=== PATIENT | male | born 1945 | race Caucasian/White ===

== ENCOUNTER → 2017-12-01 13:18 | Outpatient (CLI) | payer MEDICARE, OTHER, SELFPAY ==
[2017-12-01 14:04] LABS: Appearance Urine UA CLOUDY; Bilirubin Urine UA 1+ (NEGATIVE); Color Urine UA YELLOW; Glucose Urine UA NEGATIVE (Normal); Ketones Urine UA NEGATIVE (NEGATIVE); Leukocyte Esterase Urine UA 1+ (NEGATIVE); Nitrite Urine UA Negative (Negative); Occult Blood Urine UA 3+ (Negative); Protein Urine UA 3+ (Negative); Specific Gravity Urine UA 1.025 (1.000-1.035); Urobilinogen Urine UA 0.2 E.U./dL (0.2)
[2017-12-01 14:12] LABS: Ictotest Urine Negative (Negative)
[2017-12-01 14:17] LABS: Bacteria Urine Occasional (0-1); Culture Indicated Urine Specimen Cultured; RBC Urine 10-30/HPF (0-5/HPF); WBC Urine 10-30/HPF (0-5/HPF)
== END ==
PROVIDERS: PCP Student in an Organized Health Care Education/Training Program; Visit Provider Urology
DX: R30.0 Dysuria (principal)
CPT/HCPCS: 81001; 87086

== ENCOUNTER 2017-12-01 15:27 | Emergency (ER) | payer MEDICARE, OTHER, SELFPAY ==
--- NOTE | 2017-12-01 15:32 | DI.RAD.S_ITS ---
PROCEDURE: XR CHEST 2V INDICATIONS: postop fever with cough TECHNIQUE: 2 views of the chest were acquired. COMPARISON: [facility], , CHEST 1VW (PORTABLE), 03/26/2013, 12:40. FINDINGS: Surgical changes and devices: None. Lungs and pleura: No pleural effusions or pneumothorax. Lungs are clear. Right hemidiaphragm eventration. Mediastinum: Mediastinal contours are normal. Heart size is normal. Bones and chest wall: No suspicious bony abnormalities. Soft tissues appear unremarkable. IMPRESSION: No acute cardiopulmonary disease. Dictated by: Seema Day M.D. on 12/01/2017 at 15:51 Approved by: Seema Day M.D. on 12/01/2017 at 15:52
[2017-12-01 15:33] VITALS: BP 176/86; PULSE 86; RESP 18; TEMP 38.7; O2SAT 97; BMI 26.6
--- NOTE | 2017-12-01 15:43 | ED.FEVER ---
HPI - Fever General Chief Complaint: Fever Stated Complaint: FEVER, 10 DAYS POST OP, COUGH Time Seen by Provider: 12/01/17 15:31 Source: patient Mode of arrival: ambulatory Limitations: no limitations History of Present Illness HPI Narrative: Patient is here for evaluation of a fever. Earlier this month he had a TURP completed. He states that he had the catheter removed approximately 4 days ago. He states since then he has had urinary frequency and urgency and burning in blood. Developed a fever over the past 24 hr. Has also had a cough. Was also had upper abdominal pain but this does not seem to be new. He has had this for months. Has seen GI in the past for this. Related Data Home Medications Medication Instructions Recorded Confirmed levothyroxine [Synthroid] 25 mcg PO QDAY #0 01/21/17 11/01/17 rosuvastatin [Crestor] 20 mg PO QDAY #0 01/21/17 11/01/17 omega-3 acid ethyl esters [Lovaza] 1 gm PO #0 04/07/17 11/01/17 vitamin B complex [B 1 tab PO QDAY #0 04/07/17 11/01/17 Complex-Vitamin B12] Previous Rx's Medication Instructions Recorded tramadol 50 mg PO SEE INSTRUCTIONS #30 tab 04/07/17 pregabalin [Lyrica] 150 mg PO SEE INSTRUCTIONS #14 cap 04/11/17 naratriptan 2.5 mg PO SEE INSTRUCTIONS PRN #36 05/02/17 tab indomethacin 25 mg capsule 25 mg PO .see instructions #27 cap 11/01/17 pregabalin 200 mg capsule 200 mg PO BID #60 cap 11/01/17 levofloxacin [Levaquin] 750 mg PO DAILY 5 Days #5 tab 12/01/17 Allergies Allergy/AdvReac Type Severity Reaction Status Date / Time No Known Drug Allergies Allergy Verified 12/01/17 15:33 Review of Systems Constitutional Denies body ache(s), Reports chills, Denies fatigue, Reports fever(s) and Denies headache(s) ENT Ears, Nose, Mouth, and Throat: Denies headache(s) Cardiovascular Denies chest pain, Denies palpitations and Denies dyspnea Respiratory Denies cough and Denies dyspnea Gastrointestinal Gastrointestinal: Reports abdominal pain, Denies melena, Denies nausea and Denies vomiting Genitourinary Reports hematuria, Reports dysuria, Reports urinary frequency, Reports urinary hesitancy and Reports urinary urgency Integumentary/Breasts Denies lesions and Denies rash Neurologic Denies confusion and Denies headache(s) Psychiatric Denies confusion Endocrine Denies fatigue and Denies palpitations [facility] Medical History Hemicrania continua (Chronic) Chronic migraine without aura, with status migrainosus (Chronic) Social History Smoking Status: Never smoker Exam Initial Vital Signs Initial Vital Signs: Vital Signs Temperature 101.6 F H 12/01/17 15:33 Pulse Rate 86 12/01/17 15:33 Respiratory Rate 18 12/01/17 15:33 Blood Pressure 176/86 H 12/01/17 15:33 Pulse Oximetry 97 12/01/17 15:33 Const General: cooperative, healthy appearing, comfortable, well developed, well groomed and No acute distress Orientation: alert, awake and oriented x3 HENMT Head: normal to inspection and normocephalic Cardio Rate: regular rate Rhythm: regular rhythm Pulses: radial pulses present GI Inspection: non-distended Palpation: soft, firm and tender ( Epigastric pain) Back/Spine/Pelvis Back: No CVA tenderness Skin Lesions: no lesions Rashes: no rashes Neuro General: alert, awake, oriented x3 and oriented Extrem General: normal to inspection and capillary refill normal Course Orders Ordered: ED Orders 12/01/17 15:32 XR chest 2V Stat 12/01/17 16:15 Blood Culture Stat Complete Blood Count AUTO DIFF Stat Comprehensive Metabolic Panel Stat Lactate (Lactic Acid) Stat Procalcitonin Stat Discontinued Medications Acetaminophen (Tylenol) 975 mg PO NOW ONE Stop: 12/01/17 15:42 Last Admin: 12/01/17 15:52 Dose: 975 mg Ceftriaxone Sodium/Dextrose (Rocephin) 1 gm in 50 mls @ 100 mls/hr IV NOW ONE Stop: 12/01/17 16:11 Last Infusion: 12/01/17 17:53 Dose: 0 mls/hr Admin: 12/01/17 15:52 Dose: 100 mls/hr Ibuprofen (Advil) 800 mg PO NOW ONE Stop: 12/01/17 17:50 Last Admin: 12/01/17 17:52 Dose: 800 mg Vital Signs - 8 hr 12/01/17 15:33 12/01/17 16:38 12/01/17 17:40 Temperature 101.6 F H Pulse Rate 86 91 H 83 Respiratory Rate 18 17 15 Blood Pressure 176/86 H Blood Pressure [Right Arm] 117/68 115/65 Pulse Oximetry 97 95 96 12/01/17 17:52 12/01/17 17:53 12/01/17 17:58 Temperature 103.6 F H 103.6 F H 103.6 F H Pulse Rate 83 Respiratory Rate Blood Pressure 115/65 Blood Pressure [Right Arm] Pulse Oximetry 95 MDM - Fever Medical Records Attestation: I reviewed the patient's medical records. Lab Data Attestation: I reviewed the patient's lab results. Result diagrams: 12/01/17 16:15 12/01/17 16:15 Lab Results 12/01/17 12/01/17 12/01/17 Range/Units 16:15 16:15 16:15 WBC 9.0 (4.5-11.0) X10^3/uL RBC 4.69 (4.5-5.9) X10^6/uL Hgb 14.8 (13.5-17.5) g/dL Hct 43.1 (41-53) % MCV 91.9 (80-100) fL MCH 31.6 (26-34) PG MCHC 34.4 (30-36) % RDW 13.9 (11.6-14.8) % Plt Count 102 L (150-400) X10^3/uL Neut % (Auto) 83.6 H (50-75) % Lymph % (Auto) 8.0 L (25-40) % [place]duffie % (Auto) 7.9 (3-14) % Eos % (Auto) 0.1 L (2-4) % Baso % (Auto) 0.4 (0-2) % Neut # (Auto) 7600 H (9213-3090) /uL Sodium 136 L (137-145) mmol/L Potassium 4.3 (3.4-5.1) mmol/L Chloride 97 L (98-107) mmol/L Carbon Dioxide 28 (22-32) mmol/L BUN 16 (9-20) mg/dL Creatinine 0.90 (0.66-1.25) mg/dL Estimated GFR > 60.0 (>60) mL/min BUN/Creatinine Ratio 17.8 (6-22) Glucose 125 H (80-110) mg/dL Lactate 1.9 (0.7-2.1) mmol/L Calcium 9.4 (8.4-10.2) mg/dL Total Bilirubin 1.2 (0.2-1.3) mg/dL AST 33 (17-59) IU/L ALT 27 (21-72) IU/L Alkaline Phosphatase 74 (38-126) U/L Total Protein 7.5 (6.3-8.2) g/dL Albumin 4.6 (3.5-5.0) g/dL Globulin 2.9 (1.7-4.1) g/dL Albumin/Globulin Ratio 1.6 (1.0-2.8) Procalcitonin (<0.5) ng/mL 12/01/17 Range/Units 16:15 WBC (4.5-11.0) X10^3/uL RBC (4.5-5.9) X10^6/uL Hgb (13.5-17.5) g/dL Hct (41-53) % MCV (80-100) fL MCH (26-34) PG MCHC (30-36) % RDW (11.6-14.8) % Plt Count (150-400) X10^3/uL Neut % (Auto) (50-75) % Lymph % (Auto) (25-40) % Mcduffie % (Auto) (3-14) % Eos % (Auto) (2-4) % Baso % (Auto) (0-2) % Neut # (Auto) (6378-5737) /uL Sodium (137-145) mmol/L Potassium (3.4-5.1) mmol/L Chloride (98-107) mmol/L Carbon Dioxide (22-32) mmol/L BUN (9-20) mg/dL Creatinine (0.66-1.25) mg/dL Estimated GFR (>60) mL/min BUN/Creatinine Ratio (6-22) Glucose (80-110) mg/dL Lactate (0.7-2.1) mmol/L Calcium (8.4-10.2) mg/dL Total Bilirubin (0.2-1.3) mg/dL AST (17-59) IU/L ALT (21-72) IU/L Alkaline Phosphatase (38-126) U/L Total Protein (6.3-8.2) g/dL Albumin (3.5-5.0) g/dL Globulin (1.7-4.1) g/dL Albumin/Globulin Ratio (1.0-2.8) Procalcitonin 0.06 (<0.5) ng/mL Imaging Data Chest x-ray: Radiologist's impression: PROCEDURE: XR CHEST 2V INDICATIONS: postop fever with cough TECHNIQUE: 2 views of the chest were acquired. COMPARISON: [facility], , CHEST 1VW (PORTABLE), 03/26/2013, 12:40. FINDINGS: Surgical changes and devices: None. Lungs and pleura: No pleural effusions or pneumothorax. Lungs are clear. Right hemidiaphragm eventration. Mediastinum: Mediastinal contours are normal. Heart size is normal. Bones and chest wall: No suspicious bony abnormalities. Soft tissues appear unremarkable. IMPRESSION: No acute cardiopulmonary disease. Dictated by: Seema Day M.D. on 12/01/2017 at 15:51 Approved by: Seema Day M.D. on 12/01/2017 at 15:52 MDM Narrative Medical decision making narrative: patient with a recent surgical procedure and recent removal of catheter. in the setting of his fever in the way that his urinalysis looks mode after assume that the fevers caused by a urinary tract infection. I do not have a culture available to me to look for any sort of sensitivities Patient was given Tylenol for his fever and then Motrin. He was nontoxic appearing. Chest x-ray shows no signs of pneumonia. He does have chronic abdominal pain. Will hold on a CT scan for now. I feel that this pain is not the cause of his fever today. Patient did not have an elevated white count. Lactate was less than 2. Patient was not hypotensive. Patient was given a g of Rocephin here in the emergency department. Patient stated that he felt well enough like he could go home and try a course of oral antibiotics. Will send home on Levaquin. He was given return precautions. He expressed understanding and agreement with plan Discharge Plan Departure Patient Disposition: Home, Self-Care Clinical Impression: Urinary tract infection Discharge Date/Time: 12/01/17 17:59 Interventions: ED Discharge Assessment Last Done: 12/01/17 17:58 Instructions: DI for Urinary Tract Infection (UTI) Activity Restrictions/Additional Instructions: take all of the medication like we discussed. Make sure your increasing your fluid intake. Keep all of your scheduled medical appointments. Return to the emergency department for any new symptoms, worsening symptoms, inability to tolerate the antibiotics, or any other concerning symptoms. Recommend that you also take Tylenol/ acetaminophen for any fevers. Prescriptions: New levofloxacin [Levaquin] 750 mg tablet 750 mg PO DAILY 5 Days Qty: 5 RF: 0 No Action levothyroxine [Synthroid] 25 MCG tablet 25 mcg PO QDAY Qty: 0 RF: 0 rosuvastatin [Crestor] 20 MG tablet 20 mg PO QDAY Qty: 0 RF: 0 tramadol 50 MG tablet 50 mg PO SEE INSTRUCTIONS Qty: 30 RF: 5 omega-3 acid ethyl esters [Lovaza] 1 GM capsule 1 gm PO Qty: 0 RF: 0 vitamin B complex [B Complex-Vitamin B12] 1 EACH tablet 1 tab PO QDAY Qty: 0 RF: 0 pregabalin [Lyrica] 150 MG capsule 150 mg PO SEE INSTRUCTIONS Qty: 14 RF: 0 naratriptan 2.5 MG tablet 2.5 mg PO SEE INSTRUCTIONS PRNQty: 36 RF: 3 indomethacin 25 mg capsule 25 mg PO .see instructions Qty: 27 RF: 0 pregabalin [Lyrica] 200 mg capsule 200 mg PO BID Qty: 60 RF: 5
[2017-12-01] MEDS: ACETAMINOPHEN 325 MG TABLET 975 MG PO (15:52)
[2017-12-01] MEDS: CEFTRIAXONE 1 GM/50 ML FROZ.PIGGY IV (15:52)
[2017-12-01 16:25] LABS: Add Manual Diff / Slide Review NO; Basophils Percent Auto 0.4 % (0-2); Eosinophils Percent Auto 0.1 % (2-4); Hematocrit 43.1 % (41-53); Hemoglobin 14.8 g/dL (13.5-17.5); Mean Corpuscular HGB Conc 34.4 % (30-36); Mean Corpuscular Hemoglobin 31.6 PG (26-34); Mean Corpuscular Volume 91.9 fL (80-100); Monocytes Percent Auto 7.9 % (3-14); Neutrophils Absolute Auto 7600 /uL (3000-5900); Neutrophils Percent Auto 83.6 % (50-75); Platelet Count 102 X10^3/uL (150-400); Red Blood Cell Count 4.69 X10^6/uL (4.5-5.9); Red Cell Distribution Width 13.9 % (11.6-14.8)
[2017-12-01 16:35] LABS: Lactate (Lactic Acid) 1.9 mmol/L (0.7-2.1)
[2017-12-01 16:38] VITALS: BP 117/68; PULSE 91; RESP 17; O2SAT 95
[2017-12-01 16:50] LABS: Alanine Aminotransferase 27 IU/L (21-72); Albumin 4.6 g/dL (3.5-5.0); Albumin Globulin Ratio 1.6 (1.0-2.8); Alkaline Phosphatase 74 U/L (38-126); Aspartate Aminotransferase 33 IU/L (17-59); BUN Creatinine Ratio 17.8 (6-22); Bilirubin Total 1.2 mg/dL (0.2-1.3); Blood Urea Nitrogen 16 mg/dL (9-20); Calcium 9.4 mg/dL (8.4-10.2); Carbon Dioxide 28 mmol/L (22-32); Chloride 97 mmol/L (98-107); Estimated Glomerular Filt Rate > 60.0 mL/min (>60); Globulin 2.9 g/dL (1.7-4.1); Glucose 125 mg/dL (80-110); HEMOLYSIS < 15 (0-50); Potassium 4.3 mmol/L (3.4-5.1); Sodium 136 mmol/L (137-145); Total Protein 7.5 g/dL (6.3-8.2)
[2017-12-01 16:57] LABS: Procalcitonin 0.06 ng/mL (<0.5)
[2017-12-01 17:40] VITALS: BP 115/65; PULSE 83; RESP 15; O2SAT 96
[2017-12-01 17:52] VITALS: TEMP 39.8
[2017-12-01] MEDS: IBUPROFEN 400 MG TABLET 800 MG PO (17:52)
[2017-12-01 17:53] VITALS: TEMP 39.8
[2017-12-01 17:58] VITALS: BP 115/65; PULSE 83; TEMP 39.8; O2SAT 95
== END 2017-12-01 17:59 | disposition home or self-care (01) ==
PROVIDERS: Emergency Provider Emergency Medicine; Family Provider Student in an Organized Health Care Education/Training Program; PCP Student in an Organized Health Care Education/Training Program
DX: N39.0 Urinary tract infection, site not specified (principal)
CPT/HCPCS: 36415; 36591; 71046; 80053; 83605; 84145; 85025; 87040; 96365; 96366; 99283; 99284

== ENCOUNTER → 2018-03-13 14:35 | Outpatient (CLI) | payer MEDICARE, OTHER, SELFPAY ==
[2018-03-13 15:48] LABS: BUN Creatinine Ratio 21.3 (6-22); Blood Urea Nitrogen 17 mg/dL (9-20); Estimated Glomerular Filt Rate > 60.0 mL/min (>60)
== END ==
PROVIDERS: Family Provider Student in an Organized Health Care Education/Training Program; PCP Student in an Organized Health Care Education/Training Program; Visit Provider Neurological Surgery
DX: M99.83 Other biomechanical lesions of lumbar region (principal); M54.5 Low back pain; Z98.1 Arthrodesis status; M54.6 Pain in thoracic spine; M54.18 Radiculopathy, sacral and sacrococcygeal region
CPT/HCPCS: 36415; 82565; 84520

== ENCOUNTER → 2018-03-14 11:40 | Outpatient (CLI) | payer MEDICARE, OTHER, SELFPAY ==
--- NOTE | 2018-03-14 | DI.MRI.S_ITS ---
PROCEDURE: MR THORACIC SPINE WO/W CON INDICATIONS: LOW BACK PAIN/ARTHRODESIS STATUS TECHNIQUE: Noncontrast sagittal T1 spin echo and T2 fast spin echo, sagittal STIR, axial T1 and T2 fast spin echo through the thoracic spine. After the administration of contrast, axial and sagittal T1 spin echo with fat saturation through the thoracic spine. COMPARISON: [facility], CT, THORAX WITH CONTRAST, 06/27/2013, 8:27. [facility], , C-SPINE WITHOUT CONTRAST, 06/05/2014, 8:41. [place], [place], PET/CT WHOLE BODY EXTENDED, 01/19/2017, 11:17. [place], [place], BONE SCAN WHOLE BODY, 12/31/2016, 11:21. [facility], , T-SPINE WITHOUT CONTRAST, 12/21/2016, 11:05. [facility], THORACIC SPINE 2 VIEWS, 11/14/2016, 16:45. [facility], , L-SPINE WITHOUT CONTRAST, 06/22/2017, 11:55. FINDINGS: Image quality: Excellent. Alignment and curvature: There is normal bony alignment. C3-C5 cervical anterior fusion is present. Osseous fusion is noted at C6-7. Marrow: Marrow is of normal overall signal. There is unchanged enhancing, hypointense T1 and hyperintense T2 at T8. No acute vertebral body compression fractures. Spinal cord: Visualized spinal cord is of normal signal and size, without abnormal enhancement. Paraspinous soft tissues: No paravertebral masses or abnormal enhancement. Punctate T2 hyperintensity is present within the right kidney too small to definitively characterize but suggestive of a small cyst. Miscellaneous: Central canal and foramina appear widely patent at all scanned levels. Multilevel mild to moderate disc bulges are present. Trace disc bulge is present T3-T4, T4-T5, T12-L1. IMPRESSION: 1. Partially visualized cervical fusion as above. 2. Persistent enhancing T2 hyperintensity at the level of T8, unchanged. As previously noted, this is most suggestive of a hemangioma. Dictated by: Cece Adair M.D. on 03/14/2018 at 14:28 Approved by: Cece Adair M.D. on 03/14/2018 at 14:36
== END ==
PROVIDERS: Family Provider Student in an Organized Health Care Education/Training Program; PCP Student in an Organized Health Care Education/Training Program; Visit Provider Neurological Surgery
DX: M54.5 Low back pain (principal); Z98.1 Arthrodesis status
CPT/HCPCS: 72157; A9579

== ENCOUNTER → 2018-03-27 11:03 | Outpatient (CLI) | payer MEDICARE, OTHER, SELFPAY ==
--- NOTE | 2018-03-27 | DI.MRI.S_ITS ---
PROCEDURE: MR LUMBAR SPINE WO CON INDICATIONS: LOW BACK PAIN/ARTHRODESIS TECHNIQUE: Noncontrast sagittal T1 spin echo and T2 fast echo, sagittal STIR, axial T1 and T2 fast spin echo through the lumbar spine. In cases with scoliosis, additional coronal T2 fast spin echo may be performed. COMPARISON: [facility], , L-SPINE WITHOUT CONTRAST, 06/22/2017, 11:55. FINDINGS: Image quality: Excellent. Alignment and Curvature: Trace retrolisthesis of L1 on L2 and L2 on L3 as well as L3 on L4. Grade 1 anterolisthesis of L4 on L5. Grade 1 retrolisthesis of L5 on S1 Bone Marrow: Marrow is of normal overall signal. Chronic T12 and L1 compression fractures appear grossly unchanged. Spinal Cord: Conus medullaris terminates at the L1-L2 level. Visualized cord demonstrates normal signal and size. Paraspinous Soft Tissues: No paravertebral masses. L1-L2: Broad-based posterior disc bulge and bilateral facet disease. No definite canal stenosis. Symmetric partial effacement of the lateral recesses. Severe left foraminal narrowing. Mild right foraminal narrowing. L2-L3: Broad-based posterior disc bulge and bilateral facet arthropathy. Status post posterior decompression. No residual high-grade canal stenosis. Minimal symmetric effacement of the lateral recesses. Moderate left and mild right foraminal narrowing. L3-L4: Broad-based posterior disc bulge and bilateral facet disease. Moderate central canal narrowing. Partial effacement of the lateral recesses however this appears symmetric. No interval change. Severe bilateral foraminal narrowing which is also unchanged L4-L5: Broad-based posterior disc bulge and bilateral facet arthropathy. There is partial effacement of both lateral recesses however this appears symmetric. No interval change. Mild central canal narrowing. Moderate left and moderate to severe right foraminal stenosis L5-S1: Broad-based posterior disc bulge and mild facet arthropathy. Mild epidural lipomatosis. No definite central canal stenosis. Minimal left lateral recess narrowing although asymmetric appearance to the right. This appears grossly unchanged. Moderate left and minimal right foraminal narrowing. IMPRESSION: Overall, grossly unchanged examination since 06/22/17. Redemonstration of moderate L3-L4 canal stenosis. Diffuse bilateral foraminal stenoses as detailed above by spinal level most pronounced at L3-L4 (bilateral), and L4-L5 (right greater than left). Multilevel spondylolisthesis as above. Dictated by: Bola Lowry M.D. on 03/27/2018 at 12:43 Approved by: Bola Lowry M.D. on 03/27/2018 at 12:54
--- NOTE | 2018-03-27 | DI.RAD.S_ITS ---
PROCEDURE: XR CERVICAL SPINE 4V OR 5V INDICATIONS: NECK PAIN TECHNIQUE: 5 views of the cervical spine were acquired. COMPARISON: [facility], , CERVICAL SPINE 2 OR 3 VIEWS, 07/06/2011, 16:19. FINDINGS: Bones: No fractures or dislocations to the C7 level. No suspicious bony lesions. Status post ACDF from C3-C5. Expected postoperative alignment. Chronic osseous fusion from C3-C5. There is diffuse osteopenia. There is diffuse facet arthropathy. Mild disc space narrowing at C5-C6. Soft tissues: Prevertebral soft tissues are normal in thickness. IMPRESSION: Status post C3-C5 ACDF. No evidence of hardware failure. Mild C5-C6 disc degeneration. This appears grossly unchanged since the prior study. Diffuse facet arthropathy. No evidence of abnormal motion. Dictated by: Bola Lowry M.D. on 03/27/2018 at 14:43 Approved by: Bola Lowry M.D. on 03/27/2018 at 14:45
== END ==
PROVIDERS: PCP Student in an Organized Health Care Education/Training Program; Visit Provider Neurological Surgery
DX: M48.061 Spinal stenosis, lumbar region without neurogenic claudication (principal); M48.07 Spinal stenosis, lumbosacral region; M47.812 Spondylosis without myelopathy or radiculopathy, cervical region; M50.322 Other cervical disc degeneration at C5-C6 level; M51.26 Other intervertebral disc displacement, lumbar region; M51.27 Other intervertebral disc displacement, lumbosacral region; M43.16 Spondylolisthesis, lumbar region; Z98.1 Arthrodesis status
CPT/HCPCS: 72050; 72148

== ENCOUNTER → 2018-04-07 06:07 | Outpatient (CLI) | payer MEDICARE, OTHER, SELFPAY ==
--- NOTE | 2018-04-07 | DI.MRI.S_ITS ---
PROCEDURE: MR CERVICAL SPINE WO CON INDICATIONS: LOW BACK PAIN/MIGRAINES TECHNIQUE: Noncontrast sagittal T1 spin echo and T2 fast spin echo, sagittal STIR, foraminal oblique sagittal T2 fast spin echo, and axial gradient echo or T2 fast spin echo through the cervical spine. COMPARISON: [facility], CR, XR CERVICAL SPINE 4V OR 5V, 03/27/2018, 13:03. [facility], MR, C-SPINE WITHOUT CONTRAST, 06/05/2014, 8:41. FINDINGS: Image quality: Excellent. Alignment and Curvature: There is normal bony alignment. Bone Marrow: Marrow demonstrates normal overall signal. Anterior fusion of C3-C5 has been performed, as before. Prior C6-C7 fusion has been performed, as before. Spinal Cord: Visualized spinal cord has normal size and signal. No cerebellar tonsillar herniation. Paraspinous Soft Tissues: No paravertebral masses. Prevertebral soft tissues are normal in thickness. C2-C3: Congenital canal stenosis. Moderate disc desiccation. Mild diffuse disc bulge with superimposed small central protrusion. Bilateral facet hypertrophy. There is increased, moderate to severe canal stenosis. Mild left and no right foraminal stenosis is unchanged. C3-C4: Status post fusion. Bilateral facet hypertrophy. No significant canal stenosis. Mild bilateral foraminal stenosis. No change. C4-C5: Status post fusion. Bilateral facet hypertrophy. No canal stenosis. Mild left greater than right foraminal stenosis. No change. C5-C6: Moderate disc height loss and desiccation. Moderate diffuse disc bulge/osteophyte. Congenital canal stenosis. Bilateral facet and uncovertebral hypertrophy. Increased, severe canal stenosis. Mild cord flattening. Severe left and moderate to severe right foraminal stenoses are unchanged. C6-C7: Status post fusion. Bilateral facet and uncovertebral hypertrophy. No significant canal stenosis. Mild foraminal stenosis bilaterally. C7-T1: Disc desiccation. Bilateral facet and uncovertebral hypertrophy. No significant canal stenosis. Mild bilateral foraminal stenosis. IMPRESSION: 1. Status post C3-C5 and C6-C7 fusion. 2. Diffuse congenital canal stenosis with superimposed disc and facet disease, as well as uncovertebral hypertrophy. 3. Multilevel canal stenoses, worst at C5-C6, where there is increased, severe canal stenosis. Increased, moderate to severe C2-C3 Canal stenosis. 4. Multilevel foraminal stenoses, worst at C5-C6 bilaterally. Dictated by: Cindy Martin M.D. on 04/07/2018 at 9:17 Approved by: Cindy Martin M.D. on 04/07/2018 at 9:24
== END ==
PROVIDERS: PCP Student in an Organized Health Care Education/Training Program; Visit Provider Neurological Surgery
DX: G43.909 Migraine, unspecified, not intractable, without status migrainosus (principal); M50.21 Other cervical disc displacement, high cervical region; M48.02 Spinal stenosis, cervical region; M54.5 Low back pain; Z98.1 Arthrodesis status
CPT/HCPCS: 72141

== ENCOUNTER → 2018-05-08 14:35 | Outpatient (CLI) | payer MEDICARE, OTHER, SELFPAY ==
--- NOTE | 2018-05-08 | DI.CT.S_ITS ---
PROCEDURE: CT LUMBAR SPINE WO CON INDICATIONS: ARTHRODESIS STATUS TECHNIQUE: Noncontrast 3 mm thick sections acquired from the T12 level to the sacrum. Sagittal and coronal reformats were constructed. For radiation dose reduction, the following was used: automated exposure control. COMPARISON: [facility], CR, XR CHEST 2V, 12/01/2017, 15:17. [facility], MR, MR LUMBAR SPINE WO CON, 03/27/2018, 11:25. FINDINGS: Image quality: Excellent. Bones: Posterior fusion is present from L3-L4 with intervertebral spacer. Hardware is intact without evidence of loosening. The left pedicular screw at L4 traverses the lateral most aspect of the spinal canal. There is an unchanged appearance of wedge deformity at T12 and L1. There is trace retrolisthesis of L1 on L2, L2 on L3, L5 on S1, trace anterolisthesis of L4 on L5. Postoperative paraspinous fluid is present at L3-L5. There is a focal fluid collection measuring 24 mm AP by 38 mm transverse along the posterior paraspinous tissues at the level of the skin surface. L1-2: Mild disc bulge without spinal stenosis. There is moderate to severe left and mild right foraminal narrowing. No interval change. L2-3: Mild disc bulge without spinal stenosis. Posterior decompression is noted. Mild/moderate bilateral foraminal narrowing, left greater than right, unchanged. L3-4: Significant artifact from surgical hardware. There is no gross spinal stenosis. Moderate to severe bilateral foraminal narrowing, minimally less prominent. However, artifact limits evaluation. L4-5: Mild disc bulge without spinal stenosis. Posterior decompression is present. It is poorly evaluated without contrast. Moderate left and moderate to severe right foraminal narrowing without interval change. L5-S1: Mild disc bulge without spinal stenosis. Minimal right and moderate left foraminal narrowing with facet hypertrophy, unchanged. Soft tissues: No retroperitoneal masses or hematomas. Visualized aorta is normal in caliber. IMPRESSION: 1. Multilevel postsurgical changes as above. Focal fluid collection is noted as above near the skin surface. This could represent postoperative seroma. Without contrast, abscess cannot be definitively excluded and recommend further contrast evaluation with MR as clinically indicated. 2. Multilevel degenerative changes overall relatively stable compared to prior exam, noting postsurgical improvement as above. Dictated by: Cece Adair M.D. on 05/08/2018 at 17:11 Approved by: Cece Adair M.D. on 05/08/2018 at 17:20
== END ==
PROVIDERS: PCP Student in an Organized Health Care Education/Training Program; Visit Provider Neurological Surgery
DX: M47.816 Spondylosis without myelopathy or radiculopathy, lumbar region (principal); M47.817 Spondylosis without myelopathy or radiculopathy, lumbosacral region; Z98.1 Arthrodesis status
CPT/HCPCS: 72131

== ENCOUNTER → 2018-07-05 16:18 | Outpatient (CLI) | payer MEDICARE, OTHER, SELFPAY ==
--- NOTE | 2018-07-05 | DI.CT.S_ITS ---
PROCEDURE: CT LUMBAR SPINE WO CON INDICATIONS: LEFT LUMBAR RADICULOPATHY TECHNIQUE: Noncontrast 3 mm thick sections acquired from the T12 level to the sacrum. Sagittal and coronal reformats were constructed. For radiation dose reduction, the following was used: automated exposure control. COMPARISON: [facility], CT, CT LUMBAR SPINE WO CON, 05/08/2018, 14:34. FINDINGS: Image quality: Excellent. Bones: There is mildly abnormal bony alignment, with posterior fusion transverse screws and vertical fixation rods crossing L3-L4. Grade 1 anterolisthesis of L4 on L5 is stable over time with reference to the study from mid April of last year. Previously present chronic appearing compression fractures are seen at T12 and L1, equivalent to that previously present on the comparison study from 05/08/18. No acute vertebral body compression fractures. No suspicious lytic or blastic bony lesions. Central spinal caliber is of normal overall caliber. No pars defects. T12-L1: Stable degenerative disc height reduction, no appreciable facet hyperostosis. No spinal or foraminal stenosis. L1-L2: Mild degenerative disc height reduction, no spinal or foraminal stenosis found. L2-L3: This represents the upper level of the fusion region, with bilateral laminectomies, and the spinal canal appears widely patent. Facet degeneration is present, mild in severity. Symmetric mild foraminal stenosis appears present. This has not changed. L3-L4: Interbody cage this prosthesis, vertical fixation rods appear stable over time. Transverse pedicle screws also show no sign of displacement or disruption. 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 L4-L5: This represents the inferior margin of the fusion area, with bilateral laminectomies. Anterolisthesis of L4 and L5 is not included in the area of fixation, and facet osteoarthritic change at L4-L5 is moderately severe and associated with the grade 1 stable appearing anterolisthesis present. Disc height reduction is present as has been previously the case. The foraminal stenosis appears moderately severe at this level as was previously noted. L5-S1: Facet osteoarthritis moderate, foraminal stenosis is mild to moderate, no spinal stenosis found. Soft tissues: No retroperitoneal masses or hematomas. Visualized aorta is normal in caliber. IMPRESSION: The degenerative changes along the lumbosacral spine appear stable over time from the recent prior similar CT scanning performed 05/08/18. There is a fusion between L3 and L4 by transverse pedicle screws, bilateral vertical fixation rods and the interbody disc cage prosthesis. All of these fixation devices appear stable over time. Anterolisthesis grade 1 of L4 on L5 is again noted and there is moderately severe bilateral foraminal stenosis at this level, in addition to disc height reduction and spinal stenosis from the anterolisthesis present. While this has not changed there likely is significant potential symptomatology based on the imaging findings of both spinal and foraminal stenosis. Chronic compression fractures T12 and L1 previously noted. No postoperative hematoma or seroma is seen impinging on the spinal canal. Dictated by: Javier Chaudhry M.D. on 07/05/2018 at 16:52 Approved by: Javier Chaudhry M.D. on 07/05/2018 at 17:04
== END ==
PROVIDERS: PCP Student in an Organized Health Care Education/Training Program; Referring Provider Neurological Surgery
DX: M47.27 Other spondylosis with radiculopathy, lumbosacral region (principal); M47.26 Other spondylosis with radiculopathy, lumbar region; M43.16 Spondylolisthesis, lumbar region; M48.061 Spinal stenosis, lumbar region without neurogenic claudication; M48.07 Spinal stenosis, lumbosacral region; M48.55XS Collapsed vertebra, not elsewhere classified, thoracolumbar region, sequela of fracture; Z98.1 Arthrodesis status
CPT/HCPCS: 72131

== ENCOUNTER → 2018-07-10 11:16 | Outpatient (CLI) | payer MEDICARE, OTHER, SELFPAY ==
--- NOTE | 2018-07-10 | DI.RAD.S_ITS ---
PROCEDURE: XR LUMBAR SPINE 2-3V INDICATIONS: LT LUMBAR RADICULOPATHY TECHNIQUE: 3 views of the lumbar spine were acquired. COMPARISON: [facility], , L-SPINE 2-3 VIEWS, 07/06/2011, 16:19. FINDINGS: Bones: 5 [id number]-sed-[id number] vertebrae are present. There has been interval posterior element scratch that there has been interval bony fusion of posterior fixation hardware at the L3-L4 level and disc spacer placement. Hardware is intact. Stable, mild retrolisthesis of L2 on 3, trace retrolisthesis L1 on 2, and trace, questionable progression of grade 1 anterolisthesis L4 on 5. Redemonstration of T12 and L1 chronic compression fractures. No new fractures. Moderate hypertrophy and sclerosis of posterior elements at L4-5 and L5-S1 Soft tissues: Overlying bowel gas pattern is normal. No suspicious soft tissue calcifications. Mild abdominal aortic calcification IMPRESSION: 1. Slight interval progression of grade 1 L4 on 5 anterolisthesis. 2. Interval placement of L3-L4 fusion hardware and disc spacer. 3. Stable, trace to mild retrolisthesis in the upper lumbar spine. 4. Chronic T12 and L1 compression fractures. Dictated by: Mary Noyola M.D. on 07/10/2018 at 12:51 Approved by: Mary Noyola M.D. on 07/10/2018 at 12:54
== END ==
PROVIDERS: PCP Student in an Organized Health Care Education/Training Program; Visit Provider Nurse Practitioner Adult Health
DX: M54.16 Radiculopathy, lumbar region (principal); M43.16 Spondylolisthesis, lumbar region; M48.55XS Collapsed vertebra, not elsewhere classified, thoracolumbar region, sequela of fracture; Z98.1 Arthrodesis status; Z48.89 Encounter for other specified surgical aftercare
CPT/HCPCS: 72100

== ENCOUNTER → 2018-07-18 07:28 | Outpatient (CLI) | payer MEDICARE, OTHER, SELFPAY ==
[2018-07-18 08:51] LABS: Vitamin D 25 Hydroxy (D3) 44.9 ng/mL (30.0-100.0)
[2018-07-18 09:07] LABS: Thyroid Stimulating Hormone 4.08 uIU/mL (0.47-4.68)
[2018-07-18 09:13] LABS: Ferritin 23.4 ng/mL (17.9-464)
[2018-07-18 09:27] LABS: Vitamin B12 611 pg/mL (239-931)
[2018-07-19 15:40] LABS: Dehydroepiandrosterone Sulfate 41 mcg/dL (5-253)
== END ==
PROVIDERS: PCP Student in an Organized Health Care Education/Training Program; Visit Provider Registered Nurse
DX: E03.9 Hypothyroidism, unspecified (principal); M79.7 Fibromyalgia; R53.83 Other fatigue
CPT/HCPCS: 36415; 82306; 82607; 82627; 82728; 84403; 84443

== ENCOUNTER → 2018-10-20 11:26 | Outpatient (CLI) | payer MEDICARE, OTHER, SELFPAY | PROVIDERS: PCP Student in an Organized Health Care Education/Training Program; Visit Provider Ophthalmology | DX: K21.0 Gastro-esophageal reflux disease with esophagitis (principal); R32 Unspecified urinary incontinence; H10.9 Unspecified conjunctivitis | CPT/HCPCS: 87070; 87077; 87147; 87186; 87205 ==

== ENCOUNTER → 2018-11-17 14:02 | Outpatient (CLI) | payer MEDICARE, OTHER, SELFPAY ==
[2018-11-17 14:09] LABS: Bacteria Urine None Seen; RBC Urine None Seen (0-5/HPF)
[2018-11-17 14:55] LABS: Bilirubin Urine UA NEGATIVE (NEGATIVE); Color Urine UA YELLOW; Glucose Urine UA NEGATIVE (Negative); Ketones Urine UA TRACE (NEGATIVE); Leukocyte Esterase Urine UA NEGATIVE (NEGATIVE); Nitrite Urine UA NEGATIVE (Negative); Occult Blood Urine UA NEGATIVE (Negative); Protein Urine UA NEGATIVE (Negative); Specific Gravity Urine UA >=1.030 (1.000-1.035); Urobilinogen Urine UA 0.2 E.U./dL (0.2)
[2018-11-17 14:57] LABS: Add Manual Diff / Slide Review NO; Basophils Absolute Auto 0 /uL (0-100); Basophils Percent Auto 0.3 % (0-2); Eosinophils Absolute Auto 100 /uL (0-450); Hematocrit 41.8 % (41-53); Hemoglobin 14.3 g/dL (13.5-17.5); Lymphocytes Absolute Auto 1000 /uL (1100-4500); Lymphocytes Percent Auto 15.5 % (25-40); Mean Corpuscular HGB Conc 34.2 % (30-36); Mean Corpuscular Hemoglobin 31.6 PG (26-34); Mean Corpuscular Volume 92.5 fL (80-100); Monocytes Absolute Auto 500 /uL (0-900); Monocytes Percent Auto 7.1 % (3-14); Neutrophils Absolute Auto 5000 /uL (1500-7000); Neutrophils Percent Auto 76.1 % (50-75); Platelet Count 148 X10^3/uL (150-400); Red Blood Cell Count 4.52 X10^6/uL (4.5-5.9); Red Cell Distribution Width 14.6 % (11.6-14.8); White Blood Cell Count 6.6 X10^3/uL (4.5-11.0)
[2018-11-17 15:12] LABS: Alanine Aminotransferase 41 IU/L (21-72); Albumin 4.4 g/dL (3.5-5.0); Albumin Globulin Ratio 1.5 (1.0-2.8); Alkaline Phosphatase 79 U/L (38-126); Amylase 88 U/L (30-110); Aspartate Aminotransferase 41 IU/L (17-59); BUN Creatinine Ratio 21.1 (6-22); Bilirubin Total 0.5 mg/dL (0.2-1.3); Blood Urea Nitrogen 19 mg/dL (9-20); C-Reactive Protein Quant 0.6 mg/dL (<1.0); Calcium 9.4 mg/dL (8.4-10.2); Carbon Dioxide 28 mmol/L (22-32); Chloride 103 mmol/L (98-107); Estimated Glomerular Filt Rate > 60.0 mL/min (>60); Globulin 2.9 g/dL (1.7-4.1); Glucose 101 mg/dL (80-110); HEMOLYSIS 16 (0-50); Lipase 60 U/L (23-300); Sodium 140 mmol/L (137-145); Total Protein 7.3 g/dL (6.3-8.2)
[2018-11-17 15:32] LABS: Erythrocyte Sedimentation Rate 1 MM/HR (0-15)
[2018-11-17 15:42] LABS: Appearance Urine UA Slightly Cloudy
[2018-11-17 15:43] LABS: Amorphous Sediment Urine 1+; Calcium Oxalate Crystals Urine Moderate; Culture Indicated Urine Cult Not Indicated; Mucus Urine 3+ (Negative); Squamous Epithelial Cell Urine 0-1 /HPF (0-5/HPF); WBC Urine 1-5/HPF (0-5/HPF)
== END ==
PROVIDERS: PCP Internal Medicine; Visit Provider Internal Medicine
DX: R10.9 Unspecified abdominal pain (principal)
CPT/HCPCS: 36415; 80053; 81001; 82150; 83690; 85025; 85651; 86140

== ENCOUNTER → 2019-01-12 15:45 | Outpatient (CLI) | payer MEDICARE, OTHER, SELFPAY ==
--- NOTE | 2019-01-12 | DI.MRI.S_ITS ---
PROCEDURE: MR STROKE Pre- and post-contrast brain MRI, non-contrast brain MR angiogram, pre- and postcontrast neck MR angiogram INDICATIONS: PRIMARY STABBING HEADACHE TECHNIQUE: Brain: Noncontrast axial T1 spin echo, axial T2 fast spin echo, sagittal and axial FLAIR, coronal T2 fast spin echo, axial gradient echo, axial diffusion and ADC through the brain. After the administration of contrast, axial 3D VIBE of the cranial vasculature and brain. Brain MRA: Non-contrast 3-D time of flight MR angiogram, with multiple xrxljif-pyuwcyhbf-urqxfjsigx (MIP) reformats performed. Neck MRA: Axial and sagittal TruFISP through the neck. Coronal dynamic MR angiogram during administration of contrast in the arterial and venous phases, with 3-dimenstional ehlxenv-vmuewktcs-thxfbqfcix (MIP) reformats constructed from subtraction images. COMPARISON: [facility], CT, HEAD WITHOUT CONTRAST, 07/06/2011, 15:47. FINDINGS: Image quality: Excellent. BRAIN: CSF spaces: Ventricles are normal in size and shape. Basal cisterns are patent. No extra-axial fluid collections. Brain: No intracranial bleeds or mass effects. A prior CT, there was a partially calcified extra-axial mass, as on series 2 image 31 and this does not enhance and is seen as hypointense on all images. This can be seen on series 36 image 102 and on series 7 image 98. Rossi-white matter interface is normal. Diffusion weighted images show no acute ischemic insults. Brain volume loss is seen. Chronic small vessel ischemic change is seen. Brainstem appears normal. Normal intravascular flow voids are present. No abnormal intracranial enhancement. Skull and face: There is area of cystic bone seen on the left superiorly, as on series 22 image 23. No abnormal enhancement can be seen at this site or this is considered to be stable compared to the 2012 CT examination. Calvarial marrow signal is normal. Orbits appear normal. Sinuses: Sinuses and mastoids are clear. There is mild leftward nasal septal deviation seen. BRAIN MR ANGIOGRAM: Anterior circulation: Intracranial internal carotid arteries are normal in size and enhancement. There is a diminutive right A1 segment, with a corresponding robust left A1 segment. This is considered to be a normal developmental variant of the [place], of typically no clinical consequence. The flow within the paired anterior cerebral arteries is otherwise normal and symmetric. The flow within the middle cerebral arteries is normal and symmetric. The anterior communicating artery is seen. No stenoses, occlusions, or aneurysms. Posterior circulation: The visualized portions of the vertebral arteries demonstrate normal caliber, and join to form a normal appearing basilar artery. The flow within the posterior cerebral arteries is normal and symmetric. No stenoses, occlusions, or aneurysms. NECK MR ANGIOGRAM: Carotids: Great vessels demonstrate a conventional anatomy as they arise from the aortic arch. The origins of the common carotid arteries appear patent. The calibers and courses of both common carotid arteries are normal. The bifurcation regions appear normal bilaterally. The internal carotid arteries demonstrate normal course and caliber. Posterior circulation: The origins of the vertebral arteries appear patent. The proximal left vertebral artery is tortuous. More superior portions of both vertebral arteries demonstrate normal caliber, and join to form a normal appearing basilar artery. Miscellaneous: Subclavian arteries appear patent. Pre-contrast images through the neck show no soft tissue abnormalities. IMPRESSION: BRAIN MRI: No findings of acute or subacute infarction can be seen. Note is made of age-appropriate brain parenchymal volume loss and chronic small vessel ischemic changes. No masses or abnormal enhancement can be seen. BRAIN MR ANGIOGRAM: No significant intracranial arterial abnormality can be seen. NECK MR ANGIOGRAM: Within the arteries of the neck, no hemodynamically significant stenosis can be seen. Dictated by: Brent Brian M.D. on 01/12/2019 at 16:28 Approved by: Brent Brian M.D. on 01/12/2019 at 16:35
== END ==
PROVIDERS: Family Provider Neurological Surgery; PCP Internal Medicine; Referring Provider Psychiatry & Neurology Neurology; Visit Provider Internal Medicine
DX: G44.85 Primary stabbing headache (principal)
CPT/HCPCS: 70548; 70553

== ENCOUNTER → 2019-01-30 11:51 | Outpatient (CLI) | payer MEDICARE, OTHER, SELFPAY ==
--- NOTE | 2019-01-30 | DI.RAD.S_ITS ---
PROCEDURE: XR LUMBAR SPINE 2-3V INDICATIONS: LOWER BACK PAIN BOTH SIDES TECHNIQUE: 3 views of the lumbar spine were acquired. COMPARISON: [facility], CR, XR LUMBAR SPINE 2-3V, 07/10/2018, 11:28. FINDINGS: Bones: Unchanged mild anterior wedging of the T12 and L1 vertebral bodies. Posterior spinal fixation from L3-L4. Interbody cage graft also noted. The hardware appears intact and no evidence of hardware loosening. Unchanged alignment. Grade 1 retrolisthesis of L2 on L3 and L4 on L5 which appear unchanged. Mild narrowing of the L4-L5 disc space which is unchanged. Multilevel degenerative endplate sclerosis and spurring. Diffuse facet arthropathy. Status post posterior decompression. Soft tissues: Overlying bowel gas pattern is normal. No suspicious soft tissue calcifications. IMPRESSION: Post surgical and chronic/degenerative findings as above, with no interval change since 07/10/18. Dictated by: Bola Lowry M.D. on 01/30/2019 at 15:44 Approved by: Bola Lowry M.D. on 01/30/2019 at 15:46
== END ==
PROVIDERS: Family Provider Neurological Surgery; PCP Internal Medicine; Visit Provider Physician Assistant
DX: M47.26 Other spondylosis with radiculopathy, lumbar region (principal); M48.061 Spinal stenosis, lumbar region without neurogenic claudication; Z98.1 Arthrodesis status
CPT/HCPCS: 72100

== ENCOUNTER → 2019-02-28 10:36 | Outpatient (CLI) | payer MEDICARE, OTHER, SELFPAY ==
[2019-02-28 12:12] LABS: Erythrocyte Sedimentation Rate 9 MM/HR (0-15)
[2019-02-28 12:52] LABS: Thyroid Stimulating Hormone 2.86 uIU/mL (0.47-4.68)
== END ==
PROVIDERS: Family Provider Registered Nurse; PCP Internal Medicine; Referring Provider Internal Medicine; Visit Provider Family Medicine
DX: G43.701 Chronic migraine without aura, not intractable, with status migrainosus (principal); E03.9 Hypothyroidism, unspecified
CPT/HCPCS: 36415; 84443; 85651

== ENCOUNTER → 2019-05-31 17:25 | Outpatient (CLI) | payer MEDICARE, OTHER, SELFPAY ==
--- NOTE | 2019-05-31 | DI.MRI.S_ITS ---
PROCEDURE: MR LUMBAR SPINE WO CON INDICATIONS: Radiculopathy, lumbar region TECHNIQUE: Noncontrast sagittal T1 spin echo and T2 fast echo, sagittal STIR, axial T1 and T2 fast spin echo through the lumbar spine. In cases with scoliosis, additional coronal T2 fast spin echo may be performed. COMPARISON: [facility], CR, XR LUMBAR SPINE 2-3V, 01/30/2019, 11:52. [facility], MR, MR LUMBAR SPINE WO CON, 03/27/2018, 11:25. FINDINGS: Image quality: Excellent. Alignment and Curvature: 5 lumbar type vertebral bodies are present by plain film. There is mild grade 1 retrolisthesis of L1 on L2, and L2 on L3. There is mild grade 1 anterolisthesis of L4 on L5. Bone Marrow: Marrow is of normal overall signal. No acute vertebral body compression fractures. Patient is status post L3-L4 fusion, with paired posterior rods and pedicle screws, new since the prior examination. There is mild reactive signal within the endplates adjacent to the the L3-L4 and L4-L5 intervertebral discs. Spinal Cord: Conus medullaris terminates at the upper L2 level. Visualized cord demonstrates normal signal and size. There is postsurgical STIR signal elevation within the posterior paraspinous soft tissues at L3-L5. Paraspinous Soft Tissues: No paravertebral masses. L1-L2: Mild disc height loss. Moderate disc desiccation. Mild diffuse disc bulge. Mild facet and ligament flavum hypertrophy. Mild canal stenosis. Mild bilateral foraminal stenosis. No change. L2-L3: Moderate disc desiccation. Mild disc height loss. Mild diffuse disc bulge. Mild bilateral facet hypertrophy. Mild canal stenosis. Mild bilateral foraminal stenosis. No change. L3-L4: Status post fusion. Interbody device placement. Mild diffuse residual disc bulge. Mild bilateral facet hypertrophy. There is resolution of pre-existing canal stenosis. There is no change in moderate bilateral foraminal stenosis. L4-L5: Moderate disc height loss and desiccation. Mild diffuse disc bulge with superimposed broad-based right posterolateral broad-based protrusion. Mild bilateral facet hypertrophy. Decreased, mild canal stenosis. There is no change in moderate left foraminal stenosis. There is no change in moderate to severe right foraminal stenosis with mild right L4 nerve root compression. L5-S1: Moderate disc desiccation. Mild diffuse disc bulge. Mild bilateral facet hypertrophy. There is a new small periarticular cyst arising from the left-sided facet joint, measuring 7 mm, which protrudes into the left lateral recess. Mild canal stenosis is unchanged. Moderate bilateral foraminal stenosis is unchanged. There is new mild medial deviation of the left L5 nerve root within the lateral recess. No evidence of neural compression. IMPRESSION: 1. Post surgical sequelae of L3-L4, with resolution of previously seen canal stenosis at this level. 2. Multilevel degenerative disc and facet disease, as well as ligamentum flavum hypertrophy and epidural lipomatosis. 3. Mild multilevel canal stenoses. 4. Multilevel foraminal stenoses, worst on the right at L4-L5 where there is associated L4 nerve root compression. Recommend correlation with clinical symptoms to ascertain relevance of this finding. 5. New mild medial deviation of the left L5 nerve root within the lateral recess at L5-S1. Recommend correlation with clinical symptoms to ascertain relevance of this finding. Dictated by: Cindy Martin M.D. on 06/01/2019 at 8:30 Approved by: Cindy Martin M.D. on 06/01/2019 at 8:37
== END ==
PROVIDERS: Family Provider Registered Nurse; PCP Internal Medicine; Visit Provider Orthopaedic Surgery Orthopaedic Trauma
DX: M51.16 Intervertebral disc disorders with radiculopathy, lumbar region (principal); M51.17 Intervertebral disc disorders with radiculopathy, lumbosacral region; M48.061 Spinal stenosis, lumbar region without neurogenic claudication; M48.07 Spinal stenosis, lumbosacral region; E88.2 Lipomatosis, not elsewhere classified; Z98.1 Arthrodesis status
CPT/HCPCS: 72148

== ENCOUNTER 2019-06-30 19:08 | Emergency (ER) | payer MEDICARE, OTHER, SELFPAY ==
[2019-06-30 19:17] VITALS: BP 153/72; PULSE 70; RESP 16; TEMP 37.3; O2SAT 96; BMI 27.0
--- NOTE | 2019-06-30 20:04 | DI.CT.S_ITS ---
PROCEDURE: CT CHEST ABDOMEN W CON INDICATIONS: right rib pain, h/o fractured ribs, fever chills and sweats TECHNIQUE: After the administration of intravenous contrast, 5 mm thick sections acquired from the lung apices to the iliac crests. 5 mm coronal and sagittal reformats were performed, with additional 7 mm coronal MIP reformats through the lungs. For radiation dose reduction, the following was used: automated exposure control, adjustment of mA and/or kV according to patient size. COMPARISON: [facility], CT, CT LUMBAR SPINE WO CON, 07/05/2018, 16:20. [facility], CT, THORAX WITH CONTRAST, 06/27/2013, 8:27. [facility], CT, PE STUDY (CTA CHEST), 03/11/2012, 16:49. FINDINGS: Image quality: Diagnostic. CHEST: Lungs and pleura: Mild posterior costophrenic angle atelectasis on the right is identified. There is a hypodense mass/lesion evident within the right costophrenic angle that is new since the previous exam and measures up to approximately 4.2 x 2.7 cm. A lobulated lucent area with peripheral increased density is evident along the lateral margin of the right lung apex, which is unchanged since 2013, compatible with a benign process. Mild atelectasis versus scarring within the left costophrenic angle is noted. Otherwise, the lungs are clear. Mediastinum: Heart size is normal. No pericardial effusion. Coronary artery atherosclerosis is present. Thoracic aorta and central pulmonary arteries are normal in size. Esophagus is normal in caliber. No hiatal hernia. There is a mildly prominent subcarinal lymph node identified that measures up to 1.0 cm in short axis (image 26, series 2). Small right hilar lymph nodes are also evident. Chest wall and bones: No axillary or supraclavicular adenopathy by size criteria. A compression deformity involving the T12 vertebral body is unchanged since 07/05/18. Mild degenerative changes of the thoracic spine are present. No displaced rib fractures. ABDOMEN: Solid organs: The liver is normal in size. The gallbladder is not enlarged or definitely inflamed. No focal liver lesions are evident. No intrahepatic or extrahepatic biliary dilatation is present. The pancreas, adrenals, and spleen appear to be within normal limits. The kidneys are normal in size. A small parenchymal cyst arising from the anterior portion of the mid left kidney is present. There is no hydronephrosis. Peritoneum and bowel: There is a small hiatal hernia. The stomach is otherwise unremarkable. The imaged small bowel loops are nondilated. A moderate amount of stool seen within the imaged portions of the colon. No free fluid or loculated fluid collection is evident. No free air is identified. Nodes and vessels: No retroperitoneal or mesenteric adenopathy by size criteria. Aorta and inferior vena cava are normal in size. Atherosclerosis is noted involving the origins of the celiac artery, superior mesenteric artery, and bilateral renal arteries. Bones: No suspicious bony lesions. No vertebral body compression fractures. Postoperative changes are present at the L3-4 level related to a discectomy and fusion procedure. A chronic compression deformity involving the L1 vertebral body is evident. This is unchanged since 07/05/18. IMPRESSION: 1. Rounded area of right costophrenic angle consolidation may represent either pneumonia or lung mass and clinical correlation is recommended. Percutaneous biopsy would be helpful for diagnostic purposes. 2. Mildly enlarged mediastinal and right hilar lymph nodes. 3. No acute process within the abdomen. 4. Small hiatal hernia. 5. Possible constipation. Note: The preliminary report provided by [email or web address] is concordant with the final report. Dictated by: Juan Orozco M.D. on 07/01/2019 at 8:16 Approved by: Juan Orozco M.D. on 07/01/2019 at 8:28
--- NOTE | 2019-06-30 20:08 | PC.NURSE ---
musculoskeletal, reproducable with palpation and movment. Provider at bedside.
[2019-06-30] MEDS: ONDANSETRON 4 MG/2 ML INJ IV (20:59)
[2019-06-30] MEDS: ASPIRIN 81 MG CHEW TAB 324 MG PO (20:59)
[2019-06-30] MEDS: MORPHINE 4 MG/ML INJ IV (20:59)
[2019-06-30] MEDS: SODIUM CHLORIDE 0.9% 1,000 ML 150 ML IV (20:59)
[2019-06-30 21:03] LABS: Add Manual Diff / Slide Review NO; Basophils Absolute Auto 0 /uL (0-100); Basophils Percent Auto 0.5 % (0-2); Eosinophils Absolute Auto 100 /uL (0-450); Eosinophils Percent Auto 0.9 % (2-4); Hematocrit 39.9 % (41-53); Hemoglobin 13.6 g/dL (13.5-17.5); Lymphocytes Absolute Auto 1000 /uL (1100-4500); Lymphocytes Percent Auto 12.1 % (25-40); Mean Corpuscular HGB Conc 34.1 % (30-36); Mean Corpuscular Hemoglobin 30.8 PG (26-34); Mean Corpuscular Volume 90.3 fL (80-100); Monocytes Absolute Auto 800 /uL (0-900); Monocytes Percent Auto 9.6 % (3-14); Neutrophils Absolute Auto 6200 /uL (1500-7000); Neutrophils Percent Auto 76.9 % (50-75); Platelet Count 165 X10^3/uL (150-400); Red Blood Cell Count 4.42 X10^6/uL (4.5-5.9); Red Cell Distribution Width 13.5 % (11.6-14.8); White Blood Cell Count 8.1 X10^3/uL (4.5-11.0)
[2019-06-30 21:10] LABS: Alanine Aminotransferase 21 IU/L (<50); Albumin 4.4 g/dL (3.5-5.0); Albumin Globulin Ratio 1.3 (1.0-2.8); Alkaline Phosphatase 101 U/L (38-126); Aspartate Aminotransferase 37 IU/L (17-59); BUN Creatinine Ratio 18.9 (6-22); Bilirubin Total 0.3 mg/dL (0.2-1.3); Blood Urea Nitrogen 17 mg/dL (9-20); Calcium 9.3 mg/dL (8.4-10.2); Carbon Dioxide 28 mmol/L (22-32); Chloride 102 mmol/L (98-107); Creatine Kinase 93 U/L (55-170); Estimated Glomerular Filt Rate > 60.0 mL/min (>60); Globulin 3.3 g/dL (1.7-4.1); Glucose 117 mg/dL (80-110); HEMOLYSIS < 15 (0-50); Lipase 56 U/L (23-300); Potassium 4.3 mmol/L (3.4-5.1); Sodium 139 mmol/L (137-145); Total Protein 7.7 g/dL (6.3-8.2)
[2019-06-30 21:22] LABS: Troponin I < 0.012 ng/mL (0.01-0.034)
--- NOTE | 2019-06-30 22:17 | ED.CHESTPAIN ---
HPI - Chest Pain General Chief Complaint: Chest Pain Stated Complaint: right side abdominal pain Time Seen by Provider: 06/30/19 19:51 Source: patient Mode of arrival: Ambulatory Limitations: no limitations History of Present Illness HPI narrative: Chief complaint right rib pain. History of present illness: The patient is a 74-year-old male who presents to the emergency department with right-sided rib pain which woke him from sleep at 11:30 p.m. last night. The pain and discomfort was sharp. It hurts to take a deep breath and cough. The patient had a similar episode of pain and discomfort 8 years ago when he fell and fractured a rib. He was worried that he had another fractured rib. He states that it was very uncomfortable and unable to fall back to sleep. He denied any significant shortness of breath. He has had fever with chills but no sweats. His temperature was a 101.6?. He went to the walk-in clinic and was sent to the emergency department to be re-evaluated. He has had no significant headache nasal drainage sore throat. He denies any significant cough palpitations or dizziness. Because of the pain and discomfort he has had shallow respiration and has tried not to cough. At rest his pain is 5 to 6/10 however when he is deep breathing or moving the pain becomes 9/10 in intensity. He denies any significant nausea vomiting or diarrhea. He has however had tenderness in his right upper quadrant. He denies any urinary symptoms frequency or cloudiness. Related Data Home Medications Medication Instructions Recorded Confirmed levothyroxine [Synthroid] 25 mcg PO QDAY #0 01/21/17 10/17/18 rosuvastatin [Crestor] 20 mg PO QDAY #0 01/21/17 10/17/18 omega-3 acid ethyl esters [Lovaza] 1 gm PO #0 04/07/17 10/17/18 vitamin B complex [B 1 tab PO QDAY #0 04/07/17 10/17/18 Complex-Vitamin B12] Previous Rx's Medication Instructions Recorded pregabalin [Lyrica] 150 mg PO SEE INSTRUCTIONS #14 cap 04/11/17 indomethacin 25 mg capsule 25 mg PO .see instructions #27 cap 11/01/17 erenumab-aooe 70 mg/mL 140 mg SUBCUT QMONTH #2 ml 01/25/18 subcutaneous auto-injector tramadol 50 mg tablet 50 mg PO Q6H #30 tab 01/25/18 naratriptan 2.5 mg tablet 2.5 mg PO .COMPLEX PRN #27 tab 06/19/18 pregabalin 200 mg capsule 200 mg PO BID #180 cap 06/28/18 pregabalin 200 mg capsule 200 mg PO BID #60 cap 06/28/18 naratriptan 2.5 mg tablet 2.5 mg PO ONCE #10 tab 10/10/18 naratriptan 2.5 mg tablet 2.5 mg PO Q4H PRN #60 tab 05/24/19 pregabalin 100 mg capsule 100 mg PO BID #180 cap 05/24/19 tramadol 50 mg tablet 25 mg PO Q6H PRN #50 tab 05/24/19 levofloxacin [Levaquin] 500 mg PO DAILY #10 tab 06/30/19 naproxen [Naprosyn] 500 mg PO BID PRN #20 tab 06/30/19 prochlorperazine maleate 10 mg PO Q6H PRN #10 tab 06/30/19 [Compazine] Allergies Allergy/AdvReac Type Severity Reaction Status Date / Time No Known Drug Allergies Allergy Verified 06/30/19 19:17 Review of Systems Review of Systems ROS Unobtainable: All systems reviewed & are unremarkable except as noted in HPI and below Patient History Medical History Chronic migraine without aura, with status migrainosus (Chronic) Hemicrania continua (Chronic) Surgical History History of carpal tunnel surgery (Acute) History of fusion of cervical spine (Acute) History of heart artery stent (Acute) History of hernia repair (Acute) History of laminectomy (Acute) History of lumbar fusion (Acute) S/P TURP (status post transurethral resection of prostate) (Acute) Social History Smoking Status: Never smoker Smoking Status: Never smoker alcohol intake frequency: 0-2 drinks per day Substance Use Type: does not use Exam Narrative Exam Narrative: PHYSICAL EXAM: CONSTITUTIONAL: Awake, Alert, Oriented, Coherent, Cooperative in NAD. Does not appear toxic or ill. He acts as though he is splinting his right side of his chest. HEAD: AT/NC EENT: PERRL, FROM of eyes, no discharge, no nystagmus Oral mucosa is moist and pink, posterior pharynx is without erythema or exudate. NECK: Supple, no obvious JVD, Trachea is midline without stridor, no palpable LN or masses. SPINE: No gross deformity, no palpable tenderness of the cervical, thoracic, lumbar or sacral spine. No CVA tenderness. THORAX: No deformity, retractions, subcutaneous air or crepitice. The patient's left lower lateral ribs are tender to palpation but there is no palpable deformity. LUNGS: Breath sounds are basically clear with inspiratory crackles in the right lateral and lower lung garcia. There is no wheezing or rhonchi appreciated. The patient's breath sounds are slightly decreased on the right with the patient's splinting. HEART: Normal heart tones, regular rhythm and rate without murmur. ABDOMEN: Soft with tenderness in the right upper quadrant epigastrium and left upper EXTREMITIES: No edema, cyanosis, deformity or tenderness. SKIN: No rash, bruising, petechiae or purpura. NEURO: Awake, alert, oriented, conversive, cranial nerves II-XII are symmetrical and normal, moves all 4 extremities and is ambulatory Initial Vital Signs Initial Vital Signs: Vital Signs Temperature 99.2 F 06/30/19 19:17 Pulse Rate 70 06/30/19 19:17 Respiratory Rate 16 06/30/19 19:17 Blood Pressure 153/72 H 06/30/19 19:17 Pulse Oximetry 96 06/30/19 19:17 Course Course Course Narrative: 232 CT scan per the radiologist revealed that the patient has a right lower lobe pneumonia follow-up to resolution recommended. There were no other acute pneumothorax or fractures noted. CT of the abdomen with contrast did not show any significant pathology other than fecal i retention. Orders Ordered: Discontinued Medications Aspirin (Aspirin Chew) 324 mg PO NOW ONE Stop: 06/30/19 20:03 Last Admin: 06/30/19 20:59 Dose: 324 mg Documented by: VANESSA Sodium Chloride (Normal Saline 0.9%) 1,000 mls @ 150 mls/hr IV CONT MARLON Last Infusion: 07/01/19 01:12 Dose: 0 mls/hr Documented by: Admin: 06/30/19 20:59 Dose: 150 mls/hr Documented by: VANESSA Levofloxacin (Levaquin) 750 mg in 150 mls @ 100 mls/hr IV NOW ONE Stop: 07/01/19 00:53 Last Infusion: 07/01/19 01:13 Dose: 0 mls/hr Documented by: Admin: 06/30/19 23:44 Dose: 100 mls/hr Documented by: VANESSA Morphine Sulfate (Morphine) 4 mg IV NOW ONE Stop: 06/30/19 20:03 Last Admin: 06/30/19 20:59 Dose: 4 mg Documented by: VANESSA Ondansetron HCl (Zofran) 4 mg IV NOW ONE Stop: 06/30/19 20:03 Last Admin: 06/30/19 20:59 Dose: 4 mg Documented by: VANESSA Vital Signs Vital signs: Vital Signs - 8 hr 06/30/19 19:17 Temperature 99.2 F Pulse Rate 70 Respiratory Rate 16 Blood Pressure 153/72 H Pulse Oximetry 96 MDM - Chest Pain Medical Records Data Attestation: I reviewed the patient's medical records. Lab Data Attestation: I reviewed the patient's lab results. Result diagrams: 06/30/19 20:45 06/30/19 20:45 Labs: Lab Results 06/30/19 06/30/19 Range/Units 20:45 20:45 WBC 8.1 (4.5-11.0) X10^3/uL RBC 4.42 L (4.5-5.9) X10^6/uL Hgb 13.6 (13.5-17.5) g/dL Hct 39.9 L (41-53) % MCV 90.3 (80-100) fL MCH 30.8 (26-34) PG MCHC 34.1 (30-36) % RDW 13.5 (11.6-14.8) % Plt Count 165 (150-400) X10^3/uL Neut % (Auto) 76.9 H (50-75) % Lymph % (Auto) 12.1 L (25-40) % [place] % (Auto) 9.6 (3-14) % Eos % (Auto) 0.9 L (2-4) % Baso % (Auto) 0.5 (0-2) % Neut # (Auto) 6200 (7983-3664) /uL Lymph # (Auto) 1000 L (8346-5051) /uL [place] # (Auto) 800 (0-900) /uL Eos # (Auto) 100 (0-450) /uL Baso # (Auto) 0 (0-100) /uL Sodium 139 (137-145) mmol/L Potassium 4.3 (3.4-5.1) mmol/L Chloride 102 (98-107) mmol/L Carbon Dioxide 28 (22-32) mmol/L BUN 17 (9-20) mg/dL Creatinine 0.90 (0.66-1.25) mg/dL Estimated GFR > 60.0 (>60) mL/min BUN/Creatinine Ratio 18.9 (6-22) Glucose 117 H (80-110) mg/dL Calcium 9.3 (8.4-10.2) mg/dL Total Bilirubin 0.3 (0.2-1.3) mg/dL AST 37 (17-59) IU/L ALT 21 (<50) IU/L Alkaline Phosphatase 101 (38-126) U/L Total Creatine Kinase 93 (55-170) U/L CK-MB (CK-2) TNP CK-MB (CK-2) Rel Index TNP Troponin I < 0.012 (0.01-0.034) ng/mL Total Protein 7.7 (6.3-8.2) g/dL Albumin 4.4 (3.5-5.0) g/dL Globulin 3.3 (1.7-4.1) g/dL Albumin/Globulin Ratio 1.3 (1.0-2.8) Lipase 56 (23-300) U/L ABG Data Interpretation: The patient's EKG obtained on June 30 at 20:3 9:45 a.m. revealed a sinus rhythm with a ventricular rate of 66. The p.r.n. interval is 236 milliseconds consistent with 1st degree AV block. There is minimal voltage criteria for left ventricular hypertrophy. The QTC has a normal interval. He has left axis deviation. The patient has no appreciable Q-waves. T-waves are inverted in leads III AVF and V1 which suggest the possibility of inferior wall ischemia. There are no other acute diagnostic ST or T-wave changes. The ST segments are nonspecific. ECG Data Attestation: I personally reviewed and interpreted this ECG as follows: Discharge Plan Departure Patient Disposition: Home Clinical Impression: Atypical chest pain, Painful rib, Abdominal pain, Pneumonia Discharge Date/Time: 07/01/19 01:55 Instructions: DI for Pneumonia -- Adult, DI for Abdominal Pain-Adult, DI for Chest Pain Activity Restrictions/Additional Instructions: Your laboratory tests were normal. Your CT scan of the abdomen did not show any acute pathology. The CT scan of your chest revealed that she have a right lower lobe pneumonia. You need to drink 2-3 L of fluid per day to keep yourself hydrated. Use the Naprosyn for pain and discomfort and for pain on relieved by lying Naprosyn take [place] 09/22/2024 every 4-6 hours. On Tuesday or Tuesday you need to be seen in follow-up by her primary care physician. If you develop worsening pain or discomfort passing-out you need to return to the emergency department. Take the antibiotic Levaquin daily as prescribed. If you develop persistent nausea and vomiting and unable to keep the medications down you need to return to the emergency department. Prescriptions: New naproxen [Naprosyn] 500 mg tablet 500 mg PO BID PRN (Reason: pain) Qty: 20 RF: 0 prochlorperazine maleate [Compazine] 10 mg tablet 10 mg PO Q6H PRN (Reason: nausea and vomiting) Qty: 10 RF: 0 levofloxacin [Levaquin] 500 mg tablet 500 mg PO DAILY Qty: 10 RF: 0 No Action levothyroxine [Synthroid] 25 MCG tablet 25 mcg PO QDAY Qty: 0 RF: 0 rosuvastatin [Crestor] 20 MG tablet 20 mg PO QDAY Qty: 0 RF: 0 omega-3 acid ethyl esters [Lovaza] 1 GM capsule 1 gm PO Qty: 0 RF: 0 vitamin B complex [B Complex-Vitamin B12] 1 EACH tablet 1 tab PO QDAY Qty: 0 RF: 0 pregabalin [Lyrica] 150 MG capsule 150 mg PO SEE INSTRUCTIONS Qty: 14 RF: 0 naratriptan 2.5 mg tablet 2.5 mg PO .COMPLEX PRN (Reason: migraine headache) Qty: 27 RF: 3 pregabalin 200 mg capsule 200 mg PO BID Qty: 60 RF: 0 Lyrica 200 mg capsule 200 mg PO BID Qty: 180 RF: 2 naratriptan 2.5 mg tablet 2.5 mg PO ONCE Qty: 10 RF: 0 indomethacin 25 mg capsule 25 mg PO .see instructions Qty: 27 RF: 0 erenumab-aooe [Aimovig Autoinjector (2 Pack)] 70 mg/mL auto-injector 140 mg SUBCUT QMONTH Qty: 2 RF: 11 tramadol 50 mg tablet 50 mg PO Q6H Qty: 30 RF: 5 tramadol 50 mg tablet 25 mg PO Q6H PRN (Reason: pain) Qty: 50 RF: 0 pregabalin 100 mg capsule 100 mg PO BID Qty: 180 RF: 1 naratriptan 2.5 mg tablet 2.5 mg PO Q4H PRN (Reason: migraine headache) Qty: 60 RF: 1 Referrals: Isha Simmons MD [Primary Care Provider] -
[2019-06-30] MEDS: levoFLOXacin 750 MG/150 ML PIGGYBACK 100 MG IV (23:44)
[2019-07-01 01:55] VITALS: BP 136/69; PULSE 64; RESP 15; O2SAT 94
== END 2019-07-01 01:55 | disposition home or self-care (01) ==
PROVIDERS: Emergency Provider Emergency Medicine; Family Provider Registered Nurse; PCP Internal Medicine
DX: R07.89 Other chest pain (principal); R10.11 Right upper quadrant pain; J18.9 Pneumonia, unspecified organism; R07.82 Intercostal pain
CPT/HCPCS: 36415; 71260; 74160; 80053; 82550; 83690; 84484; 85025; 93005; 96361; 96365; 96375; 99284; 99285; J1956; J2270; J2405; Q9967

== ENCOUNTER → 2019-07-03 14:46 | Outpatient (CLI) | payer MEDICARE, OTHER, SELFPAY ==
--- NOTE | 2019-07-03 | DI.RAD.S_ITS ---
PROCEDURE: XR CHEST 2V INDICATIONS: XR CHEST INFIL NOTED ON IMAGING TECHNIQUE: 2 views of the chest were acquired. COMPARISON: [facility], CT, CT CHEST ABDOMEN W CON, 06/30/2019, 21:38. [facility], CR, XR CHEST 2V, 12/01/2017, 15:17. FINDINGS: Surgical changes and devices: None. Lungs and pleura: There is a focal consolidation involving the right lung base near the right costophrenic angle measuring approximately 3.4 cm in maximum dimension. It is best seen on the frontal view. Remainder of the lungs appear clear. No pleural effusions or pneumothorax. Mediastinum: Mediastinal contours are normal. Heart size is normal. Bones and chest wall: No suspicious bony abnormalities. Soft tissues appear unremarkable. IMPRESSION: Persistent 3.4 cm right lateral lung base consolidation correlating with abnormality seen on recent comparison chest CT dated 06/30/2019. Dictated by: Ralph Lepe M.D. on 07/03/2019 at 17:16 Approved by: Ralph Lepe M.D. on 07/03/2019 at 17:21
== END ==
PROVIDERS: Family Provider Registered Nurse; PCP Internal Medicine; Referring Provider Internal Medicine; Visit Provider Internal Medicine
DX: R91.8 Other nonspecific abnormal finding of lung field (principal)
CPT/HCPCS: 71046

== ENCOUNTER → 2019-08-02 11:31 | Outpatient (CLI) | payer MEDICARE, OTHER, SELFPAY ==
--- NOTE | 2019-08-02 | DI.RAD.S_ITS ---
PROCEDURE: XR CHEST 2V INDICATIONS: INFILTRATE NOTED ON IMAG STUDY TECHNIQUE: 2 views of the chest were acquired. COMPARISON: [facility], CT, CT CHEST ABDOMEN W CON, 06/30/2019, 21:38. [facility], CR, XR CHEST 2V, 07/03/2019, 14:45. FINDINGS: Surgical changes and devices: None. Lungs and pleura: There is a density in the right costophrenic angle, which has decreased but not resolved. Lungs are otherwise clear. No pleural effusions or pneumothorax. There is right hemidiaphragm eventration. Mediastinum: Mediastinal contours are normal. Heart size is normal. Bones and chest wall: No suspicious bony abnormalities. Soft tissues appear unremarkable. IMPRESSION: A density in the right costophrenic angle has decreased but not resolved. Continued followup is suggested. Dictated by: Seema Day M.D. on 08/02/2019 at 13:54 Approved by: Seema Day M.D. on 08/02/2019 at 13:56
== END ==
PROVIDERS: Family Provider Registered Nurse; PCP Internal Medicine; Referring Provider Internal Medicine; Visit Provider Internal Medicine
DX: R93.89 Abnormal findings on diagnostic imaging of other specified body structures
CPT/HCPCS: 71046

== ENCOUNTER → 2019-09-12 14:23 | Outpatient (CLI) | payer MEDICARE, OTHER, SELFPAY ==
--- NOTE | 2019-09-12 | DI.RAD.S_ITS ---
PROCEDURE: XR CHEST 2V INDICATIONS: ABNORMAL CHEST XR TECHNIQUE: 2 views of the chest were acquired. COMPARISON: [facility], CT, CT CHEST ABDOMEN W CON, 06/30/2019, 21:38. [facility], CR, XR CHEST 2V, 07/03/2019, 14:45. [facility], CR, XR CHEST 2V, 08/02/2019, 12:03 FINDINGS: Surgical changes and devices: None. Lungs and pleura: The previously seen right lateral costophrenic angle nodularity is no longer seen on these images. An incomplete inspiratory result is noted, causing a crowded appearance to the lung markings. No focal infiltrates are seen. No pneumothorax or significant pleural effusions are seen. Mediastinum: The cardiac contours are within normal limits. The aorta demonstrates calcification and tortuosity. Bones and chest wall: No suspicious bony abnormalities. Age-appropriate bony degenerative changes are seen. Soft tissues appear unremarkable. IMPRESSION: Limited chest study demonstrating no significant abnormality. The previously seen right lateral costophrenic angle is no longer seen by plain film. Dictated by: Brent Brian M.D. on 09/12/2019 at 14:11 Approved by: Brent Brian M.D. on 09/12/2019 at 14:12
[2019-09-12 15:54] LABS: Add Manual Diff / Slide Review NO; Alanine Aminotransferase 20 IU/L (<50); Albumin 4.5 g/dL (3.5-5.0); Albumin Globulin Ratio 1.5 (1.0-2.8); Alkaline Phosphatase 66 U/L (38-126); Aspartate Aminotransferase 36 IU/L (17-59); BUN Creatinine Ratio 15.9 (6-22); Basophils Absolute Auto 0 /uL (0-100); Basophils Percent Auto 0.2 % (0-2); Bilirubin Total 0.6 mg/dL (0.2-1.3); Blood Urea Nitrogen 13 mg/dL (9-20); Calcium 9.4 mg/dL (8.4-10.2); Carbon Dioxide 25 mmol/L (22-32); Chloride 104 mmol/L (98-107); Cholesterol 165 mg/dL (140-199); Eosinophils Absolute Auto 100 /uL (0-450); Eosinophils Percent Auto 1.6 % (2-4); Estimated Glomerular Filt Rate > 60.0 mL/min (>60); Glucose 90 mg/dL (80-110); HDL Cholesterol 42 mg/dL (40-60); HEMOLYSIS < 15 (0-50); Hematocrit 40.5 % (41-53); Hemoglobin 13.6 g/dL (13.5-17.5); LDL Cholesterol Calculated 89 mg/dL (<100); Lymphocytes Absolute Auto 1100 /uL (1100-4500); Lymphocytes Percent Auto 27.9 % (25-40); Mean Corpuscular HGB Conc 33.6 % (30-36); Mean Corpuscular Hemoglobin 30.6 PG (26-34); Monocytes Absolute Auto 400 /uL (0-900); Monocytes Percent Auto 9.6 % (3-14); Neutrophils Absolute Auto 2400 /uL (1500-7000); Neutrophils Percent Auto 60.7 % (50-75); Platelet Count 125 X10^3/uL (150-400); Potassium 4.5 mmol/L (3.4-5.1); Red Blood Cell Count 4.46 X10^6/uL (4.5-5.9); Red Cell Distribution Width 15.4 % (11.6-14.8); Sodium 139 mmol/L (137-145); Total Protein 7.5 g/dL (6.3-8.2); Triglycerides 169 mg/dL (35-150)
[2019-09-12 16:10] LABS: Free T4, Direct Thyroxine 0.96 ng/dL (0.78-2.19)
[2019-09-12 16:24] LABS: Thyroid Stimulating Hormone 2.34 uIU/mL (0.47-4.68)
[2019-09-13 07:06] LABS: Triiodothyronine T3 Total 94 ng/dL (71-180)
== END ==
PROVIDERS: Family Provider Registered Nurse; PCP Internal Medicine; Referring Provider Internal Medicine; Visit Provider Internal Medicine
DX: R93.89 Abnormal findings on diagnostic imaging of other specified body structures (principal); G89.4 Chronic pain syndrome; E78.5 Hyperlipidemia, unspecified; E03.9 Hypothyroidism, unspecified
CPT/HCPCS: 36415; 71046; 80053; 80061; 84439; 84443; 84480; 85025

== ENCOUNTER → 2019-10-08 13:14 | Outpatient (CLI) | payer MEDICARE, OTHER, SELFPAY ==
[2019-10-08 15:00] LABS: Hematocrit 40.9 % (41-53); Hemoglobin 13.7 g/dL (13.5-17.5); Mean Corpuscular HGB Conc 33.4 % (30-36); Mean Corpuscular Hemoglobin 30.7 PG (26-34); Platelet Count 124 X10^3/uL (150-400); Red Blood Cell Count 4.45 X10^6/uL (4.5-5.9); Red Cell Distribution Width 15.1 % (11.6-14.8); White Blood Cell Count 4.1 X10^3/uL (4.5-11.0)
[2019-10-08 15:07] LABS: Add Manual Diff / Slide Review YES
[2019-10-08 15:35] LABS: Neutrophils Absolute Manual 3075 /uL (3000-5900); Total Cells Counted 100
[2019-10-08 15:39] LABS: RBC Morphology Normal Morphology
== END ==
PROVIDERS: Family Provider Registered Nurse; PCP Internal Medicine; Referring Provider Internal Medicine; Visit Provider Internal Medicine
DX: D61.818 Other pancytopenia (principal); R07.9 Chest pain, unspecified
CPT/HCPCS: 36415; 85025

== ENCOUNTER → 2020-06-13 17:23 | Outpatient (CLI) | payer MEDICARE, OTHER, SELFPAY ==
--- NOTE | 2020-06-13 17:26 | DI.RAD.S_ITS ---
PROCEDURE: XR SHOULDER RT MIN 2V INDICATIONS: RIGHT SHOULDER PAIN TECHNIQUE: 3 views of the shoulder were acquired. COMPARISON: None. FINDINGS: Bones: No fractures or dislocations. Deficiency of the distal clavicle may either be postsurgical or may potentially represent acro-osteolysis. There is glenohumeral joint degenerative change. No suspicious bony lesions. Visualized ribs appear intact. Soft tissues: No suspicious soft tissue calcifications. IMPRESSION: Glenohumeral joint degenerative change. No evidence acute bony abnormality of the right shoulder. If clinical suspicion and/or symptoms persist, further assessment with repeat plain films, or advanced imaging (e.g., CT, MRI, or bone scan) may be helpful for further assessment. Dictated by: Tyree Chappell M.D. on 06/13/2020 at 18:01 Approved by: Tyree Chappell M.D. on 06/13/2020 at 18:02
== END ==
PROVIDERS: Family Provider Registered Nurse; PCP Student in an Organized Health Care Education/Training Program; Referring Provider Student in an Organized Health Care Education/Training Program; Visit Provider Student in an Organized Health Care Education/Training Program
DX: M25.511 Pain in right shoulder (principal)
CPT/HCPCS: 73030

== ENCOUNTER 2020-06-19 19:01 | Inpatient (IN) | payer MEDICARE, OTHER, SELFPAY ==
[2020-06-19] VITALS (14 sets, daily range): BP systolic 102–157; BP diastolic 62–84; PULSE 66–88; RESP 15; TEMP 37.6–38.1; O2SAT 88–96; BMI 26.1
--- NOTE | 2020-06-19 19:18 | ED.SEPSIS ---
HPI - Sepsis General Chief Complaint: Shortness of Breath/Dyspnea Mode of arrival: Ambulatory Source: patient and family Limitations: no limitations Evaluation Sepsis Infection Criteria Present: Suspected New Infection Associated Symptoms: fever, chills, cough and shortness of breath Context: recent surgery/procedure Narrative: 75-year-old male nonsmoker with history of coronary artery disease and GERD as well as hypothyroidism presents with his in the chief complaint of fever, productive cough and shortness of breath over the course of the day. Yesterday he was discharged from [facility] after having an anterior cervical fusion. His symptoms worsened over the day. He denies any trouble swallowing or increased drainage from surgical dressing. He's had cough productive of yellowish sputum. He's had fever as high as 102. He admits to chills. He denies nausea, vomiting or diarrhea. He denies any current shortness of breath but it is noted that his pulse ox on room air is as low as 80% as high as 92%. He denies any chest pain. He is not dizzy nor weak or lightheaded. He denies any syncope. He denies exposure to persons known to have COVID. Review of Systems Constitutional Constitutional: Reports body ache(s), Reports chills, Denies fatigue, Reports fever(s), Denies frequent falls, Denies lethargy and Denies weakness Eyes Eyes: Denies change in vision, Denies eye discharge, Denies irritation and Denies loss of vision ENT Ears, Nose, Mouth, and Throat: Denies change in voice, Denies dizziness, Denies neck pain, Denies sore throat and Denies throat swelling Cardiovascular Cardiovascular: Denies chest pain, Denies irregular heart rhythm, Denies lightheadedness, Denies palpitations, Reports dyspnea, Denies dyspnea on exertion and Denies orthopnea Respiratory Respiratory: Reports cough, Reports excessive phlegm production, Reports dyspnea, Denies dyspnea on exertion and Denies wheezing Gastrointestinal Gastrointestinal: Denies abdominal pain, Denies change in bowel habits, Denies diarrhea, Denies nausea and Denies vomiting Musculoskeletal Musculoskeletal: Denies neck pain and Denies numbness Integumentary/Breasts Skin/Breast: Denies pruritus, Denies erythema, Denies rash and Denies wounds Neurologic Neurologic: Denies behavioral changes, Denies confusion, Denies dizziness, Denies frequent falls, Denies loss of vision, Denies numbness and Denies weakness Psychiatric Psychiatric: Denies anxiety, Denies behavioral changes, Denies confusion, Denies depression, Denies homicidal ideation and Denies suicidal ideation Endocrine Endocrine: Denies fatigue, Denies flushing and Denies palpitations Hematologic/Lymphatic Hematologic/Lymphatic: Denies easy bruising Allergic/Immunologic Allergic/Immunologic: Denies urticaria, Denies throat swelling and Denies wheezing Patient History Medical History (Updated 06/20/20 @ 02:39 by SUGRA Moura-) Chronic migraine without aura, with status migrainosus Fibromyalgia GERD (gastroesophageal reflux disease) Hemicrania continua Hypothyroidism (acquired) Surgical History (Updated 06/20/20 @ 02:39 by SUGAR Moura-VONNIE) History of carpal tunnel surgery History of fusion of cervical spine History of fusion of cervical spine History of heart artery stent History of hernia repair History of laminectomy History of lumbar fusion S/P TURP (status post transurethral resection of prostate) Family History (Updated 06/20/20 @ 02:40 by SUGAR Moura-VONNIE) Father CAD (coronary artery disease) Mother Congestive heart failure Sister Cancer Social History household members: spouse Smoking Status: Never smoker Smoking Status: Never smoker alcohol intake frequency: 0-2 drinks per day Substance Use Type: does not use Exam Narrative Exam Narrative: GENERAL: [75] year old patient appears stated age. Well-nourished, well-developed patient, in mild distress. No obvious significant work of breathing, room air pulse ox noted 88% HEAD: Atraumatic. Normocephalic. EYES: Pupils equal round and reactive. Extraocular motions intact. No scleral icterus. No injection or drainage. ENT: Nose without bleeding, purulent drainage. Throat without erythema, tonsillar hypertrophy or exudate. Airway patent. NECK: Trachea midline. Non tender. Patient in [place] collar. Anterior dressing inspected, however not removed. No significant drainage. CARDIOVASCULAR: Regular rate and rhythm without murmurs, gallops, or rubs. RESPIRATORY: Crackles noted in right base GASTROINTESTINAL: Abdomen soft, non-tender, nondistended. EXTREMITIES: No edema or joint tenderness. BACK: Nontender without deformity or crepitance. No flank tenderness. NEURO: AOx3. SKIN: No rash or erythema of visible areas Initial Vital Signs Initial Vital Signs: Vital Signs Temperature 100.5 F H 06/19/20 19:10 Pulse Rate 88 06/19/20 19:10 Respiratory Rate 15 06/19/20 19:10 Blood Pressure 154/69 H 06/19/20 19:10 Pulse Oximetry 92 06/19/20 19:10 Course Orders Ordered: ED Orders 06/19/20 19:15 COVID19 Stat 06/19/20 19:20 XR chest 1V Stat C-Reactive Protein Quant Stat Complete Blood Count AUTO DIFF Stat Comprehensive Metabolic Panel Stat D Dimer Stat Lactate (Lactic Acid) Stat NT-proBNP (BNP-Adult 18+) Stat Procalcitonin Stat Troponin & CK Cardiac Panel Stat 06/19/20 19:40 Blood Culture Stat 06/19/20 19:46 Arterial Blood Gas Stat Acetaminophen (Acetaminophen 325 Mg Tablet) 650 mg PO Q6HR PRN PRN Reason: Fever/Mild Pain (1-3) Hydrocodone Bitart/Acetaminophen (Hydrocodone/Acet 10/325 Tablet) 1 tab PO Q4HR PRN PRN Reason: Pain, Moderate (4-6) Al Hydrox/Mg Hydrox/Simethicone (Mag Hydrox/Alum/Simeth 30 Ml Udc) 30 ml PO Q6HR PRN PRN Reason: Dyspepsia Docusate Sodium (Docusate 100 Mg Capsule) 100 mg PO BID PRN PRN Reason: Constipation Sodium Chloride (Normal Saline 0.9%) 500 mls @ 60 mls/hr IV CONT [facility] Levothyroxine Sodium (Levothyroxine 25 Mcg Tablet) 25 mcg PO 0600 [facility] Last Admin: 06/20/20 00:13 Dose: Not Given Documented by: ISAAC Methocarbamol (Methocarbamol 500 Mg Tablet) 500 mg PO TID PRN PRN Reason: Muscle Spasm Naloxone HCl (Naloxone 0.4 Mg/Ml Vial) 0.2 mg IV Q2MIN PRN PRN Reason: Opiate Reversal Non-Formulary Medication (Alfuzosin) 10 mg PO DAILY [facility] Non-Formulary Medication (Naratriptan) 2.5 mg PO PRN PRN PRN Reason: migraine headache Ondansetron HCl (Ondansetron 4 Mg Odt) 4 mg PO Q8HR PRN PRN Reason: Nausea And Vomiting Pantoprazole Sodium (Pantoprazole 20 Mg Tablet) 20 mg PO 0600 [facility] Pregabalin (Pregabalin 50 Mg Capsule) 200 mg PO BID [facility] Rosuvastatin Calcium (Rosuvastatin 10 Mg Tablet) 20 mg PO BEDTIME [facility] Last Admin: 06/20/20 00:14 Dose: Not Given Documented by: ISAAC Sennosides (Sennosides 8.6 Mg Tablet) 17.2 mg PO BEDTIME PRN PRN Reason: Constipation Discontinued Medications Enoxaparin Sodium (Enoxaparin 40 Mg/0.4 Ml Syringe) 40 mg SUBCUT DAILY [facility] Sodium Chloride (Normal Saline 0.9%) 1,000 mls @ 1,000 mls/hr IV BOLUS ONE Stop: 06/19/20 20:17 Last Infusion: 06/19/20 20:57 Dose: 0 mls/hr Documented by: Admin: 06/19/20 19:43 Dose: 1,000 mls/hr Documented by: SUN Clindamycin Phosphate (Cleocin) 600 mg in 50 mls @ 50 mls/hr IV NOW ONE Stop: 06/19/20 21:33 Last Infusion: 06/19/20 22:19 Dose: 0 mls/hr Documented by: Admin: 06/19/20 21:00 Dose: 50 mls/hr Documented by: SUN Piperacillin/Tazobactam/Dextrose (Zosyn) 4.5 gm in 100 mls @ 200 mls/hr IV Q6H [facility] Levofloxacin (Levofloxacin 250 Mg Tablet) 750 mg PO DAILY [facility] Non-Formulary Medication (Naratriptan) 2.5 mg PO .COMPLEX PRN PRN Reason: migraine headache Non-Formulary Medication (Omeprazole) 10 mg PO DAILY [facility] Vital Signs Vital signs: Vital Signs - 8 hr 06/19/20 20:00 06/19/20 20:30 06/19/20 21:00 Pulse Rate 77 78 85 Blood Pressure 147/77 H 151/73 H 144/70 H Pulse Oximetry 91 92 90 L 06/19/20 21:24 06/19/20 21:30 06/19/20 22:00 Pulse Rate 75 76 Blood Pressure 135/66 130/62 Pulse Oximetry 92 95 96 MDM - Sepsis Lab Data Result diagrams: 06/19/20 19:20 06/19/20 19:20 Labs: Lab Results 06/19/20 06/19/20 06/19/20 Range/Units 19:15 19:20 19:20 WBC 7.2 (4.5-11.0) X10^3/uL RBC 4.39 L (4.5-5.9) X10^6/uL Hgb 13.5 (13.5-17.5) g/dL Hct 41.1 (41-53) % MCV 93.7 (80-100) fL MCH 30.7 (26-34) PG MCHC 32.7 (30-36) % RDW 13.8 (11.6-14.8) % Plt Count 105 L (150-400) X10^3/uL Neut % (Auto) 83.7 H (50-75) % Lymph % (Auto) 9.5 L (25-40) % [place] % (Auto) 6.0 (3-14) % Eos % (Auto) 0.5 L (2-4) % Baso % (Auto) 0.3 (0-2) % Neut # (Auto) 6000 (5772-3789) /uL Lymph # (Auto) 700 L (9796-2467) /uL [place] # (Auto) 400 (0-900) /uL Eos # (Auto) 0 (0-450) /uL Baso # (Auto) 0 (0-100) /uL D-Dimer (<230) ng/mL ABG pH (7.35-7.45) ABG pCO2 (35-45) mmHg ABG pO2 (80-100) mmHg ABG HCO3 (22-26) mmol/L ABG Total CO2 (21-31) mmol/L ABG O2 Saturation (95-100) % ABG Base Excess (-2-2) mmol/L FiO2 Sodium 135 L (137-145) mmol/L Potassium 4.1 (3.4-5.1) mmol/L Chloride 101 (98-107) mmol/L Carbon Dioxide 32 (22-32) mmol/L BUN 23 H (9-20) mg/dL Creatinine 0.86 (0.66-1.25) mg/dL Estimated GFR > 60.0 (>60) mL/min BUN/Creatinine Ratio 26.7 H (6-22) Glucose 116 H (80-110) mg/dL Lactate (0.7-2.1) mmol/L Calcium 9.2 (8.4-10.2) mg/dL Total Bilirubin 0.8 (0.2-1.3) mg/dL AST 35 (17-59) IU/L ALT 20 (<50) IU/L Alkaline Phosphatase 62 (38-126) U/L Total Creatine Kinase 222 H (55-170) U/L CK-MB (CK-2) 2.76 H (<2.37) ng/mL CK-MB (CK-2) Rel Index 1.2 L (1.5-5.0) % Troponin I < 0.012 (0.01-0.034) ng/mL C-Reactive Protein 3.5 H (<1.0) mg/dL NT-Pro-B Natriuret Pep 780 H (<450) pg/mL Total Protein 7.0 (6.3-8.2) g/dL Albumin 4.4 (3.5-5.0) g/dL Globulin 2.6 (1.7-4.1) g/dL Albumin/Globulin Ratio 1.7 (1.0-2.8) Procalcitonin (<0.5) ng/mL SARS-CoV-2 (PCR) Negative (Negative) 06/19/20 06/19/20 06/19/20 Range/Units 19:20 19:20 19:20 WBC (4.5-11.0) X10^3/uL RBC (4.5-5.9) X10^6/uL Hgb (13.5-17.5) g/dL Hct (41-53) % MCV (80-100) fL MCH (26-34) PG MCHC (30-36) % RDW (11.6-14.8) % Plt Count (150-400) X10^3/uL Neut % (Auto) (50-75) % Lymph % (Auto) (25-40) % [place] % (Auto) (3-14) % Eos % (Auto) (2-4) % Baso % (Auto) (0-2) % Neut # (Auto) (0848-0012) /uL Lymph # (Auto) (9208-2089) /uL [place] # (Auto) (0-900) /uL Eos # (Auto) (0-450) /uL Baso # (Auto) (0-100) /uL D-Dimer 1976 H (<230) ng/mL ABG pH (7.35-7.45) ABG pCO2 (35-45) mmHg ABG pO2 (80-100) mmHg ABG HCO3 (22-26) mmol/L ABG Total CO2 (21-31) mmol/L ABG O2 Saturation (95-100) % ABG Base Excess (-2-2) mmol/L FiO2 Sodium (137-145) mmol/L Potassium (3.4-5.1) mmol/L Chloride (98-107) mmol/L Carbon Dioxide (22-32) mmol/L BUN (9-20) mg/dL Creatinine (0.66-1.25) mg/dL Estimated GFR (>60) mL/min BUN/Creatinine Ratio (6-22) Glucose (80-110) mg/dL Lactate 1.4 (0.7-2.1) mmol/L Calcium (8.4-10.2) mg/dL Total Bilirubin (0.2-1.3) mg/dL AST (17-59) IU/L ALT (<50) IU/L Alkaline Phosphatase (38-126) U/L Total Creatine Kinase (55-170) U/L CK-MB (CK-2) (<2.37) ng/mL CK-MB (CK-2) Rel Index (1.5-5.0) % Troponin I (0.01-0.034) ng/mL C-Reactive Protein (<1.0) mg/dL NT-Pro-B Natriuret Pep (<450) pg/mL Total Protein (6.3-8.2) g/dL Albumin (3.5-5.0) g/dL Globulin (1.7-4.1) g/dL Albumin/Globulin Ratio (1.0-2.8) Procalcitonin < 0.05 (<0.5) ng/mL SARS-CoV-2 (PCR) (Negative) 06/19/20 06/19/20 Range/Units 19:46 21:00 WBC (4.5-11.0) X10^3/uL RBC (4.5-5.9) X10^6/uL Hgb (13.5-17.5) g/dL Hct (41-53) % MCV (80-100) fL MCH (26-34) PG MCHC (30-36) % RDW (11.6-14.8) % Plt Count (150-400) X10^3/uL Neut % (Auto) (50-75) % Lymph % (Auto) (25-40) % [place] % (Auto) (3-14) % Eos % (Auto) (2-4) % Baso % (Auto) (0-2) % Neut # (Auto) (4802-1044) /uL Lymph # (Auto) (5901-5855) /uL [place] # (Auto) (0-900) /uL Eos # (Auto) (0-450) /uL Baso # (Auto) (0-100) /uL D-Dimer (<230) ng/mL ABG pH 7.44 (7.35-7.45) ABG pCO2 39.0 (35-45) mmHg ABG pO2 62 L (80-100) mmHg ABG HCO3 27 H (22-26) mmol/L ABG Total CO2 28 (21-31) mmol/L ABG O2 Saturation 92 L (95-100) % ABG Base Excess 2.0 (-2-2) mmol/L FiO2 21 Sodium (137-145) mmol/L Potassium (3.4-5.1) mmol/L Chloride (98-107) mmol/L Carbon Dioxide (22-32) mmol/L BUN (9-20) mg/dL Creatinine (0.66-1.25) mg/dL Estimated GFR (>60) mL/min BUN/Creatinine Ratio (6-22) Glucose (80-110) mg/dL Lactate (0.7-2.1) mmol/L Calcium (8.4-10.2) mg/dL Total Bilirubin (0.2-1.3) mg/dL AST (17-59) IU/L ALT (<50) IU/L Alkaline Phosphatase (38-126) U/L Total Creatine Kinase (55-170) U/L CK-MB (CK-2) (<2.37) ng/mL CK-MB (CK-2) Rel Index (1.5-5.0) % Troponin I (0.01-0.034) ng/mL C-Reactive Protein (<1.0) mg/dL NT-Pro-B Natriuret Pep Cancelled (<450) pg/mL Total Protein (6.3-8.2) g/dL Albumin (3.5-5.0) g/dL Globulin (1.7-4.1) g/dL Albumin/Globulin Ratio (1.0-2.8) Procalcitonin (<0.5) ng/mL SARS-CoV-2 (PCR) (Negative) Urine Dip Bedside Urine Glucose Negative Bedside Urine Bilirubin - Negative Bedside Urine Ketone - Negative Urine Specific [place] 1.025 Bedside Urine Occult Blood - Negative Bedside Urine pH 6.0 Bedside Urine Protein - Negative Bedside Urine Urobilinogen - Negative Bedside Urine Nitrite - Negative Bedside Urine Leukocytes - Negative Esterase Imaging Data Chest x-ray: Radiologist's Impression: [address] [id number] ReportSigned Patient: Alfredo Hightower AMR#: [id number]: [id number]/Sex: 75 / MDate of Service: 06/19/20Loc: EDAccession Number: [id number] Procedure: XR chest 1V Ordering Provider: Skinny Bishop D.O. PROCEDURE: XR CHEST 1V INDICATIONS: fever, chills, cough, SOB TECHNIQUE: One view of the chest was acquired. COMPARISON: [facility], CT, CT CHEST ABDOMEN W CON, 06/30/2019, 21:38. [facility], CR, XR CHEST 2V, 09/12/2019, 14:40. [facility], CR, XR CHEST 2V, 08/02/2019, 12:03. FINDINGS: Surgical changes and devices: None. Lungs and pleura: Minimal opacity at the right lung base. No pleural effusions or pneumothorax. Mediastinum: Mediastinal contours appear normal. Heart size is normal. Bones and chest wall: No suspicious bony lesions. Overlying soft tissues appear unremarkable. IMPRESSION: Minimal airspace opacity at the right lung base. This could represent infectious/inflammatory etiology or atelectasis. Dictated by: Jorje Brunner M.D. on 06/19/2020 at 19:38 MDM Narrative Medical decision making narrative: Patient with fever, chills, hypoxemia, crackles on exam, CXR notes RLL infiltrate. Normal lactate, no significant elevated WBC or procalcitionin. ABG notes PO2 62 on RA. PE considered unlikely due to lack of pleuritic pain, improved oxygenation with pulseox and only 2 days post op. However, DDimer ordered given lack of WBC or procalcitonin and was quite elevated, therefore CT ordered which notes no PE, only RLL pneumonia Discharge Plan Departure Patient Disposition: Admitted As Inpatient Clinical Impression: Acute hypoxemic respiratory failure Right lower lobe pneumonia Qualifiers: Pneumonia type: due to unspecified organism Qualified Code(s): J18.9 - Pneumonia, unspecified organism Admit Date/Time: 06/19/20 22:04 Admit Provider: Dahlia Louis
[2020-06-19 19:36] LABS: Add Manual Diff / Slide Review NO; Basophils Absolute Auto 0 /uL (0-100); Basophils Percent Auto 0.3 % (0-2); Eosinophils Absolute Auto 0 /uL (0-450); Eosinophils Percent Auto 0.5 % (2-4); Hematocrit 41.1 % (41-53); Hemoglobin 13.5 g/dL (13.5-17.5); Lymphocytes Absolute Auto 700 /uL (1100-4500); Lymphocytes Percent Auto 9.5 % (25-40); Mean Corpuscular HGB Conc 32.7 % (30-36); Mean Corpuscular Hemoglobin 30.7 PG (26-34); Mean Corpuscular Volume 93.7 fL (80-100); Monocytes Absolute Auto 400 /uL (0-900); Neutrophils Absolute Auto 6000 /uL (1500-7000); Neutrophils Percent Auto 83.7 % (50-75); Platelet Count 105 X10^3/uL (150-400); Red Blood Cell Count 4.39 X10^6/uL (4.5-5.9); Red Cell Distribution Width 13.8 % (11.6-14.8); White Blood Cell Count 7.2 X10^3/uL (4.5-11.0)
[2020-06-19 19:38] LABS: COVID19 -Nasal RAPID Negative (Negative)
[2020-06-19] MEDS: SODIUM CHLORIDE 0.9% 1,000 ML 1000 ML IV (19:43)
[2020-06-19 19:55] LABS: Lactate (Lactic Acid) 1.4 mmol/L (0.7-2.1)
[2020-06-19 19:56] LABS: Alanine Aminotransferase 20 IU/L (<50); Bilirubin Total 0.8 mg/dL (0.2-1.3); Blood Urea Nitrogen 23 mg/dL (9-20); Calcium 9.2 mg/dL (8.4-10.2); Carbon Dioxide 32 mmol/L (22-32); Glucose 116 mg/dL (80-110); HEMOLYSIS < 15 (0-50); Sodium 135 mmol/L (137-145)
[2020-06-19 19:58] LABS: Albumin 4.4 g/dL (3.5-5.0); Albumin Globulin Ratio 1.7 (1.0-2.8); Alkaline Phosphatase 62 U/L (38-126); Aspartate Aminotransferase 35 IU/L (17-59); BUN Creatinine Ratio 26.7 (6-22); C-Reactive Protein Quant 3.5 mg/dL (<1.0); Chloride 101 mmol/L (98-107); Creatine Kinase 222 U/L (55-170); Estimated Glomerular Filt Rate > 60.0 mL/min (>60); Globulin 2.6 g/dL (1.7-4.1); Potassium 4.1 mmol/L (3.4-5.1)
[2020-06-19 20:03] LABS: pH ABG 7.44 (7.35-7.45)
[2020-06-19 20:04] LABS: HCO3 ABG 27 mmol/L (22-26); Oxygen Saturation ABG 92 % (95-100); PO2 ABG 62 mmHg (80-100); TCO2 ABG 28 mmol/L (21-31)
[2020-06-19 20:05] LABS: Fractionated Inspired Oxygen 21
[2020-06-19 20:08] LABS: NT-proBNP (BNP-Adult 18+) 780 pg/mL (<450); Troponin I < 0.012 ng/mL (0.01-0.034)
[2020-06-19 20:11] LABS: CKMB % Relative Index 1.2 % (1.5-5.0); Creatine Kinase MB 2.76 ng/mL (<2.37)
[2020-06-19 20:35] LABS: Procalcitonin < 0.05 ng/mL (<0.5)
[2020-06-19] MEDS: CLINDAMYCIN 600 MG/50 ML PIGGYBACK 50 MG IV (21:00)
[2020-06-19 22:13] LABS: D Dimer 1976 ng/mL (<230)
--- NOTE | 2020-06-19 22:37 | DI.CT.S_ITS ---
PROCEDURE: CT ANGIO CHEST PE PROTOCOL INDICATIONS: critical dimer, hypoxia, recent surgery TECHNIQUE: After the administration of intravenous contrast, 2 mm thick sections acquired from the pulmonary apices to the posterior costophrenic angles. 3-dimensional maximum intensity projection (MIP) coronal and sagittal reformats were then acquired through the thorax. For radiation dose reduction, the following was used: automated exposure control, adjustment of mA and/or kV according to patient size. COMPARISON: [facility], CR, XR CHEST 1V, 06/19/2020, 19:30. [facility], CR, XR CHEST 2V, 07/03/2019, 14:45. [facility], CT, CT CHEST ABDOMEN W CON, 06/30/2019, 21:38. FINDINGS: Image quality: Excellent. Pulmonary arteries: Pulmonary arteries are normal in size, and demonstrate no intraluminal filling defects to suggest central pulmonary embolism. Lungs and pleura: Right middle lobe, right lower lobe and lingula airspace infiltrates consistent with pneumonia. There is a pneumatocele cyst in the right upper lobe. No pleural effusions or pneumothorax. Central and peripheral airways are patent. Mediastinum: Heart size is normal, without pericardial effusion. Moderate coronary artery calcifications. There is a 1.3 x 1.5 cm subcarinal lymph node. A 1.5 cm right hilar lymph node is identified. Thoracic aorta is normal in caliber and enhancement. Esophagus is normal in caliber. Small hiatal hernia. Bones and chest wall: No suspicious bony lesions. Ribs and thoracic spine appear intact throughout. Thyroid gland is normal. No axillary or supraclavicular adenopathy. Abdomen: Visualized upper abdominal solid organs appear normal in the early arterial phase of enhancement. IMPRESSION: 1. No evidence for pulmonary embolism. 2. Right middle lobe, right lower lobe and lingula pneumonia. 3. Mild mediastinal and right hilar lymphadenopathy, most likely reactive. 4. A pneumatocele or cyst in the right upper lobe. No significant discrepancy with the night auditor radiology preliminary report. Dictated by: Seema Day M.D. on 06/20/2020 at 7:24 Approved by: Seema Day M.D. on 06/20/2020 at 7:32
[2020-06-20] VITALS (13 sets, daily range): BP systolic 111–170; BP diastolic 58–82; PULSE 50–86; RESP 14–18; TEMP 36.1–37.4; O2SAT 94–98
--- NOTE | 2020-06-20 00:08 | PC.NURSE ---
Pt transported up to inpatient unit by RN; handoff given to Valerie HAM. Pts went up with patient; patients belongings are with family/patient.
--- NOTE | 2020-06-20 01:40 | PC.NURSE ---
Addendum entered by Keren Caputo R.N. 06/20/20 06:59: Notified provider of BNP and Troponin trending upwards. Cardiac telemetry initiated per verbal order. Addendum entered by Keren Caputo R.N. 06/20/20 05:16: Provider notified of failed swallow screen. Instructed to hold AM meds until BUSINESS BANKING REPRESENTATIVE does swallow eval. Addendum entered by Keren Caputo R.N. 06/20/20 04:47: Swallow screen done. Initially when given pain medicine at 0120, the patient showed no evidence of aspiration post swallowing. During swallow screen, he coughed after swallowing water but apple sauce was soothing to him and did not cause any coughing. It seems patient might need thickened liquids. BUSINESS BANKING REPRESENTATIVE swallow eval ordered. Original Note: 0000 Pt arrives to the unit, transferred from ED, via portable bed. Transferred [id number] to unit bed. He is alert and oriented x4, on 2LPM via NC. C/O migraine 8/10 pain. states she gave him a [place] 10-325mg tablet at 2100; the patient has this medication from post-op cervical fusion, discharged from [facility] 06/18/20. He has a right forearm PIV that is saline locked. Pt denies SOB, dizziness or lightheadedness, denies chest pain. Allowed to walk to toilet via stand-by assist, denies dyspnea on exertion. Pt oriented to unit and call-light. No s/sx of distress. 0120 Re-assessed pain, rates 7/10 migraine. COBY Xavier, OK'd 1 tablet of his home Newton medication that had not been verified by pharmacy yet. 1 tablet administered. 0130 Home Newton prescription bottle with #63 tablets turn into night pharmacy for verification.
--- NOTE | 2020-06-20 02:36 | PM.HP.1 ---
History of Present Illness History of Present Illness Date Patient Seen: 06/19/20 Time Patient Seen: 22:40 Chief complaint: thinks pneumonia,cough,chills,fever Narrative: The patient is 75-year-old male Alfredo Hightower who is a nonsmoker with history of coronary artery disease (stents x 5 (2014)), Chronic migraines, GERD, hypothyroidism, fibromyalgia, presents with his in the chief complaint of fever, productive cough and shortness of breath over the course of the day. Yesterday he was discharged from [facility] after having an anterior cervical fusion C-5/C-6, A previous history of fusion C3-C5 25 years ago. His symptoms worsened over the day. Upon admit He complains slight difficulty swallowing liquids and clearing secretions from airway, denies increased drainage from surgical dressing. He's notes an occasional cough with green sputum. He's had fever as high as 102. He admits to chills that have since resolved He denies nausea, vomiting or diarrhea. He denies any current shortness of breath but it is noted that his pulse ox on room air is as low as 80% as high as 92% in the ER. He denies any chest pain. He is not dizzy nor weak or lightheaded. He denies any syncope. He denies exposure to persons known to have COVID. Patient's presenting labs BP 157/84, HR 77, RR 15, temp 100.5?, SaO2 92% on 2L/N/C, ABGs: PO2 62, bicarb 27, O2 sat 92%, CRP 3.5, proBNP 780, CK-MB 2.76, negative troponin, D-dimer 1975, Patient with fever, chills, hypoxemia, crackles on exam, CXR notes RLL infiltrate. Normal lactate, no significant elevated WBC or procalcitionin. ABG notes PO2 62 on RA. PE considered unlikely due to lack of pleuritic pain, improved oxygenation with pulse ox and only 2 days post op. However, DDimer ordered given lack of WBC or procalcitonin and was quite elevated, therefore CTA ordered which notes no PE, only RLL pneumonia. Due to patient's recent cervical surgery, history of aspiration pneumonia, recent hospitalization and antibiotic use patient is at risk for respiratory failure/bacterial pneumonia. Patient History Medical History (Updated 06/20/20 @ 02:39 by JAMIE Moura) Chronic migraine without aura, with status migrainosus Fibromyalgia GERD (gastroesophageal reflux disease) Hemicrania continua Hypothyroidism (acquired) Surgical History (Updated 06/20/20 @ 02:39 by JAMIE Moura) History of carpal tunnel surgery History of fusion of cervical spine History of fusion of cervical spine History of heart artery stent History of hernia repair History of laminectomy History of lumbar fusion S/P TURP (status post transurethral resection of prostate) Family & Social History Family History (Updated 06/20/20 @ 02:40 by JAMIE Moura) Father CAD (coronary artery disease) Mother Congestive heart failure Sister Cancer Social History: household members spouse Prior Living Arrangements House Safety & Behavioral: Feels Safe in Current Yes Environment Been Physically Hurt or No Threatened By a Person Suicidal Ideation Description None Suicide Plan Description No Plan Tobacco & Substance use: Smoking Status Never smoker alcohol intake frequency 0-2 drinks per day Substance Use Type does not use Meds Home Medications and Allergies Home Medications Medication Instructions Recorded Confirmed Type levothyroxine [Synthroid] 25 mcg PO QDAY #0 01/21/17 06/19/20 History rosuvastatin [Crestor] 20 mg PO QDAY #0 01/21/17 06/19/20 History naratriptan 2.5 mg tablet 2.5 mg PO .COMPLEX PRN #27 tab 06/19/18 06/19/20 Rx pregabalin 200 mg capsule 200 mg PO BID #180 cap 06/28/18 06/19/20 Rx tramadol 50 mg tablet 25 mg PO Q6H PRN #50 tab 05/24/19 06/19/20 Rx alfuzosin 10 mg PO DAILY 06/19/20 06/19/20 History methocarbamol 500 mg PO TID PRN 06/19/20 06/19/20 History omeprazole 10 mg PO DAILY 06/19/20 06/19/20 History hydrocodone-acetaminophen 1 tab PO Q4-6H PRN 06/20/20 06/20/20 History Allergies Allergy/AdvReac Type Severity Reaction Status Date / Time clopidogrel [From Plavix] Allergy Verified 06/19/20 19:18 Review of Systems Review of Systems ROS: Yes All systems reviewed with the patient and are negative except as otherwise documented Constitutional Constitutional: Reports system reviewed and no additional complaints, except as documented and Reports headache(s) Eyes Eyes: Reports system reviewed and no additional complaints, except as documented ENT Ears, Nose, Mouth, and Throat: Yes system reviewed and no additional complaints, except as documented, Yes headache(s), Yes nasal congestion, Yes nasal discharge, Yes neck pain and Yes post nasal drip Comments: Difficulty clearing secretions from airway and swallowing due to surgical procedure. Cardiovascular Cardiovascular: Reports system reviewed and no additional complaints, except as documented Respiratory Respiratory: Reports cough (Occasional) and Reports pain with cough (Mild occasional discomfort) Gastrointestinal Gastrointestinal: Reports system reviewed and no additional complaints, except as documented and Reports constipation Genitourinary Genitourinary: Reports system reviewed and no additional complaints, except as documented Musculoskeletal Musculoskeletal: Reports system reviewed and no additional complaints, except as documented and Reports neck pain Integumentary/Breasts Skin/Breast: Reports system reviewed and no additional complaints, except as documented Neurologic Neurologic: Reports system reviewed and no additional complaints, except as documented and Reports headache(s) Psychiatric Psychiatric: Reports system reviewed and no additional complaints, except as documented Endocrine Endocrine: Reports system reviewed and no additional complaints, except as documented Hematologic/Lymphatic Hematologic/Lymphatic: Reports system reviewed and no additional complaints, except as documented Allergic/Immunologic Allergic/Immunologic: Reports system reviewed and no additional complaints, except as documented Exam Vital Signs (past 8 hours): - 06/19/20 19:10 06/19/20 19:14 06/19/20 19:15 Temperature 100.5 F H Pulse Rate 88 86 Respiratory Rate 15 Blood Pressure 154/69 H 154/69 H Pulse Oximetry 92 89 L 91 06/19/20 19:30 06/19/20 20:00 06/19/20 20:30 Temperature Pulse Rate 77 77 78 Respiratory Rate Blood Pressure 157/84 H 147/77 H 151/73 H Pulse Oximetry 92 91 92 06/19/20 21:00 06/19/20 21:24 06/19/20 21:30 Temperature Pulse Rate 85 75 Respiratory Rate Blood Pressure 144/70 H 135/66 Pulse Oximetry 90 L 92 95 06/19/20 22:00 06/19/20 22:30 06/19/20 23:00 Temperature Pulse Rate 76 84 71 Respiratory Rate Blood Pressure 130/62 102/62 118/63 Pulse Oximetry 96 90 L 91 06/19/20 23:22 06/19/20 23:30 06/20/20 00:10 Temperature 99.7 F H 99.4 F Pulse Rate 66 65 Respiratory Rate 18 Blood Pressure 124/63 128/65 Pulse Oximetry 95 96 Oxygen Delivery Method Nasal Cannula Oxygen Flow Rate 2 Narrative Exam Narrative: General: Patient is a well-developed, well-nourished male in no distress at this time. Pt is able to speak & communicate in complete sentences. HEENT: Normocephalic, atraumatic, extraocular muscles intact, oral pharynx is clear and mucous membranes are moist. Neck is supple and symmetric, trachea is midline, anterior dressing in place from C5-C6 fusion not removed, clean dry and intact surrounding and no drainage noted patient has [place] collar in place, no adenopathy, no thyroid enlargement, nontender, no masses or JVD observed. Chest: Normal AP diameter and contour without kyphoscoliosis, no nasal flaring, retractions, or tachypneic labored Lungs: Auscultation of all lung garcia, breathing is slightly shallow, noted crackles in right base. Cardio: S1 & S2 with regular rate and rhythm without murmur, rubs, or gallops, no carotid bruit, no cardiac pulsations present. Abdomen: Soft nontender, negative for organomegaly, or masses. Bowel sounds are present in all 4 quadrants without guarding or rebound, no CVA tenderness. Musculoskeletal: Muscle strength and tone are equal within normal limits, no deformity, crepitus, effusions, cyanosis, clubbing or edema present. Full range of motion intact radial and pedal pulses are normal. Skin: Warm dry and intact without rashes, ulcerations or petechiae. Neuro: Alert and orientated x3, strength is +5/5 in all extremities, sensation to touch intact, no gross deficits noted of cranial nerves. Psych: Patient has a well-kept appearance, appropriate affect, mental status attitude thought context and judgment are appropriate for age. Objective Labs Result Diagrams: 06/19/20 19:20 06/19/20 19:20 Labs: Laboratory Results - last 24 hr 06/19/20 06/19/20 06/19/20 19:15 19:20 19:20 WBC 7.2 RBC 4.39 L Hgb 13.5 Hct 41.1 MCV 93.7 MCH 30.7 MCHC 32.7 RDW 13.8 Plt Count 105 L Neut % (Auto) 83.7 H Lymph % (Auto) 9.5 L Webster % (Auto) 6.0 Eos % (Auto) 0.5 L Baso % (Auto) 0.3 Neut # (Auto) 6000 Lymph # (Auto) 700 L Webster # (Auto) 400 Eos # (Auto) 0 Baso # (Auto) 0 D-Dimer ABG pH ABG pCO2 ABG pO2 ABG HCO3 ABG Total CO2 ABG O2 Saturation ABG Base Excess FiO2 Sodium 135 L Potassium 4.1 Chloride 101 Carbon Dioxide 32 BUN 23 H Creatinine 0.86 Estimated GFR > 60.0 BUN/Creatinine Ratio 26.7 H Glucose 116 H Lactate Calcium 9.2 Total Bilirubin 0.8 AST 35 ALT 20 Alkaline Phosphatase 62 Total Creatine Kinase 222 H CK-MB (CK-2) 2.76 H CK-MB (CK-2) Rel Index 1.2 L Troponin I < 0.012 C-Reactive Protein 3.5 H NT-Pro-B Natriuret Pep 780 H Total Protein 7.0 Albumin 4.4 Globulin 2.6 Albumin/Globulin Ratio 1.7 Procalcitonin SARS-CoV-2 (PCR) Negative 06/19/20 06/19/20 06/19/20 19:20 19:20 19:20 WBC RBC Hgb Hct MCV MCH MCHC RDW Plt Count Neut % (Auto) Lymph % (Auto) Webster % (Auto) Eos % (Auto) Baso % (Auto) Neut # (Auto) Lymph # (Auto) Webster # (Auto) Eos # (Auto) Baso # (Auto) D-Dimer 1976 H ABG pH ABG pCO2 ABG pO2 ABG HCO3 ABG Total CO2 ABG O2 Saturation ABG Base Excess FiO2 Sodium Potassium Chloride Carbon Dioxide BUN Creatinine Estimated GFR BUN/Creatinine Ratio Glucose Lactate 1.4 Calcium Total Bilirubin AST ALT Alkaline Phosphatase Total Creatine Kinase CK-MB (CK-2) CK-MB (CK-2) Rel Index Troponin I C-Reactive Protein NT-Pro-B Natriuret Pep Total Protein Albumin Globulin Albumin/Globulin Ratio Procalcitonin < 0.05 SARS-CoV-2 (PCR) 06/19/20 06/19/20 19:46 21:00 WBC RBC Hgb Hct MCV MCH MCHC RDW Plt Count Neut % (Auto) Lymph % (Auto) Webster % (Auto) Eos % (Auto) Baso % (Auto) Neut # (Auto) Lymph # (Auto) Webster # (Auto) Eos # (Auto) Baso # (Auto) D-Dimer ABG pH 7.44 ABG pCO2 39.0 ABG pO2 62 L ABG HCO3 27 H ABG Total CO2 28 ABG O2 Saturation 92 L ABG Base Excess 2.0 FiO2 21 Sodium Potassium Chloride Carbon Dioxide BUN Creatinine Estimated GFR BUN/Creatinine Ratio Glucose Lactate Calcium Total Bilirubin AST ALT Alkaline Phosphatase Total Creatine Kinase CK-MB (CK-2) CK-MB (CK-2) Rel Index Troponin I C-Reactive Protein NT-Pro-B Natriuret Pep Cancelled Total Protein Albumin Globulin Albumin/Globulin Ratio Procalcitonin SARS-CoV-2 (PCR) Assessment & Plan Assessment & Plan narrative: This patient requires acute care inpatient hospital management for right lower lobe pneumonia post C5/C6 fusion on 06/17/2020. Patient with fever, chills, hypoxemia, crackles on exam, CXR notes RLL infiltrate. Normal lactate, no significant elevated WBC or procalcitionin. ABG notes PO2 62 on RA. PE considered unlikely due to lack of pleuritic pain, improved oxygenation with pulse ox and only 2 days post op. However, DDimer ordered given lack of WBC or procalcitonin and was quite elevated, therefore CTA ordered which notes no PE, only RLL pneumonia. Due to patient's recent cervical surgery, history of aspiration pneumonia, recent hospitalization and antibiotic use patient is at risk for respiratory failure/bacterial pneumonia. 1. Acute right lower lobe pneumonia, acute, stable compensated, present on admission -rule out acute hypoxic respiratory failure (hypercapnia), consider aspiration pneumonia(anterior cervical C5-6 surgery and history of aspiration pneumonia), hospital-acquired pneumonia(due to recent hospitalization and antibiotic use) verses community acquired, Bacterial pneumonia less likely due to Negative procalcitonin. Consider post surgery over-sedation, rare muscle weakness due to hyperthyroidism, possibility of cord injury from surgery. Possible secondary to congestive heart failure-proBNP 780, will repeat in am. Patient had elevated D-dimer 1975-likely elevated due to post surgical, but recent hospitalization does put patient at risk for PE, will do serial D-dimer and observe trend to determine if he needs further workup for PE, while monitoring patient. - BP 157/84, HR 77, RR 15, temp 100.5?, SaO2 92% on 2L/N/C, ABGs: PO2 62, bicarb 27, O2 sat 92%, CRP 3.5, proBNP 780, CK-MB 2.76, negative troponin, D-dimer 1975. initial SOFA Score- 2, curb 65 initial score- urea ordered to calculate -recommend PFTs ordered -patient to be monitored on [facility], vital signs q.4 hours,O2 sat 92% on 2 L nasal cannula(maintain O2 sat greater than 92%) intake and output monitored Q/Shift with a goal of urinary output greater than or equal to 50 cc/hr, weight measure daily, diet: NPO with ice chips pending rule out of aspiration pneumonia. Bedside swallow screen in the morning, swallow results and labs will determine advancement of patient's diet. -IV fluid: Initial Normal saline bolus in ER, patient now on NS gentle rehydration 60 cc/hour - pt to be monitored for fluid overload in the presence of pneumonia and ability to take oral fluids. -if patient develops distress will implement oral prednisone daily and DuoNebs as needed q.4 hours as needed with respiratory consult - in ER, patient was given clindamycin, after reviewing current flow charts for pneumonias that would require MRSA and/or Pseudomonas coverage consulted with and based on the patient's recent antibiotic use of Keflex, decided to hold any further antibiotic treatment at this time continue to monitor patient and wait for culture results, ordered respiratory panel. cultures pending. -labs ordered: CMP CBC, Mag,D-Dimer, Ketones, CKMB, thrombin time, troponin, proBNP, CRP, blood cultures and sputum cultures pending. -consults ordered physical therapy, occupational therapy, respiratory consult. -prevention vaccine-seasonal flu, shingles, pneumonia, COVID-19 when available. 2. Postop cervical spine fusion C5-C6 (06/17/2020) acute, stable, present on admission -patient's dressing is clean dry and intact without noted drainage, no noted erythema inflammation or pain surrounding dressing, patient to continue [place] collar in place. 3. Chronic migraines, acute on chronic, present on admission -continue patient's naproxen 4. Hypothyroidism, acquired, control unknown, present on admission -continue patient's levothyroxine, TSH with reflex T4 ordered 5. Fibromyalgia, acute on chronic, present on admission Continue patient's pregabalin, methocarbamol, Cymbalta 6. GERD, chronic, stable, not present on admission -continue patient's omeprazole 7. CAD(stent placement x5 2013), chronic, stability unknown, not present on admission -continue patient's Crestor Code status: Full Surrogate/plan of care: Spouse Denise Hightower COVID PCR: Negative VTE prophylaxis: Contraindicated due to cervical spine surgery 06/17/2020, SCDs Scores GCS [place] coma scale eye opening: Spontaneous [place] coma scale verbal response: Orientated [place] coma scale motor response: Obey commands [place] coma scale total score: 15 SOFA PaO2/FIO2: < 400 mmHg Platelets: < 150 Bilirubin: < 1.2 mg/dL Hypotension: MAP >= 70 mmHg [place] Coma Scale: 15 Renal: < 1.2 mg/dL SOFA Score: 2 Wells' Criteria for PE Clinical signs and symptoms of DVT: No PE is #1 Dx or equally likely: No Heart rate > 100: No Immobilization at least 3 days or surg in previous 4 weeks: Yes History of PE or DVT: No Hemoptysis: No Malignancy w/Treatment within 6 months or palliative: No Wells' PE Score total: 1.5
[2020-06-20 02:41] LABS: Adenovirus Not Detected (Not Detect); Coronavirus 229E Not Detected (Not Detect); Coronavirus HKU1 Not Detected (Not Detect); Coronavirus NL 63 Not Detected (Not Detect); Coronavirus OC43 Not Detected (Not Detect); Human Metapneumovirus Not Detected (Not Detect); Human Rhinovirus/Enterovirus Not Detected (Not Detect); Influenza A Not Detected (Not Detect); Influenza B Not Detected (Not Detect); Parainfluenza Virus 1 Not Detected (Not Detect); Parainfluenza Virus 2 Not Detected (Not Detect); SARS- CoV-2 Not Detected (Not Detecte)
[2020-06-20 02:42] LABS: Bordetella pertussis Not Detected (Not Detect); Chlamydophila pneumoniae Not Detected (Not Detect); Mycoplasma pneumoniae Not Detected (Not Detect); Parainfluenza Virus 3 Not Detected (Not Detect); Parainfluenza Virus 4 Not Detected (Not Detect); Respiratory Syncytial Virus Not Detected (Not Detect)
[2020-06-20] MEDS: SODIUM CHLORIDE 0.9% 500 ML 60 ML IV (03:53)
[2020-06-20] MEDS: methocarbamoL 500 MG TABLET PO (04:39)
[2020-06-20] MEDS: ACETAMINOPHEN 325 MG TABLET 650 MG PO (04:40)
[2020-06-20 06:03] LABS: Add Manual Diff / Slide Review NO; Basophils Absolute Auto 0 /uL (0-100); Basophils Percent Auto 0.2 % (0-2); Eosinophils Absolute Auto 100 /uL (0-450); Hemoglobin 12.3 g/dL (13.5-17.5); Lymphocytes Absolute Auto 800 /uL (1100-4500); Lymphocytes Percent Auto 10.8 % (25-40); Mean Corpuscular HGB Conc 33.3 % (30-36); Mean Corpuscular Hemoglobin 31.2 PG (26-34); Mean Corpuscular Volume 93.7 fL (80-100); Monocytes Absolute Auto 500 /uL (0-900); Monocytes Percent Auto 7.6 % (3-14); Neutrophils Absolute Auto 5800 /uL (1500-7000); Neutrophils Percent Auto 80.4 % (50-75); Platelet Count 99 X10^3/uL (150-400); Red Blood Cell Count 3.95 X10^6/uL (4.5-5.9); Red Cell Distribution Width 13.6 % (11.6-14.8); White Blood Cell Count 7.2 X10^3/uL (4.5-11.0)
[2020-06-20 06:08] LABS: Alanine Aminotransferase 16 IU/L (<50); Albumin 3.6 g/dL (3.5-5.0); Albumin Globulin Ratio 1.4 (1.0-2.8); Alkaline Phosphatase 53 U/L (38-126); Aspartate Aminotransferase 30 IU/L (17-59); BUN Creatinine Ratio 26.5 (6-22); Blood Urea Nitrogen 18 mg/dL (9-20); Calcium 8.3 mg/dL (8.4-10.2); Carbon Dioxide 30 mmol/L (22-32); Chloride 103 mmol/L (98-107); Estimated Glomerular Filt Rate > 60.0 mL/min (>60); Globulin 2.6 g/dL (1.7-4.1); Glucose 101 mg/dL (80-110); HEMOLYSIS < 15 (0-50); INR 1.1 (0.9-1.3); Prothrombin Time 12.5 SECONDS (10.1-12.7); Sodium 135 mmol/L (137-145); Total Protein 6.2 g/dL (6.3-8.2)
[2020-06-20 06:09] LABS: Creatine Kinase 166 U/L (55-170)
[2020-06-20 06:17] LABS: NT-proBNP (BNP-Adult 18+) 878 pg/mL (<450)
[2020-06-20 06:18] LABS: D Dimer 1853 ng/mL (<230)
[2020-06-20 06:20] LABS: Troponin I 0.016 ng/mL (0.01-0.034)
[2020-06-20 06:24] LABS: CKMB % Relative Index 0.9 % (1.5-5.0); Creatine Kinase MB 1.48 ng/mL (<2.37)
[2020-06-20 06:34] LABS: TSH w/ Reflex to FT4 1.62 uIU/mL (0.47-4.68)
--- NOTE | 2020-06-20 08:30 | OT.IPNOTE ---
Chart reviewed and nursing consulted. Pt states that he is at his baseline and nursing agrees that pt is at or near his baseline. Pt states that he understands his cervical precautions and was educated on all needs after his sx prior to discharge from that facility. No further OT needs.
--- NOTE | 2020-06-20 09:38 | DI.RAD.S_ITS ---
PROCEDURE: FL BARIUM SWALLOW W SPEECH INDICATIONS: dysphagia COMPARISON: TECHNIQUE: Examination was conducted in conjunction with speech pathology per standard protocol. In the lateral projection, filming was performed of the patient swallowing. AP projection filming may also be performed with patient swallowing. COMPARISON: [facility], CT, CT ANGIO CHEST PE PROTOCOL, 06/19/2020, 22:43. FINDINGS: The patient was examined under fluoroscopy on the lateral projection with different consistencies by medial taping. There is mild laryngeal penetration and aspiration, most severe on thin barium suspension. IMPRESSION: There intra penetration and aspiration. Please see speech pathologist's report for detail. Dictated by: Seema Day M.D. on 06/20/2020 at 13:23 Approved by: Seema Day M.D. on 06/20/2020 at 13:24
--- NOTE | 2020-06-20 10:22 | SLP.IPNOTE ---
Order received for swallowing evaluation. Pt recently (06/17/20) had ACDF surgery and had been experiencing difficulty swallowing. He has a medical hx of ACDF 25 years ago after which he also experienced some dysphagia. he has had MBSS and swallow therapy in the past. After discussing the above, an MBSS is recommended. Scheduled for today at 1130.
--- NOTE | 2020-06-20 10:54 | PT-IP ANOTE ---
checked on pt and found pt standing independently without AD. pt with recent ACDF and went home but developed PNA and admitted in the hospital. pt refused PT. stated that he does not need it and feels stable when moving around. NAC confirmed that pt is independent. Pt requested to d/c PT. informed Dr. Webber and agreed.
[2020-06-20] MEDS: BISACODYL 10 MG SUPP PR (12:40)
[2020-06-20] MEDS: HYDROMORPHONE 1 MG INJ IV ×2 (12:40→21:42)
[2020-06-20] MEDS: DEXTROSE 5%-0.45% NS 1,000 ML 60 ML IV (12:54)
--- NOTE | 2020-06-20 14:05 | PM.PN.1 ---
Subjective Subjective Date Patient Seen: 06/20/20 Time Patient Seen: 13:15 Interval history: Alfredo Hightower is a 75 year old [place] who is a nonsmoker with history of coronary artery disease (stents x 5 (2014)), Chronic migraines, GERD, hypothyroidism, fibromyalgia who was admitted with aspiration pneumonia following a C5/6 anterior fusion earlier this week in [place]. He was seen by speech therapy today and is currently NPO. He denies complaints of shortness of breath, dyspnea on exertion today. No chest pain, palpitations, nausea, vomiting. Patient underwent barium swallow which revealed dara aspiration and poor bolus control. Honey thick liquids were attempted which were not aspirated but there was significant pooling in the vallecula and piriform sinuses, vocal folds, and posterior pharyngeal wall, with delayed penetration. Significant cough during each swallow occurred. ENT was then contacted to possibly perform an examination via endoscopy, however provider traffic control officer, Dr. Redmond, stated he was unavailable today for this procedure. He recommended outpatient follow up and NG tube placement if desired, clinic called back to state that he could be seen as an outpatient today. Called and discussed with patient's neurosurgeon, Dr. Esteves with [facility] in [place], who stated that this was likely due to swelling as the patient's vocal cords were working fine postoperatively. He recommended steroids at this time to see if there is improvement while awaiting further examination. Exam Vital Signs (past 8 hours): - 06/20/20 06:23 06/20/20 08:00 06/20/20 09:00 Temperature 97.0 F L Pulse Rate 86 Respiratory Rate 17 Blood Pressure 111/58 L Pulse Oximetry 94 96 98 06/20/20 09:02 06/20/20 12:53 Temperature 98.1 F Pulse Rate 57 L 62 Respiratory Rate 14 16 Blood Pressure 144/77 H Pulse Oximetry 95 94 Oxygen Delivery Method Room Air Oxygen Flow Rate 0 Narrative Exam Narrative: General: Patient is a well-developed, well-nourished male in no distress at this time. Pt is able to speak & communicate in complete sentences. HEENT: Normocephalic, atraumatic, extraocular muscles intact, oral pharynx is clear and mucous membranes are moist. C-collar in place, anterior dressing appears c/d/i. Chest: Normal AP diameter and contour without kyphoscoliosis, no nasal flaring, retractions, or tachypneic labored Lungs: Clear to auscultation bilaterally with no wheezing, rhonchi, or rales. Cardio: S1 & S2 with regular rate and rhythm without murmur, rubs, or gallops. Abdomen: Soft nontender, negative for organomegaly, or masses. Bowel sounds are present in all 4 quadrants without guarding or rebound, no CVA tenderness. Musculoskeletal: Muscle strength and tone are equal within normal limits, no deformity, cyanosis, clubbing or edema present. Skin: Warm dry and intact without rashes, ulcerations or petechiae. Neuro: Alert and orientated x3, strength is +5/5 in all extremities, sensation to touch intact, no gross deficits noted of cranial nerves. Psych: Patient has a well-kept appearance, appropriate affect, mental status attitude thought context and judgment are appropriate for age. Objective Labs Result Diagrams: 06/20/20 05:15 06/20/20 05:15 Labs: Laboratory Results - last 24 hr 06/19/20 06/19/20 06/19/20 19:15 19:20 19:20 WBC 7.2 RBC 4.39 L Hgb 13.5 Hct 41.1 MCV 93.7 MCH 30.7 MCHC 32.7 RDW 13.8 Plt Count 105 L Neut % (Auto) 83.7 H Lymph % (Auto) 9.5 L [place] % (Auto) 6.0 Eos % (Auto) 0.5 L Baso % (Auto) 0.3 Neut # (Auto) 6000 Lymph # (Auto) 700 L [place] # (Auto) 400 Eos # (Auto) 0 Baso # (Auto) 0 PT INR D-Dimer ABG pH ABG pCO2 ABG pO2 ABG HCO3 ABG Total CO2 ABG O2 Saturation ABG Base Excess FiO2 Sodium 135 L Potassium 4.1 Chloride 101 Carbon Dioxide 32 BUN 23 H Creatinine 0.86 Estimated GFR > 60.0 BUN/Creatinine Ratio 26.7 H Glucose 116 H Lactate Calcium 9.2 Magnesium Total Bilirubin 0.8 AST 35 ALT 20 Alkaline Phosphatase 62 Total Creatine Kinase 222 H CK-MB (CK-2) 2.76 H CK-MB (CK-2) Rel Index 1.2 L Troponin I < 0.012 C-Reactive Protein 3.5 H NT-Pro-B Natriuret Pep 780 H Total Protein 7.0 Albumin 4.4 Globulin 2.6 Albumin/Globulin Ratio 1.7 Procalcitonin TSH Chlamy pneumoniae PCR Adenovirus (PCR) B.parapertussis DNA PCR Coronavirus OC43 (PCR) Coronavirus HKU1 (PCR) Coronavirus 229E (PCR) SARS-CoV-2 (PCR) Negative Coronavirus NL63 (PCR) Human Metapneumovir PCR Influenza Type A (PCR) Influenza Type B (PCR) M. pneumoniae (PCR) Parainfluenza 1 (PCR) Parainfluenza 2 (PCR) Parainfluenza 3 (PCR) Parainfluenza 4 (PCR) RSV (PCR) Entero/Rhino (PCR) 06/19/20 06/19/20 06/19/20 19:20 19:20 19:20 WBC RBC Hgb Hct MCV MCH MCHC RDW Plt Count Neut % (Auto) Lymph % (Auto) [place] % (Auto) Eos % (Auto) Baso % (Auto) Neut # (Auto) Lymph # (Auto) [place] # (Auto) Eos # (Auto) Baso # (Auto) PT INR D-Dimer 1976 H ABG pH ABG pCO2 ABG pO2 ABG HCO3 ABG Total CO2 ABG O2 Saturation ABG Base Excess FiO2 Sodium Potassium Chloride Carbon Dioxide BUN Creatinine Estimated GFR BUN/Creatinine Ratio Glucose Lactate 1.4 Calcium Magnesium Total Bilirubin AST ALT Alkaline Phosphatase Total Creatine Kinase CK-MB (CK-2) CK-MB (CK-2) Rel Index Troponin I C-Reactive Protein NT-Pro-B Natriuret Pep Total Protein Albumin Globulin Albumin/Globulin Ratio Procalcitonin < 0.05 TSH Chlamy pneumoniae PCR Adenovirus (PCR) B.parapertussis DNA PCR Coronavirus OC43 (PCR) Coronavirus HKU1 (PCR) Coronavirus 229E (PCR) SARS-CoV-2 (PCR) Coronavirus NL63 (PCR) Human Metapneumovir PCR Influenza Type A (PCR) Influenza Type B (PCR) M. pneumoniae (PCR) Parainfluenza 1 (PCR) Parainfluenza 2 (PCR) Parainfluenza 3 (PCR) Parainfluenza 4 (PCR) RSV (PCR) Entero/Rhino (PCR) 06/19/20 06/19/20 06/20/20 19:46 21:00 01:00 WBC RBC Hgb Hct MCV MCH MCHC RDW Plt Count Neut % (Auto) Lymph % (Auto) [place] % (Auto) Eos % (Auto) Baso % (Auto) Neut # (Auto) Lymph # (Auto) [place] # (Auto) Eos # (Auto) Baso # (Auto) PT INR D-Dimer ABG pH 7.44 ABG pCO2 39.0 ABG pO2 62 L ABG HCO3 27 H ABG Total CO2 28 ABG O2 Saturation 92 L ABG Base Excess 2.0 FiO2 21 Sodium Potassium Chloride Carbon Dioxide BUN Creatinine Estimated GFR BUN/Creatinine Ratio Glucose Lactate Calcium Magnesium Total Bilirubin AST ALT Alkaline Phosphatase Total Creatine Kinase CK-MB (CK-2) CK-MB (CK-2) Rel Index Troponin I C-Reactive Protein NT-Pro-B Natriuret Pep Cancelled Total Protein Albumin Globulin Albumin/Globulin Ratio Procalcitonin TSH Chlamy pneumoniae PCR Not detected Adenovirus (PCR) Not detected B.parapertussis DNA PCR Not detected Coronavirus OC43 (PCR) Not detected Coronavirus HKU1 (PCR) Not detected Coronavirus 229E (PCR) Not detected SARS-CoV-2 (PCR) Not detected Coronavirus NL63 (PCR) Not detected Human Metapneumovir PCR Not detected Influenza Type A (PCR) Not detected Influenza Type B (PCR) Not detected M. pneumoniae (PCR) Not detected Parainfluenza 1 (PCR) Not detected Parainfluenza 2 (PCR) Not detected Parainfluenza 3 (PCR) Not detected Parainfluenza 4 (PCR) Not detected RSV (PCR) Not detected Entero/Rhino (PCR) Not detected 06/20/20 06/20/20 06/20/20 05:15 05:15 05:15 WBC 7.2 RBC 3.95 L Hgb 12.3 L Hct 37.0 L MCV 93.7 MCH 31.2 MCHC 33.3 RDW 13.6 Plt Count 99 L Neut % (Auto) 80.4 H Lymph % (Auto) 10.8 L [place] % (Auto) 7.6 Eos % (Auto) 1.0 L Baso % (Auto) 0.2 Neut # (Auto) 5800 Lymph # (Auto) 800 L [place] # (Auto) 500 Eos # (Auto) 100 Baso # (Auto) 0 PT 12.5 INR 1.1 D-Dimer 1853 H ABG pH ABG pCO2 ABG pO2 ABG HCO3 ABG Total CO2 ABG O2 Saturation ABG Base Excess FiO2 Sodium Potassium Chloride Carbon Dioxide BUN Creatinine Estimated GFR BUN/Creatinine Ratio Glucose Lactate Calcium Magnesium Total Bilirubin AST ALT Alkaline Phosphatase Total Creatine Kinase 166 CK-MB (CK-2) 1.48 D CK-MB (CK-2) Rel Index 0.9 L Troponin I 0.016 C-Reactive Protein NT-Pro-B Natriuret Pep Total Protein Albumin Globulin Albumin/Globulin Ratio Procalcitonin TSH Chlamy pneumoniae PCR Adenovirus (PCR) B.parapertussis DNA PCR Coronavirus OC43 (PCR) Coronavirus HKU1 (PCR) Coronavirus 229E (PCR) SARS-CoV-2 (PCR) Coronavirus NL63 (PCR) Human Metapneumovir PCR Influenza Type A (PCR) Influenza Type B (PCR) M. pneumoniae (PCR) Parainfluenza 1 (PCR) Parainfluenza 2 (PCR) Parainfluenza 3 (PCR) Parainfluenza 4 (PCR) RSV (PCR) Entero/Rhino (PCR) 06/20/20 06/20/20 06/20/20 05:15 05:15 05:15 WBC RBC Hgb Hct MCV MCH MCHC RDW Plt Count Neut % (Auto) Lymph % (Auto) [place] % (Auto) Eos % (Auto) Baso % (Auto) Neut # (Auto) Lymph # (Auto) [place] # (Auto) Eos # (Auto) Baso # (Auto) PT INR D-Dimer ABG pH ABG pCO2 ABG pO2 ABG HCO3 ABG Total CO2 ABG O2 Saturation ABG Base Excess FiO2 Sodium 135 L Potassium 4.0 Chloride 103 Carbon Dioxide 30 BUN 18 Creatinine 0.68 Estimated GFR > 60.0 BUN/Creatinine Ratio 26.5 H Glucose 101 Lactate Calcium 8.3 L Magnesium 2.0 Total Bilirubin 1.0 AST 30 ALT 16 Alkaline Phosphatase 53 Total Creatine Kinase CK-MB (CK-2) CK-MB (CK-2) Rel Index Troponin I C-Reactive Protein 7.0 H NT-Pro-B Natriuret Pep 878 H Total Protein 6.2 L Albumin 3.6 Globulin 2.6 Albumin/Globulin Ratio 1.4 Procalcitonin TSH 1.62 Chlamy pneumoniae PCR Adenovirus (PCR) B.parapertussis DNA PCR Coronavirus OC43 (PCR) Coronavirus HKU1 (PCR) Coronavirus 229E (PCR) SARS-CoV-2 (PCR) Coronavirus NL63 (PCR) Human Metapneumovir PCR Influenza Type A (PCR) Influenza Type B (PCR) M. pneumoniae (PCR) Parainfluenza 1 (PCR) Parainfluenza 2 (PCR) Parainfluenza 3 (PCR) Parainfluenza 4 (PCR) RSV (PCR) Entero/Rhino (PCR) [facility] Medical History (Updated 06/20/20 @ 02:[address] [facility]) Chronic migraine without aura, with status migrainosus Fibromyalgia GERD (gastroesophageal reflux disease) Hemicrania continua Hypothyroidism (acquired) Surgical History (Updated 06/20/20 @ 02:[address] [facility]) History of carpal tunnel surgery History of fusion of cervical spine History of fusion of cervical spine History of heart artery stent History of hernia repair History of laminectomy History of lumbar fusion S/P TURP (status post transurethral resection of prostate) Family History (Updated 06/20/20 @ 02:[address] [facility]) Father CAD (coronary artery disease) Mother Congestive heart failure Sister Cancer Social History household members: spouse Smoking Status: Never smoker Assessment & Plan Assessment & Plan narrative: Alfredo Hightower is a 75 year old [place] who is a nonsmoker with history of coronary artery disease (stents x 5 (2014)), Chronic migraines, GERD, hypothyroidism, fibromyalgia who was admitted with aspiration pneumonia following a C5/6 anterior fusion earlier this week in [place]. 1. Acute right lower lobe pneumonia secondary to aspiration, acute, present on admission - patient with recent C5-C6 anterior fusion on 06/17, according to his neurosurgeon in [place] patient's vocal cords were functional postoperatively and was swallowing upon discharge. If surgically related would be due most likely to swelling. Recommended trial of steroids with 10 mg decadron and 4 mg q6hr after. - speech therapy and MBS on 06/20 showing dara aspiration, and delayed penetration with even honey thick liquids. Recommended NPO and follow up over the weekend after steroids given. - ENT unavailable for endoscopy evaluation 06/20, Dr. Redmond, stated he may be available over the weekend if desired. Patient elected to await ENT evaluation here, rather than transfer to another facility for evaluation. - started on zosyn given initial hypoxemia and temperature elevation to 100.5 and RLL PNA on imaging. Low threshold to discontinue. 2. Acute hypoxemic respiratory failure, resolved, present on admission - likely secondary to aspiration. treatment as noted above. Respiratory panel negative for infectious etiologies. CTA negative for PE. 3. Postop cervical spine fusion C5-C6 (06/17/2020) acute, stable, present on admission -patient's dressing is clean dry and intact without noted drainage, no noted erythema inflammation or pain surrounding dressing, patient to continue Retsof collar in place. 4. Chronic migraines, acute on chronic, present on admission -continue patient's naproxen 5. Hypothyroidism, acquired, control unknown, present on admission -continue patient's levothyroxine, TSH unremarkable. 6. Fibromyalgia, acute on chronic, present on admission -pain control for now with IV dilaudid given NPO status 7. GERD, chronic, stable, not present on admission -continue PPI, replace with IV 8. CAD(stent placement x5 2013), chronic, stability unknown, not present on admission -continue patient's Crestor once tolerating PO Code status: Full Surrogate/plan of care: Spouse Denise Hightower MARLENE PCR: Negative VTE prophylaxis: SCDs, patient ambulatory Dispo: inpatient status
[2020-06-20] MEDS: DEXAMETHASONE 10 MG/ML VIAL IV (14:11)
[2020-06-20] MEDS: PIPERACILLIN-TAZO 3.375 GM/50 ML FROZ.PIGGY IV ×2 (14:18→19:01)
--- NOTE | 2020-06-20 14:24 | ST.SWALLOW ---
Visit Care Team Role Provider Type Lashae Holt PA-C Primary Care Provider Physician Specialty: Internal Medicine Address: [address] [place] [address], [address] Email: [email or web address] memorial hospital COBY Peralta Family Provider Non-Staff Specialty: Naturopathy Address: [address] [place] [address], [id number] Email: Skinny Bishop DO Emergency Provider Physician Referring Provider Specialty: Emergency Medicine Address: [address] [place] [address], [address] Email: [email or web address] LIZZ [facility]raSUMMIT [facility]IFIC [facility] Admit Provider Physician Attending Provider Specialty: Medical Address: [address] [place] [address], [address] Email: Modified Barium Swallow Study GUIDE WINDER Modified Barium Swallow Study Start: 06/20/20 13:54 Freq: Status: Active Protocol: Document 06/20/20 13:55 LNK (Rec: 06/20/20 14:24 LNK [id number]) Modified Barium Swallow Study Total Time Visit Start Time 11:30 Visit Stop Time 12:00 Total Visit Minutes [address] Webber Reason for Referral dysphagia Setting Setting Acute Care Patient Information Identification Type Name,ID Wristband Patient History The patient is 75-year-old male who is a nonsmoker with history of coronary artery disease (stents x 5 (2014)), Chronic migraines, GERD, hypothyroidism, fibromyalgia, presents with his in the chief complaint of fever, productive cough and shortness of breath over the course of the day. He was discharged from [place] after having an anterior cervical fusion C-5/ C-6 (06/17/20). A previous history of fusion C3-C5 25 years ago. His symptoms worsened over the day. Upon admit He complains slight difficulty swallowing liquids and clearing secretions from airway. pt reports he has had MBSS and swallow therapy in the past. After discussing the above, an MBSS is recommended. Subjective Observations Pt was seated in the fluoroscopy chair. Instructions and procedures were discussed with the pt who agreed to proceed. Patient Positioning Position View Lat-A/P Imaging Lateral View Textures Administered Trials Presented Thin Liquid via Spoon,[place] Liquid via Spoon,Honey Liquid via Spoon,Pudding Thick Liquid via Spoon Oral Phase Source: MBSIMP (TM) (C) Bolus Specific Scoring Grid Lip Closure WFL Tongue Control During Bolus Hold WFL Bolus Prep/Mastication WFL Bolus Transport/Lingual Motion WFL A/P Lingual Propulsion Delay No Oral Residue WFL Nasal Regurgitation No Additional Oral Phase Observations OME was observed informally to be WFL. Pharyngeal Phase Source: MBSIMP (TM) (C) Bolus Specific Scoring Grid Delayed Initiation of Pharyngeal Swallow Yes: Premature spillage to the pyriform sinuses pre-swallow Number of Seconds Delayed (seconds) < 1s Soft Palate Elevation WFL Tongue Base Strength/Range of Motion Mild Impairment Residue Along the Tongue Base Yes: Trace to minimal Clearance of Residue Along Tongue Base Minimal Impairment Laryngeal Elevation Minimal Impairment Anterior Hyoid Movement Minimal Impairment Epiglottic Range of Motion Severe Impairment Vallecular Residue Yes: remained throughout assessment Clearance of Vallecular Residue Severe Impairment Laryngeal Vestibular Closure Severe Impairment Pharyngeal Stripping Wave Mild Impairment Posterior Pharyngeal Wall Residue Yes: remained throughout assessment Clearance of Posterior Pharyngeal Wall Moderate Impairment Residue Upper Esophageal Sphincter Opening WFL Residue in the Pyriform Sinuses Yes: remained throughout assessment Clearance of Residue in the Pyriform Moderate Impairment Sinuses Additional Pharyngeal Phase Observations Delayed swallow with premature spllage to the valeculla and into the pyriform sinuses. Hyolaryngeal elevation and hyoid movement were adequate. Mild tongue base weakness observed with pooling at base of tongue. There was no inversion of the epiglottis across all trials. The epiglottis was upright against the posterior wall, resulting in poor bolus control, penetration and dara aspiration. Two teaspoons of thin liquids were trialed with aspiration. Aspiration also occurred with nectar thick liquids. Honey thick liquids were not aspirated; however there was significant pooling noted in the valeculla, the pyriform sinuses, along the the vocal folds and along the posterior pharyngeal wall. As the thickened pooling thinned, there was penetration observed on the subepiglottic surface into the vestibule. Tracheal residue was noted on the anterior wall and the posterior wall of the trachea. At this point the MBSS evaluation was stopped secondary to high aspiration risk. The pt was observed to cough following each trial. No silent aspiration occurred. A/P View Textures Administered Trials Presented Thin Liquid via Cup A/P View Observations Residue Observed Pyriform Sinus Right,Pyriform Sinus Left Esophageal Function No Impairment (WNL) Clinical Impressions Dysphagia Type pharyngeal phase dysphagia Patient Appropriate for Therapy Consultation with MD/surgeon needed before recommending tx Recommendations Diet Liquids Order Nothing by Mouth Diet Order NPO Medication Recommendation Not Recommended by Mouth Treatment Plan Recommended Referrals Primary Care Physician Additional Recommended Referrals orthopedic surgeon
--- NOTE | 2020-06-20 14:37 | PC.NURSE ---
Patient A/O x4, up IND in the room, denies SOB, denies chest pain, or increased WOB with activity. PO medications held d/t patients NPO status for barium swallow study. Patient reports neck pain 12/30, MD aware, neck brace remains intact, dressing is SCI. Patient was off unit for procedure at 1130, upon return, back on tele, SCD's on. IV pain medication prescribed and administered. Patient reports feeling constipated, last BM 06/17 prior to neck surgery, patient given suppository. IV abx infusing. at beside at this time.
--- NOTE | 2020-06-20 14:42 | CM.IDA ---
Initial DCP Assessment Note Pt is a 75 yo male, resident of [place], patient is s/p a recent spinal surgery at [place] (06.17.20), arrives to ED w/ fever, cough and chills. According to JITENDRA Aguilar, patient appears to have aspiration pneumonia sec to recent spinal surgery and complications thereafter (aspirating). PCP: Lashae Holt Payer: GAVIN/Ralph Reviewed chart, pt discussed in multidisciplinary rounds this morning. Attempted to complete DCP assessment this afternoon, JITENDRA Aguilar explains we are awaiting further input from Dr Akbar larson medical POC- patient is indp and active at baseline but is having swallowing and vocal chord difficulties, barium swallow eval done this morning indicates following : pharyngeal phase dysphagia, Consultation with MD/surgeon needed before recommending tx Patient has been transitioned to NPO. Will await medical POC to unfold before completing bedside assessment, however, it is likely that patient will either transfer to higher level of care or await ENT input here over the next few days (?) DCP team will follow closely for any DC needs or concerns that arise. NATI Oliveira
--- NOTE | 2020-06-20 15:19 | ST.IPDYTX ---
Visit Care Team Role Provider Type Lashae Holt PA-C Primary Care Provider Physician Specialty: Internal Medicine Address: [address] [place] [address], [address] Email: [email or web address] COBY Peralta Family Provider Non-Staff Specialty: Naturopathy Address: [address] [place] [address], [address] Email: Skinny Bishop DO Emergency Provider Physician Referring Provider Specialty: Emergency Medicine Address: [address] [place] [address], [address] Email: [email or web address] LIZZ MouraGROUP [facility]ALTH [facility] Admit Provider Physician Attending Provider Specialty: Medical Address: [address] [place] [address], [address] Email: ROLLWAY WORKER Dysphagia Treatment ROLLWAY WORKER Dysphagia Treatment Start: 06/20/20 15:07 Freq: Status: Active Protocol: Document 06/20/20 15:07 LNK (Rec: 06/20/20 15:18 LNK [id number]) Dysphagia Treatment Session Time Visit Start Time 14:45 Visit Stop Time 15:05 Total Visit Minutes 20 Setting Assessment Location Acute Care Visit Type Note Type Treatment Note Next Note Type Next Note Type Re-Evaluation Patient Information Identification Type Name,ID Wristband Subjective Observations Pt was i bed with his present in the room. Treatment Treatment Activities No trials PO were attempted. Education about the normal swallow was provided to the pt and his via an computer generated application. Following the demonstration, a video of today's MBSS was shown to them. The pt reported that he has currently started steroid treatment to reduce swelling within the pharynx. Discussed with the pt a plan to wait until Tuesday and reevuate/repeat MBSS to determine if there is reduced swelling and improved movement of the epiglottis. Reported same to Dr Webber who indicated that ENT will be by either his or Tuesday to assess the vocal folds/ larynx at that time for paresis/paralysis. Pt and his indicated they understood and were appreciative. Assessment Patient Response to Treatment Excellent Diet Recommendations Liquids Order Nothing by Mouth Diet Order NPO Medication Recommendations Not Recommended by Mouth Treatment Plan Appropriate for Continued Therapy Yes Therapy Recommendations Will follow up with pt on Tuesday06/23/20 Referrals/Other Recommended Referrals Other,ENT Consult
[2020-06-20] MEDS: DEXAMETHASONE 4 MG/ML VIAL IV (19:01)
[2020-06-21] VITALS (10 sets, daily range): BP systolic 133–184; BP diastolic 81–91; PULSE 52–90; RESP 17–19; TEMP 36.6–36.7; O2SAT 93–98
[2020-06-21] MEDS: SODIUM CHLORIDE 0.9% FLUSH 10 ML IV ×4 (00:25→12:28)
[2020-06-21] MEDS: DEXAMETHASONE 4 MG/ML VIAL IV ×3 (00:25→12:27)
[2020-06-21] MEDS: PIPERACILLIN-TAZO 3.375 GM/50 ML FROZ.PIGGY IV ×2 (01:10→07:33)
[2020-06-21 05:43] LABS: Alanine Aminotransferase 19 IU/L (<50); Albumin 4.1 g/dL (3.5-5.0); Albumin Globulin Ratio 1.3 (1.0-2.8); Alkaline Phosphatase 69 U/L (38-126); Aspartate Aminotransferase 33 IU/L (17-59); BUN Creatinine Ratio 20.9 (6-22); Bilirubin Total 1.5 mg/dL (0.2-1.3); Bilirubin Unconjugated 1.2 mg/dL (0.0-1.1); Blood Urea Nitrogen 14 mg/dL (9-20); Calcium 9.1 mg/dL (8.4-10.2); Carbon Dioxide 28 mmol/L (22-32); Chloride 101 mmol/L (98-107); Estimated Glomerular Filt Rate > 60.0 mL/min (>60); Globulin 3.1 g/dL (1.7-4.1); Glucose 148 mg/dL (80-110); HEMOLYSIS < 15 (0-50); Magnesium 2.1 mg/dL (1.6-2.3); Phosphorous 3.6 mg/dL (2.3-3.7); Potassium 4.1 mmol/L (3.4-5.1); Sodium 136 mmol/L (137-145); Total Protein 7.2 g/dL (6.3-8.2)
[2020-06-21 06:33] LABS: Add Manual Diff / Slide Review NO; Basophils Absolute Auto 0 /uL (0-100); Eosinophils Absolute Auto 0 /uL (0-450); Hemoglobin 14.7 g/dL (13.5-17.5); Lymphocytes Absolute Auto 400 /uL (1100-4500); Lymphocytes Percent Auto 7.3 % (25-40); Mean Corpuscular HGB Conc 33.1 % (30-36); Mean Corpuscular Hemoglobin 30.7 PG (26-34); Mean Corpuscular Volume 92.8 fL (80-100); Monocytes Absolute Auto 100 /uL (0-900); Neutrophils Absolute Auto 5100 /uL (1500-7000); Neutrophils Percent Auto 91.7 % (50-75); Platelet Count 110 X10^3/uL (150-400); Red Blood Cell Count 4.77 X10^6/uL (4.5-5.9); Red Cell Distribution Width 13.5 % (11.6-14.8); White Blood Cell Count 5.6 X10^3/uL (4.5-11.0)
[2020-06-21 06:37] LABS: Hematocrit 44.3 % (41-53)
--- NOTE | 2020-06-21 07:15 | PC.NURSE ---
Brimmer Blocker Note-Patient was awake moist of the night, denies pain, scheduled IV abx and steroids given, denies shortness of breath, SpO2 94% on RA, lung sounds crackles on Rt. SB on telemetry, rate 50s. NPO.
--- NOTE | 2020-06-21 08:26 | PC.NURSE ---
Patient alert, oriented rates neck pain 5/10, declined pain medication at this time. Ambulating indep in room, remains NPO.
[2020-06-21] MEDS: HYDROMORPHONE 1 MG INJ IV (09:48)
[2020-06-21] MEDS: PANTOPRAZOLE 40 MG VIAL 20 MG IV (09:49)
--- NOTE | 2020-06-21 13:02 | P.PN_ITS ---
Subjective Subjective Date Patient Seen: 06/21/20 Interval history: Patient is a 75-year-old male who was admitted to the hospital with aspiration pneumonia following a C5-C6 fusion. He reports difficulty sleeping at night, this is related to both steroids feeling a little bit agitated and multiple interruptions and asleep. The patient ideally would like to have ENT evaluate him and to discontinue steroids. Discussed steroids as part of his treatment regimen but I will prescribe something for sleep at night in addition to trying to change his medication regimens to a more compatible frequency that will allow him to rest. He denies any shortness of breath. He has no cough. He has no pain. Exam Vital Signs (past 8 hours): - 06/21/20 06:38 06/21/20 08:00 06/21/20 09:08 Temperature 98.0 F Pulse Rate 58 L 60 90 Respiratory Rate 18 17 18 Blood Pressure 144/81 H 155/91 H Pulse Oximetry 94 96 93 06/21/20 10:00 06/21/20 12:00 Temperature 98.0 F Pulse Rate 86 Respiratory Rate 19 Blood Pressure 133/84 Pulse Oximetry 96 96 Oxygen Delivery Method Room Air Oxygen Flow Rate 0 Narrative Exam Narrative: Pleasant gentleman lying in bed Neck: Bandage in place, no serosanguineous drainage noted Lungs: Clear to auscultation, decreased breath sounds Cardiac exam: Regular rate and rhythm, normal S1-S2, 2/6 systolic ejection murmur Abdomen: Soft nontender nondistended Extremities: No edema Objective Labs Result Diagrams: 06/21/20 04:40 06/21/20 04:50 Labs: Laboratory Results - last 24 hr 06/21/20 06/21/20 04:40 04:50 WBC 5.6 RBC 4.77 Hgb 14.7 Hct 44.3 MCV 92.8 MCH 30.7 MCHC 33.1 RDW 13.5 Plt Count 110 L Neut % (Auto) 91.7 H Lymph % (Auto) 7.3 L [place] % (Auto) 1.0 L Eos % (Auto) 0.0 L Baso % (Auto) 0.0 Neut # (Auto) 5100 Lymph # (Auto) 400 L [place] # (Auto) 100 Eos # (Auto) 0 Baso # (Auto) 0 Sodium 136 L Potassium 4.1 Chloride 101 Carbon Dioxide 28 BUN 14 Creatinine 0.67 Estimated GFR > 60.0 BUN/Creatinine Ratio 20.9 Glucose 148 H Calcium 9.1 Phosphorus 3.6 Magnesium 2.1 Total Bilirubin 1.5 H Conjugated Bilirubin 0.0 Unconjugated Bilirubin 1.2 H AST 33 ALT 19 Alkaline Phosphatase 69 Total Protein 7.2 Albumin 4.1 Globulin 3.1 Albumin/Globulin Ratio 1.3 [facility] Medical History (Updated 06/20/20 @ 02:39 by SUGAR Moura-) Chronic migraine without aura, with status migrainosus Fibromyalgia GERD (gastroesophageal reflux disease) Hemicrania continua Hypothyroidism (acquired) Surgical History (Updated 06/20/20 @ 02:39 by SUGAR Moura-VONNIE) History of carpal tunnel surgery History of fusion of cervical spine History of fusion of cervical spine History of heart artery stent History of hernia repair History of laminectomy History of lumbar fusion S/P TURP (status post transurethral resection of prostate) Family History (Updated 06/20/20 @ 02:40 by SUGAR Moura-) Father CAD (coronary artery disease) Mother Congestive heart failure Sister Cancer Social History household members: spouse Smoking Status: Never smoker Assessment & Plan Assessment & Plan narrative: Acute right lower lobe pneumonia secondary to aspiration, acute, present on admission - patient with recent C5-C6 anterior fusion on 06/17, according to his neurosurgeon in [place] patient's vocal cords were functional postoperatively and was swallowing upon discharge. If surgically related would be due most likely to swelling. Recommended trial of steroids with 10 mg decadron and 4 mg q6hr after. - speech therapy and MBS on 06/20 showing dara aspiration, and delayed penetration with even honey thick liquids. Recommended NPO and follow up over the weekend after steroids given. - ENT unavailable for endoscopy evaluation 06/20, Dr. Redmond, stated he may be available over the weekend if desired. Patient elected to await ENT evaluation here, rather than transfer to another facility for evaluation. - started on zosyn given initial hypoxemia and temperature elevation to 100.5 and RLL PNA on imaging. Low threshold to discontinue. -discussed with Dr. Redmond. Will continue IV steroids, repeat modified barium swallow on Tuesday. If the patient feels his barium swallow or is aspirating will discuss again with Dr. Redmond whether inpatient versus outpatient ENT evaluation is warranted -this was discussed with the patient and he agrees 2. Acute hypoxemic respiratory failure, resolved, present on admission - likely secondary to aspiration. treatment as noted above. Respiratory panel negative for infectious etiologies. CTA negative for PE. -patient no longer is hypoxic 3. Postop cervical spine fusion C5-C6 (06/17/2020) acute, stable, present on admission -patient's dressing is clean dry and intact without noted drainage, no noted erythema inflammation or pain surrounding dressing, patient to continue [place] collar in place. 4. Chronic migraines, acute on chronic, present on admission -continue patient's naproxen 5. Hypothyroidism, acquired, control unknown, present on admission -continue patient's levothyroxine, TSH unremarkable. 6. Fibromyalgia, acute on chronic, present on admission -pain control for now with IV dilaudid given NPO status 7. GERD, chronic, stable, not present on admission -continue PPI, replace with IV 8. CAD(stent placement x5 2013), chronic, stability unknown, not present on admission -continue patient's Crestor once tolerating PO 9. Insomnia -likely multifactorial -will prescribe sleeping
[2020-06-21] MEDS: PIPERACILLIN-TAZO 4.5 GM/100 ML FROZ.PIGGY IV ×2 (13:39→22:33)
--- NOTE | 2020-06-21 14:42 | CM.DPC ---
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 SW met bedside with pt and spouse and explained role and they confirm they live at home in [place] and pt recently had cervical surgery at [place] and discharged home with DME equipment from [facility] but progressed with ambulation and can now ambulate independently and spouse has DME in vehicle to return to [facility]. They deny any need for HH currently and pt and spouse quite independent at baseline. They are aware of community resources as well as they took care of their elderly mother for a few years and accessed caregiver resources etc. Pt and spouse are hopeful that pt improves towards d/c home on Tuesday if stable and do not anticipate any SW needs. Per RN, pt has been independent in room with no concerns at this time. Plan: SW to follow closely on Tuesday after repeat modified barium swallow towards determining any d/c planning needs. NATI Gong
[2020-06-21] MEDS: DEXAMETHASONE 10 MG/ML VIAL 6 MG IV ×2 (16:37→21:53)
[2020-06-21] MEDS: DEXTROSE 5%-0.45% NS 1,000 ML 60 ML IV (16:40)
[2020-06-21] MEDS: HALOPERIDOL 5 MG/ML VIAL 2 MG IV (19:21)
[2020-06-21] MEDS: LORazepam 2 MG/ML INJ 1 MG IV (22:33)
[2020-06-22] VITALS (11 sets, daily range): BP systolic 133–176; BP diastolic 77–97; PULSE 50–71; RESP 14–22; TEMP 36.4–37.1; O2SAT 94–98
[2020-06-22] MEDS: HALOPERIDOL 5 MG/ML VIAL 2 MG IV (04:57)
[2020-06-22 05:26] LABS: Alanine Aminotransferase 18 IU/L (<50); Albumin 4.3 g/dL (3.5-5.0); Albumin Globulin Ratio 1.4 (1.0-2.8); Alkaline Phosphatase 60 U/L (38-126); Aspartate Aminotransferase 32 IU/L (17-59); BUN Creatinine Ratio 29.2 (6-22); Bilirubin Total 1.2 mg/dL (0.2-1.3); Bilirubin Unconjugated 1.3 mg/dL (0.0-1.1); Blood Urea Nitrogen 21 mg/dL (9-20); Calcium 9.2 mg/dL (8.4-10.2); Carbon Dioxide 31 mmol/L (22-32); Chloride 102 mmol/L (98-107); Estimated Glomerular Filt Rate > 60.0 mL/min (>60); Globulin 3.1 g/dL (1.7-4.1); Glucose 162 mg/dL (80-110); HEMOLYSIS < 15 (0-50); Magnesium 2.4 mg/dL (1.6-2.3); Phosphorous 2.8 mg/dL (2.3-3.7); Potassium 4.5 mmol/L (3.4-5.1); Sodium 137 mmol/L (137-145); Total Protein 7.4 g/dL (6.3-8.2)
--- NOTE | 2020-06-22 06:32 | PC.NURSE ---
Patient rolled over in bedand IV canulla was dislodged. Removedand started new IV on right side of AC. Site looked puffy and had tautness, although IVF was not occluded. IV removed. diversified crops farmworker tried twice, LUMBER DRIVER able to place one in left AC. Zosyn was started.
[2020-06-22] MEDS: PIPERACILLIN-TAZO 4.5 GM/100 ML FROZ.PIGGY IV ×3 (06:41→22:05)
[2020-06-22] MEDS: DEXAMETHASONE 10 MG/ML VIAL 6 MG IV ×4 (08:13→21:12)
[2020-06-22] MEDS: PANTOPRAZOLE 40 MG VIAL 20 MG IV (08:14)
[2020-06-22] MEDS: HYDROMORPHONE 1 MG INJ IV ×3 (08:15→21:12)
--- NOTE | 2020-06-22 11:01 | CM.DANOTE ---
DCP Assessment: Patient is a pleasant 22 year-old- male who was admitted to the hospital for a fall down 15-20 stairs. Current diagnosis is rib fracture, pneumothorax and contusion of left lung. Patients Primary payer is [employer]. No PCP listed [facility] WELDING ESTIMATOR and WELDING ESTIMATOR Student met with patient at bed side this date provide information about role of social work in discharge planning. Patient reported that he is a moderate amount of pain and he does have trouble with mobility due to pain and decreased ROM in left arm. Patient has a Physical therapy order did assist in coordination of physical therapy and medication, message left with Luzma in therapy. If equipment needed patient would like to borrow from [employer], loan closet information will be given. Patient is in the [place] and lives in [place] with roommates. He reported his roommates Doni [phone] and Morteza [phone] will be able to help him during his recovery, he plans to take time off to recover. PLAN: Anticipate home when stable, patient does have entry to residents that does not include stairs. CM Team to follow closely and will check in when Therapy evaluation is done. NATI Mendoza MSW Student Discharge Planning/Care Management Advanced directive, confirm from FAMILY Start: 06/20/20 00:47 Freq: Q24H Status: Active Protocol: Document 06/22/20 05:47 DL (Rec: 06/22/20 05:48 DL [id number]) Advance Directive, confirm on record Time 05:47 Person contacted patient Copy received No CM Discharge Assessment Start: 06/22/20 10:48 Freq: Status: Active Protocol: Document 06/22/20 10:48 AL (Rec: 06/22/20 11:00 AL [id number]) Discharge Planning Assessment Assigned Pheresis Nurse NATI Elizabeth Student Contact Information Friend Doni: [phone] Friend Morteza: [phone] Advance Directives? Yes History Provided By Patient,Medical Record Has Patient been admitted in last 30 No days? Prior Living Arrangements House Household Members friend(s) Type of transporation used prior to Drives own vehicle admit Caregiver for Another No Comment Will provide list for loan closets. Barriers to Discharge No Discharge Plan Home Transportation Arrangement Patient will have a friend/ roomates will provide transportation upon D/C Additional Comment PT evaluation pending Whiteboard Updated in Patient Room with Yes name and ext. # of Pheresis Nurse Review Status In Process
--- NOTE | 2020-06-22 11:04 | PC.NURSE ---
Patient A/Ox4. Ambulating in the halls at this time. Patient c/o pain earlier this AM, Dilaudid administered, patient reported pain improvement. Neck brace intact, removed for skin check, reapplied, dsg is CDI. Patient denies SOB or increased WOB with activity. Remains NPO. Refusing SCD's. Ambulating often in the room and taking walks through the basilio. IV site in L FA is patent, D5 1/2 NS infusing at 60cc/hr per MD order. Patient denies lightheadedness, dizziness, numbness or tingling in the extremities or chest pain. Pulses equal. Patient is voiding in the restroom. Call light in reach.
--- NOTE | 2020-06-22 11:10 | PM.PN.1 ---
Subjective Subjective Date Patient Seen: 06/22/20 Interval history: The patient is a 75-year-old male who is status post C5-C6 fusion who presented to the hospital with cough fever and shortness of breath. Patient was found to have aspiration pneumonia. This is likely related to swelling and aspiration post procedure. He has been placed on Decadron for improvement in the swelling. He had a modified barium swallow which showed he was frankly aspirating. He has been on the steroids Tuesday and Tuesday and tolerating them well. The patient is scheduled for repeat modified barium swallow tomorrow. His voice is improved and he has no additional complaint. Exam Vital Signs (past 8 hours): - 06/22/20 05:00 06/22/20 06:00 06/22/20 08:10 Temperature 98.5 F Pulse Rate 71 62 Respiratory Rate 18 16 Blood Pressure 176/97 H 156/83 H 156/86 H Pulse Oximetry 96 96 95 06/22/20 10:00 Temperature Pulse Rate Respiratory Rate Blood Pressure Pulse Oximetry 98 Oxygen Delivery Method Room Air Oxygen Flow Rate 0 Narrative Exam Narrative: Pleasant cooperative male resting comfortably in no obvious distress Neck: Bandage in place no exudate Lungs: Decreased breath sounds but clear to auscultation Cardiac exam: Regular rate and rhythm normal S1-S2 with a 2/6 systolic ejection murmur Abdomen: Soft nontender nondistended Extremities: No edema Objective Labs Result Diagrams: 06/21/20 04:40 06/22/20 04:40 Labs: Laboratory Results - last 24 hr 06/22/20 04:40 Sodium 137 Potassium 4.5 Chloride 102 Carbon Dioxide 31 BUN 21 H Creatinine 0.72 Estimated GFR > 60.0 BUN/Creatinine Ratio 29.2 H Glucose 162 H Calcium 9.2 Phosphorus 2.8 Magnesium 2.4 H Total Bilirubin 1.2 Conjugated Bilirubin 0.0 Unconjugated Bilirubin 1.3 H AST 32 ALT 18 Alkaline Phosphatase 60 Total Protein 7.4 Albumin 4.3 Globulin 3.1 Albumin/Globulin Ratio 1.4 [facility] Medical History (Updated 06/20/20 @ 02:39 by JAMIE Moura) Chronic migraine without aura, with status migrainosus Fibromyalgia GERD (gastroesophageal reflux disease) Hemicrania continua Hypothyroidism (acquired) Surgical History (Updated 06/20/20 @ 02:39 by JAMIE Moura) History of carpal tunnel surgery History of fusion of cervical spine History of fusion of cervical spine History of heart artery stent History of hernia repair History of laminectomy History of lumbar fusion S/P TURP (status post transurethral resection of prostate) Family History (Updated 06/20/20 @ 02:40 by Dahlia Louis, [facility]-) Father CAD (coronary artery disease) Mother Congestive heart failure Sister Cancer Social History household members: friend(s) Smoking Status: Never smoker Assessment & Plan Assessment & Plan narrative: 1. Aspiration pneumonia -likely postoperative complication from C5-C6 surgery -patient with modified barium study showing dara aspiration -currently on steroids to decrease swelling and hopefully improved vocal cords and decreased aspiration event -will continue Zosyn for aspiration pneumonia -will continue steroid -repeat barium swallow tomorrow -if patient continues to aspirate, consider ENT for laryngoscopy versus continues steroids 2. GERD -continue PPI 3. Hyperlipidemia -statin on hold 4. Hypothyroid -holding L-thyroxine for now
[2020-06-22] MEDS: DEXTROSE 5%-0.45% NS 1,000 ML 60 ML IV (13:37)
--- NOTE | 2020-06-22 18:08 | PC.NURSE ---
Addendum entered by Shirley Fernandez R.N. 06/22/20 21:54: Pt rates iv dilaudid effective to manage pain decreasing reported pain from 7/10 to 4/10. As pt is NPO, iv dilaudid is utilized as ordered even though pt's reported pain is one numeral above guideline for giving this medication. Continues to manage own secretions and airway without difficulty. Resting quietly in bed with head of bed slightly elevated. No respiratory distress noted. Declines SCD's. No peripheral edema noted. Original Note: Pt masked and independently ambulatory in hallway with IV pole and [place] brace in place to neck. Surgical dressing to anterior neck is visible, dry and intact. Pt denies any difficulty with managing own secretions or airway. NPO except for oral care by pt. Spouse is present and involved in pt's care. Pt rates incisional pain 7/10 and was given iv dilaudid as per emar. Coarse breath sounds to all posterior garcia. Slight wheeze left anterior field.
[2020-06-23] VITALS (10 sets, daily range): BP systolic 137–162; BP diastolic 75–94; PULSE 46–61; RESP 15–17; TEMP 36.4–37.2; O2SAT 93–97
[2020-06-23 04:54] LABS: Alanine Aminotransferase 16 IU/L (<50); Albumin 3.9 g/dL (3.5-5.0); Albumin Globulin Ratio 1.4 (1.0-2.8); Alkaline Phosphatase 53 U/L (38-126); Aspartate Aminotransferase 26 IU/L (17-59); BUN Creatinine Ratio 31.9 (6-22); Bilirubin Unconjugated 1.1 mg/dL (0.0-1.1); Blood Urea Nitrogen 22 mg/dL (9-20); Calcium 8.9 mg/dL (8.4-10.2); Carbon Dioxide 28 mmol/L (22-32); Chloride 103 mmol/L (98-107); Estimated Glomerular Filt Rate > 60.0 mL/min (>60); Globulin 2.8 g/dL (1.7-4.1); Glucose 164 mg/dL (80-110); HEMOLYSIS < 15 (0-50); Magnesium 2.5 mg/dL (1.6-2.3); Potassium 4.2 mmol/L (3.4-5.1); Sodium 134 mmol/L (137-145); Total Protein 6.7 g/dL (6.3-8.2)
[2020-06-23] MEDS: PIPERACILLIN-TAZO 4.5 GM/100 ML FROZ.PIGGY IV ×3 (05:33→21:27)
[2020-06-23] MEDS: DEXTROSE 5%-0.45% NS 1,000 ML 60 ML IV (08:49)
[2020-06-23] MEDS: DEXAMETHASONE 10 MG/ML VIAL 6 MG IV ×4 (08:50→21:27)
[2020-06-23] MEDS: PANTOPRAZOLE 40 MG VIAL 20 MG IV (08:50)
--- NOTE | 2020-06-23 09:09 | P.PN_ITS ---
Subjective Subjective Date Patient Seen: 06/23/20 Interval history: Patient is 75-year-old male status post C5-C6 fusion presented with cough and dyspnea secondary to aspiration pneumonia. Patient is being treated with IV antibiotic and Decadron to reduce postop swelling. He is scheduled for repeat modified barium swallow today. Exam Vital Signs (past 8 hours): - 06/23/20 02:00 06/23/20 04:58 06/23/20 08:00 Temperature 97.5 F L 98.6 F Pulse Rate 51 L 53 L Respiratory Rate 16 15 Blood Pressure 141/75 H 140/85 Pulse Oximetry 94 93 94 Oxygen Delivery Method Room Air Oxygen Flow Rate 0 Narrative Exam Narrative: General: Alert and pleasant male in no acute distress HEENT: Voice normal Lungs: Clear to auscultation Heart: Regular rhythm Extremities: No edema Neurological: Affect normal, speech normal, nonfocal Objective Labs Result Diagrams: 06/21/20 04:40 06/23/20 04:30 Labs: Laboratory Results - last 24 hr 06/23/20 04:30 Sodium 134 L Potassium 4.2 Chloride 103 Carbon Dioxide 28 BUN 22 H Creatinine 0.69 Estimated GFR > 60.0 BUN/Creatinine Ratio 31.9 H Glucose 164 H Calcium 8.9 Phosphorus 3.0 Magnesium 2.5 H Total Bilirubin 1.0 Conjugated Bilirubin 0.0 Unconjugated Bilirubin 1.1 AST 26 ALT 16 Alkaline Phosphatase 53 Total Protein 6.7 Albumin 3.9 Globulin 2.8 Albumin/Globulin Ratio 1.4 [facility] Medical History (Updated 06/20/20 @ 02:39 by JAMIE Moura) Chronic migraine without aura, with status migrainosus Fibromyalgia GERD (gastroesophageal reflux disease) Hemicrania continua Hypothyroidism (acquired) Surgical History (Updated 06/20/20 @ 02:39 by SUGAR Moura-VONNIE) History of carpal tunnel surgery History of fusion of cervical spine History of fusion of cervical spine History of heart artery stent History of hernia repair History of laminectomy History of lumbar fusion S/P TURP (status post transurethral resection of prostate) Family History (Updated 06/20/20 @ 02:40 by JAMIE Moura) Father CAD (coronary artery disease) Mother Congestive heart failure Sister Cancer Social History household members: friend(s) Smoking Status: Never smoker Assessment & Plan Assessment & Plan narrative: This is a 75-year-old male status post C5-C6 fusion admitted for aspiration pneumonia 1. Aspiration pneumonia -likely postop complication from C5-C6 surgery -modified barium swallow showed dara aspiration and patient is NPO -continue Zosyn and Decadron 6 mg IV q.6 hours -continue D5 NS at 60 cc/hour -repeat MBS for today -if patient continues to aspirate, consider ENT for laryngoscopy versus continue steroids -possibly patient can go home on oral antibiotic if passes MBS 2. GERD -continue PPI IV
--- NOTE | 2020-06-23 10:37 | PC.NURSE ---
Day shift note: Patient awake, alert, and pleasantly cooperative. Hard neck collar in place, dressing to anterior neck, CDI. 4+ strenght to BUE, good hand communication skills instructor and shoulder shrugs, numbness to distal 1st and second finger of right hand (states is improving post surgery). Continue NPO. States can swallow saliva without difficulty. No upper airway compromise noted, speaking in full sentences. IVF infusing. Calls appropriately for staff assist. Awaiting for second modified barium swallow scheduled for 1400.
--- NOTE | 2020-06-23 12:01 | SLP.IPNOTE ---
Follow-up MBS scheduled for 2:00 today. Pt informed and appreciative. He had questions related to how long he might have to stay at the hospital. He was informed that MBS results would help answer those questions, which would be best directed to MD.
--- NOTE | 2020-06-23 13:37 | DI.RAD.S_ITS ---
PROCEDURE: [place] BARIUM SWALLOW W SPEECH INDICATIONS: Dysphagia COMPARISON: TECHNIQUE: Examination was conducted in conjunction with speech pathology per standard protocol. In the lateral projection, filming was performed of the patient swallowing. AP projection filming may also be performed with patient swallowing. COMPARISON: [facility], [place] BARIUM SWALLOW W SPEECH, 06/20/2020, 12:34. [facility], BARIUM SWALLOW WITH SPEECH, 10/20/2011, 13:13. FINDINGS: Function: The oral preparatory phase appears normal, with proper containment. The subsequent oral propulsive phase appeared normal but epiglottic tilt was not observed and pooling of contrast within the vallecula and piriform sinus was present. No laryngotracheal penetration or aspiration. No pathologic vallecular pooling. Morphology: No cricopharyngeal bar is identified. No cervical esophageal webs. No Zenker's diverticulum. No strictures. IMPRESSION: Reduced motility during the pharyngeal phase of swallowing with absence of epiglottic tilt and reduced motility within the region at and above the level of the esophageal origin. Please refer to the dedicated speech therapy swallowing evaluation report which will be independently. Dictated by: Javier Chaudhry M.D. on 06/23/2020 at 14:49 Approved by: Javier Chaudhry M.D. on 06/23/2020 at 14:52
--- NOTE | 2020-06-23 17:43 | ST.SWALLOW ---
Visit Care Team Role Provider Type Lashae Holt PA-C Primary Care Provider Physician Specialty: Internal Medicine Address: [address] [place] [address], [address] Email: [email or web address] Александр Melo MD Other Providers Physician Specialty: Ear, Nose, Throat Address: [address] [place] [address], [address] Email: [email or web address] Peralta Family Provider Non-Staff Specialty: Naturopathy Address: [address] [place] [address], [phone] Email: Skinny Bishop DO Emergency Provider Physician Referring Provider Specialty: Emergency Medicine Address: [address] [place] [address], [address] Email: [email or web address] [email or web address] Dahlia Louis [facility] Admit Provider Physician Attending Provider Specialty: Medical Address: [address] [place] [address], [address] Email: Modified Barium Swallow Study [facility] Modified Barium Swallow Study Start: 06/20/20 13:54 Freq: Status: Active Protocol: Document 06/23/20 16:58 SONIA (Rec: 06/23/20 17:00 SONIA [id number]) Modified Barium Swallow Study Total Time Visit Start Time 14:00 Visit Stop Time 14:20 Total Visit Minutes 20 Patient Information Patient History The patient is 75-year-old male who experienced fever, productive cough and shortness of breath 3 days after discharge from [place] after having an anterior cervical fusion C-5/C-6 (06/17/20). Upon admit he complained of slight difficulty swallowing liquids and clearing secretions from airway. MBS was ordered and completed 06/20/20, revealing no epiglottic inversion, swelling of the pharyngeal wall, and multiple episodes of dara aspiration. The pt was made NPO and swelling was treated with steroids over the weekend. Repeat MBS is ordered for today for re- evaluation of swallow. The pt has a history of prior ACDF surgery targeting C3-4/ C54-5, after which he was observed to be aspirating during Barium Swallow Study with GI, but no aspiration was observed with follow-on MBSS with Speech Pathology. Subjective Observations The pt was brought to Radiology by wheelchair. His accompanied him and waiting in the waiting room. The pt reported new onset today of hoarse voice. His voice was perceived by the ORACLE FUSION MIDDLEWARE DEVELOPER as mildly rough. The pt transferred independently to MBS chair and agreed to the procedure. Patient Positioning Position View Lateral Imaging Lateral View Textures Administered Trials Presented Thin Liquid via Spoon,Thin Liquid via Cup,Amorita Liquid via Spoon,Amorita Liquid via Cup,Honey Liquid via Spoon Oral Phase Source: MBSIMP (TM) (C) Bolus Specific Scoring Grid Lip Closure No Impairment (WNL) Tongue Control During Bolus Hold No Impairment (WNL) Bolus Prep/Mastication No Impairment (WNL) Bolus Transport/Lingual Motion No Impairment (WNL) A/P Lingual Propulsion Delay No Oral Residue WFL Residue Clearing No Impairment (WNL) Nasal Regurgitation No Additional Oral Phase Observations Oral phase is WNL. Pharyngeal Phase Source: MBSIMP (TM) (C) Bolus Specific Scoring Grid Delayed Initiation of Pharyngeal Swallow No Soft Palate Elevation No Impairment (WNL) Tongue Base Strength/Range of Motion No Impairment (WNL) Residue Along the Tongue Base Yes: Trace to mild Clearance of Residue Along Tongue Base Moderate Impairment Laryngeal Elevation No Impairment (WNL) Anterior Hyoid Movement No Impairment (WNL) Epiglottic Range of Motion Severe Impairment Vallecular Residue Yes: Mod-Severe with every trial Clearance of Vallecular Residue Severe Impairment Laryngeal Vestibular Closure No Impairment (WNL) Pharyngeal Stripping Wave Moderate Impairment Posterior Pharyngeal Wall Residue Yes: Mild Clearance of Posterior Pharyngeal Wall Severe Impairment Residue Upper Esophageal Sphincter Opening Moderate Impairment Residue in the Pyriform Sinuses Yes: Mod-Severe with all trials Clearance of Residue in the Pyriform Severe Impairment Sinuses Pharyngoesophageal Backflow Observed No Additional Pharyngeal Phase Observations Significant reduction of pharyngeal wall swelling was observed. No laryngeal penetration or tracheal aspiration was observed. Epiglottic inversion is absent with exception of minimal movement in response to pressure from base of tongue. The epiglottis rested against the posterior pharyngeal wall during all swallows, resulting in significant valecular residue that does not clear with 3+ swallows. Pharyngeal constriction is improved since last MBS but continues to be moderately weak. Extension and duration of UES are shortened , resulting in consistent and significant pooling of residue at pyriform sinuses, also which does not clear in 3+ swallows. Hyolaryngeal elevation and anterior excursion were WNL, and significantly improved closure of the laryngeal vestibule was observed, as compared to previous MBS 06/20. However, pharyngeal residue was observed to line the base of the epiglottis, nearing the opening of the laryngeal inlet, indicating the potential for penetration or aspiration after the swallow, although none was observed during the study. A/P View Clinical Impressions Dysphagia Type Moderate-Severe Pharyngeal Dysphagia Findings The pt exhibited reduced pharyngeal swelling and improved swallow safety since previous MBS on 06/20/20 with no episodes of penetration or aspiration observed during this study. However, he continues to have no epiglottic inversion, reduced pharyngeal stripping wave, and reduced UES extension and duration, resulting in significant pharyngeal residue that does not clear with multiple swallows. This increases his risk of aspiration post-swallow and restricts the pt from being able to safely consume adequate amounts of nutrition and hydration orally. Given the absence of epiglottic inversion and reduced UES opening despite normal hyolaryngeal elevation and anterior excursion, which typically aid these functions, possible vagus nerve damage is suspected. ENT consultation is recommended for assessment of vocal folds, both for swallow safety and in light of the pt' s changes of vocal quality. Also recommend consideration of TPN nutrition and maintaining pt's NPO status with exception of pleasure feeding of ice chips, pureed textures and NTLs in small amounts with use of chin tuck and super-supraglottic swallow maneuver. ORACLE FUSION MIDDLEWARE DEVELOPER consulted with Dr. Bill following completion of MBS. He was in agreement with ENT consultation and oral intake recommendations. Alternative nutrition/hydration considerations to be made pending ENT findings. Rehabilitation Potential Fair Patient Appropriate for Therapy Yes Recommendations Diet Liquids Order Nothing by Mouth Diet Order NPO Medication Recommendation Not Recommended by Mouth Comments Pleasure eating of ice chips, puree texture, NTLs ok in small amts Aspiration Precautions Recommended Precautions Upright at 90 Degrees,Frequent Rest Periods,Small Bites/Sips ,Chin Tuck,Double Swallow, Supraglottic Swallow Treatment Plan Therapy Recommendations Inpatient Speech Therapy, Outpatient Speech Therapy, Compensatory Strategy Education,Other Additional Therapy Recommendations Pt may be a good candidate for EMST. Recommended Referrals ENT Consult Short Term Goals 1. The pt will follow aspiration precautions and swallow strategies independently with therapeutic trials and small amounts of pleasure eating. 2. The pt will perform exercises with min cues ( written instructions) to increase engagement of pharyngeal structures to reduce residue and decrease risk of aspiration. Analytical Consultant Goals 1. The pt will demonstrate swallow function/safety sufficient to resume oral intake as primary source of nutrition. Placement Recommendation After Discharge Home,Outpatient Therapy
--- NOTE | 2020-06-23 17:54 | ST.IPDYTX ---
Visit Care Team Role Provider Type Lashae Holt PA-C Primary Care Provider Physician Specialty: Internal Medicine Address: [address] [place] [address], [address] Email: [email or web address] Александр Melo MD Other Providers Physician Specialty: Ear, Nose, Throat Address: [address] [place] [address], [address] Email: [email or web address] Peralta Family Provider Non-Staff Specialty: Naturopathy Address: [address] [place] [address], [address] Email: Skinny Bishop DO Emergency Provider Physician Referring Provider Specialty: Emergency Medicine Address: [address] [place] [address], [address] Email: [email or web address] Dahlia Louis [facility] Admit Provider Physician Attending Provider Specialty: Medical Address: [address] [place] [address], [address] Email: CASHIER CHECKER Dysphagia Treatment CASHIER CHECKER Dysphagia Treatment Start: 06/20/20 15:07 Freq: Status: Active Protocol: Document 06/23/20 17:46 SONIA (Rec: 06/23/20 17:53 SONIA [id number]) Dysphagia Treatment Session Time Visit Start Time 14:20 Visit Stop Time 15:20 Total Visit Minutes 60 Setting Assessment Location Acute Care Visit Type Note Type Treatment Note Next Note Type Next Note Type Treatment Note Patient Information Subjective Observations The pt was seen in his room after completion of MBS. His was present. Treatment Treatment Activities Extensive education was provided to the pt and his RE MBS results and recommendations, including ENT consultation and continued NPO status with exception of pleasure intake of ice chips, pureed texture (avoid sticky textures such as pudding) and NTLs in small/tsp amounts at a time, chin tuck, and super- supraglottic swallow maneuver. All questions were answered. Pt/spouse in agreement with recommendations. Dr. Bill arrived at the end of the session and informed that ENT Dr. Melo will come to the hospital this afternoon for consultation and evaluation via laryngoscopy to help guide POC. The CASHIER CHECKER left while Dr. Bill was still with the pt and his . Assessment Assessment of Improvement The pt exhibits improved swallow safety but not sufficient for resumption of oral intake as primary source of nutrition and hydration. ( See MBS report for details.) The pt and his demonstrated and verbalized understanding of all information provided and agreement with POC, although the pt is very eager to leave the hospital. Diet Recommendations Recommendations Continue Current Diet Liquids Order Nothing by Mouth Diet Order NPO Medication Recommendations Not Recommended by Mouth Comments Pleasure intake of ice chips, puree texture, NTLs in small amounts Aspiration Precautions Recommended Precautions Upright at 90 Degrees,Frequent Rest Periods,Small Bites/Sips ,Chin Tuck,Effortful Swallow, Double Swallow,Supraglottic Swallow Treatment Plan Placement Recommendation after Discharge Home,Outpatient Therapy Appropriate for Continued Therapy Yes Dysphagia Goals 1. The pt will follow aspiration precautions and swallow strategies independently with therapeutic trials and small amounts of pleasure eating. 2. The pt will perform exercises with min cues ( written instructions) to increase engagement of pharyngeal structures to reduce residue and decrease risk of aspiration. 3. The pt will demonstrate swallow function/safety sufficient to resume oral intake as primary source of nutrition.
[2020-06-23] MEDS: HYDROMORPHONE 1 MG INJ IV (20:04)
[2020-06-23] MEDS: LORazepam 2 MG/ML INJ 1 MG IV (21:26)
[2020-06-24] VITALS (8 sets, daily range): BP systolic 127–161; BP diastolic 75–85; PULSE 48–57; RESP 16–18; TEMP 36.2–36.7; O2SAT 96–98
[2020-06-24] MEDS: DEXTROSE 5%-0.45% NS 1,000 ML 60 ML IV (05:26)
[2020-06-24] MEDS: PIPERACILLIN-TAZO 4.5 GM/100 ML FROZ.PIGGY IV ×3 (05:27→21:10)
[2020-06-24] MEDS: DEXAMETHASONE 10 MG/ML VIAL 6 MG IV ×2 (08:33→21:10)
[2020-06-24] MEDS: PANTOPRAZOLE 40 MG VIAL 20 MG IV (08:34)
[2020-06-24] MEDS: HYDROMORPHONE 1 MG INJ IV ×2 (08:37→17:33)
--- NOTE | 2020-06-24 10:20 | ST.IPDYTX ---
Visit Care Team Role Provider Type Lashae Holt PA-C Primary Care Provider Physician Specialty: Internal Medicine Address: [address] [place] [address], [address] Email: [email or web address] Александр Melo MD Other Providers Physician Specialty: Ear, Nose, Throat Address: [address] [place] [address], [address] Email: [email or web address] Peralta Family Provider Non-Staff Specialty: Naturopathy Address: [address] [place] [address], [address] Email: Skinny Bishop DO Emergency Provider Physician Referring Provider Specialty: Emergency Medicine Address: [address] [place] [address], [address] Email: [email or web address] Dahlia Louis [facility] Admit Provider Physician Attending Provider Specialty: Medical Address: [address] [place] [address], [address] Email: UI ENGINEER Dysphagia Treatment UI ENGINEER Dysphagia Treatment Start: 06/20/20 15:07 Freq: Status: Active Protocol: Document 06/24/20 10:05 [email or web address] (Rec: 06/24/20 10:19 LNK [id number]) Dysphagia Treatment Session Time Visit Start Time 09:20 Visit Stop Time 10:00 Total Visit Minutes 40 Setting Assessment Location Acute Care Visit Type Note Type Treatment Note Next Note Type Next Note Type Treatment Note Patient Information Subjective Observations The pt was in the hallway walking. This UI ENGINEER walked with pt to his room. His was not in attendance. Pt had breakfast tray in his room with Dysphagia Advanced diet and nectar thick liquids. Treatment Treatment Activities Discussed the breakfast tray/ solid foods with pt noting risk for aspiration without epiglottic inversion. Recommended that the pt'ds diet be downgraded to dysphagia mechanical to avoid accidental aspiration of any solid material. Pt indicated he understood. Pt reported that Dr. Bernabe ENT was in this morning and via laryngoscope, the left vocal fold is weak with mobility. Pt thinks his voice is improved and the phlegm in his throat is better . Extensive education regarding s/sx of aspiration pneumonia and safe PO strategies was provided. Vocal adduction exercises described and demonstrated to the pt. Pt then demonstrated the adduction exercise satisfactorily. Assessment Patient Response to Treatment Excellent Assessment of Improvement Pt and Dr Bill reported that Dr. Bernabe ENT was in to see pt. Laryngoscopy indicated a weak left vocal fold with movement. There was no mention of the epiglottis movement that the pt could recall. Diet Recommendations Recommendations Downgrade Diet Order Liquids Order [place] Diet Order Dysphagia Mechanical Aspiration Precautions Recommended Precautions Upright at 90 Degrees,Frequent Rest Periods,Small Bites/Sips ,Chin Tuck,Effortful Swallow, Double Swallow,Supraglottic Swallow Treatment Plan Placement Recommendation after Discharge Home,Outpatient Therapy Appropriate for Continued Therapy Yes Dysphagia Goals 1. The pt will follow aspiration precautions and swallow strategies independently with therapeutic trials and small amounts of pleasure eating. 2. The pt will perform exercises with min cues ( written instructions) to increase engagement of pharyngeal structures to reduce residue and decrease risk of aspiration. 3. The pt will demonstrate swallow function/safety sufficient to resume oral intake as primary source of nutrition.
--- NOTE | 2020-06-24 10:47 | PM.PN.1 ---
Subjective Subjective Date Patient Seen: 06/24/20 Interval history: Patient is 75-year-old male status post C5-C6 fusion presented with cough and dyspnea secondary to aspiration pneumonia. Patient feels improvement with less phlegm pooling in back of throat and less hoarseness this morning. Dr. Bernabe performed bedside laryngoscopy which showed his right vocal cord, which is on the side of his recent C-spine fusion, moving well where as movement in left vocal cord was weak. Dr. 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 Per discussion with Mimi from speech therapy, she is concerned patient's epiglottis is not moving/inverting and he could still end up with food stuck on his vocal cords. Patient is being tried on dysphagia mechanical soft with nectar thick fluids. Exam Vital Signs (past 8 hours): - 06/24/20 05:00 06/24/20 06:00 06/24/20 08:00 Temperature 97.7 F 98.0 F Pulse Rate 57 L 48 L Respiratory Rate 18 18 Blood Pressure 138/83 161/85 H Pulse Oximetry 97 97 97 Oxygen Delivery Method Room Air Oxygen Flow Rate 0 Narrative Exam Narrative: General: Alert and pleasant male in no acute distress HEENT: Voice slightly dysphonic, non stridorous Lungs: Clear to auscultation Heart: Regular rhythm Extremities: No edema Neurological: Affect normal, speech normal, nonfocal Objective Labs Result Diagrams: 06/21/20 04:40 06/23/20 04:30 [facility] Medical History (Updated 06/20/20 @ 02:39 by JAMIE Moura) Chronic migraine without aura, with status migrainosus Fibromyalgia GERD (gastroesophageal reflux disease) Hemicrania continua Hypothyroidism (acquired) Surgical History (Updated 06/20/20 @ 02:39 by JAMIE Moura) History of carpal tunnel surgery History of fusion of cervical spine History of fusion of cervical spine History of heart artery stent History of hernia repair History of laminectomy History of lumbar fusion S/P TURP (status post transurethral resection of prostate) Family History (Updated 06/20/20 @ 02:40 by JAMIE Moura) Father CAD (coronary artery disease) Mother Congestive heart failure Sister Cancer Social History household members: friend(s) Smoking Status: Never smoker Assessment & Plan Assessment & Plan narrative: This is a 75-year-old male status post C5-C6 fusion admitted for aspiration pneumonia 1. Aspiration pneumonia -patient is clearly improving from infectious standpoint without recent fever, cough for hypoxia -likely postop complication from C5-C6 surgery -patient's 1st modified barium swallow on 06/20 showed dara aspiration and patient was made NPO -repeat MBS on 06/23:Reduced motility during the pharyngeal phase of swallowing with absence of epiglottic tilt and reduced motility within the region at and above the level of the esophageal origin. -Dr. Bernabe performed bedside laryngoscopy on 06/24 which showed right vocal cord moving well, left vocal cord movement was weak which was thought to be chronic related to more distant C-spine surgery -speech therapy recommending dysphagia mechanical diet with nectar liquid, avoid foods that can get dried out and stick to back of throat, patient provided extensive education on tue/swallow technique and exercises -additionally he can remove the next splint while eating which will help with chin tuck swallow -continue Zosyn and can probably stop all antibiotic at discharge tomorrow -Decadron 6 mg IV q.6 hours decreased to 6 mg b.i.d. on 06/24 and can probably be rapidly tapered -continue D5 NS at 60 cc/hour, Hep-Lock if patient taking p.o. fluids well -outpatient speech therapy after discharge 2. GERD -continue PPI IV 3. Pain management postop C5-C6 fusion on 06/17/2020 ([facility]), stable -restarted pregabalin 200 mg b.i.d. and hydrocodone as needed -also has as needed IV hydromorphone ordered 4. Hyperlipidemia -restarted rosuvastatin 20 mg q.d. Patient can hopefully discharge tomorrow, Tuesday, if tolerating diet.
--- NOTE | 2020-06-24 13:36 | ST.IPDYTX ---
Visit Care Team Role Provider Type Lashae Holt PA-C Primary Care Provider Physician Specialty: Internal Medicine Address: [address] [place] [address], [address] Email: [email or web address] Александр Melo MD Other Providers Physician Specialty: Ear, Nose, Throat Address: [address] [place] [address], [address] Email: [email or web address] Peralta Family Provider Non-Staff Specialty: Naturopathy Address: [address] [place] [address], [address] Email: Skinny Bishop DO Emergency Provider Physician Referring Provider Specialty: Emergency Medicine Address: [address] [place] [address], [address] Email: [email or web address] Dahlia Louis [facility] Admit Provider Physician Attending Provider Specialty: Medical Address: [address] [place] [address], [address] Email: AIRPLANE PATROL PILOT Dysphagia Treatment AIRPLANE PATROL PILOT Dysphagia Treatment Start: 06/20/20 15:07 Freq: Status: Active Protocol: Document 06/24/20 13:29 LNK (Rec: 06/24/20 13:36 LNK [id number]) Dysphagia Treatment Session Time Visit Start Time 12:45 Visit Stop Time 13:05 Total Visit Minutes 20 Setting Assessment Location Acute Care Visit Type Note Type Treatment Note Next Note Type Next Note Type Treatment Note Patient Information Identification Type Name,ID Wristband Subjective Observations The pt was in his room with his . Treatment Treatment Activities Reviewed the information discussed this morning with the pt and his . Pt had a lunch tray of Dysphagia mechanical texture and the nectar liquids. Reviewed aspiration precautions, s/sx of aspiration pneumonia and the vocal adduction exercises. Reviewed recommendation for outpt therapy for swallow exercises. Both indicated they understood and were appreciative. Assessment Patient Response to Treatment Excellent Assessment of Improvement Pt reported that he had been doing the vocal adduction exercises and did not have difficulty holding his breath. Diet Recommendations Recommendations Downgrade Diet Order Liquids Order [place] Diet Order Dysphagia Mechanical Medication Recommendations Not Recommended by Mouth Comments Pleasure intake of ice chips, puree texture, NTLs in small amounts Aspiration Precautions Recommended Precautions Upright at 90 Degrees,Frequent Rest Periods,Small Bites/Sips ,Chin Tuck,Effortful Swallow, Double Swallow,Supraglottic Swallow Treatment Plan Placement Recommendation after Discharge Home,Outpatient Therapy Appropriate for Continued Therapy Yes Therapy Recommendations Will follow up with pt on Tuesday06/23/20 Dysphagia Goals 1. The pt will follow aspiration precautions and swallow strategies independently with therapeutic trials and small amounts of pleasure eating. 2. The pt will perform exercises with min cues ( written instructions) to increase engagement of pharyngeal structures to reduce residue and decrease risk of aspiration. 3. The pt will demonstrate swallow function/safety sufficient to resume oral intake as primary source of nutrition. Referrals/Other Recommended Referrals ENT Consult
[2020-06-24] MEDS: PREGABALIN 50 MG CAPSULE 200 MG PO (21:10)
[2020-06-25] VITALS: BP 158/80; PULSE 45; RESP 16; TEMP 36.6; O2SAT 94
[2020-06-25 04:00] VITALS: O2SAT 94
[2020-06-25] MEDS: PANTOPRAZOLE 20 MG TABLET PO (06:28)
[2020-06-25] MEDS: PIPERACILLIN-TAZO 4.5 GM/100 ML FROZ.PIGGY IV (06:28)
[2020-06-25] MEDS: LEVOTHYROXINE 25 MCG TABLET PO (06:28)
[2020-06-25] MEDS: HYDROMORPHONE 1 MG INJ IV (06:38)
[2020-06-25 08:00] VITALS: BP 130/75; PULSE 68; RESP 16; TEMP 36.6; O2SAT 95
[2020-06-25] MEDS: PREGABALIN 50 MG CAPSULE 200 MG PO (09:02)
[2020-06-25] MEDS: DEXAMETHASONE 10 MG/ML VIAL 6 MG IV (09:03)
[2020-06-25] MEDS: TAMSULOSIN 0.4 MG CAPSULE PO (09:03)
--- NOTE | 2020-06-25 14:04 | CM.DPNOTE ---
DC Note DC home today w/spouse as expected, no needs from this YIELD ANALYST JW
--- NOTE | 2020-06-25 16:38 | CONS_ITS ---
DATE OF SERVICE: 06/24/2020 CHIEF COMPLAINT: Aspiration pneumonia, dysphagia. HISTORY OF PRESENT ILLNESS: A 75-year-old male presented to [facility] 06/19 following right anterior cervical fusion, C5-C6 on 06/17 with the diagnosis of aspiration pneumonia. CT angiogram 06/19 report reviewed. Initial swallow study 06/20 showed at least mild penetration and aspiration, followup swallow study 06/23 pooling in the vallecula and piriform sinuses but no aspiration or penetration. Admit H and P from 06/20 was reviewed in detail as well as the latest progress note from Dr. Bill 06/23/2020. The patient describes a history of left anterior cervical fusion 25 years ago, possibly some hoarseness and dysphagia postoperatively. Denies any significant pain. His diet is restricted to nectar thick currently. Some mild throat pain but no other ENT complaints. PAST MEDICAL HISTORY: Reviewed on the admit history and physical. MEDICATIONS: Reviewed on the admit history and physical. ALLERGIES: REVIEWED ON THE ADMIT HISTORY AND PHYSICAL. SOCIAL HISTORY: Reviewed on the admit history and physical. FAMILY HISTORY: Reviewed on the admit history and physical. REVIEW OF SYSTEMS: Reviewed on the admit history and physical. PHYSICAL EXAMINATION: VITAL SIGNS: On the chart. GENERAL: Well-developed, well-nourished male, alert and oriented. HEENT: Head is normocephalic, atraumatic. External ears are normal. Ear canals grossly clear externally. External nose normal. Nostrils patent bilaterally. Healthy mucosa. Oral cavity/oropharynx: Normal. Normal soft palate and tongue. NECK: Hard cervical collar, partially removed. Bandages in place but overall soft and minimally tender. PROCEDURE: Flexible laryngoscopy. Following verbal consent, the lubricated flexible nasopharyngoscope was passed through the left nostril to reveal grossly normal left nasal cavity, nasopharynx, base of tongue, vallecula, and epiglottis. Trace pooling of saliva in the right piriform sinus but both vocal cords are definitely mobile. There is mild paresis on the LEFT with completely grossly normal mobility on the right. Vocal cords seem to approximate normally with phonation. ASSESSMENT: 1. Aspiration pneumonia. 2. LEFT vocal cord paresis, presumably related to remote cervical fusion on the left 25 years ago. Currently the right vocal cord exhibits normal movement. PLAN: As discussed with the patient, the on-call hospitalist as well as Dr. Bill, the findings were reviewed and he will be cleared to advance his oral intake slowly per speech pathology. I am happy to follow with as an outpatient but suspect the paresis on the left is extremely long standing and was otherwise asymptomatic. I presume there was an acute transient exacerbation or new right paresis that has resolved in the perioperative period. The patient agrees to the plan, understands, and is appreciative. Alfredo Hightower - MELVINA/samson/nicholas doc#: [id number]/job#: [id number] dd: 06/24/2020 07:17:00 dt: 06/25/2020 16:08:00 DICTATING MD/COPIES TO: Ramos Bernabe MD; Germán Bill MD; Lashae Holt PA-C; Ze Cruz MD COPIES MNE: GAYLA; ; ;
--- NOTE | 2020-06-26 18:11 | PM.DS.1 ---
History of Present Illness History of Present Illness Date Patient Seen: 06/26/20 Chief complaint: thinks pneumonia,cough,chills,fever Narrative: he patient is 75-year-old male Alfredo Hightower who is a nonsmoker with history of coronary artery disease (stents x 5 (2014)), Chronic migraines, GERD, hypothyroidism, fibromyalgia, presents with his in the chief complaint of fever, productive cough and shortness of breath over the course of the day. Yesterday he was discharged from [facility] after having an anterior cervical fusion C-5/C-6, A previous history of fusion C3-C5 25 years ago. His symptoms worsened over the day. Upon admit He complains slight difficulty swallowing liquids and clearing secretions from airway, denies increased drainage from surgical dressing. He's notes an occasional cough with green sputum. He's had fever as high as 102. He admits to chills that have since resolved He denies nausea, vomiting or diarrhea. He denies any current shortness of breath but it is noted that his pulse ox on room air is as low as 80% as high as 92% in the ER. He denies any chest pain. He is not dizzy nor weak or lightheaded. He denies any syncope. He denies exposure to persons known to have COVID. Patient's presenting labs BP 157/84, HR 77, RR 15, temp 100.5?, SaO2 92% on 2L/N/C, ABGs: PO2 62, bicarb 27, O2 sat 92%, CRP 3.5, proBNP 780, CK-MB 2.76, negative troponin, D-dimer 1975, Patient with fever, chills, hypoxemia, crackles on exam, CXR notes RLL infiltrate. Normal lactate, no significant elevated WBC or procalcitionin. ABG notes PO2 62 on RA. PE considered unlikely due to lack of pleuritic pain, improved oxygenation with pulse ox and only 2 days post op. However, DDimer ordered given lack of WBC or procalcitonin and was quite elevated, therefore CTA ordered which notes no PE, only RLL pneumonia. Due to patient's recent cervical surgery, history of aspiration pneumonia, recent hospitalization and antibiotic use patient is at risk for respiratory failure/bacterial pneumonia. Discharge Providers Provider Date of admission: 06/19/20 22:04 Discharge Date: 06/25/20 Primary care physician: Lashae Holt PA-C Consults: 06/19/20 22:22 Consult to Respiratory Therapy Evaluate & Treat Comment: Physician Instructions: Evaluate and treat 06/19/20 22:34 Consult to Discharge Planning Routine Comment: Consult to Occupational Therapy Evaluate & Treat Comment: Physician Instructions: Evaluate and treat Consult to Physical Therapy Evaluate & Treat Comment: Physician Instructions: Evaluate and Treat 06/20/20 04:47 Consult to Speech Therapy Evaluate & Treat Comment: Physician Instructions: Evaluate and treat 06/23/20 15:07 Consult to Physician Routine Comment: Consulting Provider: Александр Melo Reason for consultation: vocal cord dysfunction s/p C5-6 fusion Has provider been notified: Yes Discharge provider: Shayy Andrew MD Summary Hospital Course Discharge Diagnosis: 1. Aspiration pneumonia 2. Left vocal cord paralysis, probably chronic 3. status post C5-C6 fusion 4. GERD 5. History of coronary disease 6. Hyperlipidemia Hospital Course: Patient was patient was admitted to the hospital for aspiration pneumonia. Was found to have pneumonia on x-ray following C5-C6 fusion surgery. He was placed on Zosyn. The patient underwent a modified barium swallow study and showed dara aspiration. He was made NPO. Patient was placed on Decadron to decrease swelling. A repeat modified barium study was obtained which again showed daar aspiration and inability to manage secretions. The patient was seen by ear nose and throat, Dr. Bernabe who performed direct laryngoscopy. This revealed partial vocal cord paralysis on the left which was felt to be chronic as well as improved normal vocal cord movement on the right. The patient's diet was advanced to mechanical soft nectar thick diet. He was seen by speech therapy and instructed on how to manage his diet. Patient's steroids were tapered accordingly. He was able to tolerate the mechanical soft diet. He completed a full course of antibiotic. He was deemed appropriate for discharge and arrangements were made for him to discharge home. Patient will be referred to speech pathology as an outpatient for ongoing therapy Status at Discharge Cognitive/behavioral status at discharge: oriented Functional status at discharge: independent ambulation Overall status at discharge: patient is back to baseline Time Spent with Patient Time spent: Less than 30 minutes Exam Vital Signs (past 8 hours): Oxygen Delivery Method Room Air Oxygen Flow Rate 0 Narrative Exam Narrative: Pleasant gentleman in no obvious distress Lungs: Clear to auscultation Patient in an [place]:, anterior dressing dry Cardiac exam: Regular rate and rhythm normal S1-S2 Abdomen: Soft and not Extremities: No edema Objective ECG Impression: Labs Result Diagrams: 06/21/20 04:40 06/23/20 04:30 [facility] Medical History (Updated 06/20/20 @ 02:39 by SUGAR Moura-VONNIE) Chronic migraine without aura, with status migrainosus Fibromyalgia GERD (gastroesophageal reflux disease) Hemicrania continua Hypothyroidism (acquired) Surgical History (Updated 06/20/20 @ 02:39 by SUGAR Moura-VONNIE) History of carpal tunnel surgery History of fusion of cervical spine History of fusion of cervical spine History of heart artery stent History of hernia repair History of laminectomy History of lumbar fusion S/P TURP (status post transurethral resection of prostate) Family History (Updated 06/20/20 @ 02:40 by JAMIE Moura) Father CAD (coronary artery disease) Mother Congestive heart failure Sister Cancer Social History household members: friend(s) Smoking Status: Never smoker Discharge Assessment & Plan Assessment and Plan Assessment: Impression 1. Aspiration pneumonia 2. Partial vocal cord paralysis 3. Hypothyroidism 4. GERD Plan of Treatment: Discharge home Outpatient speech consultation Follow-up with PCP next week Discharge Plan Discharge Plan Patient Disposition: Home Discharge orders & Medications Prescriptions: New dexamethasone sodium phosphate 10 mg/mL Solution 6 mg PO BID 2 Days Qty: 2.4 RF: 0 tramadol [Ultram] 50 mg tablet 50 mg PO TID PRN (Reason: pain) Qty: 30 RF: 0 Continued levothyroxine [Synthroid] 25 MCG tablet 25 mcg PO QDAY Qty: 0 RF: 0 rosuvastatin [Crestor] 20 MG tablet 20 mg PO QDAY Qty: 0 RF: 0 naratriptan 2.5 mg tablet 2.5 mg PO .COMPLEX PRN (Reason: migraine headache) Qty: 27 RF: 3 Lyrica 200 mg capsule 200 mg PO BID Qty: 180 RF: 2 methocarbamol 500 mg Tablet 500 mg PO TID PRN (Reason: Muscle Spasm) RF: 0 omeprazole 10 mg Capsule,Delayed Release(Dr/Ec) 10 mg PO DAILY RF: 0 alfuzosin 10 mg Tablet Extended Release 24 Hr 10 mg PO DAILY RF: 0 hydrocodone-acetaminophen 10-325 mg Tablet 1 tab PO Q4-6H PRN (Reason: Pain (Scale Score 4-6)) RF: 0 tramadol 50 mg tablet 25 mg PO Q6H PRN (Reason: pain) Qty: 50 RF: 0 Follow up/Referrals: Lashae Holt PA-C [Primary Care Provider] - Discharge Health Status Health Concerns: Needs outpatient Speech Pathology referral Multidrug resistant organism: No MDRO Diet/Activity/Treatments Diet comment: mechanical soft/ nectar thick liquids Activity: as tolerated Visit Report/Discharge Packet Instructions: Soft Diet, DI for Aspiration Pneumonia, Dexamethasone, Tramadol, DI for Esophageal Dysphagia Discharge Data Primary Care Provider: Lashae Holt
== END 2020-06-25 12:10 | disposition home or self-care (01) | DRG 205 ==
LOC: ED 19:11 → AC 22:04
PROVIDERS: Internal Medicine; Admitting Provider Nurse Practitioner Family; Emergency Provider Emergency Medicine; Family Provider Registered Nurse; PCP Student in an Organized Health Care Education/Training Program; Referring Provider Emergency Medicine; Visit Provider Nurse Practitioner Family
DX: J95.89 Other postprocedural complications and disorders of respiratory system, not elsewhere classified (principal); J69.0 Pneumonitis due to inhalation of food and vomit; J96.01 Acute respiratory failure with hypoxia; J38.01 Paralysis of vocal cords and larynx, unilateral; I25.10 Atherosclerotic heart disease of native coronary artery without angina pectoris; Z95.818 Presence of other cardiac implants and grafts; E03.9 Hypothyroidism, unspecified; K21.9 Gastro-esophageal reflux disease without esophagitis; M79.7 Fibromyalgia; R13.13 Dysphagia, pharyngeal phase; Z98.1 Arthrodesis status; E78.5 Hyperlipidemia, unspecified; G43.909 Migraine, unspecified, not intractable, without status migrainosus; Z20.822 Contact with and (suspected) exposure to COVID-19
CPT/HCPCS: 36415; 36600; 71045; 71275; 74230; 80048; 80053; 80076; 81003; 82550; 82553; 82805; 82962; 83605; 83735; 83880; 84100; 84145; 84443; 84484; 85025; 85379; 85610; 86140; 87040; 87633; 87635; 92526; 92611; 96361; 96365; 99284; C9803; C9113; J1100; J1170; J1630; J2060; J2543; Q9967

== ENCOUNTER → 2020-07-16 14:26 | Outpatient (CLI) | payer MEDICARE, OTHER, SELFPAY ==
[2020-06-19 22:47] VITALS: BMI 26.1
--- NOTE | 2020-07-16 14:29 | DI.RAD.S_ITS ---
PROCEDURE: XR CHEST 2V INDICATIONS: ASPIRATION PNEUMONIA OF RT L LOBE TECHNIQUE: 2 views of the chest were acquired. COMPARISON: [facility], CT, CT ANGIO CHEST PE PROTOCOL, 06/19/2020, 22:43. . [facility], CR, XR CHEST 1V, 06/19/2020, 19:30. FINDINGS: Surgical changes and devices: Cervical spine fixation hardware. Opacities involving the right lung base have resolved since 06/19/20. Elsewhere, no focal consolidation. No pleural effusions or pneumothorax. Mediastinum: Mediastinal contours are normal. Heart size is normal. Bones and chest wall: Unchanged mild anterior wedging of the lower thoracic/upper lumbar vertebral bodies. Bilateral shoulder joint degeneration. IMPRESSION: Interval resolution of right lung base opacities since the prior study. Scattered subsegmental atelectasis and/or scarring. No new consolidation. Dictated by: Bola Lowry M.D. on 07/16/2020 at 15:51 Approved by: Bola Lowry M.D. on 07/16/2020 at 15:53
== END ==
PROVIDERS: Family Provider Internal Medicine; PCP Student in an Organized Health Care Education/Training Program; Referring Provider Student in an Organized Health Care Education/Training Program; Visit Provider Student in an Organized Health Care Education/Training Program
DX: J69.0 Pneumonitis due to inhalation of food and vomit (principal); J98.11 Atelectasis
CPT/HCPCS: 71046

== ENCOUNTER → 2020-07-22 20:06 | Outpatient (ROUT) | payer MEDICARE, OTHER, SELFPAY ==
[2020-06-19 22:47] VITALS: BMI 26.1
[2020-07-22 20:12] LABS: Hematocrit 39.5 % (41-53); Hemoglobin 13.1 g/dL (13.5-17.5); Mean Corpuscular HGB Conc 33.2 % (30-36); Mean Corpuscular Volume 93.5 fL (80-100); Platelet Count 182 X10^3/uL (150-400); Red Blood Cell Count 4.23 X10^6/uL (4.5-5.9); Red Cell Distribution Width 14.4 % (11.6-14.8); White Blood Cell Count 4.4 X10^3/uL (4.5-11.0)
[2020-07-22 20:20] LABS: Alanine Aminotransferase 29 IU/L (<50); Albumin 3.8 g/dL (3.5-5.0); Albumin Globulin Ratio 1.5 (1.0-2.8); Alkaline Phosphatase 104 U/L (38-126); Aspartate Aminotransferase 42 IU/L (17-59); BUN Creatinine Ratio 20.7 (6-22); Bilirubin Total 0.8 mg/dL (0.2-1.3); Blood Urea Nitrogen 18 mg/dL (9-20); Calcium 9.4 mg/dL (8.4-10.2); Carbon Dioxide 28 mmol/L (22-32); Chloride 104 mmol/L (98-107); Cholesterol 174 mg/dL (140-199); Estimated Glomerular Filt Rate > 60.0 mL/min (>60); Globulin 2.5 g/dL (1.7-4.1); Glucose 92 mg/dL (80-110); HDL Cholesterol 42 mg/dL (40-60); HEMOLYSIS 26 (0-50); LDL Cholesterol Calculated 107 mg/dL (<100); Potassium 4.6 mmol/L (3.4-5.1); Sodium 137 mmol/L (137-145); Total Protein 6.3 g/dL (6.3-8.2); Triglycerides 126 mg/dL (35-150)
== END ==
PROVIDERS: Family Provider Internal Medicine; PCP Student in an Organized Health Care Education/Training Program; Visit Provider Student in an Organized Health Care Education/Training Program
DX: I25.10 Atherosclerotic heart disease of native coronary artery without angina pectoris (principal); I10 Essential (primary) hypertension; E78.5 Hyperlipidemia, unspecified; N40.1 Benign prostatic hyperplasia with lower urinary tract symptoms
CPT/HCPCS: 80053; 80061; 85027

== ENCOUNTER → 2020-10-16 13:08 | Outpatient (CLI) | payer MEDICARE, OTHER, SELFPAY ==
[2020-06-19 22:47] VITALS: BMI 26.1
--- NOTE | 2020-10-16 | DI.RAD.S_ITS ---
PROCEDURE: [place] BARIUM SWALLOW W SPEECH INDICATIONS: Dysphagia, unspecified COMPARISON: TECHNIQUE: Examination was conducted in conjunction with speech pathology per standard protocol. In the lateral projection, filming was performed of the patient swallowing. AP projection filming may also be performed with patient swallowing. COMPARISON: [facility], , [place] BARIUM SWALLOW W SPEECH, 06/23/2020, 14:57. FINDINGS: Postsurgical changes related to ACDF from C3-C5. Function: The oral preparatory phase appears normal, with proper containment. The subsequent oral propulsive phase, pharyngeal phase, and esophageal phase of swallowing also appear normal with all proffered substances. No laryngotracheal penetration or aspiration. There is mild residue and occasional flash laryngeal penetration with thin liquid barium consistencies. Morphology: No cricopharyngeal bar is identified. No cervical esophageal webs. No Zenker's diverticulum. No strictures. IMPRESSION: Occasional flash laryngeal penetration. Dictated by: Bola Lowry M.D. on 10/16/2020 at 14:19 Approved by: Bola Lowry M.D. on 10/16/2020 at 14:20
--- NOTE | 2020-10-17 16:52 | ST.SWALLOW ---
Visit Care Team Role Provider Type Lashae Holt PA-C Primary Care Provider Non-Staff Specialty: Internal Medicine Address: [address] [place] [address], [id number] Email: Guanako Mario MD Attending Provider Physician Family Provider Referring Provider Specialty: Internal Medicine Address: [address] [place] [address], [id number] Email: ST Modified Barium Swallow Study SENIOR PLANNING MANAGER Modified Barium Swallow Study Start: 10/16/20 16:40 Freq: Status: Active Protocol: Document 10/16/20 16:44 LNK (Rec: 10/16/20 17:10 [id number]) Modified Barium Swallow Study Total Time Visit Start Time 13:30 Visit Stop Time 14:00 Total Visit Minutes [address] Mario Reason for Referral hx of dysphaia Setting Setting Outpatient Care Patient Information Identification Type Name,Date of Patient History The pt is a 75-yr-old male who has been seen by Ciara Suarez, CINDY for dysphagia therapy. Per her recent assessment of improvement, Ms. Suarez reported The pt continues with excellent progress toward goals, able to tolerate most regular textures and thin liquids with occasional coughing and sticking sensation with dry crumbly foods and textures like skins of fruits. He is using compensatory strategies effectively and independently. He appears to be back to his baseline prior to recent ACDF. The pt does have hx of a previous ACDF surgery 25 yrs ago, after which he experienced these current challenges. Follow-up Modified Barium Swallow Study is recommended for assessment of current function, to r/o silent aspiration, which was present at SOC, and to guide POC. The pt is in agreement with this plan. Subjective Observations pt was accompanied by his . He was seated in the fluoroscopy chair. Instructions and procedures were reviewed with the pt, who agreed to proceed. Patient Positioning Position View Lateral Imaging Lateral View Textures Administered Trials Presented Thin Liquid via Spoon,Thin Liquid via Cup,Pudding Thick Liquid via Spoon,Regular Textures,Barium Tablet Oral Phase Source: MBSIMP (TM) (C) Bolus Specific Scoring Grid Lip Closure WFL Additional Oral Phase Observations Limited oral cavity view per radiologist; however, observation during the MBSS trials and OME noted structures to be WFL for strength and mastication. Pharyngeal Phase Source: MBSIMP (TM) (C) Bolus Specific Scoring Grid Delayed Initiation of Pharyngeal Swallow No Soft Palate Elevation No Impairment (WNL) Tongue Base Strength/Range of Motion Mild Impairment Residue Along the Tongue Base Yes: Trace to minimal Clearance of Residue Along Tongue Base WFL Laryngeal Elevation Moderate Impairment Anterior Hyoid Movement Moderate Impairment Epiglottic Range of Motion Moderate Impairment Vallecular Residue Yes: Trace to minimal with exception of cookie trial - significant residue Clearance of Vallecular Residue WFL Laryngeal Vestibular Closure Minimal Impairment Pharyngeal Stripping Wave Moderate Impairment Posterior Pharyngeal Wall Residue No Upper Esophageal Sphincter Opening WFL Residue in the Pyriform Sinuses Yes Clearance of Residue in the Pyriform Mild Impairment Sinuses Esophageal Clearance Upright Position Minimal Impairment Pharyngoesophageal Backflow Observed No Additional Pharyngeal Phase Observations No delay of the swallow was observed. Laryngeal elevation was moderately impaired as the laryngeal structure elevated but there was minimal -to-no forward motion of the larynx. The movement of they hyoid was was reduced, which impacted the epiglottal movement. For small bolus sizes (i.e.teaspoonsful, and dry swallows after trial swallows) the epiglottis did not invert or was partially inverted with the tip of the epiglottis against the posterior pharyngeal wall. For large bolus sizes (i.e., consecutive swallows, pudding thick and cookie trials), there was full inversion of the epiglottis. [id number] pharyngeal pooling was observed. However, during the cookie trial, there was a large amount of residue, needing 3 subsequent swallows and 2 water swallows to clear. Pt noted that dry or crumbly foods are the most difficult to swallow. No laryngeal penetration or aspiration were observed during the MBSS. The constriction of the posterior pharyngeal wall was moderately reduced, affecting bolus control. A/P View Clinical Impressions Dysphagia Type mild pharyngeal dysphagia Findings The pt presented with mild pharyngeal phase dysphagia characterized by reduced hyolaryngeal elevation, inconsistent epiglottal inversion and decreased pharyngeal constriction. However, overall the pt has made remarkable progress in his dysphagia therapy program. Initially, the pt was only able to tolerate pureed texture and honey thick liquids. Through therapy, he is currently able to safely tolerate regular texture and thin liquids. Pt continues to need to use the supraglottic swallow strategy, especially with small bolus sizes. He is aware of the need to continue to use safe swallow strategies and to continue his exercise program. Rehabilitation Potential Excellent Patient Appropriate for Therapy Yes: Therapy follow up with SENIOR PLANNING MANAGER to review MBSS and determine POC Recommendations Diet Liquids Order Thin Diet Order Regular Medication Recommendation As Tolerated Aspiration Precautions Recommended Precautions Upright at 90 Degrees, Effortful Swallow Treatment Plan Therapy Recommendations Outpatient Speech Therapy, Compensatory Strategy Education Recommended Referrals ENT Consult Additional Recommended Referrals Pt c/o voice getting more hoarse progressively Short Term Goals Pt will follow up with his SENIOR PLANNING MANAGER Ciara Suarez to review video of MBSS and to determine plans for continued therapy.
--- NOTE | 2020-10-17 16:55 | ST.OPIE ---
Visit Care Team Role Provider Type Lashae Holt PA-C Primary Care Provider Non-Staff Specialty: Internal Medicine Address: [address] [place] [address], [id number] Email: [email or web address] Guanako Mario MD Attending Provider Physician Family Provider Referring Provider Specialty: Internal Medicine Address: [address] [place] [address], [id number] Email: [email or web address] Speech-Language Pathology Initial Evaluation SPECIALIST FIELD ENGINEER Modified Barium Swallow Study Start: 10/16/20 16:40 Freq: Status: Active Protocol: Document 10/16/20 16:44 LNK (Rec: 10/16/20 17:10 [id number]) Modified Barium Swallow Study Total Time Visit Start Time 13:30 Visit Stop Time 14:00 Total Visit Minutes [address] Mario Reason for Referral hx of dysphaia Setting Setting Outpatient Care Patient Information Identification Type Name,Date of Patient History The pt is a 75-yr-old male who has been seen by Ciara Suarez, CINDY for dysphagia therapy. Per her recent assessment of improvement, Erick Harvey reported The pt continues with excellent progress toward goals, able to tolerate most regular textures and thin liquids with occasional coughing and sticking sensation with dry crumbly foods and textures like skins of fruits. He is using compensatory strategies effectively and independently. He appears to be back to his baseline prior to recent ACDF. The pt does have hx of a previous ACDF surgery 25 yrs ago, after which he experienced these current challenges. Follow-up Modified Barium Swallow Study is recommended for assessment of current function, to r/o silent aspiration, which was present at SOC, and to guide POC. The pt is in agreement with this plan. Subjective Observations pt was accompanied by his . He was seated in the fluoroscopy chair. Instructions and procedures were reviewed with the pt, who agreed to proceed. Patient Positioning Position View Lateral Imaging Lateral View Textures Administered Trials Presented Thin Liquid via Spoon,Thin Liquid via Cup,Pudding Thick Liquid via Spoon,Regular Textures,Barium Tablet Oral Phase Source: MBSIMP (TM) (C) Bolus Specific Scoring Grid Lip Closure WFL Additional Oral Phase Observations Limited oral cavity view per radiologist; however, observation during the MBSS trials and OME noted structures to be WFL for strength and mastication. Pharyngeal Phase Source: MBSIMP (TM) (C) Bolus Specific Scoring Grid Delayed Initiation of Pharyngeal Swallow No Soft Palate Elevation No Impairment (WNL) Tongue Base Strength/Range of Motion Mild Impairment Residue Along the Tongue Base Yes: Trace to minimal Clearance of Residue Along Tongue Base WFL Laryngeal Elevation Moderate Impairment Anterior Hyoid Movement Moderate Impairment Epiglottic Range of Motion Moderate Impairment Vallecular Residue Yes: Trace to minimal with exception of cookie trial - significant residue Clearance of Vallecular Residue WFL Laryngeal Vestibular Closure Minimal Impairment Pharyngeal Stripping Wave Moderate Impairment Posterior Pharyngeal Wall Residue No Upper Esophageal Sphincter Opening WFL Residue in the Pyriform Sinuses Yes Clearance of Residue in the Pyriform Mild Impairment Sinuses Esophageal Clearance Upright Position Minimal Impairment Pharyngoesophageal Backflow Observed No Additional Pharyngeal Phase Observations No delay of the swallow was observed. Laryngeal elevation was moderately impaired as the laryngeal structure elevated but there was minimal -to-no forward motion of the larynx. The movement of they hyoid was was reduced, which impacted the epiglottal movement. For smal bolus sizes (i.e.teaspoonsful, and dry swallows after trial swallows) the epiglottis did not invert or was partially inverted with the tip of the epiglottis against the posterior pharyngeal wall. For large bolus sizes (i.e., consecutive swallows, pudding thick and cookie trials), there was full inversion of the epiglottis. Csiri-[id number] pharyngeal pooling was observed. However, during the cookie trial, there was a large amount of residue, needing 3 subsequent swallows and 2 water swallows to clear. Pt noted that dry or crumbly foods are the most difficult to swallow. No laryngeal penetration or aspiration were observed during the MBSS. The constriction of the posterior pharyngeal wall was moderately reduced, affecting bolus control. A/P View Clinical Impressions Dysphagia Type Mild pharyngeal dysphagia Findings The pt presented with mild pharyngeal phase dysphagia characterized by reduced hyolaryngeal elevation, inconsistent epiglottal inversion and decreased pharyngeal constriction. However, overall the pt has made remarkable progress in his dysphagia therapy program. Initially, the pt was only able to tolerate pureed texture and honey thick liquids. Through therapy, he is currently able to safely tolerate regular texture and thin liquids. Pt continues to need to use the supraglottic swallow strategy, especially with small bolus sizes. He is aware of the need to continue to use safe swallow strategies and to continue his exercise program. Rehabilitation Potential Excellent Patient Appropriate for Therapy Yes: Therapy follow up with SPECIALIST FIELD ENGINEER to review MBSS and determine POC Recommended Referrals ENT Consult Additional Recommended Referrals Pt c/o voice getting more hoarse progressively Short Term Goals Pt will follow up with his SPECIALIST FIELD ENGINEER Ciara Suarez to review video of MBSS and to determine plans for continued therapy. Please sign, date and return plan of care.
== END ==
PROVIDERS: Family Provider Internal Medicine; PCP Student in an Organized Health Care Education/Training Program; Referring Provider Internal Medicine; Visit Provider Internal Medicine
DX: R13.10 Dysphagia, unspecified (principal)
CPT/HCPCS: 74230; 92611

== ENCOUNTER 2020-11-10 10:30 | Outpatient (RCR) | payer MEDICARE, OTHER, SELFPAY ==
[2020-06-19 22:47] VITALS: BMI 26.1
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
--- NOTE | 2020-08-14 15:39 | PT.OPPOC ---
Physical, Occupational & Speech Therapy At [facility] Current Diagnoses Spinal stenosis, cervical region (08/14/20) Visit Care Team Role Provider Type Lashae Holt PA-C Primary Care Provider Non-Staff Specialty: Internal Medicine Address: [address] [place] [address], [id number] Email: [email or web address] Guanako Mario MD Family Provider Physician Specialty: Internal Medicine Address: [address] [place] [address], [id number] Email: [email or web address] Kathy Esteves MD Attending Provider Non-Staff Referring Provider Specialty: Medical Address: [address] [place] [address], [facility] Email: Plan Of Care PT-OP-T Assessment and Plan Start: 08/13/20 07:53 Freq: Status: Active Protocol: Document 08/14/20 10:32 MB (Rec: 08/14/20 15:38 MB [id number]) Physical Therapy Assessment Rehab Potential Rehabilitation Potential Fair Evaluation Complexity Number of Personal Factors/Comorbidities 1-2 Number of Body Systems Impaired 3 Clinical Presentation at Evaluation Evolving Impairments Impairments Balance,Coordination,Gait,Pain ,Posture,ROM,Sensation,Soft Tissue Mobility,Strength Other Impairments Personal factors include memory impairment, [place]. Body systems affected include musculoskeletal, metabolic, cardiac, neurological/ neuromuscular. Other Concerns Fall Risk Yes Goals 5 Group Home Goal (LTG) Pt will perform WNLs on a standardized balance test to decrease fall risk by 10/14/20. LTG Duration 8 weeks 4 Greenskeeper Supervisor Goal (LTG) Pt will present with improved and equal cervical and thoracic rotation to improve weight shifting and head turns with gait and driving by 10/14. LTG Duration 8 weeks 3 Group Home Goal (LTG) Pt will perform progressive HEP with I including flexibility, breathing, pelvic realignment, relaxation, core and shoulder strengthening to improve overall posture, range of motion and pain by . LTG Duration 8 weeks 2 Greenskeeper Supervisor Goal (LTG) Pt will present with an improved NDI score of no more than 20% impairment to reflect improved neck and headache pain with ADLs by 10/14/20. LTG Duration 8 weeks 1 Group Home Goal (LTG) Pt will present with an improved QuickDASH score of no more than 20% impairment to reflect improved UE function and decreased pain by 10/14/20. LTG Duration 8 weeks Assessment Summary Assessment Pt is a 75 y/o male presenting with chronic headaches, right scapular and SI pain and right hand tingling s/p two cervical fusions, one lumbar fusion, SI injection and B carpal tunnel surgeries. Pt reports a history of many concussions when he was younger d/t sports. He had a bad fall off a ladder with concussion and rib fractures in the more recent history. He also had what sounds like a frontal hematoma from the fall and thoracic spina fracture. Pt presents with limitations in cervical, shoulder and thoracic mobility. He presents with UE weaknees and postural changes. Rapid pronation and supination is difficult B today as well as finger to nose but no dysmetric movement noted. Right thoracic rotation in sitting is mildly greater than the left with limitations to both sides. Pupil constriction is equally delayed both eyes. accompanies pt and she and pt report that he has had some cognitive changes (delayed responding and memory impairment), especially after the most recent fall and concussion and surgeries. Fibromyalgia and multi-area pain, cognitive changes and post-surgical changes are barriers to PT. Pt will benefit from PT to improve posture, range, flexibility, balance and pain. Physical Therapy Plan Frequency and Duration Frequency of Treatment 2x/Week Duration of Treatment 8 weeks Plan of Care Start Date 08/14/20 Plan of Care End Date 10/14/20 Therapeutic Interventions Therapeutic Interventions Balance Training,Canalithic Repositioning,Gait Training, Home Exercise Program,Joint Mobilizations,Manual Therapy, Neuromuscular Re-education, Patient/Caregiver Education, Self-Care/Home Management, Sensory Integration,Soft Tissue Mobilization, Therapeutic Activities, Therapeutic Exercises Modalities Cold Pack/Ice Massage,Hot Packs Next Visit Focus/Plan Next Note Type Treatment Note Next Visit Plan Initiate Counterstrain Plan of Care Dates Plan of Care Start Date 08/14/20 Plan of Care End Date 10/14/20 Electronically Signed by: Radha Rodriguez PT 08/14/20 1539 Please Sign and Return: I have reviewed this Plan of Care and certify that the skilled therapy services above are required to meet the patient?s needs. Physician Signature Date Printed Name and Credentials Clinical Instructor Signature Printed Name and Credentials
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
--- NOTE | 2020-09-19 12:20 | PT.OPPOC ---
Physical, Occupational & Speech Therapy At [facility] Current Diagnoses Spinal stenosis, cervical region (09/19/20) Visit Care Team Role Provider Type Lashae Holt PA-C Primary Care Provider Non-Staff Specialty: Internal Medicine Address: [address] [place] [address], [id number] Email: [email or web address] Guanako Mario MD Family Provider Physician Specialty: Internal Medicine Address: [address] [place] [address], [id number] Email: [email or web address] Kathy Esteves MD Attending Provider Non-Staff Referring Provider Specialty: Medical Address: [address] [place] [address], [facility] Email: Plan Of Care PT-OP-T Assessment and Plan Start: 08/13/20 07:53 Freq: Status: Active Protocol: Document 09/19/20 10:33 MB (Rec: 09/19/20 11:09 MB [id number]) Physical Therapy Assessment Rehab Potential Rehabilitation Potential Fair Evaluation Complexity Number of Personal Factors/Comorbidities 1-2 Number of Body Systems Impaired 3 Clinical Presentation at Evaluation Evolving Impairments Impairments Balance,Coordination,Gait,Pain ,Posture,ROM,Sensation,Soft Tissue Mobility,Strength Other Impairments Personal factors include memory impairment, [place]. Body systems affected include musculoskeletal, metabolic, cardiac, neurological/ neuromuscular. Other Concerns Fall Risk Yes Goals 5 Mcc Goal (LTG) Pt will perform WNLs on a standardized balance test to decrease fall risk by 10/21/20. 09/19/20: Deferred checking today in order to review pelvic realignment exercises LTG Duration 5 weeks 4 Search Planner Goal (LTG) Pt will present with improved and equal cervical and thoracic rotation to improve weight shifting and head turns with gait and driving by . 09/19/20: AROM right shoulder flexion and abduction is 80% left range; left cervical rotation is 90% right range; left thoracic rotation is 65% right range LTG Duration 5 weeks 3 Search Planner Goal (LTG) Pt will perform progressive HEP with I including flexibility, breathing, pelvic realignment, relaxation, core and shoulder strengthening to improve overall posture, range of motion and pain by 10/21/20. 09/19/20: Pt is performing pelvic realignment exercises, diaphragm breathing LTG Duration 5 weeks 2 Mcc Goal (LTG) Pt will present with an improved NDI score of no more than 30% impairment to reflect improved neck and headache pain with ADLs by 10/21/20. NDI score reflects 38% impairment LTG Duration 5 weeks 1 Mcc Goal (LTG) Pt will present with an improved QuickDASH score of no more than 30% impairment to reflect improved UE function and decreased pain by 10/21/20. 09/19/20: QuickDASH score reflects 43.18% impairment LTG Duration 5 weeks Assessment Summary Assessment Pt's clinical presentation is evolving and complicated in setting of cervical and lumbar changes, recent cervical surgery, right UE symptoms and decreased right shoulder ROM, decreased cervical and thoracic rotation and headaches. Also, his right LE symptoms have exacerbated after Treadmill Test for his heart. He stopped sleeping on his wedge for GERD to help the LBP and then reports reflux. He has progressed with exercises and will benefit from completing PT course to advance exercises and manual interventions. Physical Therapy Plan Frequency and Duration Frequency of Treatment 2x/Week Duration of Treatment 8 weeks Plan of Care Start Date 09/19/20 Plan of Care End Date 10/21/20 Therapeutic Interventions Therapeutic Interventions Balance Training,Canalithic Repositioning,Gait Training, Home Exercise Program,Joint Mobilizations,Manual Therapy, Neuromuscular Re-education, Patient/Caregiver Education, Self-Care/Home Management, Sensory Integration,Soft Tissue Mobilization, Therapeutic Activities, Therapeutic Exercises Modalities Cold Pack/Ice Massage,Hot Packs Next Visit Focus/Plan Next Note Type Treatment Note Next Visit Plan Thoracic mobility, pect stretching in hook lying, ? pool noodle, ongoing Counterstrain, gentle core work with head supported Plan of Care Dates Plan of Care Start Date 09/19/20 Plan of Care End Date 10/21/20 Electronically Signed by: Radha Rodriguez, PT 09/19/20 [id number] Please Sign and Return: I have reviewed this Plan of Care and certify that the skilled therapy services above are required to meet the patient?s needs. Physician Signature Date Printed Name and Credentials Clinical Instructor Signature Printed Name and Credentials
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
--- NOTE | 2020-10-29 09:54 | PT.OPPOC ---
Physical, Occupational & Speech Therapy At [facility] Current Diagnoses Spinal stenosis, cervical region (10/29/20) Visit Care Team Role Provider Type Lashae Holt PA-C Primary Care Provider Non-Staff Specialty: Internal Medicine Address: [address] [place] [address], [id number] Email: [email or web address] Guanako Mario MD Family Provider Physician Specialty: Internal Medicine Address: [address] [place] [address], [id number] Email: [email or web address] Kathy Esteves MD Attending Provider Non-Staff Referring Provider Specialty: Medical Address: [address] [place] [address], [facility] Email: Plan Of Care PT-OP-T Assessment and Plan Start: 08/13/20 07:53 Freq: Status: Active Protocol: Document 10/29/20 07:34 MB (Rec: 10/29/20 08:15 MB [id number]) Physical Therapy Assessment Rehab Potential Rehabilitation Potential Fair Evaluation Complexity Number of Personal Factors/Comorbidities 1-2 Number of Body Systems Impaired 3 Clinical Presentation at Evaluation Evolving Impairments Impairments Balance,Coordination,Gait,Pain ,Posture,ROM,Sensation,Soft Tissue Mobility,Strength Other Impairments Personal factors include memory impairment, [place]. Body systems affected include musculoskeletal, metabolic, cardiac, neurological/ neuromuscular. Other Concerns Fall Risk Yes Goals 5 Nursing Home Goal (LTG) Pt will perform WNLs on a standardized balance test to decrease fall risk by 11/10/20. 10/29/20: Deferred checking today in order to review pelvic realignment exercises LTG Duration 3 weeks 4 Nursing Home Goal (LTG) Pt will present with improved and equal cervical and thoracic rotation to improve weight shifting and head turns with gait and driving by 11/10. 09/19/20: AROM right shoulder flexion and abduction is 80% left range; left cervical rotation is 90% right range; left thoracic rotation is 65% right range LTG Duration 3 weeks 3 Tractor Mechanic Goal (LTG) Pt will perform progressive HEP with I including flexibility, breathing, pelvic realignment, relaxation, core and shoulder strengthening to improve overall posture, range of motion and pain by . 10/29/20: Pt is performing pelvic realignment exercises, diaphragm breathing LTG Duration 3 weeks 2 Nursing Home Goal (LTG) Pt will present with an improved NDI score of no more than 30% impairment to reflect improved neck and headache pain with ADLs by 11/10/20. 10/29/20: Deferred checking this in order to treat patient LTG Duration 3 weeks 1 Nursing Home Goal (LTG) Pt will present with an improved QuickDASH score of no more than 30% impairment to reflect improved UE function and decreased pain by 11/10/20. 09/19/20: QuickDASH score reflects 43.18% impairment LTG Duration 3 weeks Assessment Summary Assessment Pt con't to respond well to manual treatment. Anticipate one more manual PT treatment and exercise review and then d /c the following treatment. Pt has another epidural for his back 11/06/20. Physical Therapy Plan Frequency and Duration Frequency of Treatment 1x/Week Duration of Treatment 3 weeks Plan of Care Start Date 10/29/20 Plan of Care End Date 11/10/20 Therapeutic Interventions Therapeutic Interventions Balance Training,Canalithic Repositioning,Gait Training, Home Exercise Program,Joint Mobilizations,Manual Therapy, Neuromuscular Re-education, Patient/Caregiver Education, Self-Care/Home Management, Sensory Integration,Soft Tissue Mobilization, Therapeutic Activities, Therapeutic Exercises Modalities Cold Pack/Ice Massage,Hot Packs Next Visit Focus/Plan Next Note Type Treatment Note Next Visit Plan Counterstrain and review HEP Plan of Care Dates Plan of Care Start Date 10/29/20 Plan of Care End Date 11/10/20 Electronically Signed by: Radha Rodriguez PT 10/29/20 [id number] Please Sign and Return: I have reviewed this Plan of Care and certify that the skilled therapy services above are required to meet the patient?s needs. Physician Signature Date Printed Name and Credentials Clinical Instructor Signature Printed Name and Credentials
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
== END 2020-11-11 08:42 | disposition home or self-care (01) ==
LOC: PHYS 10:30
PROVIDERS: Family Provider Internal Medicine; PCP Student in an Organized Health Care Education/Training Program; Referring Provider Neurological Surgery; Visit Provider Neurological Surgery
DX: M48.02 Spinal stenosis, cervical region (principal)
CPT/HCPCS: 97110; 97140; 97162; 97535

== ENCOUNTER 2020-12-09 15:30 | Outpatient (RCR) | payer MEDICARE, OTHER, SELFPAY ==
[2020-06-19 22:47] VITALS: BMI 26.1
--- NOTE | 2020-07-02 17:30 | ST.OPIE ---
Visit Care Team Role Provider Type Guanako Mario MD Attending Provider Physician Family Provider Primary Care Provider Referring Provider Specialty: Internal Medicine Address: [address] [place] [address], [id number] Email: [email or web address] Speech[facility] Initial Evaluation SANITATION SUPERINTENDENT Clinical Swallow Evaluation Start: 07/02/20 18:02 Freq: Status: Active Protocol: Document 07/02/20 18:02 SONIA (Rec: 07/02/20 18:03 SONIA [email or web address]) Clinical Swallow Evaluation Session Time Visit Start Time 13:30 Visit Stop Time 14:30 Total Visit Minutes 60 Visit Information Visit Number Initial Evaluation Plan of Care Dates 07/02/20 - 09/29/20 Insurance Information Medicare Referral Referring Provider Dr. Guanako Mario Reason for Referral Dysphagia Setting Assessment Location Outpatient Care Visit Type Note Type Initial evaluation Next Note Type Next Note Type Treatment Note Patient Information Identification Type Name,ID Card History The pt is a 75-yr-old male who is familiar to this SANITATION SUPERINTENDENT from recent hospitalization, during which MBSS was performed x2. The pt was admitted to acute care after experiencing shortness of breath 3 days after discharge from [facility] after having ACDF surgery at -5/C-6 (06/17/20). Upon admit he complained of slight difficulty swallowing liquids and clearing secretions from airway. MBS was ordered and completed , revealing no epiglottic inversion, swelling of the pharyngeal wall, and multiple episodes of dara aspiration. The pt was made NPO and swelling was treated with steroids over the weekend. Repeat MBS was administered and revealed reduced swelling and improvement in swallow but continued absence of epiglottic inversion, reduced pharyngeal stripping wave, and reduced UES extension and duration, resulting in significant pharyngeal residue that did not clear with multiple swallows. The pt was placed on pureed diet with NTLs, and swallow exercises were initiated during acute care. During hospital stay, the pt also exhibited mildly rough vocal quality, which he stated was abnormal. ENT Consultation was obtained, and flexible laryngoscopy administered with the following findings: Left vocal cord paresis, presumably related to remote cervical fusion on the left 25 years ago. Currently the right vocal cord exhibits normal movement . Subjective Observations The pt arrived on time accompanied by his , who was present and participatory throughout the session. The pt has been compliant with pureed diet and NTLs. He and his both reported the pt' s voice was back to baseline. Reported by Patient Current Diet Pureed,[place] thick liquids Baseline Feeding Method Independent in self-feeding Patient Questionnaire No Objective Assessment Mental Status Alert,Responsive,Cooperative Comment Oral peripheral exam was administered during MBSS and found to be WNL. Food and Liquid Trials Position During Assessment Upright (90 degrees) Liquids Trialed Thin,[place] Solids Trialed Puree Administration Type Controlled cup sip,Self- feeding Oral Impairment Within normal limits Pharyngeal Impairment Moderately impaired Pharyngeal Phase Comments Trained pt in super- supraglottic swallow maneuver with trials of nectar-thick and thin liquids and applesauce. Pt performed maneuver as directed. No overt s/sx of aspiration were observed with all trials; however, changes in vocal resonance were observed with applesauce, indicating ongoing significant pharyngeal residue that does not fully clear with subsequent swallows . Trials of more advanced solids were withheld for pt safety. Skilled education and feedback was provided with recommendation to continue pureed diet texture. Upgrade to thin liquid with use of super-supraglottic swallow was recommended only in limited amounts, with the majority of liquids to be NTLs (25/75% of intake, respectively). The pt verbalized understanding and agreement. Questions were answered RE thickening of liquids and variety of intake/ nutrition in pureed form to the best of the SANITATION SUPERINTENDENT's ability. Recommend additional nutrition questions be addressed with [employer]. Fatigue/Endurance Endurance WNL Strategies Attempted Super-supraglottic swallow Response/Comments Improved clearance and airway protection; pharyngeal residue remains, increasing pt's risk of aspiration. Findings Swallowing Function Pharyngeal phase dysphagia Severity of Swallow Impairment Moderately impaired Contributing Factors to Swallow Reduced laryngeal excursion, Impairment Excessive pharyngeal residue Prognosis Good Based on Cognitive status,Comorbidities ,Duration of symptoms/severity Impact on Safety and Functioning Risk for aspiration Recommendations Instrumental Assessment No Swallowing Treatment Yes Frequency 1x/wk Duration 8-12 wks Recommended Solids Puree Recommended Liquids [place] Other Recommendations Limited amounts of thin liquid ok with use of super- supraglottic swallow maneuver Safety Precautions/Swallowing Reduce distractions,Remain Recommendations upright (90 degrees) during all oral intake,Upright position at least 30 minutes after meals,Small bites and sips when eating,Slow rate; swallow between bites,Multiple swallows Medication Recommendations Crushed in [place] Referrals Recommended Referrals Dietary Education Patient/Caregiver Education Described results of evaluation,Patient expressed understanding of evaluation, Patient expressed agreement with goals & treatment plans, Family/caregivers expressed understanding of evaluation, Family/caregivers expressed agreement with goals & treatment plans,Patient expressed understanding of safety precautions,Patient expressed understanding of feeding recommendations,Family /caregivers expressed understanding of safety precautions,Family/caregivers expressed understanding of feeding recommendations, Patient requires further education/training,Family/ caregivers require further education/training Goals Short-term Goals 1. The pt will follow aspiration precautions and swallow strategies independently with all oral intake. 2. The pt will perform exercises to increase integrity of swallow mechanism independently to increase engagement of pharyngeal structures to reduce residue and decrease risk of aspiration. 3. The pt will perform VF adduction exercises to increase ROM and strength of left VF and improve airway protection. NMES intervention may be introduced if indicated. Long-term Goals 1. Using safe swallow strategies as needed, the pt will tolerate least restrictive diet to meet his nutrition and hydration needs.
--- NOTE | 2020-07-08 17:57 | ST.IPDYTX ---
Visit Care Team Role Provider Type Guanako Mario MD Attending Provider Physician Family Provider Primary Care Provider Referring Provider Specialty: Internal Medicine Address: [address] [place] [place] [address], [address] Email: [email or web address] [employer] LIGHTING SPECIALIST Dysphagia Treatment LIGHTING SPECIALIST Dysphagia Treatment Start: 07/02/20 18:02 Freq: Status: Active Protocol: Document 07/08/20 17:42 SONIA (Rec: 07/08/20 17:55 SONIA [id number]) Dysphagia Treatment Session Time Visit Start Time 14:30 Visit Stop Time 15:30 Total Visit Minutes 60 Visit Information Visit Number 06/01 Plan of Care Dates 07/02/20 - 09/29/20 Insurance Information Medicare Setting Assessment Location Outpatient Care Visit Type Note Type Treatment Note Next Note Type Next Note Type Treatment Note Patient Information Subjective Observations The pt arrived on time with , Barbara, who was present throughout the session for assistance with food prep and exercise at home. She had questions about food prep that were answered. Treatment Liquids Trialed [place] Solids Trialed Dysphagia Mechanical Administration Type Controlled Cup Sip Oral Strategies Upright at 90 degrees, Controlled Bite/Sip Size Pharyngeal Strategies Sitting Upright (90 deg), Double Swallow, Supersupraglottic Swallow, Small Bites and Sips Treatment Activities Education and training provided RE swallow exercises and their targets for improvement. Exercises included Marjorie, base and back of tongue, Soraya, intra- oral pressure, and CTAR. The pt performed all exercises as instructed. Discussed CTAR in light of recent ACDF surgery and prior neck issues and agreed pt would perform with gentle pressure on resistance and discontinue if any discomfort is felt in neck or throat. Assessed pt's swallow with thin liquids and dysphagia mechanical texture. Pt's brought soft bread which was used as trial. The pt consumed without overt s/sx of aspiration. He reported some sticking sensation with solid which cleared with subsequent swallows of liquid. Pt required verbal prompts to perform the cough with super- supraglottic swallow maneuver. He reported consuming small amounts of dysphagia mechanical texture at home with minimal difficulty. Sticking sensation was felt with egg salad, which the pt felt was too sticky. Education provided RE foods allowed and not allowed in dysphagia mechanical diet. Recommended the pt continue with primarily pureed texture and introduction of small amounts of dysphagia mechanical texture; discontinue if overt s/sx of aspiration or inability to clear pharyngeal residue occurs. Pt verbalized understanding and agreement. Assessment Patient Response to Treatment Good Rehab Potential Good Assessment of Improvement The pt is tolerating more advanced textures and liquids in small amounts with use of super-supraglottic maneuver. Able to perform all exercises as instructed. He exhibits excellent awareness of difficulties, ability to monitor, and understanding of all education. He has excellent support from his and is compliant with LIGHTING SPECIALIST recommendations. Diet Recommendations Recommendations Upgrade Diet Order Comment in small amounts of dysphgia mechanical texture and thin liquids Liquids Order [place] Diet Order Dysphagia Blenderized Medication Recommendations Whole in Carrier Aspiration Precautions Recommended Precautions Upright at 90 Degrees,Small Bites/Sips,Effortful Swallow, Double Swallow, Supersupraglottic Swallow Treatment Plan Appropriate for Continued Therapy Yes Therapy Recommendations Continue POC Dysphagia Goals 1. The pt will follow aspiration precautions and swallow strategies independently with all oral intake. 2. The pt will perform exercises to increase integrity of swallow mechanism independently to increase engagement of pharyngeal structures to reduce residue and decrease risk of aspiration. 3. The pt will perform VF adduction exercises to increase ROM and strength of left VF and improve airway protection. NMES intervention may be introduced if indicated. 4. Using safe swallow strategies as needed, the pt will tolerate least restrictive diet to meet his nutrition and hydration needs.
--- NOTE | 2020-07-16 20:51 | ST.IPDYTX ---
Visit Care Team Role Provider Type Guanako Mario MD Attending Provider Physician Family Provider Primary Care Provider Referring Provider Specialty: Internal Medicine Address: [address] [place] [address], [id number] Email: [email or web address] [employer]ishing SCREENPLAY WRITER Dysphagia Treatment SCREENPLAY WRITER Dysphagia Treatment Start: 07/02/20 18:02 Freq: Status: Active Protocol: Document 07/16/20 20:35 SONIA (Rec: 07/16/20 20:51 SONIA [email or web address]) Dysphagia Treatment Session Time Visit Start Time 13:30 Visit Stop Time 15:20 Total Visit Minutes 50 Visit Information Visit Number 07/02 Plan of Care Dates 07/02/20 - 09/29/20 Insurance Information Medicare Setting Assessment Location Outpatient Care Visit Type Note Type Treatment Note Next Note Type Next Note Type Treatment Note Patient Information Identification Type Name,ID Wristband Subjective Observations The pt arrived on time with , Barbara, who was present throughout the session for assistance with food prep and exercise at home. The pt has been consuming a mixture of pureed and dysphagia mechanical foods and mostly NTL. He reported having had a migraine last Tuesday and feeling under the weather, took medication and slept a greater than normal amount. On Tuesday afternoon, he was noted to have a fever of just over 100 degrees and mild spasms in his hands and shoulders. The couple was concerned he may have had an aspiration event. They saw their PCP on Tuesday who listened to his lungs and observed no abnormality; however, she ordered a chest x -ray for today after this session to monitor for aspiration. The pt has a f/u appt with his surgeon tomorrow . He also heard from [facility] to schedule a visit. He requested delaying scheduling until after his PCP , therapy and surgical follow- up appts. the coule aske for the SCREENPLAY WRITER's opinion regarding pursuing ENT evaluation. Treatment Liquids Trialed Ruch Solids Trialed Dysphagia Mechanical Administration Type Controlled Cup Sip Oral Strategies Upright at 90 degrees, Controlled Bite/Sip Size Pharyngeal Strategies Sitting Upright (90 deg), Double Swallow, Supersupraglottic Swallow, Small Bites and Sips Treatment Activities Consulted with pt/spouse RE Tuesday's events and c/o aspiration, which is possible to have occurred. Educated the couple on potential impact of other medical situations, stress, fatigue, etc., on swallow function/safety. Recommended downgrading diet to puree and NTL if c/o aspiration is present or if s/ sx of such have been observed. With these events in mind, evaluation by ENT is recommended for evaluation of VF and epiglottic function that may impact airway protection. The couple was in agreement. Reviewed HEP tasks with pt and provided further instruction. Pt exhibited strain and glottal gonsalez during pitch glides targeting laryngeal elevation and depression. Education and corrective instruction provided. Pt verbalized understanding but had difficulty modifying function. Recommended avoiding that exercise if unable to produce target voice quality. Pt performing other exercises appropriately. Assessment Patient Response to Treatment Good Rehab Potential Good Assessment of Improvement The pt may have had an aspiration event over the weekend, as indicated by spiked fever that lasted a short time. If so, this was likely impacted by migraine experienced prior and from subsequent related fatigue and /or distraction. The pt/spouse asked excellent questions, demonstrating good awareness and monitoring of s/sx of dysphagia and aspiration. Will be good to see chest x-ray results. In light of this, it is recommended the pt does pursue videostroboscopy evaluation with ENT for assessment of VF and epiglottic function as related to voice quality and airway protection. Diet Recommendations Recommendations Upgrade Diet Order Comment in small amounts of dysphgia mechanical texture and thin liquids Liquids Order Ruch Diet Order Dysphagia Blenderized Medication Recommendations Whole in Carrier Comments Small trials of thin liquid ok Aspiration Precautions Recommended Precautions Upright at 90 Degrees,Small Bites/Sips,Effortful Swallow, Double Swallow, Supersupraglottic Swallow Additional Precautions Eliminate and resume puree texture if s/sx of aspiration appear Treatment Plan Placement Recommendation after Discharge Home,Outpatient Therapy Appropriate for Continued Therapy Yes Therapy Recommendations Continue POC Dysphagia Goals 1. The pt will follow aspiration precautions and swallow strategies independently with all oral intake. 2. The pt will perform exercises to increase integrity of swallow mechanism independently to increase engagement of pharyngeal structures to reduce residue and decrease risk of aspiration. 3. The pt will perform VF adduction exercises to increase ROM and strength of left VF and improve airway protection. NMES intervention may be introduced if indicated. 4. Using safe swallow strategies as needed, the pt will tolerate least restrictive diet to meet his nutrition and hydration needs. Referrals/Other Recommended Referrals ENT Consult
--- NOTE | 2020-07-29 17:33 | ST.IPDYTX ---
Visit Care Team Role Provider Type Guanako Mario MD Attending Provider Physician Family Provider Primary Care Provider Referring Provider Specialty: Internal Medicine Address: [address] [place] [address], [id number] Email: [email or web address]SP[employer]ATION PLANNING ENGINEER Dysphagia Treatment TRANSPORTATION PLANNING ENGINEER Dysphagia Treatment Start: 07/02/20 18:02 Freq: Status: Active Protocol: Document 07/29/20 17:19 SONIA (Rec: 07/29/20 17:33 SONIA [email or web address]) Dysphagia Treatment Session Time Visit Start Time 15:30 Visit Stop Time 16:20 Total Visit Minutes 50 Visit Information Visit Number 07/30 Plan of Care Dates 07/02/20 - 09/29/20 Insurance Information Medicare Setting Assessment Location Outpatient Care Visit Type Note Type Treatment Note Next Note Type Next Note Type Treatment Note Patient Information Identification Type Name,ID Wristband Subjective Observations The pt arrived on time with , Barbara, who was present throughout the session for assistance with food prep and exercise at home. The pt has been consuming a mixture of pureed and dysphagia mechanical foods, thin and NTL . He reported no aspiration events since last session. He did meet with his surgeon who recommended the pt wait in pursuing video stroboscopy from ENT, wanting not to stick anything down your throat, per pt report. The pt no longer needs to wear neck brace and was generally feeling improved. Stated his voice was back to normal. Treatment Liquids Trialed Thin Solids Trialed Dysphagia Mechanical Administration Type Controlled Cup Sip Oral Strategies Upright at 90 degrees, Controlled Bite/Sip Size Pharyngeal Strategies Sitting Upright (90 deg),Chin Tuck,Double Swallow, Supraglottic Swallow,Small Bites and Sips Treatment Activities Assessed pt's swallow with trials of diced fruit and thin liquid. Pt reported sticking sensation with one bite of fruit. This did not clear with double swallow but did clear with liquid wash. Pt reported needing double swallow to fully clear liquids. No overt s/sx of aspiration was observed or reported by pt. Voice quality is normal and remained clear throughout the oral trials. Education provided RE physiological targets of prescribed swallow exercises. Pt is completed HEP 1x/day. Recommended increasing to 2-3x /day. He was in agreement. Assessment Patient Response to Treatment Good Rehab Potential Good Assessment of Improvement The pt is making good progress toward goals, able to tolerate dysphagia mechanical texture and some thin liquds. No aspiration events since last session. Recommend increasing oral trials to mechanical soft and advanced dysphagia textures, thin liquids with implementation of safe swallow strategies. Recommend trials of meds whole with liquid; discontinue if meds penetrate laryngeal vestibule. Also recommended pt increase frequency of HEP tasks to maximize strengthening of swallow musculature. Voice was perceived to be WNL. Diet Recommendations Recommendations Upgrade Diet Order Liquids Order Thin Diet Order Dysphagia Advanced Medication Recommendations Whole in Carrier Comments Small trials of thin liquid ok Aspiration Precautions Recommended Precautions Upright at 90 Degrees,Small Bites/Sips,Effortful Swallow, Double Swallow, Supersupraglottic Swallow Additional Precautions Eliminate and resume puree texture if s/sx of aspiration appear Treatment Plan Placement Recommendation after Discharge Home,Outpatient Therapy Appropriate for Continued Therapy Yes Therapy Recommendations Continue POC Dysphagia Goals 1. The pt will follow aspiration precautions and swallow strategies independently with all oral intake. 2. The pt will perform exercises to increase integrity of swallow mechanism independently to increase engagement of pharyngeal structures to reduce residue and decrease risk of aspiration. 3. The pt will perform VF adduction exercises to increase ROM and strength of left VF and improve airway protection. NMES intervention may be introduced if indicated. 4. Using safe swallow strategies as needed, the pt will tolerate least restrictive diet to meet his nutrition and hydration needs. Referrals/Other Recommended Referrals ENT Consult
--- NOTE | 2020-08-12 18:05 | ST.IPDYTX ---
Visit Care Team Role Provider Type Guanako Mario MD Attending Provider Physician Family Provider Primary Care Provider Referring Provider Specialty: Internal Medicine Address: [address] [place] [address], [id number] Email: SENIOR SOFTWARE TESTER Dysphagia Treatment SENIOR SOFTWARE TESTER Dysphagia Treatment Start: 07/02/20 18:02 Freq: Status: Active Protocol: Document 08/12/20 17:48 SONIA (Rec: 08/12/20 18:05 SONIA [email or web address]) Dysphagia Treatment Session Time Visit Start Time 14:30 Visit Stop Time 15:20 Total Visit Minutes 50 Visit Information Visit Number 08/30 Plan of Care Dates 07/02/20 - 09/29/20 Insurance Information Medicare Setting Assessment Location Outpatient Care Visit Type Note Type Treatment Note Next Note Type Next Note Type Treatment Note Patient Information Identification Type Name,ID Wristband Subjective Observations The pt arrived on time with , Barbara, who was present throughout the session for assistance with food prep and exercise at home. The pt reported resuming regular food texture and thin liquids with exceptions of some small, dry and crumbly textures such as seeds and hard cookies. He has experienced 2 episodes of airway infiltration, resulting in strong cough responses. After one of these episodes, he experienced a hoarse voice the following day. Voice returned to normal after ~24 hrs and has remained normal. He reported ongoing occasional sticking of food in the upper throat (likely vallecula), which he is able to return to oral cavity, chew again and reswallow, or to clear with liquid. Treatment Treatment Activities No oral trials were administered during today's session. Skilled feedback was provided based on pt's/'s reports. Education was provided RE LPR/GERD including foods to avoid or minimize and timing of intake. Also educted pt on potential impacts of strong and/or frequent coughing on voice. Trained pt in alternative cough responses to minimize negative impact on VFs, particularly when coughing stems from a tickle in the throat or bolus sensation resulting from swelling of tissue from trauma. The pt was instructed to always cough as hard and long as needed if his airway is obstructed. He verbalized understanding of all information provided and agreement with the latter safety precaution. Discussed POC and whether or not to pursue f/u MBS. Agreed the pt would continue exercises and consumption as tolerated over the next 3 weeks. Will f/u in outpatient clinic at that time and determine if MBS is warranted based on findings at that time . Assessment Patient Response to Treatment Excellent Rehab Potential Excellent Assessment of Improvement The pt is making excellent progress toward goals, able to tolerate most regular textures and thin liquids. He pt has had 2 episodes of penetration and/or aspiration but was able to manage both with coughing. Strong, extensive coughing did have a negative impact on his voice, likely d/t swelliing of VFs, but this resolved within 24 hrs. Voice is perceived today by SENIOR SOFTWARE TESTER to be WNL and by pt/ spouse to be at baseline. The pt and his were receptive to education related to voice and LPR/GERD precautions, as well as to training of alternative cough techniques. Exercises appear to be improving the pt's swallow function/safety, and concern of silent aspiration is low based on the pt's strong cough responses to food particles in his airway. Continued sticking sensation at level of vallecula indicates the epiglottis inversion continues to be incomplete. Will continue treatment plan for 3 more weeks. At that time, if symptoms have not improved further, MBS may be warranted for further evaluation to guide POC. Pt/spouse were in agreement with this plan. Diet Recommendations Recommendations Upgrade Diet Order Comment in small amounts of dysphgia mechanical texture and thin liquids Liquids Order Thin Diet Order Regular Medication Recommendations As Tolerated Aspiration Precautions Recommended Precautions Upright at 90 Degrees,Small Bites/Sips,Effortful Swallow, Double Swallow,Supraglottic Swallow Treatment Plan Placement Recommendation after Discharge Home,Outpatient Therapy Appropriate for Continued Therapy Yes Therapy Recommendations Continue POC Dysphagia Goals 1. The pt will follow aspiration precautions and swallow strategies independently with all oral intake. 2. The pt will perform exercises to increase integrity of swallow mechanism independently to increase engagement of pharyngeal structures to reduce residue and decrease risk of aspiration. 3. The pt will perform VF adduction exercises to increase ROM and strength of left VF and improve airway protection. NMES intervention may be introduced if indicated. 4. Using safe swallow strategies as needed, the pt will tolerate least restrictive diet to meet his nutrition and hydration needs. Referrals/Other Recommended Referrals ENT Consult
--- NOTE | 2020-09-02 16:43 | ST.IPDYTX ---
Visit Care Team Role Provider Type Guanako Mario MD Attending Provider Physician Family Provider Primary Care Provider Referring Provider Specialty: Internal Medicine Address: [address] [place] [address], [address] Email: [email or web address] APPLICATION OPERATIONS ENGINEER Dysphagia Treatment APPLICATION OPERATIONS ENGINEER Dysphagia Treatment Start: 07/02/20 18:02 Freq: Status: Active Protocol: Document 09/02/20 14:23 SONIA (Rec: 09/02/20 14:34 SONIA [id number]) Dysphagia Treatment Session Time Visit Start Time 13:30 Visit Stop Time 14:15 Total Visit Minutes 45 Visit Information Visit Number 09/29 Plan of Care Dates 07/02/20 - 09/29/20 Insurance Information Medicare Setting Assessment Location Outpatient Care Visit Type Note Type Treatment Note Next Note Type Next Note Type Treatment Note Patient Information Identification Type Name,ID Wristband Subjective Observations The pt arrived on time with , Barbara, who was present throughout the session for assistance with food prep and carryover at home. The pt reported eating everything he wishes to with occasional continued sticking sensation oand/or coughing with dry crumbly textures and with skins of fruit, such as grapes . He reports this is his baseline prior to recent ACDF surgery. He and his state that he frequently is clearing his throat throughout the day. He also has mild- moderate PND and GERD, which could be contributors. He stated his voice is generally back to baseline also with occ espisodes of hoarseness, which appears to occur after episodes of strong coughing. Treatment Liquids Trialed Thin Solids Trialed Dysphagia Mechanical Administration Type Controlled Cup Sip Oral Strategies Upright at 90 degrees, Controlled Bite/Sip Size Pharyngeal Strategies Sitting Upright (90 deg),Chin Tuck,Double Swallow, Supraglottic Swallow,Small Bites and Sips Treatment Activities No oral trials were administered during today. Education and training provided RE potential impacts of PND and GERD on sensitivity of pharyngeal and laryngeal tissue and/or VFs and vocal quality. Trained pt in alternative cough techniques to reduce VF trauma. Also reviewed compensatory swallow and food texture strategies to reduce pharyngeal residue and food sticking in throat. Pt is independently using head turn to left side with or without chin tuck and liquid wash to clear residue and prevent sticking sensation, which he reports usually helps . Discussed POC and follow-up MBS for assessment. Pt stated he would like to have this procedure to better understand his current swallow status and to establish an updated baseline, should he have increased difficulty in the future. APPLICATION OPERATIONS ENGINEER in agreement. Request for orders faxed to Dr Linda Mario. Assessment Patient Response to Treatment Excellent Rehab Potential Excellent Assessment of Improvement The pt continues with excellent progress toward goals, able to tolerate most regular textures and thin liquids with occasional coughing and sticking sensation with dry crumbly foods and textures like skins of fruits. He is using compensatory strategies effectively and independently. He appears to be back to his baseline prior to recent ACDF. The pt does have hx of a previous ACDF surgery 25 yrs ago, after which he experienced these current challenges. Follow-up Modified Barium Swallow Study is recommended for assessment of current function, to r/o silent aspiration, which was present at [facility], and to guide POC. The pt is in agreement with this plan. Diet Recommendations Recommendations Continue Current Diet Comment in small amounts of dysphgia mechanical texture and thin liquids Liquids Order Thin Diet Order Regular Medication Recommendations As Tolerated Aspiration Precautions Recommended Precautions Upright at 90 Degrees,Small Bites/Sips,Effortful Swallow, Double Swallow,Supraglottic Swallow Treatment Plan Placement Recommendation after Discharge Home,Outpatient Therapy Appropriate for Continued Therapy Yes Therapy Recommendations Continue POC Dysphagia Goals 1. The pt will follow aspiration precautions and swallow strategies independently with all oral intake. 2. The pt will perform exercises to increase integrity of swallow mechanism independently to increase engagement of pharyngeal structures to reduce residue and decrease risk of aspiration. 3. The pt will perform VF adduction exercises to increase ROM and strength of left VF and improve airway protection. NMES intervention may be introduced if indicated. 4. Using safe swallow strategies as needed, the pt will tolerate least restrictive diet to meet his nutrition and hydration needs. Follow Up Plan MBSS Referrals/Other Recommended Referrals ENT Consult
--- NOTE | 2020-11-18 17:25 | ST.IPDYTX ---
Visit Care Team Role Provider Type Guanako Mario MD Attending Provider Physician Family Provider Primary Care Provider Referring Provider Specialty: Internal Medicine [address]: [address] [place] [address], [id number] Email: [email or web address] TELEPHONE DIRECTORY DELIVERER Dysphagia Treatment TELEPHONE DIRECTORY DELIVERER Dysphagia Treatment Start: 07/02/20 18:02 Freq: Status: Active Protocol: Document 11/18/20 16:53 SONIA (Rec: 11/18/20 17:24 SONIA [id number]) Dysphagia Treatment Session Time Visit Start Time 14:30 Visit Stop Time 15:20 Total Visit Minutes 50 Visit Information Visit Number 06/01 Plan of Care Dates 11/18/20 - 02/18/21 Insurance Information Medicare Setting Assessment Location Outpatient Care Visit Type Note Type Re-Evaluation Next Note Type Next Note Type Treatment Note Patient Information Identification Type Name,ID Wristband Subjective Observations The pt arrived on time with , Barbara, who was present throughout the session. Pt participated in MBSS on and attended today for follow-up to review results. MBSS revealed significant improvement in swallow function/safety since SOC; no penetration or aspiration; mildly reduced hyolaryngeal anterior excursion and inconsistent epiglottic inversion, resulting in mild- moderate pharyngeal residue. The pt reported eating most everything he wishes to with occasional continued sticking sensation and/or coughing with dry crumbly textures and with skins of fruit, such as grapes. He reported increased vocal hoarseness that appears to be more consistent than in past. He has not been following HEP consistently. Treatment Treatment Activities No oral trials were administered during today's session. Pt/spouse were educated of MBSS results with video review, specifically noting findings as described above. Informal assessment of pt's voice was made. Mild dysphonia was perceived, characterized by consistent mild-moderate roughness and reduced amplitude, although loudness levels were WFL for the quiet treatment room environment. The pt also reported poor breathing habits, including mouth breathing, especially at night. Education was provided RE vocal hygiene and importance of nasal breathing to moisten, warm and filter air. The pt reported receiving breathing exercises from his Physical Therapist in past. TELEPHONE DIRECTORY DELIVERER recommended pt resume those exercises, as well as swallow exercises as prescribed, including breath holds to improve VF adduction. Additionally, recommended pt manage dry sticky foods by reducing bite size, increasing mastication, and following with liquid. Recommended f/u in 3 wks. Pt in agreement. Assessment Patient Response to Treatment Excellent Rehab Potential Excellent Assessment of Improvement The pt has made excellent progress over course of dysphagia treatment. Recent MBS revealed improved airway protection, continued mild- moderate pharyngeal residue, which is the pt's primary complaint. It is anticipated swallow will continue to improve with resumption of HEP compliance. The pt presented today with increased hoarseness, which may be impacted by mouth vs nasal breathing, as well as reduced breath support for speech/voicing. Again, improvement is anticipated by the pt resuming swallow HEP, which includes exercises beneficial for voice, as well as resuming breathing exercises assigned by the pt's PT. Will f/u in 3 wks. If improvements are not made, will initiate direct voice therapy and continue dysphagia therapy as indicated. Diet Recommendations Recommendations Continue Current Diet Liquids Order Thin Diet Order Regular Medication Recommendations As Tolerated Aspiration Precautions Recommended Precautions Upright at 90 Degrees,Small Bites/Sips,Effortful Swallow, Double Swallow,Supraglottic Swallow Treatment Plan Appropriate for Continued Therapy Yes Therapy Recommendations Resume compliance with HEP. Ongoing assessment of swallow and voice Dysphagia Goals 1. The pt will follow aspiration precautions and swallow strategies independently with all oral intake. 2. The pt will perform exercises to increase integrity of swallow mechanism independently to increase engagement of pharyngeal structures to reduce residue and decrease risk of aspiration. 3. The pt will perform VF adduction exercises to increase ROM and strength of left VF and improve airway protection. 4. Using safe swallow strategies as needed, the pt will tolerate least restrictive diet to meet his nutrition and hydration needs. Follow Up Plan F/U in 3 wks
--- NOTE | 2020-12-09 17:35 | ST.IPDYTX ---
Visit Care Team Role Provider Type Guanako Mario MD Attending Provider Physician Family Provider Primary Care Provider Referring Provider Specialty: Internal Medicine Address: [address] [place] [address], [id number] Email: [email or web address] FINISHING AREA SUPERVISOR Dysphagia Treatment FINISHING AREA SUPERVISOR Dysphagia Treatment Start: 07/02/20 18:02 Freq: Status: Active Protocol: Document 12/09/20 17:03 SONIA (Rec: 12/09/20 17:31 SONIA [id number]) Dysphagia Treatment Session Time Visit Start Time 15:30 Visit Stop Time 16:30 Total Visit Minutes 60 Visit Information Visit Number 07/02 Plan of Care Dates 11/18/20 - 02/18/21 Insurance Information Medicare Setting Assessment Location Outpatient Care Visit Type Note Type Discharge Summary Patient Information Identification Type Name,ID Wristband Subjective Observations The pt arrived on time with , Barbara, who was present throughout the session. Pt reported poor to moderate compliance with HEP, difficulty swallowing fruit with skins, and continued hoarse voice. 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 FINISHING AREA SUPERVISOR student was present throughout the session. Treatment Treatment Activities No oral trials were administered during today's session. Consulted with pt/ spouse RE HEP and ways to incorporate exercises into existing routine. Modified swallow exercise list to 4 priority exercises targeting airway protection, epiglottic inversion, UES opening, and pharyngeal clearance. This was done to promote pt carryover and compliance and meet his time management needs. Reinforced training of VF adduction exercise both for airway protection and vocal quality. Established an exercise journal to further assist with carryover and compliance. Educated pt RE vocal hygiene including optimal hydration, vocal rest, tools to reduce vocal mis/ overuse (e.g., amplifiers such as bullhorn; sanders or whistle to get students' attention on the boat). Educated pt in importance of diaphragmatic breathing, breath support, and laryngeal relaxation necessary for optimal voice production. Pt verbalized understanding and agreement. Discussed POC. Agreed that pt has been adequately educated and trained in dysphagia and dysphonia risks, precautions, and exercises and must now establish consistent routine with HEP. Discharge from skilled intervention is appropriate at this time. Pt/ spouse in agreement. Assessment Patient Response to Treatment Excellent Rehab Potential Excellent Assessment of Improvement Over the course of treatment, the pt has made excellent improvement in swallow function/safety and has presented with inconsistent vocal quality. Recent MBS revealed improved airway protection, continued mild- moderate pharyngeal residue, which is the pt's primary complaint. He is able to tolerate thin liquids and regular textures with exception of some dry, crumbly foods and textures such as fruit skins. Changes in vocal quality appear to be related to seasonal allergies and occasional overuse of voice without adequate hydration. The pt has consistently demonstrated understanding and ability to perform swallow and voice exercises with positive outcomes. Recently he has declined in his compliance with HEP, resulting in mildly increased symptoms. Based on progress over the course of treatment, it is anticipated that with improved HEP compliance, the pt will continue to experience highest possible level of function. Likewise, decreased compliance is likely to result in increased symptoms. The pt verbalized understanding of this and, with spouse support, agreed to maintain compliance with HEP maintenance program. He will be discharged from skilled intervention at this time. Diet Recommendations Recommendations Continue Current Diet Liquids Order Thin Diet Order Regular Medication Recommendations As Tolerated Aspiration Precautions Recommended Precautions Upright at 90 Degrees,Small Bites/Sips,Effortful Swallow, Double Swallow,Supraglottic Swallow Treatment Plan Placement Recommendation after Discharge Home Appropriate for Continued Therapy Yes Therapy Recommendations Discharge to [facility]. Dysphagia Goals 1. The pt will follow aspiration precautions and swallow strategies independently with all oral intake. GOAL MET 2. The pt will perform exercises to increase integrity of swallow mechanism independently to increase engagement of pharyngeal structures to reduce residue and decrease risk of aspiration. GOAL MET 3. The pt will perform VF adduction exercises to increase ROM and strength of left VF and improve airway protection. GOAL MET 4. Using safe swallow strategies as needed, the pt will tolerate least restrictive diet to meet his nutrition and hydration needs. GOAL MET
== END 2020-12-10 11:19 | disposition home or self-care (01) ==
LOC: SP 15:30
PROVIDERS: Family Provider Internal Medicine; PCP Internal Medicine; Referring Provider Internal Medicine; Visit Provider Internal Medicine
DX: R13.10 Dysphagia, unspecified (principal)
CPT/HCPCS: 92507; 92526; 92610

== ENCOUNTER 2021-01-23 12:15 | Outpatient (RCR) | payer MEDICARE, OTHER, SELFPAY ==
[2020-06-19 22:47] VITALS: BMI 26.1
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
--- NOTE | 2020-12-25 09:45 | PT.OTN ---
Current Diagnoses Pain, unspecified (12/25/20) Physical Therapy Treatment Note PT-OP-A Visit Information Start: 12/02/20 15:54 Freq: Status: Active Protocol: Document 12/25/20 09:03 MB (Rec: 12/25/20 09:40 MB [id number]) Out-Patient Physical Therapy Visit Information Visit Information Visit Type Treatment Note Visit Note Medicare [place] of [place], [place] Visit Start Time 09:03 Visit Stop Time 09:45 Total Visit Minutes 42 Visit Number 4 PT-OP-B Current Condition Start: 12/02/20 15:54 Freq: Status: Active Protocol: Document 12/04/20 13:05 MB (Rec: 12/04/20 13:47 MB [id number]) Current Condition History of Current Condition Onset Date Long history of pain Current Complaints Right buttocks, thigh, calf and heel pain History of Current Condition Pt returns to PT after recent discharge for headaches and neck pain after cervical fusion. This order is for piriformis syndrome. Pt with recent trigger point injections to multiple neck and back muscles. He had his piriformis injected as well. He has had SI and spinal injections in the past. Pt has a long history of neck and back pain. He has history of two cervical fusions and one lumbar fusion, one lumbar laminectomy, right SI fusion, significant stock[place] to thorax, arms and head, probable degenerative changes in shoulders s/p arthroscopy surgeries for spur removals, migraine headaches. PMH also includes T4 fracture, thyroid disorder, vision problems, arthritis, hearing problems, fall off ladder in 2011, cardiac stents 2012 and 2013 and problem with plavix that caused pain. Pt reports 7/10 posterior neck , central LB, posterior right thigh and calf pain. He reports 6/10 right scapular, right buttucks and right heel pain. He reports 5/10 left buttocks and left heel pain. Prior Treatments and Tests Fusions, PT, injections Treatment Goals Patient/Caregiver Goals To decrease pain PT-OP-C Subjective Start: 12/02/20 15:54 Freq: Status: Active Protocol: Document 12/25/20 09:03 MB (Rec: 12/25/20 09:40 MB [id number]) OP-PT Subjective Patient Comments Patient Comments Pt states that he is trying to figure out what is worse: his hip, his back or his head. He is having more trigger point injections today. PT-OP-J Posture/Palpation/Skin Start: 12/02/20 15:54 Freq: Status: Active Protocol: Document 12/04/20 13:05 MB (Rec: 12/04/20 16:10 MB [id number]) Posture Evaluation Comments Posture Comments Standing posture with shoes donned: forward head and decreased cervical lordosis, increased thoracic kyphosis, increased lumbar lordosis with post-surgical changes in spine, anterior tilt pelvis, right shoulder lower than the left, rounded shoulders, left iliac crest higher than the right. PT-OP-K Range of Motion Start: 12/02/20 15:54 Freq: Status: Active Protocol: Document 12/04/20 13:05 MB (Rec: 12/04/20 16:10 MB [id number]) Hip Goniometric Range of Motion Hip ROM Limitations Comments B passive SLR very limited at 15 deg and pt reporting increased discomfort in thoracic spine and hamstrings with SLR Very little passive hip ER and IR B and pt with increased discomfort and so not pushed PT-OP-M Strength Start: 12/02/20 15:54 Freq: Status: Active Protocol: Document 12/04/20 13:05 MB (Rec: 12/04/20 16:10 MB [id number]) Hip Strength Hip Manual Muscle Testing Left Flexion (L2) 4 Good Abduction 3+ Fair+ External Rotation 4 Good Right Flexion (L2) 3+ Fair+ Abduction 3 Fair Adduction 3+ Fair+ Knee Strength Knee Manual Muscle Testing Left Flexion (S2) 5 Normal Extension (L3) 5 Normal Right Flexion (S2) 5 Normal Extension (L3) 5 Normal Ankle/Foot Strength Ankle and Foot Manual Muscle Testing Left Dorsiflexion (L4) 5 Normal Right Dorsiflexion (L4) 5 Normal Toe Strength Toe Manual Muscle Testing Left Great Toe Extension 5 Normal Right Great Toe Extension 5 Normal PT-OP-Q Treatments Start: 12/02/20 15:54 Freq: Status: Active Protocol: Document 12/25/20 09:03 MB (Rec: 12/25/20 09:40 MB [id number]) Therapeutic Exercises Supine Exercises Legs up on 55 cm therapy ball Supine Exercise Name Legs together and then open-- closed is better Equipment Used 55 cm ball Comments For positional release only, diaphragm breathing Anterior hip stretch Supine Exercise Name Leg straight, opposite leg up with towel behind knee Side bilateral Comments Cues that a little is better than a lot of stretch, 30 sec hold, use of tow Diaphragm breathing Comments 5 reps slowly and cues to slow down Hamstring stretch, AP Side bilateral Comments Using towel behind knee, opposite knee bent, flex/ext, 10 AP Self-Care/Home Management Treatment Education Other Education Ed pt to communicate with provider that the trigger point injections seem to cause more pain Ed pt that he doesn't have anything to lose with regard to checking out the pool and trying gentle swimming Ed pt on anatomy of trigger points, chemicals in the area, glymphatic system PT gives pt paper with PT card and comments for Dr. Fitzgerald PT-OP-T Assessment and Plan Start: 12/02/20 15:54 Freq: Status: Active Protocol: Document 12/25/20 09:03 MB (Rec: 12/25/20 09:40 MB [id number]) Physical Therapy Assessment Rehab Potential Rehabilitation Potential Fair Evaluation Complexity Number of Personal Factors/Comorbidities 1-2 Number of Body Systems Impaired 1-2 Clinical Presentation at Evaluation Evolving Impairments Impairments Balance,Functional Activities, Functional Mobility,Gait,Pain, Posture,ROM,Soft Tissue Mobility,Strength Other Impairments Personal factors include pt is hypoverbal about symptoms and he has tended to do things that exacerbate his symptoms in past PT duration. He has many areas of pain with history of multiple spinal surgeries. Body systems affected include musculoskeletal, neuromuscular . His clinical presentation is evolving. Other Concerns Fall Risk Yes Goals 5 Senior Care Goal (LTG) Pt will gait train at least 1500 feet in 6 minutes to prepare for hiking by 02/04/21. LTG Duration 8 weeks 4 Senior Care Goal (LTG) Pt will perform progressive HEP with I including flexibility, breathing, relaxation, balance and gentle strengthening to improve pain and gait by 02/04/21. LTG Duration 8 weeks 3 Camera Repairer Goal (LTG) Pt will present with improved B passive SLR to 30 deg to reflect improved hamstring and LB mobility to improve functional flexion by 02/04/21. LTG Duration 8 weeks 2 Senior Care Goal (LTG) Pt will report no more than 2/ 10 right LE pain with walking 1-1.5 miles with to allow return to hiking by 02/04/21. LTG Duration 8 weeks 1 Camera Repairer Goal (LTG) Pt will present with an improved LEF score to reflect no more than 30% impairment to reflect improved functional mobility by 02/04/21. LTG Duration 8 weeks Assessment Summary Assessment Pt may benefit from having indirect needling to multifidi of spinal level of areas of pain given pain after needling or perhaps only needling 1 point to see how he responds. PT writes name and phone number out for him to give Dr. Fitzgerald today. Initiated gentle stretching with head and neck supported today and so need to see how he tolerates. Physical Therapy Plan Frequency and Duration Frequency of Treatment 2x/Week Duration of Treatment 8 weeks Plan of Care Start Date 12/04/20 Plan of Care End Date 02/04/21 Therapeutic Interventions Therapeutic Interventions Aquatic Therapy,Balance Training,Canalithic Repositioning,Coordination Training,Gait Training,Home Exercise Program,Joint Mobilizations,Manual Therapy, Neuromuscular Re-education, Patient/Caregiver Education, Self-Care/Home Management,Soft Tissue Mobilization,Taping, Therapeutic Activities, Therapeutic Exercises Modalities Cold Pack/Ice Massage,Electric Stimulation,Hot Packs, Ultrasound Other Referrals/Consults Referrals/Consults Recommended Consider having pelvic floor PT seeing pt a couple of visits if appropriate Next Visit Focus/Plan Next Note Type Treatment Note Next Visit Plan Body mechanics training Ongoing Counterstrain
--- NOTE | 2020-12-29 11:18 | PT.OTN ---
Current Diagnoses Pain, unspecified (12/29/20) Physical Therapy Treatment Note PT-OP-A Visit Information Start: 12/02/20 15:54 Freq: Status: Active Protocol: Document 12/29/20 10:34 MB (Rec: 12/29/20 11:17 MB [id number]) Out-Patient Physical Therapy Visit Information Visit Information Visit Type Treatment Note Visit Note [place] Visit Start Time 10:34 Visit Stop Time 11:15 Total Visit Minutes 41 Visit Number 5 PT-OP-B Current Condition Start: 12/02/20 15:54 Freq: Status: Active Protocol: Document 12/04/20 13:05 MB (Rec: 12/04/20 13:47 MB [id number]) Current Condition History of Current Condition Onset Date Long history of pain Current Complaints Right buttocks, thigh, calf and heel pain History of Current Condition Pt returns to PT after recent discharge for headaches and neck pain after cervical fusion. This order is for piriformis syndrome. Pt with recent trigger point injections to multiple neck and back muscles. He had his piriformis injected as well. He has had SI and spinal injections in the past. Pt has a long history of neck and back pain. He has history of two cervical fusions and one lumbar fusion, one lumbar laminectomy, right SI fusion, significant [place] to thorax, arms and head, probable degenerative changes in shoulders s/p arthroscopy surgeries for spur removals, migraine headaches. PMH also includes T4 fracture, thyroid disorder, vision problems, arthritis, hearing problems, fall off ladder in 2011, cardiac stents 2012 and 2013 and problem with plavix that caused pain. Pt reports 7/10 posterior neck , central LB, posterior right thigh and calf pain. He reports 6/10 right scapular, right buttucks and right heel pain. He reports 5/10 left buttocks and left heel pain. Prior Treatments and Tests Fusions, PT, injections Treatment Goals Patient/Caregiver Goals To decrease pain PT-OP-C Subjective Start: 12/02/20 15:54 Freq: Status: Active Protocol: Document 12/29/20 10:34 MB (Rec: 12/29/20 11:17 MB [id number]) OP-PT Subjective Patient Comments Patient Comments Pt states that he was just needled down the right ITB and that seemed to be better. There were less points treated . [place] [employer] [place], like the whole day. His hydration wasn't good . The headaches have been way out of control. PT-OP-J Posture/Palpation/Skin Start: 12/02/20 15:54 Freq: Status: Active Protocol: Document 12/04/20 13:05 MB (Rec: 12/04/20 16:10 MB [id number]) Posture Evaluation Comments Posture Comments Standing posture with shoes donned: forward head and decreased cervical lordosis, increased thoracic kyphosis, increased lumbar lordosis with post-surgical changes in spine, anterior tilt pelvis, right shoulder lower than the left, rounded shoulders, left iliac crest higher than the right. PT-OP-K Range of Motion Start: 12/02/20 15:54 Freq: Status: Active Protocol: Document 12/04/20 13:05 MB (Rec: 12/04/20 16:10 MB [id number]) Hip Goniometric Range of Motion Hip ROM Limitations Comments B passive SLR very limited at 15 deg and pt reporting increased discomfort in thoracic spine and hamstrings with SLR Very little passive hip ER and IR B and pt with increased discomfort and so not pushed PT-OP-M Strength Start: 12/02/20 15:54 Freq: Status: Active Protocol: Document 12/04/20 13:05 MB (Rec: 12/04/20 16:10 MB [id number]) Hip Strength Hip Manual Muscle Testing Left Flexion (L2) 4 Good Abduction 3+ Fair+ External Rotation 4 Good Right Flexion (L2) 3+ Fair+ Abduction 3 Fair Adduction 3+ Fair+ Knee Strength Knee Manual Muscle Testing Left Flexion (S2) 5 Normal Extension (L3) 5 Normal Right Flexion (S2) 5 Normal Extension (L3) 5 Normal Ankle/Foot Strength Ankle and Foot Manual Muscle Testing Left Dorsiflexion (L4) 5 Normal Right Dorsiflexion (L4) 5 Normal Toe Strength Toe Manual Muscle Testing Left Great Toe Extension 5 Normal Right Great Toe Extension 5 Normal PT-OP-Q Treatments Start: 12/02/20 15:54 Freq: Status: Active Protocol: Document 12/29/20 10:34 MB (Rec: 12/29/20 11:17 MB [id number]) Manual Therapy Treatment Other Other Manual Treatments Pt agrees to Counterstain to assess and treat fascial tension and he presents with tension in the following fascial systems: lymphatic venous standard row, spinal medullary, ALL. PT treats stacks in ALL and standard row LV. PT-OP-T Assessment and Plan Start: 12/02/20 15:54 Freq: Status: Active Protocol: Document 12/29/20 10:34 MB (Rec: 12/29/20 11:17 MB [id number]) Physical Therapy Assessment Rehab Potential Rehabilitation Potential Fair Evaluation Complexity Number of Personal Factors/Comorbidities 1-2 Number of Body Systems Impaired 1-2 Clinical Presentation at Evaluation Evolving Impairments Impairments Balance,Functional Activities, Functional Mobility,Gait,Pain, Posture,ROM,Soft Tissue Mobility,Strength Other Impairments Personal factors include pt is hypoverbal about symptoms and he has tended to do things that exacerbate his symptoms in past PT duration. He has many areas of pain with history of multiple spinal surgeries. Body systems affected include musculoskeletal, neuromuscular . His clinical presentation is evolving. Other Concerns Fall Risk Yes Goals 5 Skilled Nursing Goal (LTG) Pt will gait train at least 1500 feet in 6 minutes to prepare for hiking by 02/04/21. LTG Duration 8 weeks 4 Supervisor Game Farm Goal (LTG) Pt will perform progressive HEP with I including flexibility, breathing, relaxation, balance and gentle strengthening to improve pain and gait by 02/04/21. LTG Duration 8 weeks 3 Supervisor Game [employer] Goal (LTG) Pt will present with improved B passive SLR to 30 deg to reflect improved hamstring and LB mobility to improve functional flexion by 02/04/21. LTG Duration 8 weeks 2 Skilled Nursing Goal (LTG) Pt will report no more than 2/ 10 right LE pain with walking 1-1.5 miles with to allow return to hiking by 02/04/21. LTG Duration 8 weeks 1 Skilled Nursing Goal (LTG) Pt will present with an improved LEF score to reflect no more than 30% impairment to reflect improved functional mobility by 02/04/21. LTG Duration 8 weeks Assessment Summary Assessment [place] and he has had a lot of pain and headaches since then. He has not been hydrating well. Re-ed pt in this. He is thinking about flying up to [place] to work on a plumbing problem at his rental house. Re-ed pt on activity monitoring. His ongoing activity choices are barriers to PT. Con't per POC. Physical Therapy Plan Frequency and Duration Frequency of Treatment 2x/Week Duration of Treatment 8 weeks Plan of Care Start Date 12/04/20 Plan of Care End Date 02/04/21 Therapeutic Interventions Therapeutic Interventions Aquatic Therapy,Balance Training,Canalithic Repositioning,Coordination Training,Gait Training,Home Exercise Program,Joint Mobilizations,Manual Therapy, Neuromuscular Re-education, Patient/Caregiver Education, Self-Care/Home Management,Soft Tissue Mobilization,Taping, Therapeutic Activities, Therapeutic Exercises Modalities Cold Pack/Ice Massage,Electric Stimulation,Hot Packs, Ultrasound Other Referrals/Consults Referrals/Consults Recommended Consider having pelvic floor PT seeing pt a couple of visits if appropriate Next Visit Focus/Plan Next Note Type Treatment Note Next Visit Plan Body mechanics training Ongoing Counterstrain
--- NOTE | 2021-01-01 11:15 | PT.OTN ---
Current Diagnoses Pain, unspecified (01/01/21) Physical Therapy Treatment Note PT-OP-A Visit Information Start: 12/02/20 15:54 Freq: Status: Active Protocol: Document 01/01/21 10:31 MB (Rec: 01/01/21 11:13 MB [id number]) Out-Patient Physical Therapy Visit Information Visit Information Visit Type Treatment Note Visit Note [place] Visit Start Time 10:31 Visit Stop Time 11:15 Total Visit Minutes 44 Visit Number 6 PT-OP-B Current Condition Start: 12/02/20 15:54 Freq: Status: Active Protocol: Document 12/04/20 13:05 MB (Rec: 12/04/20 13:47 MB [id number]) Current Condition History of Current Condition Onset Date Long history of pain Current Complaints Right buttocks, thigh, calf and heel pain History of Current Condition Pt returns to PT after recent discharge for headaches and neck pain after cervical fusion. This order is for piriformis syndrome. Pt with recent trigger point injections to multiple neck and back muscles. He had his piriformis injected as well. He has had SI and spinal injections in the past. Pt has a long history of neck and back pain. He has history of two cervical fusions and one lumbar fusion, one lumbar laminectomy, right SI fusion, significant stock[place] to thorax, arms and head, probable degenerative changes in shoulders s/p arthroscopy surgeries for spur removals, migraine headaches. PMH also includes T4 fracture, thyroid disorder, vision problems, arthritis, hearing problems, fall off ladder in 2011, cardiac stents 2012 and 2013 and problem with plavix that caused pain. Pt reports 7/10 posterior neck , central LB, posterior right thigh and calf pain. He reports 6/10 right scapular, right buttucks and right heel pain. He reports 5/10 left buttocks and left heel pain. Prior Treatments and Tests Fusions, PT, injections Treatment Goals Patient/Caregiver Goals To decrease pain PT-OP-C Subjective Start: 12/02/20 15:54 Freq: Status: Active Protocol: Document 01/01/21 10:31 MB (Rec: 01/01/21 11:13 MB [id number]) OP-PT Subjective Patient Comments Patient Comments Pt had one headache the day after treatment. He lay down with his legs up and the headache went away. Yesterday, he went for a walk and then his back and legs hurt. They drove to [place] and then did a lot of shopping on the way back. PT-OP-J Posture/Palpation/Skin Start: 12/02/20 15:54 Freq: Status: Active Protocol: Document 12/04/20 13:05 MB (Rec: 12/04/20 16:10 MB [id number]) Posture Evaluation Comments Posture Comments Standing posture with shoes donned: forward head and decreased cervical lordosis, increased thoracic kyphosis, increased lumbar lordosis with post-surgical changes in spine, anterior tilt pelvis, right shoulder lower than the left, rounded shoulders, left iliac crest higher than the right. PT-OP-K Range of Motion Start: 12/02/20 15:54 Freq: Status: Active Protocol: Document 12/04/20 13:05 MB (Rec: 12/04/20 16:10 MB [id number]) Hip Goniometric Range of Motion Hip ROM Limitations Comments B passive SLR very limited at 15 deg and pt reporting increased discomfort in thoracic spine and hamstrings with SLR Very little passive hip ER and IR B and pt with increased discomfort and so not pushed PT-OP-M Strength Start: 12/02/20 15:54 Freq: Status: Active Protocol: Document 12/04/20 13:05 MB (Rec: 12/04/20 16:10 MB [id number]) Hip Strength Hip Manual Muscle Testing Left Flexion (L2) 4 Good Abduction 3+ Fair+ External Rotation 4 Good Right Flexion (L2) 3+ Fair+ Abduction 3 Fair Adduction 3+ Fair+ Knee Strength Knee Manual Muscle Testing Left Flexion (S2) 5 Normal Extension (L3) 5 Normal Right Flexion (S2) 5 Normal Extension (L3) 5 Normal Ankle/Foot Strength Ankle and Foot Manual Muscle Testing Left Dorsiflexion (L4) 5 Normal Right Dorsiflexion (L4) 5 Normal Toe Strength Toe Manual Muscle Testing Left Great Toe Extension 5 Normal Right Great Toe Extension 5 Normal PT-OP-Q Treatments Start: 12/02/20 15:54 Freq: Status: Active Protocol: Document 01/01/21 10:31 MB (Rec: 01/01/21 11:13 MB [id number]) Therapeutic Exercises Supine Exercises Core progression Supine Exercise Name Extensive ed and practice in TA contraction Comments Gentle lumbar rotation, HS, knee fall out Legs up on 55 cm therapy ball Equipment Used 55 cm ball Comments Abd drawing in, pulling ball up and rocking side to side Self-Care/Home Management Treatment Education Other Education Car position: not reaching too far for pedal with right foot , hips higher than knees, lumbar or ischial tuberosity support with towel roll, glute squeezes Body mechanics: assess job to be done: tummy tight, squeezing glutes and through legs, golfer's lift, objects close to self, push rather than pull, decrease time on laptop (no more than 20 minutes) PT-OP-T Assessment and Plan Start: 12/02/20 15:54 Freq: Status: Active Protocol: Document 01/01/21 10:31 MB (Rec: 01/01/21 11:13 MB [id number]) Physical Therapy Assessment Rehab Potential Rehabilitation Potential Fair Evaluation Complexity Number of Personal Factors/Comorbidities 1-2 Number of Body Systems Impaired 1-2 Clinical Presentation at Evaluation Evolving Impairments Impairments Balance,Functional Activities, Functional Mobility,Gait,Pain, Posture,ROM,Soft Tissue Mobility,Strength Other Impairments Personal factors include pt is hypoverbal about symptoms and he has tended to do things that exacerbate his symptoms in past PT duration. He has many areas of pain with history of multiple spinal surgeries. Body systems affected include musculoskeletal, neuromuscular . His clinical presentation is evolving. Other Concerns Fall Risk Yes Goals 5 Group Home Goal (LTG) Pt will gait train at least 1500 feet in 6 minutes to prepare for hiking by 02/04/21. LTG Duration 8 weeks 4 Group Home Goal (LTG) Pt will perform progressive HEP with I including flexibility, breathing, relaxation, balance and gentle strengthening to improve pain and gait by 02/04/21. LTG Duration 8 weeks 3 Electric Tool Repairer Goal (LTG) Pt will present with improved B passive SLR to 30 deg to reflect improved hamstring and LB mobility to improve functional flexion by 02/04/21. LTG Duration 8 weeks 2 Group Home Goal (LTG) Pt will report no more than 2/ 10 right LE pain with walking 1-1.5 miles with to allow return to hiking by 02/04/21. LTG Duration 8 weeks 1 Electric Tool Repairer Goal (LTG) Pt will present with an improved LEF score to reflect no more than 30% impairment to reflect improved functional mobility by 02/04/21. LTG Duration 8 weeks Assessment Summary Assessment Initiated abdominal drawing in and core progression gently today. Pt states today that he has been on a wedge pillow for GERD and discussed options about this as it can irritate LB. Progress exercises as pt tolerates. Physical Therapy Plan Frequency and Duration Frequency of Treatment 2x/Week Duration of Treatment 8 weeks Plan of Care Start Date 12/04/20 Plan of Care End Date 02/04/21 Therapeutic Interventions Therapeutic Interventions Aquatic Therapy,Balance Training,Canalithic Repositioning,Coordination Training,Gait Training,Home Exercise Program,Joint Mobilizations,Manual Therapy, Neuromuscular Re-education, Patient/Caregiver Education, Self-Care/Home Management,Soft Tissue Mobilization,Taping, Therapeutic Activities, Therapeutic Exercises Modalities Cold Pack/Ice Massage,Electric Stimulation,Hot Packs, Ultrasound Other Referrals/Consults Referrals/Consults Recommended Consider having pelvic floor PT seeing pt a couple of visits if appropriate Next Visit Focus/Plan Next Note Type Treatment Note Next Visit Plan Ongoing Counterstrain and therapeutic exercise progression
--- NOTE | 2021-01-06 10:27 | PT.OTN ---
Current Diagnoses Pain, unspecified (01/06/21) Physical Therapy Treatment Note PT-OP-A Visit Information Start: 12/02/20 15:54 Freq: Status: Active Protocol: Document 01/06/21 09:47 MB (Rec: 01/06/21 10:06 MB [id number]) Out-Patient Physical Therapy Visit Information Visit Information Visit Type Treatment Note Visit Note Medicare [place], [place]X Visit Start Time 09:46 Visit Stop Time 10:24 Total Visit Minutes 38 Visit Number 7 PT-OP-B Current Condition Start: 12/02/20 15:54 Freq: Status: Active Protocol: Document 12/04/20 13:05 MB (Rec: 12/04/20 13:47 MB [id number]) Current Condition History of Current Condition Onset Date Long history of pain Current Complaints Right buttocks, thigh, calf and heel pain History of Current Condition Pt returns to PT after recent discharge for headaches and neck pain after cervical fusion. This order is for piriformis syndrome. Pt with recent trigger point injections to multiple neck and back muscles. He had his piriformis injected as well. He has had SI and spinal injections in the past. Pt has a long history of neck and back pain. He has history of two cervical fusions and one lumbar fusion, one lumbar laminectomy, right SI fusion, significant stockton to thorax, arms and head, probable degenerative changes in shoulders s/p arthroscopy surgeries for spur removals, migraine headaches. PMH also includes T4 fracture, thyroid disorder, vision problems, arthritis, hearing problems, fall off ladder in 2011, cardiac stents 2012 and 2013 and problem with plavix that caused pain. Pt reports 7/10 posterior neck , central LB, posterior right thigh and calf pain. He reports 6/10 right scapular, right buttucks and right heel pain. He reports 5/10 left buttocks and left heel pain. Prior Treatments and Tests Fusions, PT, injections Treatment Goals Patient/Caregiver Goals To decrease pain PT-OP-C Subjective Start: 12/02/20 15:54 Freq: Status: Active Protocol: Document 01/06/21 09:47 MB (Rec: 01/06/21 10:06 MB [id number]) OP-PT Subjective Patient Comments Patient Comments Pt states that he is sore today and his headaches are better. He thinks Counterstrain is helpful. He saw Dr. Dewitt and he has three appointments for OMT for headaches. Pt thinks the exercises are helpful. For two nights, pt has not used GERD wedge and his back and neck have done better. PT-OP-J Posture/Palpation/Skin Start: 12/02/20 15:54 Freq: Status: Active Protocol: Document 12/04/20 13:05 MB (Rec: 12/04/20 16:10 MB [id number]) Posture Evaluation Comments Posture Comments Standing posture with shoes donned: forward head and decreased cervical lordosis, increased thoracic kyphosis, increased lumbar lordosis with post-surgical changes in spine, anterior tilt pelvis, right shoulder lower than the left, rounded shoulders, left iliac crest higher than the right. PT-OP-K Range of Motion Start: 12/02/20 15:54 Freq: Status: Active Protocol: Document 12/04/20 13:05 MB (Rec: 12/04/20 16:10 MB [id number]) Hip Goniometric Range of Motion Hip ROM Limitations Comments B passive SLR very limited at 15 deg and pt reporting increased discomfort in thoracic spine and hamstrings with SLR Very little passive hip ER and IR B and pt with increased discomfort and so not pushed PT-OP-M Strength Start: 12/02/20 15:54 Freq: Status: Active Protocol: Document 12/04/20 13:05 MB (Rec: 12/04/20 16:10 MB [id number]) Hip Strength Hip Manual Muscle Testing Left Flexion (L2) 4 Good Abduction 3+ Fair+ External Rotation 4 Good Right Flexion (L2) 3+ Fair+ Abduction 3 Fair Adduction 3+ Fair+ Knee Strength Knee Manual Muscle Testing Left Flexion (S2) 5 Normal Extension (L3) 5 Normal Right Flexion (S2) 5 Normal Extension (L3) 5 Normal Ankle/Foot Strength Ankle and Foot Manual Muscle Testing Left Dorsiflexion (L4) 5 Normal Right Dorsiflexion (L4) 5 Normal Toe Strength Toe Manual Muscle Testing Left Great Toe Extension 5 Normal Right Great Toe Extension 5 Normal PT-OP-Q Treatments Start: 12/02/20 15:54 Freq: Status: Active Protocol: Document 01/06/21 09:47 MB (Rec: 01/06/21 10:06 MB [id number]) Manual Therapy Treatment Other Other Manual Treatments Pt agrees to Counterstrain to assess and treat fascial tension and he presents with tension in the following fascial systems: LF and trigeminal nerve. After treating trigeminal nerve fascia B, LF improves and ALL is tight and so treated stacks in this system. PT-OP-T Assessment and Plan Start: 12/02/20 15:54 Freq: Status: Active Protocol: Document 01/06/21 09:47 MB (Rec: 01/06/21 10:06 MB [id number]) Physical Therapy Assessment Rehab Potential Rehabilitation Potential Fair Evaluation Complexity Number of Personal Factors/Comorbidities 1-2 Number of Body Systems Impaired 1-2 Clinical Presentation at Evaluation Evolving Impairments Impairments Balance,Functional Activities, Functional Mobility,Gait,Pain, Posture,ROM,Soft Tissue Mobility,Strength Other Impairments Personal factors include pt is hypoverbal about symptoms and he has tended to do things that exacerbate his symptoms in past PT duration. He has many areas of pain with history of multiple spinal surgeries. Body systems affected include musculoskeletal, neuromuscular . His clinical presentation is evolving. Other Concerns Fall Risk Yes Goals 5 Fpc Goal (LTG) Pt will gait train at least 1500 feet in 6 minutes to prepare for hiking by 02/04/21. LTG Duration 8 weeks 4 Family Partner Goal (LTG) Pt will perform progressive HEP with I including flexibility, breathing, relaxation, balance and gentle strengthening to improve pain and gait by 02/04/21. LTG Duration 8 weeks 3 Family Partner Goal (LTG) Pt will present with improved B passive SLR to 30 deg to reflect improved hamstring and LB mobility to improve functional flexion by 02/04/21. LTG Duration 8 weeks 2 Fpc Goal (LTG) Pt will report no more than 2/ 10 right LE pain with walking 1-1.5 miles with to allow return to hiking by 02/04/21. LTG Duration 8 weeks 1 Family Partner Goal (LTG) Pt will present with an improved LEF score to reflect no more than 30% impairment to reflect improved functional mobility by 02/04/21. LTG Duration 8 weeks Assessment Summary Assessment Counterstrain today and pt tolerates well. Will con't manual and exercise progression. Physical Therapy Plan Frequency and Duration Frequency of Treatment 2x/Week Duration of Treatment 8 weeks Plan of Care Start Date 12/04/20 Plan of Care End Date 02/04/21 Therapeutic Interventions Therapeutic Interventions Aquatic Therapy,Balance Training,Canalithic Repositioning,Coordination Training,Gait Training,Home Exercise Program,Joint Mobilizations,Manual Therapy, Neuromuscular Re-education, Patient/Caregiver Education, Self-Care/Home Management,Soft Tissue Mobilization,Taping, Therapeutic Activities, Therapeutic Exercises Modalities Cold Pack/Ice Massage,Electric Stimulation,Hot Packs, Ultrasound Other Referrals/Consults Referrals/Consults Recommended Consider having pelvic floor PT seeing pt a couple of visits if appropriate Next Visit Focus/Plan Next Note Type Treatment Note Next Visit Plan Con't Counterstrain and therapeutic exercise progression--consider band exercises standing for intrascapular and ER muscles, multifidi and balance
--- NOTE | 2021-01-09 13:42 | PT.OTN ---
Current Diagnoses Pain, unspecified (01/09/21) Physical Therapy Treatment Note PT-OP-A Visit Information Start: 12/02/20 15:54 Freq: Status: Active Protocol: Document 01/09/21 13:00 MB (Rec: 01/09/21 13:41 MB [id number]) Out-Patient Physical Therapy Visit Information Visit Information Visit Type Treatment Note Visit Note [place], [place] Visit Start Time 13:00 Visit Stop Time 13:45 Total Visit Minutes 45 Visit Number 8 PT-OP-B Current Condition Start: 12/02/20 15:54 Freq: Status: Active Protocol: Document 12/04/20 13:05 MB (Rec: 12/04/20 13:47 MB [id number]) Current Condition History of Current Condition Onset Date Long history of pain Current Complaints Right buttocks, thigh, calf and heel pain History of Current Condition Pt returns to PT after recent discharge for headaches and neck pain after cervical fusion. This order is for piriformis syndrome. Pt with recent trigger point injections to multiple neck and back muscles. He had his piriformis injected as well. He has had SI and spinal injections in the past. Pt has a long history of neck and back pain. He has history of two cervical fusions and one lumbar fusion, one lumbar laminectomy, right SI fusion, significant stock[place] to thorax, arms and head, probable degenerative changes in shoulders s/p arthroscopy surgeries for spur removals, migraine headaches. PMH also includes T4 fracture, thyroid disorder, vision problems, arthritis, hearing problems, fall off ladder in 2011, cardiac stents 2012 and 2013 and problem with plavix that caused pain. Pt reports 7/10 posterior neck , central LB, posterior right thigh and calf pain. He reports 6/10 right scapular, right buttucks and right heel pain. He reports 5/10 left buttocks and left heel pain. Prior Treatments and Tests Fusions, PT, injections Treatment Goals Patient/Caregiver Goals To decrease pain PT-OP-C Subjective Start: 12/02/20 15:54 Freq: Status: Active Protocol: Document 01/09/21 13:00 MB (Rec: 01/09/21 13:41 MB [id number]) OP-PT Subjective Patient Comments Patient Comments Pt has had bad headaches the past 4-5 days. Drugs take the edge off. Walking is a significant issue for his right SI pain. Pt has been raking the yard for two days and is taking breaks. PT-OP-J Posture/Palpation/Skin Start: 12/02/20 15:54 Freq: Status: Active Protocol: Document 12/04/20 13:05 MB (Rec: 12/04/20 16:10 MB [id number]) Posture Evaluation Comments Posture Comments Standing posture with shoes donned: forward head and decreased cervical lordosis, increased thoracic kyphosis, increased lumbar lordosis with post-surgical changes in spine, anterior tilt pelvis, right shoulder lower than the left, rounded shoulders, left iliac crest higher than the right. PT-OP-K Range of Motion Start: 12/02/20 15:54 Freq: Status: Active Protocol: Document 12/04/20 13:05 MB (Rec: 12/04/20 16:10 MB [id number]) Hip Goniometric Range of Motion Hip ROM Limitations Comments B passive SLR very limited at 15 deg and pt reporting increased discomfort in thoracic spine and hamstrings with SLR Very little passive hip ER and IR B and pt with increased discomfort and so not pushed PT-OP-M Strength Start: 12/02/20 15:54 Freq: Status: Active Protocol: Document 12/04/20 13:05 MB (Rec: 12/04/20 16:10 MB [id number]) Hip Strength Hip Manual Muscle Testing Left Flexion (L2) 4 Good Abduction 3+ Fair+ External Rotation 4 Good Right Flexion (L2) 3+ Fair+ Abduction 3 Fair Adduction 3+ Fair+ Knee Strength Knee Manual Muscle Testing Left Flexion (S2) 5 Normal Extension (L3) 5 Normal Right Flexion (S2) 5 Normal Extension (L3) 5 Normal Ankle/Foot Strength Ankle and Foot Manual Muscle Testing Left Dorsiflexion (L4) 5 Normal Right Dorsiflexion (L4) 5 Normal Toe Strength Toe Manual Muscle Testing Left Great Toe Extension 5 Normal Right Great Toe Extension 5 Normal PT-OP-Q Treatments Start: 12/02/20 15:54 Freq: Status: Active Protocol: Document 01/09/21 13:00 MB (Rec: 01/09/21 13:41 MB [id number]) Manual Therapy Treatment Other Other Manual Treatments Pt agrees to Counterstrain to assess and treat fascial tension and he presents with tension in the following fascial systems: mesentery and dura and PT treats stacks in these systems. Visceral massage for iliocecal valve and colon movement and taught pt PT-OP-T Assessment and Plan Start: 12/02/20 15:54 Freq: Status: Active Protocol: Document 01/09/21 13:00 MB (Rec: 01/09/21 13:41 MB [id number]) Physical Therapy Assessment Rehab Potential Rehabilitation Potential Fair Evaluation Complexity Number of Personal Factors/Comorbidities 1-2 Number of Body Systems Impaired 1-2 Clinical Presentation at Evaluation Evolving Impairments Impairments Balance,Functional Activities, Functional Mobility,Gait,Pain, Posture,ROM,Soft Tissue Mobility,Strength Other Impairments Personal factors include pt is hypoverbal about symptoms and he has tended to do things that exacerbate his symptoms in past PT duration. He has many areas of pain with history of multiple spinal surgeries. Body systems affected include musculoskeletal, neuromuscular . His clinical presentation is evolving. Other Concerns Fall Risk Yes Goals 5 Director Telehealth Goal (LTG) Pt will gait train at least 1500 feet in 6 minutes to prepare for hiking by 02/04/21. LTG Duration 8 weeks 4 Retirement Goal (LTG) Pt will perform progressive HEP with I including flexibility, breathing, relaxation, balance and gentle strengthening to improve pain and gait by 02/04/21. LTG Duration 8 weeks 3 Retirement Goal (LTG) Pt will present with improved B passive SLR to 30 deg to reflect improved hamstring and LB mobility to improve functional flexion by 02/04/21. LTG Duration 8 weeks 2 Retirement Goal (LTG) Pt will report no more than 2/ 10 right LE pain with walking 1-1.5 miles with to allow return to hiking by 02/04/21. LTG Duration 8 weeks 1 Retirement Goal (LTG) Pt will present with an improved LEF score to reflect no more than 30% impairment to reflect improved functional mobility by 02/04/21. LTG Duration 8 weeks Assessment Summary Assessment Manual and Counterstrain today to assist with reports of pain and pt performs well. Progress exercises next treatment date. Physical Therapy Plan Frequency and Duration Frequency of Treatment 2x/Week Duration of Treatment 8 weeks Plan of Care Start Date 12/04/20 Plan of Care End Date 02/04/21 Therapeutic Interventions Therapeutic Interventions Aquatic Therapy,Balance Training,Canalithic Repositioning,Coordination Training,Gait Training,Home Exercise Program,Joint Mobilizations,Manual Therapy, Neuromuscular Re-education, Patient/Caregiver Education, Self-Care/Home Management,Soft Tissue Mobilization,Taping, Therapeutic Activities, Therapeutic Exercises Modalities Cold Pack/Ice Massage,Electric Stimulation,Hot Packs, Ultrasound Other Referrals/Consults Referrals/Consults Recommended Consider having pelvic floor PT seeing pt a couple of visits if appropriate Next Visit Focus/Plan Next Note Type Treatment Note Next Visit Plan Similar: Counterstrain and therapeutic exercise progression--consider band exercises standing for intrascapular and ER muscles, multifidi and balance
--- NOTE | 2021-01-12 13:09 | PT.OTN ---
Current Diagnoses Pain, unspecified (01/12/21) Physical Therapy Treatment Note PT-OP-A Visit Information Start: 12/02/20 15:54 Freq: Status: Active Protocol: Document 01/12/21 12:15 MB (Rec: 01/12/21 13:09 MB [id number]) Out-Patient Physical Therapy Visit Information Visit Information Visit Type Treatment Note Visit Note [place], [place] Visit Start Time 12:15 Visit Stop Time 13:00 Total Visit Minutes 45 Visit Number 9 PT-OP-B Current Condition Start: 12/02/20 15:54 Freq: Status: Active Protocol: Document 12/04/20 13:05 MB (Rec: 12/04/20 13:47 MB [id number]) Current Condition History of Current Condition Onset Date Long history of pain Current Complaints Right buttocks, thigh, calf and heel pain History of Current Condition Pt returns to PT after recent discharge for headaches and neck pain after cervical fusion. This order is for piriformis syndrome. Pt with recent trigger point injections to multiple neck and back muscles. He had his piriformis injected as well. He has had SI and spinal injections in the past. Pt has a long history of neck and back pain. He has history of two cervical fusions and one lumbar fusion, one lumbar laminectomy, right SI fusion, significant stock[place] to thorax, arms and head, probable degenerative changes in shoulders s/p arthroscopy surgeries for spur removals, migraine headaches. PMH also includes T4 fracture, thyroid disorder, vision problems, arthritis, hearing problems, fall off ladder in 2011, cardiac stents 2012 and 2013 and problem with plavix that caused pain. Pt reports 7/10 posterior neck , central LB, posterior right thigh and calf pain. He reports 6/10 right scapular, right buttucks and right heel pain. He reports 5/10 left buttocks and left heel pain. Prior Treatments and Tests Fusions, PT, injections Treatment Goals Patient/Caregiver Goals To decrease pain PT-OP-C Subjective Start: 12/02/20 15:54 Freq: Status: Active Protocol: Document 01/12/21 12:15 MB (Rec: 01/12/21 13:09 MB [id number]) OP-PT Subjective Patient Comments Patient Comments Pt has a cut on the top of his head and he doesn't know what happened. Pt states that he is reasonably well. He hasn't had the headaches. He has right hip pain and had trouble trying to walk with . Pt states that he doesn't seem to be making any progress with the exercises. PT-OP-J Posture/Palpation/Skin Start: 12/02/20 15:54 Freq: Status: Active Protocol: Document 12/04/20 13:05 MB (Rec: 12/04/20 16:10 MB [id number]) Posture Evaluation Comments Posture Comments Standing posture with shoes donned: forward head and decreased cervical lordosis, increased thoracic kyphosis, increased lumbar lordosis with post-surgical changes in spine, anterior tilt pelvis, right shoulder lower than the left, rounded shoulders, left iliac crest higher than the right. PT-OP-K Range of Motion Start: 12/02/20 15:54 Freq: Status: Active Protocol: Document 12/04/20 13:05 MB (Rec: 12/04/20 16:10 MB [id number]) Hip Goniometric Range of Motion Hip ROM Limitations Comments B passive SLR very limited at 15 deg and pt reporting increased discomfort in thoracic spine and hamstrings with SLR Very little passive hip ER and IR B and pt with increased discomfort and so not pushed PT-OP-M Strength Start: 12/02/20 15:54 Freq: Status: Active Protocol: Document 12/04/20 13:05 MB (Rec: 12/04/20 16:10 MB [id number]) Hip Strength Hip Manual Muscle Testing Left Flexion (L2) 4 Good Abduction 3+ Fair+ External Rotation 4 Good Right Flexion (L2) 3+ Fair+ Abduction 3 Fair Adduction 3+ Fair+ Knee Strength Knee Manual Muscle Testing Left Flexion (S2) 5 Normal Extension (L3) 5 Normal Right Flexion (S2) 5 Normal Extension (L3) 5 Normal Ankle/Foot Strength Ankle and Foot Manual Muscle Testing Left Dorsiflexion (L4) 5 Normal Right Dorsiflexion (L4) 5 Normal Toe Strength Toe Manual Muscle Testing Left Great Toe Extension 5 Normal Right Great Toe Extension 5 Normal PT-OP-Q Treatments Start: 12/02/20 15:54 Freq: Status: Active Protocol: Document 01/12/21 12:15 MB (Rec: 01/12/21 13:09 MB [id number]) Therapeutic Exercises Standing Exercises Shoulder ER with band Side bilateral Comments 5 reps slowly, cues for how to hold level 2 band Multifidi engaged and heel raises Side bilateral Comments 5 reps slowly, level 2 band at each side Scapular retraction and shoulder extension arms straight Side bilateral Comments 10 reps slowly, level 2 band Manual Therapy Treatment Other Other Manual Treatments Pt agrees to Counterstrain to assess and treat fascial tension. Pt presents with tension in ALL and PT treats stacks in this system. PT-OP-T Assessment and Plan Start: 12/02/20 15:54 Freq: Status: Active Protocol: Document 01/12/21 12:15 MB (Rec: 01/12/21 13:09 MB [id number]) Physical Therapy Assessment Rehab Potential Rehabilitation Potential Fair Evaluation Complexity Number of Personal Factors/Comorbidities 1-2 Number of Body Systems Impaired 1-2 Clinical Presentation at Evaluation Evolving Impairments Impairments Balance,Functional Activities, Functional Mobility,Gait,Pain, Posture,ROM,Soft Tissue Mobility,Strength Other Impairments Personal factors include pt is hypoverbal about symptoms and he has tended to do things that exacerbate his symptoms in past PT duration. He has many areas of pain with history of multiple spinal surgeries. Body systems affected include musculoskeletal, neuromuscular . His clinical presentation is evolving. Other Concerns Fall Risk Yes Goals 5 Batting Machine Operator Insulation Goal (LTG) Pt will gait train at least 1500 feet in 6 minutes to prepare for hiking by 02/04/21. LTG Duration 8 weeks 4 Mcfp Goal (LTG) Pt will perform progressive HEP with I including flexibility, breathing, relaxation, balance and gentle strengthening to improve pain and gait by 02/04/21. LTG Duration 8 weeks 3 Batting Machine Operator Insulation Goal (LTG) Pt will present with improved B passive SLR to 30 deg to reflect improved hamstring and LB mobility to improve functional flexion by 02/04/21. LTG Duration 8 weeks 2 Mcfp Goal (LTG) Pt will report no more than 2/ 10 right LE pain with walking 1-1.5 miles with to allow return to hiking by 02/04/21. LTG Duration 8 weeks 1 Batting Machine Operator Insulation Goal (LTG) Pt will present with an improved LEF score to reflect no more than 30% impairment to reflect improved functional mobility by 02/04/21. LTG Duration 8 weeks Assessment Summary Assessment Progressed strengthening this date. Pt con't with pain. Con' t to monitor. Physical Therapy Plan Frequency and Duration Frequency of Treatment 2x/Week Duration of Treatment 8 weeks Plan of Care Start Date 12/04/20 Plan of Care End Date 02/04/21 Therapeutic Interventions Therapeutic Interventions Aquatic Therapy,Balance Training,Canalithic Repositioning,Coordination Training,Gait Training,Home Exercise Program,Joint Mobilizations,Manual Therapy, Neuromuscular Re-education, Patient/Caregiver Education, Self-Care/Home Management,Soft Tissue Mobilization,Taping, Therapeutic Activities, Therapeutic Exercises Modalities Cold Pack/Ice Massage,Electric Stimulation,Hot Packs, Ultrasound Other Referrals/Consults Referrals/Consults Recommended Consider having pelvic floor PT seeing pt a couple of visits if appropriate Next Visit Focus/Plan Next Note Type Treatment Note Next Visit Plan Counterstrain and balance
--- NOTE | 2021-01-14 15:29 | PT.OTN ---
Current Diagnoses Pain, unspecified (01/14/21) Physical Therapy Treatment Note PT-OP-A Visit Information Start: 12/02/20 15:54 Freq: Status: Active Protocol: Document 01/14/21 12:16 MB (Rec: 01/14/21 13:04 MB [id number]) Out-Patient Physical Therapy Visit Information Visit Information Visit Type Progress Note Visit Note [place], [place] Visit Start Time 12:16 Visit Stop Time 13:00 Total Visit Minutes 44 Visit Number 10 PT-OP-B Current Condition Start: 12/02/20 15:54 Freq: Status: Active Protocol: Document 12/04/20 13:05 MB (Rec: 12/04/20 13:47 MB [id number]) Current Condition History of Current Condition Onset Date Long history of pain Current Complaints Right buttocks, thigh, calf and heel pain History of Current Condition Pt returns to PT after recent discharge for headaches and neck pain after cervical fusion. This order is for piriformis syndrome. Pt with recent trigger point injections to multiple neck and back muscles. He had his piriformis injected as well. He has had SI and spinal injections in the past. Pt has a long history of neck and back pain. He has history of two cervical fusions and one lumbar fusion, one lumbar laminectomy, right SI fusion, significant [place] to thorax, arms and head, probable degenerative changes in shoulders s/p arthroscopy surgeries for spur removals, migraine headaches. PMH also includes T4 fracture, thyroid disorder, vision problems, arthritis, hearing problems, fall off ladder in 2011, cardiac stents 2012 and 2013 and problem with plavix that caused pain. Pt reports 7/10 posterior neck , central LB, posterior right thigh and calf pain. He reports 6/10 right scapular, right buttucks and right heel pain. He reports 5/10 left buttocks and left heel pain. Prior Treatments and Tests Fusions, PT, injections Treatment Goals Patient/Caregiver Goals To decrease pain PT-OP-C Subjective Start: 12/02/20 15:54 Freq: Status: Active Protocol: Document 01/14/21 12:16 MB (Rec: 01/14/21 13:04 MB [id number]) OP-PT Subjective Patient Comments Patient Comments Pt states that he had one point needled by Dr. Fitzgerald-- one glute point. He arrives with order for fitted orthotics from Dr. Fitzgerald. Overall, pt states that he is not better since starting PT. PT-OP-J Posture/Palpation/Skin Start: 12/02/20 15:54 Freq: Status: Active Protocol: Document 12/04/20 13:05 MB (Rec: 12/04/20 16:10 MB [id number]) Posture Evaluation Comments Posture Comments Standing posture with shoes donned: forward head and decreased cervical lordosis, increased thoracic kyphosis, increased lumbar lordosis with post-surgical changes in spine, anterior tilt pelvis, right shoulder lower than the left, rounded shoulders, left iliac crest higher than the right. PT-OP-K Range of Motion Start: 12/02/20 15:54 Freq: Status: Active Protocol: Document 12/04/20 13:05 MB (Rec: 12/04/20 16:10 MB [id number]) Hip Goniometric Range of Motion Hip ROM Limitations Comments B passive SLR very limited at 15 deg and pt reporting increased discomfort in thoracic spine and hamstrings with SLR Very little passive hip ER and IR B and pt with increased discomfort and so not pushed PT-OP-M Strength Start: 12/02/20 15:54 Freq: Status: Active Protocol: Document 12/04/20 13:05 MB (Rec: 12/04/20 16:10 MB [id number]) Hip Strength Hip Manual Muscle Testing Left Flexion (L2) 4 Good Abduction 3+ Fair+ External Rotation 4 Good Right Flexion (L2) 3+ Fair+ Abduction 3 Fair Adduction 3+ Fair+ Knee Strength Knee Manual Muscle Testing Left Flexion (S2) 5 Normal Extension (L3) 5 Normal Right Flexion (S2) 5 Normal Extension (L3) 5 Normal Ankle/Foot Strength Ankle and Foot Manual Muscle Testing Left Dorsiflexion (L4) 5 Normal Right Dorsiflexion (L4) 5 Normal Toe Strength Toe Manual Muscle Testing Left Great Toe Extension 5 Normal Right Great Toe Extension 5 Normal PT-OP-Q Treatments Start: 12/02/20 15:54 Freq: Status: Active Protocol: Document 01/14/21 12:16 MB (Rec: 01/14/21 15:28 MB [id number]) Gait Training Gait Activity Gait assessment Comments See comments under assessment today 6MWT Comments Pt gait trains 1626 feet in 6 minutes with increasing radicular right LE pain with increased gait distance that con't at rest Self-Care/Home Management Treatment Education Other Education Extensive discussion and education to pt and . Pt has not been progressing towards many OPPT goals and so plan will be to add a balance exercise for home and perform any further training and then d/c pt. Discussed difference between dry needling, trigger point injections, ablations and epidurals. Discussed options going forward including pain clinic in [place] and pt asks if he should have right screw (SI) looked at and this is an option, too. Ed pt that life after three spinal fusions is difficult d/t fixed spinal changes and resulting pressures to other areas. Ed pt in in benefits of more formalized orthotic assessment by Gh[facility] at [facility]. Ongoing ed in pt taking breaks and performing exercises. Unsure how many lifestyle changes he will make . PT-OP-T Assessment and Plan Start: 12/02/20 15:54 Freq: Status: Active Protocol: Document 01/14/21 12:16 MB (Rec: 01/14/21 13:04 MB [id number]) Physical Therapy Assessment Rehab Potential Rehabilitation Potential Fair Evaluation Complexity Number of Personal Factors/Comorbidities 1-2 Number of Body Systems Impaired 1-2 Clinical Presentation at Evaluation Evolving Impairments Impairments Balance,Functional Activities, Functional Mobility,Gait,Pain, Posture,ROM,Soft Tissue Mobility,Strength Other Impairments Personal factors include pt is hypoverbal about symptoms and he has tended to do things that exacerbate his symptoms in past PT duration. He has many areas of pain with history of multiple spinal surgeries. Body systems affected include musculoskeletal, neuromuscular . His clinical presentation is evolving. Other Concerns Fall Risk Yes Goals 5 Senior Care Goal (LTG) Pt will gait train at least 1500 feet in 6 minutes to prepare for hiking by 02/04/21. 01/14/21: Pt gait trains 1626 feet in 6 minutes with reports of 5, then 6 and then 7/10 pain that starts in his right SI area and travels downwards to hamstring, calf and heel. LTG Duration Met 4 Senior Care Goal (LTG) Pt will perform progressive HEP with I including flexibility, breathing, relaxation, balance and gentle strengthening to improve pain and gait by 02/04/21. 01/14/21: Pt is performing some of his exercises without pain LTG Duration Partially met 3 Senior Care Goal (LTG) Pt will present with improved B passive SLR to 30 deg to reflect improved hamstring and LB mobility to improve functional flexion by 02/04/21. 01/14/21: Radicular pain already with gait and so did not provoke with SLR LTG Duration Not tested due to increased pain 2 Senior Care Goal (LTG) Pt will report no more than 2/ 10 right LE pain with walking 1-1.5 miles with to allow return to hiking by 02/04/21. 01/14/21: Pt con't with very high pain with walking LTG Duration Not met 1 Director Goal (LTG) Pt will present with an improved LEF score to reflect no more than 30% impairment to reflect improved functional mobility by 02/04/21. 01/14/21: LEF score reflects 70 % impairment LTG Duration Not met Assessment Summary Assessment Pt put heel wedge in right shoe today. He had it from a chiropractor from years ago, before his right sacral fusion . PT observes gait with bare feet and right leg does not seem functionally shorter than the left. He has decreased hip movement with gait. In bare feet, right iliac crest is higher than the left. Feet are different in WB with overpronation right rearfoot. This PT is not a specialist with orthotics and so recommended that he see another PT, perhaps [facility] at [facility], once he discharges from this PT's services. Overall, PT had not made an improvement in his right hip pain. His presentation is tricky, chronic and multifactorial with history of cervical, lumbar and right SI fusions and chronic pain symptoms. He met gait distance goal for 6MWT but right SI pain radiated into right LE and increased in intensity with walking for 6 minutes. He is performing progressive exercises to tolerance and will add a balance exercise in future PT sessions. He has not met SLR, LEF or hiking goals. Anticipate 2 more PT sessions to add a balance exercise for home and review any other exercises and questions as needed. Physical Therapy Plan Frequency and Duration Frequency of Treatment 1x/Week Duration of Treatment 2 weeks Plan of Care Start Date 01/14/21 Plan of Care End Date 01/27/21 Therapeutic Interventions Therapeutic Interventions Aquatic Therapy,Balance Training,Canalithic Repositioning,Coordination Training,Gait Training,Home Exercise Program,Joint Mobilizations,Manual Therapy, Neuromuscular Re-education, Patient/Caregiver Education, Self-Care/Home Management,Soft Tissue Mobilization,Taping, Therapeutic Activities, Therapeutic Exercises Modalities Cold Pack/Ice Massage,Electric Stimulation,Hot Packs, Ultrasound Next Visit Focus/Plan Next Note Type Treatment Note Next Visit Plan Balance exercise
--- NOTE | 2021-01-23 12:55 | PT.OTN ---
Current Diagnoses Pain, unspecified (01/23/21) Physical Therapy Treatment Note PT-OP-A Visit Information Start: 12/02/20 15:54 Freq: Status: Active Protocol: Document 01/23/21 12:16 MB (Rec: 01/23/21 12:55 MB [id number]) Out-Patient Physical Therapy Visit Information Visit Information Visit Type Treatment Note Visit Note [place] Visit Start Time 12:16 Visit Stop Time 12:46 Total Visit Minutes 30 Visit Number 11 PT-OP-B Current Condition Start: 12/02/20 15:54 Freq: Status: Active Protocol: Document 12/04/20 13:05 MB (Rec: 12/04/20 13:47 MB [id number]) Current Condition History of Current Condition Onset Date Long history of pain Current Complaints Right buttocks, thigh, calf and heel pain History of Current Condition Pt returns to PT after recent discharge for headaches and neck pain after cervical fusion. This order is for piriformis syndrome. Pt with recent trigger point injections to multiple neck and back muscles. He had his piriformis injected as well. He has had SI and spinal injections in the past. Pt has a long history of neck and back pain. He has history of two cervical fusions and one lumbar fusion, one lumbar laminectomy, right SI fusion, significant [place] to thorax, arms and head, probable degenerative changes in shoulders s/p arthroscopy surgeries for spur removals, migraine headaches. PMH also includes T4 fracture, thyroid disorder, vision problems, arthritis, hearing problems, fall off ladder in 2011, cardiac stents 2012 and 2013 and problem with plavix that caused pain. Pt reports 7/10 posterior neck , central LB, posterior right thigh and calf pain. He reports 6/10 right scapular, right buttucks and right heel pain. He reports 5/10 left buttocks and left heel pain. Prior Treatments and Tests Fusions, PT, injections Treatment Goals Patient/Caregiver Goals To decrease pain PT-OP-C Subjective Start: 12/02/20 15:54 Freq: Status: Active Protocol: Document 01/23/21 12:16 MB (Rec: 01/23/21 12:55 MB [id number]) OP-PT Subjective Patient Comments Patient Comments Pt is doing poorly. He was moving dirt and felt a pop in the L5 area. It was Tuesday of this week (4 days ago). PT-OP-J Posture/Palpation/Skin Start: 12/02/20 15:54 Freq: Status: Active Protocol: Document 12/04/20 13:05 MB (Rec: 12/04/20 16:10 MB [id number]) Posture Evaluation Comments Posture Comments Standing posture with shoes donned: forward head and decreased cervical lordosis, increased thoracic kyphosis, increased lumbar lordosis with post-surgical changes in spine, anterior tilt pelvis, right shoulder lower than the left, rounded shoulders, left iliac crest higher than the right. PT-OP-K Range of Motion Start: 12/02/20 15:54 Freq: Status: Active Protocol: Document 12/04/20 13:05 MB (Rec: 12/04/20 16:10 MB [id number]) Hip Goniometric Range of Motion Hip ROM Limitations Comments B passive SLR very limited at 15 deg and pt reporting increased discomfort in thoracic spine and hamstrings with SLR Very little passive hip ER and IR B and pt with increased discomfort and so not pushed PT-OP-M Strength Start: 12/02/20 15:54 Freq: Status: Active Protocol: Document 12/04/20 13:05 MB (Rec: 12/04/20 16:10 MB [id number]) Hip Strength Hip Manual Muscle Testing Left Flexion (L2) 4 Good Abduction 3+ Fair+ External Rotation 4 Good Right Flexion (L2) 3+ Fair+ Abduction 3 Fair Adduction 3+ Fair+ Knee Strength Knee Manual Muscle Testing Left Flexion (S2) 5 Normal Extension (L3) 5 Normal Right Flexion (S2) 5 Normal Extension (L3) 5 Normal Ankle/Foot Strength Ankle and Foot Manual Muscle Testing Left Dorsiflexion (L4) 5 Normal Right Dorsiflexion (L4) 5 Normal Toe Strength Toe Manual Muscle Testing Left Great Toe Extension 5 Normal Right Great Toe Extension 5 Normal PT-OP-Q Treatments Start: 12/02/20 15:54 Freq: Status: Active Protocol: Document 01/23/21 12:16 MB (Rec: 01/23/21 12:55 MB [id number]) Therapeutic Exercises Standing Exercises Tandem in corner Comments Ed pt to perform this up to 2' each leg behind once pain is better Other Exercises Verbally reviewed HEP Comments Performed this today in preparation for d/c Self-Care/Home Management Treatment Education Other Education Used spinal model and reviewed MRI from 2019 to go over anatomy of lumbar spine and SI area, recommend follow-up with spinal surgeon about his questions about lumbar and spinal fusions, con't with Dr. Dewitt for headache work, other options for osteopathic work, ed to perform exercises only if pain is better and not provoked, re-ed on better safety choices with activities . PT-OP-T Assessment and Plan Start: 12/02/20 15:54 Freq: Status: Active Protocol: Document 01/23/21 12:16 MB (Rec: 01/23/21 12:55 MB [id number]) Physical Therapy Assessment Goals 4 Nursing Home Goal (LTG) Pt will perform progressive HEP with I including flexibility, breathing, relaxation, balance and gentle strengthening to improve pain and gait by 02/04/21. 01/23/21: Pt cannot do any exercises at this time d/t pain. LTG Duration Not met Assessment Summary Assessment Pt has plateaued with PT and in fact, has worse pain after a pop in his back earlier in the week. Ed pt in a balance exercise to perform when he is feeling better. Recommend follow-up with spinal surgeon about lumbar changes and SI fusion. Extensive ed to pt and about anatomy of the area and recommendations. D/c PT.
== END 2021-01-27 11:31 | disposition home or self-care (01) ==
LOC: PHYS 12:15
PROVIDERS: PCP Nurse Practitioner Family; Referring Provider Nurse Practitioner Family; Visit Provider Nurse Practitioner Family
DX: R52 Pain, unspecified (principal)
CPT/HCPCS: 97110; 97116; 97140; 97162; 97535

== ENCOUNTER → 2021-01-31 15:04 | Outpatient (CLI) | payer MEDICARE, OTHER, SELFPAY ==
[2020-06-19 22:47] VITALS: BMI 26.1
--- NOTE | 2021-01-31 15:07 | DI.MRI.S_ITS ---
PROCEDURE: MR LUMBAR SPINE WO CON INDICATIONS: patient has appointment with neurosurgery on 02/03 Additional history: Prior lumbar spine fusion. TECHNIQUE: Noncontrast sagittal T1 spin echo and T2 fast echo, sagittal STIR, axial T1 and T2 fast spin echo through the lumbar spine. In cases with scoliosis, additional coronal T2 fast spin echo may be performed. COMPARISON: [facility], CT, CT LUMBAR SPINE WO CON, 07/05/2018, 16:20. [facility], CT, CT CHEST ABDOMEN W CON, 06/30/2019, 21:38. [facility], MR, MR LUMBAR SPINE WO CON, 05/31/2019, 17:36. FINDINGS: Image quality: Excellent. Alignment and Curvature: 5 lumbar type vertebral body. No significant scoliosis. There is grade 1 retrolisthesis of L1 on L2, L2 on L3, and grade 1 anterolisthesis of L4 on L5. Overall this is similar to the prior exams. There is pedicle screw fixation at L3-L4 with intervertebral body spacer. There is a screw fixation at the right sacrum. Bone Marrow: Marrow is of normal overall signal. No acute vertebral body compression fractures. Prior mild compression fractures at T12 and L1 are unchanged. Spinal Cord: Conus medullaris terminates at superior endplate L2. Visualized cord demonstrates normal signal and size. Paraspinous Soft Tissues: Heterogeneous T2 signal within the posterior paraspinal musculature. No loculated fluid collection. T12-L1: Disc desiccation. Loss of intervertebral disc space height. Mild broad-based disc bulge. No significant central canal stenosis. No significant neural foraminal narrowing. L1-L2: Disc desiccation. Loss of intervertebral disc space height. Mild broad-based disc bulge. Mild central canal stenosis. Mild neural foraminal narrowing. L2-L3: Disc desiccation. Mild broad-based disc bulge. Mild central canal stenosis. Mild neural foraminal narrowing. No significant change. L3-L4: Pedicle screw fixation at this level. Intervertebral body spacer. Mild diffuse disc bulge. Facet joint hypertrophy. Mild central canal stenosis. Mild neural foraminal narrowing. No significant change. L4-L5: Grade 1 anterolisthesis of L4 on L5. Loss of intervertebral disc space height. Disc desiccation. Mild broad-based disc bulge. Mild central canal stenosis similar to the prior MRI. Severe right neural foraminal narrowing. Moderate left neural foraminal narrowing. Facet joint hypertrophy. No significant change. L5-S1: Loss of intervertebral disc space height. Disc desiccation. Mild broad-based disc bulge. Mild central canal stenosis. Moderate bilateral neural foraminal narrowing. Left L5 nerve root appears unchanged. Facet joint hypertrophy. No significant change. IMPRESSION: 1. L3-L4 pedicle screw fixation appears stable. Unchanged alignment. 2. L4-L5 severe right and moderate left neural foraminal narrowing is similar to the prior exam. Multilevel facet joint hypertrophy. 3. Multilevel mild central canal stenosis. Dictated by: Jorje Brunner M.D. on 01/31/2021 at 15:28 Approved by: Jorje Brunner M.D. on 01/31/2021 at 15:55
== END ==
PROVIDERS: PCP Family Medicine; Referring Provider Family Medicine; Visit Provider Family Medicine
DX: M48.061 Spinal stenosis, lumbar region without neurogenic claudication (principal); M54.30 Sciatica, unspecified side; M54.9 Dorsalgia, unspecified; M48.07 Spinal stenosis, lumbosacral region; M54.2 Cervicalgia; G89.29 Other chronic pain; Z98.1 Arthrodesis status
CPT/HCPCS: 72148

== ENCOUNTER → 2021-03-26 10:02 | Outpatient (CLI) | payer MEDICARE, OTHER, SELFPAY ==
[2020-06-19 22:47] VITALS: BMI 26.1
[2021-03-26 13:22] LABS: BUN Creatinine Ratio 15.4 (6-22); Blood Urea Nitrogen 14 mg/dL (9-20); Estimated Glomerular Filt Rate > 60.0 mL/min (>60)
== END ==
PROVIDERS: PCP Family Medicine; Referring Provider Neurological Surgery; Visit Provider Neurological Surgery
DX: M46.1 Sacroiliitis, not elsewhere classified (principal); M54.31 Sciatica, right side
CPT/HCPCS: 36415; 82565; 84520

== ENCOUNTER → 2021-03-30 09:15 | Outpatient (CLI) | payer MEDICARE, OTHER, SELFPAY ==
[2020-06-19 22:47] VITALS: BMI 26.1
--- NOTE | 2021-03-30 | DI.CT.S_ITS ---
PROCEDURE: CT PELVIS W CON INDICATIONS: Sacroiliitis, SCIATICA TECHNIQUE: After the administration of intravenous contrast, 5 mm thick sections acquired from the iliac crests to the symphysis. 5 mm coronal and sagittal reformats were acquired. For radiation dose reduction, the following was used: automated exposure control, adjustment of mA and/or kV according to patient size. COMPARISON: [facility], MR, MR LUMBAR SPINE WO CON, 01/31/2021, 15:17. FINDINGS: Image quality: Excellent. Peritoneum and bowel: Bowel loops demonstrate normal wall thickness and caliber. No free fluid or air. Genitourinary: Bladder wall thickness is normal. Enlarged prostate gland is seen with mass effect on floor of urinary bladder. Nodes and vessels: No iliac, pelvic, or inguinal adenopathy by size criteria. Iliac vessels demonstrate normal size and enhancement. Bones: Patient is status post prior laminectomy and posterior fusion at L3-4 level. Grade 1 anterolisthesis of L4 on L5 is seen. No acute compression fracture is seen in visualized lower lumbar spine vertebral bodies. No hardware loosening or failure. There is prior surgery involving right hemipelvis with 2 surgical screws extending through right sacroiliac joint. Bridging osteophytes are noted involving superior anterior aspect of bilateral sacroiliac joints. No ankylosis is seen in rest of bilateral sacroiliac joints. No bony erosive changes are seen. No fracture or dislocation. No gross hardware loosening or failure. Bilateral hip joint osteoarthritic changes are seen without evidence of avascular necrosis of femoral head. Miscellaneous: No inguinal hernias. IMPRESSION: 1. Prior surgery involving right hemipelvis and right sacroiliac joint. Prior laminectomy and fusion at L3-4 level. No evidence of hardware loosening or failure. 2. Bridging osteophyte formation involving superior and anterior aspect of bilateral sacroiliac joints. Rest of bilateral sacroiliac joint show no evidence of bony erosion or ankylosis. No pelvic fracture or dislocation. 3. No pelvic free fluid or free air. No abnormal bowel wall thickening. Bladder wall thickness is normal. Enlarged prostate gland with mass effect on floor of urinary bladder. Dictated by: Jm Rodrigues M.D. on 03/30/2021 at 11:26 Approved by: Jm Rodrigues M.D. on 03/30/2021 at 12:11
--- NOTE | 2021-03-30 | DI.NM.S_ITS ---
PROCEDURE: SD BONE SCAN WHOLE BODY RADIOPHARMACEUTICAL: 20.0 mCi Tc-99m MDP IV. INDICATIONS: Sacroiliitis, SCIATICA TECHNIQUE: Delayed whole-body scintigrams were obtained approximately 3-4 hours after intravenous injection of radiotracer. Anterior and posterior views were acquired from vertex to feet. Additional left and right oblique views of the pelvis and hips were obtained. COMPARISON: [facility], CT, CT ANGIO CHEST PE PROTOCOL, 06/19/2020, 22:43. [place], PET/CT WHOLE BODY EXTENDED, 01/19/2017, 11:17. [place], [place], BONE SCAN WHOLE BODY, 12/31/2016, 11:21. [place], BONE SCAN WHOLE BODY, 06/27/2013, 11:53. [facility], CT, CT PELVIS W CON, 03/30/2021, 10:59. FINDINGS: No lesions are identified in skull, sternum, clavicles, scapulae, ribs, bony pelvis, and visualized shafts of the long bones. There is low level increased uptake in cervical, thoracic and lumbar spine with distribution indistinguishable from degenerative disc and facet disease; early metastasis to spine could be obscured by degenerative changes. There are foci of increased periarticular activity involving shoulders, sternoclavicular joints, elbows, wrists, hips, SI joints, knees, ankles and feet, compatible with degenerative/arthritic changes. IMPRESSION: 1. Low-level increased uptake in spine is most likely degenerative in nature. 2. Degenerative/arthritic changes in multiple central and peripheral joints, including sacroiliac joints. Dictated by: Seema Day M.D. on 03/30/2021 at 14:57 Approved by: Seema Day M.D. on 03/30/2021 at 15:05
== END ==
PROVIDERS: PCP Family Medicine; Referring Provider Neurological Surgery; Visit Provider Neurological Surgery
DX: M46.1 Sacroiliitis, not elsewhere classified (principal); M54.31 Sciatica, right side; Z98.1 Arthrodesis status
CPT/HCPCS: 72193; 78306; A9503

== ENCOUNTER → 2021-04-24 10:34 | Outpatient (CLI) | payer MEDICARE, OTHER, SELFPAY ==
[2020-06-19 22:47] VITALS: BMI 26.1
== END ==
PROVIDERS: PCP Family Medicine; Referring Provider Specialist; Visit Provider Specialist
DX: R97.20 Elevated prostate specific antigen [PSA] (principal)
CPT/HCPCS: 36415; 84153

== ENCOUNTER → 2021-06-30 09:48 | Outpatient (CLI) | payer MEDICARE, OTHER, SELFPAY ==
[2020-06-19 22:47] VITALS: BMI 26.1
[2021-06-30 11:15] LABS: Alanine Aminotransferase 31 IU/L (<50); Albumin 4.3 g/dL (3.5-5.0); Albumin Globulin Ratio 1.5 (1.0-2.8); Alkaline Phosphatase 61 U/L (38-126); Aspartate Aminotransferase 40 IU/L (17-59); Cholesterol 182 mg/dL (140-199); Globulin 2.8 g/dL (1.7-4.1); HDL Cholesterol 45 mg/dL (40-60); HEMOLYSIS 16 (0-50); LDL Cholesterol Calculated 87 mg/dL (<100); Total Protein 7.1 g/dL (6.3-8.2); Triglycerides 252 mg/dL (35-150)
== END ==
PROVIDERS: PCP Family Medicine; Referring Provider Internal Medicine Cardiovascular Disease; Visit Provider Internal Medicine Cardiovascular Disease
DX: I25.10 Atherosclerotic heart disease of native coronary artery without angina pectoris (principal)
CPT/HCPCS: 36415; 80061; 80076

== ENCOUNTER 2021-07-14 15:09 | Emergency (ER) | payer MEDICARE, OTHER, SELFPAY ==
[2020-06-19 22:47] VITALS: BMI 26.1
[2021-07-14] VITALS (9 sets, daily range): BP systolic 137–163; BP diastolic 78–94; PULSE 67–84; RESP 14–18; TEMP 36.9; O2SAT 96–99; BMI 27.2
--- NOTE | 2021-07-14 16:05 | DI.CT.S_ITS ---
PROCEDURE: CT HEAD/BRAIN WO CON INDICATIONS: fall, hit head TECHNIQUE: Noncontrast 4.5 mm thick angled axial sections acquired from the foramen magnum to the vertex, with coronal and sagittal reformats. For radiation dose reduction, the following was used: automated exposure control, adjustment of mA and/or kV according to patient size. COMPARISON: None. FINDINGS: Image quality: Excellent. CSF spaces: Basal cisterns are patent. No extra-axial fluid collections. Ventricles are normal in size and shape. Brain: No midline shift. No intracranial masses or hemorrhage. Rossi-white matter interface is normal. Skull and face: Calvarium and visualized facial bones are intact, without suspicious lesions. Sinuses: Visualized sinuses and mastoids are clear. IMPRESSION: No acute intracranial abnormality. Dictated by: Jun Lynne M.D. on 07/14/2021 at 16:31 Approved by: Jun Lynne M.D. on 07/14/2021 at 16:31
--- NOTE | 2021-07-14 18:18 | ED_ITS ---
HPI - Fall General Chief Complaint: Fall Stated Complaint: head lac; bleeding Time Seen by Provider: 07/14/21 17:58 Source: patient Mode of arrival: Ambulatory History of Present Illness HPI Narrative: 76-year-old male nonsmoker with history of GERD and hypothyroidism presents with a friend and a chief complaint of an accidental fall just prior to arrival it resulted in a small laceration. He states that he was working with a boat vikas ler that started getting way from him and in attempting to slow its movement he tripped and fell backwards striking his head. He denies any neck or back pain nor chest pain or shortness of breath. He denies any loss of consciousness, nausea, vomiting or other neurologic symptoms such as blurred vision or trouble with speech. He is acting at his baseline and has full recall of the event. He takes no blood thinners. He does have some pain in the small laceration on his scalp. His tetanus is up-to-date. He is activated as a modified trauma given his age greater than 65 and fall with suspected injury Related Data Home Medications Medication Instructions Recorded Confirmed omeprazole 10 mg capsule,delayed 10 mg PO DAILY 06/19/20 06/25/21 release rosuvastatin 20 mg tablet (Crestor) 20 mg PO TID #0 tab 04/30/21 06/25/21 tramadol 50 mg tablet 50 mg PO .PRN tab 04/30/21 06/25/21 Previous Rx's Medication Instructions Recorded levothyroxine 75 mcg tablet 75 mcg PO DAILY #90 tab 01/30/21 pregabalin 200 mg capsule (Lyrica) 200 mg PO BID #180 cap 02/13/21 tadalafil 5 mg tablet (Cialis) 5 mg PO DAILY PRN #60 tab 04/30/21 naratriptan 2.5 mg tablet 2.5 mg PO .COMPLEX PRN #27 tab 05/11/21 Allergies Allergy/AdvReac Type Severity Reaction Status Date / Time clopidogrel [From Plavix] Allergy Verified 07/14/21 15:18 honey AdvReac Gastrointestinal Verified 07/14/21 15:18 Upset Review of Systems Review of Systems Narrative: GENERAL: Denies chills, fatigue, malaise, fever, sweats. HEENT: Denies sinus pain, ear pain, sore throat, difficulty swallowing, dizziness. RESPIRATORY: Denies dyspnea, cough, wheezing, hemoptysis, sputum. CARDIOVASCULAR: Denies chest pain, palpitations, orthopnea, edema, GASTROINTESTINAL: Denies nausea, vomiting, abdominal pain, diarrhea, constipation, melena. : Denies dysuria, frequency, incontinence, hematuria, urinary retention. MUSCULOSKELETAL: denies weakness, joint pain, or bony pain SKIN: See HPI NEUROLOGIC: Denies weakness, headache, numbness, change in speech, confusion, seizures, incoordination. PSYCHIATRIC: No concerning psychosocial issues. 12 point review of systems is negative except for those stated above Patient History Medical History Actinic keratosis Ankle pain (~2001) Carpal tunnel syndrome (~2014) Cervical somatic dysfunction Chronic migraine without aura, with status migrainosus Chronic neck and back pain Chronic right shoulder pain Cranial somatic dysfunction Erectile dysfunction Fibromyalgia (~2014) Fractures (~1983) GERD (gastroesophageal reflux disease) (~2011) Headache (~1995) Hearing loss Hemicrania continua Herpes (~1995) History of urinary incontinence (~2019) Hypothyroidism (acquired) Lower urinary tract symptoms (LUTS) Lumbar region somatic dysfunction Melanoma (~2009) Migraines (~1995) Post-void dribbling Rib pain on right side Sciatic pain Segmental and somatic dysfunction of abdomen and other regions Segmental and somatic dysfunction of rib cage Shoulder pain (~1999) Skin cancer (~2012) Sleep apnea (~2014) Thoracic region somatic dysfunction Tinnitus (~2009) Vasculogenic erectile dysfunction Surgical History Anesthesia History of carpal tunnel surgery History of fusion of cervical spine (~1995) History of fusion of cervical spine History of heart artery stent (~2012) History of hernia repair History of laminectomy (~2003) History of lumbar fusion (~2000) Pyloric stenosis (~194) S/P TURP (status post transurethral resection of prostate) Family History Father CAD (coronary artery disease) Diabetes mellitus History of heart disease Hypertension Congestive heart failure Mother Congestive heart failure Sister Cancer Hypertension Hyperlipidemia Social History household members: friend(s) Smoking Status: Never smoker Smoking Status: Never smoker alcohol intake frequency: 0-2 drinks per day Substance Use Type: does not use Exam Narrative Exam Narrative: GENERAL: [76 year old patient appears stated age. Well-developed patient, in mild distress. GCS 15 HEAD: Small abrasion on occiput with a 0.25 cm, minimally active bleeding puncture laceration. There is no evidence of depressed skull fracture. No evidence of foreign body. EYES: Pupils equal round and reactive. Extraocular motions intact. No scleral icterus. No injection or drainage. ENT: Nose without bleeding, purulent drainage. Throat without erythema, tonsillar hypertrophy or exudate. Airway patent. NECK: Trachea midline. Non tender CARDIOVASCULAR: Regular rate and rhythm without murmurs, gallops, or rubs. RESPIRATORY: Clear to auscultation. Breath sounds equal bilaterally. No wheezes, rales, or rhonchi. GASTROINTESTINAL: Abdomen soft, non-tender, nondistended. EXTREMITIES: No edema or joint tenderness. BACK: Nontender without deformity or crepitance. No flank tenderness. NEURO: AOx3. SKIN: No rash or erythema of visible areas Initial Vital Signs Initial Vital Signs: Vital Signs Temperature 98.4 F 07/14/21 15:14 Pulse Rate 84 07/14/21 15:14 Respiratory Rate 14 07/14/21 15:14 Blood Pressure 163/89 H 07/14/21 15:14 Pulse Oximetry 96 07/14/21 15:14 Procedures Laceration Repair Laceration 1: Site: scalp Size (cm): 0.25 Depth: simple, single layer Local Anesthetic: lidocaine 1% and with bicarb Skin layer closed with: boyd Scores [facility] Head Rule Age <16 years old: No Patient on blood thinners: No Seizure after injury: No Exclusion: Patient NOT Excluded, Proceed to next steps GCS < 15 at 2 hr post trauma: No Suspected open or depressed skull fracture: No Any sign of basilar skull fracture (hemotympanum, raccoon eyes, Baugh's sign, CSF yue-/rhinorrhea): No Two or more episodes of vomiting: No Age greater or equal to 65 years: Yes Retrograde amnesia to the event greater or equal to 30 min: No Dangerous Mechanism (pedestrian vs. mv, occupant ejected from mv, fall from >3 ft or > 5 stairs): No Recommendation: Consider CT. The [facility] Head CT Rule cannot rule out need for Imaging. Course Orders Ordered: ED Orders 07/14/21 16:05 CT head/brain wo con Stat Vital Signs Vital signs: Vital Signs - 8 hr 07/14/21 15:14 07/14/21 17:50 07/14/21 17:51 Temperature 98.4 F Pulse Rate 84 71 Respiratory Rate 14 Blood Pressure 163/89 H 155/78 H Pulse Oximetry 96 97 97 07/14/21 17:59 07/14/21 18:00 07/14/21 18:20 Temperature Pulse Rate 70 69 69 Respiratory Rate Blood Pressure 151/94 H 143/87 H 137/90 Pulse Oximetry 99 99 98 07/14/21 18:30 07/14/21 18:40 07/14/21 19:04 Temperature Pulse Rate 67 69 68 Respiratory Rate 18 Blood Pressure 143/84 H 143/84 H Pulse Oximetry 99 99 98 MDM - Fall Imaging Data CT scan - head: Radiologist's Impression: Alfredo Hightower??76??M??1945 ? Allergy/Adv: clopidogrel, honey Close Head CT (Signed) Jun Lynne - 07/14/[address] (Signed) Jm Rodrigues - 03/30/21 Bone Scan Nuclear Medicine (Signed) Darinel Day - 03/30/21 Lumbar Spine MRI (Signed) Myesha,Jorje - 01/31/21 Modified Barium Swallow (Signed) Bola Lowry - 10/16/20 Chest X-Ray (Signed) Bola Lowry - 07/16/20 Modified Barium Swallow (Signed) Javier Chaudhry - 06/23/20 Modified Barium Swallow (Signed) Darinel Day - 06/20/20 Chest CTA (Signed) Darinel Day - 06/19/20 Telemetry Strips 06/19/20 Chest X-Ray (Signed) Jorje Brunner - 06/19/20 Shoulder X-Ray (Signed) Tyree Chappell - 06/13/20 Chest X-Ray (Signed) Brent Brian - 09/12/19 Chest X-Ray (Signed) Darinel Day - 08/02/19 Chest X-Ray (Signed) Ralph Lepe - 07/03/19 Chest/Abdomen CT (Signed) Juan Orozco - 06/30/19 Lumbar Spine MRI (Signed) MartinAni wesleyelda - 05/31/19 Lumbar Spine X-Ray (Signed) Bola Lowry - 01/30/19 Brain MRI (Signed) MagnoliaHuyen valadeze - 01/12/19 Lumbar Spine X-Ray (Signed) DennysMary - 07/10/[address] (Signed) IsidoroJavier - 07/05/[address] (Signed) Cece Adair - 05/08/18 Cervical Spine MRI (Signed) MartinCaesarjeffry - 04/07/18 Lumbar Spine MRI (Signed) Bola Lowry - 03/27/18 Cervical Spine X-Ray (Signed) Bola Lowry - 03/27/18 Thoracic Spine MRI (Signed) Cece Adair - 03/14/18 Chest X-Ray (Signed) BarbAugieshruthi - 12/01/17 Launch?[place] [address] CT Scan Report Signed Patient: Alfredo Hightower MR#: [id number] : 1945 Acct:[id number] Age/Sex: 76 / M Date of Service: 07/14/21 Loc: ED Accession Number: [id number] ?? Procedure: CT head/brain wo con Ordering Provider: Terence Rojas D.O. PROCEDURE:? CT HEAD/BRAIN WO CON ? INDICATIONS:? fall, hit head ? TECHNIQUE:? Noncontrast 4.5 mm thick angled axial sections acquired from the foramen magnum to the vertex, with coronal and sagittal reformats.? For radiation dose reduction, the following was used:? automated exposure control, adjustment of mA and/or kV according to patient size.? ? COMPARISON:? None. ? FINDINGS:? Image quality:? Excellent.? ? CSF spaces:? Basal cisterns are patent.? No extra-axial fluid collections.? Ventricles are normal in size and shape.? ? Brain:? No midline shift.? No intracranial masses or hemorrhage.? Rossi-white matter interface is normal.? ? Skull and face:? Calvarium and visualized facial bones are intact, without suspicious lesions.? ? Sinuses:? Visualized sinuses and mastoids are clear.? ? IMPRESSION:? No acute intracranial abnormality. ? ? Dictated by: Jun Lynne M.D. on 07/14/2021 at 16:31 ? ? Approved by: Jun Lynne M.D. on 07/14/2021 at 16:31 ? Discharge Plan Departure Patient Disposition: Home Clinical Impression: Laceration of occipital region of scalp Instructions: How to Prevent Falls Activity Restrictions/Additional Instructions: Please keep the wound clean and dry to the best of your ability. Please monitor for signs of infection such as redness to the skin or increasing pain. Have the sutures/boyd removed by your doctor in about 7 days. If you are unable to get into your doctor, we would be happy to remove the sutures/boyd in that same timeframe. Prescriptions: No Action rosuvastatin [Crestor] 20 mg tablet 20 mg PO TID Qty: 0 0RF naratriptan 2.5 mg tablet 2.5 mg PO .COMPLEX PRN (Reason: migraine headache) Qty: 27 3RF Rx Instructions: 2.5 mg PO 1 at onset, may repeat after 2 hours PRN; Lyrica 200 mg capsule 200 mg PO BID Qty: 180 1RF Rx Instructions: administer at approximately same time(s) each day levothyroxine 75 mcg tablet 75 mcg PO DAILY Qty: 90 3RF omeprazole 10 mg Capsule,Delayed Release(Dr/Ec) 10 mg PO DAILY 0RF tramadol 50 mg tablet 50 mg PO .PRN 0RF tadalafil [Cialis] 5 mg tablet 5 mg PO DAILY PRN (Reason: sexual activity) Qty: 60 3RF Rx Instructions: Administer 1 to 4 tablets p.o. 1-2 hours before sexual activity as needed. Referrals: Ori Dewitt DO [Primary Care Provider] -
== END 2021-07-14 19:05 | disposition home or self-care (01) ==
PROVIDERS: Emergency Provider Emergency Medicine; PCP Family Medicine
DX: S01.01XA Laceration without foreign body of scalp, initial encounter (principal); W01.10XA Fall on same level from slipping, tripping and stumbling with subsequent striking against unspecified object, initial encounter
CPT/HCPCS: 12001; 70450; 99283; 99284

== ENCOUNTER → 2021-08-12 12:37 | Outpatient (CLI) | payer MEDICARE, OTHER, SELFPAY ==
[2020-06-19 22:47] VITALS: BMI 26.1
--- NOTE | 2021-08-12 12:40 | DI.RAD.S_ITS ---
PROCEDURE: XR RIBS RT MIN 3V W CXR 1V INDICATIONS: chronic rib pain ribs 7 and 8 TECHNIQUE: 2 views of the right ribs were acquired, along with a single view chest. COMPARISON: None. FINDINGS: Surgical changes and devices: None. Bones and chest wall: No fractures or dislocations. No suspicious bony lesions. Overlying soft tissues appear unremarkable. Lungs and pleura: No pleural effusions or pneumothorax. Lungs appear clear. Mediastinum: Mediastinal contours appear normal. Heart size is normal. IMPRESSION: No evidence of displaced right rib fracture. No evidence acute pulmonary process. Dictated by: Tyree Chappell M.D. on 08/12/2021 at 13:49 Approved by: Tyree Chappell M.D. on 08/12/2021 at 13:50
== END ==
PROVIDERS: PCP Family Medicine; Referring Provider Family Medicine; Visit Provider Family Medicine
DX: R07.81 Pleurodynia (principal)
CPT/HCPCS: 71101

== ENCOUNTER → 2022-02-09 08:45 | Outpatient (CLI) | payer MEDICARE, OTHER, SELFPAY ==
[2020-06-19 22:47] VITALS: BMI 26.1
[2022-02-09 10:29] LABS: Free T3, Triiodothyronine Free 3.34 pg/mL (2.77-5.27); Free T4, Direct Thyroxine 1.13 ng/dL (0.78-2.19)
[2022-02-09 10:43] LABS: Thyroid Stimulating Hormone 2.99 uIU/mL (0.47-4.68)
== END ==
PROVIDERS: PCP Family Medicine; Referring Provider Family Medicine; Visit Provider Family Medicine
DX: E03.9 Hypothyroidism, unspecified (principal)
CPT/HCPCS: 36415; 84439; 84443; 84481

== ENCOUNTER → 2022-05-12 07:23 | Outpatient (CLI) | payer MEDICARE, OTHER, SELFPAY ==
[2020-06-19 22:47] VITALS: BMI 26.1
--- NOTE | 2022-05-12 07:00 | DI.RAD.S_ITS ---
PROCEDURE: XR CERVICAL SPINE 2V OR 3V INDICATIONS: NECK PAIN TECHNIQUE: 3 view(s) of the cervical spine were acquired. COMPARISON: [facility], CR, XR CERVICAL SPINE 4V OR 5V, 03/27/2018, 13:03. FINDINGS: Bones: Prior ACDF from the C3-C4 through the C5-C6 level with hardware in expected positions. Moderate multilevel facet joint arthropathy and uncovertebral hypertrophy. Bones are osteopenic. Soft tissues: No prevertebral soft tissue swelling. IMPRESSION: 1. Prior ACDF from the C3-C4 through the C5-C6 level with hardware in expected position. 2. 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 Dictated by: Bill RODRIGUEZ Interpreted: Sahara Recinos MD on 05/12/2022 at 8:18 Approved by: Sahara Recinos M.D. on 05/18/2022 at 14:16
[2022-05-12 10:52] LABS: Prostate Specific Antigen 1.76 ng/mL (0.10-4.00)
== END ==
LOC: LAB 07:24 → RAD 07:30
PROVIDERS: PCP Family Medicine; Referring Provider Specialist; Visit Provider Specialist
DX: M47.812 Spondylosis without myelopathy or radiculopathy, cervical region (principal); M85.88 Other specified disorders of bone density and structure, other site; M54.2 Cervicalgia; N52.9 Male erectile dysfunction, unspecified; R39.9 Unspecified symptoms and signs involving the genitourinary system; Z98.1 Arthrodesis status
CPT/HCPCS: 36415; 72040; 84153

== ENCOUNTER → 2022-10-05 09:22 | Outpatient (CLI) | payer MEDICARE, OTHER, SELFPAY ==
[2020-06-19 22:47] VITALS: BMI 26.1
[2022-10-05 10:47] LABS: Cholesterol 190 mg/dL (140-199); HDL Cholesterol 47 mg/dL (40-60); LDL Cholesterol Calculated 101 mg/dL (<100); Triglycerides 211 mg/dL (35-150)
== END ==
PROVIDERS: Family Provider Family Medicine; PCP Family Medicine; Referring Provider Internal Medicine Cardiovascular Disease; Visit Provider Internal Medicine Cardiovascular Disease
DX: I25.10 Atherosclerotic heart disease of native coronary artery without angina pectoris (principal)
CPT/HCPCS: 36415; 80061

== ENCOUNTER 2022-10-07 09:30 | Outpatient (RCR) | payer MEDICARE, OTHER, SELFPAY ==
[2020-06-19 22:47] VITALS: BMI 26.1
--- NOTE | 2022-08-02 14:50 | PT.OIE ---
Current Diagnoses Spondylosis without myelopathy or radiculopathy, lumbar region (08/02/22) Abnormal posture (08/02/22) Weakness (08/02/22) Past Medical History (Last Reviewed 05/31/22 @ 12:14 by Paul Solano MD) Actinic keratosis Ankle pain (~2001) Carpal tunnel syndrome (~2014) Cervical somatic dysfunction Chronic migraine without aura, with status migrainosus Chronic neck and back pain Chronic right shoulder pain Cough Cranial somatic dysfunction Erectile dysfunction Fever Fibromyalgia (~2014) Fractures (~1983) GERD (gastroesophageal reflux disease) (~2011) Headache (~1995) Hearing loss Hemicrania continua Herpes (~1995) History of urinary incontinence (~2019) Hypothyroidism (acquired) Lower urinary tract symptoms (LUTS) Lumbar region somatic dysfunction Melanoma (~2009) Migraines (~1995) Pelvic somatic dysfunction Post-void dribbling Removal of staple Rib pain on right side Sacral region somatic dysfunction Scalp laceration Sciatic pain Segmental and somatic dysfunction of abdomen and other regions Segmental and somatic dysfunction of rib cage Shoulder pain (~1999) Skin cancer (~2012) Sleep apnea (~2014) Somatic dysfunction of lower extremity Stiffness of finger joint of right hand Thoracic region somatic dysfunction Tinnitus (~2009) Vasculogenic erectile dysfunction Past Surgical History (Last Reviewed 05/31/22 @ 12:14 by Paul Solano MD) Anesthesia History of carpal tunnel surgery History of fusion of cervical spine (~1995) History of fusion of cervical spine History of heart artery stent (~2012) History of hernia repair History of laminectomy (~2003) History of lumbar fusion (~2000) Pyloric stenosis (~194) S/P TURP (status post transurethral resection of prostate) Visit Care Team Role Provider Type David Dewitt DO Family Provider Physician Primary Care Provider Specialty: Family Practice Address: [address] [place] [address], [id number] Email: Jose Carlos Khalil Attending Provider Non-Staff Referring Provider Specialty: Neurosurgery Address: [address] [place] [address], [id number] Email: Physical Therapy Initial Evaluation PT-OP-A Visit Information Start: 08/01/22 08:34 Freq: Status: Active Protocol: Document 08/02/22 08:08 SAK (Rec: 08/02/22 09:02 SAK [id number]) Out-Patient Physical Therapy Visit Information Visit Information Visit Type Initial Evaluation Visit Start Time 08:08 Visit Stop Time 09:02 Total Visit Minutes 54 Visit Number 1 Evaluation Information Evaluation Date 08/02/22 Precautions Precautions PMH: Actinic keratosis Ankle pain (~2001) Carpal tunnel syndrome (~2014) Cervical somatic dysfunction Chronic migraine without aura, with status migrainosus Chronic neck and back pain Chronic right shoulder pain Cranial somatic dysfunction Erectile dysfunction Fibromyalgia (~2014) Fractures (~1983) GERD (gastroesophageal reflux disease) (~2011) Headache (~1995) Hearing loss Hemicrania continua Herpes (~1995) History of urinary incontinence (~2019) Hypothyroidism (acquired) Lower urinary tract symptoms ( LUTS) Lumbar region somatic dysfunction Melanoma (~2009) Migraines (~1995) Pelvic somatic dysfunction Post-void dribbling Removal of staple Rib pain on right side Sacral region somatic dysfunction Scalp laceration Sciatic pain Segmental and somatic dysfunction of abdomen and other regions Segmental and somatic dysfunction of rib cage Shoulder pain (~1999) Skin cancer (~2012) Sleep apnea (~2014) Somatic dysfunction of lower extremity Stiffness of finger joint of right hand Thoracic region somatic dysfunction Tinnitus (~2009) Vasculogenic erectile dysfunction Surgical History (Reviewed @ 21:11 by Skinny Bishop DO) Anesthesia History of carpal tunnel surgery History of fusion of cervical spine (~1995) History of fusion of cervical spine History of heart artery stent (~2012) History of hernia repair History of laminectomy (~2003) History of lumbar fusion (~ 2000) Pyloric stenosis (~194) S/P TURP (status post transurethral resection of prostate) PT-OP-B Current Condition Start: 08/01/22 08:34 Freq: Status: Active Protocol: Document 08/02/22 08:08 SAK (Rec: 08/02/22 09:02 SAK [id number]) Current Condition History of Current Condition Onset Date 20+ years Current Complaints LBP, difficulty sleeping and walking History of Current Condition Right SI fusion 2000. Most recently hemilaminectomy and foraminiotomy 01/07/23 L4-S[address] Surgery [address] Dr. Khalil. Immediately after surgery some decrease in pain but pain has been gradually increasing again, taking Methocarbomol and Tramadol with minimal effect. Not doing anything else for pain. Referral messed up took a long time to get in for PT. L34 is fused. Pain is constant, increases with bending forward to right and left (left greater than right), slight with backward. N/T ronal LE's. Walking sometimes drags right heel. Pain worst with laying down, best with standing. Prior Treatments and Tests As above Treatment Goals Patient/Caregiver Goals Improve ability to walk and sleep Prior Functional Status Baseline Function- ADL's Modified Independent Baseline Function- Mobility Modified Independent Baseline Function- Gait could walk Current Functional Impairments (Reported) Functional Limitations- ADL's painful Functional Limitations- Mobility/Gait painful and limited distance Functional Limitations- Work/School retired Functional Limitations- Recreation/ unable to do any physical Hobbies hobbies due to pain PT-OP-C Subjective Start: 08/01/22 08:34 Freq: Status: Active Protocol: Document 08/02/22 08:08 [facility] (Rec: 08/03/22 13:45 [facility] [id number]) OP-PT Pain Assessment Pain Assessment Grid Paper Pain Assessment Grid Completed Yes Location ronal lumbar spine and post LE's Intensity 8 Description Aching,Pressure,Spasm,Tender, Tightness,Throbbing PT-OP-G Mobility & Gait Start: 08/01/22 08:34 Freq: Status: Active Protocol: Document 08/02/22 08:08 [facility] (Rec: 08/03/22 14:50 [facility] [id number]) OP Gait Assessment Gait Gait Assistance Required: Independent Assistive Devices Assistive Device None Gait Deviations General Gait Pattern Antalgic,Decreased Stride Length,Festinating,Flexed Trunk Factors Limiting Gait Function Factors Limiting Gait Function Pain PT-OP-H Neuro Start: 08/01/22 08:34 Freq: Status: Active Protocol: Document 08/02/22 08:08 SAK (Rec: 08/03/22 14:50 [facility] [id number]) Sensation Evaluation Gross Sensation Gross Sensation Left LE Impaired,Right LE Impaired Sensation Description Paresthesia,Pain Deep Tendon Reflex & Clonus Assessment Deep Tendon Reflex Bilateral Patellar Deep Tendon Reflex 1+ Diminished PT-OP-J Posture/Palpation/Skin Start: 08/01/22 08:34 Freq: Status: Active Protocol: Document 08/02/22 08:08 [facility] (Rec: 08/02/22 09:02 [facility] [id number]) Posture Evaluation Position Standing Head/C-Spine Posture Forward Head T-Spine Posture Increased Kyphosis L-Spine Posture Flattened Shoulder Posture (L) Rounded,(R) Rounded Scapula Posture (L) Protracted,(R) Protracted Arm Posture (L) Internally Rotated,(R) Internally Rotated Pelvis Posture Posterior Tilted Hip Posture (L) Externally Rotated,(R) Externally Rotated Palpation Assessment Location lumbar Palpation Findings Soft Tissue Tightness,Muscle Guarding,Tenderness PT-OP-L Special Tests Start: 08/01/22 08:34 Freq: Status: Active Protocol: Document 08/02/22 08:08 [facility] (Rec: 08/03/22 14:50 [facility] [id number]) Special Tests Lumbar Spine Special Tests Manual Traction Test Results positive decrease in pain Darian Test Results positive for muscle tightness Straight Leg Raise Test Results positive for mod muscle tightness PT-OP-M Strength Start: 08/01/22 08:34 Freq: Status: Active Protocol: Document 08/02/22 08:08 [facility] (Rec: 08/03/22 14:50 [facility] [id number]) Trunk Strength Trunk Manual Muscle Testing Flexion 3+ Fair+ Extension 3+ Fair+ Core Stabilization poor Hip Strength Hip Manual Muscle Testing ronal Flexion (L2) 3+ Fair+ Extension (S1) 3 Fair Abduction 3 Fair External Rotation 3+ Fair+ Internal Rotation 3+ Fair+ Knee Strength Knee Manual Muscle Testing ronal Flexion (S2) 4 Good Extension (L3) 4 Good Ankle/Foot Strength Ankle and Foot Manual Muscle Testing Right Dorsiflexion (L4) 4- Good- Plantarflexion (S1) 4- Good- Left Dorsiflexion (L4) 4 Good Plantarflexion (S1) 4 Good PT-OP-T Assessment and Plan Start: 08/01/22 08:34 Freq: Status: Active Protocol: Document 08/02/22 08:08 [facility] (Rec: 08/02/22 09:02 [facility] [id number]) Physical Therapy Assessment Rehab Potential Rehabilitation Potential Good Evaluation Complexity Number of Personal Factors/Comorbidities 1-2 Number of Body Systems Impaired 3 Clinical Presentation at Evaluation Evolving Impairments Impairments Activity Tolerance,Pain, Posture,Strength Goals 3 Impairment interrupted sleep, hard to walk any distance Short Term Goal (STG) Patient to report ability to sleep for 4 hour stretches at a time without waking due to pain and able to walk for 15 min without inc in pain STG Duration 09/02/22 Party Plan Sales Director Goal (LTG) Patient to report ability sleep for 5-6 hour stretch at a time without waking due to pain and be able to walk for 30 min without inc in pain LTG Duration 10/02/22 2 Impairment activity tolerance Impairment Oswestry score 28% Short Term Goal (STG) dec Oswestry to no greater than 20% as measure of improved activity tolerance STG Duration 09/02/22 Prison Goal (LTG) Decrease Oswestry to no greater than 15% as measure of improved activity tolerance LTG Duration 10/02/22 1 Impairment pain Impairment LBP and ronal LE pain 10/30, spikes to 8/10 at times Party Plan Sales Director Goal (LTG) Decrase pain to no greater than 4/10 with all usual activities LTG Duration 10/01/22 Assessment Summary Assessment Patient presents to PT with function-limiting LBP and LE pain of chronic nature s/p lumbar laminectomy 01/07/22, also right SI fusion 2009. Reports some improvement in pain immediately after his surgery in 2021 but pain has gradually increased again, interrupts sleep, and doesn't allow him to walk greater than household distances. Patient signs and symptoms consistent with nerve root impingemnetn and he has muscle weakness and dec ROM and well as muscle spasms throughout lumbar spine . Feel he would benefit from PT to decrease his pain and improve his ability to sleep, walk and do all other usual functional activities. We discussed POC and he was in agreement. Physical Therapy Plan Frequency and Duration Frequency of Treatment 2x/Week Duration of treatment (weeks) 8 Plan of Care Start Date 08/02/22 Plan of Care End Date 10/02/22 Therapeutic Interventions Therapeutic Interventions Home Exercise Program,Manual Therapy,Neuromuscular Re- education,Patient/Caregiver Education,Self-Care/Home Management,Soft Tissue Mobilization,Taping, Therapeutic Activities, Therapeutic Exercises Modalities Cold Pack/Ice Massage,Electric Stimulation,Hot Packs, Traction- Mechanical, Ultrasound Next Visit Focus/Plan Next Note Type Treatment Note Next Visit Plan Review HEP, gentle progressio of strengthening, flexibility, and core stab exercises. Modalities and manual therapy PRN.
--- NOTE | 2022-08-02 14:50 | PT.OPPOC ---
Physical, Occupational & Speech Therapy At [facility] Current Diagnoses Spondylosis without myelopathy or radiculopathy, lumbar region (08/02/22) Abnormal posture (08/02/22) Weakness (08/02/22) Visit Care Team Role Provider Type David Dewitt DO Family Provider Physician Primary Care Provider Specialty: Family Practice Address: [address] [place] [address], [id number] Email: Jose Carlos Khalil Attending Provider Non-Staff Referring Provider Specialty: Neurosurgery Address: [address] [place] [address], [id number] Email: Plan Of Care PT-OP-T Assessment and Plan Start: 08/01/22 08:34 Freq: Status: Active Protocol: Document 08/02/22 08:08 KEISHA (Rec: 08/02/22 09:02 KEISHA [id number]) Physical Therapy Assessment Rehab Potential Rehabilitation Potential Good Evaluation Complexity Number of Personal Factors/Comorbidities 1-2 Number of Body Systems Impaired 3 Clinical Presentation at Evaluation Evolving Impairments Impairments Activity Tolerance,Pain, Posture,Strength Goals 3 Impairment interrupted sleep, hard to walk any distance Short Term Goal (STG) Patient to report ability to sleep for 4 hour stretches at a time without waking due to pain and able to walk for 15 min without inc in pain STG Duration 09/02/22 Care Home Goal (LTG) Patient to report ability sleep for 5-6 hour stretch at a time without waking due to pain and be able to walk for 30 min without inc in pain LTG Duration 10/02/22 2 Impairment activity tolerance Impairment Oswestry score 28% Short Term Goal (STG) dec Oswestry to no greater than 20% as measure of improved activity tolerance STG Duration 09/02/22 Care Home Goal (LTG) Decrease Oswestry to no greater than 15% as measure of improved activity tolerance LTG Duration 10/02/22 1 Impairment pain Impairment LBP and ronal LE pain 6/10, spikes to 8/10 at times Cod Clerk Goal (LTG) Decrase pain to no greater than 4/10 with all usual activities LTG Duration 10/01/22 Assessment Summary Assessment Patient presents to PT with function-limiting LBP and LE pain of chronic nature s/p lumbar laminectomy 01/07/22, also right SI fusion 2009. Reports some improvement in pain immediately after his surgery in 2021 but pain has gradually increased again, interrupts sleep, and doesn't allow him to walk greater than household distances. Patient signs and symptoms consistent with nerve root impingemnetn and he has muscle weakness and dec ROM and well as muscle spasms throughout lumbar spine . Feel he would benefit from PT to decrease his pain and improve his ability to sleep, walk and do all other usual functional activities. We discussed POC and he was in agreement. Physical Therapy Plan Frequency and Duration Frequency of Treatment 2x/Week Duration of treatment (weeks) 8 Plan of Care Start Date 08/02/22 Plan of Care End Date 10/02/22 Therapeutic Interventions Therapeutic Interventions Home Exercise Program,Manual Therapy,Neuromuscular Re- education,Patient/Caregiver Education,Self-Care/Home Management,Soft Tissue Mobilization,Taping, Therapeutic Activities, Therapeutic Exercises Modalities Cold Pack/Ice Massage,Electric Stimulation,Hot Packs, Traction- Mechanical, Ultrasound Next Visit Focus/Plan Next Note Type Treatment Note Next Visit Plan Review HEP, gentle progressio of strengthening, flexibility, and core stab exercises. Modalities and manual therapy PRN. Plan of Care Dates Plan of Care Start Date 08/02/22 Plan of Care End Date 10/02/22 Electronically Signed by: Juli Cotto, PT 08/03/22 [id number] If you are in agreement with this Plan of Care, please return a signed and dated copy. I have reviewed this Plan of Care and certify that the skilled therapy services above are required to meet the patient?s needs. Physician Signature Date Printed Name and Credentials Clinical Instructor Signature Printed Name and Credentials
--- NOTE | 2022-08-04 16:00 | PT.OTN ---
Current Diagnoses Spondylosis without myelopathy or radiculopathy, lumbar region (08/04/22) Abnormal posture (08/04/22) Weakness (08/04/22) Physical Therapy Treatment Note PT-OP-A Visit Information Start: 08/01/22 08:34 Freq: Status: Active Protocol: Document 08/04/22 15:18 SAK (Rec: 08/04/22 16:20 SAK [id number]) Out-Patient Physical Therapy Visit Information Visit Information Visit Type Treatment Note Visit Start Time 15:19 Visit Stop Time 16:15 Total Visit Minutes 56 Visit Number 2 Evaluation Information Evaluation Date 08/02/22 Precautions Precautions PMH: Actinic keratosis Ankle pain (~2001) Carpal tunnel syndrome (~2014) Cervical somatic dysfunction Chronic migraine without aura, with status migrainosus Chronic neck and back pain Chronic right shoulder pain Cranial somatic dysfunction Erectile dysfunction Fibromyalgia (~2014) Fractures (~1983) GERD (gastroesophageal reflux disease) (~2011) Headache (~1995) Hearing loss Hemicrania continua Herpes (~1995) History of urinary incontinence (~2019) Hypothyroidism (acquired) Lower urinary tract symptoms ( LUTS) Lumbar region somatic dysfunction Melanoma (~2009) Migraines (~1995) Pelvic somatic dysfunction Post-void dribbling Removal of staple Rib pain on right side Sacral region somatic dysfunction Scalp laceration Sciatic pain Segmental and somatic dysfunction of abdomen and other regions Segmental and somatic dysfunction of rib cage Shoulder pain (~1999) Skin cancer (~2012) Sleep apnea (~2014) Somatic dysfunction of lower extremity Stiffness of finger joint of right hand Thoracic region somatic dysfunction Tinnitus (~2009) Vasculogenic erectile dysfunction Surgical History (Reviewed @ 21:11 by Skinny Bishop DO) Anesthesia History of carpal tunnel surgery History of fusion of cervical spine (~1995) History of fusion of cervical spine History of heart artery stent (~2012) History of hernia repair History of laminectomy (~2003) History of lumbar fusion (~ 2000) Pyloric stenosis (~1942) S/P TURP (status post transurethral resection of prostate) PT-OP-B Current Condition Start: 08/01/22 08:34 Freq: Status: Active Protocol: Document 08/04/22 15:18 SAK (Rec: 08/04/22 16:20 SAK [id number]) Current Condition History of Current Condition Onset Date 20+ years Current Complaints LBP, difficulty sleeping and walking History of Current Condition Right SI fusion 2000. Most recently hemilaminectomy and foraminiotomy 01/07/23 L4-S1[address] Surgery [address] Dr. Khalil. Immediately after surgery some decrease in pain but pain has been gradually increasing again, taking Methocarbomol and Tramadol with minimal effect. Not doing anything else for pain. Referral messed up took a long time to get in for PT. L34 is fused. Pain is constant, increases with bending forward to right and left (left greater than right), slight with backward. N/T ronal LE's. Walking sometimes drags right heel. Pain worst with laying down, best with standing. Prior Treatments and Tests As above Treatment Goals Patient/Caregiver Goals Improve ability to walk and sleep PT-OP-C Subjective Start: 08/01/22 08:34 Freq: Status: Active Protocol: Document 08/04/22 15:18 [facility] (Rec: 08/04/22 16:20 [facility] [id number]) OP-PT Subjective Patient Comments Patient Comments Did a couple hours of gardening, bending and lifting . I'm not the best patient, starting to hurt worse. Slept well until 4am then had to get up due to pain after trying laying on back, each side, and using pillows as recommended by PT. Pain currently 5-6/10 center of low back. Has a back brace but didn't wear while gardening. PT-OP-G Mobility & Gait Start: 08/01/22 08:34 Freq: Status: Active Protocol: Document 08/02/22 08:08 [facility] (Rec: 08/03/22 14:50 [facility] [id number]) OP Gait Assessment Gait Gait Assistance Required: Independent Assistive Devices Assistive Device None Gait Deviations General Gait Pattern Antalgic,Decreased Stride Length,Festinating,Flexed Trunk Factors Limiting Gait Function Factors Limiting Gait Function Pain PT-OP-H Neuro Start: 08/01/22 08:34 Freq: Status: Active Protocol: Document 08/02/22 08:08 [facility] (Rec: 08/03/22 14:50 [facility] [id number]) Sensation Evaluation Gross Sensation Gross Sensation Left LE Impaired,Right LE Impaired Sensation Description Paresthesia,Pain Deep Tendon Reflex & Clonus Assessment Deep Tendon Reflex Bilateral Patellar Deep Tendon Reflex 1+ Diminished PT-OP-J Posture/Palpation/Skin Start: 08/01/22 08:34 Freq: Status: Active Protocol: Document 08/02/22 08:08 [facility] (Rec: 08/02/22 09:02 [facility] [id number]) Posture Evaluation Position Standing Head/C-Spine Posture Forward Head T-Spine Posture Increased Kyphosis L-Spine Posture Flattened Shoulder Posture (L) Rounded,(R) Rounded Scapula Posture (L) Protracted,(R) Protracted Arm Posture (L) Internally Rotated,(R) Internally Rotated Pelvis Posture Posterior Tilted Hip Posture (L) Externally Rotated,(R) Externally Rotated Palpation Assessment Location lumbar Palpation Findings Soft Tissue Tightness,Muscle Guarding,Tenderness PT-OP-L Special Tests Start: 08/01/22 08:34 Freq: Status: Active Protocol: Document 08/02/22 08:08 [facility] (Rec: 08/03/22 14:50 [facility] [id number]) Special Tests Lumbar Spine Special Tests Manual Traction Test Results positive decrease in pain Darian Test Results positive for muscle tightness Straight Leg Raise Test Results positive for mod muscle tightness PT-OP-M Strength Start: 08/01/22 08:34 Freq: Status: Active Protocol: Document 08/02/22 08:08 [facility] (Rec: 08/03/22 14:50 [facility] [id number]) Trunk Strength Trunk Manual Muscle Testing Flexion 3+ Fair+ Extension 3+ Fair+ Core Stabilization poor Hip Strength Hip Manual Muscle Testing ronal Flexion (L2) 3+ Fair+ Extension (S1) 3 Fair Abduction 3 Fair External Rotation 3+ Fair+ Internal Rotation 3+ Fair+ Knee Strength Knee Manual Muscle Testing ronal Flexion (S2) 4 Good Extension (L3) 4 Good Ankle/Foot Strength Ankle and Foot Manual Muscle Testing Right Dorsiflexion (L4) 4- Good- Plantarflexion (S1) 4- Good- Left Dorsiflexion (L4) 4 Good Plantarflexion (S1) 4 Good PT-OP-Q Treatments Start: 08/01/22 08:34 Freq: Status: Active Protocol: Document 08/04/22 15:18 [facility] (Rec: 08/04/22 16:20 [facility] [id number]) Cardio Equipment Recumbent Stepper (Sci-Fit) Duration (Minutes) 6 Resistance 2 Seat Position 10 Other c/o reported a little more pain on right side toward end Therapeutic Exercises Supine Exercises ball squeeze Reps/Minutes 10x Comments cues for core activation, switched to seated due to reflux HS stretch Reps/Minutes 2x30 Sitting Exercises ball squeeze Reps/Minutes 10x5 HS stretch Reps/Minutes 2x30 piriformis stretch Reps/Minutes 20x30 figure 4 Reps/Minutes 2x30 Self-Care/Home Management Treatment Education Patient Education Body Mechanics,Home Exercise Program,Pain Management, Posture Other Education try a few exercises, relaxation techniques, and/or heat when wakes up in middle of night PT-OP-R Modalities Start: 08/01/22 08:34 Freq: Status: Active Protocol: Document 08/04/22 15:18 [facility] (Rec: 08/04/22 16:20 [facility] [id number]) Electric Stimulation Electric Stimulation ronal l/s Duration (Minutes) 15 Intensity 22 Target/Sweep Sweep Patient Position Sitting Combined With Heat/Cold Hot Pack PT-OP-T Assessment and Plan Start: 08/01/22 08:34 Freq: Status: Active Protocol: Document 08/04/22 15:18 [facility] (Rec: 08/04/22 16:20 [facility] [id number]) Physical Therapy Assessment Goals 3 Impairment interrupted sleep, hard to walk any distance Short Term Goal (STG) Patient to report ability to sleep for 4 hour stretches at a time without waking due to pain and able to walk for 15 min without inc in pain STG Duration 09/02/22 [facility] Goal (LTG) Patient to report ability sleep for 5-6 hour stretch at a time without waking due to pain and be able to walk for 30 min without inc in pain LTG Duration 10/02/22 2 Impairment activity tolerance Impairment Oswestry score 28% Short Term Goal (STG) dec Oswestry to no greater than 20% as measure of improved activity tolerance STG Duration 09/02/22 Single Ending Machine Operator Goal (LTG) Decrease Oswestry to no greater than 15% as measure of improved activity tolerance LTG Duration 10/02/22 1 Impairment pain Impairment LBP and ronal LE pain 6/10, spikes to 8/10 at times [facility] Goal (LTG) Decrase pain to no greater than 4/10 with all usual activities LTG Duration 10/01/22 Assessment Summary Assessment Inc pain d/t 2 hours yardwork including getting on roof. Educated on body mechanics, back protection. Started recumbant elliptical today, followed by seated stretching with good kalpana, likes seated ex better than supine due to reflux. Updated HEP for seated stretching, ball squeeze. Physical Therapy Plan Frequency and Duration Frequency of Treatment 2x/Week Duration of treatment (weeks) 8 Plan of Care Start Date 08/02/22 Plan of Care End Date 10/02/22 Therapeutic Interventions Therapeutic Interventions Home Exercise Program,Manual Therapy,Neuromuscular Re- education,Patient/Caregiver Education,Self-Care/Home Management,Soft Tissue Mobilization,Taping, Therapeutic Activities, Therapeutic Exercises Modalities Cold Pack/Ice Massage,Electric Stimulation,Hot Packs, Traction- Mechanical, Ultrasound Next Visit Focus/Plan Next Note Type Treatment Note Next Visit Plan Evaluate response to last session, review HEP. Consider seated therapy ball ex for core stab.
--- NOTE | 2022-08-09 16:14 | PT.OTN ---
Current Diagnoses Spondylosis without myelopathy or radiculopathy, lumbar region (08/09/22) Abnormal posture (08/09/22) Weakness (08/09/22) Physical Therapy Treatment Note PT-OP-A Visit Information Start: 08/01/22 08:34 Freq: Status: Active Protocol: Document 08/09/22 15:16 SAK (Rec: 08/09/22 16:14 SAK [id number]) Out-Patient Physical Therapy Visit Information Visit Information Visit Type Treatment Note Visit Start Time 15:16 Visit Stop Time 16:15 Total Visit Minutes 59 Visit Number 3 Evaluation Information Evaluation Date 08/02/22 Precautions Precautions PMH: Actinic keratosis Ankle pain (~2001) Carpal tunnel syndrome (~2014) Cervical somatic dysfunction Chronic migraine without aura, with status migrainosus Chronic neck and back pain Chronic right shoulder pain Cranial somatic dysfunction Erectile dysfunction Fibromyalgia (~2014) Fractures (~1983) GERD (gastroesophageal reflux disease) (~2011) Headache (~1995) Hearing loss Hemicrania continua Herpes (~1995) History of urinary incontinence (~2019) Hypothyroidism (acquired) Lower urinary tract symptoms ( LUTS) Lumbar region somatic dysfunction Melanoma (~2009) Migraines (~1995) Pelvic somatic dysfunction Post-void dribbling Removal of staple Rib pain on right side Sacral region somatic dysfunction Scalp laceration Sciatic pain Segmental and somatic dysfunction of abdomen and other regions Segmental and somatic dysfunction of rib cage Shoulder pain (~1999) Skin cancer (~2012) Sleep apnea (~2014) Somatic dysfunction of lower extremity Stiffness of finger joint of right hand Thoracic region somatic dysfunction Tinnitus (~2009) Vasculogenic erectile dysfunction Surgical History (Reviewed @ 21:11 by Skinny Bishop DO) Anesthesia History of carpal tunnel surgery History of fusion of cervical spine (~1995) History of fusion of cervical spine History of heart artery stent (~2012) History of hernia repair History of laminectomy (~2003) History of lumbar fusion (~ 2000) Pyloric stenosis (~1942) S/P TURP (status post transurethral resection of prostate) PT-OP-B Current Condition Start: 08/01/22 08:34 Freq: Status: Active Protocol: Document 08/09/22 15:16 SAK (Rec: 08/09/22 16:14 SAK [id number]) Current Condition History of Current Condition Onset Date 20+ years Current Complaints LBP, difficulty sleeping and walking History of Current Condition Right SI fusion 2000. Most recently hemilaminectomy and foraminiotomy 01/07/23 L4-S1. Surgery by Dr. Khalil. Immediately after surgery some decrease in pain but pain has been gradually increasing again, taking Methocarbomol and Tramadol with minimal effect. Not doing anything else for pain. Referral messed up took a long time to get in for PT. L34 is fused. Pain is constant, increases with bending forward to right and left (left greater than right), slight with backward. N/T ronal LE's. Walking sometimes drags right heel. Pain worst with laying down, best with standing. Prior Treatments and Tests As above PT-OP-C Subjective Start: 08/01/22 08:34 Freq: Status: Active Protocol: Document 08/09/22 15:16 SAK (Rec: 08/09/22 16:14 [facility] [id number]) OP-PT Subjective Patient Comments Patient Comments Overdid again over the weekend trimming trees including on a ladder working overhead. Pain 6-7/10. Did exercises gently this am. Has been using heat. Tryiing to take it easy today. Legs more tingly today. PT-OP-G Mobility & Gait Start: 08/01/22 08:34 Freq: Status: Active Protocol: Document 08/02/22 08:08 [facility] (Rec: 08/03/22 14:50 [facility] [id number]) OP Gait Assessment Gait Gait Assistance Required: Independent Assistive Devices Assistive Device None Gait Deviations General Gait Pattern Antalgic,Decreased Stride Length,Festinating,Flexed Trunk Factors Limiting Gait Function Factors Limiting Gait Function Pain PT-OP-H Neuro Start: 08/01/22 08:34 Freq: Status: Active Protocol: Document 08/02/22 08:08 SAK (Rec: 08/03/22 14:50 [facility] [id number]) Sensation Evaluation Gross Sensation Gross Sensation Left LE Impaired,Right LE Impaired Sensation Description Paresthesia,Pain Deep Tendon Reflex & Clonus Assessment Deep Tendon Reflex Bilateral Patellar Deep Tendon Reflex 1+ Diminished PT-OP-J Posture/Palpation/Skin Start: 08/01/22 08:34 Freq: Status: Active Protocol: Document 08/02/22 08:08 SAK (Rec: 08/02/22 09:02 [facility] [id number]) Posture Evaluation Position Standing Head/C-Spine Posture Forward Head T-Spine Posture Increased Kyphosis L-Spine Posture Flattened Shoulder Posture (L) Rounded,(R) Rounded Scapula Posture (L) Protracted,(R) Protracted Arm Posture (L) Internally Rotated,(R) Internally Rotated Pelvis Posture Posterior Tilted Hip Posture (L) Externally Rotated,(R) Externally Rotated Palpation Assessment Location lumbar Palpation Findings Soft Tissue Tightness,Muscle Guarding,Tenderness PT-OP-L Special Tests Start: 08/01/22 08:34 Freq: Status: Active Protocol: Document 08/02/22 08:08 [facility] (Rec: 08/03/22 14:50 [facility] [id number]) Special Tests Lumbar Spine Special Tests Manual Traction Test Results positive decrease in pain Darian Test Results positive for muscle tightness Straight Leg Raise Test Results positive for mod muscle tightness PT-OP-M Strength Start: 08/01/22 08:34 Freq: Status: Active Protocol: Document 08/02/22 08:08 [facility] (Rec: 08/03/22 14:50 [facility] [id number]) Trunk Strength Trunk Manual Muscle Testing Flexion 3+ Fair+ Extension 3+ Fair+ Core Stabilization poor Hip Strength Hip Manual Muscle Testing ronal Flexion (L2) 3+ Fair+ Extension (S1) 3 Fair Abduction 3 Fair External Rotation 3+ Fair+ Internal Rotation 3+ Fair+ Knee Strength Knee Manual Muscle Testing ronal Flexion (S2) 4 Good Extension (L3) 4 Good Ankle/Foot Strength Ankle and Foot Manual Muscle Testing Right Dorsiflexion (L4) 4- Good- Plantarflexion (S1) 4- Good- Left Dorsiflexion (L4) 4 Good Plantarflexion (S1) 4 Good PT-OP-Q Treatments Start: 08/01/22 08:34 Freq: Status: Active Protocol: Document 08/09/22 15:16 [facility] (Rec: 08/09/22 16:14 [facility] [id number]) Cardio Equipment Recumbent Stepper (Sci-Fit) Duration (Minutes) 8 Resistance 2 Seat Position 10 Therapeutic Exercises Supine Exercises piriformis stretch Reps/Minutes 2x30 90/90 swapna push Reps/Minutes 10X Comments cues for TrA gluteal set Reps/Minutes 10x5 Comments cues for TrA Transverse abdominis Reps/Minutes 10x5 Comments cues for TrA ball squeeze Reps/Minutes 10x Comments cues for core activation, switched to seated due to reflux HS stretch Reps/Minutes 2x30 Self-Care/Home Management Treatment Education Patient Education Body Mechanics,Home Exercise Program,Pain Management, Posture Other Education exercises can be done supine or sitting. body mechanics for lifting, yardwork PT-OP-R Modalities Start: 08/01/22 08:34 Freq: Status: Active Protocol: Document 08/09/22 15:16 [facility] (Rec: 08/09/22 16:14 [facility] [id number]) Electric Stimulation Electric Stimulation ronal l/s Duration (Minutes) 15 Intensity 24 Target/Sweep Sweep Patient Position Sitting Combined With Heat/Cold Hot Pack Hot Pack/Cold Pack Treatment Cold Pack Comments during supine ex PT-OP-T Assessment and Plan Start: 08/01/22 08:34 Freq: Status: Active Protocol: Document 08/09/22 15:16 [facility] (Rec: 08/09/22 16:14 [facility] [id number]) Physical Therapy Assessment Impairments Impairments Activity Tolerance,Pain, Posture,Strength Goals 3 Impairment interrupted sleep, hard to walk any distance Short Term Goal (STG) Patient to report ability to sleep for 4 hour stretches at a time without waking due to pain and able to walk for 15 min without inc in pain STG Duration 09/02/22 Longterm Goal (LTG) Patient to report ability sleep for 5-6 hour stretch at a time without waking due to pain and be able to walk for 30 min without inc in pain LTG Duration 10/02/22 2 Impairment activity tolerance Impairment Oswestry score 28% Short Term Goal (STG) dec Oswestry to no greater than 20% as measure of improved activity tolerance STG Duration 09/02/22 Wheel Presser Goal (LTG) Decrease Oswestry to no greater than 15% as measure of improved activity tolerance LTG Duration 10/02/22 1 Impairment pain Impairment LBP and ronal LE pain 6/10, spikes to 8/10 at times Wheel Presser Goal (LTG) Decrase pain to no greater than 4/10 with all usual activities LTG Duration 10/01/22 Assessment Summary Assessment Inc pain again due to excess yardwork. Did supine stab ex with HOB elevated 20 deg, ice pack to lubosacral spine during ex, updated HO issued, IFES with moist heat after ex with good tolerance. Patient demonstrated improved understanding of core activation by end of session Physical Therapy Plan Frequency and Duration Frequency of Treatment 2x/Week Duration of treatment (weeks) 8 Plan of Care Start Date 08/02/22 Plan of Care End Date 10/02/22 Therapeutic Interventions Therapeutic Interventions Home Exercise Program,Manual Therapy,Neuromuscular Re- education,Patient/Caregiver Education,Self-Care/Home Management,Soft Tissue Mobilization,Taping, Therapeutic Activities, Therapeutic Exercises Modalities Cold Pack/Ice Massage,Electric Stimulation,Hot Packs, Traction- Mechanical, Ultrasound Next Visit Focus/Plan Next Note Type Treatment Note Next Visit Plan Evaluate response to last session, review HEP. Consider seated therapy ball ex for core stab.
--- NOTE | 2022-08-13 13:45 | PT.OTN ---
Current Diagnoses Spondylosis without myelopathy or radiculopathy, lumbar region (08/13/22) Abnormal posture (08/13/22) Weakness (08/13/22) Physical Therapy Treatment Note PT-OP-A Visit Information Start: 08/01/22 08:34 Freq: Status: Active Protocol: Document 08/13/22 13:01 SP (Rec: 08/13/22 13:49 SP [id number]) Out-Patient Physical Therapy Visit Information Visit Information Visit Type Treatment Note Visit Start Time 13:01 Visit Stop Time 13:45 Total Visit Minutes 44 Visit Number 4 Number of LITERARY AGENT Visits 1 Evaluation Information Evaluation Date 08/02/22 Precautions Precautions PMH: Actinic keratosis Ankle pain (~2001) Carpal tunnel syndrome (~2014) Cervical somatic dysfunction Chronic migraine without aura, with status migrainosus Chronic neck and back pain Chronic right shoulder pain Cranial somatic dysfunction Erectile dysfunction Fibromyalgia (~2014) Fractures (~1983) GERD (gastroesophageal reflux disease) (~2011) Headache (~1995) Hearing loss Hemicrania continua Herpes (~1995) History of urinary incontinence (~2019) Hypothyroidism (acquired) Lower urinary tract symptoms ( LUTS) Lumbar region somatic dysfunction Melanoma (~2009) Migraines (~1995) Pelvic somatic dysfunction Post-void dribbling Removal of staple Rib pain on right side Sacral region somatic dysfunction Scalp laceration Sciatic pain Segmental and somatic dysfunction of abdomen and other regions Segmental and somatic dysfunction of rib cage Shoulder pain (~1999) Skin cancer (~2012) Sleep apnea (~2014) Somatic dysfunction of lower extremity Stiffness of finger joint of right hand Thoracic region somatic dysfunction Tinnitus (~2009) Vasculogenic erectile dysfunction Surgical History (Reviewed @ 21:11 by Skinny Bishop DO) Anesthesia History of carpal tunnel surgery History of fusion of cervical spine (~1995) History of fusion of cervical spine History of heart artery stent (~2012) History of hernia repair History of laminectomy (~2003) History of lumbar fusion (~ 2000) Pyloric stenosis (~194) S/P TURP (status post transurethral resection of prostate) PT-OP-B Current Condition Start: 08/01/22 08:34 Freq: Status: Active Protocol: Document 08/09/22 15:16 SAK (Rec: 08/09/22 16:14 SAK [id number]) Current Condition History of Current Condition Onset Date 20+ years Current Complaints LBP, difficulty sleeping and walking History of Current Condition Right SI fusion 2000. Most recently hemilaminectomy and foraminiotomy 01/07/23 L4-S1. Surgery by Dr. Khalil. Immediately after surgery some decrease in pain but pain has been gradually increasing again, taking Methocarbomol and Tramadol with minimal effect. Not doing anything else for pain. Referral messed up took a long time to get in for PT. L34 is fused. Pain is constant, increases with bending forward to right and left (left greater than right), slight with backward. N/T ronal LE's. Walking sometimes drags right heel. Pain worst with laying down, best with standing. Prior Treatments and Tests As above PT-OP-C Subjective Start: 08/01/22 08:34 Freq: Status: Active Protocol: Document 08/13/22 13:01 SP (Rec: 08/13/22 13:49 SP [id number]) OP-PT Subjective Patient Comments Patient Comments Pt reports was little sore after last tx, good soreness. Stated sleeping 3-4 hrs at time before wakes and needs stretch, once during night. HEP doing well with no problems. 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 PT-OP-G Mobility & Gait Start: 08/01/22 08:34 Freq: Status: Active Protocol: Document 08/02/22 08:08 SAK (Rec: 08/03/22 14:50 [facility] [id number]) OP Gait Assessment Gait Gait Assistance Required: Independent Assistive Devices Assistive Device None Gait Deviations General Gait Pattern Antalgic,Decreased Stride Length,Festinating,Flexed Trunk Factors Limiting Gait Function Factors Limiting Gait Function Pain PT-OP-H Neuro Start: 08/01/22 08:34 Freq: Status: Active Protocol: Document 08/02/22 08:08 SAK (Rec: 08/03/22 14:50 [facility] [id number]) Sensation Evaluation Gross Sensation Gross Sensation Left LE Impaired,Right LE Impaired Sensation Description Paresthesia,Pain Deep Tendon Reflex & Clonus Assessment Deep Tendon Reflex Bilateral Patellar Deep Tendon Reflex 1+ Diminished PT-OP-J Posture/Palpation/Skin Start: 08/01/22 08:34 Freq: Status: Active Protocol: Document 08/02/22 08:08 SAK (Rec: 08/02/22 09:02 SAK [id number]) Posture Evaluation Position Standing Head/C-Spine Posture Forward Head T-Spine Posture Increased Kyphosis L-Spine Posture Flattened Shoulder Posture (L) Rounded,(R) Rounded Scapula Posture (L) Protracted,(R) Protracted Arm Posture (L) Internally Rotated,(R) Internally Rotated Pelvis Posture Posterior Tilted Hip Posture (L) Externally Rotated,(R) Externally Rotated Palpation Assessment Location lumbar Palpation Findings Soft Tissue Tightness,Muscle Guarding,Tenderness PT-OP-L Special Tests Start: 08/01/22 08:34 Freq: Status: Active Protocol: Document 08/02/22 08:08 [facility] (Rec: 08/03/22 14:50 [facility] [id number]) Special Tests Lumbar Spine Special Tests Manual Traction Test Results positive decrease in pain Darian Test Results positive for muscle tightness Straight Leg Raise Test Results positive for mod muscle tightness PT-OP-M Strength Start: 08/01/22 08:34 Freq: Status: Active Protocol: Document 08/02/22 08:08 [facility] (Rec: 08/03/22 14:50 [facility] [id number]) Trunk Strength Trunk Manual Muscle Testing Flexion 3+ Fair+ Extension 3+ Fair+ Core Stabilization poor Hip Strength Hip Manual Muscle Testing ronal Flexion (L2) 3+ Fair+ Extension (S1) 3 Fair Abduction 3 Fair External Rotation 3+ Fair+ Internal Rotation 3+ Fair+ Knee Strength Knee Manual Muscle Testing ronal Flexion (S2) 4 Good Extension (L3) 4 Good Ankle/Foot Strength Ankle and Foot Manual Muscle Testing Right Dorsiflexion (L4) 4- Good- Plantarflexion (S1) 4- Good- Left Dorsiflexion (L4) 4 Good Plantarflexion (S1) 4 Good PT-OP-Q Treatments Start: 08/01/22 08:34 Freq: Status: Active Protocol: Document 08/13/22 13:01 SP (Rec: 08/13/22 13:49 SP [id number]) Cardio Equipment Recumbent Stepper (Sci-Fit) Duration (Minutes) 6 Resistance 2>3 Seat Position 10 - 1.12 miles Other 70 RPMs, stating less R hip tightness after 3 min Gym Equipment Therapeutic Ball seated Exercise Details AP/PA/ lat pelvic tilts, march , LAQ, pull down Ball Size/Color 65cm Body Position Sitting Reps/Duration x10 reps each Comments cues for tall COG over pelvis Therapeutic Exercises Supine Exercises piriformis stretch Supine Exercise Name HEP reviewed Side right Equipment Used BUE support knee opp shld directioning Reps/Minutes 2x30 Comments cued ease into stretch 90/90 swapna push Equipment Used UE press into thigh Reps/Minutes 10X Comments good TA felt curt with fac more mindfulness HS stretch Supine Exercise Name HEP reviewed Side left Reps/Minutes 2x30 Sitting Exercises STS Sitting Exercise Name added to HEP- declined HO Reps/Minutes 2x8 reps Comments cued scoot front seat, hip hinge, slow full descent, not use self STMs Sitting Exercise Name glut, piriformis Side right Equipment Used rolling pin HS, racquetball wall Comments good feedback response- less muscle tightness PT-OP-R Modalities Start: 08/01/22 08:34 Freq: Status: Active Protocol: Document 08/09/22 15:16 SAK (Rec: 08/09/22 16:14 SAK [id number]) Electric Stimulation Electric Stimulation ronal l/s Duration (Minutes) 15 Intensity 24 Target/Sweep Sweep Patient Position Sitting Combined With Heat/Cold Hot Pack Hot Pack/Cold Pack Treatment Cold Pack Comments during supine ex PT-OP-T Assessment and Plan Start: 08/01/22 08:34 Freq: Status: Active Protocol: Document 08/13/22 13:01 SP (Rec: 08/13/22 13:49 SP [id number]) Physical Therapy Assessment Goals 3 Impairment interrupted sleep, hard to walk any distance Short Term Goal (STG) Patient to report ability to sleep for 4 hour stretches at a time without waking due to pain and able to walk for 15 min without inc in pain 08/13/22: progressing : uninterupted sleep about 3 hrs to stretch little then 4 hrs then have to get up. STG Duration 09/02/22 progressing 08/13/22 Manager State Goal (LTG) Patient to report ability sleep for 5-6 hour stretch at a time without waking due to pain and be able to walk for 30 min without inc in pain LTG Duration 10/02/22 2 Impairment activity tolerance Impairment Oswestry score 28% Short Term Goal (STG) dec Oswestry to no greater than 20% as measure of improved activity tolerance STG Duration 09/02/22 [facility] Goal (LTG) Decrease Oswestry to no greater than 15% as measure of improved activity tolerance LTG Duration 10/02/22 1 Impairment pain Impairment LBP and ronal LE pain 6/10, spikes to 8/10 at times Manager State Goal (LTG) Decrase pain to no greater than 4/10 with all usual activities LTG Duration 10/01/22 Assessment Summary Assessment Pt good feedback response to seated on tball ther ex today, improved trunk alignment and TA facilitation, couple sways to R but self recovery contact table needed. Pt good response to ball wall over glut/piriformis this tx for home carryover with R gluteal pain still experiencing. Physical Therapy Plan Frequency and Duration Frequency of Treatment 2x/Week Duration of treatment (weeks) 8 Plan of Care Start Date 08/02/22 Plan of Care End Date 10/02/22 Therapeutic Interventions Therapeutic Interventions Home Exercise Program,Manual Therapy,Neuromuscular Re- education,Patient/Caregiver Education,Self-Care/Home Management,Soft Tissue Mobilization,Taping, Therapeutic Activities, Therapeutic Exercises Modalities Cold Pack/Ice Massage,Electric Stimulation,Hot Packs, Traction- Mechanical, Ultrasound Next Visit Focus/Plan Next Note Type Treatment Note Next Visit Plan REcheck response to self ball wall massage R gluteal region, seated ball ther ex. POC: review HEP.
--- NOTE | 2022-08-17 12:19 | PT.OTN ---
Current Diagnoses Spondylosis without myelopathy or radiculopathy, lumbar region (08/17/22) Abnormal posture (08/17/22) Weakness (08/17/22) Physical Therapy Treatment Note PT-OP-A Visit Information Start: 08/01/22 08:34 Freq: Status: Active Protocol: Document 08/17/22 10:37 SAK (Rec: 08/17/22 11:15 SAK [id number]) Out-Patient Physical Therapy Visit Information Visit Information Visit Type Initial Evaluation Visit Start Time 10:32 Visit Stop Time 11:16 Total Visit Minutes 44 Visit Number 5 Number of INDUSTRIAL ROBOTICS MECHANIC Visits 0 Evaluation Information Evaluation Date 08/02/22 Precautions Precautions PMH: Actinic keratosis Ankle pain (~2001) Carpal tunnel syndrome (~2014) Cervical somatic dysfunction Chronic migraine without aura, with status migrainosus Chronic neck and back pain Chronic right shoulder pain Cranial somatic dysfunction Erectile dysfunction Fibromyalgia (~2014) Fractures (~1983) GERD (gastroesophageal reflux disease) (~2011) Headache (~1995) Hearing loss Hemicrania continua Herpes (~1995) History of urinary incontinence (~2019) Hypothyroidism (acquired) Lower urinary tract symptoms ( LUTS) Lumbar region somatic dysfunction Melanoma (~2009) Migraines (~1995) Pelvic somatic dysfunction Post-void dribbling Removal of staple Rib pain on right side Sacral region somatic dysfunction Scalp laceration Sciatic pain Segmental and somatic dysfunction of abdomen and other regions Segmental and somatic dysfunction of rib cage Shoulder pain (~1999) Skin cancer (~2012) Sleep apnea (~2014) Somatic dysfunction of lower extremity Stiffness of finger joint of right hand Thoracic region somatic dysfunction Tinnitus (~2009) Vasculogenic erectile dysfunction Surgical History (Reviewed @ 21:11 by Skinny Bishop DO) Anesthesia History of carpal tunnel surgery History of fusion of cervical spine (~1995) History of fusion of cervical spine History of heart artery stent (~2012) History of hernia repair History of laminectomy (~2003) History of lumbar fusion (~ 2000) Pyloric stenosis (~194) S/P TURP (status post transurethral resection of prostate) PT-OP-B Current Condition Start: 08/01/22 08:34 Freq: Status: Active Protocol: Document 08/17/22 10:37 SAK (Rec: 08/17/22 11:15 SAK [id number]) Current Condition History of Current Condition Onset Date 20+ years Current Complaints LBP, difficulty sleeping and walking History of Current Condition Right SI fusion 2000. Most recently hemilaminectomy and foraminiotomy 01/07/23 L4-S1. Surgery by Dr. Khalil. Immediately after surgery some decrease in pain but pain has been gradually increasing again, taking Methocarbomol and Tramadol with minimal effect. Not doing anything else for pain. Referral messed up took a long time to get in for PT. L34 is fused. Pain is constant, increases with bending forward to right and left (left greater than right), slight with backward. N/T ronal LE's. Walking sometimes drags right heel. Pain worst with laying down, best with standing. Prior Treatments and Tests As above PT-OP-C Subjective Start: 08/01/22 08:34 Freq: Status: Active Protocol: Document 08/17/22 10:37 [facility] (Rec: 08/17/22 11:15 [facility] [id number]) OP-PT Subjective Patient Comments Patient Comments Overdid in yard then had miserable night, tried stretching and heat, but not helpful. C/o neck pain as well. PT has given some good insights into things he can do . PT-OP-G Mobility & Gait Start: 08/01/22 08:34 Freq: Status: Active Protocol: Document 08/02/22 08:08 [facility] (Rec: 08/03/22 14:50 [facility] [id number]) OP Gait Assessment Gait Gait Assistance Required: Independent Assistive Devices Assistive Device None Gait Deviations General Gait Pattern Antalgic,Decreased Stride Length,Festinating,Flexed Trunk Factors Limiting Gait Function Factors Limiting Gait Function Pain PT-OP-H Neuro Start: 08/01/22 08:34 Freq: Status: Active Protocol: Document 08/02/22 08:08 [facility] (Rec: 08/03/22 14:50 [facility] [id number]) Sensation Evaluation Gross Sensation Gross Sensation Left LE Impaired,Right LE Impaired Sensation Description Paresthesia,Pain Deep Tendon Reflex & Clonus Assessment Deep Tendon Reflex Bilateral Patellar Deep Tendon Reflex 1+ Diminished PT-OP-J Posture/Palpation/Skin Start: 08/01/22 08:34 Freq: Status: Active Protocol: Document 08/02/22 08:08 SAK (Rec: 08/02/22 09:02 [facility] [id number]) Posture Evaluation Position Standing Head/C-Spine Posture Forward Head T-Spine Posture Increased Kyphosis L-Spine Posture Flattened Shoulder Posture (L) Rounded,(R) Rounded Scapula Posture (L) Protracted,(R) Protracted Arm Posture (L) Internally Rotated,(R) Internally Rotated Pelvis Posture Posterior Tilted Hip Posture (L) Externally Rotated,(R) Externally Rotated Palpation Assessment Location lumbar Palpation Findings Soft Tissue Tightness,Muscle Guarding,Tenderness PT-OP-L Special Tests Start: 08/01/22 08:34 Freq: Status: Active Protocol: Document 08/02/22 08:08 [facility] (Rec: 08/03/22 14:50 [facility] [id number]) Special Tests Lumbar Spine Special Tests Manual Traction Test Results positive decrease in pain Darian Test Results positive for muscle tightness Straight Leg Raise Test Results positive for mod muscle tightness PT-OP-M Strength Start: 08/01/22 08:34 Freq: Status: Active Protocol: Document 08/02/22 08:08 [facility] (Rec: 08/03/22 14:50 [facility] [id number]) Trunk Strength Trunk Manual Muscle Testing Flexion 3+ Fair+ Extension 3+ Fair+ Core Stabilization poor Hip Strength Hip Manual Muscle Testing ronal Flexion (L2) 3+ Fair+ Extension (S1) 3 Fair Abduction 3 Fair External Rotation 3+ Fair+ Internal Rotation 3+ Fair+ Knee Strength Knee Manual Muscle Testing ronal Flexion (S2) 4 Good Extension (L3) 4 Good Ankle/Foot Strength Ankle and Foot Manual Muscle Testing Right Dorsiflexion (L4) 4- Good- Plantarflexion (S1) 4- Good- Left Dorsiflexion (L4) 4 Good Plantarflexion (S1) 4 Good PT-OP-Q Treatments Start: 08/01/22 08:34 Freq: Status: Active Protocol: Document 08/17/22 10:37 [facility] (Rec: 08/17/22 11:15 [facility] [id number]) Cardio Equipment Recumbent Stepper (Sci-Fit) Duration (Minutes) 9 Resistance 2>3 Seat Position 10 - 1.3 miles Other 75 RPMs, stating less R hip tightness after 3 min Gym Equipment Therapeutic Ball seated Exercise Details AP/PA/ lat pelvic tilts, ball squeeze, march, LAQ, pull down Ball Size/Color 65cm Body Position Sitting Reps/Duration x10 reps each Comments cues for tall COG over pelvis Therapeutic Exercises Supine Exercises piriformis stretch Supine Exercise Name HEP reviewed Side right Equipment Used BUE support knee opp shld directioning Reps/Minutes 2x30 Comments cued ease into stretch 90/90 swapna push Supine Exercise Name sitting on therapy ball today Equipment Used UE press into thigh Reps/Minutes 10X Comments good TA felt curt with fac more mindfulness Sitting Exercises STS Reps/Minutes 10x Comments cues for hip hinge, long spine self STMs Sitting Exercise Name HEP Standing Exercises resisted walking Standing Exercise Name fwd/back, side Resistance red band Reps/Minutes 10 ft x 2 ea Self-Care/Home Management Treatment Education Patient Education Body Mechanics,Home Exercise Program,Pain Management, Posture Other Education core activation for all UE exercises with weights patient does at home; pt demo HEP PT-OP-R Modalities Start: 08/01/22 08:34 Freq: Status: Active Protocol: Document 08/09/22 15:16 SAK (Rec: 08/09/22 16:14 [facility] [id number]) Electric Stimulation Electric Stimulation ronal l/s Duration (Minutes) 15 Intensity 24 Target/Sweep Sweep Patient Position Sitting Combined With Heat/Cold Hot Pack Hot Pack/Cold Pack Treatment Cold Pack Comments during supine ex PT-OP-T Assessment and Plan Start: 08/01/22 08:34 Freq: Status: Active Protocol: Document 08/17/22 10:37 SAK (Rec: 08/17/22 11:15 [facility] [id number]) Physical Therapy Assessment Goals 3 Impairment interrupted sleep, hard to walk any distance Short Term Goal (STG) Patient to report ability to sleep for 4 hour stretches at a time without waking due to pain and able to walk for 15 min without inc in pain 08/13/22: progressing : uninterupted sleep about 3 hrs to stretch little then 4 hrs then have to get up. STG Duration 09/02/22 progressing 08/13/22 Digital Press Operator Goal (LTG) Patient to report ability sleep for 5-6 hour stretch at a time without waking due to pain and be able to walk for 30 min without inc in pain LTG Duration 10/02/22 2 Impairment activity tolerance Impairment Oswestry score 28% Short Term Goal (STG) dec Oswestry to no greater than 20% as measure of improved activity tolerance STG Duration 09/02/22 [facility] Goal (LTG) Decrease Oswestry to no greater than 15% as measure of improved activity tolerance LTG Duration 10/02/22 1 Impairment pain Impairment LBP and ronal LE pain 6/10, spikes to 8/10 at times Digital Press Operator Goal (LTG) Decrase pain to no greater than 4/10 with all usual activities LTG Duration 10/01/22 Assessment Summary Assessment Patient noting improved awareness of core musculature. Continues to overdo at home resulting in inc pain. Stressed importance of pacing activity, spinal protection and stabilization principles; pt verbalizes understanding. Physical Therapy Plan Frequency and Duration Frequency of Treatment 2x/Week Duration of treatment (weeks) 8 Plan of Care Start Date 08/02/22 Plan of Care End Date 10/02/22 Therapeutic Interventions Therapeutic Interventions Home Exercise Program,Manual Therapy,Neuromuscular Re- education,Patient/Caregiver Education,Self-Care/Home Management,Soft Tissue Mobilization,Taping, Therapeutic Activities, Therapeutic Exercises Modalities Cold Pack/Ice Massage,Electric Stimulation,Hot Packs, Traction- Mechanical, Ultrasound Next Visit Focus/Plan Next Note Type Treatment Note Next Visit Plan Continue core strengthening, functional closed chain strengthening and stabilization.
--- NOTE | 2022-08-20 13:00 | PT.OTN ---
Current Diagnoses Spondylosis without myelopathy or radiculopathy, lumbar region (08/20/22) Abnormal posture (08/20/22) Weakness (08/20/22) Physical Therapy Treatment Note PT-OP-A Visit Information Start: 08/01/22 08:34 Freq: Status: Active Protocol: Document 08/20/22 12:14 SP (Rec: 08/20/22 13:11 SP [id number]) Out-Patient Physical Therapy Visit Information Visit Information Visit Type Treatment Note Visit Start Time 12:15 Visit Stop Time 13:00 Total Visit Minutes 45 Visit Number 6 Number of NETWORK OPERATIONS ANALYST Visits 1 Evaluation Information Evaluation Date 08/02/22 Precautions Precautions PMH: Actinic keratosis Ankle pain (~2001) Carpal tunnel syndrome (~2014) Cervical somatic dysfunction Chronic migraine without aura, with status migrainosus Chronic neck and back pain Chronic right shoulder pain Cranial somatic dysfunction Erectile dysfunction Fibromyalgia (~2014) Fractures (~1983) GERD (gastroesophageal reflux disease) (~2011) Headache (~1995) Hearing loss Hemicrania continua Herpes (~1995) History of urinary incontinence (~2019) Hypothyroidism (acquired) Lower urinary tract symptoms ( LUTS) Lumbar region somatic dysfunction Melanoma (~2009) Migraines (~1995) Pelvic somatic dysfunction Post-void dribbling Removal of staple Rib pain on right side Sacral region somatic dysfunction Scalp laceration Sciatic pain Segmental and somatic dysfunction of abdomen and other regions Segmental and somatic dysfunction of rib cage Shoulder pain (~1999) Skin cancer (~2012) Sleep apnea (~2014) Somatic dysfunction of lower extremity Stiffness of finger joint of right hand Thoracic region somatic dysfunction Tinnitus (~2009) Vasculogenic erectile dysfunction Surgical History (Reviewed @ 21:11 by Skinny Bishop DO) Anesthesia History of carpal tunnel surgery History of fusion of cervical spine (~1995) History of fusion of cervical spine History of heart artery stent (~2012) History of hernia repair History of laminectomy (~2003) History of lumbar fusion (~ 2000) Pyloric stenosis (~194) S/P TURP (status post transurethral resection of prostate) PT-OP-B Current Condition Start: 08/01/22 08:34 Freq: Status: Active Protocol: Document 08/17/22 10:37 SAK (Rec: 08/17/22 11:15 SAK [id number]) Current Condition History of Current Condition Onset Date 20+ years Current Complaints LBP, difficulty sleeping and walking History of Current Condition Right SI fusion 2000. Most recently hemilaminectomy and foraminiotomy 01/07/23 L4-S1[address] Surgery by Dr. Khalil. Immediately after surgery some decrease in pain but pain has been gradually increasing again, taking Methocarbomol and Tramadol with minimal effect. Not doing anything else for pain. Referral messed up took a long time to get in for PT. L34 is fused. Pain is constant, increases with bending forward to right and left (left greater than right), slight with backward. N/T ronal LE's. Walking sometimes drags right heel. Pain worst with laying down, best with standing. Prior Treatments and Tests As above PT-OP-C Subjective Start: 08/01/22 08:34 Freq: Status: Active Protocol: Document 08/20/22 12:14 SP (Rec: 08/20/22 13:11 SP [id number]) OP-PT Subjective Patient Comments Patient Comments Pt reported back of neck sore, thinks little stress from incline walk from [facility] yesterday and affected his sleeping even with med assist. Stated the exercises given last tx have been very helpful. Pt forward posture upon arrival. PT-OP-G Mobility & Gait Start: 08/01/22 08:34 Freq: Status: Active Protocol: Document 08/02/22 08:08 [facility] (Rec: 08/03/22 14:50 [facility] [id number]) OP Gait Assessment Gait Gait Assistance Required: Independent Assistive Devices Assistive Device None Gait Deviations General Gait Pattern Antalgic,Decreased Stride Length,Festinating,Flexed Trunk Factors Limiting Gait Function Factors Limiting Gait Function Pain PT-OP-H Neuro Start: 08/01/22 08:34 Freq: Status: Active Protocol: Document 08/02/22 08:08 SAK (Rec: 08/03/22 14:50 [facility] [id number]) Sensation Evaluation Gross Sensation Gross Sensation Left LE Impaired,Right LE Impaired Sensation Description Paresthesia,Pain Deep Tendon Reflex & Clonus Assessment Deep Tendon Reflex Bilateral Patellar Deep Tendon Reflex 1+ Diminished PT-OP-J Posture/Palpation/Skin Start: 08/01/22 08:34 Freq: Status: Active Protocol: Document 08/02/22 08:08 SAK (Rec: 08/02/22 09:02 SAK [id number]) Posture Evaluation Position Standing Head/C-Spine Posture Forward Head T-Spine Posture Increased Kyphosis L-Spine Posture Flattened Shoulder Posture (L) Rounded,(R) Rounded Scapula Posture (L) Protracted,(R) Protracted Arm Posture (L) Internally Rotated,(R) Internally Rotated Pelvis Posture Posterior Tilted Hip Posture (L) Externally Rotated,(R) Externally Rotated Palpation Assessment Location lumbar Palpation Findings Soft Tissue Tightness,Muscle Guarding,Tenderness PT-OP-L Special Tests Start: 08/01/22 08:34 Freq: Status: Active Protocol: Document 08/02/22 08:08 [facility] (Rec: 08/03/22 14:50 [facility] [id number]) Special Tests Lumbar Spine Special Tests Manual Traction Test Results positive decrease in pain Darian Test Results positive for muscle tightness Straight Leg Raise Test Results positive for mod muscle tightness PT-OP-M Strength Start: 08/01/22 08:34 Freq: Status: Active Protocol: Document 08/02/22 08:08 [facility] (Rec: 08/03/22 14:50 [facility] [id number]) Trunk Strength Trunk Manual Muscle Testing Flexion 3+ Fair+ Extension 3+ Fair+ Core Stabilization poor Hip Strength Hip Manual Muscle Testing ronal Flexion (L2) 3+ Fair+ Extension (S1) 3 Fair Abduction 3 Fair External Rotation 3+ Fair+ Internal Rotation 3+ Fair+ Knee Strength Knee Manual Muscle Testing ronal Flexion (S2) 4 Good Extension (L3) 4 Good Ankle/Foot Strength Ankle and Foot Manual Muscle Testing Right Dorsiflexion (L4) 4- Good- Plantarflexion (S1) 4- Good- Left Dorsiflexion (L4) 4 Good Plantarflexion (S1) 4 Good PT-OP-Q Treatments Start: 08/01/22 08:34 Freq: Status: Active Protocol: Document 08/20/22 12:14 SP (Rec: 08/20/22 13:11 SP [id number]) Cardio Equipment Recumbent Stepper (Sci-Fit) Duration (Minutes) 10 Resistance 3 Seat Position 11>10- 1.66 miles Other 75 RPMs, R hip fine, cued no stress neck recruitment Gym Equipment Therapeutic Ball seated Exercise Details AP/PA/ lat pelvic tilts, ball squeeze, march, LAQ, pull down Ball Size/Color 65cm Body Position Sitting Reps/Duration x10 reps each Comments cues for tall COG over pelvis Therapeutic Exercises Supine Exercises LTR, KFO Supine Exercise Name self HEP Side bilateral Reps/Minutes x5 reps each Comments good form response SKTC Supine Exercise Name self HEP w/ DF/ PF Side bilateral Reps/Minutes 2x5 AP reps Comments good response Sidelying Exercises open book Sidelying Exercise Name initiated in PT Side bilateral Equipment Used hand on head vs long arm Reps/Minutes 5 reps Comments cued head turn with arm scapular glide- painfree range Standing Exercises wall posture Standing Exercise Name added to HEP Equipment Used discussed ease not forceful Reps/Minutes 5 SH x5- Comments chin lucy neutral, LS toward wall, relax shld Manual Therapy Treatment Soft Tissue Mobilization TS, LS Body Location B ES, paraspinal, QL Mobilization Type Myofascial Release,Strumming Intensity/Depth Moderate Body Position Sidelying Comments manual gentle during open book and ed self ball wall CS Body Location BUT, LS, ES Mobilization Type Myofascial Release Intensity/Depth Moderate Body Position Hooklying Comments good feedback manual and ed use therancane MWM head nods turns and postural alignment chest lift walking for support . PT-OP-R Modalities Start: 08/01/22 08:34 Freq: Status: Active Protocol: Document 08/09/22 15:16 SAK (Rec: 08/09/22 16:14 SAK [id number]) Electric Stimulation Electric Stimulation ronal l/s Duration (Minutes) 15 Intensity 24 Target/Sweep Sweep Patient Position Sitting Combined With Heat/Cold Hot Pack Hot Pack/Cold Pack Treatment Cold Pack Comments during supine ex PT-OP-T Assessment and Plan Start: 08/01/22 08:34 Freq: Status: Active Protocol: Document 08/20/22 12:14 SP (Rec: 08/20/22 13:11 SP [id number]) Physical Therapy Assessment Goals 3 Impairment interrupted sleep, hard to walk any distance Short Term Goal (STG) Patient to report ability to sleep for 4 hour stretches at a time without waking due to pain and able to walk for 15 min without inc in pain 08/13/22: progressing : uninterupted sleep about 3 hrs to stretch little then 4 hrs then have to get up. STG Duration 09/02/22 progressing 08/13/22 Halfway Goal (LTG) Patient to report ability sleep for 5-6 hour stretch at a time without waking due to pain and be able to walk for 30 min without inc in pain LTG Duration 10/02/22 2 Impairment activity tolerance Impairment Oswestry score 28% Short Term Goal (STG) dec Oswestry to no greater than 20% as measure of improved activity tolerance STG Duration 09/02/22 Security Program Manager Goal (LTG) Decrease Oswestry to no greater than 15% as measure of improved activity tolerance LTG Duration 10/02/22 1 Impairment pain Impairment LBP and ronal LE pain 6/10, spikes to 8/10 at times Security Program Manager Goal (LTG) Decrase pain to no greater than 4/10 with all usual activities LTG Duration 10/01/22 Assessment Summary Assessment Pt good feedback response to cuing for better upright posturing, CS/ TS/LS and TA for uneven seated stability. Initiated open book scapular ROM and TS rotation and wall posture to allow mid thoracic mobiltiy and posture awareness for carryover walking and back health. Less forward posture end tx. Physical Therapy Plan Frequency and Duration Frequency of Treatment 2x/Week Duration of treatment (weeks) 8 Plan of Care Start Date 08/02/22 Plan of Care End Date 10/02/22 Therapeutic Interventions Therapeutic Interventions Home Exercise Program,Manual Therapy,Neuromuscular Re- education,Patient/Caregiver Education,Self-Care/Home Management,Soft Tissue Mobilization,Taping, Therapeutic Activities, Therapeutic Exercises Modalities Cold Pack/Ice Massage,Electric Stimulation,Hot Packs, Traction- Mechanical, Ultrasound Next Visit Focus/Plan Next Note Type Treatment Note Next Visit Plan Recheck HEP HOs: add standing shld ext/TA. standing progression. POC: Continue core strengthening, functional closed chain strengthening and stabilization.
--- NOTE | 2022-08-24 16:57 | PT.OTN ---
Current Diagnoses Spondylosis without myelopathy or radiculopathy, lumbar region (08/24/22) Abnormal posture (08/24/22) Weakness (08/24/22) Physical Therapy Treatment Note PT-OP-A Visit Information Start: 08/01/22 08:34 Freq: Status: Active Protocol: Document 08/24/22 10:34 SAK (Rec: 08/24/22 11:17 SAK [id number]) Out-Patient Physical Therapy Visit Information Visit Information Visit Type Treatment Note Visit Start Time 10:34 Visit Stop Time 11:15 Total Visit Minutes 41 Visit Number 7 Number of ANALYTICS ANALYST Visits 0 Precautions Precautions PMH: Actinic keratosis Ankle pain (~2001) Carpal tunnel syndrome (~2014) Cervical somatic dysfunction Chronic migraine without aura, with status migrainosus Chronic neck and back pain Chronic right shoulder pain Cranial somatic dysfunction Erectile dysfunction Fibromyalgia (~2014) Fractures (~1983) GERD (gastroesophageal reflux disease) (~2011) Headache (~1995) Hearing loss Hemicrania continua Herpes (~1995) History of urinary incontinence (~2019) Hypothyroidism (acquired) Lower urinary tract symptoms ( LUTS) Lumbar region somatic dysfunction Melanoma (~2009) Migraines (~1995) Pelvic somatic dysfunction Post-void dribbling Removal of staple Rib pain on right side Sacral region somatic dysfunction Scalp laceration Sciatic pain Segmental and somatic dysfunction of abdomen and other regions Segmental and somatic dysfunction of rib cage Shoulder pain (~1999) Skin cancer (~2012) Sleep apnea (~2014) Somatic dysfunction of lower extremity Stiffness of finger joint of right hand Thoracic region somatic dysfunction Tinnitus (~2009) Vasculogenic erectile dysfunction Surgical History (Reviewed @ 21:11 by Skinny Bishop DO) Anesthesia History of carpal tunnel surgery History of fusion of cervical spine (~1995) History of fusion of cervical spine History of heart artery stent (~2012) History of hernia repair History of laminectomy (~2003) History of lumbar fusion (~ 2000) Pyloric stenosis (~1943) S/P TURP (status post transurethral resection of prostate) PT-OP-B Current Condition Start: 08/01/22 08:34 Freq: Status: Active Protocol: Document 08/17/22 10:37 SAK (Rec: 08/17/22 11:15 SAK [id number]) Current Condition History of Current Condition Onset Date 20+ years Current Complaints LBP, difficulty sleeping and walking History of Current Condition Right SI fusion 2000. Most recently hemilaminectomy and foraminiotomy 01/07/23 L4-S1. Surgery by Dr. Khalil. Immediately after surgery some decrease in pain but pain has been gradually increasing again, taking Methocarbomol and Tramadol with minimal effect. Not doing anything else for pain. Referral messed up took a long time to get in for PT. L34 is fused. Pain is constant, increases with bending forward to right and left (left greater than right), slight with backward. N/T ronal LE's. Walking sometimes drags right heel. Pain worst with laying down, best with standing. Prior Treatments and Tests As above PT-OP-C Subjective Start: 08/01/22 08:34 Freq: Status: Active Protocol: Document 08/24/22 10:34 [facility] (Rec: 08/24/22 11:17 [facility] [id number]) OP-PT Subjective Patient Comments Patient Comments Trigger point injections on neck; helped yesterday, pain increased again today. After done with PT for low back, will be getting a prescription for PT for neck. Yesterday lower back and LE's very weak and tingly, doesn't think he did anything day before to irritate except raising bed up . Going to make appointment with doctor due to cont LB pain, N/T in LE's PT-OP-G Mobility & Gait Start: 08/01/22 08:34 Freq: Status: Active Protocol: Document 08/02/22 08:08 [facility] (Rec: 08/03/22 14:50 [facility] [id number]) OP Gait Assessment Gait Gait Assistance Required: Independent Assistive Devices Assistive Device None Gait Deviations General Gait Pattern Antalgic,Decreased Stride Length,Festinating,Flexed Trunk Factors Limiting Gait Function Factors Limiting Gait Function Pain PT-OP-H Neuro Start: 08/01/22 08:34 Freq: Status: Active Protocol: Document 08/02/22 08:08 [facility] (Rec: 08/03/22 14:50 [facility] [id number]) Sensation Evaluation Gross Sensation Gross Sensation Left LE Impaired,Right LE Impaired Sensation Description Paresthesia,Pain Deep Tendon Reflex & Clonus Assessment Deep Tendon Reflex Bilateral Patellar Deep Tendon Reflex 1+ Diminished PT-OP-J Posture/Palpation/Skin Start: 08/01/22 08:34 Freq: Status: Active Protocol: Document 08/02/22 08:08 [facility] (Rec: 08/02/22 09:02 [facility] [id number]) Posture Evaluation Position Standing Head/C-Spine Posture Forward Head T-Spine Posture Increased Kyphosis L-Spine Posture Flattened Shoulder Posture (L) Rounded,(R) Rounded Scapula Posture (L) Protracted,(R) Protracted Arm Posture (L) Internally Rotated,(R) Internally Rotated Pelvis Posture Posterior Tilted Hip Posture (L) Externally Rotated,(R) Externally Rotated Palpation Assessment Location lumbar Palpation Findings Soft Tissue Tightness,Muscle Guarding,Tenderness PT-OP-L Special Tests Start: 08/01/22 08:34 Freq: Status: Active Protocol: Document 08/02/22 08:08 [facility] (Rec: 08/03/22 14:50 [facility] [id number]) Special Tests Lumbar Spine Special Tests Manual Traction Test Results positive decrease in pain Darian Test Results positive for muscle tightness Straight Leg Raise Test Results positive for mod muscle tightness PT-OP-M Strength Start: 08/01/22 08:34 Freq: Status: Active Protocol: Document 08/02/22 08:08 [facility] (Rec: 08/03/22 14:50 [facility] [id number]) Trunk Strength Trunk Manual Muscle Testing Flexion 3+ Fair+ Extension 3+ Fair+ Core Stabilization poor Hip Strength Hip Manual Muscle Testing ronal Flexion (L2) 3+ Fair+ Extension (S1) 3 Fair Abduction 3 Fair External Rotation 3+ Fair+ Internal Rotation 3+ Fair+ Knee Strength Knee Manual Muscle Testing ronal Flexion (S2) 4 Good Extension (L3) 4 Good Ankle/Foot Strength Ankle and Foot Manual Muscle Testing Right Dorsiflexion (L4) 4- Good- Plantarflexion (S1) 4- Good- Left Dorsiflexion (L4) 4 Good Plantarflexion (S1) 4 Good PT-OP-Q Treatments Start: 08/01/22 08:34 Freq: Status: Active Protocol: Document 08/24/22 10:34 [facility] (Rec: 08/24/22 11:18 [facility] [id number]) Manual Therapy Treatment Soft Tissue Mobilization TS, LS Body Location L/S Mobilization Type Myofascial Release,Rolling, Sustained Pressure Body Position Sidelying Comments left sidelying Manual Traction Lumbar Body Position Hooklying Reps/Duration 5 min Comments 30 sec holds, 10 sec rest PT-OP-R Modalities Start: 08/01/22 08:34 Freq: Status: Active Protocol: Document 08/24/22 10:34 [facility] (Rec: 08/24/22 11:17 [facility] [id number]) Spinal Traction Traction Treatment Lumbar Method Static Patient Position Supine Force Applied (Pounds) 42 Duration of Treatment (Minutes) 10 Heating Pad Applied No [facility]raction Treatment [facility]. After 10 min, straps undone, patient rested supine x 5 min before getting up PT-OP-T Assessment and Plan Start: 08/01/22 08:34 Freq: Status: Active Protocol: Document 08/24/22 10:34 [facility] (Rec: 08/24/22 11:17 [facility] [id number]) Physical Therapy Assessment Goals 3 Impairment interrupted sleep, hard to walk any distance Short Term Goal (STG) Patient to report ability to sleep for 4 hour stretches at a time without waking due to pain and able to walk for 15 min without inc in pain 08/13/22: progressing : uninterupted sleep about 3 hrs to stretch little then 4 hrs then have to get up. STG Duration 09/02/22 progressing 08/13/22 [facility] Goal (LTG) Patient to report ability sleep for 5-6 hour stretch at a time without waking due to pain and be able to walk for 30 min without inc in pain LTG Duration 10/02/22 2 Impairment activity tolerance Impairment Oswestry score 28% Short Term Goal (STG) dec Oswestry to no greater than 20% as measure of improved activity tolerance STG Duration 09/02/22 [employer] Goal (LTG) Decrease Oswestry to no greater than 15% as measure of improved activity tolerance LTG Duration 10/02/22 1 Impairment pain Impairment LBP and ronal LE pain 6/10, spikes to 8/10 at times [facility] Goal (LTG) Decrease pain to no greater than 4/10 with all usual activities LTG Duration 10/01/22 Assessment Summary Assessment Patient low back pain and radicular symptoms into LE's persists. Pt felt tingling into right LE in left s/l with palpation right L34 with rotation at that level noted. Unable to better align with manual techniques. Manual traction improved spinal symptoms so gentle mechanical traction performed with good tolerance. Physical Therapy Plan Frequency and Duration Frequency of Treatment 2x/Week Duration of treatment (weeks) 8 Plan of Care Start Date 03/13/23 Plan of Care End Date 10/02/22 Therapeutic Interventions Therapeutic Interventions Home Exercise Program,Manual Therapy,Neuromuscular Re- education,Patient/Caregiver Education,Self-Care/Home Management,Soft Tissue Mobilization,Taping, Therapeutic Activities, Therapeutic Exercises Modalities Cold Pack/Ice Massage,Electric Stimulation,Hot Packs, Traction- Mechanical, Ultrasound Next Visit Focus/Plan Next Note Type Treatment Note Next Visit Plan Assess response to static traction with [facility] traction unit. Continue manual, core strengtheing and stab, flexibility as tolerated Consider kinesiotape space correction technique L34
--- NOTE | 2022-08-27 13:04 | PT.OTN ---
Current Diagnoses Spondylosis without myelopathy or radiculopathy, lumbar region (08/27/22) Abnormal posture (08/27/22) Weakness (08/27/22) Physical Therapy Treatment Note PT-OP-A Visit Information Start: 08/01/22 08:34 Freq: Status: Active Protocol: Document 08/27/22 12:18 SP (Rec: 08/27/22 13:07 SP [id number]) Out-Patient Physical Therapy Visit Information Visit Information Visit Type Treatment Note Visit Start Time 12:18 Visit Stop Time 13:04 Total Visit Minutes 46 Visit Number 8 Number of DIRECTOR OF DEMENTIA OPERATIONS Visits 1 Evaluation Information Evaluation Date 08/02/22 Precautions Precautions PMH: Actinic keratosis Ankle pain (~2001) Carpal tunnel syndrome (~2014) Cervical somatic dysfunction Chronic migraine without aura, with status migrainosus Chronic neck and back pain Chronic right shoulder pain Cranial somatic dysfunction Erectile dysfunction Fibromyalgia (~2014) Fractures (~1983) GERD (gastroesophageal reflux disease) (~2011) Headache (~1995) Hearing loss Hemicrania continua Herpes (~1995) History of urinary incontinence (~2019) Hypothyroidism (acquired) Lower urinary tract symptoms ( LUTS) Lumbar region somatic dysfunction Melanoma (~2009) Migraines (~1995) Pelvic somatic dysfunction Post-void dribbling Removal of staple Rib pain on right side Sacral region somatic dysfunction Scalp laceration Sciatic pain Segmental and somatic dysfunction of abdomen and other regions Segmental and somatic dysfunction of rib cage Shoulder pain (~1999) Skin cancer (~2012) Sleep apnea (~2014) Somatic dysfunction of lower extremity Stiffness of finger joint of right hand Thoracic region somatic dysfunction Tinnitus (~2009) Vasculogenic erectile dysfunction Surgical History (Reviewed @ 21:11 by Skinny Bishop DO) Anesthesia History of carpal tunnel surgery History of fusion of cervical spine (~1995) History of fusion of cervical spine History of heart artery stent (~2012) History of hernia repair History of laminectomy (~2003) History of lumbar fusion (~ 2000) Pyloric stenosis (~194) S/P TURP (status post transurethral resection of prostate) PT-OP-B Current Condition Start: 08/01/22 08:34 Freq: Status: Active Protocol: Document 08/17/22 10:37 SAK (Rec: 08/17/22 11:15 SAK [id number]) Current Condition History of Current Condition Onset Date 20+ years Current Complaints LBP, difficulty sleeping and walking History of Current Condition Right SI fusion 2000. Most recently hemilaminectomy and foraminiotomy 01/07/23 L4-S1. Surgery by Dr. Khalil. Immediately after surgery some decrease in pain but pain has been gradually increasing again, taking Methocarbomol and Tramadol with minimal effect. Not doing anything else for pain. Referral messed up took a long time to get in for PT. L34 is fused. Pain is constant, increases with bending forward to right and left (left greater than right), slight with backward. N/T ronal LE's. Walking sometimes drags right heel. Pain worst with laying down, best with standing. Prior Treatments and Tests As above PT-OP-C Subjective Start: 08/01/22 08:34 Freq: Status: Active Protocol: Document 08/27/22 12:18 SP (Rec: 08/27/22 13:07 SP [id number]) OP-PT Subjective Patient Comments Patient Comments Pt stated didn't see a significant improvement in back with static traction last tx, not sure helped. He reports injection recently in neck helped for 1-2 days now not seeing relief. Pain today neck, R lateral ribcage, low back is ok, tingling both leg to foot still. PT-OP-G Mobility & Gait Start: 08/01/22 08:34 Freq: Status: Active Protocol: Document 08/02/22 08:08 [facility] (Rec: 08/03/22 14:50 [facility] [id number]) OP Gait Assessment Gait Gait Assistance Required: Independent Assistive Devices Assistive Device None Gait Deviations General Gait Pattern Antalgic,Decreased Stride Length,Festinating,Flexed Trunk Factors Limiting Gait Function Factors Limiting Gait Function Pain PT-OP-H Neuro Start: 08/01/22 08:34 Freq: Status: Active Protocol: Document 08/02/22 08:08 SAK (Rec: 08/03/22 14:50 [facility] [id number]) Sensation Evaluation Gross Sensation Gross Sensation Left LE Impaired,Right LE Impaired Sensation Description Paresthesia,Pain Deep Tendon Reflex & Clonus Assessment Deep Tendon Reflex Bilateral Patellar Deep Tendon Reflex 1+ Diminished PT-OP-J Posture/Palpation/Skin Start: 08/01/22 08:34 Freq: Status: Active Protocol: Document 08/02/22 08:08 SAK (Rec: 08/02/22 09:02 SAK [id number]) Posture Evaluation Position Standing Head/C-Spine Posture Forward Head T-Spine Posture Increased Kyphosis L-Spine Posture Flattened Shoulder Posture (L) Rounded,(R) Rounded Scapula Posture (L) Protracted,(R) Protracted Arm Posture (L) Internally Rotated,(R) Internally Rotated Pelvis Posture Posterior Tilted Hip Posture (L) Externally Rotated,(R) Externally Rotated Palpation Assessment Location lumbar Palpation Findings Soft Tissue Tightness,Muscle Guarding,Tenderness PT-OP-L Special Tests Start: 08/01/22 08:34 Freq: Status: Active Protocol: Document 08/02/22 08:08 [facility] (Rec: 08/03/22 14:50 SAK [id number]) Special Tests Lumbar Spine Special Tests Manual Traction Test Results positive decrease in pain Darian Test Results positive for muscle tightness Straight Leg Raise Test Results positive for mod muscle tightness PT-OP-M Strength Start: 08/01/22 08:34 Freq: Status: Active Protocol: Document 08/02/22 08:08 [facility] (Rec: 08/03/22 14:50 [facility] [id number]) Trunk Strength Trunk Manual Muscle Testing Flexion 3+ Fair+ Extension 3+ Fair+ Core Stabilization poor Hip Strength Hip Manual Muscle Testing ronal Flexion (L2) 3+ Fair+ Extension (S1) 3 Fair Abduction 3 Fair External Rotation 3+ Fair+ Internal Rotation 3+ Fair+ Knee Strength Knee Manual Muscle Testing ronal Flexion (S2) 4 Good Extension (L3) 4 Good Ankle/Foot Strength Ankle and Foot Manual Muscle Testing Right Dorsiflexion (L4) 4- Good- Plantarflexion (S1) 4- Good- Left Dorsiflexion (L4) 4 Good Plantarflexion (S1) 4 Good PT-OP-Q Treatments Start: 08/01/22 08:34 Freq: Status: Active Protocol: Document 08/27/22 12:18 SP (Rec: 08/27/22 13:07 SP [id number]) Therapeutic Exercises Supine Exercises diaphramatic breath Supine Exercise Name reviewed self past HEP for pain and mobililty relaxation Reps/Minutes 2 min Comments good form, hand on abdomen self feedback and apply throughout ther ex Transverse abdominis Reps/Minutes 10x5 Comments cues for TrA draw in gentle- painfree ball squeeze Supine Exercise Name discussed glut ease off- pelvic realignment focus today Equipment Used foam roll (paper towel roll home) Reps/Minutes 10x Comments cues for core activation, switched to seated due to reflux HS stretch Supine Exercise Name HEP reviewed w/ AP: sciatic nerve glide Side left Equipment Used towel back thigh better form Reps/Minutes 2x30 Comments good feedback ROM, no worsening back nor tingling and able to move Sitting Exercises ball squeeze Sitting Exercise Name discussed continue home Manual Therapy Treatment Soft Tissue Mobilization TS, LS Body Location L/S: paraspinal, ES, post glut med inferior iliac crest, intercostal T8-10 Mobilization Type Myofascial Release,Rolling, Sustained Pressure Intensity/Depth Moderate Body Position Prone Comments decreased tightness, sustained pressure with breath CS Body Location BUT, LS, ES Mobilization Type Myofascial Release Intensity/Depth Moderate Body Position supine, bolster under BLE Comments good feedback manual and ed use therancane MWM head nods turns and postural alignment chest lift walking for support . PT-OP-R Modalities Start: 08/01/22 08:34 Freq: Status: Active Protocol: Document 08/24/22 10:34 SAK (Rec: 08/24/22 11:17 SAK [id number]) Spinal Traction Traction Treatment Lumbar Method Static Patient Position Supine Force Applied (Pounds) 42 Duration of Treatment (Minutes) 10 Heating Pad Applied No Traction Treatment Comment [facility] traction unit. After 10 min, straps undone, patient rested supine x 5 min before getting up PT-OP-T Assessment and Plan Start: 08/01/22 08:34 Freq: Status: Active Protocol: Document 08/27/22 12:18 SP (Rec: 08/27/22 13:07 SP [id number]) Physical Therapy Assessment Goals 3 Impairment interrupted sleep, hard to walk any distance Short Term Goal (STG) Patient to report ability to sleep for 4 hour stretches at a time without waking due to pain and able to walk for 15 min without inc in pain 08/13/22: progressing : uninterupted sleep about 3 hrs to stretch little then 4 hrs then have to get up. STG Duration 09/02/22 progressing 08/13/22 Long-Term Goal (LTG) Patient to report ability sleep for 5-6 hour stretch at a time without waking due to pain and be able to walk for 30 min without inc in pain LTG Duration 10/02/22 2 Impairment activity tolerance Impairment Oswestry score 28% Short Term Goal (STG) dec Oswestry to no greater than 20% as measure of improved activity tolerance STG Duration 09/02/22 Long-Term Goal (LTG) Decrease Oswestry to no greater than 15% as measure of improved activity tolerance LTG Duration 10/02/22 1 Impairment pain Impairment LBP and ronal LE pain 6/10, spikes to 8/10 at times Arranging Funeral Director Goal (LTG) Decrease pain to no greater than 4/10 with all usual activities LTG Duration 10/01/22 Assessment Summary Assessment Pt responded well to manual and modifiec HEP, instructed to just perform HEP basic TA with good feedback decreased stess on neck and low back this tx. Will reassess HEP next tx for ability to continue progressing to previous HEP. Pt will bring HOs to continue to write feedback modifications if needed. Physical Therapy Plan Frequency and Duration Frequency of Treatment 2x/Week Duration of treatment (weeks) 8 Plan of Care Start Date 08/02/22 Plan of Care End Date 10/02/22 Therapeutic Interventions Therapeutic Interventions Home Exercise Program,Manual Therapy,Neuromuscular Re- education,Patient/Caregiver Education,Self-Care/Home Management,Soft Tissue Mobilization,Taping, Therapeutic Activities, Therapeutic Exercises Modalities Cold Pack/Ice Massage,Electric Stimulation,Hot Packs, Traction- Mechanical, Ultrasound Next Visit Focus/Plan Next Note Type Treatment Note Next Visit Plan Continue recheck tolerated HEP , modifiy if needed, recheck sciatic nerve glide/ active HS stretch. Review use breath for relaxing tension during ex , sitting/standing. POC: Continue manual, core strengtheing and stab, flexibility as tolerated Consider kinesiotape space correction technique L34 [place] Traction if needed.
--- NOTE | 2022-08-31 15:27 | PT.OTN ---
Current Diagnoses Spondylosis without myelopathy or radiculopathy, lumbar region (08/31/22) Abnormal posture (08/31/22) Weakness (08/31/22) Physical Therapy Treatment Note PT-OP-A Visit Information Start: 08/01/22 08:34 Freq: Status: Active Protocol: Document 08/31/22 13:14 SW (Rec: 08/31/22 13:16 SW [id number]) Out-Patient Physical Therapy Visit Information Visit Information Visit Type Treatment Note Visit Start Time 10:25 Visit Stop Time 11:10 Total Visit Minutes 45 Visit Number 9 Number of COAL DELIVERER Visits 2 PT-OP-B Current Condition Start: 08/01/22 08:34 Freq: Status: Active Protocol: Document 08/17/22 10:37 SAK (Rec: 08/17/22 11:15 SAK [id number]) Current Condition History of Current Condition Onset Date 20+ years Current Complaints LBP, difficulty sleeping and walking History of Current Condition Right SI fusion 2000. Most recently hemilaminectomy and foraminiotomy 01/07/23 L4-S1. Surgery by Dr. Khalil. Immediately after surgery some decrease in pain but pain has been gradually increasing again, taking Methocarbomol and Tramadol with minimal effect. Not doing anything else for pain. Referral messed up took a long time to get in for PT. L34 is fused. Pain is constant, increases with bending forward to right and left (left greater than right), slight with backward. N/T ronal LE's. Walking sometimes drags right heel. Pain worst with laying down, best with standing. Prior Treatments and Tests As above PT-OP-C Subjective Start: 08/01/22 08:34 Freq: Status: Active Protocol: Document 08/31/22 10:25 SW (Rec: 08/31/22 11:15 SW [id number]) OP-PT Subjective Patient Comments Patient Comments Pt reports he is feeling pretty good today. Yesterday he did work on a boat, which involved bending, twisting, lifting and he tolerated it well. States little relief from manual therapy to cervical spine last tx, but with rest over the weekend he noticed decreased symptoms. PT-OP-G Mobility & Gait Start: 08/01/22 08:34 Freq: Status: Active Protocol: Document 08/02/22 08:08 SAK (Rec: 08/03/22 14:50 [facility] [id number]) OP Gait Assessment Gait Gait Assistance Required: Independent Assistive Devices Assistive Device None Gait Deviations General Gait Pattern Antalgic,Decreased Stride Length,Festinating,Flexed Trunk Factors Limiting Gait Function Factors Limiting Gait Function Pain PT-OP-H Neuro Start: 08/01/22 08:34 Freq: Status: Active Protocol: Document 08/02/22 08:08 [facility] (Rec: 08/03/22 14:50 [facility] [id number]) Sensation Evaluation Gross Sensation Gross Sensation Left LE Impaired,Right LE Impaired Sensation Description Paresthesia,Pain Deep Tendon Reflex & Clonus Assessment Deep Tendon Reflex Bilateral Patellar Deep Tendon Reflex 1+ Diminished PT-OP-J Posture/Palpation/Skin Start: 08/01/22 08:34 Freq: Status: Active Protocol: Document 08/02/22 08:08 [facility] (Rec: 08/02/22 09:02 [facility] [id number]) Posture Evaluation Position Standing Head/C-Spine Posture Forward Head T-Spine Posture Increased Kyphosis L-Spine Posture Flattened Shoulder Posture (L) Rounded,(R) Rounded Scapula Posture (L) Protracted,(R) Protracted Arm Posture (L) Internally Rotated,(R) Internally Rotated Pelvis Posture Posterior Tilted Hip Posture (L) Externally Rotated,(R) Externally Rotated Palpation Assessment Location lumbar Palpation Findings Soft Tissue Tightness,Muscle Guarding,Tenderness PT-OP-L Special Tests Start: 08/01/22 08:34 Freq: Status: Active Protocol: Document 08/02/22 08:08 [facility] (Rec: 08/03/22 14:50 [facility] [id number]) Special Tests Lumbar Spine Special Tests Manual Traction Test Results positive decrease in pain Adrian Test Results positive for muscle tightness Straight Leg Raise Test Results positive for mod muscle tightness PT-OP-M Strength Start: 08/01/22 08:34 Freq: Status: Active Protocol: Document 08/02/22 08:08 [facility] (Rec: 08/03/22 14:50 [facility] [id number]) Trunk Strength Trunk Manual Muscle Testing Flexion 3+ Fair+ Extension 3+ Fair+ Core Stabilization poor Hip Strength Hip Manual Muscle Testing ronal Flexion (L2) 3+ Fair+ Extension (S1) 3 Fair Abduction 3 Fair External Rotation 3+ Fair+ Internal Rotation 3+ Fair+ Knee Strength Knee Manual Muscle Testing ronal Flexion (S2) 4 Good Extension (L3) 4 Good Ankle/Foot Strength Ankle and Foot Manual Muscle Testing Right Dorsiflexion (L4) 4- Good- Plantarflexion (S1) 4- Good- Left Dorsiflexion (L4) 4 Good Plantarflexion (S1) 4 Good PT-OP-Q Treatments Start: 08/01/22 08:34 Freq: Status: Active Protocol: Document 08/31/22 10:25 SW (Rec: 08/31/22 11:15 SW [id number]) Cardio Equipment Recumbent Elliptical (Biodex) Duration (Minutes) 6 Resistance 6 Seat Position 8 Gym Equipment Therapeutic Ball seated Exercise Details ALBINO Lamb (attempted) Ball Size/Color Green Body Position Sitting Comments 2 x 10 ALBINO Lamb attempted but unable to maintain core activation and good posture. Therapeutic Exercises Supine Exercises piriformis stretch Side right Transverse abdominis Reps/Minutes 10x5 Comments cues for TrA draw in gentle- painfree ball squeeze Supine Exercise Name discussed glut ease off- pelvic realignment focus today Equipment Used foam roll (paper towel roll home) Reps/Minutes 10x Comments cues for core activation, switched to seated due to reflux HS stretch Supine Exercise Name HEP reviewed w/ AP: sciatic nerve glide Side left Equipment Used towel back thigh better form Reps/Minutes 2x30 Comments good feedback ROM, no worsening back nor tingling and able to move Sitting Exercises STS Sitting Exercise Name Mesh chair Reps/Minutes 3x10 Comments VC for forward hips, hip abd, and glute activation ball squeeze Reps/Minutes 2x10 Comments attempted to increase reps, unable to increase d/t mm fatigue HS stretch Reps/Minutes 2x30 piriformis stretch Reps/Minutes 20x30 Comments Tissue resistance upon position, may benefit adding to HEP figure 4 Reps/Minutes 2x30 Standing Exercises resisted walking Standing Exercise Name fwd/back, side Resistance red band Reps/Minutes 10 ft x 2 ea PT-OP-R Modalities Start: 08/01/22 08:34 Freq: Status: Active Protocol: Document 08/24/22 10:34 SAK (Rec: 08/24/22 11:17 SAK [id number]) Spinal Traction Traction Treatment Lumbar Method Static Patient Position Supine Force Applied (Pounds) 42 Duration of Treatment (Minutes) 10 Heating Pad Applied [facility]. After 10 min, straps undone, patient rested supine x 5 min before getting up PT-OP-T Assessment and Plan Start: 08/01/22 08:34 Freq: Status: Active Protocol: Document 08/31/22 10:25 SW (Rec: 08/31/22 11:15 SW [id number]) Physical Therapy Assessment Goals 3 Impairment interrupted sleep, hard to walk any distance Short Term Goal (STG) Patient to report ability to sleep for 4 hour stretches at a time without waking due to pain and able to walk for 15 min without inc in pain 08/13/22: progressing : uninterupted sleep about 3 hrs to stretch little then 4 hrs then have to get up. 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 Goal (LTG) Patient to report ability sleep for 5-6 hour stretch at a time without waking due to pain and be able to walk for 30 min without inc in pain LTG Duration 10/02/22 2 Impairment activity tolerance Impairment Oswestry score 28% Short Term Goal (STG) dec Oswestry to no greater than 20% as measure of improved activity tolerance STG Duration 09/02/22 [facility] Goal (LTG) Decrease Oswestry to no greater than 15% as measure of improved activity tolerance LTG Duration 10/02/22 1 Impairment pain Impairment LBP and ronal LE pain 6/10, spikes to 8/10 at times [facility] Goal (LTG) Decrease pain to no greater than 4/10 with all usual activities LTG Duration 10/01/22 Assessment Summary Assessment Pt reported feeling well today , focused tx on core stability, strengthening, and stretching this session without the need for manual therapy today. VC'ing required throughout session for TA activation, without holding breath. Worked on core stability on ball, improved stability and core activation with VC to decrease the use of accessory motions while marching. Plan to assess pt tolerance to tx next session. Physical Therapy Plan Frequency and Duration Frequency of Treatment 2x/Week Duration of treatment (weeks) 8 Plan of Care Start Date 08/02/22 Plan of Care End Date 10/02/22 Therapeutic Interventions Therapeutic Interventions Home Exercise Program,Manual Therapy,Neuromuscular Re- education,Patient/Caregiver Education,Self-Care/Home Management,Soft Tissue Mobilization,Taping, Therapeutic Activities, Therapeutic Exercises Modalities Cold Pack/Ice Massage,Electric Stimulation,Hot Packs, Traction- Mechanical, Ultrasound Next Visit Focus/Plan Next Note Type Treatment Note Next Visit Plan Continue recheck tolerated HEP , modifiy if needed, recheck sciatic nerve glide/ active HS stretch. Review use breath for relaxing tension during ex , sitting/standing. POC: Continue manual, core strengtheing and stab, flexibility as tolerated Consider kinesiotape space correction technique L34 [place] Traction if needed.
--- NOTE | 2022-09-03 13:00 | PT.OTN ---
Current Diagnoses Spondylosis without myelopathy or radiculopathy, lumbar region (09/03/22) Abnormal posture (09/03/22) Weakness (09/03/22) Physical Therapy Treatment Note PT-OP-A Visit Information Start: 08/01/22 08:34 Freq: Status: Active Protocol: Document 09/03/22 12:17 SP (Rec: 09/03/22 13:04 SP [id number]) Out-Patient Physical Therapy Visit Information Visit Information Visit Type Treatment Note Visit Start Time 12:17 Visit Stop Time 13:00 Total Visit Minutes 43 Visit Number 10 Number of PATIENT EDUCATOR Visits 3 Evaluation Information Evaluation Date 08/02/22 Precautions Precautions PMH: Actinic keratosis Ankle pain (~2001) Carpal tunnel syndrome (~2014) Cervical somatic dysfunction Chronic migraine without aura, with status migrainosus Chronic neck and back pain Chronic right shoulder pain Cranial somatic dysfunction Erectile dysfunction Fibromyalgia (~2014) Fractures (~1983) GERD (gastroesophageal reflux disease) (~2011) Headache (~1995) Hearing loss Hemicrania continua Herpes (~1995) History of urinary incontinence (~2019) Hypothyroidism (acquired) Lower urinary tract symptoms ( LUTS) Lumbar region somatic dysfunction Melanoma (~2009) Migraines (~1995) Pelvic somatic dysfunction Post-void dribbling Removal of staple Rib pain on right side Sacral region somatic dysfunction Scalp laceration Sciatic pain Segmental and somatic dysfunction of abdomen and other regions Segmental and somatic dysfunction of rib cage Shoulder pain (~1999) Skin cancer (~2012) Sleep apnea (~2014) Somatic dysfunction of lower extremity Stiffness of finger joint of right hand Thoracic region somatic dysfunction Tinnitus (~2009) Vasculogenic erectile dysfunction Surgical History (Reviewed @ 21:11 by Skinny Bishop DO) Anesthesia History of carpal tunnel surgery History of fusion of cervical spine (~1995) History of fusion of cervical spine History of heart artery stent (~2012) History of hernia repair History of laminectomy (~2003) History of lumbar fusion (~ 2000) Pyloric stenosis (~194) S/P TURP (status post transurethral resection of prostate) PT-OP-B Current Condition Start: 08/01/22 08:34 Freq: Status: Active Protocol: Document 08/17/22 10:37 SAK (Rec: 08/17/22 11:15 SAK [id number]) Current Condition History of Current Condition Onset Date 20+ years Current Complaints LBP, difficulty sleeping and walking History of Current Condition Right SI fusion 2000. Most recently hemilaminectomy and foraminiotomy 01/07/23 L4-S1[address] Surgery [address] Dr. Khalil. Immediately after surgery some decrease in pain but pain has been gradually increasing again, taking Methocarbomol and Tramadol with minimal effect. Not doing anything else for pain. Referral messed up took a long time to get in for PT. L34 is fused. Pain is constant, increases with bending forward to right and left (left greater than right), slight with backward. N/T ronal LE's. Walking sometimes drags right heel. Pain worst with laying down, best with standing. 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 Today R rib and hip area sore. PT-OP-G Mobility & Gait Start: 08/01/22 08:34 Freq: Status: Active Protocol: Document 08/02/22 08:08 [facility] (Rec: 08/03/22 14:50 [facility] [id number]) OP Gait Assessment Gait Gait Assistance Required: Independent Assistive Devices Assistive Device None Gait Deviations General Gait Pattern Antalgic,Decreased Stride Length,Festinating,Flexed Trunk Factors Limiting Gait Function Factors Limiting Gait Function Pain PT-OP-H Neuro Start: 08/01/22 08:34 Freq: Status: Active Protocol: Document 08/02/22 08:08 SAK (Rec: 08/03/22 14:50 [facility] [id number]) Sensation Evaluation Gross Sensation Gross Sensation Left LE Impaired,Right LE Impaired Sensation Description Paresthesia,Pain Deep Tendon Reflex & Clonus Assessment Deep Tendon Reflex Bilateral Patellar Deep Tendon Reflex 1+ Diminished PT-OP-J Posture/Palpation/Skin Start: 08/01/22 08:34 Freq: Status: Active Protocol: Document 08/02/22 08:08 SAK (Rec: 08/02/22 09:02 SAK [id number]) Posture Evaluation Position Standing Head/C-Spine Posture Forward Head T-Spine Posture Increased Kyphosis L-Spine Posture Flattened Shoulder Posture (L) Rounded,(R) Rounded Scapula Posture (L) Protracted,(R) Protracted Arm Posture (L) Internally Rotated,(R) Internally Rotated Pelvis Posture Posterior Tilted Hip Posture (L) Externally Rotated,(R) Externally Rotated Palpation Assessment Location lumbar Palpation Findings Soft Tissue Tightness,Muscle Guarding,Tenderness PT-OP-L Special Tests Start: 08/01/22 08:34 Freq: Status: Active Protocol: Document 08/02/22 08:08 [facility] (Rec: 08/03/22 14:50 [facility] [id number]) Special Tests Lumbar Spine Special Tests Manual Traction Test Results positive decrease in pain Darian Test Results positive for muscle tightness Straight Leg Raise Test Results positive for mod muscle tightness PT-OP-M Strength Start: 08/01/22 08:34 Freq: Status: Active Protocol: Document 08/02/22 08:08 [facility] (Rec: 08/03/22 14:50 [facility] [id number]) Trunk Strength Trunk Manual Muscle Testing Flexion 3+ Fair+ Extension 3+ Fair+ Core Stabilization poor Hip Strength Hip Manual Muscle Testing ronal Flexion (L2) 3+ Fair+ Extension (S1) 3 Fair Abduction 3 Fair External Rotation 3+ Fair+ Internal Rotation 3+ Fair+ Knee Strength Knee Manual Muscle Testing ronal Flexion (S2) 4 Good Extension (L3) 4 Good Ankle/Foot Strength Ankle and Foot Manual Muscle Testing Right Dorsiflexion (L4) 4- Good- Plantarflexion (S1) 4- Good- Left Dorsiflexion (L4) 4 Good Plantarflexion (S1) 4 Good PT-OP-Q Treatments Start: 08/01/22 08:34 Freq: Status: Active Protocol: Document 09/03/22 12:17 SP (Rec: 09/03/22 13:04 SP [id number]) Cardio Equipment Recumbent Elliptical (Biodex) Duration (Minutes) 6 Resistance 6 Seat Position 8 Other UEs/ LEs: 568 steps, 50 RPMs Therapeutic Exercises Supine Exercises LTR, KFO Supine Exercise Name self HEP Side bilateral Resistance table, Tball 55cm Reps/Minutes x5 reps each Comments good form response HS stretch Supine Exercise Name HEP reviewed w/ AP: sciatic nerve glide Side left Equipment Used towel back thigh better form Reps/Minutes 30 each LE, more tight R Comments good feedback ROM, no worsening back nor tingling and able to move Standing Exercises resisted rows, shld ext Standing Exercise Name added to HEP Resistance TB #2 Reps/Minutes 2x10 Comments cued slow con/eccentric, no LB arch- good core painfree back resisted walking Standing Exercise Name fwd/back, side Resistance red band Reps/Minutes 10 ft x 2 ea Comments R QL irritation 2nd lap- stopped Manual Therapy Treatment Soft Tissue Mobilization TS, LS Body Location RL/S: paraspinal, ES, piriformis, QL Mobilization Type Myofascial Release,Rolling, Sustained Pressure Intensity/Depth Moderate Body Position Sidelying Comments sensitive to pressure with breath PT-OP-R Modalities Start: 08/01/22 08:34 Freq: Status: Active Protocol: Document 08/24/22 10:34 SAK (Rec: 08/24/22 11:17 SAK [id number]) Spinal Traction Traction Treatment Lumbar Method Static Patient Position Supine Force Applied (Pounds) 42 Duration of Treatment (Minutes) 10 Heating Pad Applied No Traction Treatment Comment [place] Home traction unit. After 10 min, straps undone, patient rested supine x 5 min before getting up PT-OP-T Assessment and Plan Start: 08/01/22 08:34 Freq: Status: Active Protocol: Document 09/03/22 12:17 SP (Rec: 09/03/22 13:04 SP [id number]) Physical Therapy Assessment Goals 3 Impairment interrupted sleep, hard to walk any distance Short Term Goal (STG) Patient to report ability to sleep for 4 hour stretches at a time without waking due to pain and able to walk for 15 min without inc in pain 08/13/22: progressing : uninterupted sleep about 3 hrs to stretch little then 4 hrs then have to get up. 09/03/22: GOAL MET got 6 hrs sleep before rib pain woke him up, wakes up stretches and apply heat and seems relieve it. Walked about 20 min incline/decline outside and noted no pain but sore next day. STG Duration 09/02/22 GOAL MET 09/03/22 Alf Goal (LTG) Patient to report ability sleep for 5-6 hour stretch at a time without waking due to pain and be able to walk for 30 min without inc in pain LTG Duration 10/02/22 2 Impairment activity tolerance Impairment Oswestry score 28% Short Term Goal (STG) dec Oswestry to no greater than 20% as measure of improved activity tolerance STG Duration 09/02/22 Alf Goal (LTG) Decrease Oswestry to no greater than 15% as measure of improved activity tolerance LTG Duration 10/02/22 1 Impairment pain Impairment LBP and ronal LE pain 6/10, spikes to 8/10 at times Alf Goal (LTG) Decrease pain to no greater than 4/10 with all usual activities LTG Duration 10/01/22 Assessment Summary Assessment Pt making gains in funcitonal mobility with decrease pain and able sleep longer 5 hrs before pain wakes him up. Good feedback response to ther ex, painfree added resisted rows/ ext supine. Pt had irritation during band walk, told to hold for now. Pt reported less pain in R LB than when arrived . declined head/stim- home Physical Therapy Plan Frequency and Duration Frequency of Treatment 2x/Week Duration of treatment (weeks) 8 Plan of Care Start Date 08/02/22 Plan of Care End Date 10/02/22 Therapeutic Interventions Therapeutic Interventions Home Exercise Program,Manual Therapy,Neuromuscular Re- education,Patient/Caregiver Education,Self-Care/Home Management,Soft Tissue Mobilization,Taping, Therapeutic Activities, Therapeutic Exercises Modalities Cold Pack/Ice Massage,Electric Stimulation,Hot Packs, Traction- Mechanical, Ultrasound Next Visit Focus/Plan Next Note Type Treatment Note Next Visit Plan Continue recheck tolerated HEP , modifiy if needed, recheck sciatic nerve glide/ active HS stretch. Review use breath for relaxing tension during ex , sitting/standing. POC: Continue manual, core strengtheing and stab, flexibility as tolerated Consider kinesiotape space correction technique L34 [place] Traction if needed.
--- NOTE | 2022-09-15 09:03 | PT.OTN ---
Current Diagnoses Spondylosis without myelopathy or radiculopathy, lumbar region (09/15/22) Abnormal posture (09/15/22) Weakness (09/15/22) Physical Therapy Treatment Note PT-OP-A Visit Information Start: 08/01/22 08:34 Freq: Status: Active Protocol: Document 09/15/22 08:21 SP (Rec: 09/15/22 09:05 SP [id number]) Out-Patient Physical Therapy Visit Information Visit Information Visit Type Treatment Note Visit Note PN due 12th visit Visit Start Time 08:21 Visit Stop Time 09:03 Total Visit Minutes 42 Visit Number 11 Number of CODER OPERATOR Visits 4 Evaluation Information Evaluation Date 08/02/22 Precautions Precautions PMH: Actinic keratosis Ankle pain (~2001) Carpal tunnel syndrome (~2014) Cervical somatic dysfunction Chronic migraine without aura, with status migrainosus Chronic neck and back pain Chronic right shoulder pain Cranial somatic dysfunction Erectile dysfunction Fibromyalgia (~2014) Fractures (~1983) GERD (gastroesophageal reflux disease) (~2011) Headache (~1995) Hearing loss Hemicrania continua Herpes (~1995) History of urinary incontinence (~2019) Hypothyroidism (acquired) Lower urinary tract symptoms ( LUTS) Lumbar region somatic dysfunction Melanoma (~2009) Migraines (~1995) Pelvic somatic dysfunction Post-void dribbling Removal of staple Rib pain on right side Sacral region somatic dysfunction Scalp laceration Sciatic pain Segmental and somatic dysfunction of abdomen and other regions Segmental and somatic dysfunction of rib cage Shoulder pain (~1999) Skin cancer (~2012) Sleep apnea (~2014) Somatic dysfunction of lower extremity Stiffness of finger joint of right hand Thoracic region somatic dysfunction Tinnitus (~2009) Vasculogenic erectile dysfunction Surgical History (Reviewed @ 21:11 by Skinny Bishop DO) Anesthesia History of carpal tunnel surgery History of fusion of cervical spine (~1995) History of fusion of cervical spine History of heart artery stent (~2012) History of hernia repair History of laminectomy (~2003) History of lumbar fusion (~ 2000) Pyloric stenosis (~194) S/P TURP (status post transurethral resection of prostate) PT-OP-B Current Condition Start: 08/01/22 08:34 Freq: Status: Active Protocol: Document 08/17/22 10:37 SAK (Rec: 08/17/22 11:15 SAK [id number]) Current Condition History of Current Condition Onset Date 20+ years Current Complaints LBP, difficulty sleeping and walking History of Current Condition Right SI fusion 2000. Most recently hemilaminectomy and foraminiotomy 01/07/23 L4-S1[address] Surgery by Dr. Khalil. Immediately after surgery some decrease in pain but pain has been gradually increasing again, taking Methocarbomol and Tramadol with minimal effect. Not doing anything else for pain. Referral messed up took a long time to get in for PT. L34 is fused. Pain is constant, increases with bending forward to right and left (left greater than right), slight with backward. N/T ronal LE's. Walking sometimes drags right heel. Pain worst with laying down, best with standing. Prior Treatments and Tests As above PT-OP-C Subjective Start: 08/01/22 08:34 Freq: Status: Active Protocol: Document 09/15/22 08:21 SP (Rec: 09/15/22 09:05 SP [id number]) OP-PT Subjective Patient Comments Patient Comments Pt reports pain at R lower ribcage having to limit and cautious with lifting. Rib/ back pain on R still waking him up approx 4-5 hrs needs get up and move to releave. Pain starts walking back [place] but ok declines in neighborhood. PT-OP-G Mobility & Gait Start: 08/01/22 08:34 Freq: Status: Active Protocol: Document 08/02/22 08:08 SAK (Rec: 08/03/22 14:50 [facility] [id number]) OP Gait Assessment Gait Gait Assistance Required: Independent Assistive Devices Assistive Device None Gait Deviations General Gait Pattern Antalgic,Decreased Stride Length,Festinating,Flexed Trunk Factors Limiting Gait Function Factors Limiting Gait Function Pain PT-OP-H Neuro Start: 08/01/22 08:34 Freq: Status: Active Protocol: Document 08/02/22 08:08 SAK (Rec: 08/03/22 14:50 [facility] [id number]) Sensation Evaluation Gross Sensation Gross Sensation Left LE Impaired,Right LE Impaired Sensation Description Paresthesia,Pain Deep Tendon Reflex & Clonus Assessment Deep Tendon Reflex Bilateral Patellar Deep Tendon Reflex 1+ Diminished PT-OP-J Posture/Palpation/Skin Start: 08/01/22 08:34 Freq: Status: Active Protocol: Document 08/02/22 08:08 SAK (Rec: 08/02/22 09:02 [facility] [id number]) Posture Evaluation Position Standing Head/C-Spine Posture Forward Head T-Spine Posture Increased Kyphosis L-Spine Posture Flattened Shoulder Posture (L) Rounded,(R) Rounded Scapula Posture (L) Protracted,(R) Protracted Arm Posture (L) Internally Rotated,(R) Internally Rotated Pelvis Posture Posterior Tilted Hip Posture (L) Externally Rotated,(R) Externally Rotated Palpation Assessment Location lumbar Palpation Findings Soft Tissue Tightness,Muscle Guarding,Tenderness PT-OP-L Special Tests Start: 08/01/22 08:34 Freq: Status: Active Protocol: Document 08/02/22 08:08 [facility] (Rec: 08/03/22 14:50 [facility] [id number]) Special Tests Lumbar Spine Special Tests Manual Traction Test Results positive decrease in pain Darian Test Results positive for muscle tightness Straight Leg Raise Test Results positive for mod muscle tightness PT-OP-M Strength Start: 08/01/22 08:34 Freq: Status: Active Protocol: Document 08/02/22 08:08 [facility] (Rec: 08/03/22 14:50 [facility] [id number]) Trunk Strength Trunk Manual Muscle Testing Flexion 3+ Fair+ Extension 3+ Fair+ Core Stabilization poor Hip Strength Hip Manual Muscle Testing ronal Flexion (L2) 3+ Fair+ Extension (S1) 3 Fair Abduction 3 Fair External Rotation 3+ Fair+ Internal Rotation 3+ Fair+ Knee Strength Knee Manual Muscle Testing ronal Flexion (S2) 4 Good Extension (L3) 4 Good Ankle/Foot Strength Ankle and Foot Manual Muscle Testing Right Dorsiflexion (L4) 4- Good- Plantarflexion (S1) 4- Good- Left Dorsiflexion (L4) 4 Good Plantarflexion (S1) 4 Good PT-OP-Q Treatments Start: 08/01/22 08:34 Freq: Status: Active Protocol: Document 09/15/22 08:21 SP (Rec: 09/15/22 09:05 SP [id number]) Therapeutic Exercises Sidelying Exercises open book Side bilateral Equipment Used hand on head vs long arm Reps/Minutes 5 reps Comments cued head turn with arm scapular glide- painfree range Sitting Exercises TS rotation Sitting Exercise Name hands on head Manual Therapy Treatment Soft Tissue Mobilization TS, LS Body Location RL/S: paraspinal, ES T8-10 Mobilization Type Myofascial Release,Rolling, Sustained Pressure Intensity/Depth Moderate Body Position Sidelying Comments sensitive to pressure with breath Self-Care/Home Management Treatment Education Patient Education Body Mechanics,Home Exercise Program,Pain Management, Posture Other Education Ed posture, TS rotation with arm swing important for mobility. PT-OP-R Modalities Start: 08/01/22 08:34 Freq: Status: Active Protocol: Document 08/24/22 10:34 SAK (Rec: 08/24/22 11:17 SAK [id number]) Spinal Traction Traction Treatment Lumbar Method Static Patient Position Supine Force Applied (Pounds) 42 Duration of Treatment (Minutes) 10 Heating Pad Applied No Traction Treatment Comment [place] Home traction unit. After 10 min, straps undone, patient rested supine x 5 min before getting up PT-OP-T Assessment and Plan Start: 08/01/22 08:34 Freq: Status: Active Protocol: Document 09/15/22 08:21 SP (Rec: 09/15/22 09:05 SP [id number]) Physical Therapy Assessment Goals 3 Impairment interrupted sleep, hard to walk any distance Short Term Goal (STG) Patient to report ability to sleep for 4 hour stretches at a time without waking due to pain and able to walk for 15 min without inc in pain 08/13/22: progressing : uninterupted sleep about 3 hrs to stretch little then 4 hrs then have to get up. 09/03/22: GOAL MET got 6 hrs sleep before rib pain woke him up, wakes up stretches and apply heat and seems relieve it. Walked about 20 min incline/decline outside and noted no pain but sore next day. STG Duration 09/02/22 GOAL MET 09/03/22 Usp Goal (LTG) Patient to report ability sleep for 5-6 hour stretch at a time without waking due to pain and be able to walk for 30 min without inc in pain 09/14/22: 4-5 hrs sleep pain wakes him up at about 3 am. LTG Duration 10/02/22 slow progress 09/14/22 2 Impairment activity tolerance Impairment Oswestry score 28% Short Term Goal (STG) dec Oswestry to no greater than 20% as measure of improved activity tolerance STG Duration 09/02/22 Mangle Catcher Goal (LTG) Decrease Oswestry to no greater than 15% as measure of improved activity tolerance LTG Duration 10/02/22 1 Impairment pain Impairment LBP and ronal LE pain 6/10, spikes to 8/10 at times Usp Goal (LTG) Decrease pain to no greater than 4/10 with all usual activities LTG Duration 10/01/22 Assessment Summary Assessment Pt responded well to manual, improved TS/ LS mobility with ther ex review and added seated TS rotation no adverse affect with ed for post tx. Ed cued for carryover taller posturing and arm swing for spinal stabilization and mobility. Good response end tx . Physical Therapy Plan Frequency and Duration Frequency of Treatment 2x/Week Duration of treatment (weeks) 8 Plan of Care Start Date 08/02/22 Plan of Care End Date 10/02/22 Therapeutic Interventions Therapeutic Interventions Home Exercise Program,Manual Therapy,Neuromuscular Re- education,Patient/Caregiver Education,Self-Care/Home Management,Soft Tissue Mobilization,Taping, Therapeutic Activities, Therapeutic Exercises Modalities Cold Pack/Ice Massage,Electric Stimulation,Hot Packs, Traction- Mechanical, Ultrasound Next Visit Focus/Plan Next Note Type Treatment Note Next Visit Plan Assess manual, Core HEP and check mechanics with ADL mobility. POC: Continue manual, core strengtheing and stab, flexibility as tolerated Consider kinesiotape space correction technique L34 [place] Traction if needed.
--- NOTE | 2022-09-20 16:07 | PT.OTN ---
Current Diagnoses Spondylosis without myelopathy or radiculopathy, lumbar region (09/20/22) Abnormal posture (09/20/22) Weakness (09/20/22) Physical Therapy Treatment Note PT-OP-A Visit Information Start: 08/01/22 08:34 Freq: Status: Active Protocol: Document 09/20/22 14:00 SAK (Rec: 09/20/22 15:00 SAK [id number]) Out-Patient Physical Therapy Visit Information Visit Information Visit Type Treatment Note Visit Start Time 14:01 Visit Stop Time 15:00 Total Visit Minutes 59 Visit Number 12 Evaluation Information Evaluation Date 08/02/22 Precautions Precautions PMH: Actinic keratosis Ankle pain (~2001) Carpal tunnel syndrome (~2014) Cervical somatic dysfunction Chronic migraine without aura, with status migrainosus Chronic neck and back pain Chronic right shoulder pain Cranial somatic dysfunction Erectile dysfunction Fibromyalgia (~2014) Fractures (~1983) GERD (gastroesophageal reflux disease) (~2011) Headache (~1995) Hearing loss Hemicrania continua Herpes (~1995) History of urinary incontinence (~2019) Hypothyroidism (acquired) Lower urinary tract symptoms ( LUTS) Lumbar region somatic dysfunction Melanoma (~2009) Migraines (~1995) Pelvic somatic dysfunction Post-void dribbling Removal of staple Rib pain on right side Sacral region somatic dysfunction Scalp laceration Sciatic pain Segmental and somatic dysfunction of abdomen and other regions Segmental and somatic dysfunction of rib cage Shoulder pain (~1999) Skin cancer (~2012) Sleep apnea (~2014) Somatic dysfunction of lower extremity Stiffness of finger joint of right hand Thoracic region somatic dysfunction Tinnitus (~2009) Vasculogenic erectile dysfunction Surgical History (Reviewed @ 21:11 by Skinny Bishop DO) Anesthesia History of carpal tunnel surgery History of fusion of cervical spine (~1995) History of fusion of cervical spine History of heart artery stent (~2012) History of hernia repair History of laminectomy (~2003) History of lumbar fusion (~ 2000) Pyloric stenosis (~1942) S/P TURP (status post transurethral resection of prostate) PT-OP-B Current Condition Start: 08/01/22 08:34 Freq: Status: Active Protocol: Document 08/17/22 10:37 SAK (Rec: 08/17/22 11:15 SAK [id number]) Current Condition History of Current Condition Onset Date 20+ years Current Complaints LBP, difficulty sleeping and walking History of Current Condition Right SI fusion 2000. Most recently hemilaminectomy and foraminiotomy 01/07/23 L4-S[address] Surgery [address] Dr. Khalil. Immediately after surgery some decrease in pain but pain has been gradually increasing again, taking Methocarbomol and Tramadol with minimal effect. Not doing anything else for pain. Referral messed up took a long time to get in for PT. L34 is fused. Pain is constant, increases with bending forward to right and left (left greater than right), slight with backward. N/T ronal LE's. Walking sometimes drags right heel. Pain worst with laying down, best with standing. Prior Treatments and Tests As above PT-OP-C Subjective Start: 08/01/22 08:34 Freq: Status: Active Protocol: Document 09/20/22 14:00 [facility] (Rec: 09/20/22 15:00 [facility] [id number]) OP-PT Subjective Patient Comments Patient Comments Rib pain is pretty good, pain in low back and down to right heel, some left LE. Tried heat and sitting, helped a little. Tried to go for a walk but pain in back and down legs increased. PT-OP-G Mobility & Gait Start: 08/01/22 08:34 Freq: Status: Active Protocol: Document 08/02/22 08:08 [facility] (Rec: 08/03/22 14:50 [facility] [id number]) OP Gait Assessment Gait Gait Assistance Required: Independent Assistive Devices Assistive Device None Gait Deviations General Gait Pattern Antalgic,Decreased Stride Length,Festinating,Flexed Trunk Factors Limiting Gait Function Factors Limiting Gait Function Pain PT-OP-H Neuro Start: 08/01/22 08:34 Freq: Status: Active Protocol: Document 08/02/22 08:08 [facility] (Rec: 08/03/22 14:50 [facility] [id number]) Sensation Evaluation Gross Sensation Gross Sensation Left LE Impaired,Right LE Impaired Sensation Description Paresthesia,Pain Deep Tendon Reflex & Clonus Assessment Deep Tendon Reflex Bilateral Patellar Deep Tendon Reflex 1+ Diminished PT-OP-J Posture/Palpation/Skin Start: 08/01/22 08:34 Freq: Status: Active Protocol: Document 08/02/22 08:08 [facility] (Rec: 08/02/22 09:02 [facility] [id number]) Posture Evaluation Position Standing Head/C-Spine Posture Forward Head T-Spine Posture Increased Kyphosis L-Spine Posture Flattened Shoulder Posture (L) Rounded,(R) Rounded Scapula Posture (L) Protracted,(R) Protracted Arm Posture (L) Internally Rotated,(R) Internally Rotated Pelvis Posture Posterior Tilted Hip Posture (L) Externally Rotated,(R) Externally Rotated Palpation Assessment Location lumbar Palpation Findings Soft Tissue Tightness,Muscle Guarding,Tenderness PT-OP-L Special Tests Start: 08/01/22 08:34 Freq: Status: Active Protocol: Document 08/02/22 08:08 [facility] (Rec: 08/03/22 14:50 [facility] [id number]) Special Tests Lumbar Spine Special Tests Manual Traction Test Results positive decrease in pain Darian Test Results positive for muscle tightness Straight Leg Raise Test Results positive for mod muscle tightness PT-OP-M Strength Start: 08/01/22 08:34 Freq: Status: Active Protocol: Document 08/02/22 08:08 [facility] (Rec: 08/03/22 14:50 [facility] [id number]) Trunk Strength Trunk Manual Muscle Testing Flexion 3+ Fair+ Extension 3+ Fair+ Core Stabilization poor Hip Strength Hip Manual Muscle Testing ronal Flexion (L2) 3+ Fair+ Extension (S1) 3 Fair Abduction 3 Fair External Rotation 3+ Fair+ Internal Rotation 3+ Fair+ Knee Strength Knee Manual Muscle Testing ronal Flexion (S2) 4 Good Extension (L3) 4 Good Ankle/Foot Strength Ankle and Foot Manual Muscle Testing Right Dorsiflexion (L4) 4- Good- Plantarflexion (S1) 4- Good- Left Dorsiflexion (L4) 4 Good Plantarflexion (S1) 4 Good PT-OP-Q Treatments Start: 08/01/22 08:34 Freq: Status: Active Protocol: Document 09/20/22 14:00 [facility] (Rec: 09/20/22 15:00 [facility] [id number]) Therapeutic Exercises Supine Exercises DKTC Reps/Minutes 2x30 diaphramatic breath Supine Exercise Name also lateral and posterior thoracic breathing Reps/Minutes 5 min Comments verbal and tactile cues SKTC Supine Exercise Name self HEP w/ DF/ PF Side bilateral Reps/Minutes 2x5 AP reps Comments good response piriformis stretch Side right HS stretch Supine Exercise Name HEP reviewed w/ AP: sciatic nerve glide Side left Equipment Used towel back thigh better form Reps/Minutes 30 each LE, more tight R Comments good feedback ROM, no worsening back nor tingling and able to move Prone Exercises prone press up Reps/Minutes 3x30 Comments LBP better, no change in LE pain Manual Therapy Treatment Soft Tissue Mobilization T10 Body Location with deep breathing Mobilization Type Sustained Pressure Intensity/Depth Moderate Body Position Supine Comments inf T10 rib ant piriformis Body Location R Mobilization Type Sustained Pressure Intensity/Depth Moderate Body Position Sidelying IT band Body Location R Mobilization Type Myofascial Release,Strumming Intensity/Depth Moderate Body Position Sidelying TS, LS Body Location RL/S: paraspinal, ES T8-10 Mobilization Type Myofascial Release,Rolling, Sustained Pressure Intensity/Depth Moderate Body Position Sidelying Comments sensitive to pressure with breath Manual Traction Lumbar Details also hooklying Body Position 90/90 Reps/Duration 10 min Comments 30 sec holds, 10 sec rest Taping L4-L5 right Body Location L3-5 Treatment Focus pain reduction, stair space correction technique Type of Tape Kinesio Tape Skin Inspection intact Comments 3 I strips, 75% stretch Self-Care/Home Management Treatment Education Patient Education Body Mechanics,Home Exercise Program,Pain Management, Posture Other Education review HEP required. Use of mirror for postural self- assessment with noted shift of pelvis left today, pain with correction. PT-OP-R Modalities Start: 08/01/22 08:34 Freq: Status: Active Protocol: Document 09/20/22 14:00 [facility] (Rec: 09/20/22 16:07 [facility] [id number]) Hot Pack/Cold Pack Treatment Hot Pack Location right IT band and piriformis Patient Position Sidelying Treatment Duration (minutes) 15 PT-OP-T Assessment and Plan Start: 08/01/22 08:34 Freq: Status: Active Protocol: Document 09/20/22 14:00 [facility] (Rec: 09/20/22 15:00 [facility] [id number]) Physical Therapy Assessment Impairments Impairments Activity Tolerance,Pain, Posture,Strength Goals 3 Impairment interrupted sleep, hard to walk any distance Short Term Goal (STG) Patient to report ability to sleep for 4 hour stretches at a time without waking due to pain and able to walk for 15 min without inc in pain 08/13/22: progressing : uninterupted sleep about 3 hrs to stretch little then 4 hrs then have to get up. 09/03/22: GOAL MET got 6 hrs sleep before rib pain woke him up, wakes up stretches and apply heat and seems relieve it. Walked about 20 min incline/decline outside and noted no pain but sore next day. STG Duration 09/02/22 GOAL MET 09/03/22 Energy Project Engineer Goal (LTG) Patient to report ability sleep for 5-6 hour stretch at a time without waking due to pain and be able to walk for 30 min without inc in pain 09/14/22: 4-5 hrs sleep pain wakes him up at about 3 am. LTG Duration 10/02/22 slow progress 09/14/22 2 Impairment activity tolerance Impairment Oswestry score 28% Short Term Goal (STG) dec Oswestry to no greater than 20% as measure of improved activity tolerance STG Duration 09/02/22 Energy Project Engineer Goal (LTG) Decrease Oswestry to no greater than 15% as measure of improved activity tolerance 09/20/22: has previously noted improvement but worse today LTG Duration 10/02/22 1 Impairment pain Impairment LBP and ronal LE pain 6/10, spikes to 8/10 at times Longterm Goal (LTG) Decrease pain to no greater than 4/10 with all usual activities 09/20/22: has noted improvement in the past but today more sore, reason uncertain LTG Duration 10/01/22 Assessment Summary Assessment Patient has been making good progress though today comes to PT with worsened symtpms especially in low back and down legs right greater than left. Prone press up dec LB symptoms but no change in leg symptoms, manual traction inc rib symptoms but dec low back and leg symptoms a small amount. Palpation at L45 right inc right LE and LB symptoms. Palpation and manual right piriformis and IT band inc some symptoms in right leg. LE flexibility reviewed, sciatic nerv glide performed, L3-5 region right taped with kinesiotape, and moist heat provided to IT band and piriformis to end treatment; advising possibly alternating ice and heat at home, rest in 90/90 position for positional relief. Patient demonstrated good understanding of all. Physical Therapy Plan Frequency and Duration Frequency of Treatment 2x/Week Duration of treatment (weeks) 8 Plan of Care Start Date 08/02/22 Plan of Care End Date 10/02/22 Therapeutic Interventions Therapeutic Interventions Home Exercise Program,Manual Therapy,Neuromuscular Re- education,Patient/Caregiver Education,Self-Care/Home Management,Soft Tissue Mobilization,Taping, Therapeutic Activities, Therapeutic Exercises Modalities Cold Pack/Ice Massage,Electric Stimulation,Hot Packs, Traction- Mechanical, Ultrasound Next Visit Focus/Plan Next Note Type Treatment Note Next Visit Plan Postural correction ex, evaluate response to kinesiotape, consider further manual traction and manual release inf T10 ant. DTM lumbar paraspinals
--- NOTE | 2022-09-23 09:45 | PT.OTN ---
Current Diagnoses Spondylosis without myelopathy or radiculopathy, lumbar region (09/23/22) Abnormal posture (09/23/22) Weakness (09/23/22) Physical Therapy Treatment Note PT-OP-A Visit Information Start: 08/01/22 08:34 Freq: Status: Active Protocol: Document 09/23/22 09:05 SP (Rec: 09/23/22 09:51 SP [id number]) Out-Patient Physical Therapy Visit Information Visit Information Visit Type Treatment Note Visit Start Time 09:05 Visit Stop Time 09:45 Total Visit Minutes 40 Visit Number 13 Number of INSTRUMENT REPAIR TECHNICIAN Visits 1 Evaluation Information Evaluation Date 08/02/22 Precautions Precautions PMH: Actinic keratosis Ankle pain (~2001) Carpal tunnel syndrome (~2014) Cervical somatic dysfunction Chronic migraine without aura, with status migrainosus Chronic neck and back pain Chronic right shoulder pain Cranial somatic dysfunction Erectile dysfunction Fibromyalgia (~2014) Fractures (~1983) GERD (gastroesophageal reflux disease) (~2011) Headache (~1995) Hearing loss Hemicrania continua Herpes (~1995) History of urinary incontinence (~2019) Hypothyroidism (acquired) Lower urinary tract symptoms ( LUTS) Lumbar region somatic dysfunction Melanoma (~2009) Migraines (~1995) Pelvic somatic dysfunction Post-void dribbling Removal of staple Rib pain on right side Sacral region somatic dysfunction Scalp laceration Sciatic pain Segmental and somatic dysfunction of abdomen and other regions Segmental and somatic dysfunction of rib cage Shoulder pain (~1999) Skin cancer (~2012) Sleep apnea (~2014) Somatic dysfunction of lower extremity Stiffness of finger joint of right hand Thoracic region somatic dysfunction Tinnitus (~2009) Vasculogenic erectile dysfunction Surgical History (Reviewed @ 21:11 by Skinny Bishop DO) Anesthesia History of carpal tunnel surgery History of fusion of cervical spine (~1995) History of fusion of cervical spine History of heart artery stent (~2012) History of hernia repair History of laminectomy (~2003) History of lumbar fusion (~ 2000) Pyloric stenosis (~194) S/P TURP (status post transurethral resection of prostate) PT-OP-B Current Condition Start: 08/01/22 08:34 Freq: Status: Active Protocol: Document 08/17/22 10:37 SAK (Rec: 08/17/22 11:15 SAK [id number]) Current Condition History of Current Condition Onset Date 20+ years Current Complaints LBP, difficulty sleeping and walking History of Current Condition Right SI fusion 2000. Most recently hemilaminectomy and foraminiotomy 01/07/23 L4-S[address] Surgery [address] Dr. Khalil. Immediately after surgery some decrease in pain but pain has been gradually increasing again, taking Methocarbomol and Tramadol with minimal effect. Not doing anything else for pain. Referral messed up took a long time to get in for PT. L34 is fused. Pain is constant, increases with bending forward to right and left (left greater than right), slight with backward. N/T ronal LE's. Walking sometimes drags right heel. Pain worst with laying down, best with standing. Prior Treatments and Tests As above PT-OP-C Subjective Start: 08/01/22 08:34 Freq: Status: Active Protocol: Document 09/23/22 09:05 SP (Rec: 09/23/22 09:51 SP [id number]) OP-PT Subjective Patient Comments Patient Comments Still waking up with rib pain, not able to walk significant distance. Ktaping did help a bit. PT-OP-G Mobility & Gait Start: 08/01/22 08:34 Freq: Status: Active Protocol: Document 08/02/22 08:08 SAK (Rec: 08/03/22 14:50 [facility] [id number]) OP Gait Assessment Gait Gait Assistance Required: Independent Assistive Devices Assistive Device None Gait Deviations General Gait Pattern Antalgic,Decreased Stride Length,Festinating,Flexed Trunk Factors Limiting Gait Function Factors Limiting Gait Function Pain PT-OP-H Neuro Start: 08/01/22 08:34 Freq: Status: Active Protocol: Document 08/02/22 08:08 SAK (Rec: 08/03/22 14:50 [facility] [id number]) Sensation Evaluation Gross Sensation Gross Sensation Left LE Impaired,Right LE Impaired Sensation Description Paresthesia,Pain Deep Tendon Reflex & Clonus Assessment Deep Tendon Reflex Bilateral Patellar Deep Tendon Reflex 1+ Diminished PT-OP-J Posture/Palpation/Skin Start: 08/01/22 08:34 Freq: Status: Active Protocol: Document 08/02/22 08:08 SAK (Rec: 08/02/22 09:02 SAK [id number]) Posture Evaluation Position Standing Head/C-Spine Posture Forward Head T-Spine Posture Increased Kyphosis L-Spine Posture Flattened Shoulder Posture (L) Rounded,(R) Rounded Scapula Posture (L) Protracted,(R) Protracted Arm Posture (L) Internally Rotated,(R) Internally Rotated Pelvis Posture Posterior Tilted Hip Posture (L) Externally Rotated,(R) Externally Rotated Palpation Assessment Location lumbar Palpation Findings Soft Tissue Tightness,Muscle Guarding,Tenderness PT-OP-L Special Tests Start: 08/01/22 08:34 Freq: Status: Active Protocol: Document 08/02/22 08:08 SAK (Rec: 08/03/22 14:50 SAK [id number]) Special Tests Lumbar Spine Special Tests Manual Traction Test Results positive decrease in pain Darian Test Results positive for muscle tightness Straight Leg Raise Test Results positive for mod muscle tightness PT-OP-M Strength Start: 08/01/22 08:34 Freq: Status: Active Protocol: Document 08/02/22 08:08 SAK (Rec: 08/03/22 14:50 SAK [id number]) Trunk Strength Trunk Manual Muscle Testing Flexion 3+ Fair+ Extension 3+ Fair+ Core Stabilization poor Hip Strength Hip Manual Muscle Testing ronal Flexion (L2) 3+ Fair+ Extension (S1) 3 Fair Abduction 3 Fair External Rotation 3+ Fair+ Internal Rotation 3+ Fair+ Knee Strength Knee Manual Muscle Testing ronal Flexion (S2) 4 Good Extension (L3) 4 Good Ankle/Foot Strength Ankle and Foot Manual Muscle Testing Right Dorsiflexion (L4) 4- Good- Plantarflexion (S1) 4- Good- Left Dorsiflexion (L4) 4 Good Plantarflexion (S1) 4 Good PT-OP-Q Treatments Start: 08/01/22 08:34 Freq: Status: Active Protocol: Document 09/23/22 09:05 SP (Rec: 09/23/22 09:51 SP [id number]) Gym Equipment Therapeutic Ball seated Exercise Details pelvic tilts: f/b/lateral, SB, rotation (hands ball/lap, behind head) Ball Size/Color Green Body Position Sitting Comments improve LS and TS mobility, and improved breath less stiffness Therapeutic Exercises Supine Exercises diaphramatic breath Supine Exercise Name also lateral and posterior thoracic breathing Reps/Minutes 5 min Comments verbal and tactile cues Prone Exercises prone press up Prone Exercise Name elbows>modified hands with breath Reps/Minutes 3x30 Comments LBP better Sidelying Exercises open book Side bilateral Equipment Used hand on head vs long arm Reps/Minutes 5 reps Comments cued head turn with arm scapular glide- painfree range Manual Therapy Treatment Soft Tissue Mobilization T10 Body Location with deep breathing Mobilization Type Sustained Pressure Intensity/Depth Moderate Body Position Supine Comments prone, supine, side: inf T10 rib w/ breath, FM HABD, FF Manual Traction Lumbar Details also hooklying Body Position hook Reps/Duration 5 min Comments w/ FM pelvic tilt- best results with Posterior and lateral. Self-Care/Home Management Treatment Education Patient Education Body Mechanics,Home Exercise Program,Pain Management, Posture Other Education Ed and instruction gait after tball ex, cued arms swing and scap ROM. Improved mobility and TS/ scap ROM rotation. PT-OP-R Modalities Start: 08/01/22 08:34 Freq: Status: Active Protocol: Document 09/20/22 14:00 SAK (Rec: 09/20/22 16:07 SAK [id number]) Hot Pack/Cold Pack Treatment Hot Pack Location right IT band and piriformis Patient Position Sidelying Treatment Duration (minutes) 15 PT-OP-T Assessment and Plan Start: 08/01/22 08:34 Freq: Status: Active Protocol: Document 09/23/22 09:05 SP (Rec: 09/23/22 09:51 SP [id number]) Physical Therapy Assessment Goals 3 Impairment interrupted sleep, hard to walk any distance Short Term Goal (STG) Patient to report ability to sleep for 4 hour stretches at a time without waking due to pain and able to walk for 15 min without inc in pain 08/13/22: progressing : uninterupted sleep about 3 hrs to stretch little then 4 hrs then have to get up. 09/03/22: GOAL MET got 6 hrs sleep before rib pain woke him up, wakes up stretches and apply heat and seems relieve it. Walked about 20 min incline/decline outside and noted no pain but sore next day. STG Duration 09/02/22 GOAL MET 09/03/22 Labor Relations Teacher Goal (LTG) Patient to report ability sleep for 5-6 hour stretch at a time without waking due to pain and be able to walk for 30 min without inc in pain 09/14/22: 4-5 hrs sleep pain wakes him up at about 3 am. LTG Duration 10/02/22 slow progress 09/14/22 2 Impairment activity tolerance Impairment Oswestry score 28% Short Term Goal (STG) dec Oswestry to no greater than 20% as measure of improved activity tolerance STG Duration 09/02/22 Labor Relations Teacher Goal (LTG) Decrease Oswestry to no greater than 15% as measure of improved activity tolerance 09/20/22: has previously noted improvement but worse today LTG Duration 10/02/22 1 Impairment pain Impairment LBP and ronal LE pain 6/10, spikes to 8/10 at times [facility] Goal (LTG) Decrease pain to no greater than 4/10 with all usual activities 09/20/22: has noted improvement in the past but today more sore, reason uncertain LTG Duration 10/01/22 Assessment Summary Assessment Pt improve TS, LS mobility post manual, gentle spinal/ ribcage with breath mobililty and increased arm swing, scapular glides short distance gait then leaving. Cues during seated tball for postural corrections, at times slouches and report LB irritation, improves post cues . More segmental mobility and reported decrease stiffness and pain in R lateral ribcage. Pt reported will keep Ktaping on for now and knows remove. Physical Therapy Plan Frequency and Duration Frequency of Treatment 2x/Week Duration of treatment (weeks) 8 Plan of Care Start Date 08/02/22 Plan of Care End Date 10/02/22 Therapeutic Interventions Therapeutic Interventions Home Exercise Program,Manual Therapy,Neuromuscular Re- education,Patient/Caregiver Education,Self-Care/Home Management,Soft Tissue Mobilization,Taping, Therapeutic Activities, Therapeutic Exercises Modalities Cold Pack/Ice Massage,Electric Stimulation,Hot Packs, Traction- Mechanical, Ultrasound Next Visit Focus/Plan Next Note Type Treatment Note Next Visit Plan Assess manual and Tball AROM ther ex, ed continue at home. POC: Postural correction ex, evaluate response to kinesiotape, consider further manual traction and manual release inf T10 ant. DTM lumbar paraspinals
--- NOTE | 2022-09-27 16:22 | PT.OTRE ---
Current Diagnoses Spondylosis without myelopathy or radiculopathy, lumbar region (09/27/22) Abnormal posture (09/27/22) Weakness (09/27/22) Past Medical History (Last Reviewed 05/31/22 @ 12:14 by Paul Solano MD) Actinic keratosis Ankle pain (~2001) Carpal tunnel syndrome (~2014) Cervical somatic dysfunction Chronic migraine without aura, with status migrainosus Chronic neck and back pain Chronic right shoulder pain Cough Cranial somatic dysfunction Erectile dysfunction Fever Fibromyalgia (~2014) Fractures (~1983) GERD (gastroesophageal reflux disease) (~2011) Headache (~1995) Hearing loss Hemicrania continua Herpes (~1995) History of urinary incontinence (~2019) Hypothyroidism (acquired) Lower urinary tract symptoms (LUTS) Lumbar region somatic dysfunction Melanoma (~2009) Migraines (~1995) Pelvic somatic dysfunction Post-void dribbling Removal of staple Rib pain on right side Sacral region somatic dysfunction Scalp laceration Sciatic pain Segmental and somatic dysfunction of abdomen and other regions Segmental and somatic dysfunction of rib cage Shoulder pain (~1999) Skin cancer (~2012) Sleep apnea (~2014) Somatic dysfunction of lower extremity Stiffness of finger joint of right hand Thoracic region somatic dysfunction Tinnitus (~2009) Vasculogenic erectile dysfunction Surgical History (Last Reviewed 05/31/22 @ 12:14 by Paul Solano MD) Anesthesia History of carpal tunnel surgery History of fusion of cervical spine (~1995) History of fusion of cervical spine History of heart artery stent (~2012) History of hernia repair History of laminectomy (~2003) History of lumbar fusion (~2000) Pyloric stenosis (~194) S/P TURP (status post transurethral resection of prostate) Visit Care Team Role Provider Type David Dewitt DO Family Provider Physician Primary Care Provider Specialty: Family Practice Address: [address] [place] [address], [id number] Email: Jose Carlos Khalil Attending Provider Non-Staff Referring Provider Specialty: Neurosurgery Address: [address] [place] [address], [id number] Email: Physical Therapy Re-Evaluation PT-OP-A Visit Information Start: 08/01/22 08:34 Freq: Status: Active Protocol: Document 09/27/22 13:16 SAK (Rec: 09/27/22 13:22 SAK [id number]) Out-Patient Physical Therapy Visit Information Visit Information Visit Type Treatment Note Visit Start Time 13:16 Visit Stop Time 14:10 Total Visit Minutes 54 Visit Number 14 Evaluation Information Evaluation Date 08/02/22 Precautions Precautions PMH: Actinic keratosis Ankle pain (~2001) Carpal tunnel syndrome (~2014) Cervical somatic dysfunction Chronic migraine without aura, with status migrainosus Chronic neck and back pain Chronic right shoulder pain Cranial somatic dysfunction Erectile dysfunction Fibromyalgia (~2014) Fractures (~1983) GERD (gastroesophageal reflux disease) (~2011) Headache (~1995) Hearing loss Hemicrania continua Herpes (~1995) History of urinary incontinence (~2019) Hypothyroidism (acquired) Lower urinary tract symptoms ( LUTS) Lumbar region somatic dysfunction Melanoma (~2009) Migraines (~1995) Pelvic somatic dysfunction Post-void dribbling Removal of staple Rib pain on right side Sacral region somatic dysfunction Scalp laceration Sciatic pain Segmental and somatic dysfunction of abdomen and other regions Segmental and somatic dysfunction of rib cage Shoulder pain (~1999) Skin cancer (~2012) Sleep apnea (~2014) Somatic dysfunction of lower extremity Stiffness of finger joint of right hand Thoracic region somatic dysfunction Tinnitus (~2009) Vasculogenic erectile dysfunction Surgical History (Reviewed @ 21:11 by Skinny Bishop DO) Anesthesia History of carpal tunnel surgery History of fusion of cervical spine (~1995) History of fusion of cervical spine History of heart artery stent (~2012) History of hernia repair History of laminectomy (~2003) History of lumbar fusion (~ 2000) Pyloric stenosis (~1943) S/P TURP (status post transurethral resection of prostate) PT-OP-B Current Condition Start: 08/01/22 08:34 Freq: Status: Active Protocol: Document 08/17/22 10:37 SAK (Rec: 08/17/22 11:15 SAK [id number]) Current Condition History of Current Condition Onset Date 20+ years Current Complaints LBP, difficulty sleeping and walking History of Current Condition Right SI fusion 2000. Most recently hemilaminectomy and foraminiotomy 01/07/23 L4-S1. Surgery by Dr. Khalil. Immediately after surgery some decrease in pain but pain has been gradually increasing again, taking Methocarbomol and Tramadol with minimal effect. Not doing anything else for pain. Referral messed up took a long time to get in for PT. L34 is fused. Pain is constant, increases with bending forward to right and left (left greater than right), slight with backward. N/T ronal LE's. Walking sometimes drags right heel. Pain worst with laying down, best with standing. Prior Treatments and Tests As above PT-OP-C Subjective Start: 08/01/22 08:34 Freq: Status: Active Protocol: Document 09/27/22 13:16 SAK (Rec: 09/27/22 13:22 [facility] [id number]) OP-PT Subjective Patient Comments Patient Comments Today pain more center back, not rib pain as much but back distracting from the rib pain. Back pain 8/10 with radiation down to right heel. Very hard to get out of bed, seems to loosen up once gets up and moves around. Yesterday had to take Methocarbomal and Tramedol and that helped some. Not sure anything helping, kinesiotape a little, requests taping more central. PT-OP-G Mobility & Gait Start: 08/01/22 08:34 Freq: Status: Active Protocol: Document 08/02/22 08:08 [facility] (Rec: 08/03/22 14:50 [facility] [id number]) OP Gait Assessment Gait Gait Assistance Required: Independent Assistive Devices Assistive Device None Gait Deviations General Gait Pattern Antalgic,Decreased Stride Length,Festinating,Flexed Trunk Factors Limiting Gait Function Factors Limiting Gait Function Pain PT-OP-H Neuro Start: 08/01/22 08:34 Freq: Status: Active Protocol: Document 08/02/22 08:08 [facility] (Rec: 08/03/22 14:50 [facility] [id number]) Sensation Evaluation Gross Sensation Gross Sensation Left LE Impaired,Right LE Impaired Sensation Description Paresthesia,Pain Deep Tendon Reflex & Clonus Assessment Deep Tendon Reflex Bilateral Patellar Deep Tendon Reflex 1+ Diminished PT-OP-J Posture/Palpation/Skin Start: 08/01/22 08:34 Freq: Status: Active Protocol: Document 08/02/22 08:08 SAK (Rec: 08/02/22 09:02 [facility] [id number]) Posture Evaluation Position Standing Head/C-Spine Posture Forward Head T-Spine Posture Increased Kyphosis L-Spine Posture Flattened Shoulder Posture (L) Rounded,(R) Rounded Scapula Posture (L) Protracted,(R) Protracted Arm Posture (L) Internally Rotated,(R) Internally Rotated Pelvis Posture Posterior Tilted Hip Posture (L) Externally Rotated,(R) Externally Rotated Palpation Assessment Location lumbar Palpation Findings Soft Tissue Tightness,Muscle Guarding,Tenderness PT-OP-L Special Tests Start: 08/01/22 08:34 Freq: Status: Active Protocol: Document 08/02/22 08:08 [facility] (Rec: 08/03/22 14:50 [facility] [id number]) Special Tests Lumbar Spine Special Tests Manual Traction Test Results positive decrease in pain Darian Test Results positive for muscle tightness Straight Leg Raise Test Results positive for mod muscle tightness PT-OP-M Strength Start: 08/01/22 08:34 Freq: Status: Active Protocol: Document 08/02/22 08:08 [facility] (Rec: 08/03/22 14:50 [facility] [id number]) Trunk Strength Trunk Manual Muscle Testing Flexion 3+ Fair+ Extension 3+ Fair+ Core Stabilization poor Hip Strength Hip Manual Muscle Testing ronal Flexion (L2) 3+ Fair+ Extension (S1) 3 Fair Abduction 3 Fair External Rotation 3+ Fair+ Internal Rotation 3+ Fair+ Knee Strength Knee Manual Muscle Testing ronal Flexion (S2) 4 Good Extension (L3) 4 Good Ankle/Foot Strength Ankle and Foot Manual Muscle Testing Right Dorsiflexion (L4) 4- Good- Plantarflexion (S1) 4- Good- Left Dorsiflexion (L4) 4 Good Plantarflexion (S1) 4 Good PT-OP-Q Treatments Start: 08/01/22 08:34 Freq: Status: Active Protocol: Document 09/27/22 13:16 [facility] (Rec: 09/27/22 13:27 [facility] [id number]) Cardio Equipment Recumbent Stepper (Sci-Fit) Duration (Minutes) 10 Resistance 3 Seat Position 11>10- 1.66 miles Other 75 RPMs, R hip fine, cued no stress neck recruitment Therapeutic Exercises Supine Exercises hip abd swapna Equipment Used strap Reps/Minutes 10x Transverse abdominis Reps/Minutes 10x5 Comments cues for TrA draw in gentle- painfree ball squeeze Equipment Used ball Reps/Minutes 10x Comments cues for core activation, submax contraction Prone Exercises prone press up Prone Exercise Name elbows>modified hands with breath Reps/Minutes 3x30 Standing Exercises gluteal set Reps/Minutes 5x TA Reps/Minutes 3x wall posture Standing Exercise Name added to HEP Equipment Used discussed ease not forceful Reps/Minutes 5 SH x5- Comments chin lucy neutral, LS toward wall, relax shld Manual Therapy Treatment Soft Tissue Mobilization scar tissue Body Location thoracolumbar spine Mobilization Type Instrument Assisted,Myofascial Release Body Position prone, pillow under hips Comments small suction TS, LS Mobilization Type Strumming Intensity/Depth Moderate Body Position Prone Comments reported inc pain down right LE Taping thoracolumbar spine Comments central spine S2-T12 I strip vertical, paper off tension L5-S1 horizontal 75% stretch I strip, T12 horizontal 75% stretch I strip Self-Care/Home Management Treatment Education Patient Education Body Mechanics,Home Exercise Program,Pain Management, Posture Other Education discussion regions immed sup and inf to scar most painful PT-OP-R Modalities Start: 08/01/22 08:34 Freq: Status: Active Protocol: Document 09/20/22 14:00 [facility] (Rec: 09/20/22 16:07 [facility] [id number]) Hot Pack/Cold Pack Treatment Hot Pack Location right IT band and piriformis Patient Position Sidelying Treatment Duration (minutes) 15 PT-OP-T Assessment and Plan Start: 08/01/22 08:34 Freq: Status: Active Protocol: Document 09/27/22 13:16 [facility] (Rec: 09/27/22 13:22 [facility] [id number]) Physical Therapy Assessment Goals 3 Impairment interrupted sleep, hard to walk any distance Short Term Goal (STG) Patient to report ability to sleep for 4 hour stretches at a time without waking due to pain and able to walk for 15 min without inc in pain 08/13/22: progressing : uninterupted sleep about 3 hrs to stretch little then 4 hrs then have to get up. 09/03/22: GOAL MET got 6 hrs sleep before rib pain woke him up, wakes up stretches and apply heat and seems relieve it. Walked about 20 min incline/decline outside and noted no pain but sore next day. 09/27/22: noting inc pain and difficulty walking and sleeping recently STG Duration 10/28/22 Shank Turner Goal (LTG) Patient to report ability sleep for 5-6 hour stretch at a time without waking due to pain and be able to walk for 30 min without inc in pain 09/14/22: 4-5 hrs sleep pain wakes him up at about 3 am. 09/27/22: dec ability to sleep or walk past 1-2 weeks, no known reason LTG Duration 11/27/22 2 Impairment activity tolerance Impairment Oswestry score 28% Short Term Goal (STG) dec Oswestry to no greater than 20% as measure of improved activity tolerance 09/27/22: goal not met due to recent exacerbation, unknown cause STG Duration 10/26/22 Shank Turner Goal (LTG) Decrease Oswestry to no greater than 15% as measure of improved activity tolerance LTG Duration 11/11/22 1 Impairment pain Impairment LBP and ronal LE pain 6/10, spikes to 8/10 at times Shank Turner Goal (LTG) Decrease pain to no greater than 4/10 with all usual activities 09/20/22: has noted improvement in the past but today more sore, reason uncertain 09/27/22: reported pain 8/10 today LTG Duration 11/11/22 Assessment Summary Assessment Today patient reports pain 8/ 10, feels weak down right leg to heel. Worsened symptoms in back and leg past couple weeks unknown reason. Symptoms highly irritable especially just sup and inf to surgical scar. Emphasized need for spinal stabilization ex, encouraged patient to return to physician for follow up due to persistent and recent worsening pain. Physical Therapy Plan Frequency and Duration Frequency of Treatment 2x/Week Duration of treatment (weeks) 8 Plan of Care Start Date 09/27/22 Plan of Care End Date 11/27/22 Therapeutic Interventions Therapeutic Interventions Home Exercise Program,Manual Therapy,Neuromuscular Re- education,Patient/Caregiver Education,Self-Care/Home Management,Soft Tissue Mobilization,Taping, Therapeutic Activities, Therapeutic Exercises Modalities Cold Pack/Ice Massage,Electric Stimulation,Hot Packs, Traction- Mechanical, Ultrasound Next Visit Focus/Plan Next Note Type Treatment Note Next Visit Plan Assess response to today's session with scar mobilization and modified kinesiotape technique. Core stabilization ex.
--- NOTE | 2022-09-27 16:22 | PT.OPPOC ---
Physical, Occupational & Speech Therapy At [facility] Current Diagnoses Spondylosis without myelopathy or radiculopathy, lumbar region (09/27/22) Abnormal posture (09/27/22) Weakness (09/27/22) Visit Care Team Role Provider Type David Dewitt DO Family Provider Physician Primary Care Provider Specialty: Family Practice Address: [address] [place] [address], [phone] Email: Jose Carlos Khalil Attending Provider Non-Staff Referring Provider Specialty: Neurosurgery Address: [address] [place] [address], [phone] Email: Plan Of Care PT-OP-T Assessment and Plan Start: 08/01/22 08:34 Freq: Status: Active Protocol: Document 09/27/22 13:16 SAK (Rec: 09/27/22 13:22 SAK [id number]) Physical Therapy Assessment Goals 3 Impairment interrupted sleep, hard to walk any distance Short Term Goal (STG) Patient to report ability to sleep for 4 hour stretches at a time without waking due to pain and able to walk for 15 min without inc in pain 08/13/22: progressing : uninterupted sleep about 3 hrs to stretch little then 4 hrs then have to get up. 09/03/22: GOAL MET got 6 hrs sleep before rib pain woke him up, wakes up stretches and apply heat and seems relieve it. Walked about 20 min incline/decline outside and noted no pain but sore next day. 09/27/22: noting inc pain and difficulty walking and sleeping recently STG Duration 10/28/22 Alf Goal (LTG) Patient to report ability sleep for 5-6 hour stretch at a time without waking due to pain and be able to walk for 30 min without inc in pain 09/14/22: 4-5 hrs sleep pain wakes him up at about 3 am. 09/27/22: dec ability to sleep or walk past 1-2 weeks, no known reason LTG Duration 11/27/22 2 Impairment activity tolerance Impairment Oswestry score 28% Short Term Goal (STG) dec Oswestry to no greater than 20% as measure of improved activity tolerance 09/27/22: goal not met due to recent exacerbation, unknown cause STG Duration 10/26/22 [employer] Goal (LTG) Decrease Oswestry to no greater than 15% as measure of improved activity tolerance LTG Duration 11/11/22 1 Impairment pain Impairment LBP and ronal LE pain 6/10, spikes to 8/10 at times [employer] Goal (LTG) Decrease pain to no greater than 4/10 with all usual activities 09/20/22: has noted improvement in the past but today more sore, reason uncertain 09/27/22: reported pain 8/10 today LTG Duration 11/11/22 Assessment Summary Assessment Today patient reports pain 8/ 10, feels weak down right leg to heel. Worsened symptoms in back and leg past couple weeks unknown reason. Symptoms highly irritable especially just sup and inf to surgical scar. Emphasized need for spinal stabilization ex, encouraged patient to return to physician for follow up due to persistent and recent worsening pain. Physical Therapy Plan Frequency and Duration Frequency of Treatment 2x/Week Duration of treatment (weeks) 8 Plan of Care Start Date 09/27/22 Plan of Care End Date 11/27/22 Therapeutic Interventions Therapeutic Interventions Home Exercise Program,Manual Therapy,Neuromuscular Re- education,Patient/Caregiver Education,Self-Care/Home Management,Soft Tissue Mobilization,Taping, Therapeutic Activities, Therapeutic Exercises Modalities Cold Pack/Ice Massage,Electric Stimulation,Hot Packs, Traction- Mechanical, Ultrasound Next Visit Focus/Plan Next Note Type Treatment Note Next Visit Plan Assess response to today's session with scar mobilization and modified kinesiotape technique. Core stabilization ex. Plan of Care Dates Plan of Care Start Date 09/27/22 Plan of Care End Date 11/27/22 Electronically Signed by: Juli Cotto, PT 09/27/22 [id number] If you are in agreement with this Plan of Care, please return a signed and dated copy. I have reviewed this Plan of Care and certify that the skilled therapy services above are required to meet the patient?s needs. Physician Signature Date Printed Name and Credentials Clinical Instructor Signature Printed Name and Credentials
--- NOTE | 2022-09-30 17:06 | PT.OTN ---
Current Diagnoses Spondylosis without myelopathy or radiculopathy, lumbar region (09/30/22) Abnormal posture (09/30/22) Weakness (09/30/22) Physical Therapy Treatment Note PT-OP-A Visit Information Start: 08/01/22 08:34 Freq: Status: Active Protocol: Document 09/30/22 12:53 SW (Rec: 09/30/22 13:46 SW [id number]) Out-Patient Physical Therapy Visit Information Visit Information Visit Type Treatment Note Visit Start Time 13:00 Visit Stop Time 13:43 Total Visit Minutes 43 Visit Number 15 Number of QUALITY ASSURANCE COACH Visits 1 Precautions Precautions PMH: Actinic keratosis Ankle pain (~2001) Carpal tunnel syndrome (~2014) Cervical somatic dysfunction Chronic migraine without aura, with status migrainosus Chronic neck and back pain Chronic right shoulder pain Cranial somatic dysfunction Erectile dysfunction Fibromyalgia (~2014) Fractures (~1983) GERD (gastroesophageal reflux disease) (~2011) Headache (~1995) Hearing loss Hemicrania continua Herpes (~1995) History of urinary incontinence (~2019) Hypothyroidism (acquired) Lower urinary tract symptoms ( LUTS) Lumbar region somatic dysfunction Melanoma (~2009) Migraines (~1995) Pelvic somatic dysfunction Post-void dribbling Removal of staple Rib pain on right side Sacral region somatic dysfunction Scalp laceration Sciatic pain Segmental and somatic dysfunction of abdomen and other regions Segmental and somatic dysfunction of rib cage Shoulder pain (~1999) Skin cancer (~2012) Sleep apnea (~2014) Somatic dysfunction of lower extremity Stiffness of finger joint of right hand Thoracic region somatic dysfunction Tinnitus (~2009) Vasculogenic erectile dysfunction Surgical History (Reviewed @ 21:11 by Skinny Bishop DO) Anesthesia History of carpal tunnel surgery History of fusion of cervical spine (~1995) History of fusion of cervical spine History of heart artery stent (~2012) History of hernia repair History of laminectomy (~2003) History of lumbar fusion (~ 2000) Pyloric stenosis (~194) S/P TURP (status post transurethral resection of prostate) PT-OP-B Current Condition Start: 08/01/22 08:34 Freq: Status: Active Protocol: Document 08/17/22 10:37 KEISHA (Rec: 08/17/22 11:15 SAK [id number]) Current Condition History of Current Condition Onset Date 20+ years Current Complaints LBP, difficulty sleeping and walking History of Current Condition Right SI fusion 2000. Most recently hemilaminectomy and foraminiotomy 01/07/23 L4-S1. Surgery by Dr. Khalil. Immediately after surgery some decrease in pain but pain has been gradually increasing again, taking Methocarbomol and Tramadol with minimal effect. Not doing anything else for pain. Referral messed up took a long time to get in for PT. L34 is fused. Pain is constant, increases with bending forward to right and left (left greater than right), slight with backward. N/T ronal LE's. Walking sometimes drags right heel. Pain worst with laying down, best with standing. Prior Treatments and Tests As above PT-OP-C Subjective Start: 08/01/22 08:34 Freq: Status: Active Protocol: Document 09/30/22 12:53 (Rec: 09/30/22 13:46 [id number]) OP-PT Subjective Patient Comments Patient Comments Pt has made an appointment with physician, scheduled for next month. His back pn has decreased from 8/10 to a 5/10, but he has just been resting and has not tried walking. PT-OP-G Mobility & Gait Start: 08/01/22 08:34 Freq: Status: Active Protocol: Document 08/02/22 08:08 [facility] (Rec: 08/03/22 14:50 [facility] [id number]) OP Gait Assessment Gait Gait Assistance Required: Independent Assistive Devices Assistive Device None Gait Deviations General Gait Pattern Antalgic,Decreased Stride Length,Festinating,Flexed Trunk Factors Limiting Gait Function Factors Limiting Gait Function Pain PT-OP-H Neuro Start: 08/01/22 08:34 Freq: Status: Active Protocol: Document 08/02/22 08:08 [facility] (Rec: 08/03/22 14:50 [facility] [id number]) Sensation Evaluation Gross Sensation Gross Sensation Left LE Impaired,Right LE Impaired Sensation Description Paresthesia,Pain Deep Tendon Reflex & Clonus Assessment Deep Tendon Reflex Bilateral Patellar Deep Tendon Reflex 1+ Diminished PT-OP-J Posture/Palpation/Skin Start: 08/01/22 08:34 Freq: Status: Active Protocol: Document 08/02/22 08:08 [facility] (Rec: 08/02/22 09:02 [facility] [id number]) Posture Evaluation Position Standing Head/C-Spine Posture Forward Head T-Spine Posture Increased Kyphosis L-Spine Posture Flattened Shoulder Posture (L) Rounded,(R) Rounded Scapula Posture (L) Protracted,(R) Protracted Arm Posture (L) Internally Rotated,(R) Internally Rotated Pelvis Posture Posterior Tilted Hip Posture (L) Externally Rotated,(R) Externally Rotated Palpation Assessment Location lumbar Palpation Findings Soft Tissue Tightness,Muscle Guarding,Tenderness PT-OP-L Special Tests Start: 08/01/22 08:34 Freq: Status: Active Protocol: Document 08/02/22 08:08 [facility] (Rec: 08/03/22 14:50 SAK [id number]) Special Tests Lumbar Spine Special Tests Manual Traction Test Results positive decrease in pain Darian Test Results positive for muscle tightness Straight Leg Raise Test Results positive for mod muscle tightness PT-OP-M Strength Start: 08/01/22 08:34 Freq: Status: Active Protocol: Document 08/02/22 08:08 [facility] (Rec: 08/03/22 14:50 [facility] [id number]) Trunk Strength Trunk Manual Muscle Testing Flexion 3+ Fair+ Extension 3+ Fair+ Core Stabilization poor Hip Strength Hip Manual Muscle Testing ronal Flexion (L2) 3+ Fair+ Extension (S1) 3 Fair Abduction 3 Fair External Rotation 3+ Fair+ Internal Rotation 3+ Fair+ Knee Strength Knee Manual Muscle Testing ronal Flexion (S2) 4 Good Extension (L3) 4 Good Ankle/Foot Strength Ankle and Foot Manual Muscle Testing Right Dorsiflexion (L4) 4- Good- Plantarflexion (S1) 4- Good- Left Dorsiflexion (L4) 4 Good Plantarflexion (S1) 4 Good PT-OP-Q Treatments Start: 08/01/22 08:34 Freq: Status: Active Protocol: Document 09/30/22 12:53 SW (Rec: 09/30/22 13:46 SW [id number]) Cardio Equipment Recumbent Stepper (Sci-Fit) Duration (Minutes) 10 Resistance 3 Seat Position 10 Other 75 RPMs, R hip fine, cued TA activation/posture Therapeutic Exercises Supine Exercises Transverse abdominis Supine Exercise Name Added low foot taps, switched to seated TA d/t prolonged supine discomfort Reps/Minutes 10x5 Comments cues for TrA draw in gentle- painfree ball squeeze Equipment Used ball Reps/Minutes 10x Comments cues for core activation, submax contraction Prone Exercises prone press up Prone Exercise Name elbows>modified hands with breath Reps/Minutes 3x30 Standing Exercises gluteal set Reps/Minutes 5x TA Reps/Minutes 3x 30 Manual Therapy Treatment Soft Tissue Mobilization scar tissue Body Location thoracolumbar spine Mobilization Type Instrument Assisted,Myofascial Release Body Position prone, pillow under hips Comments small suction TS, LS Mobilization Type Strumming Intensity/Depth Superficial Body Position Prone Comments Sensitive to touch PT-OP-R Modalities Start: 08/01/22 08:34 Freq: Status: Active Protocol: Document 09/20/22 14:00 SAK (Rec: 09/20/22 16:07 SAK [id number]) Hot Pack/Cold Pack Treatment Hot Pack Location right IT band and piriformis Patient Position Sidelying Treatment Duration (minutes) 15 PT-OP-T Assessment and Plan Start: 08/01/22 08:34 Freq: Status: Active Protocol: Document 09/30/22 12:53 SW (Rec: 09/30/22 13:46 SW [id number]) Physical Therapy Assessment Rehab Potential Rehabilitation Potential Good Evaluation Complexity Number of Personal Factors/Comorbidities 1-2 Number of Body Systems Impaired 3 Clinical Presentation at Evaluation Evolving Impairments Impairments Activity Tolerance,Pain, Posture,Strength Goals 3 Impairment interrupted sleep, hard to walk any distance Short Term Goal (STG) Patient to report ability to sleep for 4 hour stretches at a time without waking due to pain and able to walk for 15 min without inc in pain 08/13/22: progressing : uninterupted sleep about 3 hrs to stretch little then 4 hrs then have to get up. 09/03/22: GOAL MET got 6 hrs sleep before rib pain woke him up, wakes up stretches and apply heat and seems relieve it. Walked about 20 min incline/decline outside and noted no pain but sore next day. 09/27/22: noting inc pain and difficulty walking and sleeping recently STG Duration 10/28/22 [facility] [employer] Goal (LTG) Patient to report ability sleep for 5-6 hour stretch at a time without waking due to pain and be able to walk for 30 min without inc in pain 09/14/22: 4-5 hrs sleep pain wakes him up at about 3 am. 09/27/22: dec ability to sleep or walk past 1-2 weeks, no known reason LTG Duration 11/27/22 2 Impairment activity tolerance Impairment Oswestry score 28% Short Term Goal (STG) dec Oswestry to no greater than 20% as measure of improved activity tolerance 09/27/22: goal not met due to recent exacerbation, unknown cause STG Duration 10/26/22 [facility] [employer] Goal (LTG) Decrease Oswestry to no greater than 15% as measure of improved activity tolerance LTG Duration 11/11/22 1 Impairment pain Impairment LBP and ronal LE pain 6/10, spikes to 8/10 at times [facility] Goal (LTG) Decrease pain to no greater than 4/10 with all usual activities 09/20/22: has noted improvement in the past but today more sore, reason uncertain 09/27/22: reported pain 8/10 today LTG Duration 11/11/22 Assessment Summary Assessment Patient highly sensitive to light touch this session. Revisited manual therapy, today superficial d/t high sensitivity. Patient has an appointment scheduled with his physician for next month for his recent worsening pain. K tape seems to help, pt came with tape still intact, discussed to keep on for no longer than 4 days, but if he would like it re taped it needs to be taken off the day before to let the skin breathe . Physical Therapy Plan Frequency and Duration Frequency of Treatment 2x/Week Duration of treatment (weeks) 8 Plan of Care Start Date 09/27/22 Plan of Care End Date 11/27/22 Therapeutic Interventions Therapeutic Interventions Home Exercise Program,Manual Therapy,Neuromuscular Re- education,Patient/Caregiver Education,Self-Care/Home Management,Soft Tissue Mobilization,Taping, Therapeutic Activities, Therapeutic Exercises Modalities Cold Pack/Ice Massage,Electric Stimulation,Hot Packs, Traction- Mechanical, Ultrasound Next Visit Focus/Plan Next Note Type Treatment Note Next Visit Plan Assess response to modified kinesiotape technique. Core stabilization ex.
--- NOTE | 2022-10-04 09:47 | PT.OTN ---
Current Diagnoses Spondylosis without myelopathy or radiculopathy, lumbar region (10/04/22) Abnormal posture (10/04/22) Weakness (10/04/22) Physical Therapy Treatment Note PT-OP-A Visit Information Start: 08/01/22 08:34 Freq: Status: Active Protocol: Document 10/04/22 09:04 SP (Rec: 10/04/22 09:56 SP [id number]) Out-Patient Physical Therapy Visit Information Visit Information Visit Type Treatment Note Visit Note VINICIO Teresa provided instruction of pec stretch with pt while under direct supervision and instruction of MULTIPLE DRUM SANDER HELPER Rosi. Visit Start Time 09:04 Visit Stop Time 09:47 Total Visit Minutes 43 Visit Number 16 Number of MULTIPLE DRUM SANDER HELPER Visits 2 Evaluation Information Evaluation Date 08/02/22 Precautions Precautions PMH: Actinic keratosis Ankle pain (~2001) Carpal tunnel syndrome (~2014) Cervical somatic dysfunction Chronic migraine without aura, with status migrainosus Chronic neck and back pain Chronic right shoulder pain Cranial somatic dysfunction Erectile dysfunction Fibromyalgia (~2014) Fractures (~1983) GERD (gastroesophageal reflux disease) (~2011) Headache (~1995) Hearing loss Hemicrania continua Herpes (~1995) History of urinary incontinence (~2019) Hypothyroidism (acquired) Lower urinary tract symptoms ( LUTS) Lumbar region somatic dysfunction Melanoma (~2009) Migraines (~1995) Pelvic somatic dysfunction Post-void dribbling Removal of staple Rib pain on right side Sacral region somatic dysfunction Scalp laceration Sciatic pain Segmental and somatic dysfunction of abdomen and other regions Segmental and somatic dysfunction of rib cage Shoulder pain (~1999) Skin cancer (~2012) Sleep apnea (~2014) Somatic dysfunction of lower extremity Stiffness of finger joint of right hand Thoracic region somatic dysfunction Tinnitus (~2009) Vasculogenic erectile dysfunction Surgical History (Reviewed @ 21:11 by Skinny Bishop DO) Anesthesia History of carpal tunnel surgery History of fusion of cervical spine (~1995) History of fusion of cervical spine History of heart artery stent (~2012) History of hernia repair History of laminectomy (~2003) History of lumbar fusion (~ 2000) Pyloric stenosis (~194) S/P TURP (status post transurethral resection of prostate) PT-OP-B Current Condition Start: 08/01/22 08:34 Freq: Status: Active Protocol: Document 08/17/22 10:37 SAK (Rec: 08/17/22 11:15 [facility] [id number]) Current Condition History of Current Condition Onset Date 20+ years Current Complaints LBP, difficulty sleeping and walking History of Current Condition Right SI fusion 2000. Most recently hemilaminectomy and foraminiotomy 01/07/23 L4-S1. Surgery by Dr. Khalil. Immediately after surgery some decrease in pain but pain has been gradually increasing again, taking Methocarbomol and Tramadol with minimal effect. Not doing anything else for pain. Referral messed up took a long time to get in for PT. L34 is fused. Pain is constant, increases with bending forward to right and left (left greater than right), slight with backward. N/T ronal LE's. Walking sometimes drags right heel. Pain worst with laying down, best with standing. Prior Treatments and Tests As above PT-OP-C Subjective Start: 08/01/22 08:34 Freq: Status: Active Protocol: Document 10/04/22 09:04 SP (Rec: 10/04/22 09:56 SP [id number]) OP-PT Subjective Patient Comments Patient Comments Pt reported 7/10 LB and R lateral ribcage. He reports traveling around looking for items for landscaping sidewalk but didn't worsen. He states prefers will stay away from manual to ribcage but found Ktaping helped, removed and request to reapply. PT-OP-G Mobility & Gait Start: 08/01/22 08:34 Freq: Status: Active Protocol: Document 08/02/22 08:08 [facility] (Rec: 08/03/22 14:50 [facility] [id number]) OP Gait Assessment Gait Gait Assistance Required: Independent Assistive Devices Assistive Device None Gait Deviations General Gait Pattern Antalgic,Decreased Stride Length,Festinating,Flexed Trunk Factors Limiting Gait Function Factors Limiting Gait Function Pain PT-OP-H Neuro Start: 08/01/22 08:34 Freq: Status: Active Protocol: Document 08/02/22 08:08 [facility] (Rec: 08/03/22 14:50 [facility] [id number]) Sensation Evaluation Gross Sensation Gross Sensation Left LE Impaired,Right LE Impaired Sensation Description Paresthesia,Pain Deep Tendon Reflex & Clonus Assessment Deep Tendon Reflex Bilateral Patellar Deep Tendon Reflex 1+ Diminished PT-OP-J Posture/Palpation/Skin Start: 08/01/22 08:34 Freq: Status: Active Protocol: Document 08/02/22 08:08 SAK (Rec: 08/02/22 09:02 SAK [id number]) Posture Evaluation Position Standing Head/C-Spine Posture Forward Head T-Spine Posture Increased Kyphosis L-Spine Posture Flattened Shoulder Posture (L) Rounded,(R) Rounded Scapula Posture (L) Protracted,(R) Protracted Arm Posture (L) Internally Rotated,(R) Internally Rotated Pelvis Posture Posterior Tilted Hip Posture (L) Externally Rotated,(R) Externally Rotated Palpation Assessment Location lumbar Palpation Findings Soft Tissue Tightness,Muscle Guarding,Tenderness PT-OP-L Special Tests Start: 08/01/22 08:34 Freq: Status: Active Protocol: Document 08/02/22 08:08 [facility] (Rec: 08/03/22 14:50 SAK [id number]) Special Tests Lumbar Spine Special Tests Manual Traction Test Results positive decrease in pain Darian Test Results positive for muscle tightness Straight Leg Raise Test Results positive for mod muscle tightness PT-OP-M Strength Start: 08/01/22 08:34 Freq: Status: Active Protocol: Document 08/02/22 08:08 [facility] (Rec: 08/03/22 14:50 [facility] [id number]) Trunk Strength Trunk Manual Muscle Testing Flexion 3+ Fair+ Extension 3+ Fair+ Core Stabilization poor Hip Strength Hip Manual Muscle Testing ronal Flexion (L2) 3+ Fair+ Extension (S1) 3 Fair Abduction 3 Fair External Rotation 3+ Fair+ Internal Rotation 3+ Fair+ Knee Strength Knee Manual Muscle Testing ronal Flexion (S2) 4 Good Extension (L3) 4 Good Ankle/Foot Strength Ankle and Foot Manual Muscle Testing Right Dorsiflexion (L4) 4- Good- Plantarflexion (S1) 4- Good- Left Dorsiflexion (L4) 4 Good Plantarflexion (S1) 4 Good PT-OP-Q Treatments Start: 08/01/22 08:34 Freq: Status: Active Protocol: Document 10/04/22 09:04 SP (Rec: 10/04/22 09:56 SP [id number]) Cardio Equipment Recumbent Stepper (Sci-Fit) Duration (Minutes) 10 Resistance 3 Seat Position 10 Other 70 RPMs, R hip/back/ribcage sore, cued TA activation/ posture awareness Therapeutic Exercises Supine Exercises piriformis stretch Side right Equipment Used Towel support LE Reps/Minutes 30 Comments initially LB tension, less with time stretched- lessened posterolateral pn Standing Exercises pec stretch Standing Exercise Name add to HEP Side bilateral Reps/Minutes 30 x2 Comments cued CS, TS, stagger stance wt shift. resisted rows, shld ext Standing Exercise Name reviewed HEP: rows only, ext irritated R lateral ribcage Resistance TB #3 Reps/Minutes 2x10 Comments cued slow con/eccentric, no LB arch- good core painfree back wall posture Standing Exercise Name reviewed HEP Reps/Minutes 5 SH x5- Comments cued TA and glute activiation; used towel as tactial cue for chin tuck Manual Therapy Treatment Soft Tissue Mobilization piriformis Body Location R Mobilization Type Sustained Pressure Intensity/Depth Moderate Body Position Sidelying Taping thoracolumbar spine Comments central spine S2-T12 I strip vertical, paper off tension L5-S1 horizontal 75% stretch I strip, T12 horizontal 75% stretch I strip PT-OP-R Modalities Start: 08/01/22 08:34 Freq: Status: Active Protocol: Document 09/20/22 14:00 SAK (Rec: 09/20/22 16:07 SAK [id number]) Hot Pack/Cold Pack Treatment Hot Pack Location right IT band and piriformis Patient Position Sidelying Treatment Duration (minutes) 15 PT-OP-T Assessment and Plan Start: 08/01/22 08:34 Freq: Status: Active Protocol: Document 10/04/22 09:04 SP (Rec: 10/04/22 09:56 SP [id number]) Physical Therapy Assessment Goals 3 Impairment interrupted sleep, hard to walk any distance Short Term Goal (STG) Patient to report ability to sleep for 4 hour stretches at a time without waking due to pain and able to walk for 15 min without inc in pain 08/13/22: progressing : uninterupted sleep about 3 hrs to stretch little then 4 hrs then have to get up. 09/03/22: GOAL MET got 6 hrs sleep before rib pain woke him up, wakes up stretches and apply heat and seems relieve it. Walked about 20 min incline/decline outside and noted no pain but sore next day. 09/27/22: noting inc pain and difficulty walking and sleeping recently STG Duration 10/28/22 [employer] Consultant Goal (LTG) Patient to report ability sleep for 5-6 hour stretch at a time without waking due to pain and be able to walk for 30 min without inc in pain 09/14/22: 4-5 hrs sleep pain wakes him up at about 3 am. 09/27/22: dec ability to sleep or walk past 1-2 weeks, no known reason LTG Duration 11/27/22 2 Impairment activity tolerance Impairment Oswestry score 28% Short Term Goal (STG) dec Oswestry to no greater than 20% as measure of improved activity tolerance 09/27/22: goal not met due to recent exacerbation, unknown cause STG Duration 10/26/22 [facility] Goal (LTG) Decrease Oswestry to no greater than 15% as measure of improved activity tolerance LTG Duration 11/11/22 1 Impairment pain Impairment LBP and ronal LE pain 10/30, spikes to 8/10 at times Organizational Development Consultant Goal (LTG) Decrease pain to no greater than 4/10 with all usual activities 09/20/22: has noted improvement in the past but today more sore, reason uncertain 09/27/22: reported pain 8/10 today LTG Duration 11/11/22 Assessment Summary Assessment Pt reported good pec stretch in corner verses single arm at corner, less ribcage/ trunk rotation recruitment. Pt good feedback reponse to stretching and understanding use ball on wall home assistance. Releases PF manual/stretching post L shld pec stretch over recruited R LB/piriformis and into leg. Physical Therapy Plan Frequency and Duration Frequency of Treatment 2x/Week Duration of treatment (weeks) 8 Plan of Care Start Date 09/27/22 Plan of Care End Date 11/27/22 Therapeutic Interventions Therapeutic Interventions Home Exercise Program,Manual Therapy,Neuromuscular Re- education,Patient/Caregiver Education,Self-Care/Home Management,Soft Tissue Mobilization,Taping, Therapeutic Activities, Therapeutic Exercises Modalities Cold Pack/Ice Massage,Electric Stimulation,Hot Packs, Traction- Mechanical, Ultrasound Next Visit Focus/Plan Next Note Type Treatment Note Next Visit Plan Continue Ktaping support as needed (good response). Next tx assess quadruped, continue prone on elbows, maybe add side glids at wall. POC: Core stabilization ex.
--- NOTE | 2022-10-07 10:50 | PT.OTN ---
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) Abnormal posture (10/07/22) Weakness (10/07/22) Physical Therapy Treatment Note PT-OP-A Visit Information Start: 08/01/22 08:34 Freq: Status: Active Protocol: Document 10/07/22 09:37 [facility] (Rec: 10/07/22 10:49 [facility] [id number]) Out-Patient Physical Therapy Visit Information Visit Information Visit Type Treatment Note Visit Start Time 09:30 Visit Stop Time 10:20 Total Visit Minutes 50 Visit Number 17 Number of [employer] Visits 0 Evaluation Information Evaluation Date 08/02/22 Precautions Precautions PMH: Actinic keratosis Ankle pain (~2001) Carpal tunnel syndrome (~2014) Cervical somatic dysfunction Chronic migraine without aura, with status migrainosus Chronic neck and back pain Chronic right shoulder pain Cranial somatic dysfunction Erectile dysfunction Fibromyalgia (~2014) Fractures (~1983) GERD (gastroesophageal reflux disease) (~2011) Headache (~1995) Hearing loss Hemicrania continua Herpes (~1995) History of urinary incontinence (~2019) Hypothyroidism (acquired) Lower urinary tract symptoms ( LUTS) Lumbar region somatic dysfunction Melanoma (~2009) Migraines (~1995) Pelvic somatic dysfunction Post-void dribbling Removal of staple Rib pain on right side Sacral region somatic dysfunction Scalp laceration Sciatic pain Segmental and somatic dysfunction of abdomen and other regions Segmental and somatic dysfunction of rib cage Shoulder pain (~1999) Skin cancer (~2012) Sleep apnea (~2014) Somatic dysfunction of lower extremity Stiffness of finger joint of right hand Thoracic region somatic dysfunction Tinnitus (~2009) Vasculogenic erectile dysfunction Surgical History (Reviewed @ 21:11 by Skinny Bishop DO) Anesthesia History of carpal tunnel surgery History of fusion of cervical spine (~1995) History of fusion of cervical spine History of heart artery stent (~2012) History of hernia repair History of laminectomy (~2003) History of lumbar fusion (~ 2000) Pyloric stenosis (~194) S/P TURP (status post transurethral resection of prostate) PT-OP-B Current Condition Start: 08/01/22 08:34 Freq: Status: Active Protocol: Document 08/17/22 10:37 [facility] (Rec: 08/17/22 11:15 [facility]AK [id number]) Current Condition History of Current Condition Onset Date 20+ years Current Complaints LBP, difficulty sleeping and walking History of Current Condition Right SI fusion 2000. Most recently hemilaminectomy and foraminiotomy 01/07/23 L4-S1. Surgery by Dr. Khalil. Immediately after surgery some decrease in pain but pain has been gradually increasing again, taking Methocarbomol and Tramadol with minimal effect. Not doing anything else for pain. Referral messed up took a long time to get in for PT. L34 is fused. Pain is constant, increases with bending forward to right and left (left greater than right), slight with backward. N/T ronal LE's. Walking sometimes drags right heel. Pain worst with laying down, best with standing. Prior Treatments and Tests As above PT-OP-C Subjective Start: 08/01/22 08:34 Freq: Status: Active Protocol: Document 10/07/22 09:37 [facility] (Rec: 10/07/22 10:49 [facility] [id number]) OP-PT Subjective Patient Comments Patient Comments Pain persists, right lateral ribcage pain continues. Doing exercises but don't seem to be helpful. States he runs into the most problem with watching his body mechanics. Hasn't been wearing his back brace or using TENS. Hsn't yet gone to the pool or contacted aquatic therapist. PT-OP-G Mobility & Gait Start: 08/01/22 08:34 Freq: Status: Active Protocol: Document 08/02/22 08:08 [facility] (Rec: 08/03/22 14:50 [facility] [id number]) OP Gait Assessment Gait Gait Assistance Required: Independent Assistive Devices Assistive Device None Gait Deviations General Gait Pattern Antalgic,Decreased Stride Length,Festinating,Flexed Trunk Factors Limiting Gait Function Factors Limiting Gait Function Pain PT-OP-H Neuro Start: 08/01/22 08:34 Freq: Status: Active Protocol: Document 08/02/22 08:08 [facility] (Rec: 08/03/22 14:50 [facility] [id number]) Sensation Evaluation Gross Sensation Gross Sensation Left LE Impaired,Right LE Impaired Sensation Description Paresthesia,Pain Deep Tendon Reflex & Clonus Assessment Deep Tendon Reflex Bilateral Patellar Deep Tendon Reflex 1+ Diminished PT-OP-J Posture/Palpation/Skin Start: 08/01/22 08:34 Freq: Status: Active Protocol: Document 08/02/22 08:08 [facility] (Rec: 08/02/22 09:02 [facility] [id number]) Posture Evaluation Position Standing Head/C-Spine Posture Forward Head T-Spine Posture Increased Kyphosis L-Spine Posture Flattened Shoulder Posture (L) Rounded,(R) Rounded Scapula Posture (L) Protracted,(R) Protracted Arm Posture (L) Internally Rotated,(R) Internally Rotated Pelvis Posture Posterior Tilted Hip Posture (L) Externally Rotated,(R) Externally Rotated Palpation Assessment Location lumbar Palpation Findings Soft Tissue Tightness,Muscle Guarding,Tenderness PT-OP-L Special Tests Start: 08/01/22 08:34 Freq: Status: Active Protocol: Document 08/02/22 08:08 [facility] (Rec: 08/03/22 14:50 [facility] [id number]) Special Tests Lumbar Spine Special Tests Manual Traction Test Results positive decrease in pain Darian Test Results positive for muscle tightness Straight Leg Raise Test Results positive for mod muscle tightness PT-OP-M Strength Start: 08/01/22 08:34 Freq: Status: Active Protocol: Document 08/02/22 08:08 [facility] (Rec: 08/03/22 14:50 [facility] [id number]) Trunk Strength Trunk Manual Muscle Testing Flexion 3+ Fair+ Extension 3+ Fair+ Core Stabilization poor Hip Strength Hip Manual Muscle Testing ronal Flexion (L2) 3+ Fair+ Extension (S1) 3 Fair Abduction 3 Fair External Rotation 3+ Fair+ Internal Rotation 3+ Fair+ Knee Strength Knee Manual Muscle Testing ronal Flexion (S2) 4 Good Extension (L3) 4 Good Ankle/Foot Strength Ankle and Foot Manual Muscle Testing Right Dorsiflexion (L4) 4- Good- Plantarflexion (S1) 4- Good- Left Dorsiflexion (L4) 4 Good Plantarflexion (S1) 4 Good PT-OP-Q Treatments Start: 08/01/22 08:34 Freq: Status: Active Protocol: Document 10/07/22 09:37 [facility] (Rec: 10/07/22 10:49 [facility] [id number]) Cardio Equipment Recumbent Stepper (Sci-Fit) Duration (Minutes) 10 Resistance 3 Seat Position 10 Other 70 RPMs, R hip/back/ribcage sore, cued TA activation/ posture awareness Therapeutic Exercises Supine Exercises deep breathing Supine Exercise Name emphasis on lateral chest Resistance L1 TB Reps/Minutes 5x Comments cues for longer exhale, pause at top of inhale/bottom exhale overhead stretch Reps/Minutes 2x30 hip abd swapna Supine Exercise Name HEP review gluteal set Supine Exercise Name HEP review Transverse abdominis Supine Exercise Name Added low foot taps Reps/Minutes 10x5 Comments cues for TrA draw in gentle- painfree ball squeeze Supine Exercise Name HEP review Prone Exercises Sheridan UE/LE lift Reps/Minutes 10x5 Comments cues for core act, pain-free lift prone press up Prone Exercise Name HEP review Sidelying Exercises open book Sidelying Exercise Name d/c prev due to discomfort Sitting Exercises TS rotation Sitting Exercise Name d/c prev due to discomfort Manual Therapy Treatment Soft Tissue Mobilization TS, LS Mobilization Type Strumming Intensity/Depth Moderate Body Position Prone Taping thoracolumbar spine Comments central spine S2-T12 I strip vertical, paper off tension L5-S1 horizontal 75% stretch I strip, T12 horizontal 75% stretch I strip, added x space correction top and bottom centrally PT-OP-R Modalities Start: 08/01/22 08:34 Freq: Status: Active Protocol: Document 09/20/22 14:00 [facility] (Rec: 09/20/22 16:07 [facility] [id number]) Hot Pack/Cold Pack Treatment Hot Pack Location right IT band and piriformis Patient Position Sidelying Treatment Duration (minutes) 15 PT-OP-T Assessment and Plan Start: 08/01/22 08:34 Freq: Status: Active Protocol: Document 10/07/22 09:37 [facility] (Rec: 10/07/22 10:49 [facility] [id number]) Physical Therapy Assessment Goals 3 Impairment interrupted sleep, hard to walk any distance Short Term Goal (STG) Patient to report ability to sleep for 4 hour stretches at a time without waking due to pain and able to walk for 15 min without inc in pain 08/13/22: progressing : uninterupted sleep about 3 hrs to stretch little then 4 hrs then have to get up. 09/03/22: GOAL MET got 6 hrs sleep before rib pain woke him up, wakes up stretches and apply heat and seems relieve it. Walked about 20 min incline/decline outside and noted no pain but sore next day. 09/27/22: noting inc pain and difficulty walking and sleeping recently STG Duration 10/28/22 [employer] Goal (LTG) Patient to report ability sleep for 5-6 hour stretch at a time without waking due to pain and be able to walk for 30 min without inc in pain 09/14/22: 4-5 hrs sleep pain wakes him up at about 3 am. 09/27/22: dec ability to sleep or walk past 1-2 weeks, no known reason LTG Duration 11/27/22 2 Impairment activity tolerance Impairment Oswestry score 28% Short Term Goal (STG) dec Oswestry to no greater than 20% as measure of improved activity tolerance 09/27/22: goal not met due to recent exacerbation, unknown cause STG Duration 10/26/22 [facility] Goal (LTG) Decrease Oswestry to no greater than 15% as measure of improved activity tolerance LTG Duration 11/11/22 1 Impairment pain Impairment LBP and ronal LE pain 10/30, spikes to 8/10 at times [facility] Goal (LTG) Decrease pain to no greater than 4/10 with all usual activities 09/20/22: has noted improvement in the past but today more sore, reason uncertain 09/27/22: reported pain 8/10 today LTG Duration 11/11/22 Assessment Summary Assessment Patient has had poor follow- through with aquatic exercise, use of TENS or brace at home. Most benefit in PT has been with kinesiotape; applied again today with additional x space correction sup and inf for stabilization. Review and progression of his HEP. Patient to return to physician prior to any further PT due to persistent pain. Physical Therapy Plan Frequency and Duration Frequency of Treatment 2x/Week Duration of treatment (weeks) 8 Plan of Care Start Date 09/27/22 Plan of Care End Date 11/27/22 Therapeutic Interventions Therapeutic Interventions Home Exercise Program,Manual Therapy,Neuromuscular Re- education,Patient/Caregiver Education,Self-Care/Home Management,Soft Tissue Mobilization,Taping, Therapeutic Activities, Therapeutic Exercises Modalities Cold Pack/Ice Massage,Electric Stimulation,Hot Packs, Traction- Mechanical, Ultrasound Next Visit Focus/Plan Next Note Type Treatment Note Next Visit Plan Patient to return to physician prior to any further PT, consider massage therapy, contact aquatic therapist, resume use of TENS and brace at home. May do further PT pending doctor's recommendations, response to above.
--- NOTE | 2022-12-23 13:04 | PT.OPDS ---
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) Abnormal posture (10/07/22) Weakness (10/07/22) Visit Care Team Role Provider Type David Dewitt DO Family Provider Physician Primary Care Provider Specialty: Family Practice Address: [address] [place] [address], [id number] Email: Jose Carlos Khalil Attending Provider Non-Staff Referring Provider Specialty: Neurosurgery Address: [address] [place] [address], [id number] Email: Visit Number Visit Number 17 Discharge Summary PT-OP-B Current Condition Start: 08/01/22 08:34 Freq: Status: Active Protocol: Document 08/17/22 10:37 SAK (Rec: 08/17/22 11:15 SAK [id number]) Current Condition History of Current Condition Onset Date 20+ years Current Complaints LBP, difficulty sleeping and walking History of Current Condition Right SI fusion 2000. Most recently hemilaminectomy and foraminiotomy 01/07/23 L4-S1. Surgery by Dr. Khalil. Immediately after surgery some decrease in pain but pain has been gradually increasing again, taking Methocarbomol and Tramadol with minimal effect. Not doing anything else for pain. Referral messed up took a long time to get in for PT. L34 is fused. Pain is constant, increases with bending forward to right and left (left greater than right), slight with backward. N/T ronal LE's. Walking sometimes drags right heel. Pain worst with laying down, best with standing. Prior Treatments and Tests As above PT-OP-C Subjective Start: 08/01/22 08:34 Freq: Status: Active Protocol: Document 10/07/22 09:37 SAK (Rec: 10/07/22 10:49 SAK [id number]) OP-PT Subjective Patient Comments Patient Comments Pain persists, right lateral ribcage pain continues. Doing exercises but don't seem to be helpful. States he runs into the most problem with watching his body mechanics. Hasn't been wearing his back brace or using TENS. Hsn't yet gone to the pool or contacted aquatic therapist. PT-OP-G Mobility & Gait Start: 08/01/22 08:34 Freq: Status: Active Protocol: Document 08/02/22 08:08 [facility] (Rec: 08/03/22 14:50 [facility] [id number]) OP Gait Assessment Gait Gait Assistance Required: Independent Assistive Devices Assistive Device None Gait Deviations General Gait Pattern Antalgic,Decreased Stride Length,Festinating,Flexed Trunk Factors Limiting Gait Function Factors Limiting Gait Function Pain PT-OP-H Neuro Start: 08/01/22 08:34 Freq: Status: Active Protocol: Document 08/02/22 08:08 [facility] (Rec: 08/03/22 14:50 [facility] [id number]) Sensation Evaluation Gross Sensation Gross Sensation Left LE Impaired,Right LE Impaired Sensation Description Paresthesia,Pain Deep Tendon Reflex & Clonus Assessment Deep Tendon Reflex Bilateral Patellar Deep Tendon Reflex 1+ Diminished PT-OP-J Posture/Palpation/Skin Start: 08/01/22 08:34 Freq: Status: Active Protocol: Document 08/02/22 08:08 [facility] (Rec: 08/02/22 09:02 [facility] [id number]) Posture Evaluation Position Standing Head/C-Spine Posture Forward Head T-Spine Posture Increased Kyphosis L-Spine Posture Flattened Shoulder Posture (L) Rounded,(R) Rounded Scapula Posture (L) Protracted,(R) Protracted Arm Posture (L) Internally Rotated,(R) Internally Rotated Pelvis Posture Posterior Tilted Hip Posture (L) Externally Rotated,(R) Externally Rotated Palpation Assessment Location lumbar Palpation Findings Soft Tissue Tightness,Muscle Guarding,Tenderness PT-OP-L Special Tests Start: 08/01/22 08:34 Freq: Status: Active Protocol: Document 08/02/22 08:08 [facility] (Rec: 08/03/22 14:50 [facility] [id number]) Special Tests Lumbar Spine Special Tests Manual Traction Test Results positive decrease in pain Darian Test Results positive for muscle tightness Straight Leg Raise Test Results positive for mod muscle tightness PT-OP-M Strength Start: 08/01/22 08:34 Freq: Status: Active Protocol: Document 08/02/22 08:08 [facility] (Rec: 08/03/22 14:50 [facility] [id number]) Trunk Strength Trunk Manual Muscle Testing Flexion 3+ Fair+ Extension 3+ Fair+ Core Stabilization poor Hip Strength Hip Manual Muscle Testing ronal Flexion (L2) 3+ Fair+ Extension (S1) 3 Fair Abduction 3 Fair External Rotation 3+ Fair+ Internal Rotation 3+ Fair+ Knee Strength Knee Manual Muscle Testing ronal Flexion (S2) 4 Good Extension (L3) 4 Good Ankle/Foot Strength Ankle and Foot Manual Muscle Testing Right Dorsiflexion (L4) 4- Good- Plantarflexion (S1) 4- Good- Left Dorsiflexion (L4) 4 Good Plantarflexion (S1) 4 Good PT-OP-T Assessment and Plan Start: 08/01/22 08:34 Freq: Status: Active Protocol: Document 12/23/22 13:04 KEISHA (Rec: 12/23/22 13:04 [facility] [id number]) Physical Therapy Plan Discharge Physical Therapy Discharge Reasons No Longer Attending PT
== END 2022-12-29 16:09 | disposition home or self-care (01) ==
LOC: PHYS 09:30
PROVIDERS: Family Provider Family Medicine; PCP Family Medicine; Referring Provider Neurological Surgery; Visit Provider Neurological Surgery
DX: M47.816 Spondylosis without myelopathy or radiculopathy, lumbar region (principal); R53.1 Weakness; R29.3 Abnormal posture
CPT/HCPCS: 97032; 97110; 97140; 97162; 97535

== ENCOUNTER → 2022-12-08 16:51 | Outpatient (CLI) | payer MEDICARE, OTHER, SELFPAY ==
[2020-06-19 22:47] VITALS: BMI 26.1
== END ==
PROVIDERS: Family Provider Family Medicine; PCP Family Medicine; Visit Provider Nurse Practitioner Family
DX: R39.9 Unspecified symptoms and signs involving the genitourinary system (principal)
CPT/HCPCS: 87086

== ENCOUNTER 2022-12-08 17:35 | Emergency (ER) | payer MEDICARE, OTHER, SELFPAY ==
[2020-06-19 22:47] VITALS: BMI 26.1
[2022-12-08 17:51] VITALS: BP 135/71; PULSE 78; RESP 20; TEMP 39.2; O2SAT 97; BMI 27.2
--- NOTE | 2022-12-08 18:15 | DI.RAD.S_ITS ---
PROCEDURE: XR CHEST 1V INDICATIONS: suspected sepsis TECHNIQUE: One view of the chest was acquired. COMPARISON: [facility], CR, XR CHEST 2V, 07/16/2020, 14:29. FINDINGS: Surgical changes and devices: Cervical spine fusion hardware. By plasties. Lungs and pleura: Chronic asymmetric right hemidiaphragm elevation. Given this, the visible lung garcia are clear. No pneumothorax or significant pleural effusion. Mediastinum: Mediastinal contours appear normal. Heart size is normal. Bones and chest wall: No suspicious bony lesions. Overlying soft tissues appear unremarkable. IMPRESSION: No acute cardiopulmonary disease. Dictated by: Mary Noyola M.D. on 12/08/2022 at 19:19 Approved by: Mary Noyola M.D. on 12/08/2022 at 19:19
[2022-12-08] MEDS: IBUPROFEN 400 MG TABLET 800 MG PO (18:45)
[2022-12-08] MEDS: SODIUM CHLORIDE 0.9% 1,000 ML 1000 ML IV (18:46)
[2022-12-08 18:56] LABS: INR 1.1 (0.9-1.3); Prothrombin Time 12.8 SECONDS (10.1-12.7)
[2022-12-08 18:59] LABS: PTT Partial Thromboplastin Tim 31 SECONDS (26-36)
[2022-12-08 19:00] VITALS: BP 146/74; PULSE 77; RESP 23; O2SAT 95
[2022-12-08 19:00] LABS: Lactate (Lactic Acid) 1.2 mmol/L (0.7-2.1)
[2022-12-08 19:02] LABS: Alanine Aminotransferase 26 IU/L (<50); Albumin 4.7 g/dL (3.5-5.0); Albumin Globulin Ratio 1.5 (1.0-2.8); Alkaline Phosphatase 70 U/L (38-126); Aspartate Aminotransferase 34 IU/L (17-59); BUN Creatinine Ratio 20.2 (6-22); Bilirubin Total 1.1 mg/dL (0.2-1.3); Blood Urea Nitrogen 18 mg/dL (9-20); Calcium 9.1 mg/dL (8.4-10.2); Carbon Dioxide 26 mmol/L (22-32); Chloride 97 mmol/L (98-107); Creatine Kinase 91 U/L (55-170); Estimated Glomerular Filt Rate > 60 mL/min (>60); Globulin 3.2 g/dL (1.7-4.1); Glucose 99 mg/dL (80-110); HEMOLYSIS 23 (0-50); Lipase 54 U/L (23-300); Potassium 4.5 mmol/L (3.4-5.1); Sodium 131 mmol/L (137-145); Total Protein 7.9 g/dL (6.3-8.2)
[2022-12-08 19:07] LABS: Add Manual Diff / Slide Review NO; Basophils Absolute Auto 0 /uL (0-100); Basophils Percent Auto 0.3 % (0-2); Eosinophils Absolute Auto 0 /uL (0-450); Hematocrit 42.9 % (41-53); Hemoglobin 14.7 g/dL (13.5-17.5); Lymphocytes Absolute Auto 500 /uL (1100-4500); Lymphocytes Percent Auto 7.5 % (25-40); Mean Corpuscular HGB Conc 34.3 % (30-36); Mean Corpuscular Hemoglobin 31.2 PG (26-34); Mean Corpuscular Volume 90.9 fL (80-100); Monocytes Absolute Auto 900 /uL (0-900); Monocytes Percent Auto 12.7 % (3-14); Neutrophils Absolute Auto 5500 /uL (1500-7000); Neutrophils Percent Auto 79.5 % (50-75); Platelet Count 79 X10^3/uL (150-400); Red Blood Cell Count 4.72 X10^6/uL (4.5-5.9); Red Cell Distribution Width 13.8 % (11.6-14.8); White Blood Cell Count 6.9 X10^3/uL (4.5-11.0)
[2022-12-08 19:10] LABS: Strep Grp A by PCR Rapid Negative (Negative)
[2022-12-08 19:13] LABS: NT-proBNP (BNP-Adult 18+) 1270 pg/mL (<450); Troponin I 0.021 ng/mL (0.01-0.034)
[2022-12-08 19:18] LABS: Procalcitonin 0.09 ng/mL (<0.5)
[2022-12-08 19:30] VITALS: BP 140/73; PULSE 75; RESP 22; O2SAT 96
[2022-12-08 19:53] LABS: Adenovirus Not Detected (Not Detect); Coronavirus 229E Not Detected (Not Detect); Coronavirus HKU1 Not Detected (Not Detect); Coronavirus NL 63 Not Detected (Not Detect); Coronavirus OC43 Not Detected (Not Detect); Human Metapneumovirus Not Detected (Not Detect); Human Rhinovirus/Enterovirus Not Detected (Not Detect); Influenza A Not Detected (Not Detect); Influenza B Not Detected (Not Detect); Parainfluenza Virus 1 Not Detected (Not Detect); Parainfluenza Virus 2 Not Detected (Not Detect)
--- NOTE | 2022-12-08 19:53 | ED_ITS ---
HPI - General Adult General Chief complaint: Altered Mental Status Stated complaint: ams, unsteady, possible uti Time Seen by Provider: 12/08/22 18:02 Source: patient Mode of arrival: Ambulatory History of Present Illness HPI narrative: Patient is a 77-year-old male who was sent to the emergency department for the walk-in clinic for concerns of a possible urinary tract infection. Patient's symptoms started yesterday. He did have cataract surgery yesterday. When he got home he just generally did not feel very well. Has had a sore throat for the past couple days. Headache, body aches. No cough. No chest pain. No shortness of breath. No abdominal pain. No nausea vomiting. No specific urinary symptoms. No skin rashes. He is not having any sinus congestion. His reported that he seemed a little off over the past 24 hours. He did take cyclobenzaprine today which he normally only takes at night. Related Data Home Medications Medication Instructions Recorded Confirmed omeprazole 10 mg capsule,delayed 10 mg PO DAILY 06/19/20 12/08/22 release Previous Rx's Medication Instructions Recorded tadalafil 5 mg tablet (Cialis) 5 mg PO DAILY PRN sexual activity 04/30/21 #60 tabs tramadol 50 mg tablet See Rx Instructions .Route 01/20/22 .COMPLEX #180 tabs methocarbamol 500 mg tablet 500 mg PO TID PRN muscle spasm #30 05/05/22 tabs rosuvastatin 20 mg tablet (Crestor) 20 mg PO DAILY #90 tabs 05/05/22 alprostadil 1,000 mcg 1,000 mcg intra-urethral ONCE #6 ea 05/31/22 intra-urethral suppository ([place]) naratriptan 2.5 mg tablet See Rx Instructions .Route 06/07/22 .COMPLEX #27 tabs pregabalin 200 mg capsule See Rx Instructions .Route 08/20/22 .COMPLEX #180 caps levothyroxine 75 mcg tablet See Rx Instructions .Route 10/25/22 .COMPLEX #90 tabs Allergies Allergy/AdvReac Type Severity Reaction Status Date / Time clopidogrel [From Plavix] Allergy Verified 12/08/22 18:04 honey AdvReac Gastrointestinal Verified 12/08/22 18:04 Upset Review of Systems Review of Systems ROS Unobtainable: All systems reviewed & are unremarkable except as noted in HPI and below Patient History Medical History Actinic keratosis Ankle pain (~2001) Carpal tunnel syndrome (~2014) Cervical somatic dysfunction Chronic migraine without aura, with status migrainosus Chronic neck and back pain Chronic right shoulder pain Cough Cranial somatic dysfunction Encounter for initial annual wellness visit (AWV) in Medicare patient Erectile dysfunction Fever Fibromyalgia (~2014) Fractures (~1983) GERD (gastroesophageal reflux disease) (~2011) Headache (~1995) Hearing loss Hemicrania continua Herpes (~1995) History of urinary incontinence (~2019) Hypothyroidism Hypothyroidism (acquired) Lower urinary tract symptoms (LUTS) Lumbar region somatic dysfunction Melanoma (~2009) Migraines (~1995) Pelvic somatic dysfunction Post-void dribbling Removal of staple Rib pain on right side Sacral region somatic dysfunction Scalp laceration Sciatic pain Segmental and somatic dysfunction of abdomen and other regions Segmental and somatic dysfunction of rib cage Shoulder pain (~1999) Skin cancer (~2012) Sleep apnea (~2014) Somatic dysfunction of lower extremity Stiffness of finger joint of right hand Thoracic region somatic dysfunction Tinnitus (~2009) Vasculogenic erectile dysfunction Surgical History Anesthesia History of carpal tunnel surgery History of fusion of cervical spine (~1995) History of fusion of cervical spine History of heart artery stent (~2012) History of hernia repair History of laminectomy (~2003) History of lumbar fusion (~2000) Pyloric stenosis (~194) S/P TURP (status post transurethral resection of prostate) Family History Father CAD (coronary artery disease) Diabetes mellitus History of heart disease Hypertension Congestive heart failure Mother Congestive heart failure Sister Cancer Hypertension Hyperlipidemia Social History household members: friend(s) Smoking Status: Never smoker Smoking Status: Never smoker alcohol intake frequency: 0-2 drinks per day Substance Use Type: does not use Exam Initial Vital Signs Initial Vital Signs: Vital Signs Temperature 102.6 F H 12/08/22 17:51 Pulse Rate 78 12/08/22 17:51 Respiratory Rate 20 12/08/22 17:51 Blood Pressure 135/71 12/08/22 17:51 Pulse Oximetry 97 07/19/23 17:51 Oxygen Delivery Method Room Air 12/08/22 17:51 Const General: cooperative, comfortable and No ill appearing HENMT Head: normal to inspection and normocephalic Ears: TM's normal bilaterally Mouth: oral mucosae normal and moist mucous membranes Throat: posterior oropharynx normal Resp Effort & Inspection: normal respiratory effort Auscultation: clear to auscultation bilaterally Cardio Rate: regular rate Rhythm: regular rhythm GI Inspection: normal to inspection and non-distended Palpation: soft and No tender Skin General: no rashes or lesions noted Neuro General: patient alert, patient awake and moves all extremities Extrem General: capillary refill normal Course Orders Ordered: ED Orders 12/08/22 18:10 Respiratory Panel (Film Array) Stat Strep Grp A by PCR Rapid Stat 12/08/22 18:15 XR chest 1V Stat RT Consult Eval and Treat NOW 12/08/22 18:30 EKG-12 Lead Stat 12/08/22 18:35 BNP [NT-proBNP (BNP-Adult 18+)] Stat Blood Culture Stat Complete Blood Count AUTO DIFF Stat Comprehensive Metabolic Panel Stat Lactate (Lactic Acid) Stat Lipase Stat PTT Partial Thromboplastin Carlos Stat Procalcitonin Stat Prothrombin Time INR Stat Troponin & CK Cardiac Panel Stat Discontinued Medications Acetaminophen (Acetaminophen 325 Mg Tablet) 325 mg PO NOW ONE Stop: 12/08/22 18:18 Last Admin: 12/08/22 18:48 Dose: Not Given Documented By: AMV Sodium Chloride (Normal Saline 0.9%) 1,000 mls @ 1,000 mls/hr IV BOLUS ONE Stop: 12/08/22 19:14 Last Infusion: 12/08/22 20:06 Dose: 0 mls/hr Documented By: Admin: 12/08/22 18:46 Dose: 1,000 mls/hr Documented By: AMV Ibuprofen (Ibuprofen 400 Mg Tablet) 800 mg PO NOW ONE Stop: 12/08/22 18:20 Last Admin: 12/08/22 18:45 Dose: 800 mg Documented By: AMV Ondansetron HCl (Ondansetron 4 Mg/2 Ml Inj) 4 mg IV NOW PRN PRN Reason: Nausea And Vomiting Ondansetron HCl (Ondansetron 4 Mg Odt) 4 mg SL NOW PRN PRN Reason: Nausea And Vomiting Vital Signs Vital signs: Vital Signs - 8 hr 12/08/22 19:00 12/08/22 19:30 12/08/22 20:00 Temperature Pulse Rate 77 75 Respiratory Rate 23 22 Blood Pressure 146/74 H 140/73 145/81 H Pulse Oximetry 95 96 Oxygen Delivery Method Room Air Room Air 12/08/22 20:00 Temperature 100 F H Pulse Rate 83 Respiratory Rate 21 Blood Pressure 145/81 H Pulse Oximetry 95 Oxygen Delivery Method Room Air Medical Decision Making Lab Data Lab results reviewed: Yes I reviewed the patient's lab results. 12/08/22 18:35 12/08/22 18:35 Labs: Lab Results 12/08/22 12/08/22 12/08/22 Range/Units 18:10 18:10 18:35 WBC 6.9 (4.5-11.0) X10^3/uL RBC 4.72 (4.5-5.9) X10^6/uL Hgb 14.7 (13.5-17.5) g/dL Hct 42.9 (41-53) % MCV 90.9 (80-100) fL MCH 31.2 (26-34) PG MCHC 34.3 (30-36) % RDW 13.8 (11.6-14.8) % Plt Count 79 L (150-400) X10^3/uL Neut % (Auto) 79.5 H (50-75) % Lymph % (Auto) 7.5 L (25-40) % [place] % (Auto) 12.7 (3-14) % Eos % (Auto) 0.0 L (2-4) % Baso % (Auto) 0.3 (0-2) % Neut # (Auto) 5500 (9008-3302) /uL Lymph # (Auto) 500 L (0049-8043) /uL [place] # (Auto) 900 (0-900) /uL Eos # (Auto) 0 (0-450) /uL Baso # (Auto) 0 (0-100) /uL PT (10.1-12.7) SECONDS INR (0.9-1.3) APTT (26-36) SECONDS Sodium (137-145) mmol/L Potassium (3.4-5.1) mmol/L Chloride (98-107) mmol/L Carbon Dioxide (22-32) mmol/L BUN (9-20) mg/dL Creatinine (0.66-1.25) mg/dL Estimated GFR (>60) mL/min BUN/Creatinine Ratio (6-22) Glucose (80-110) mg/dL Lactate (0.7-2.1) mmol/L Calcium (8.4-10.2) mg/dL Total Bilirubin (0.2-1.3) mg/dL AST (17-59) IU/L ALT (<50) IU/L Alkaline Phosphatase (38-126) U/L Total Creatine Kinase (55-170) U/L Troponin I (0.01-0.034) ng/mL NT-Pro-B Natriuret Pep (<450) pg/mL Total Protein (6.3-8.2) g/dL Albumin (3.5-5.0) g/dL Globulin (1.7-4.1) g/dL Albumin/Globulin Ratio (1.0-2.8) Lipase (23-300) U/L Procalcitonin (<0.5) ng/mL Chlamy pneumoniae PCR Not detected (Not Detect) Adenovirus (PCR) Not detected (Not Detect) B. pertussis DNA (PCR) Not detected (Not Detecte) B.parapertussis DNA PCR Not detected (Not Detecte) Coronavirus OC43 (PCR) Not detected (Not Detect) Coronavirus HKU1 (PCR) Not detected (Not Detect) Coronavirus 229E (PCR) Not detected (Not Detect) SARS-CoV-2 (PCR) Detected H (Not Detecte) Coronavirus NL63 (PCR) Not detected (Not Detect) Human Metapneumovir PCR Not detected (Not Detect) Influenza Type A (PCR) Not detected (Not Detect) Influenza Type B (PCR) Not detected (Not Detect) M. pneumoniae (PCR) Not detected (Not Detect) Parainfluenza 1 (PCR) Not detected (Not Detect) Parainfluenza 2 (PCR) Not detected (Not Detect) Parainfluenza 3 (PCR) Not detected (Not Detect) Parainfluenza 4 (PCR) Not detected (Not Detect) RSV (PCR) Not detected (Not Detect) Entero/Rhino (PCR) Not detected (Not Detect) Group A Strep (PCR) Negative (Negative) 12/08/22 12/08/22 12/08/22 Range/Units 18:35 18:35 18:35 WBC (4.5-11.0) X10^3/uL RBC (4.5-5.9) X10^6/uL Hgb (13.5-17.5) g/dL Hct (41-53) % MCV (80-100) fL MCH (26-34) PG MCHC (30-36) % RDW (11.6-14.8) % Plt Count (150-400) X10^3/uL Neut % (Auto) (50-75) % Lymph % (Auto) (25-40) % [place] % (Auto) (3-14) % Eos % (Auto) (2-4) % Baso % (Auto) (0-2) % Neut # (Auto) (5308-4082) /uL Lymph # (Auto) (1300-0000) /uL [place] # (Auto) (0-900) /uL Eos # (Auto) (0-450) /uL Baso # (Auto) (0-100) /uL PT 12.8 H (10.1-12.7) SECONDS INR 1.1 (0.9-1.3) APTT 31 (26-36) SECONDS Sodium 131 L (137-145) mmol/L Potassium 4.5 (3.4-5.1) mmol/L Chloride 97 L (98-107) mmol/L Carbon Dioxide 26 (22-32) mmol/L BUN 18 (9-20) mg/dL Creatinine 0.89 (0.66-1.25) mg/dL Estimated GFR > 60 (>60) mL/min BUN/Creatinine Ratio 20.2 (6-22) Glucose 99 (80-110) mg/dL Lactate 1.2 (0.7-2.1) mmol/L Calcium 9.1 (8.4-10.2) mg/dL Total Bilirubin 1.1 (0.2-1.3) mg/dL AST 34 (17-59) IU/L ALT 26 (<50) IU/L Alkaline Phosphatase 70 (38-126) U/L Total Creatine Kinase 91 (55-170) U/L Troponin I 0.021 (0.01-0.034) ng/mL NT-Pro-B Natriuret Pep 1270 H (<450) pg/mL Total Protein 7.9 (6.3-8.2) g/dL Albumin 4.7 (3.5-5.0) g/dL Globulin 3.2 (1.7-4.1) g/dL Albumin/Globulin Ratio 1.5 (1.0-2.8) Lipase 54 (23-300) U/L Procalcitonin 0.09 (<0.5) ng/mL Chlamy pneumoniae PCR (Not Detect) Adenovirus (PCR) (Not Detect) B. pertussis DNA (PCR) (Not Detecte) B.parapertussis DNA PCR (Not Detecte) Coronavirus OC43 (PCR) (Not Detect) Coronavirus HKU1 (PCR) (Not Detect) Coronavirus 229E (PCR) (Not Detect) SARS-CoV-2 (PCR) (Not Detecte) Coronavirus NL63 (PCR) (Not Detect) Human Metapneumovir PCR (Not Detect) Influenza Type A (PCR) (Not Detect) Influenza Type B (PCR) (Not Detect) M. pneumoniae (PCR) (Not Detect) Parainfluenza 1 (PCR) (Not Detect) Parainfluenza 2 (PCR) (Not Detect) Parainfluenza 3 (PCR) (Not Detect) Parainfluenza 4 (PCR) (Not Detect) RSV (PCR) (Not Detect) Entero/Rhino (PCR) (Not Detect) Group A Strep (PCR) (Negative) Imaging Data Chest x-ray: Radiologist's Impression: PROCEDURE:? XR CHEST 1V ? INDICATIONS:? suspected sepsis ? TECHNIQUE:? One view of the chest was acquired.? ? COMPARISON:? [facility], , XR CHEST 2V, 07/16/2020, 14:29. ? FINDINGS:? ? Surgical changes and devices:? Cervical spine fusion hardware.? By plasties. ? Lungs and pleura:? Chronic asymmetric right hemidiaphragm elevation.? Given this, the visible lung garcia are clear.? No pneumothorax or significant pleural effusion. ? Mediastinum:? Mediastinal contours appear normal.? Heart size is normal.? ? Bones and chest wall:? No suspicious bony lesions.? Overlying soft tissues appear unremarkable.? ? IMPRESSION:? No acute cardiopulmonary disease.? ECG Data Attestation: I personally reviewed and interpreted this ECG as follows: Interpretation: Sinus rhythm Ventricular rate 80 First-degree AV block NE interval 244 milliseconds Normal QRS Normal QTC No ST T wave changes MDM Narrative Medical decision making narrative: Patient is COVID positive which does explain the majority of his symptoms that he arrives with today. He is alert oriented x3 and has a GCS of 15. Suspicion for TIA/CVA. Patient did receive Tylenol. His labs are otherwise unremarkable except for the positive COVID. He is not hypoxic. Not tachypneic. Clear lungs. Chest x-ray is unremarkable. I did discuss the positive COVID result with him and his . They were informed that he could take Tylenol and ibuprofen for any fevers or body aches. They were instructed to follow all current CDC guidelines with regard to quarantine. It were given return precautions. Expressed understanding and agreement. Discharge Plan Departure Patient Disposition: Home Clinical Impression: COVID-19 Instructions: COVID-19 Activity Restrictions/Additional Instructions: Continue to take all of your medications as directed. Follow all current CDC guidelines with regard to quarantine and COVID-19. Return to the emergency department for worsening breathing. You can take Tylenol and/or ibuprofen for any fevers or body aches. Prescriptions: No Action tramadol 50 mg tablet See Rx Instructions .ROUTE .COMPLEX Qty: 180 0RF Rx Instructions: Take 1 tablet by mouth every 6 hours as needed for naratriptan 2.5 mg tablet See Rx Instructions .ROUTE .COMPLEX Qty: 27 0RF Dose Instruction: TAKE ONE TABLET BY MOUTH NEEDED FOR MIGRAINE HEADACHE. MAY REPEAT AFTER TWO HOURS NEEDED Rx Instructions: TAKE ONE TABLET BY MOUTH NEEDED FOR MIGRAINE HEADACHE. MAY REPEAT AFTER TW O HOURS NEEDED pregabalin 200 mg capsule See Rx Instructions .ROUTE .COMPLEX Qty: 180 3RF Rx Instructions: Take 1 capsule by mouth twice daily levothyroxine 75 mcg tablet See Rx Instructions .ROUTE .COMPLEX Qty: 90 0RF Dose Instruction: TAKE ONE TABLET BY MOUTH ONE TIME DAILY Rx Instructions: TAKE ONE TABLET BY MOUTH ONE TIME DAILY rosuvastatin [Crestor] 20 mg tablet 20 mg PO DAILY Qty: 90 3RF methocarbamol 500 mg tablet 500 mg PO TID PRN (Reason: muscle spasm) Qty: 30 11RF omeprazole 10 mg Capsule,Delayed Release(Dr/Ec) 10 mg PO DAILY tadalafil [Cialis] 5 mg tablet 5 mg PO DAILY PRN (Reason: sexual activity) Qty: 60 3RF Rx Instructions: Administer 1 to 4 tablets p.o. 1-2 hours before sexual activity as needed. [place] 1,000 mcg suppository 1,000 mcg intra-urethral ONCE Qty: 6 5RF Rx Instructions: Insert 1 suppository daily as needed and as directed. Referrals: Eddie Garcia DO [Primary Care Provider] - Stand Alone Forms: Patient Portal/API
[2022-12-08 19:54] LABS: B. parapertussis Not Detected (Not Detecte); Bordetella pertussis Not Detected (Not Detecte); Chlamydophila pneumoniae Not Detected (Not Detect); Mycoplasma pneumoniae Not Detected (Not Detect); Parainfluenza Virus 3 Not Detected (Not Detect); Parainfluenza Virus 4 Not Detected (Not Detect); Respiratory Syncytial Virus Not Detected (Not Detect); SARS- CoV-2 Detected (Not Detecte)
[2022-12-08 20:00] VITALS: BP 145/81; PULSE 83; RESP 21; TEMP 37.7; O2SAT 95
--- NOTE | 2022-12-08 20:02 | PC.NURSE ---
This RN taking over care of pt. Pt is currently resting in bed with equal chest rise. Breathing is non-labored and pt is A&Ox4.
== END 2022-12-08 20:24 | disposition home or self-care (01) ==
PROVIDERS: Emergency Medicine; Emergency Provider Emergency Medicine; Family Provider Family Medicine; PCP Family Medicine
DX: U07.1 COVID-19 (principal); R39.9 Unspecified symptoms and signs involving the genitourinary system
CPT/HCPCS: 36415; 71045; 80053; 82550; 83605; 83690; 83880; 84145; 84484; 85025; 85610; 85730; 87040; 87086; 87633; 87651; 93005; 99284

== ENCOUNTER 2022-12-15 14:19 | Emergency (ER) | payer MEDICARE, OTHER, SELFPAY ==
[2020-06-19 22:47] VITALS: BMI 26.1
[2022-12-15] VITALS (16 sets, daily range): BP systolic 96–155; BP diastolic 57–89; PULSE 51–65; RESP 11–23; TEMP 36.6; O2SAT 96–99; BMI 25.5
--- NOTE | 2022-12-15 14:27 | DI.RAD.S_ITS ---
PROCEDURE: XR CHEST 1V INDICATIONS: chest pain TECHNIQUE: One view of the chest was acquired. COMPARISON: [facility], CR, XR CHEST 2V, 07/16/2020, 14:29. [facility], CR, XR CHEST 1V, 12/08/2022, 18:20. FINDINGS: Surgical changes and devices: None. Lungs and pleura: Right hemidiaphragm elevation. Bilateral lower lobe opacities may be infiltrate or atelectasis.. No pleural effusions or pneumothorax. Mediastinum: Mediastinal contours appear normal. Heart size is normal. Bones and chest wall: No suspicious bony lesions. Overlying soft tissues appear unremarkable. IMPRESSION: 1. Bilateral lower lobe opacities may be infiltrate or atelectasis. Dictated by: Seema Day M.D. on 12/15/2022 at 15:37 Approved by: Seema Day M.D. on 12/15/2022 at 15:39
[2022-12-15 14:43] LABS: Prothrombin Time 11.8 SECONDS (10.1-12.7)
[2022-12-15 14:46] LABS: Add Manual Diff / Slide Review NO; Alanine Aminotransferase 47 IU/L (<50); Albumin Globulin Ratio 1.4 (1.0-2.8); Alkaline Phosphatase 88 U/L (38-126); Aspartate Aminotransferase 60 IU/L (17-59); BUN Creatinine Ratio 21.8 (6-22); Basophils Absolute Auto 0 /uL (0-100); Basophils Percent Auto 0.2 % (0-2); Bilirubin Total 0.8 mg/dL (0.2-1.3); Blood Urea Nitrogen 19 mg/dL (9-20); Calcium 9.2 mg/dL (8.4-10.2); Carbon Dioxide 30 mmol/L (22-32); Chloride 99 mmol/L (98-107); Creatine Kinase 104 U/L (55-170); Eosinophils Absolute Auto 100 /uL (0-450); Estimated Glomerular Filt Rate > 60 mL/min (>60); Globulin 2.9 g/dL (1.7-4.1); Glucose 119 mg/dL (80-110); HEMOLYSIS < 15 (0-50); Hemoglobin 13.5 g/dL (13.5-17.5); Lipase 59 U/L (23-300); Lymphocytes Absolute Auto 1100 /uL (1100-4500); Lymphocytes Percent Auto 14.2 % (25-40); Magnesium 2.1 mg/dL (1.6-2.3); Mean Corpuscular HGB Conc 34.7 % (30-36); Mean Corpuscular Hemoglobin 31.4 PG (26-34); Mean Corpuscular Volume 90.7 fL (80-100); Monocytes Absolute Auto 700 /uL (0-900); Monocytes Percent Auto 8.9 % (3-14); Neutrophils Absolute Auto 5900 /uL (1500-7000); Neutrophils Percent Auto 75.7 % (50-75); PTT Partial Thromboplastin Tim 29 SECONDS (26-36); Platelet Count 131 X10^3/uL (150-400); Potassium 5.1 mmol/L (3.4-5.1); Red Cell Distribution Width 13.6 % (11.6-14.8); Sodium 135 mmol/L (137-145); Total Protein 6.9 g/dL (6.3-8.2); White Blood Cell Count 7.8 X10^3/uL (4.5-11.0)
[2022-12-15 14:58] LABS: Troponin I < 0.012 ng/mL (0.01-0.034)
[2022-12-15 15:44] LABS: Lactate (Lactic Acid) 1.5 mmol/L (0.7-2.1)
--- NOTE | 2022-12-15 15:48 | DI.CT.S_ITS ---
PROCEDURE: CT ANGIO CHEST PE PROTOCOL INDICATIONS: Hemoptysis TECHNIQUE: After the administration of intravenous contrast, 2 mm thick sections acquired from the pulmonary apices to the posterior costophrenic angles. 3-dimensional maximum intensity projection (MIP) coronal and sagittal reformats were then acquired through the thorax. For radiation dose reduction, the following was used: automated exposure control, adjustment of mA and/or kV according to patient size. COMPARISON: [facility], CT, CT ANGIO CHEST PE PROTOCOL, 06/19/2020, 22:43. FINDINGS: Image quality: Excellent. Pulmonary arteries: Pulmonary arteries are normal in size, and demonstrate no intraluminal filling defects to suggest central pulmonary embolism. Lungs and pleura: Lungs are clear. Unchanged cavitary lesion, right apex, current image 62/5, measuring 1.7 cm in maximum diameter, with unchanged focal wall thickening. Eventration of right hemidiaphragm with unchanged atelectasis versus scarring in the anterior right lung base (base of right middle lobe) there is a focal nodular density in the azygoesophageal recess region of the posterior medial right lung base, measuring 1.1 cm in diameter there is chronic scarring in the inferior lingula of the left lung.. No pleural effusions or pneumothorax. Central and peripheral airways are patent. Mediastinum: Heart size is normal, without pericardial effusion. Severe coronary artery calcifications. No mediastinal or hilar adenopathy. Thoracic aorta is normal in caliber and enhancement. Approximately 60% stenosis of the proximal left subclavian artery, secondary to soft plaque. This is mildly progressed compared to the previous study. Esophagus is normal in caliber, with small hiatal hernia. Bones and chest wall: No suspicious bony lesions. Ribs and thoracic spine appear intact throughout. Thyroid gland is unremarkable. No axillary or supraclavicular adenopathy. Abdomen: Visualized upper abdominal solid organs appear normal in the early arterial phase of enhancement. IMPRESSION: 1. No acute pulmonary emboli. 2. 1.1 cm nodular density, right lung base. 3. Severe coronary artery calcifications. 4. Interval progression of a proximal left subclavian artery stenosis secondary to soft plaque, now approximately 60%. 5. Unchanged small cavitary lesion, right upper lobe. 6. No acute pulmonary process. Comment: Recommend 3 month follow-up CT to re-evaluate the 1.1 cm nodular density in the right lung base. Dictated by: Tyree Chappell M.D. on 12/15/2022 at 16:24 Approved by: Tyree Chappell M.D. on 12/15/2022 at 16:32
[2022-12-15] MEDS: KETOROLAC 30 MG/ML VIAL 15 MG IV (15:57)
[2022-12-15] MEDS: SODIUM CHLORIDE 0.9% 1,000 ML 1000 ML IV (15:57)
[2022-12-15 16:00] LABS: Procalcitonin 0.05 ng/mL (<0.5)
--- NOTE | 2022-12-15 16:02 | ED_ITS ---
HPI - Dizziness General Chief Complaint: Dizziness Stated Complaint: COVID + Hypotensive Time Seen by Provider: 12/15/22 15:26 Source: patient and EMS Mode of arrival: EMS History of Present Illness HPI Narrative: Patient brought here by ambulance from home. For hypotension. is at bedside. Patient was seen here in the last week, diagnosed with COVID but states has been doing well. However, his primary care physician prescribed him tizanidine for neck pain. He was on methocarbamol. His 1st dose was 2 days ago he fell dizzy off balance and weak that lasted about 2 hours. His 2nd dose was today at 1:00 p.m.. He immediately felt very tired and dizzy and he left the lunch table at home to the living room. Blood pressure systolic was 60. EMS systolic blood pressure was 70. IV fluids was started by EMS prior to arrival. It has improved. Patient is feeling much better. Half-life of this medication is about 2-3 hours. Patient did experience some hemoptysis recently from his COVID. However no shortness of breath. Related Data Home Medications Medication Instructions Recorded Confirmed omeprazole 10 mg capsule,delayed 10 mg PO DAILY 06/19/20 12/08/22 release Previous Rx's Medication Instructions Recorded tadalafil 5 mg tablet (Cialis) 5 mg PO DAILY PRN sexual activity 04/30/21 #60 tabs tramadol 50 mg tablet See Rx Instructions .Route 01/20/22 .COMPLEX #180 tabs methocarbamol 500 mg tablet 500 mg PO TID PRN muscle spasm #30 05/05/22 tabs rosuvastatin 20 mg tablet (Crestor) 20 mg PO DAILY #90 tabs 05/05/22 alprostadil 1,000 mcg 1,000 mcg intra-urethral ONCE #6 ea 05/31/22 intra-urethral suppository ([place]) naratriptan 2.5 mg tablet See Rx Instructions .Route 06/07/22 .COMPLEX #27 tabs pregabalin 200 mg capsule See Rx Instructions .Route 08/20/22 .COMPLEX #180 caps levothyroxine 75 mcg tablet See Rx Instructions .Route 10/25/22 .COMPLEX #90 tabs Allergies Allergy/AdvReac Type Severity Reaction Status Date / Time clopidogrel [From Plavix] Allergy Verified 12/15/22 14:35 honey AdvReac Gastrointestinal Verified 12/15/22 14:35 Upset Review of Systems Review of Systems Narrative: GENERAL: negative chills, fatigue, malaise, fever, positive sweats. HEENT: negative sinus pain, ear pain, sore throat RESPIRATORY: negative dyspnea, cough CARDIOVASCULAR: negative chest pain, palpitations GASTROINTESTINAL: negative nausea, vomiting, abdominal pain : negative dysuria, frequency, hematuria MUSCULOSKELETAL: negative muscle or bony pain SKIN: negative rash, skin lesions NEUROLOGIC: negative weakness, numbness, positive dizziness ROS Unobtainable: All systems reviewed & are unremarkable except as noted in HPI and below Patient History Medical History Actinic keratosis Ankle pain (~2001) Carpal tunnel syndrome (~2014) Cervical somatic dysfunction Chronic migraine without aura, with status migrainosus Chronic neck and back pain Chronic right shoulder pain Cough Cranial somatic dysfunction Encounter for initial annual wellness visit (AWV) in Medicare patient Erectile dysfunction Fever Fibromyalgia (~2014) Fractures (~1983) GERD (gastroesophageal reflux disease) (~2011) Headache (~1995) Hearing loss Hemicrania continua Herpes (~1995) History of urinary incontinence (~2019) Hypothyroidism Hypothyroidism (acquired) Lower urinary tract symptoms (LUTS) Lumbar region somatic dysfunction Melanoma (~2009) Migraines (~1995) Pelvic somatic dysfunction Post-void dribbling Removal of staple Rib pain on right side Sacral region somatic dysfunction Scalp laceration Sciatic pain Segmental and somatic dysfunction of abdomen and other regions Segmental and somatic dysfunction of rib cage Shoulder pain (~1999) Skin cancer (~2012) Sleep apnea (~2014) Somatic dysfunction of lower extremity Stiffness of finger joint of right hand Thoracic region somatic dysfunction Tinnitus (~2009) Vasculogenic erectile dysfunction Surgical History Anesthesia History of carpal tunnel surgery History of fusion of cervical spine (~1995) History of fusion of cervical spine History of heart artery stent (~2012) History of hernia repair History of laminectomy (~2003) History of lumbar fusion (~2000) Pyloric stenosis (~1942) S/P TURP (status post transurethral resection of prostate) Family History Father CAD (coronary artery disease) Diabetes mellitus History of heart disease Hypertension Congestive heart failure Mother Congestive heart failure Sister Cancer Hypertension Hyperlipidemia Social History household members: friend(s) Smoking Status: Never smoker Smoking Status: Never smoker alcohol intake frequency: 0-2 drinks per day Substance Use Type: does not use Exam Narrative Exam Narrative: GENERAL: in no distress, not toxic not dyspneic HEAD: Normocephalic. EYES: Pupils equal round ENT: Mucous membranes moist. NECK: Trachea midline. CARDIOVASCULAR: Regular rate and rhythm without murmurs, patient is still slightly orthostatic on evaluation. However only 500 mL from EMS normal saline was given. RESPIRATORY: Clear to auscultation. Breath sounds equal bilaterally. No wheezes, rales, or rhonchi. GASTROINTESTINAL: Abdomen soft, non-tender EXTREMITIES: No gross deformities. BACK: No flank tenderness. NEURO: AOx4. SKIN: Warm and dry PSYCH: Not anxious, is cooperative Initial Vital Signs Initial Vital Signs: Vital Signs Temperature 97.9 F 12/15/22 14:15 Pulse Rate 55 L 12/15/22 14:15 Respiratory Rate 15 12/15/22 14:15 Blood Pressure 97/57 L 12/15/22 14:15 Pulse Oximetry 97 12/15/22 14:15 Oxygen Delivery Method Room Air 12/15/22 14:15 Course Orders Ordered: Discontinued Medications Sodium Chloride (Normal Saline 0.9%) 1,000 mls @ 1,000 mls/hr IV BOLUS ONE Stop: 12/15/22 16:47 Last Infusion: 12/15/22 18:08 Dose: 0 mls/hr Documented By: Admin: 12/15/22 15:57 Dose: 1,000 mls/hr Documented By: DARREN Ketorolac Tromethamine (Ketorolac 30 Mg/Ml Vial) 15 mg IV NOW ONE Stop: 12/15/22 15:49 Last Admin: 12/15/22 15:57 Dose: 15 mg Documented By: DARREN Vital Signs Vital signs: Vital Signs - 8 hr 12/15/22 14:15 12/15/22 14:56 12/15/22 15:38 Temperature 97.9 F Pulse Rate 55 L 57 L Pulse Rate [Orthostatic Lying] 65 Pulse Rate [Orthostatic Standing] 63 Respiratory Rate 15 18 Blood Pressure 97/57 L 110/64 Blood Pressure [Orthostatic Lying] 105/61 Blood Pressure [Orthostatic Standing] 96/58 L Pulse Oximetry 97 96 Oxygen Delivery Method Room Air 12/15/22 15:30 12/15/22 15:44 12/15/22 15:45 Temperature Pulse Rate 56 L 57 L Pulse Rate [Orthostatic Lying] Pulse Rate [Orthostatic Standing] Respiratory Rate 17 18 Blood Pressure 110/64 Blood Pressure [Orthostatic Lying] Blood Pressure [Orthostatic Standing] Pulse Oximetry 97 97 Oxygen Delivery Method 12/15/22 15:45 12/15/22 16:01 12/15/22 16:03 Temperature Pulse Rate 60 57 L Pulse Rate [Orthostatic Lying] Pulse Rate [Orthostatic Standing] Respiratory Rate 23 17 Blood Pressure 104/61 Blood Pressure [Orthostatic Lying] Blood Pressure [Orthostatic Standing] Pulse Oximetry 98 98 Oxygen Delivery Method 12/15/22 16:03 12/15/22 16:15 12/15/22 16:15 Temperature Pulse Rate 57 L Pulse Rate [Orthostatic Lying] Pulse Rate [Orthostatic Standing] Respiratory Rate 15 Blood Pressure 127/66 117/63 Blood Pressure [Orthostatic Lying] Blood Pressure [Orthostatic Standing] Pulse Oximetry 96 Oxygen Delivery Method 12/15/22 16:30 12/15/22 16:30 12/15/22 16:45 Temperature Pulse Rate 51 L 52 L Pulse Rate [Orthostatic Lying] Pulse Rate [Orthostatic Standing] Respiratory Rate 15 14 Blood Pressure 117/66 Blood Pressure [Orthostatic Lying] Blood Pressure [Orthostatic Standing] Pulse Oximetry 97 96 Oxygen Delivery Method 12/15/22 16:45 12/15/22 17:00 12/15/22 17:00 Temperature Pulse Rate 58 L Pulse Rate [Orthostatic Lying] Pulse Rate [Orthostatic Standing] Respiratory Rate 14 Blood Pressure 131/63 139/74 Blood Pressure [Orthostatic Lying] Blood Pressure [Orthostatic Standing] Pulse Oximetry 97 Oxygen Delivery Method 12/15/22 17:15 12/15/22 17:15 12/15/22 17:30 Temperature Pulse Rate 56 L Pulse Rate [Orthostatic Lying] Pulse Rate [Orthostatic Standing] Respiratory Rate 16 Blood Pressure 144/80 H 140/78 Blood Pressure [Orthostatic Lying] Blood Pressure [Orthostatic Standing] Pulse Oximetry 99 Oxygen Delivery Method 12/15/22 17:30 Temperature Pulse Rate 54 L Pulse Rate [Orthostatic Lying] Pulse Rate [Orthostatic Standing] Respiratory Rate 13 Blood Pressure Blood Pressure [Orthostatic Lying] Blood Pressure [Orthostatic Standing] Pulse Oximetry 98 Oxygen Delivery Method MDM - Dizziness Lab Data 12/15/22 14:00 12/15/22 14:00 Labs: Lab Results 12/15/22 12/15/22 12/15/22 Range/Units 14:00 14:00 14:00 WBC 7.8 (4.5-11.0) X10^3/uL RBC 4.30 L (4.5-5.9) X10^6/uL Hgb 13.5 (13.5-17.5) g/dL Hct 39.0 L (41-53) % MCV 90.7 (80-100) fL MCH 31.4 (26-34) PG MCHC 34.7 (30-36) % RDW 13.6 (11.6-14.8) % Plt Count 131 L (150-400) X10^3/uL Neut % (Auto) 75.7 H (50-75) % Lymph % (Auto) 14.2 L (25-40) % [place] % (Auto) 8.9 (3-14) % Eos % (Auto) 1.0 L (2-4) % Baso % (Auto) 0.2 (0-2) % Neut # (Auto) 5900 (7240-1658) /uL Lymph # (Auto) 1100 (9588-5113) /uL [place] # (Auto) 700 (0-900) /uL Eos # (Auto) 100 (0-450) /uL Baso # (Auto) 0 (0-100) /uL PT 11.8 (10.1-12.7) SECONDS INR 1.0 (0.9-1.3) APTT 29 (26-36) SECONDS Sodium 135 L (137-145) mmol/L Potassium 5.1 (3.4-5.1) mmol/L Chloride 99 (98-107) mmol/L Carbon Dioxide 30 (22-32) mmol/L BUN 19 (9-20) mg/dL Creatinine 0.87 (0.66-1.25) mg/dL Estimated GFR > 60 (>60) mL/min BUN/Creatinine Ratio 21.8 (6-22) Glucose 119 H (80-110) mg/dL Lactate (0.7-2.1) mmol/L Calcium 9.2 (8.4-10.2) mg/dL Magnesium 2.1 (1.6-2.3) mg/dL Total Bilirubin 0.8 (0.2-1.3) mg/dL AST 60 H (17-59) IU/L ALT 47 (<50) IU/L Alkaline Phosphatase 88 (38-126) U/L Total Creatine Kinase 104 (55-170) U/L Troponin I < 0.012 (0.01-0.034) ng/mL Total Protein 6.9 (6.3-8.2) g/dL Albumin 4.0 (3.5-5.0) g/dL Globulin 2.9 (1.7-4.1) g/dL Albumin/Globulin Ratio 1.4 (1.0-2.8) Lipase 59 (23-300) U/L Procalcitonin (<0.5) ng/mL 12/15/22 12/15/22 Range/Units 14:00 14:00 WBC (4.5-11.0) X10^3/uL RBC (4.5-5.9) X10^6/uL Hgb (13.5-17.5) g/dL Hct (41-53) % MCV (80-100) fL MCH (26-34) PG MCHC (30-36) % RDW (11.6-14.8) % Plt Count (150-400) X10^3/uL Neut % (Auto) (50-75) % Lymph % (Auto) (25-40) % [place] % (Auto) (3-14) % Eos % (Auto) (2-4) % Baso % (Auto) (0-2) % Neut # (Auto) (2220-1620) /uL Lymph # (Auto) (8011-7765) /uL [place] # (Auto) (0-900) /uL Eos # (Auto) (0-450) /uL Baso # (Auto) (0-100) /uL PT (10.1-12.7) SECONDS INR (0.9-1.3) APTT (26-36) SECONDS Sodium (137-145) mmol/L Potassium (3.4-5.1) mmol/L Chloride (98-107) mmol/L Carbon Dioxide (22-32) mmol/L BUN (9-20) mg/dL Creatinine (0.66-1.25) mg/dL Estimated GFR (>60) mL/min BUN/Creatinine Ratio (6-22) Glucose (80-110) mg/dL Lactate 1.5 (0.7-2.1) mmol/L Calcium (8.4-10.2) mg/dL Magnesium (1.6-2.3) mg/dL Total Bilirubin (0.2-1.3) mg/dL AST (17-59) IU/L ALT (<50) IU/L Alkaline Phosphatase (38-126) U/L Total Creatine Kinase (55-170) U/L Troponin I (0.01-0.034) ng/mL Total Protein (6.3-8.2) g/dL Albumin (3.5-5.0) g/dL Globulin (1.7-4.1) g/dL Albumin/Globulin Ratio (1.0-2.8) Lipase (23-300) U/L Procalcitonin 0.05 (<0.5) ng/mL Imaging Data Chest x-ray: Radiologist's Impression: [address] [address] XRay Report Signed Patient: Alfredo Hightower MR#: [id number] : 1945 Acct:[id number] Age/Sex: 77 / M Date of Service: 12/15/22 Loc: ED Accession Number: [id number] ?? Procedure: XR chest 1V Ordering Provider: Andrés Zelaya MD PROCEDURE:? XR CHEST 1V ? INDICATIONS:? chest pain ? TECHNIQUE:? One view of the chest was acquired.? ? COMPARISON:? [facility], CR, XR CHEST 2V, 07/16/2020, 14:29.? [facility], CR, XR CHEST 1V, 12/08/2022, 18:20. ? FINDINGS:? ? Surgical changes and devices:? None.? ? Lungs and pleura:? Right hemidiaphragm elevation.? Bilateral lower lobe op acities may be infiltrate or atelectasis..? No pleural effusions or pneumothorax.? ? Mediastinum:? Mediastinal contours appear normal.? Heart size is normal.? ? Bones and chest wall:? No suspicious bony lesions.? Overlying soft tissues appear unremarkable.? ? IMPRESSION:? ? 1. Bilateral lower lobe opacities may be infiltrate or atelectasis. ? ? ? Dictated by: Seema Day M.D. on 12/15/2022 at 15:37 ? ? Approved by: Seema Day M.D. on 12/15/2022 at 15:39 ? MDM Narrative Medical decision making narrative: Patient brought here by ambulance from home. For hypotension. is at bedside. Patient was seen here in the last week, diagnosed with COVID but states has been doing well. However, his primary care physician prescribed him tizanidine for neck pain. He was on methocarbamol. His 1st dose was 2 days ago he fell dizzy off balance and weak that lasted about 2 hours. His 2nd dose was today at 1:00 p.m.. He immediately felt very tired and dizzy and he left the lunch table at home to the living room. Blood pressure systolic was 60. EMS systolic blood pressure was 70. IV fluids was started by EMS prior to arrival. It has improved. Patient is feeling much better. Half-life of this medication is about 2-3 hours. Patient did experience some hemoptysis recently from his COVID. However no shortness of breath. Pill counting was done by nurse here on prescribed tizanidine, 28 of 30 pills remain After history and exam CBC CMP lactic acid procalcitonin troponin EKG chest x- ray CT PE protocol normal saline boluses [facility] CC: Dizziness weakness low blood pressure Complicating co-morbidities: Recent new muscle relaxer/recent COVID Data collected from: Patient Medical records reviewed: ER visit here December 08, 2022 Differential considered: Includes but not limited to dehydration sepsis medication reaction Exam documented above, pertinent findings include: Orthostatic noted Lab Test results independently reviewed as above. Pertinent findings: Hemoglobin 13.5 hematocrit 39 WBC 7.8 sodium 135 potassium 5.1 BUN 19 creatinine 0.87 GFR greater than 60 bicarb 30 AST 60 ALT 47 troponin less than 0.012 procalcitonin 0.05 lactic acid 1.5 Independently reviewed EKG sinus bradycardia rate [address] elevation or depression. Patient and state that is his baseline heart rate Imaging studies independently reviewed: Chest x-ray bilateral lower lobar opacities may be infiltrate versus atelectasis Consultations: 5:00 p.m.. Spoke with cardiology Dr. Winn, regarding coronary artery findings and subclavian artery findings, these are likely incidental. Patient can follow up with primary care and his gyroscopic instrument mechanic. Treatments: 2 L normal saline Re-evaluations: 5:50 p.m.. Reviewed results with patient and . Regarding CT imaging findings are incidental. No PE but coronary arteries and subclavian artery on the left are incidental findings. Patient feeling much better now. Blood pressure has improved. 140/78 pulse 54. They desire discharge home. Return precautions reviewed with them. Patient does have a gyroscopic instrument mechanic. He does have a history of cardiac stent. His gyroscopic instrument mechanic Dr. Quevedo with [facility]. Discussion: Appropriate for discharge home. Patient has 2 identical symptoms/episodes after taking tizanidine. This is likely not cardiac in origin. Not sepsis. Patient improved with IV fluids. I did review with cardiology services as well regarding incidental findings on coronary arteries. Patient can follow up outpatient with his gyroscopic instrument mechanic. Return precautions reviewed with patient and . They desire discharge home. Nontoxic. Diagnosis: Adverse medication reaction Discharge Plan Departure Patient Disposition: Home Clinical Impression: Medication adverse effect Instructions: DI for Adverse Drug Reaction -- Other Activity Restrictions/Additional Instructions: Please stop taking tizanidine, this has caused you to feel weak and it lowers her blood pressure. Please call family doctor to change this medication. Return if worse if any questions or concerns. CT imaging of your chest does show some incidental findings with the artery of your subclavian vein on the left side as well as the arteries around your heart. Please do follow up with your gyroscopic instrument mechanic regarding these findings as well as your family doctor. Again, these are incidental findings. Return if worse if any questions or conc erns or if any chest pain or shortness of breath. Prescriptions: No Action tramadol 50 mg tablet See Rx Instructions .ROUTE .COMPLEX Qty: 180 0RF Rx Instructions: Take 1 tablet by mouth every 6 hours as needed for naratriptan 2.5 mg tablet See Rx Instructions .ROUTE .COMPLEX Qty: 27 0RF Dose Instruction: TAKE ONE TABLET BY MOUTH NEEDED FOR MIGRAINE HEADACHE. MAY REPEAT AFTER TWO HOURS NEEDED Rx Instructions: TAKE ONE TABLET BY MOUTH NEEDED FOR MIGRAINE HEADACHE. MAY REPEAT AFTER TWO HOURS NEEDED pregabalin 200 mg capsule See Rx Instructions .ROUTE .COMPLEX Qty: 180 3RF Rx Instructions: Take 1 capsule by mouth twice daily levothyroxine 75 mcg tablet See Rx Instructions .ROUTE .COMPLEX Qty: 90 0RF Dose Instruction: TAKE ONE TABLET BY MOUTH ONE TIME DAILY Rx Instructions: TAKE ONE TABLET BY MOUTH ONE TIME DAILY rosuvastatin [Crestor] 20 mg tablet 20 mg PO DAILY Qty: 90 3RF methocarbamol 500 mg tablet 500 mg PO TID PRN (Reason: muscle spasm) Qty: 30 11RF omeprazole 10 mg Capsule,Delayed Release(Dr/Ec) 10 mg PO DAILY tadalafil [Cialis] 5 mg tablet 5 mg PO DAILY PRN (Reason: sexual activity) Qty: 60 3RF Rx Instructions: Administer 1 to 4 tablets p.o. 1-2 hours before sexual activity as needed. [place] 1,000 mcg suppository 1,000 mcg intra-urethral ONCE Qty: 6 5RF Rx Instructions: Insert 1 suppository daily as needed and as directed. Referrals: Eddie Garcia DO [Primary Care Provider] - Stand Alone Forms: Patient Portal/API
== END 2022-12-15 18:15 | disposition home or self-care (01) ==
PROVIDERS: Emergency Provider Emergency Medicine; Family Provider Family Medicine; PCP Family Medicine
DX: I95.9 Hypotension, unspecified (principal); R07.9 Chest pain, unspecified; T50.905A Adverse effect of unspecified drugs, medicaments and biological substances, initial encounter; U07.1 COVID-19
CPT/HCPCS: 71045; 71275; 80053; 82550; 83605; 83690; 83735; 84145; 84484; 85025; 85610; 85730; 93005; 96361; 96374; 99284; J1885; Q9967

== ENCOUNTER → 2023-02-24 10:45 | Outpatient (CLI) | payer MEDICARE, OTHER, SELFPAY ==
[2022-12-29 14:02] VITALS: BMI 26.1
--- NOTE | 2023-02-24 | DI.MRI.S_ITS ---
PROCEDURE: MR THORACIC SPINE WO CON INDICATIONS: RADICULOPATHY IN LUMBAR,THORACIC AND CERVICAL TECHNIQUE: Noncontrast sagittal T1 spine echo and T2 fast spin echo, sagittal STIR, and T2 fast spin echo through the thoracic spine. COMPARISON: [place], [place], PET/CT WHOLE BODY EXTENDED, 01/19/2017, 11:17. [place], CO BONE SCAN WHOLE BODY, 03/30/2021, 12:27. [facility], CT, CT ANGIO CHEST PE PROTOCOL, 12/15/2022, 16:00. [facility] [place], CR, XR THORACIC SPINE 2 VIEWS, 06/17/2017, 14:50. [facility], MR, MR CERVICAL SPINE WO CON, 02/24/2023, 10:55. [facility], MR, MR LUMBAR SPINE WO CON, 02/24/2023, 10:55. [facility], , T-SPINE WITHOUT CONTRAST, 12/21/2016, 11:05. FINDINGS: Image quality: Excellent. Alignment and Curvature: Accentuated thoracic kyphosis is seen. No focal AP alignment abnormality is seen. Bone Marrow: Marrow is of normal overall signal. No acute vertebral body compression fractures. Mild chronic anterior wedge deformities can be seen at several levels, including T3, T4, T5, T11, T12, and L1. Within the T8 level, there is again seen a stippled focus3 that is hypointense on T1 weighted imaging and hyperintense on T2 weighted and STIR imaging. This is similar to 2017. Spinal Cord: Visualized spinal cord is normal in size and signal. Paraspinous Soft Tissues: No paravertebral masses. Miscellaneous: Degenerative changes are seen throughout. A few levels of mild neural foraminal narrowing can be seen within the mid thoracic spine. No significant central canal narrowing can be seen. IMPRESSION: Generalized degenerative changes are seen, with several levels of mild neural foraminal narrowing in the midthoracic spine. No significant central canal narrowing is seen. There is a stable focus of abnormal signal again seen within the T8 vertebral body. This is nonspecific, although differential diagnosis includes atypical vertebral body hemangioma. The lack of abnormal signal on prior bone scan and PET scan argues for a benign diagnosis. Additional findings: Accentuated thoracic kyphosis Dictated by: Brent Brian M.D. on 02/24/2023 at 17:32 Approved by: Brent Brian M.D. on 02/24/2023 at 17:40
--- NOTE | 2023-02-24 | DI.MRI.S_ITS ---
PROCEDURE: MR CERVICAL SPINE WO CON INDICATIONS: RADICULOPATHY IN LUMBAR,THORACIC AND CERVICAL TECHNIQUE: Noncontrast sagittal T1 spin echo and T2 fast spin echo, sagittal STIR, foraminal oblique sagittal T2 fast spin echo, and axial gradient echo or T2 fast spin echo through the cervical spine. COMPARISON: [facility], MR, MR CERVICAL SPINE WO CON, 04/07/2018, 6:31. [facility], CR, XR CERVICAL SPINE 2V OR 3V, 05/12/2022, 7:43. [facility], MR, MR LUMBAR SPINE WO CON, 02/24/2023, 10:55. [facility], MR, MR THORACIC SPINE WO CON, 02/24/2023, 10:55. FINDINGS: Image quality: There is artifact associated with the metallic hardware. This examination is limited by involuntary motion artifact. Alignment and Curvature: There is minimal anterolisthesis seen at the C7-T1 level. Bone Marrow: Marrow demonstrates normal overall signal. Spinal Cord: Visualized spinal cord has normal size and signal. No cerebellar tonsillar herniation. Paraspinous Soft Tissues: No paravertebral masses. Prevertebral soft tissues are normal in thickness. Extensive anterior fixation hardware can be seen C3 through C6. Disc spacers are seen throughout the fused region. There is vertebral body fusion seen at C6-C7. C2-C3: The disc height is well-preserved. Loss of disc signal is seen at this level. Moderate disc osteophyte complex is seen, with a mild central disc osteophyte protrusion. There is at least moderate facet hypertrophy seen, left worse than right. There is moderate to severe right-sided and at least moderate left-sided neural foraminal narrowing. Moderate to severe central canal narrowing is seen, with associated ventral cord flattening. These degenerative changes are worse than in 2018. C3-C4: Moderate generalized disc osteophyte complex is seen. No moderate facet there is moderate right-sided and mild left-sided facet hypertrophy. [id number] central canal narrowing is seen. When comparison is made with the prior images, these findings are similar. C4-C5: Moderate generalized disc osteophyte complex is seen. Moderate facet joint hypertrophy is seen. Moderate bilateral neural foraminal narrowing is seen. Mild central canal narrowing is seen. When comparison is made with the prior images, these findings are similar. C5-C6: Evaluation of this level is limited by susceptibility artifact. At least moderate disc osteophyte complex is seen, which is eccentric to the left. At least moderate facet hypertrophy is seen. Moderate to severe bilateral neural foraminal narrowing can be seen. Mild central canal narrowing is seen. No significant change from the prior. C6-C7: A mild degree of generalized disc osteophyte complex is seen. Moderate facet joint hypertrophy is seen. At least moderate bilateral neural foraminal narrowing can be seen. No significant central canal narrowing is seen. When comparison is made with the prior images, these findings are similar. C7-T1: The disc height is well-preserved. Loss of disc signal is seen at this level. A mild degree of generalized disc osteophyte complex is seen. There is at least moderate right-sided and moderate left-sided facet hypertrophy. There is moderate to severe right-sided and at least moderate left-sided neural foraminal narrowing. No significant central canal narrowing is seen. When comparison is made with the prior images, these findings are similar. IMPRESSION: Extensive postoperative changes can be seen anteriorly. Multiple levels of degenerative change can be seen, which are similar to 2018. Dictated by: Brent Brian M.D. on 02/24/2023 at 17:47 Approved by: Brent Brian M.D. on 02/24/2023 at 17:52
--- NOTE | 2023-02-24 | DI.MRI.S_ITS ---
PROCEDURE: MR LUMBAR SPINE WO CON INDICATIONS: RADICULOPATHY IN LUMBAR,THORACIC AND CERVICAL TECHNIQUE: Noncontrast sagittal T1 spin echo and T2 fast echo, sagittal STIR, and T2 fast spin echo through the lumbar spine. In cases with scoliosis, additional coronal T2 fast spin echo may be performed. COMPARISON: [facility], CT, CT PELVIS W CON, 03/30/2021, 10:59. [facility], MR, MR LUMBAR SPINE WO CON, 05/31/2019, 17:36. [facility], MR, MR LUMBAR SPINE WO CON, 03/27/2018, 11:25. [facility], MR, MR THORACIC SPINE WO CON, 02/24/2023, 10:55. [facility], MR, MR CERVICAL SPINE WO CON, 02/24/2023, 10:55. [facility], [place], [place] BONE SCAN WHOLE BODY, 03/30/2021, 12:27. [facility], MR, MR LUMBAR SPINE WO CON, 01/31/2021, 15:17. FINDINGS: Image quality: There is artifact associated with the metallic hardware. This examination is limited by involuntary motion artifact. Alignment and Curvature: Grade 1 anterolisthesis can be seen at L4-L5. Pars defects are present, which are much better demonstrated on prior CT. Bone Marrow: Marrow is of normal overall signal. No acute vertebral body compression fractures. Remote anterior wedge deformities can be seen at T12 and L1. Spinal Cord: Conus medullaris terminates at the L1 level. Visualized cord demonstrates normal signal and size. Paraspinous Soft Tissues: No paravertebral masses. T12-L1: The disc height is well-preserved. Loss of disc signal is seen at this level. Mild generalized disc bulge is seen. No significant neural foraminal narrowing is seen. Mild central canal narrowing is seen. When comparison is made with the prior images, these findings are similar. L1-L2: The disc height is well-preserved. Loss of disc signal is seen at this level. Moderate generalized disc bulge is seen. Moderate facet joint hypertrophy is seen. Moderate bilateral neural foraminal narrowing can be seen, right worse than left. Mild central canal narrowing is seen. When comparison is made with the prior images, these findings are similar. L2-L3: The disc height is well-preserved. Loss of disc signal is seen at this level. Moderate generalized disc bulge is seen. There is a superimposed central disc protrusion. There has been removal of portions of the posterior elements. There is moderate to severe bilateral neural foraminal narrowing seen, with an associated a degree of compression seen upon the exiting nerve roots. The central canal is patent. When comparison is made with the prior images, these findings are similar. L3-L4: Postoperative change is seen at this level, with bilateral pedicle screws and vertical fixation rods. There is a disc spacer seen at this level. There has been removal of portions of the posterior elements. Moderate generalized disc bulge is seen. Moderate facet joint hypertrophy is seen. There is at least moderate right-sided and moderate left-sided neural foraminal narrowing. The central canal is widely patent. When comparison is made with the prior images, these findings are similar. L4-L5: Mild loss of disc height is seen. Loss of disc signal is seen. Moderate generalized disc bulge is seen. There is a superimposed central disc protrusion. Prominent facet hypertrophy is seen. There is at least moderate right-sided and moderate to severe left-sided neural foraminal narrowing. There is a degree of compression seen upon the exiting nerve roots. Moderate central canal narrowing is seen. When comparison is made with the prior images, these findings are similar. L5-S1: The disc height is well-preserved. Loss of disc signal is seen at this level. Mild to moderate disc bulge is seen. Moderate facet joint hypertrophy is seen. There is moderate left-sided and mild right-sided neural foraminal narrowing. No significant central canal narrowing is seen. When comparison is made with the prior images, these findings are similar. Prior fusion of the right sacroiliac joint can be seen. IMPRESSION: Multiple levels of significant lumbar spine degenerative change can be seen, which are not significantly progressed compared to 2020. Postoperative changes are seen, including fixation hardware posteriorly at L3-L4. Remote, stable T12 and L1 anterior wedge deformities. Dictated by: Brent Brian M.D. on 02/24/2023 at 17:40 Approved by: Brent Brian M.D. on 02/24/2023 at 17:46
== END ==
PROVIDERS: Family Provider Family Medicine; PCP Family Medicine; Referring Provider Neurological Surgery; Visit Provider Neurological Surgery
DX: M43.07 Spondylolysis, lumbosacral region (principal); M47.22 Other spondylosis with radiculopathy, cervical region; M48.04 Spinal stenosis, thoracic region; M40.294 Other kyphosis, thoracic region; Z98.890 Other specified postprocedural states; M48.55XA Collapsed vertebra, not elsewhere classified, thoracolumbar region, initial encounter for fracture
CPT/HCPCS: 72141; 72146; 72148

== ENCOUNTER → 2023-04-05 11:49 | Outpatient (CLI) | payer MEDICARE, OTHER, SELFPAY ==
[2022-12-29 14:02] VITALS: BMI 26.1
--- NOTE | 2023-04-05 11:50 | DI.CT.S_ITS ---
PROCEDURE: CT CHEST WO CON INDICATIONS: f/u lung nodule TECHNIQUE: Noncontrast 2.0-2.5 mm thick sections acquired from the pulmonary apices to the posterior costophrenic angles. 7 mm thick axial MIP and 5 mm coronal and sagittal reformats were then acquired. A low radiation dose technique was utilized. COMPARISON: [facility], CT, CT ANGIO CHEST PE PROTOCOL, 12/15/2022, 16:00. [facility], MR, MR THORACIC SPINE WO CON, 02/24/2023, 10:55. FINDINGS: Image quality: Diagnostic, given the low radiation dose technique. Lungs and pleura: The previously seen nodule within the medial right costophrenic angle has resolved. No suspicious pulmonary nodules are seen. There is wispy opacity with cavitation seen involving the superolateral right upper lobe, as on series 3, image 63, which is similar to the prior examination. Mediastinum: There is advanced coronary artery calcification. Heart size is normal. No pericardial effusion. No mediastinal adenopathy by size criteria. Thoracic aorta and central pulmonary arteries are normal in size. Esophagus is normal in caliber. There is a hiatal hernia. Bones and chest wall: No suspicious bony lesions. No acute fractures are seen. Mild chronic anterior wedge deformities can be seen within the thoracic spine, with the worst seen at the T12 level, stable. Degenerative changes are seen throughout. No axillary or supraclavicular adenopathy by size criteria. Thyroid gland demonstrates no significant noncontrast abnormality. Abdomen: Visualized upper abdomen solid organs and bowel loops appear normal in the absence of contrast. IMPRESSION: The previously seen nodule involving the right medial costophrenic angle is no longer seen. Likely scarring again seen involving the right upper lobe, stable. Additional findings: Advanced coronary artery calcification Small hiatal hernia Multiple levels of stable mild thoracic spine anterior wedge deformities Fleischner Society criteria for SOLID lung nodule followup. Nodule size (mm)Low-risk patientHigh-risk patient<6 (single or multiple)No routine followup.Optional CT at 12 months. 6-8 (single or multiple)CT at 6-12 months, then optional CT at 18-24 mo.CT at 6-12 months, then CT at 18-24 months. >8 (single)CT at 3 months, PET-CT, or biopsy. Same as for low-risk pts. >8 (multiple)CT at 3-6 months, then optional CT at 18-24 mo.CT at 3-6 months, then CT at 18-24 months. Fleischner Society criteria for SUB-SOLID lung nodule followup. Solitary pure ground-glass nodules<6 mm (ground glass or part solid)No followup needed. 6 mm or larger (ground glass)CT at 6-12 months to confirm persistence, then CT every 2 years until 5 years.6 mm or larger (part solid)CT at 3-6 months to confirm persistence, then annual CT until 5 years if unchanged and solid component remains <6 mm. Multiple sub-solid nodules<6 mmCT at 3-6 months, then CT consider at 2 & 4 years for high risk patients. [address] at 3-6 months. Subsequent management based on most suspicious lesions. Recommendations do not apply to lung cancer screening, patients with immunosuppression, or patients with known primary cancer. Dictated by: Brent Brian M.D. on 04/05/2023 at 16:30 Approved by: Brent Brian M.D. on 04/05/2023 at 16:34
== END ==
PROVIDERS: Family Provider Family Medicine; PCP Family Medicine; Referring Provider Family Medicine; Visit Provider Family Medicine
DX: R91.1 Solitary pulmonary nodule (principal)
CPT/HCPCS: 71250

== ENCOUNTER → 2023-06-17 11:33 | Outpatient (CLI) | payer MEDICARE, OTHER, SELFPAY ==
[2022-12-29 14:02] VITALS: BMI 26.1
[2023-06-17 13:40] LABS: Alanine Aminotransferase 28 IU/L (<50); Albumin 4.4 g/dL (3.5-5.0); Albumin Globulin Ratio 1.4 (1.0-2.8); Alkaline Phosphatase 66 U/L (38-126); Aspartate Aminotransferase 45 IU/L (17-59); BUN Creatinine Ratio 17.7 (6-22); Bilirubin Total 1.3 mg/dL (0.2-1.3); Blood Urea Nitrogen 17 mg/dL (9-20); Calcium 9.7 mg/dL (8.4-10.2); Carbon Dioxide 30 mmol/L (22-32); Chloride 102 mmol/L (98-107); Estimated Glomerular Filt Rate > 60 mL/min (>60); Globulin 3.2 g/dL (1.7-4.1); Glucose 87 mg/dL (80-110); HEMOLYSIS < 15 (0-50); Potassium 4.7 mmol/L (3.4-5.1); Sodium 138 mmol/L (137-145); Total Protein 7.6 g/dL (6.3-8.2)
[2023-06-17 14:08] LABS: TSH w/ Reflex to FT4 1.43 uIU/mL (0.47-4.68)
== END ==
PROVIDERS: Family Provider Family Medicine; PCP Family Medicine; Referring Provider Family Medicine; Visit Provider Family Medicine
DX: Z00.00 Encounter for general adult medical examination without abnormal findings (principal); E03.9 Hypothyroidism, unspecified
CPT/HCPCS: 36415; 80053; 84443

== ENCOUNTER → 2023-06-20 10:02 | Outpatient (CLI) | payer MEDICARE, OTHER, SELFPAY ==
[2022-12-29 14:02] VITALS: BMI 26.1
[2023-06-20 11:10] LABS: Cholesterol 157 mg/dL (140-199); HDL Cholesterol 45 mg/dL (40-60); LDL Cholesterol Calculated 75 mg/dL (<100); Triglycerides 183 mg/dL (35-150)
== END ==
LOC: LAB 10:03
PROVIDERS: Family Provider Family Medicine; PCP Family Medicine; Referring Provider Internal Medicine Cardiovascular Disease; Visit Provider Internal Medicine Cardiovascular Disease
DX: I25.10 Atherosclerotic heart disease of native coronary artery without angina pectoris (principal)
CPT/HCPCS: 36415; 80061

== ENCOUNTER → 2023-06-27 11:54 | Outpatient (CLI) | payer MEDICARE, OTHER, SELFPAY ==
[2022-12-29 14:02] VITALS: BMI 26.1
--- NOTE | 2023-06-27 11:56 | DI.RAD.S_ITS ---
PROCEDURE: XR LUMBAR SPINE MIN 4V INDICATIONS: BACK PAIN TECHNIQUE: 5 views of the lumbar spine were acquired, including bilateral oblique views. COMPARISON: [facility], , XR LUMBAR SPINE 2-3V, 01/30/2019, 11:52. FINDINGS: Bones: Decompressive laminectomies noted at L3, L4 and L5 with interbody fusion and posterior avelino and screw instrumentation at L 3 4. No evidence of hardware failure or loosening. Five vertebral body segments present. There has been interval placement of right SI joint arthrodesis with threaded screw instrumentation. Both oblique images unremarkable without pars defect. Grade 2 anterior spondylolisthesis L4-5. T12 and L1 wedge-shaped compression fractures, stable from 2019 Soft tissues: Overlying bowel gas pattern is normal. No suspicious soft tissue calcifications. Oblique images: No pars defects. IMPRESSION: L3-4 instrumented interbody fusion. Persistent lucency noted along the superior and inferior aspects of the graft Grade 2 anterior spondylolisthesis L4-5 has increased in the interval. 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 on 06/27/2023 at 14:25
== END ==
PROVIDERS: Family Provider Family Medicine; PCP Family Medicine; Referring Provider Physical Medicine & Rehabilitation; Visit Provider Physical Medicine & Rehabilitation
DX: M51.16 Intervertebral disc disorders with radiculopathy, lumbar region (principal); M99.03 Segmental and somatic dysfunction of lumbar region; Z98.1 Arthrodesis status; M43.16 Spondylolisthesis, lumbar region; M47.26 Other spondylosis with radiculopathy, lumbar region
CPT/HCPCS: 72110

== ENCOUNTER → 2023-09-01 11:59 | Outpatient (CLI) | payer MEDICARE, OTHER, SELFPAY ==
[2022-12-29 14:02] VITALS: BMI 26.1
--- NOTE | 2023-09-01 | DI.US.S_ITS ---
PROCEDURE: US PERIPH VENOUS LOW EXTREM LT INDICATIONS: Localized swelling, mass and lump, lower limb TECHNIQUE: Real-time imaging, as well as color and pulse Doppler interrogation, were performed of the lower extremity deep veins from the inguinal ligament to the popliteal fossa, with documentation of the visualized calf veins. COMPARISON: None. FINDINGS: The common femoral, femoral, popliteal, and the visualized calf veins are normally compressible, and free of intraluminal thrombus. Color and pulse Doppler demonstrate normal phasic intraluminal flow. There is normal augmentation response to distal compression maneuver. IMPRESSION: No findings of lower extremity deep venous thrombosis. Dictated by: Sahara Recinos M.D. on 09/01/2023 at 14:46 Approved by: Sahara Recinos M.D. on 09/01/2023 at 14:47
== END ==
PROVIDERS: Family Provider Family Medicine; PCP Family Medicine; Referring Provider Neurological Surgery; Visit Provider Neurological Surgery
DX: R22.43 Localized swelling, mass and lump, lower limb, bilateral (principal); Z98.1 Arthrodesis status
CPT/HCPCS: 93971

== ENCOUNTER → 2023-10-27 09:49 | Outpatient (CLI) | payer MEDICARE, OTHER, SELFPAY ==
[2022-12-29 14:02] VITALS: BMI 26.1
[2023-10-27 10:48] LABS: Add Manual Diff / Slide Review NO; Basophils Absolute Auto 0 /uL (0-100); Basophils Percent Auto 0.3 % (0-2); Eosinophils Absolute Auto 200 /uL (0-450); Eosinophils Percent Auto 2.5 % (2-4); Hematocrit 41.9 % (41-53); Hemoglobin 14.2 g/dL (13.5-17.5); Lymphocytes Absolute Auto 1100 /uL (1100-4500); Lymphocytes Percent Auto 17.2 % (25-40); Mean Corpuscular HGB Conc 33.9 % (30-36); Mean Corpuscular Hemoglobin 30.5 PG (26-34); Mean Corpuscular Volume 90.2 fL (80-100); Monocytes Absolute Auto 600 /uL (0-900); Monocytes Percent Auto 9.4 % (3-14); Neutrophils Absolute Auto 4600 /uL (1500-7000); Neutrophils Percent Auto 70.6 % (50-75); Platelet Count 124 X10^3/uL (150-400); Red Blood Cell Count 4.64 X10^6/uL (4.5-5.9); Red Cell Distribution Width 14.9 % (11.6-14.8); White Blood Cell Count 6.5 X10^3/uL (4.5-11.0)
[2023-10-27 11:12] LABS: Cholesterol 152 mg/dL (140-199); HDL Cholesterol 53 mg/dL (40-60); LDL Cholesterol Calculated 67 mg/dL (<100); Triglycerides 158 mg/dL (35-150)
== END ==
LOC: LAB 09:52
PROVIDERS: Family Provider Family Medicine; PCP Family Medicine; Referring Provider Internal Medicine Cardiovascular Disease; Visit Provider Internal Medicine Cardiovascular Disease
DX: I25.10 Atherosclerotic heart disease of native coronary artery without angina pectoris (principal)
CPT/HCPCS: 36415; 80061; 85025

== ENCOUNTER → 2023-11-04 10:00 | Outpatient (CLI) | payer MEDICARE, OTHER, SELFPAY ==
[2022-12-29 14:02] VITALS: BMI 26.1
--- NOTE | 2023-11-04 10:04 | DI.RAD.S_ITS ---
PROCEDURE: XR HIP W PEL IF DONE BILAT 2V INDICATIONS: Spondylolisthesis, lumbar region, SI joint dysfunction TECHNIQUE: AP pelvis with lateral view(s) of the bilateral hip(s). COMPARISON: None. FINDINGS: Bones: No fractures or dislocations. Right sacroiliac fixation. 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 Pelvic ring appears intact. No suspicious bony lesions. Partially visualized lumbar spine hardware. Soft tissues: The visualized bowel gas pattern is normal. No suspicious soft tissue calcifications. IMPRESSION: Mild degenerative changes of the bilateral hips. No acute osseous abnormalities. Dictated by: Sajan Jett M.D. on 11/04/2023 at 11:46 Approved by: Sajan Jett M.D. on 11/04/2023 at 11:47
--- NOTE | 2023-11-04 10:04 | DI.RAD.S_ITS ---
PROCEDURE: XR LUMBAR SPINE 2-3V INDICATIONS: Spondylolisthesis, lumbar region, SI joint dysfunction TECHNIQUE: 3 views of the lumbar spine were acquired. COMPARISON: [facility], CR, XR LUMBAR SPINE MIN 4V, 06/27/2023, 12:00. [facility], CR, XR LUMBAR SPINE 2-3V, 01/30/2019, 11:52. FINDINGS: Bones: 5 [id number] vertebrae are present. Mild retrolisthesis of L2 on L3. Extension of posterior spinal fixation hardware, now spanning L3 through L5 as well as laminectomies. Improvement in prior L4-5 anterolisthesis. Chronic wedging of T12 and L1 is stable compared to prior. Diffusely decreased osseous mineralization. Redemonstration of multilevel degenerative changes. No vertebral body compression fractures. No suspicious bony lesions. Soft tissues: Overlying bowel gas pattern is normal. No suspicious soft tissue calcifications. Atherosclerotic vascular calcifications. IMPRESSION: Redemonstration of multilevel degenerative changes of the lumbar spine status post extension of posterior spinal fixation hardware spanning L3 through L5. Improvement in L4-5 anterolisthesis. Dictated by: Sajan Jett M.D. on 11/04/2023 at 11:47 Approved by: Sajan Jett M.D. on 11/04/2023 at 11:49
== END ==
PROVIDERS: Family Provider Family Medicine; PCP Family Medicine; Referring Provider Neurological Surgery; Visit Provider Neurological Surgery
DX: M43.16 Spondylolisthesis, lumbar region (principal); M47.816 Spondylosis without myelopathy or radiculopathy, lumbar region; M53.3 Sacrococcygeal disorders, not elsewhere classified
CPT/HCPCS: 72100; 73521

== ENCOUNTER → 2023-11-29 11:30 | Outpatient (CLI) | payer MEDICARE, OTHER, SELFPAY ==
[2022-12-29 14:02] VITALS: BMI 26.1
== END ==
PROVIDERS: Family Provider Family Medicine; PCP Family Medicine; Visit Provider Specialist
DX: N40.1 Benign prostatic hyperplasia with lower urinary tract symptoms (principal); N36.5 Urethral false passage; N35.914 Unspecified anterior urethral stricture, male; N39.3 Stress incontinence (female) (male)
CPT/HCPCS: 81002; 87086; 99215

== ENCOUNTER 2024-01-11 21:42 | Inpatient (IN) | payer MEDICARE, OTHER, SELFPAY ==
[2023-12-28 11:26] VITALS: BMI 26.1
[2024-01-11] VITALS (9 sets, daily range): BP systolic 111–181; BP diastolic 57–102; PULSE 84–108; RESP 18–35; TEMP 38.8–39.8; O2SAT 89–98; BMI 26.4
--- NOTE | 2024-01-11 21:58 | DI.RAD.S_ITS ---
PROCEDURE: XR CHEST 1V INDICATIONS: eval for PNA TECHNIQUE: One view of the chest was acquired. COMPARISON: [facility], CR, XR CHEST 1V, 12/15/2022, 14:51. [facility], CR, XR CHEST 1V, 12/08/2022, 18:20. FINDINGS: Surgical changes and devices: Partially visualized ACDF hardware. Lungs and pleura: Elevation the right hemidiaphragm with mild right basilar atelectasis. Otherwise, the lungs appear clear. No pleural effusions or pneumothorax. Mediastinum: Mediastinal contours appear normal. Heart size is normal. Bones and chest wall: No suspicious bony lesions. Overlying soft tissues appear unremarkable. IMPRESSION: No acute cardiopulmonary abnormality is seen. Dictated by: Sajan Jett M.D. on 01/11/2024 at 22:18 Approved by: Sajan Jett M.D. on 01/11/2024 at 22:18
--- NOTE | 2024-01-11 22:17 | ED_ITS ---
HPI - General Adult General Chief complaint: Fever Stated complaint: fever Time Seen by Provider: 01/11/24 21:57 Source: patient and family Mode of arrival: Ambulatory Limitations: no limitations History of Present Illness HPI narrative: Patient is an 78-year-old male who over the past 24 hours has developed rigors, fevers, urinary incontinence, urinary frequency and abdominal pain. He did take some medications earlier today for the fevers. He also took a home COVID test which was negative. He was having some mild abdominal tenderness. No change in bowel habits. No chest pain. Is having occasional shortness of breath. Also having headache and neck pain. He has had urinary issues in the past after having a false passage made by a Rangel catheter insertion. Was recently started on a new medication by his urologist. Related Data Home Medications Medication Instructions Recorded Confirmed omeprazole 10 mg capsule,delayed 10 mg PO DAILY 06/19/20 12/29/23 release Chelated magnesium 250mg PO 01/13/23 12/29/23 aspirin 81 mg tablet,delayed 81 mg PO DAILY 01/13/23 12/29/23 release (Adult Low Dose Aspirin) coenzyme Q10 [Co Q-10] PO 01/13/23 12/29/23 ezetimibe 10 mg tablet 10 mg PO DAILY 01/13/23 12/29/23 melatonin PO 01/13/23 12/29/23 omega-3 acid ethyl esters PO 01/13/23 12/29/23 vitamin E (dl, acetate) PO 01/13/23 12/29/23 rosuvastatin 40 mg tablet 40 mg PO DAILY 06/29/23 12/29/23 methocarbamol 750 mg tablet 750 mg PO DAILY 09/13/23 12/29/23 Previous Rx's Medication Instructions Recorded levothyroxine 75 mcg tablet 75 mcg PO DAILY #90 tabs 04/08/23 naratriptan 2.5 mg tablet See Rx Instructions .Route 04/08/23 .COMPLEX #27 tabs tramadol 50 mg tablet See Rx Instructions .Route 04/08/23 .COMPLEX #30 tabs Disabled parking permit #1 ea 09/13/23 pregabalin 200 mg capsule See Rx Instructions .Route 10/03/23 .COMPLEX #180 caps hydrocodone 5 mg-acetaminophen 325 1 tab PO Q8H PRN pain #30 tabs 07/23/24 mg tablet mirabegron 50 mg tablet,extended 50 mg PO DAILY #90 tabs 01/02/24 release 24 hr sildenafil 100 mg tablet 100 mg PO DAILY PRN sexual 01/02/24 activity #10 tabs Allergies Allergy/AdvReac Type Severity Reaction Status Date / Time clopidogrel [From Plavix] Allergy Verified 12/29/23 15:49 tizanidine [From Zanaflex] Allergy Verified 12/29/23 15:49 honey AdvReac Gastrointestinal Verified 12/29/23 15:49 Upset Review of Systems Review of Systems ROS Unobtainable: All systems reviewed & are unremarkable except as noted in HPI and below Patient History Medical History ZACH (stress urinary incontinence), male BPH NOS w ur obs/LUTS Urethral false passage Headache, chronic migraine without aura Spondylolisthesis at L4-L5 level Cervical fusion syndrome Lung nodule Encounter for initial annual wellness visit (AWV) in Medicare patient Hypothyroidism Fever Cough Somatic dysfunction of lower extremity Stiffness of finger joint of right hand Removal of staple Sacral region somatic dysfunction Pelvic somatic dysfunction Scalp laceration Erectile dysfunction Segmental and somatic dysfunction of abdomen and other regions Rib pain on right side Chronic right shoulder pain Segmental and somatic dysfunction of rib cage Lumbar region somatic dysfunction Thoracic region somatic dysfunction Cervical somatic dysfunction Cranial somatic dysfunction Vasculogenic erectile dysfunction Post-void dribbling Lower urinary tract symptoms (LUTS) Actinic keratosis Sleep apnea (~2014) Migraines (~1995) Headache (~1995) Shoulder pain (~1999) Fractures (~1983) Carpal tunnel syndrome (~2014) Ankle pain (~2001) Herpes (~1995) Tinnitus (~2009) Hearing loss History of urinary incontinence (~2019) Skin cancer (~2012) Melanoma (~2009) Chronic neck and back pain Sciatic pain GERD (gastroesophageal reflux disease) (~2011) Hypothyroidism (acquired) Fibromyalgia (~2014) 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, with status migrainosus Surgical History S/P insertion of spinal cord stimulator S/P lumbar spinal fusion Anesthesia Pyloric stenosis (~1943) History of fusion of cervical spine History of heart artery stent (~2012) S/P TURP (status post transurethral resection of prostate) History of hernia repair History of laminectomy (~2003) History of fusion of cervical spine (~1995) History of carpal tunnel surgery History of lumbar fusion (~2000) Family History Father CAD (coronary artery disease) Diabetes mellitus History of heart disease Hypertension Congestive heart failure Mother Congestive heart failure Sister Cancer Hypertension Hyperlipidemia Social History household members: friend(s) Smoking Status: Never smoker Smoking Status: Never smoker alcohol intake frequency: 0-2 drinks per day Substance Use Type: does not use Exam Initial Vital Signs Initial Vital Signs: Vital Signs Temperature 101.9 F H 01/11/24 21:51 Pulse Rate 84 01/11/24 21:51 Respiratory Rate 20 01/11/24 21:51 Blood Pressure 180/83 H 01/11/24 21:51 Pulse Oximetry 94 01/11/24 21:51 Oxygen Delivery Method Room Air 01/11/24 21:51 Const General: cooperative, well developed, No diaphoretic and ill appearing Nutritional Appearance: average body habitus HENWA Head: normal to inspection and normocephalic Resp Effort & Inspection: no cough, labored, no retractions and tachypneic Auscultation: wheezes Cardio Rate: regular rate Rhythm: regular rhythm GI Inspection: distended Palpation: firm, No guarding, No rigid and tender Skin General: no rashes or lesions noted Neuro General: patient alert, patient awake, patient oriented x3 and moves all extremities Extrem General: normal to inspection and capillary refill normal Psych Appearance: grossly normal and well kempt Scores GCS [place] coma scale eye opening: Spontaneous [place] coma scale verbal response: Orientated [place] coma scale motor response: Obey commands [place] coma scale total score: 15 Course Orders Ordered: ED Orders 01/11/24 20:15 Urine Culture Stat Urine Microscopic Stat 01/11/24 21:58 XR chest 1V Stat 01/11/24 22:05 Complete Blood Count AUTO DIFF Stat Comprehensive Metabolic Panel Stat Lactate (Lactic Acid) Stat Lipase Stat Procalcitonin Stat 01/11/24 22:15 Blood Culture Stat Respiratory Panel (Film Array) Stat 01/11/24 23:14 CT chest abd pel w con Stat Sodium Chloride (Normal Saline 0.9%) 1,000 mls @ 125 mls/hr IV CONT MARLON Discontinued Medications Albuterol (Albuterol 2.5 Mg/3 Ml Neb (Adult)) 2.5 mg INH NOW ONE Stop: 01/11/24 22:18 Last Admin: 01/11/24 22:27 Dose: 2.5 mg Documented By: AB Sodium Chloride (Normal Saline 0.9%) 1,000 mls @ 1,000 mls/hr IV BOLUS ONE Stop: 01/11/24 22:57 Last Admin: 01/11/24 22:19 Dose: 1,000 mls/hr Documented By: AB Acetaminophen (Ofirmev) 1,000 mg in 100 mls @ 400 mls/hr IV NOW ONE Stop: 01/11/24 22:13 Last Infusion: 01/11/24 22:38 Dose: Infused Documented By: Admin: 01/11/24 22:21 Dose: 400 mls/hr Documented By: AB Ceftriaxone Sodium 1,000 mg/ (Sodium Chloride) 100 mls @ 200 mls/hr IV NOW ONE Stop: 01/11/24 22:01 Last Infusion: 01/11/24 23:00 Dose: Infused Documented By: Admin: 01/11/24 22:27 Dose: 200 mls/hr Documented By: AB Vancomycin HCl (Vancomycin) 1,000 mg in 200 mls @ 200 mls/hr IV NOW ONE Stop: 01/12/24 00:10 Last Admin: 01/11/24 23:24 Dose: 200 mls/hr Documented By: AB Ketorolac Tromethamine (Ketorolac 30 Mg/Ml Vial) 30 mg IV NOW ONE Stop: 01/11/24 23:13 Last Admin: 01/11/24 23:23 Dose: 30 mg Documented By: AB Vital Signs Vital signs: Vital Signs - 8 hr 01/11/24 21:51 01/11/24 22:07 01/11/24 22:25 Temperature 101.9 F H Pulse Rate 84 108 H Respiratory Rate 20 35 H Blood Pressure 180/83 H 181/102 H Pulse Oximetry 94 Oxygen Delivery Method Room Air Oxygen Flow Rate 01/11/24 22:25 01/11/24 22:29 01/11/24 22:30 Temperature Pulse Rate 100 H 97 H Respiratory Rate 32 H 31 H Blood Pressure 173/97 H Pulse Oximetry 94 98 Oxygen Delivery Method Room Air Oxygen Flow Rate 01/11/24 22:30 01/11/24 23:00 01/11/24 23:00 Temperature Pulse Rate 97 H 105 H Respiratory Rate 32 H 23 Blood Pressure 111/65 Pulse Oximetry 98 90 L Oxygen Delivery Method Oxygen Flow Rate 01/11/24 23:08 01/11/24 23:23 01/11/24 23:26 Temperature 103.6 F H 102 F H Pulse Rate Respiratory Rate Blood Pressure 122/57 L Pulse Oximetry Oxygen Delivery Method Oxygen Flow Rate 01/11/24 23:26 01/11/24 23:30 01/11/24 23:30 Temperature Pulse Rate 104 H 101 H Respiratory Rate 18 21 Blood Pressure 119/62 Pulse Oximetry 94 89 L Oxygen Delivery Method Oxygen Flow Rate 01/12/24 00:00 01/12/24 00:00 01/12/24 00:00 Temperature 102.6 F H Pulse Rate 94 H Respiratory Rate 19 Blood Pressure 107/55 L Pulse Oximetry 93 Oxygen Delivery Method Nasal Cannula Oxygen Flow Rate 4 Medical Decision Making Medical Records Medical records reviewed: Yes I reviewed the patient's medical records. Lab Data Lab results reviewed: Yes I reviewed the patient's lab results. 01/11/24 22:05 01/11/24 22:05 Labs: Lab Results 01/11/24 01/11/24 01/11/24 Range/Units 20:15 22:05 22:15 WBC 12.8 H (4.5-11.0) X10^3/uL RBC 4.96 (4.5-5.9) X10^6/uL Hgb 14.8 (13.5-17.5) g/dL Hct 43.9 (41-53) % MCV 88.6 (80-100) fL MCH 29.8 (26-34) PG MCHC 33.7 (30-36) % RDW 15.5 H (11.6-14.8) % Plt Count 121 L (150-400) X10^3/uL Neut % (Auto) 85.8 H (50-75) % Lymph % (Auto) 12.4 L (25-40) % [place] % (Auto) 1.2 L (3-14) % Eos % (Auto) 0.2 L (2-4) % Baso % (Auto) 0.4 (0-2) % Neut # (Auto) 86644 H (1194-9593) /uL Lymph # (Auto) 1600 (6504-9401) /uL [place] # (Auto) 100 (0-900) /uL Eos # (Auto) 0 (0-450) /uL Baso # (Auto) 0 (0-100) /uL Sodium 137 (137-145) mmol/L Potassium 4.4 (3.4-5.1) mmol/L Chloride 100 (98-107) mmol/L Carbon Dioxide 24 (22-32) mmol/L BUN 13 (9-20) mg/dL Creatinine 0.90 (0.66-1.25) mg/dL Estimated GFR > 60 (>60) mL/min BUN/Creatinine Ratio 14.4 (6-22) Glucose 132 H (80-110) mg/dL Lactate 3.1 H (0.7-2.1) mmol/L Calcium 9.6 (8.4-10.2) mg/dL Total Bilirubin 1.2 (0.2-1.3) mg/dL AST 56 (17-59) IU/L ALT 41 (<50) IU/L Alkaline Phosphatase 86 (38-126) U/L Total Protein 8.2 (6.3-8.2) g/dL Albumin 5.0 (3.5-5.0) g/dL Globulin 3.2 (1.7-4.1) g/dL Albumin/Globulin Ratio 1.6 (1.0-2.8) Lipase 43 (23-300) U/L Procalcitonin 0.071 (<0.5) ng/mL Urine RBC 0-1/hpf (0-5/HPF) Urine WBC 30-100/hpf H (0-5/HPF) Ur Squamous Epith Cells 0-1 /hpf (0-5/HPF) Urine Bacteria Many (>30) H (None) Ur Culture Indicated? Specimen cultured Vol Urine Centrifuged 10ml (spun) Chlamy pneumoniae PCR Not detected (Not Detect) Adenovirus (PCR) Not detected (Not Detect) B.parapertussis DNA PCR Not detected (Not Detecte) Coronavirus OC43 (PCR) Not detected (Not Detect) Coronavirus HKU1 (PCR) Not detected (Not Detect) Coronavirus 229E (PCR) Not detected (Not Detect) SARS-CoV-2 (PCR) Not detected (Not Detecte) Coronavirus NL63 (PCR) Not detected (Not Detect) Human Metapneumovir PCR Not detected (Not Detect) Influenza Type A (PCR) Not detected (Not Detect) Influenza Type B (PCR) Not detected (Not Detect) M. pneumoniae (PCR) Not detected (Not Detect) Parainfluenza 1 (PCR) Not detected (Not Detect) Parainfluenza 2 (PCR) Not detected (Not Detect) Parainfluenza 3 (PCR) Not detected (Not Detect) Parainfluenza 4 (PCR) Not detected (Not Detect) RSV (PCR) Not detected (Not Detect) Entero/Rhino (PCR) Not detected (Not Detect) 01/12/24 Range/Units 00:13 WBC (4.5-11.0) X10^3/uL RBC (4.5-5.9) X10^6/uL Hgb (13.5-17.5) g/dL Hct (41-53) % MCV (80-100) fL MCH (26-34) PG MCHC (30-36) % RDW (11.6-14.8) % Plt Count (150-400) X10^3/uL Neut % (Auto) (50-75) % Lymph % (Auto) (25-40) % [place] % (Auto) (3-14) % Eos % (Auto) (2-4) % Baso % (Auto) (0-2) % Neut # (Auto) (3616-1663) /uL Lymph # (Auto) (5052-6799) /uL [place] # (Auto) (0-900) /uL Eos # (Auto) (0-450) /uL Baso # (Auto) (0-100) /uL Sodium (137-145) mmol/L Potassium (3.4-5.1) mmol/L Chloride (98-107) mmol/L Carbon Dioxide (22-32) mmol/L BUN (9-20) mg/dL Creatinine (0.66-1.25) mg/dL Estimated GFR (>60) mL/min BUN/Creatinine Ratio (6-22) Glucose (80-110) mg/dL Lactate 1.2 (0.7-2.1) mmol/L Calcium (8.4-10.2) mg/dL Total Bilirubin (0.2-1.3) mg/dL AST (17-59) IU/L ALT (<50) IU/L Alkaline Phosphatase (38-126) U/L Total Protein (6.3-8.2) g/dL Albumin (3.5-5.0) g/dL Globulin (1.7-4.1) g/dL Albumin/Globulin Ratio (1.0-2.8) Lipase (23-300) U/L Procalcitonin (<0.5) ng/mL Urine RBC (0-5/HPF) Urine WBC (0-5/HPF) Ur Squamous Epith Cells (0-5/HPF) Urine Bacteria (None) Ur Culture Indicated? Vol Urine Centrifuged Chlamy pneumoniae PCR (Not Detect) Adenovirus (PCR) (Not Detect) B.parapertussis DNA PCR (Not Detecte) Coronavirus OC43 (PCR) (Not Detect) Coronavirus HKU1 (PCR) (Not Detect) Coronavirus 229E (PCR) (Not Detect) SARS-CoV-2 (PCR) (Not Detecte) Coronavirus NL63 (PCR) (Not Detect) Human Metapneumovir PCR (Not Detect) Influenza Type A (PCR) (Not Detect) Influenza Type B (PCR) (Not Detect) M. pneumoniae (PCR) (Not Detect) Parainfluenza 1 (PCR) (Not Detect) Parainfluenza 2 (PCR) (Not Detect) Parainfluenza 3 (PCR) (Not Detect) Parainfluenza 4 (PCR) (Not Detect) RSV (PCR) (Not Detect) Entero/Rhino (PCR) (Not Detect) Urine Dip Bedside Urine Glucose Negative Bedside Urine Bilirubin - Negative Bedside Urine Ketone - Negative Urine Specific [place] 1.015 Bedside Urine Occult Blood +/- Bedside Urine pH 7.5 Bedside Urine Protein - Negative Bedside Urine Urobilinogen - Negative Bedside Urine Nitrite + Positive Bedside Urine Leukocytes - Negative Esterase Point of care testing: Urine Dip Bedside Urine Glucose Negative Bedside Urine Bilirubin - Negative Bedside Urine Ketone - Negative Urine Specific [place] 1.015 Bedside Urine Occult Blood +/- Bedside Urine pH 7.5 Bedside Urine Protein - Negative Bedside Urine Urobilinogen - Negative Bedside Urine Nitrite + Positive Bedside Urine Leukocytes - Negative Esterase Imaging Data Chest x-ray: Radiologist's Impression: PROCEDURE: XR CHEST 1V INDICATIONS: eval for PNA TECHNIQUE: One view of the chest was acquired. COMPARISON: [facility], CR, XR CHEST 1V, 12/15/2022, 14:51. [facility], CR, XR CHEST 1V, 12/08/2022, 18:20. FINDINGS: Surgical changes and devices: Partially visualized ACDF hardware. Lungs and pleura: Elevation the right hemidiaphragm with mild right basilar atelectasis. Otherwise, the lungs appear clear. No pleural effusions or pneumothorax. Mediastinum: Mediastinal contours appear normal. Heart size is normal. Bones and chest wall: No suspicious bony lesions. Overlying soft tissues appear unremarkable. IMPRESSION: No acute cardiopulmonary abnormality is seen. CT chest/abd/pelvis: Radiologist's Impression: PROCEDURE: CT CHEST ABD PEL W CON INDICATIONS: SOB and ABD distention TECHNIQUE: After the administration of intravenous contrast, 5 mm thick sections acquired from the lung apices to the symphysis. 5 mm coronal and sagittal reformats were performed, with additional 7 mm MIP reformats through the lungs. For radiation dose reduction, the following was used: automated exposure control, adjustment of mA and/or kV according to patient size. COMPARISON: [facility], CT, CT CHEST WO CON, 04/05/2023, 11:54. FINDINGS: Image quality: Excellent. CHEST: Lower Neck: No enlarged lymph nodes. Thyroid: No thyroid nodules which require sonographic follow up, per consensus guidelines. Axillae: No enlarged lymph nodes. Chest Wall: Unremarkable. Lungs and Pleura: Trace right pleural effusion with minimal adjacent atelectasis.. Small right apical cavitary lesion is stable. Heart: Heart size is normal. Severe coronary artery calcifications. No pericardial effusion. Thoracic Vessels: The aorta and pulmonary arteries demonstrate normal size. Atherosclerotic vascular calcifications. Mediastinum and [place]: No enlarged lymph nodes. Esophagus: No wall thickening. Small hiatal hernia. ABDOMEN: Liver: No solid mass. Gallbladder: No radiopaque gallstones or wall thickening. Biliary ducts: No biliary dilation. Pancreas: No ductal dilation. Spleen: Size is within normal limits. Adrenal Glands: No adrenal nodules. Kidneys and Ureters: No hydronephrosis. No solid mass. No complex renal cystic lesion which requires follow up. Stomach and Bowel: Normal colonic caliber, without significant wall thickening. Moderate stool burden. Normal appendix. No evidence of bowel obstruction. Peritoneum: No abnormal intraperitoneal fluid. No free air. Ventral Wall: No significant ventral hernia. Abdominal Nodes: No retroperitoneal or mesenteric adenopathy by size criteria. Vessels: Aorta and inferior vena cava are normal in size. Atherosclerotic vascular calcifications. PELVIS: Pelvic Organs: Mild prostatomegaly. Bladder: Decompressed, limiting evaluation. Bladder wall appears thickened. Pelvic Nodes: No enlarged lymph nodes. Miscellaneous: Left small fat containing inguinal hernia. Bones: No aggressive osseous abnormality. Decreased osseous mineralization. Right sacroiliac screws. Degenerative changes of the spine. L3 through L5 spinal fixation. L2 through L5 laminectomy. IMPRESSION: 1. No definite cause for patient's symptoms is identified. 2. Trace right pleural effusion with minimal adjacent atelectasis versus consolidation. 3. No evidence of bowel obstruction. No acute findings within the abdomen or pelvis. 4. Severe coronary artery calcifications. 5. Moderate stool burden, correlate for constipation. 6. Additional chronic findings as described above. MDM Narrative Medical decision making narrative: Patient has a nitrite positive urine and given the symptoms that brought him to the emergency department today this would be consistent with a UTI. It does have an elevated lactate and also leukocytosis. Blood cultures were obtained. Fluids administered. He was never hypotensive. Antibiotics administered. Repeat lactate ordered. He initially had quite a bit of wheezing and abdominal distention. CT scan of the chest abdomen and pelvis showed no acute pathology. His wheezing improved after a nebulizer treatment. Patient was given antipyretics and he did experience improvement of the fever.. During my initial evaluation he was obviously having rigors. Respiratory panel was negative. I did discuss the case with hospitalist on-call who will admit for further evaluation treatment. Discussed the need for admission with the patient in his . They both expressed understanding and agreement with plan. Discharge Plan Departure Patient Disposition: Admitted As Inpatient Clinical Impression: Urinary tract infection, Hypoxia Admit Date/Time: 01/12/24 00:24 Admit Provider: Juarez Paniagua
[2024-01-11] MEDS: SODIUM CHLORIDE 0.9% 1,000 ML 1000 ML IV (22:19)
[2024-01-11] MEDS: ACETAMINOPHEN IV 1,000 MG/100 ML VIAL 400 MG IV (22:21)
[2024-01-11] MEDS: ALBUTEROL 2.5 MG/3 ML NEB (ADULT) INH (22:27)
[2024-01-11] MEDS: cefTRIAXone 1,000 MG in SODIUM CHLORIDE 0.9% 100 ML 200 MG IV (22:27)
[2024-01-11 22:33] LABS: Bacteria Urine Many (>30); Culture Indicated Urine Specimen Cultured; RBC Urine 0-1/HPF (0-5/HPF); Squamous Epithelial Cell Urine 0-1 /HPF (0-5/HPF); Urine Volume 10mL (spun); WBC Urine 30-100/HPF (0-5/HPF)
[2024-01-11 22:42] LABS: Add Manual Diff / Slide Review NO; Basophils Absolute Auto 0 /uL (0-100); Basophils Percent Auto 0.4 % (0-2); Eosinophils Absolute Auto 0 /uL (0-450); Eosinophils Percent Auto 0.2 % (2-4); Hematocrit 43.9 % (41-53); Hemoglobin 14.8 g/dL (13.5-17.5); Lymphocytes Absolute Auto 1600 /uL (1100-4500); Lymphocytes Percent Auto 12.4 % (25-40); Mean Corpuscular HGB Conc 33.7 % (30-36); Mean Corpuscular Hemoglobin 29.8 PG (26-34); Mean Corpuscular Volume 88.6 fL (80-100); Monocytes Absolute Auto 100 /uL (0-900); Monocytes Percent Auto 1.2 % (3-14); Neutrophils Absolute Auto 11000 /uL (1500-7000); Neutrophils Percent Auto 85.8 % (50-75); Platelet Count 121 X10^3/uL (150-400); Red Blood Cell Count 4.96 X10^6/uL (4.5-5.9); Red Cell Distribution Width 15.5 % (11.6-14.8); White Blood Cell Count 12.8 X10^3/uL (4.5-11.0)
[2024-01-11 23:04] LABS: Alanine Aminotransferase 41 IU/L (<50); Albumin Globulin Ratio 1.6 (1.0-2.8); Alkaline Phosphatase 86 U/L (38-126); Aspartate Aminotransferase 56 IU/L (17-59); BUN Creatinine Ratio 14.4 (6-22); Bilirubin Total 1.2 mg/dL (0.2-1.3); Blood Urea Nitrogen 13 mg/dL (9-20); Calcium 9.6 mg/dL (8.4-10.2); Carbon Dioxide 24 mmol/L (22-32); Chloride 100 mmol/L (98-107); Estimated Glomerular Filt Rate > 60 mL/min (>60); Globulin 3.2 g/dL (1.7-4.1); Glucose 132 mg/dL (80-110); HEMOLYSIS < 15 (0-50); Lipase 43 U/L (23-300); Potassium 4.4 mmol/L (3.4-5.1); Sodium 137 mmol/L (137-145); Total Protein 8.2 g/dL (6.3-8.2)
[2024-01-11 23:05] LABS: Lactate (Lactic Acid) 3.1 mmol/L (0.7-2.1)
--- NOTE | 2024-01-11 23:14 | DI.CT.S_ITS ---
PROCEDURE: CT CHEST ABD PEL W CON INDICATIONS: SOB and ABD distention TECHNIQUE: After the administration of intravenous contrast, 5 mm thick sections acquired from the lung apices to the symphysis. 5 mm coronal and sagittal reformats were performed, with additional 7 mm MIP reformats through the lungs. For radiation dose reduction, the following was used: automated exposure control, adjustment of mA and/or kV according to patient size. COMPARISON: [facility], CT, CT CHEST WO CON, 04/05/2023, 11:54. FINDINGS: Image quality: Excellent. CHEST: Lower Neck: No enlarged lymph nodes. Thyroid: No thyroid nodules which require sonographic follow up, per consensus guidelines. Axillae: No enlarged lymph nodes. Chest Wall: Unremarkable. Lungs and Pleura: Trace right pleural effusion with minimal adjacent atelectasis.. Small right apical cavitary lesion is stable. Heart: Heart size is normal. Severe coronary artery calcifications. No pericardial effusion. Thoracic Vessels: The aorta and pulmonary arteries demonstrate normal size. Atherosclerotic vascular calcifications. Mediastinum and [place]: No enlarged lymph nodes. Esophagus: No wall thickening. Small hiatal hernia. ABDOMEN: Liver: No solid mass. Gallbladder: No radiopaque gallstones or wall thickening. Biliary ducts: No biliary dilation. Pancreas: No ductal dilation. Spleen: Size is within normal limits. Adrenal Glands: No adrenal nodules. Kidneys and Ureters: No hydronephrosis. No solid mass. No complex renal cystic lesion which requires follow up. Stomach and Bowel: Normal colonic caliber, without significant wall thickening. Moderate stool burden. Normal appendix. No evidence of bowel obstruction. Peritoneum: No abnormal intraperitoneal fluid. No free air. Ventral Wall: No significant ventral hernia. Abdominal Nodes: No retroperitoneal or mesenteric adenopathy by size criteria. Vessels: Aorta and inferior vena cava are normal in size. Atherosclerotic vascular calcifications. PELVIS: Pelvic Organs: Mild prostatomegaly. Bladder: Decompressed, limiting evaluation. Bladder wall appears thickened. Pelvic Nodes: No enlarged lymph nodes. Miscellaneous: Left small fat containing inguinal hernia. Bones: No aggressive osseous abnormality. Decreased osseous mineralization. Right sacroiliac screws. Degenerative changes of the spine. L3 through L5 spinal fixation. L2 through L5 laminectomy. IMPRESSION: 1. No definite cause for patient's symptoms is identified. 2. Trace right pleural effusion with minimal adjacent atelectasis versus consolidation. 3. No evidence of bowel obstruction. No acute findings within the abdomen or pelvis. 4. Severe coronary artery calcifications. 5. Moderate stool burden, correlate for constipation. 6. Additional chronic findings as described above. Dictated by: Sajan Jett M.D. on 01/11/2024 at 23:46 Approved by: Sajan Jett M.D. on 01/11/2024 at 23:53
[2024-01-11 23:21] LABS: Procalcitonin 0.071 ng/mL (<0.5)
[2024-01-11] MEDS: KETOROLAC 30 MG/ML VIAL IV (23:23)
[2024-01-11] MEDS: VANCOMYCIN 1,000 MG/200 ML PIGGYBACK 200 MG IV (23:24)
[2024-01-11 23:51] LABS: Adenovirus Not Detected (Not Detect); B. parapertussis Not Detected (Not Detecte); Bordetella pertussis Not Detected (Not Detect); Chlamydophila pneumoniae Not Detected (Not Detect); Coronavirus 229E Not Detected (Not Detect); Coronavirus HKU1 Not Detected (Not Detect); Coronavirus NL 63 Not Detected (Not Detect); Coronavirus OC43 Not Detected (Not Detect); Human Metapneumovirus Not Detected (Not Detect); Human Rhinovirus/Enterovirus Not Detected (Not Detect); Influenza A Not Detected (Not Detect); Influenza B Not Detected (Not Detect); Mycoplasma pneumoniae Not Detected (Not Detect); Parainfluenza Virus 1 Not Detected (Not Detect); Parainfluenza Virus 2 Not Detected (Not Detect); Parainfluenza Virus 3 Not Detected (Not Detect); Parainfluenza Virus 4 Not Detected (Not Detect); Respiratory Syncytial Virus Not Detected (Not Detect); SARS- CoV-2 Not Detected (Not Detecte)
[2024-01-12] VITALS (22 sets, daily range): BP systolic 94–185; BP diastolic 54–103; PULSE 60–115; RESP 16–30; TEMP 36.9–39.6; O2SAT 93–100; BMI 26.4
[2024-01-12 00:08] LABS: Reflexed Lactate in 2 Hours Y
[2024-01-12 00:29] LABS: Lactate 2HR (Lactic Acid Rflx) 1.2 mmol/L (0.7-2.1)
[2024-01-12] MEDS: SODIUM CHLORIDE 0.9% 1,000 ML 125 ML IV ×2 (00:45→08:39)
--- NOTE | 2024-01-12 00:54 | PC.NURSE ---
Pt will take all other belongings home with her. Also, pt normally wears a flipper over his missing tooth with a post in place from 5 weeks ago, but the flipper is at home. Pt hearing aids are also at home, pt has reading glasses for pt but no case to place in when not in use.
--- NOTE | 2024-01-12 06:04 | P.HP_ITS ---
History of Present Illness History of Present Illness Date Patient Seen: 01/12/24 Time Patient Seen: 01:45 Chief complaint: fever Narrative: Alfredo is a 78 years old male with a past medical history of hypertension, GERD, dyslipidemia, neuropathy, chronic back pain, fibromyalgia, hypothyroidism, chronic migraine, spinal cord stimulator, lumbar spinal fusion, diabetes and multiple other medical issues was brought to the emergency room for fever chills rigors with urinary urgency and frequency. Started off as a urinary urgency with frequency and some dysuria the past 2 hours in the past 24 hours and subsequently developed fever episodes. Denies any chest pain. Does have occasional shortness of breath with no significant cough. Denies any nausea or vomiting though does have some mild abdominal discomfort in the suprapubic region. Has chronic urinary issues and being followed up by urology in the outpatient setting. In the past was noted to have urethral stricture with urethral false passage and was scheduled for laser unroofing of bulbar urethral false passage. Now currently in the ED, noted to have a temperature of 101.9 with a systolic blood pressure 180. Also tachycardic with a pulse in the 100. Labs revealed a white count of 12.8 with a hemoglobin of 14.8 and platelet count of 121. Sodium 137 with a BUN of 13 and a creatinine of 0.9. Blood sugar was 132. Urinalysis show many bacteria 3200 WBCs. Viral screen is negative. Lactate is 1.2.. CT abdomen pelvis shows evidence of bowel obstruction no acute process. Patient was initiated on IV Rocephin and admitted for further evaluation [facility] Medical History ZACH (stress urinary incontinence), male BPH NOS w ur obs/LUTS Urethral false passage Headache, chronic migraine without aura Spondylolisthesis at L4-L5 level Cervical fusion syndrome Lung nodule Encounter for initial annual wellness visit (AWV) in Medicare patient Hypothyroidism Fever Cough Somatic dysfunction of lower extremity Stiffness of finger joint of right hand Removal of staple Sacral region somatic dysfunction Pelvic somatic dysfunction Scalp laceration Erectile dysfunction Segmental and somatic dysfunction of abdomen and other regions Rib pain on right side Chronic right shoulder pain Segmental and somatic dysfunction of rib cage Lumbar region somatic dysfunction Thoracic region somatic dysfunction Cervical somatic dysfunction Cranial somatic dysfunction Vasculogenic erectile dysfunction Post-void dribbling Lower urinary tract symptoms (LUTS) Actinic keratosis Sleep apnea (~2014) Migraines (~1995) Headache (~1995) Shoulder pain (~1999) Fractures (~1983) Carpal tunnel syndrome (~2014) Ankle pain (~2001) Herpes (~1995) Tinnitus (~2009) Hearing loss History of urinary incontinence (~2019) Skin cancer (~2012) Melanoma (~2009) Chronic neck and back pain Sciatic pain GERD (gastroesophageal reflux disease) (~2011) Hypothyroidism (acquired) Fibromyalgia (~2014) 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, with status migrainosus Surgical History S/P insertion of spinal cord stimulator S/P lumbar spinal fusion Anesthesia Pyloric stenosis (~1942) History of fusion of cervical spine History of heart artery stent (~2012) S/P TURP (status post transurethral resection of prostate) History of hernia repair History of laminectomy (~2003) History of fusion of cervical spine (~1995) History of carpal tunnel surgery History of lumbar fusion (~2000) Family History Father CAD (coronary artery disease) Diabetes mellitus History of heart disease Hypertension Congestive heart failure Mother Congestive heart failure Sister Cancer Hypertension Hyperlipidemia Social History household members: friend(s) Smoking Status: Never smoker Meds Home Medications and Allergies Home Medications Medication Instructions Recorded Confirmed Type omeprazole 10 mg capsule,delayed 20 mg PO DAILY 06/19/20 01/12/24 History release aspirin 81 mg tablet,delayed 81 mg PO DAILY 01/13/23 01/12/24 History release (Adult Low Dose Aspirin) ezetimibe 10 mg tablet 10 mg PO DAILY 01/13/23 01/12/24 History melatonin PO 01/13/23 12/29/23 History omega-3 acid ethyl esters PO 01/13/23 12/29/23 History vitamin E (dl, acetate) PO 01/13/23 12/29/23 History levothyroxine 75 mcg tablet 75 mcg PO DAILY #90 tabs 04/08/23 01/12/24 Rx naratriptan 2.5 mg tablet See Rx Instructions .Route 04/08/23 01/12/24 Rx .COMPLEX #27 tabs tramadol 50 mg tablet See Rx Instructions .Route 04/08/23 01/12/24 Rx .COMPLEX #30 tabs rosuvastatin 40 mg tablet 40 mg PO DAILY 06/29/23 01/12/24 History Disabled parking permit #1 ea 09/13/23 01/12/24 Rx methocarbamol 750 mg tablet 750 mg PO DAILY 09/13/23 01/12/24 History pregabalin 200 mg capsule See Rx Instructions .Route 10/03/23 01/12/24 Rx .COMPLEX #180 caps hydrocodone 5 mg-acetaminophen 325 1 tab PO Q8H PRN pain #30 tabs 12/13/23 01/12/24 Rx mg tablet mirabegron 50 mg tablet,extended 50 mg PO DAILY #90 tabs 01/02/24 Rx release 24 hr sildenafil 100 mg tablet 100 mg PO DAILY PRN sexual 01/02/24 01/12/24 Rx activity #10 tabs Allergies Allergy/AdvReac Type Severity Reaction Status Date / Time clopidogrel [From Plavix] Allergy Verified 12/29/23 15:49 tizanidine [From Zanaflex] Allergy Verified 12/29/23 15:49 honey AdvReac Gastrointestinal Verified 12/29/23 15:49 Upset Review of Systems Review of Systems Narrative: 12 point review of systems negative unless otherwise stated in the history of present illness Exam Vital Signs (past 8 hours): - 01/11/24 22:07 01/11/24 22:25 01/11/24 22:25 Temperature Pulse Rate 108 H 100 H Respiratory Rate 35 H 32 H Blood Pressure 181/102 H Pulse Oximetry 94 Oxygen Delivery Method Oxygen Flow Rate Fraction of Inspired Oxygen 01/11/24 22:29 01/11/24 22:30 01/11/24 22:30 Temperature Pulse Rate 97 H 97 H Respiratory Rate 31 H 32 H Blood Pressure 173/97 H Pulse Oximetry 98 98 Oxygen Delivery Method Room Air Oxygen Flow Rate Fraction of Inspired Oxygen 01/11/24 23:00 01/11/24 23:00 01/11/24 23:08 Temperature 103.6 F H Pulse Rate 105 H Respiratory Rate 23 Blood Pressure 111/65 Pulse Oximetry 90 L Oxygen Delivery Method Oxygen Flow Rate Fraction of Inspired Oxygen 01/11/24 23:26 01/11/24 23:26 01/11/24 23:30 Temperature Pulse Rate 104 H 101 H Respiratory Rate 18 21 Blood Pressure 122/57 L Pulse Oximetry 94 89 L Oxygen Delivery Method Oxygen Flow Rate Fraction of Inspired Oxygen 01/11/24 23:30 01/12/24 00:00 01/12/24 00:00 Temperature 102.6 F H Pulse Rate Respiratory Rate Blood Pressure 119/62 107/55 L Pulse Oximetry Oxygen Delivery Method Oxygen Flow Rate Fraction of Inspired Oxygen 01/12/24 00:00 01/12/24 00:30 01/12/24 00:30 Temperature Pulse Rate 94 H 92 H Respiratory Rate 19 17 Blood Pressure 107/56 L Pulse Oximetry 93 95 Oxygen Delivery Method Nasal Cannula Room Air Oxygen Flow Rate 4 Fraction of Inspired Oxygen 01/12/24 01:00 01/12/24 01:00 01/12/24 01:30 Temperature Pulse Rate 88 Respiratory Rate 17 Blood Pressure 106/58 L 109/59 L Pulse Oximetry 98 Oxygen Delivery Method Oxygen Flow Rate Fraction of Inspired Oxygen 01/12/24 01:30 01/12/24 02:49 01/12/24 02:49 Temperature 99.5 F Pulse Rate 89 86 Respiratory Rate 17 17 Blood Pressure 102/58 L Pulse Oximetry 96 96 95 Oxygen Delivery Method Room Air Nasal Cannula Oxygen Flow Rate 1 Fraction of Inspired Oxygen 1 01/12/24 03:01 01/12/24 04:47 01/12/24 05:05 Temperature 99.5 F Pulse Rate 79 Respiratory Rate 17 Blood Pressure 101/60 107/70 Pulse Oximetry 98 Oxygen Delivery Method Nasal Cannula Oxygen Flow Rate Fraction of Inspired Oxygen 1 Fraction of Inspired Oxygen 1 Oxygen Delivery Method Nasal Cannula Oxygen Flow Rate 1 Narrative Exam Narrative: Per RN Patient is awake and does not appear to be in acute distress. Air entry equal bilaterally no wheezes no crackles Objective Labs 01/11/24 22:05 01/11/24 22:05 Labs: Laboratory Results - last 24 hr 01/11/24 01/11/24 01/11/24 20:15 22:05 22:15 WBC 12.8 H RBC 4.96 Hgb 14.8 Hct 43.9 MCV 88.6 MCH 29.8 MCHC 33.7 RDW 15.5 H Plt Count 121 L Neut % (Auto) 85.8 H Lymph % (Auto) 12.4 L [place] % (Auto) 1.2 L Eos % (Auto) 0.2 L Baso % (Auto) 0.4 Neut # (Auto) 34126 H Lymph # (Auto) 1600 [place] # (Auto) 100 Eos # (Auto) 0 Baso # (Auto) 0 Sodium 137 Potassium 4.4 Chloride 100 Carbon Dioxide 24 BUN 13 Creatinine 0.90 Estimated GFR > 60 BUN/Creatinine Ratio 14.4 Glucose 132 H Lactate 3.1 H Calcium 9.6 Total Bilirubin 1.2 AST 56 ALT 41 Alkaline Phosphatase 86 Total Protein 8.2 Albumin 5.0 Globulin 3.2 Albumin/Globulin Ratio 1.6 Lipase 43 Procalcitonin 0.071 Urine RBC 0-1/hpf Urine WBC 30-100/hpf H Ur Squamous Epith Cells 0-1 /hpf Urine Bacteria Many (>30) H Ur Culture Indicated? Specimen cultured Vol Urine Centrifuged 10ml (spun) Chlamy pneumoniae PCR Not detected Adenovirus (PCR) Not detected B.parapertussis DNA PCR Not detected Coronavirus OC43 (PCR) Not detected Coronavirus HKU1 (PCR) Not detected Coronavirus 229E (PCR) Not detected SARS-CoV-2 (PCR) Not detected Coronavirus NL63 (PCR) Not detected Human Metapneumovir PCR Not detected Influenza Type A (PCR) Not detected Influenza Type B (PCR) Not detected M. pneumoniae (PCR) Not detected Parainfluenza 1 (PCR) Not detected Parainfluenza 2 (PCR) Not detected Parainfluenza 3 (PCR) Not detected Parainfluenza 4 (PCR) Not detected RSV (PCR) Not detected Entero/Rhino (PCR) Not detected 01/12/24 00:13 WBC RBC Hgb Hct MCV MCH MCHC RDW Plt Count Neut % (Auto) Lymph % (Auto) [place] % (Auto) Eos % (Auto) Baso % (Auto) Neut # (Auto) Lymph # (Auto) [place] # (Auto) Eos # (Auto) Baso # (Auto) Sodium Potassium Chloride Carbon Dioxide BUN Creatinine Estimated GFR BUN/Creatinine Ratio Glucose Lactate 1.2 Calcium Total Bilirubin AST ALT Alkaline Phosphatase Total Protein Albumin Globulin Albumin/Globulin Ratio Lipase Procalcitonin Urine RBC Urine WBC Ur Squamous Epith Cells Urine Bacteria Ur Culture Indicated? Vol Urine Centrifuged Chlamy pneumoniae PCR Adenovirus (PCR) B.parapertussis DNA PCR Coronavirus OC43 (PCR) Coronavirus HKU1 (PCR) Coronavirus 229E (PCR) SARS-CoV-2 (PCR) Coronavirus NL63 (PCR) Human Metapneumovir PCR Influenza Type A (PCR) Influenza Type B (PCR) M. pneumoniae (PCR) Parainfluenza 1 (PCR) Parainfluenza 2 (PCR) Parainfluenza 3 (PCR) Parainfluenza 4 (PCR) RSV (PCR) Entero/Rhino (PCR) Assessment & Plan Assessment & Plan narrative: Alfredo is a 78 years old male with a past medical history of hypertension, GERD, dyslipidemia, neuropathy, chronic back pain, fibromyalgia, hypothyroidism, chronic migraine, spinal cord stimulator, lumbar spinal fusion, diabetes and multiple other medical issues was brought to the emergency room for fever chills rigors with urinary urgency and frequency. Started off as a urinary urgency with frequency and some dysuria the past 2 hours in the past 24 hours and subsequently developed fever episodes. Denies any chest pain. Does have occasional shortness of breath with no significant cough. Denies any nausea or vomiting though does have some mild abdominal discomfort in the suprapubic region. Has chronic urinary issues and being followed up by urology in the outpatient setting. In the past was noted to have urethral stricture with urethral false passage and was scheduled for laser unroofing of bulbar urethral false passage. Now currently in the ED, noted to have a temperature of 101.9 with a systolic blood pressure 180. Also tachycardic with a pulse in the 100. Labs revealed a white count of 12.8 with a hemoglobin of 14.8 and platelet count of 121. Sodium 137 with a BUN of 13 and a creatinine of 0.9. Blood sugar was 132. Urinalysis show many bacteria 3200 WBCs. Viral screen is negative. Lactate is 1.2.. CT abdomen pelvis shows evidence of bowel obstruction no acute process. Patient was initiated on IV Rocephin and admitted for further evaluation 1. Urinary tract infection. In the setting of chills/leukocytosis and initial concern for sepsis #2 history of urethral stricture with urethral false passage Pending cultures, continue IV Rocephin initiated in the emergency room. IV fluids and trend renal function closely 3 DVT prophylaxis will be Lovenox 4 hypothyroidism resume home levothyroxine 5. Chronic back pain. Resume home pain meds 6 chronic migraine headache. Resume the home triptan 7 GERD resume home PPI 8 chronic back pain with radiculopathy/neuropathy. Resume the home Lyrica 9. Hypertension. Initiate as needed IV hydralazine for now and persistently high, may review the need for occasions Patient will be admitted under inpatient status given the concerns for urinary tract infection with sepsis needing IV fluids/IV antibiotics. Expected length of stay is greater than 2 midnights Patient was evaluated with the help of her video communication device. Location of the patient is [facility] in [facility] Time-Based Coding :: [TOTAL MINUTES] spent with patient and on the chart (including review of chart, obtaining history, exam, reviewing outside data, placing orders, documenting exam and treatment plan, and counseling patient) on [DATE].
[2024-01-12] MEDS: LEVOTHYROXINE 75 MCG TABLET PO (06:47)
[2024-01-12] MEDS: ACETAMINOPHEN 325 MG TABLET 650 MG PO ×2 (06:49→19:05)
[2024-01-12 07:35] LABS: Add Manual Diff / Slide Review NO; Basophils Absolute Auto 0 /uL (0-100); Basophils Percent Auto 0.1 % (0-2); Eosinophils Absolute Auto 0 /uL (0-450); Eosinophils Percent Auto 0.1 % (2-4); Hematocrit 40.1 % (41-53); Hemoglobin 13.6 g/dL (13.5-17.5); Lymphocytes Absolute Auto 200 /uL (1100-4500); Lymphocytes Percent Auto 1.9 % (25-40); Mean Corpuscular HGB Conc 33.8 % (30-36); Mean Corpuscular Volume 88.6 fL (80-100); Monocytes Absolute Auto 400 /uL (0-900); Monocytes Percent Auto 3.7 % (3-14); Neutrophils Absolute Auto 9500 /uL (1500-7000); Neutrophils Percent Auto 94.2 % (50-75); Platelet Count 69 X10^3/uL (150-400); Red Blood Cell Count 4.53 X10^6/uL (4.5-5.9); Red Cell Distribution Width 15.3 % (11.6-14.8); White Blood Cell Count 10.1 X10^3/uL (4.5-11.0)
[2024-01-12 08:01] LABS: Lactate (Lactic Acid) 2.1 mmol/L (0.7-2.1)
[2024-01-12 08:02] LABS: Alanine Aminotransferase 33 IU/L (<50); Albumin 3.8 g/dL (3.5-5.0); Albumin Globulin Ratio 1.5 (1.0-2.8); Alkaline Phosphatase 64 U/L (38-126); Aspartate Aminotransferase 44 IU/L (17-59); BUN Creatinine Ratio 16.3 (6-22); Bilirubin Total 1.5 mg/dL (0.2-1.3); Blood Urea Nitrogen 14 mg/dL (9-20); Calcium 8.7 mg/dL (8.4-10.2); Carbon Dioxide 24 mmol/L (22-32); Chloride 105 mmol/L (98-107); Estimated Glomerular Filt Rate > 60 mL/min (>60); Globulin 2.5 g/dL (1.7-4.1); Glucose 97 mg/dL (80-110); HEMOLYSIS < 15 (0-50); Potassium 4.7 mmol/L (3.4-5.1); Sodium 136 mmol/L (137-145); Total Protein 6.3 g/dL (6.3-8.2)
[2024-01-12] MEDS: ASPIRIN EC 81 MG TABLET PO (08:21)
[2024-01-12] MEDS: PREGABALIN 25 MG CAPSULE 50 MG PO ×2 (08:24→20:17)
[2024-01-12] MEDS: PREGABALIN 75 MG CAPSULE 150 MG PO ×2 (08:25→20:17)
[2024-01-12] MEDS: HYDROCODONE/ACET 5/325 TABLET 1 TAB PO (08:25)
[2024-01-12] MEDS: ATORVASTATIN 20 MG TABLET 80 MG PO (08:26)
[2024-01-12 08:27] LABS: Reflexed Lactate in 2 Hours Y
[2024-01-12] MEDS: EZETIMIBE 10 MG TABLET PO (08:27)
[2024-01-12 08:39] LABS: Acinetobacter calcoa-baumannii Not Detected (Not Detect); Bacteroides fragilis Not Detected (Not Detect); CTX-M Resistance Not Detected (Not Detect); Candida albicans Not Detected (Not Detect); Candida auris Not Detected (Not Detect); Candida glabrata Not Detected (Not Detect); Candida krusei Not Detected (Not Detect); Candida parapsilosis Not Detected (Not Detect); Candida tropicalis Not Detected (Not Detect); Cryptococcus neoformans/gatti Not Detected (Not Detect); Enterobacter cloacae complex Not Detected (Not Detect); Enterobacterales Detected (Not Detect); Enterococcus faecalis Not Detected (Not Detect); Enterococcus faecium Not Detected (Not Detect); Haemophilus influenzae Not Detected (Not Detect); IMP Resistance Not Detected (Not Detect); KPC Resistance Not Detected (Not Detect); Klebsiella aerogenes Not Detected (Not Detect); Listeria monocytogenes Not Detected (Not Detect); NDM Resistance Not Detected (Not Detect); Neisseria meningitidis Not Detected (Not Detect); OXA-48-like Resistance Not Detected (Not Detect); Proteus species Not Detected (Not Detect); Pseudomonas aeruginosa Not Detected (Not Detect); Salmonella species Not Detected (Not Detect); Serratia marcescens Not Detected (Not Detect); Staphylococcus epidermidis Not Detected (Not Detect); Staphylococcus lugdunensis Not Detected (Not Detect); Staphylococcus species Not Detected (Not Detect); Stenotrophomonas maltophilia Not Detected (Not Detect); Streptococcus agalactiae (Gr B Not Detected (Not Detect); Streptococcus pneumonia Not Detected (Not Detect); Streptococcus pyogenes (Gr A) Not Detected (Not Detect); Streptococcus species Not Detected (Not Detect); VIM Resistance Not Detected (Not Detect); mcr-1 Resistance Not Detected (Not Detect)
[2024-01-12 09:07] LABS: Lactate 2HR (Lactic Acid Rflx) 2.4 mmol/L (0.7-2.1)
--- NOTE | 2024-01-12 10:06 | PC.NURSE ---
Placed ice packs under the pt's armpits and in his groin at 0958. Attempted to start second IV but no success, one attempt in pt's L AC 18G--great flash of blood but unable to advance catheter, second attempt L hand 18G--good flash of blood but unable to advance catheter and flush IV.
--- NOTE | 2024-01-12 10:33 | PC.NURSE ---
Day shift: At 0935, this RN and JITENDRA Aguilar walked into patient's room. Notable audible wheezing noted with tachypnea. Patient shivering/shaking. Attempted to obtain oxygen saturation, noted patient's hands and feet were mottled and unable to get accurate reading. BP obtained, hypertensive. Tachycardia. Febrile to 100.9. This RN called RT to have them come assess. Placed patient on 10L non-rebreather O2 mask. health care facilities inspector Erika came in. Rapid response called. MD Webber, JITENDRA Gilliam, and RT at bedside. MD Webber d\c'ed IV fluids. MD Webber stated this was rigor and to continue to monitor but no further action needed at this time. JITENDRA Lugo inserted a second IV line with guided ultrasound. Will continue to monitor.
[2024-01-12] MEDS: IBUPROFEN 400 MG TABLET PO ×2 (10:53→20:16)
[2024-01-12] MEDS: MEROPENEM 2 GM in SODIUM CHLORIDE 0.9% 100 ML IV ×2 (11:05→17:33)
--- NOTE | 2024-01-12 12:19 | P.HP_ITS ---
History of Present Illness History of Present Illness Date Patient Seen: 01/12/24 Time Patient Seen: 09:45 Chief complaint: fever Narrative: Per overnight provider, Alfredo is a 78 years old male with a past medical history of hypertension, GERD, dyslipidemia, neuropathy, chronic back pain, fibromyalgia, hypothyroidism, chronic migraine, spinal cord stimulator, lumbar spinal fusion, multiple other medical issues was brought to the emergency room for fever chills rigors with urinary urgency and frequency. Started off as a urinary urgency with frequency and some dysuria the past 2 hours in the past 24 hours and subsequently developed fever episodes. Denies any chest pain. Does have occasional shortness of breath with no significant cough. Denies any nausea or vomiting though does have some mild abdominal discomfort in the suprapubic region. Has chronic urinary issues and being followed up by urology in the outpatient setting. In the past was noted to have urethral stricture with urethral false passage and was scheduled for laser unroofing of bulbar urethral false passage. Now currently in the ED, noted to have a temperature of 101.9 with a systolic blood pressure 180. Also tachycardic with a pulse in the 100. Labs revealed a white count of 12.8 with a hemoglobin of 14.8 and platelet count of 121. Sodium 137 with a BUN of 13 and a creatinine of 0.9. Blood sugar was 132. Urinalysis show many bacteria 3200 WBCs. Viral screen is negative. Lactate is 1.2.. CT abdomen pelvis shows evidence of bowel obstruction no acute process. Patient was initiated on IV Rocephin and admitted for further evaluation Interval History: This morning patient was rigoring. Rapid response called. Vitals were okay no interventions recommended at the time other than changing from ceftriaxone to meropenem given healthcare contact recently. Blood cultures are positive in 4/4 bottles for gram negative bacilli. Now improved. [facility] Medical History ZACH (stress urinary incontinence), male BPH NOS w ur obs/LUTS Urethral false passage Headache, chronic migraine without aura Spondylolisthesis at L4-L5 level Cervical fusion syndrome Lung nodule Encounter for initial annual wellness visit (AWV) in Medicare patient Hypothyroidism Fever Cough Somatic dysfunction of lower extremity Stiffness of finger joint of right hand Removal of staple Sacral region somatic dysfunction Pelvic somatic dysfunction Scalp laceration Erectile dysfunction Segmental and somatic dysfunction of abdomen and other regions Rib pain on right side Chronic right shoulder pain Segmental and somatic dysfunction of rib cage Lumbar region somatic dysfunction Thoracic region somatic dysfunction Cervical somatic dysfunction Cranial somatic dysfunction Vasculogenic erectile dysfunction Post-void dribbling Lower urinary tract symptoms (LUTS) Actinic keratosis Sleep apnea (~2014) Migraines (~1995) Headache (~1995) Shoulder pain (~1999) Fractures (~1983) Carpal tunnel syndrome (~2014) Ankle pain (~2001) Herpes (~1995) Tinnitus (~2009) Hearing loss History of urinary incontinence (~2019) Skin cancer (~2012) Melanoma (~2009) Chronic neck and back pain Sciatic pain GERD (gastroesophageal reflux disease) (~2011) Hypothyroidism (acquired) Fibromyalgia (~2014) 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, with status migrainosus Surgical History S/P insertion of spinal cord stimulator S/P lumbar spinal fusion Anesthesia Pyloric stenosis (~1942) History of fusion of cervical spine History of heart artery stent (~2012) S/P TURP (status post transurethral resection of prostate) History of hernia repair History of laminectomy (~2003) History of fusion of cervical spine (~1995) History of carpal tunnel surgery History of lumbar fusion (~2000) Family History Father CAD (coronary artery disease) Diabetes mellitus History of heart disease Hypertension Congestive heart failure Mother Congestive heart failure Sister Cancer Hypertension Hyperlipidemia Social History household members: friend(s) Smoking Status: Never smoker Meds Home Medications and Allergies Home Medications Medication Instructions Recorded Confirmed Type aspirin 81 mg tablet,delayed 81 mg PO DAILY 01/13/23 01/12/24 History release (Adult Low Dose Aspirin) ezetimibe 10 mg tablet 10 mg PO DAILY 01/13/23 01/12/24 History melatonin 5 mg PO BEDTIME sleep 01/13/23 01/12/24 History omega-3 acid ethyl esters 1 cap PO DAILY 01/13/23 01/12/24 History levothyroxine 75 mcg tablet 75 mcg PO DAILY #90 tabs 04/08/23 01/12/24 Rx naratriptan 2.5 mg tablet See Rx Instructions .Route 04/08/23 01/12/24 Rx .COMPLEX #27 tabs tramadol 50 mg tablet See Rx Instructions .Route 04/08/23 01/12/24 Rx .COMPLEX #30 tabs rosuvastatin 40 mg tablet 40 mg PO DAILY 06/29/23 01/12/24 History Disabled parking permit #1 ea 09/13/23 01/12/24 Rx methocarbamol 750 mg tablet 750 mg PO DAILY 09/13/23 01/12/24 History hydrocodone 5 mg-acetaminophen 325 1 tab PO Q8H PRN pain #30 tabs 12/13/23 01/12/24 Rx mg tablet mirabegron 50 mg tablet,extended 50 mg PO DAILY #90 tabs 01/02/24 01/12/24 Rx release 24 hr sildenafil 100 mg tablet 100 mg PO DAILY PRN sexual 01/02/24 01/12/24 Rx activity #10 tabs omeprazole 20 mg capsule,delayed 20 mg PO BID 01/12/24 01/12/24 History release pregabalin 200 mg PO BID 01/12/24 01/12/24 History Allergies Allergy/AdvReac Type Severity Reaction Status Date / Time clopidogrel [From Plavix] Allergy Verified 12/29/23 15:49 tizanidine [From Zanaflex] Allergy Verified 12/29/23 15:49 honey AdvReac Gastrointestinal Verified 12/29/23 15:49 Upset Review of Systems Review of Systems Narrative: All other systems reviewed with the patient and are negative unless otherwise stated. Exam Vital Signs (past 8 hours): - 01/12/24 04:47 01/12/24 05:05 01/12/24 06:49 Temperature 99.5 F 100.1 F H Pulse Rate 79 Respiratory Rate 17 Blood Pressure 101/60 107/70 Pulse Oximetry 98 Oxygen Delivery Method Oxygen Flow Rate Fraction of Inspired Oxygen 1 01/12/24 07:36 01/12/24 07:37 01/12/24 09:44 Temperature 99.8 F H 99.8 F H 100.9 F H Pulse Rate 82 115 H Respiratory Rate 18 30 H Blood Pressure 107/70 185/103 H Pulse Oximetry 96 100 Oxygen Delivery Method Oxygen Flow Rate 10 Fraction of Inspired Oxygen 01/12/24 10:20 01/12/24 10:34 01/12/24 10:49 Temperature 99.1 F 103.2 F H Pulse Rate 81 97 H Respiratory Rate 16 20 Blood Pressure 119/70 114/69 Pulse Oximetry 96 96 96 Oxygen Delivery Method Oximask Oxygen Flow Rate 0 9 9 Fraction of Inspired Oxygen 01/12/24 10:53 01/12/24 11:45 Temperature 103.2 F H 101.3 F H Pulse Rate Respiratory Rate Blood Pressure Pulse Oximetry Oxygen Delivery Method Oxygen Flow Rate Fraction of Inspired Oxygen Fraction of Inspired Oxygen 1 Oxygen Delivery Method Oximask Oxygen Flow Rate 9 Narrative Exam Narrative: General:? Patient is well developed and well nourished, acutely ill appearing with rigors ongoing HEENT:? Normocephalic, atraumatic, extraocular muscles intact, oral pharynx is clear and mucous membranes are moist. Neck: supple and symmetric, trachea is midline, no cervical adenopathy. Chest:? Normal AP diameter and contour without kyphoscoliosis, no tachypnea, equal chest rise bilaterally. Lungs:? CTA b/l, upper airway wheezing Cardio:?tachycardic regular rhythm no m/r/g. Abdomen: S NT ND. Musculoskeletal:? Muscle strength and tone are equal within normal limits, no deformity. Extremities: No edema or joint effusions. No cyanosis or clubbing. Skin:? Pale,? Warm to touch,dry and intact without rashes, ulcerations or petechiae.? Objective Labs 01/12/24 06:28 01/12/24 06:28 Labs: Laboratory Results - last 24 hr 01/11/24 01/11/24 01/11/24 20:15 22:05 22:15 WBC 12.8 H RBC 4.96 Hgb 14.8 Hct 43.9 MCV 88.6 MCH 29.8 MCHC 33.7 RDW 15.5 H Plt Count 121 L Neut % (Auto) 85.8 H Lymph % (Auto) 12.4 L Ramsey % (Auto) 1.2 L Eos % (Auto) 0.2 L Baso % (Auto) 0.4 Neut # (Auto) 54599 H Lymph # (Auto) 1600 Ramsey # (Auto) 100 Eos # (Auto) 0 Baso # (Auto) 0 Sodium 137 Potassium 4.4 Chloride 100 Carbon Dioxide 24 BUN 13 Creatinine 0.90 Estimated GFR > 60 BUN/Creatinine Ratio 14.4 Glucose 132 H Lactate 3.1 H Calcium 9.6 Magnesium Total Bilirubin 1.2 AST 56 ALT 41 Alkaline Phosphatase 86 Total Protein 8.2 Albumin 5.0 Globulin 3.2 Albumin/Globulin Ratio 1.6 Lipase 43 Procalcitonin 0.071 Urine RBC 0-1/hpf Urine WBC 30-100/hpf H Ur Squamous Epith Cells 0-1 /hpf Urine Bacteria Many (>30) H Ur Culture Indicated? Specimen cultured Vol Urine Centrifuged 10ml (spun) A.calcoaceticus-baumannii cmplx PCR Not detected Chlamy pneumoniae PCR Not detected Adenovirus (PCR) Not detected Bacteroides fragilis Not detected B.parapertussis DNA PCR Not detected Selina albicans (PCR) Not detected Selina auris (PCR) Not detected C. glabrata (PCR) Not detected C. krusei (PCR) Not detected C. parapsilosis (PCR) Not detected C. tropicalis (PCR) Not detected Coronavirus OC43 (PCR) Not detected Coronavirus HKU1 (PCR) Not detected Coronavirus 229E (PCR) Not detected SARS-CoV-2 (PCR) Not detected Coronavirus NL63 (PCR) Not detected C. neoform/gattii (PCR) Not detected Enterobacterales (PCR) Detected E. cloacae complex PCR Not detected Enterococc faecalis PCR Not detected Enterococc faecium PCR Not detected E. coli (PCR) Not detected H. influenzae (PCR) Not detected Human Metapneumovir PCR Not detected Influenza Type A (PCR) Not detected Influenza Type B (PCR) Not detected Klebsiella aerogenes (PCR) Not detected Klebsiella oxytoca PCR Not detected Klebsiella pneumoniae Detected List. monocytogenes PCR Not detected M. pneumoniae (PCR) Not detected N. meningitidis (PCR) Not detected Parainfluenza 1 (PCR) Not detected Parainfluenza 2 (PCR) Not detected Parainfluenza 3 (PCR) Not detected Parainfluenza 4 (PCR) Not detected Proteus species (PCR) Not detected RSV (PCR) Not detected Entero/Rhino (PCR) Not detected Salmonella spp. (PCR) Not detected Serratia marcescens PCR Not detected Staphylococcus sp PCR Not detected Staph aureus (PCR) Not detected mecA/C & MREJ Resist Gene Not applicable mecA/C-Methicil Resis Gene Not applicable mcr-1 Colistin Res Gene PCR Not detected Staph epidermidis (PCR) Not detected Staph lugdunensis PCR Not detected S. maltophilia (PCR) Not detected Streptococcus sp PCR Not detected Group A Strep (PCR) Not detected Strep agalactiae (PCR) Not detected Strep pneumoniae (PCR) Not detected P. aeruginosa (PCR) Not detected Michele/B-Vanco Res Genes Not applicable blaIMP Car res Gene PCR Not detected KPC-Carbap Res Gene PCR Not detected blaNDM Car Res Gene PCR Not detected OXA-48 Carbapenem Resis Gene (PCR) Not detected blaVIM Car Res Gene PCR Not detected CTX-M Gene Resistance (PCR) Not detected 01/12/24 01/12/24 01/12/24 00:13 06:28 08:42 WBC 10.1 RBC 4.53 Hgb 13.6 Hct 40.1 L MCV 88.6 MCH 30.0 MCHC 33.8 RDW 15.3 H Plt Count 69 L Neut % (Auto) 94.2 H Lymph % (Auto) 1.9 L Ramsey % (Auto) 3.7 Eos % (Auto) 0.1 L Baso % (Auto) 0.1 Neut # (Auto) 9500 H Lymph # (Auto) 200 L Ramsey # (Auto) 400 Eos # (Auto) 0 Baso # (Auto) 0 Sodium 136 L Potassium 4.7 Chloride 105 Carbon Dioxide 24 BUN 14 Creatinine 0.86 Estimated GFR > 60 BUN/Creatinine Ratio 16.3 Glucose 97 Lactate 1.2 2.1 2.4 H Calcium 8.7 Magnesium 2.0 Total Bilirubin 1.5 H AST 44 ALT 33 Alkaline Phosphatase 64 Total Protein 6.3 Albumin 3.8 Globulin 2.5 Albumin/Globulin Ratio 1.5 Lipase Procalcitonin Urine RBC Urine WBC Ur Squamous Epith Cells Urine Bacteria Ur Culture Indicated? Vol Urine Centrifuged A.calcoaceticus-baumannii cmplx PCR Chlamy pneumoniae PCR Adenovirus (PCR) Bacteroides fragilis B.parapertussis DNA PCR Selina albicans (PCR) Selina auris (PCR) C. glabrata (PCR) C. krusei (PCR) C. parapsilosis (PCR) C. tropicalis (PCR) Coronavirus OC43 (PCR) Coronavirus HKU1 (PCR) Coronavirus 229E (PCR) SARS-CoV-2 (PCR) Coronavirus NL63 (PCR) C. neoform/gattii (PCR) Enterobacterales (PCR) E. cloacae complex PCR Enterococc faecalis PCR Enterococc faecium PCR E. coli (PCR) H. influenzae (PCR) Human Metapneumovir PCR Influenza Type A (PCR) Influenza Type B (PCR) Klebsiella aerogenes (PCR) Klebsiella oxytoca PCR Klebsiella pneumoniae List. monocytogenes PCR M. pneumoniae (PCR) N. meningitidis (PCR) Parainfluenza 1 (PCR) Parainfluenza 2 (PCR) Parainfluenza 3 (PCR) Parainfluenza 4 (PCR) Proteus species (PCR) RSV (PCR) Entero/Rhino (PCR) Salmonella spp. (PCR) Serratia marcescens PCR Staphylococcus sp PCR Staph aureus (PCR) mecA/C & MREJ Resist Gene mecA/C-Methicil Resis Gene mcr-1 Colistin Res Gene PCR Staph epidermidis (PCR) Staph lugdunensis PCR S. maltophilia (PCR) Streptococcus sp PCR Group A Strep (PCR) Strep agalactiae (PCR) Strep pneumoniae (PCR) P. aeruginosa (PCR) Michele/B-Vanco Res Genes blaIMP Car res Gene PCR KPC-Carbap Res Gene PCR blaNDM Car Res Gene PCR OXA-48 Carbapenem Resis Gene (PCR) blaVIM Car Res Gene PCR CTX-M Gene Resistance (PCR) Assessment & Plan Assessment & Plan narrative: 1. Sepsis with acute respiratory failure with hypoxia, thrombocytopenia, hyperbilirubinemia secondary to gram negative bacteremia - Blood cultures and urine cultures with gram negative bacilli. PCR notable for enterobacterales and klebsiella pneumoniae - initially on ceftriaxone, with continued rigors will broaden to meropenem for possible ESBL organism, can narrow once cultures are finalized. - continue to monitor cbc, cmp daily in setting of sepsis. Tbili 1.5 and Plt down to 69. - rapid response called 01/11 for rigors, now improved. 2. HTN - not currently on medical therapy at home 3. Chronic low back pain - continue home lyrica. 4 hypothyroidism - continue home levothyroxine 5 GERD resume home PPI Code: Full, surrogate is patient's spouse DVT: SCDs with thrombocytopenia, can start loevnox when Plt count improving I have utilized all available immediate resources to obtain, update, or review the patient's current medications. Dispo: patient admitted under inpatient status. Unclear if will be able to discharge home or possible SNF, will have PT/OT evaluations. Additional history obtained via discussions with the overnight provider, bedside staff during rapid responses. These discussions contributed to the creation of the above assessment and plan. I have reviewed patient's presenting documentation, labs, and imaging personally. Time-Based Coding :: [TOTAL MINUTES] spent with patient and on the chart (including review of chart, obtaining history, exam, reviewing outside data, placing orders, documenting exam and treatment plan, and counseling patient) on [DATE].
--- NOTE | 2024-01-12 14:59 | CM.DANOTE ---
Brief DCP Assessment note pt is a 78yo M here under INPT status found to have UTI/bacteremia PCP Eddie Garcia Payer Medicare and Ralph DAMIAN reviewed EMR. Per chart review/provider report, pt had rapid response called this morning. Pt was rigoring, changed abx plan and pt improved. Cultures pending to have abx finalized. Per chart, pt lives with spouse in [place]. Per RN report, pt was ambulatory prior to rapid response being called. Per provider PN, OT/PT evals to follow when pt medically appropriate. DISTRICT MANAGER [employer] SAL[employer] unable to meet with pt or spouse today. DCP needs pending. P: DCP pending abx need/PT/OT evals. CM team will continue to follow closely. NATI Armstrong Discharge Planning/Care Management CM Discharge Assessment Start: 01/12/24 14:41 Freq: Status: Active Protocol: Document 01/12/24 14:41 (Rec: 01/12/24 14:58 [id number]) Discharge Planning Assessment Assigned Credit Control Manager NATI Davison DPOA/Assigned Designee Name Denise spouse Contact Information [phone] Advance Directives? Yes Advance Directives on File Yes History Provided By Patient,Medical Record Prior Living Arrangements House Independent with ADL's Yes Discharge Plan Home Additional Comment PT/OT evals pending, need for IV abx pending Whiteboard Updated in Patient Room with No name and ext. # of Credit Control Manager Review Status In Process Please Provide Date Initial DC 01/12/24 Assessment Was Performed Next Review Type Continued Stay Review
[2024-01-13] VITALS (7 sets, daily range): BP systolic 114–140; BP diastolic 59–83; PULSE 66–79; RESP 16–20; TEMP 36.7–38.1; O2SAT 95–98
[2024-01-13] MEDS: MEROPENEM 2 GM in SODIUM CHLORIDE 0.9% 100 ML IV ×3 (01:21→17:08)
[2024-01-13] MEDS: LEVOTHYROXINE 75 MCG TABLET PO (06:07)
[2024-01-13] MEDS: HYDROCODONE/ACET 5/325 TABLET 1 TAB PO ×2 (06:11→16:05)
[2024-01-13] MEDS: IBUPROFEN 400 MG TABLET PO ×2 (06:12→17:44)
[2024-01-13] MEDS: EZETIMIBE 10 MG TABLET PO (08:43)
[2024-01-13] MEDS: PANTOPRAZOLE DR 20 MG TABLET PO (08:43)
[2024-01-13] MEDS: methocarbamoL 500 MG TABLET 750 MG PO (08:44)
[2024-01-13] MEDS: ATORVASTATIN 20 MG TABLET 80 MG PO (08:44)
[2024-01-13] MEDS: ASPIRIN EC 81 MG TABLET PO (08:44)
[2024-01-13] MEDS: PREGABALIN 25 MG CAPSULE 50 MG PO ×2 (08:44→20:22)
[2024-01-13] MEDS: PREGABALIN 75 MG CAPSULE 150 MG PO ×2 (08:44→20:22)
--- NOTE | 2024-01-13 11:38 | CM.DPNOTE ---
DCP ntoe GEOGRAPHIC INFORMATION SCIENTIST reviewed EMR. Per RN, pt doing much better today. Ambulating well, indep in room. Per hospitalist in morning rounds, pt will likely dc on PO abx. Another day or so. No obvious CM needs P: anticipate dc home with spouse support when medically stable. CM team will continue to follow as needed Linda Liriano GEOGRAPHIC INFORMATION SCIENTIST
--- NOTE | 2024-01-13 13:41 | PM.PN.1 ---
Subjective Subjective Date Patient Seen: 01/13/24 Time Patient Seen: 09:45 Interval history: Alfredo is a 78 years old male with a past medical history of hypertension, GERD, dyslipidemia, neuropathy, chronic back pain, fibromyalgia, hypothyroidism, chronic migraine, spinal cord stimulator, lumbar spinal fusion, multiple other medical issues was brought to the emergency room for fever chills rigors with urinary urgency and frequency. Started off as a urinary urgency with frequency and some dysuria the past 2 hours in the past 24 hours and subsequently developed fever episodes. Denies any chest pain. Does have occasional shortness of breath with no significant cough. Denies any nausea or vomiting though does have some mild abdominal discomfort in the suprapubic region. Has chronic urinary issues and being followed up by urology in the outpatient setting. In the past was noted to have urethral stricture with urethral false passage and was scheduled for laser unroofing of bulbar urethral false passage. Now currently in the ED, noted to have a temperature of 101.9 with a systolic blood pressure 180. Also tachycardic with a pulse in the 100. Labs revealed a white count of 12.8 with a hemoglobin of 14.8 and platelet count of 121. Sodium 137 with a BUN of 13 and a creatinine of 0.9. Blood sugar was 132. Urinalysis show many bacteria 3200 WBCs. Viral screen is negative. Lactate is 1.2.. CT abdomen pelvis shows evidence of bowel obstruction no acute process. Patient was initiated on IV Rocephin and admitted for further evaluation This morning patient was rigoring. Rapid response called. Vitals were okay no interventions recommended at the time other than changing from ceftriaxone to meropenem given healthcare contact recently. Blood cultures are positive in 4/4 bottles for gram negative bacilli. Now improved. Interval history: The patient reports feeling significantly better. He is sitting up and appears comfortable. He has gotten up and walked in the room. He has no specific complaints today other than feeling mildly weak. Exam Vital Signs (past 8 hours): - 01/13/24 06:00 01/13/24 08:00 Temperature 99.2 F 98.0 F Pulse Rate 68 66 Respiratory Rate 20 16 Blood Pressure 118/59 L 117/69 Pulse Oximetry 96 95 Fraction of Inspired Oxygen 1 Oxygen Delivery Method Oximask Oxygen Flow Rate 3 Narrative Exam Narrative: General:? Patient is well developed and well nourished, appears comfortable, in no apparent distress, sitting up in chair. HEENT:? Normocephalic, atraumatic, extraocular muscles intact, oral pharynx is clear and mucous membranes are moist. Neck: supple and symmetric, trachea is midline, no cervical adenopathy. Lungs:? Clear to auscultation bilaterally. Cardio:? Regular rate and rhythm no m/r/g. Abdomen: S NT ND. Musculoskeletal:? Muscle strength and tone are equal within normal limits, no deformity. He is wearing his bone stimulator device following back surgery in July. Extremities: No edema or joint effusions. No cyanosis or clubbing. Skin:? Pale,? Warm to touch,dry and intact without rashes, ulcerations or petechiae.? Objective Labs 01/12/24 06:28 01/12/24 06:28 Labs: Laboratory Results - last 24 hr 01/11/24 22:05 A.calcoaceticus-baumannii cmplx PCR Not detected Bacteroides fragilis Not detected Selina albicans (PCR) Not detected Selina auris (PCR) Not detected C. glabrata (PCR) Not detected C. krusei (PCR) Not detected C. parapsilosis (PCR) Not detected C. tropicalis (PCR) Not detected C. neoform/gattii (PCR) Not detected Enterobacterales (PCR) Detected E. cloacae complex PCR Not detected Enterococc faecalis PCR Not detected Enterococc faecium PCR Not detected E. coli (PCR) Not detected H. influenzae (PCR) Not detected Klebsiella aerogenes (PCR) Not detected Klebsiella oxytoca PCR Not detected Klebsiella pneumoniae Detected List. monocytogenes PCR Not detected N. meningitidis (PCR) Not detected Proteus species (PCR) Not detected Salmonella spp. (PCR) Not detected Serratia marcescens PCR Not detected Staphylococcus sp PCR Not detected Staph aureus (PCR) Not detected mecA/C & MREJ Resist Gene Not applicable mecA/C-Methicil Resis Gene Not applicable mcr-1 Colistin Res Gene PCR Not detected Staph epidermidis (PCR) Not detected Staph lugdunensis PCR Not detected S. maltophilia (PCR) Not detected Streptococcus sp PCR Not detected Group A Strep (PCR) Not detected Strep agalactiae (PCR) Not detected Strep pneumoniae (PCR) Not detected P. aeruginosa (PCR) Not detected Michele/B-Vanco Res Genes Not applicable blaIMP Car res Gene PCR Not detected KPC-Carbap Res Gene PCR Not detected blaNDM Car Res Gene PCR Not detected OXA-48 Carbapenem Resis Gene (PCR) Not detected blaVIM Car Res Gene PCR Not detected CTX-M Gene Resistance (PCR) Not detected PFSH Medical History ZACH (stress urinary incontinence), male BPH NOS w ur obs/LUTS Urethral false passage Headache, chronic migraine without aura Spondylolisthesis at L4-L5 level Cervical fusion syndrome Lung nodule Encounter for initial annual wellness visit (AWV) in Medicare patient Hypothyroidism Fever Cough Somatic dysfunction of lower extremity Stiffness of finger joint of right hand Removal of staple Sacral region somatic dysfunction Pelvic somatic dysfunction Scalp laceration Erectile dysfunction Segmental and somatic dysfunction of abdomen and other regions Rib pain on right side Chronic right shoulder pain Segmental and somatic dysfunction of rib cage Lumbar region somatic dysfunction Thoracic region somatic dysfunction Cervical somatic dysfunction Cranial somatic dysfunction Vasculogenic erectile dysfunction Post-void dribbling Lower urinary tract symptoms (LUTS) Actinic keratosis Sleep apnea (~2014) Migraines (~1995) Headache (~1995) Shoulder pain (~1999) Fractures (~1983) Carpal tunnel syndrome (~2014) Ankle pain (~2001) Herpes (~1995) Tinnitus (~2009) Hearing loss History of urinary incontinence (~2019) Skin cancer (~2012) Melanoma (~2009) Chronic neck and back pain Sciatic pain GERD (gastroesophageal reflux disease) (~2011) Hypothyroidism (acquired) Fibromyalgia (~2014) 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, with status migrainosus Surgical History S/P insertion of spinal cord stimulator S/P lumbar spinal fusion Anesthesia Pyloric stenosis (~194) History of fusion of cervical spine History of heart artery stent (~2012) S/P TURP (status post transurethral resection of prostate) History of hernia repair History of laminectomy (~2003) History of fusion of cervical spine (~1995) History of carpal tunnel surgery History of lumbar fusion (~2000) Family History Father CAD (coronary artery disease) Diabetes mellitus History of heart disease Hypertension Congestive heart failure Mother Congestive heart failure Sister Cancer Hypertension Hyperlipidemia Social History household members: friend(s) Smoking Status: Never smoker Assessment & Plan Assessment & Plan narrative: 1. Sepsis with acute respiratory failure with hypoxia, thrombocytopenia, hyperbilirubinemia secondary to gram negative bacteremia - the patient has a complex urologic history, with history of TURP, and recent evaluations for possible chronic prostatitis. - Blood cultures and urine cultures with gram negative bacilli, with urine culture in Klebsiella pneumonia. Blood cultures are pending. PCR notable for enterobacterales and klebsiella pneumoniae - initially on ceftriaxone, with continued rigors will broaden to meropenem for possible ESBL organism, can narrow once cultures are finalized. - continue to monitor cbc, cmp daily in setting of sepsis. Tbili 1.5 and Plt down to 69. - rapid response called 01/11 for rigors, now improved. 2. HTN - not currently on medical therapy at home 3. Chronic low back pain - continue home lyrica. 4 hypothyroidism - continue home levothyroxine 5 GERD continue home PPI Code: Full, surrogate is patient's spouse DVT: SCDs with thrombocytopenia, can start loevnox when Plt count improving, though much improved and ambulatory at this point Dispo: patient admitted under inpatient status. Given marked improvement anticipate discharge home in 1-2 days. Time-Based Coding :: [TOTAL MINUTES] spent with patient and on the chart (including review of chart, obtaining history, exam, reviewing outside data, placing orders, documenting exam and treatment plan, and counseling patient) on [DATE]. PROFEE Charge codes Subsequent inpatient/observation care: [id number]
[2024-01-14 01:00] VITALS: BP 134/83; PULSE 66; RESP 18; TEMP 37; O2SAT 96
[2024-01-14] MEDS: MEROPENEM 2 GM in SODIUM CHLORIDE 0.9% 100 ML IV (01:16)
[2024-01-14 05:21] LABS: Add Manual Diff / Slide Review NO; Basophils Absolute Auto 0 /uL (0-100); Basophils Percent Auto 0.4 % (0-2); Eosinophils Absolute Auto 100 /uL (0-450); Eosinophils Percent Auto 1.9 % (2-4); Hematocrit 35.1 % (41-53); Hemoglobin 12.2 g/dL (13.5-17.5); Lymphocytes Absolute Auto 600 /uL (1100-4500); Lymphocytes Percent Auto 9.5 % (25-40); Mean Corpuscular HGB Conc 34.8 % (30-36); Mean Corpuscular Hemoglobin 30.1 PG (26-34); Mean Corpuscular Volume 86.4 fL (80-100); Monocytes Absolute Auto 700 /uL (0-900); Monocytes Percent Auto 10.2 % (3-14); Neutrophils Absolute Auto 5100 /uL (1500-7000); Platelet Count 71 X10^3/uL (150-400); Red Blood Cell Count 4.06 X10^6/uL (4.5-5.9); White Blood Cell Count 6.5 X10^3/uL (4.5-11.0)
[2024-01-14 05:36] LABS: BUN Creatinine Ratio 27.5 (6-22); Blood Urea Nitrogen 19 mg/dL (9-20); Calcium 8.6 mg/dL (8.4-10.2); Carbon Dioxide 22 mmol/L (22-32); Chloride 108 mmol/L (98-107); Estimated Glomerular Filt Rate > 60 mL/min (>60); Glucose 94 mg/dL (80-110); HEMOLYSIS < 15 (0-50); Potassium 3.9 mmol/L (3.4-5.1); Sodium 136 mmol/L (137-145)
[2024-01-14] MEDS: LEVOTHYROXINE 75 MCG TABLET PO (06:35)
[2024-01-14] MEDS: methocarbamoL 500 MG TABLET 750 MG PO (09:46)
[2024-01-14] MEDS: MIRABEGRON 50 MG 1 EACH PO (09:46)
[2024-01-14] MEDS: PREGABALIN 25 MG CAPSULE 50 MG PO ×2 (09:46→20:21)
[2024-01-14] MEDS: PANTOPRAZOLE DR 20 MG TABLET PO (09:46)
[2024-01-14] MEDS: ATORVASTATIN 20 MG TABLET 80 MG PO (09:47)
[2024-01-14] MEDS: ASPIRIN EC 81 MG TABLET PO (09:47)
[2024-01-14] MEDS: PREGABALIN 75 MG CAPSULE 150 MG PO ×2 (09:47→20:21)
[2024-01-14] MEDS: EZETIMIBE 10 MG TABLET PO (09:48)
[2024-01-14] MEDS: HYDROCODONE/ACET 5/325 TABLET 1 TAB PO (09:49)
--- NOTE | 2024-01-14 10:58 | P.PN_ITS ---
Subjective Subjective Date Patient Seen: 01/14/24 Time Patient Seen: 09:40 Interval history: Alfredo is a 78 years old male with a past medical history of hypertension, GERD, dyslipidemia, neuropathy, chronic back pain, fibromyalgia, hypothyroidism, chronic migraine, spinal cord stimulator, lumbar spinal fusion, multiple other medical issues was brought to the emergency room for fever chills rigors with urinary urgency and frequency. Started off as a urinary urgency with frequency and some dysuria the past 2 hours in the past 24 hours and subsequently developed fever episodes. Denies any chest pain. Does have occasional shortness of breath with no significant cough. Denies any nausea or vomiting though does have some mild abdominal discomfort in the suprapubic region. Has chronic urinary issues and being followed up by urology in the outpatient setting. In the past was noted to have urethral stricture with urethral false passage and was scheduled for laser unroofing of bulbar urethral false passage. Now currently in the ED, noted to have a temperature of 101.9 with a systolic blood pressure 180. Also tachycardic with a pulse in the 100. Labs revealed a white count of 12.8 with a hemoglobin of 14.8 and platelet count of 121. Sodium 137 with a BUN of 13 and a creatinine of 0.9. Blood sugar was 132. Urinalysis show many bacteria 3200 WBCs. Viral screen is negative. Lactate is 1.2.. CT abdomen pelvis shows evidence of bowel obstruction no acute process. Patient was initiated on IV Rocephin and admitted for further evaluation This morning patient was rigoring. Rapid response called. Vitals were okay no interventions recommended at the time other than changing from ceftriaxone to meropenem given healthcare contact recently. Blood cultures are positive in 4/4 bottles for gram negative bacilli. Now improved. Interval history: The patient reports that he had poor sleep last night, with a low-grade fever and rigors, but feels this is improving nightly. He is anxious about this occurring again tonight and being he and his being unable to care for himself at home. Exam Vital Signs (past 8 hours): - 01/14/24 09:30 Oxygen Delivery Method Room Air Fraction of Inspired Oxygen 1 Oxygen Delivery Method Room Air Oxygen Flow Rate 0 Narrative Exam Narrative: General:? Patient is well developed and well nourished, appears comfortable, in no apparent distress, sitting up in chair. HEENT:? Normocephalic, atraumatic, extraocular muscles intact. Neck: supple and symmetric, trachea is midline, no cervical adenopathy. Lungs:? Clear to auscultation bilaterally. Cardio:? Regular rate and rhythm no m/r/g. Abdomen: S NT ND. Musculoskeletal:? Muscle strength and tone are equal within normal limits, no deformity. He is wearing his bone stimulator device following back surgery in July. Extremities: No edema. Skin:? Pale,? Warm to touch,dry and intact without rashes, ulcerations or petechiae.? Objective Labs 01/14/24 04:42 01/14/24 04:42 Labs: Laboratory Results - last 24 hr 01/14/24 04:42 WBC 6.5 RBC 4.06 L Hgb 12.2 L Hct 35.1 L MCV 86.4 MCH 30.1 MCHC 34.8 RDW 16.0 H Plt Count 71 L Neut % (Auto) 78.0 H Lymph % (Auto) 9.5 L [place] % (Auto) 10.2 Eos % (Auto) 1.9 L Baso % (Auto) 0.4 Neut # (Auto) 5100 Lymph # (Auto) 600 L [place] # (Auto) 700 Eos # (Auto) 100 Baso # (Auto) 0 Sodium 136 L Potassium 3.9 Chloride 108 H Carbon Dioxide 22 BUN 19 Creatinine 0.69 Estimated GFR > 60 BUN/Creatinine Ratio 27.5 H Glucose 94 Calcium 8.6 PFSH Medical History ZACH (stress urinary incontinence), male BPH NOS w ur obs/LUTS Urethral false passage Headache, chronic migraine without aura Spondylolisthesis at L4-L5 level Cervical fusion syndrome Lung nodule Encounter for initial annual wellness visit (AWV) in Medicare patient Hypothyroidism Fever Cough Somatic dysfunction of lower extremity Stiffness of finger joint of right hand Removal of staple Sacral region somatic dysfunction Pelvic somatic dysfunction Scalp laceration Erectile dysfunction Segmental and somatic dysfunction of abdomen and other regions Rib pain on right side Chronic right shoulder pain Segmental and somatic dysfunction of rib cage Lumbar region somatic dysfunction Thoracic region somatic dysfunction Cervical somatic dysfunction Cranial somatic dysfunction Vasculogenic erectile dysfunction Post-void dribbling Lower urinary tract symptoms (LUTS) Actinic keratosis Sleep apnea (~2014) Migraines (~1995) Headache (~1995) Shoulder pain (~1999) Fractures (~1983) Carpal tunnel syndrome (~2014) Ankle pain (~2001) Herpes (~1995) Tinnitus (~2009) Hearing loss History of urinary incontinence (~2019) Skin cancer (~2012) Melanoma (~2009) Chronic neck and back pain Sciatic pain GERD (gastroesophageal reflux disease) (~2011) Hypothyroidism (acquired) Fibromyalgia (~2014) 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, with status migrainosus Surgical History S/P insertion of spinal cord stimulator S/P lumbar spinal fusion Anesthesia Pyloric stenosis (~1942) History of fusion of cervical spine History of heart artery stent (~2012) S/P TURP (status post transurethral resection of prostate) History of hernia repair History of laminectomy (~2003) History of fusion of cervical spine (~1995) History of carpal tunnel surgery History of lumbar fusion (~2000) Family History Father CAD (coronary artery disease) Diabetes mellitus History of heart disease Hypertension Congestive heart failure Mother Congestive heart failure Sister Cancer Hypertension Hyperlipidemia Social History household members: friend(s) Smoking Status: Never smoker Assessment & Plan Assessment & Plan narrative: 1. Sepsis with acute respiratory failure with hypoxia, thrombocytopenia, hyperbilirubinemia secondary to Klebsiella pneumonia in 2 of 2 blood cultures and urine culture. - the patient has a complex urologic history, with history of TURP, and recent evaluations for possible chronic prostatitis. - Blood cultures and urine cultures with Klebsiella pneumonia. PCR notable for enterobacterales and klebsiella pneumoniae - initially on ceftriaxone, with continued rigors will broaden to meropenem for possible ESBL organism, narrowed to levofloxacin 500 mg daily today. - continue to monitor clinically at that point given ongoing rigors. - rapid response called 01/11 for rigors, now improved. Possible discharge home tomorrow if resolved. 2. HTN - not currently on medical therapy at home. Continue to monitor 3. Chronic low back pain - continue home lyrica. 4 hypothyroidism - continue home levothyroxine 5 GERD continue home PPI Code: Full, surrogate is patient's spouse DVT: Lovenox Dispo: patient admitted under inpatient status. Given marked improvement anticipate discharge home tomorrow Time-Based Coding :: [TOTAL MINUTES] spent with patient and on the chart (including review of chart, obtaining history, exam, reviewing outside data, placing orders, documenting exam and treatment plan, and counseling patient) on [DATE]. PROFEE Charge codes Subsequent inpatient/observation care: [id number]
[2024-01-14] MEDS: levoFLOXacin 250 MG TABLET 500 MG PO (10:59)
--- NOTE | 2024-01-14 11:04 | CM.DPNOTE ---
DCP Note YARD MOTOR OPERATOR reviewed EMR. Per hospitalist in morning rounds, dc today vs tomorrow. No CM needs. YARD MOTOR OPERATOR met with pt in room, pt reports wanting to stay another night for abx. Provider in room, in agreement to dc tomorrow to monitor fevers. Pt denies any CM needs at this time. Spouse will pick him up Tuesday at 2pm. YARD MOTOR OPERATOR gave pt copy of IMM. P: dc home Tuesday with spouse support, transport with spouse at 2pm. No CM needs identified. CM team will follow as needed NATI Armstrong
[2024-01-14 11:52] VITALS: BP 135/83; PULSE 70; RESP 21; TEMP 36.9; O2SAT 95
[2024-01-14] MEDS: IBUPROFEN 400 MG TABLET PO (13:17)
[2024-01-14 18:00] VITALS: BP 124/78; PULSE 69; RESP 19; TEMP 37.3; O2SAT 93
[2024-01-14 20:00] VITALS: TEMP 36.7
--- NOTE | 2024-01-14 20:54 | PC.NURSE ---
Bilateral expiratory wheezing in upper lobes. No shortness of breath, 97% on room air. Nonproductive cough. Notified Dr Paniagua and ordered duo neb tx q4 hrs.
[2024-01-14] MEDS: ALBUTEROL/IPRATROPIUM 3 ML AMPUL INH (21:33)
[2024-01-15] VITALS: BP 126/75; PULSE 70; RESP 16; TEMP 37.1; O2SAT 95
[2024-01-15 06:00] VITALS: BP 149/91; PULSE 67; RESP 17; TEMP 37.3; O2SAT 97
[2024-01-15 06:32] VITALS: TEMP 37.3
[2024-01-15] MEDS: ACETAMINOPHEN 325 MG TABLET 650 MG PO (06:32)
[2024-01-15] MEDS: LEVOTHYROXINE 75 MCG TABLET PO (06:32)
[2024-01-15] MEDS: levoFLOXacin 250 MG TABLET 500 MG PO (06:32)
[2024-01-15 08:00] VITALS: BP 117/63; PULSE 79; RESP 16; TEMP 36.6; O2SAT 97
[2024-01-15] MEDS: ATORVASTATIN 20 MG TABLET 80 MG PO (09:35)
[2024-01-15] MEDS: PREGABALIN 25 MG CAPSULE 50 MG PO (09:39)
[2024-01-15] MEDS: EZETIMIBE 10 MG TABLET PO (09:39)
[2024-01-15] MEDS: methocarbamoL 500 MG TABLET 750 MG PO (09:40)
[2024-01-15] MEDS: ASPIRIN EC 81 MG TABLET PO (09:40)
[2024-01-15] MEDS: PREGABALIN 75 MG CAPSULE 150 MG PO (09:40)
[2024-01-15] MEDS: PANTOPRAZOLE DR 20 MG TABLET PO (09:40)
--- NOTE | 2024-01-15 11:01 | P.DS_ITS ---
History of Present Illness History of Present Illness Date Patient Seen: 01/15/24 Time Patient Seen: 08:40 Date of Onset of Symptoms: 01/12/24 Chief complaint: fever Narrative: Alfredo is a 78 years old male with a past medical history of hypertension, GERD, dyslipidemia, neuropathy, chronic back pain, fibromyalgia, hypothyroidism, chronic migraine, spinal cord stimulator, lumbar spinal fusion, multiple other medical issues was brought to the emergency room for fever chills rigors with urinary urgency and frequency. Started off as a urinary urgency with frequency and some dysuria the past 2 hours in the past 24 hours and subsequently developed fever episodes. Denies any chest pain. Does have occasional shortness of breath with no significant cough. Denies any nausea or vomiting though does have some mild abdominal discomfort in the suprapubic region. Has chronic urinary issues and being followed up by urology in the outpatient setting. In the past was noted to have urethral stricture with urethral false passage and was scheduled for laser unroofing of bulbar urethral false passage. Now currently in the ED, noted to have a temperature of 101.9 with a systolic blood pressure 180. Also tachycardic with a pulse in the 100. Labs revealed a white count of 12.8 with a hemoglobin of 14.8 and platelet count of 121. Sodium 137 with a BUN of 13 and a creatinine of 0.9. Blood sugar was 132. Urinalysis show many bacteria 3200 WBCs. Viral screen is negative. Lactate is 1.2.. CT abdomen pelvis shows evidence of bowel obstruction no acute process. Patient was initiated on IV Rocephin and admitted for further evaluation This morning patient was rigoring. Rapid response called. Vitals were okay no interventions recommended at the time other than changing from ceftriaxone to meropenem given healthcare contact recently. Blood cultures are positive in 4/4 bottles for gram negative bacilli. Now improved. Discharge Providers Provider Date of admission: 01/12/24 00:24 Discharge Date: 01/15/24 Primary care physician: Eddie Garcia DO Discharge provider: Guanako Mario MD Summary Hospital Course Discharge Diagnosis: 1. Septicemia due to acute prostatitis with acute respiratory failure with hypoxia, thrombocytopenia, hyperbilirubinemia due to Klebsiella pneumonia in 2 of 2 blood cultures and urine culture. 2. Hypertension 3. Chronic low back pain 4. Hypothyroidism 5. Gastroesophageal reflux disease. 6. Urethral false passage. 7. Reactive airways disease with history of intermittent chronic bronchitis dating to young adult Hospital Course: The patient was admitted administered broad-spectrum antibiotics, IV fluids, supplemental oxygen and bronchodilators. He continued to have daily fevers and rigors for the 1st 3 days which ultimately abated and resolved by the 3rd hospital day. Antibiotics coverage was broadened but ultimately narrowed and transition to oral antibiotics on the day prior to discharge. he has been noted to have a urethral false passage which developed at the time of back surgery 5 months ago, and has been followed by Urology on medication therapy and anticipating starting pelvic floor physiotherapy. Outpatient follow-up with urology advised along with primary care within the week. He was feeling well over the final day of admission and interested in discharge home with outpatient follow-up Status at Discharge Cognitive/behavioral status at discharge: oriented Functional status at discharge: independent ambulation Overall status at discharge: patient is back to baseline Time Spent with Patient Time spent: Less than 30 minutes Exam Vital Signs (past 8 hours): - 01/15/24 06:00 01/15/24 06:32 01/15/24 08:00 Temperature 99.2 F 99.2 F 97.9 F Pulse Rate 67 79 Respiratory Rate 17 16 Blood Pressure 149/91 H 117/63 Pulse Oximetry 97 97 Oxygen Delivery Method Oxygen Flow Rate 0 0 01/15/24 09:00 Temperature Pulse Rate Respiratory Rate Blood Pressure Pulse Oximetry Oxygen Delivery Method Room Air Oxygen Flow Rate Fraction of Inspired Oxygen 1 Oxygen Delivery Method Room Air Oxygen Flow Rate 0 Narrative Exam Narrative: General:? Patient is well developed and well nourished, appears comfortable, in no apparent distress, sitting up in chair. HEENT:? Normocephalic, atraumatic, extraocular muscles intact. Neck: supple and symmetric, trachea is midline, no cervical adenopathy. Lungs:? Clear to auscultation bilaterally. Cardio:? Regular rate and rhythm no m/r/g. Abdomen: S NT ND. Musculoskeletal:? Muscle strength and tone are equal within normal limits, no deformity. He is wearing his bone stimulator device following back surgery in July. Extremities: No edema. Skin:? Pale,? Warm to touch,dry and intact without rashes, ulcerations or petechiae.? Objective Labs 01/14/24 04:42 01/14/24 04:42 [facility] Medical History ZACH (stress urinary incontinence), male BPH NOS w ur obs/LUTS Urethral false passage Headache, chronic migraine without aura Spondylolisthesis at L4-L5 level Cervical fusion syndrome Lung nodule Encounter for initial annual wellness visit (AWV) in Medicare patient Hypothyroidism Fever Cough Somatic dysfunction of lower extremity Stiffness of finger joint of right hand Removal of staple Sacral region somatic dysfunction Pelvic somatic dysfunction Scalp laceration Erectile dysfunction Segmental and somatic dysfunction of abdomen and other regions Rib pain on right side Chronic right shoulder pain Segmental and somatic dysfunction of rib cage Lumbar region somatic dysfunction Thoracic region somatic dysfunction Cervical somatic dysfunction Cranial somatic dysfunction Vasculogenic erectile dysfunction Post-void dribbling Lower urinary tract symptoms (LUTS) Actinic keratosis Sleep apnea (~2014) Migraines (~1995) Headache (~1995) Shoulder pain (~1999) Fractures (~1983) Carpal tunnel syndrome (~2014) Ankle pain (~2001) Herpes (~1995) Tinnitus (~2009) Hearing loss History of urinary incontinence (~2019) Skin cancer (~2012) Melanoma (~2009) Chronic neck and back pain Sciatic pain GERD (gastroesophageal reflux disease) (~2011) Hypothyroidism (acquired) Fibromyalgia (~2014) 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, with status migrainosus Surgical History S/P insertion of spinal cord stimulator S/P lumbar spinal fusion Anesthesia Pyloric stenosis (~1942) History of fusion of cervical spine History of heart artery stent (~2012) S/P TURP (status post transurethral resection of prostate) History of hernia repair History of laminectomy (~2003) History of fusion of cervical spine (~1995) History of carpal tunnel surgery History of lumbar fusion (~2000) Family History Father CAD (coronary artery disease) Diabetes mellitus History of heart disease Hypertension Congestive heart failure Mother Congestive heart failure Sister Cancer Hypertension Hyperlipidemia Social History household members: friend(s) Smoking Status: Never smoker Discharge Plan Discharge Plan Patient Disposition: Home Provider Discharge Comment: Followup with Dr. Garcia 1 week Discharge orders & Medications Prescriptions: New levofloxacin 500 mg tablet 500 mg PO DAILY Qty: 10 0RF albuterol sulfate 90 mcg/actuation HFA aerosol inhaler 2 puff inhalation Q6H PRN (Reason: shortness of breath or wheezing) Qty: 8.5 0RF Continued sildenafil 100 mg tablet 100 mg PO DAILY PRN (Reason: sexual activity) Qty: 10 0RF Rx Instructions: administer 30 minutes to 4 hours before activity mirabegron 50 mg tablet extended release 24 hr 50 mg PO DAILY Qty: 90 0RF tramadol 50 mg tablet See Rx Instructions .ROUTE .COMPLEX Qty: 30 5RF Rx Instructions: Take 1 tablet by mouth every 6 hours as needed for naratriptan 2.5 mg tablet See Rx Instructions .ROUTE .COMPLEX Qty: 27 3RF Dose Instruction: TAKE ONE TABLET BY MOUTH NEEDED FOR MIGRAINE HEADACHE. MAY REPEAT AFTER TWO HOURS NEEDED Rx Instructions: TAKE ONE TABLET BY MOUTH NEEDED FOR MIGRAINE HEADACHE. MAY REPEAT AFTER TWO HOURS NEEDED levothyroxine 75 mcg tablet 75 mcg PO DAILY Qty: 90 3RF ezetimibe 10 mg tablet 10 mg PO DAILY aspirin [Adult Low Dose Aspirin] 81 mg tablet,delayed release (DR/EC) 81 mg PO DAILY omega-3 acid ethyl esters 1 cap PO DAILY melatonin 5 mg PO BEDTIME methocarbamol 750 mg tablet 750 mg PO DAILY (DME) Disabled parking permit See Rx Instructions .ROUTE .MEDSUPPLY Qty: 1 0RF Rx Instructions: I find this patient to be medically disabled and qualified for disabled parking as indicated, and signed, on the accompanying disabled parking application for individuals. hydrocodone-acetaminophen 5-325 mg tablet 1 tab PO Q8H PRN (Reason: pain) Qty: 30 0RF omeprazole 20 mg capsule,delayed release(DR/EC) 20 mg PO BID pregabalin 200 mg capsule 200 mg PO BID rosuvastatin 40 mg tablet 40 mg PO DAILY Follow up/Referrals: Eddie Garcia DO [Primary Care Provider] - Visit Report/Discharge Packet Instructions: Levofloxacin Stand Alone Forms: Patient Portal/API Discharge Data Primary Care Provider: Eddie Garcia Quality MIPS - Admit I confirm the patient?s Advance Care Plan is present, Code status is documented, Surrogate decision maker is in patient?s record [If Yes, STOP here]: Yes MIPS - Meds 'Current medications' to include all prescriptions, [id number] products, herbals, cannabis/cannabidiol products, and vitamin/mineral/dietary (nutritional) supplements. I have utilized all available resources to obtain, update, or review the patient?s current medications. [If Yes, STOP here]: Yes MIPS - DC The patient has a history of heart transplant or Left Ventricular Assist Device (LVAD). If yes, STOP here.: No The patient has current or prior documentation of left ventricular ejection fraction (LVEF) less than or equal to 40%, or moderate or severely depressed left ventricular systolic function.: No A. The patient was prescribed or already taking an Angiotensin-Converting Enzyme (KANDIS) Inhibitor, or Angiotensin Receptor Doni (ARB).: No B. The patient was prescribed or already taking a beta-doni. [If Yes to Both A & B, STOP here]: No Patient not prescribed/taking KANDIS or ARB, no reason given.: No Patient not prescribed/taking beta-doni, no reason given.: No PROFEE Charge Codes Discharge inpatient/observation: [id number]
--- NOTE | 2024-01-15 11:35 | PC.NURSE ---
Discharge patient note: Patient teaching done at bedside with pt. Patient states understanding of sched. f/u appt w/ PCP within 1 week post d/c from hosp. Patient is aware of new rx's sent to pt pharm. Belongings have been gathered by patient, declines any assistance in that regard. Call light w/ in reach, aware to call staff when ride arrives and is ready for departure.
--- NOTE | 2024-01-15 12:09 | PC.NURSE ---
Pt discharged home at 1205, escorted off floor in wheelchair accompanied by spouse and hospital staff. IV removed, discharge teaching completed including new medications, follow up appointment and worsening symptoms. Patient's own medications returned from pharmacy. Patient left the floor with all belongings.
== END 2024-01-15 12:11 | disposition home or self-care (01) | DRG 871 ==
LOC: ED 01-12 00:25 → AC 01-12 00:25
PROVIDERS: Internal Medicine; Admitting Provider Internal Medicine; Emergency Provider Emergency Medicine; Family Provider Family Medicine; PCP Family Medicine; Referring Provider Emergency Medicine; Visit Provider Internal Medicine
DX: A41.9 Sepsis, unspecified organism (principal); J96.01 Acute respiratory failure with hypoxia; N41.0 Acute prostatitis; E03.9 Hypothyroidism, unspecified; M54.50 Low back pain, unspecified; G43.909 Migraine, unspecified, not intractable, without status migrainosus; K21.9 Gastro-esophageal reflux disease without esophagitis; M54.10 Radiculopathy, site unspecified; I10 Essential (primary) hypertension; R65.20 Severe sepsis without septic shock; D69.6 Thrombocytopenia, unspecified; E80.6 Other disorders of bilirubin metabolism; B96.1 Klebsiella pneumoniae [K. pneumoniae] as the cause of diseases classified elsewhere; J45.909 Unspecified asthma, uncomplicated; Z87.09 Personal history of other diseases of the respiratory system
CPT/HCPCS: 36415; 51798; 71045; 71260; 74177; 80048; 80053; 81003; 81015; 83605; 83690; 83735; 84145; 85025; 87040; 87077; 87086; 87154; 87186; 87633; 94640; 94762; 96365; 96367; 96375; 99285; J0136; J0696; J1885; J2185; J7613; Q9967

== ENCOUNTER 2024-04-04 14:30 | Outpatient (RCR) | payer MEDICARE, OTHER, SELFPAY ==
[2022-12-29 14:02] VITALS: BMI 26.1
--- NOTE | 2023-10-04 13:35 | PT.OIE ---
Current Diagnoses Spondylolisthesis, lumbar region (10/04/23) Weakness (10/04/23) Past Medical History (Last Updated 09/13/23 @ 14:42 by Eddie Garcia DO) Actinic keratosis Ankle pain (~2001) BPH NOS w ur obs/LUTS Carpal tunnel syndrome (~2014) Cervical fusion syndrome Cervical somatic dysfunction Chronic migraine without aura, with status migrainosus Chronic neck and back pain Chronic right shoulder pain Cough Cranial somatic dysfunction Encounter for initial annual wellness visit (AWV) in Medicare patient Erectile dysfunction Fever Fibromyalgia (~2014) Fractures (~1983) GERD (gastroesophageal reflux disease) (~2011) Headache (~1995) Headache, chronic migraine without aura Hearing loss Hemicrania continua Herpes (~1995) History of urinary incontinence (~2019) Hypothyroidism Hypothyroidism (acquired) Lower urinary tract symptoms (LUTS) Lumbar region somatic dysfunction Lung nodule Melanoma (~2009) Migraines (~1995) Pelvic somatic dysfunction Post-void dribbling Removal of staple Rib pain on right side Sacral region somatic dysfunction Scalp laceration Sciatic pain Segmental and somatic dysfunction of abdomen and other regions Segmental and somatic dysfunction of rib cage Shoulder pain (~1999) Skin cancer (~2012) Sleep apnea (~2014) Somatic dysfunction of lower extremity Spondylolisthesis at L4-L5 level Stiffness of finger joint of right hand Thoracic region somatic dysfunction Tinnitus (~2009) Urethral false passage Urethral stricture Vasculogenic erectile dysfunction Past Surgical History (Last Reviewed 08/25/23 @ 15:50 by Paul Solano MD) Anesthesia History of carpal tunnel surgery History of fusion of cervical spine (~1995) History of fusion of cervical spine History of heart artery stent (~2012) History of hernia repair History of laminectomy (~2003) History of lumbar fusion (~2000) Pyloric stenosis (~1942) S/P insertion of spinal cord stimulator S/P lumbar spinal fusion S/P TURP (status post transurethral resection of prostate) Visit Care Team Role Provider Type Eddie Garcia DO Primary Care Provider Physician Specialty: [facility] Practice Address: [address] [place] [address], [address], [address] Email: .[employer] David Dewitt DO Family Provider Physician Specialty: Family Practice Address: [address] [place] [address], [id number] Email: Jose Carlos Khalil Attending Provider Non-Staff Referring Provider Specialty: Neurosurgery Address: [place], [address] Email: Physical Therapy Initial Evaluation PT-OP-A Visit Information Start: 10/03/23 16:35 Freq: Status: Active Protocol: Document 10/04/23 10:29 [facility] (Rec: 10/04/23 11:22 [facility] [id number]) Out-Patient Physical Therapy Visit Information Visit Information Visit Type Initial Evaluation Visit Start Time 10:29 Visit Stop Time 11:20 Visit Number 1 Evaluation Information Evaluation Date 10/04/23 PT-OP-B Current Condition Start: 10/03/23 16:35 Freq: Status: Active Protocol: Document 10/04/23 10:29 [facility] (Rec: 10/04/23 11:22 [facility] [id number]) Current Condition History of Current Condition Onset Date 6 weeks ago Current Complaints back pain, ronal leg pain History of Current Condition s/p lumbar spine surgery; 2 stage; cage insertion from anterior, and then L345 fusion second surgery. Had hematuria due to catheter going through urethral wall; will need surgery. Also reports left leg still swollen calf through the foot. Tried Trevor hose, not helpful. Pain level variable depending on Oxycodone and Methocarbomal; takes the edge off, trying to wean off. 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 Wearing back brace, using bone stimulatory 2 hours per day, walking level up to a mile but sometimes can't tolerate. Leg symptoms better, back pain continues at a high level; patient reports sites from robitic surgery. Hasn't yet taken any pain medication today. Tylenol doesn't do much. Still some tingling right leg, heel and foot. Prior Treatments and Tests Tried heat, doesn't do much. Hasn't tried ice. Precautions : no walking on hills, no twisting, lifting, bending. Saw surgeon after 2 weeks, then goes back end of October. Future Testing and Treatments Planned as above Treatment Goals Patient/Caregiver Goals decrease pain, improve strength, balance, and function. Wants to get back to walking and exercising more . Prior Functional Status Baseline Function- ADL's Independent Baseline Function- Mobility Independent Baseline Function- Gait indep Baseline Function- Work/School retired PT-OP-C Subjective Start: 10/03/23 16:35 Freq: Status: Active Protocol: Document 10/04/23 10:29 [facility] (Rec: 10/04/23 13:21 [facility] [id number]) Patient Questionnaires Oswestry Low Back Index Oswestry Score 38 OP-PT Pain Assessment Pain Assessment Grid Paper Pain Assessment Grid Completed Yes Location central low back, ronal buttock, ronal LE's Intensity 6 Description Burning,Pressure,Pulling, Radiating,Stabbing,Tender, Tightness Frequency Frequent Radiating Location posterior right calf, anterior thigh, medial lower leg Pain Aggravating Factors Position,Changing Position, Activity Pain Alleviating Factors Medication PT-OP-G Mobility & Gait Start: 10/03/23 16:35 Freq: Status: Active Protocol: Document 10/04/23 10:29 [facility] (Rec: 10/04/23 13:21 [facility] [id number]) OP Gait Assessment Gait Gait Assistance Required: Independent Assistive Devices Assistive Device None Gait Deviations General Gait Pattern Decreased Stride Length, Decreased Feet Clearance Comments Gait Comments wearing back brace Stair Climbing Evaluation Comments Stair Climbing Comments precaution of no walking on elevation at this time PT-OP-H Neuro Start: 10/03/23 16:35 Freq: Status: Active Protocol: Document 10/04/23 10:29 [facility] (Rec: 10/04/23 13:21 [facility] [id number]) Sensation Evaluation Gross Sensation Gross Sensation WNL PT-OP-J Posture/Palpation/Skin Start: 10/03/23 16:35 Freq: Status: Active Protocol: Document 10/04/23 10:29 [facility] (Rec: 10/04/23 13:21 [facility] [id number]) Posture Evaluation Position Standing L-Spine Posture Flattened Palpation Assessment Location incisioni scar Palpation Findings Soft Tissue Tightness Palpation Details abdomen, lumbar spine, buttocks Skin Assessment Edema Assessment left foot, ankle, lower calf Edema Appearance Puffy PT-OP-K Range of Motion Start: 10/03/23 16:35 Freq: Status: Active Protocol: Document 10/04/23 10:29 [facility] (Rec: 10/04/23 13:21 [facility] [id number]) Lumbar Spine Range of Motion Lumbar Spine Active Comments not tested due to recent surgery Hip Goniometric Range of Motion Hip ROM Limitations Comments mod decrease flexibility HS, quads, calves ronal Knee Goniometric Range of Motion Knee ronal Knee ROM WFL Yes Ankle and Foot Goniometric Range of Motion Ankle and Foot ronal Ankle/Foot ROM WFL No Dorsiflexion with Knee Flexed 5 Dorsiflexion with Knee Extended 0 PT-OP-L Special Tests Start: 10/03/23 16:35 Freq: Status: Active Protocol: Document 10/04/23 10:29 [facility] (Rec: 10/04/23 13:21 [facility] [id number]) Special Tests Lumbar Spine Special Tests Straight Leg Raise Test Results + HS tightness PT-OP-M Strength Start: 10/03/23 16:35 Freq: Status: Active Protocol: Document 10/04/23 10:29 [facility] (Rec: 10/04/23 13:21 [facility] [id number]) Trunk Strength Trunk Manual Muscle Testing Core Stabilization poor PT-OP-Q Treatments Start: 10/03/23 16:35 Freq: Status: Active Protocol: Document 10/04/23 10:29 [facility] (Rec: 10/04/23 11:22 [facility] [id number]) Therapeutic Exercises Supine Exercises TraA with hip IR/ER Reps/Minutes 10x TrA with arms overhead Reps/Minutes 10x isometric shoulder ext Reps/Minutes 5x Comments gentle pillow squeeze Reps/Minutes 10x glut set Side bilateral Reps/Minutes 10x TrA Side bilateral Reps/Minutes 5x Manual Therapy Treatment Soft Tissue Mobilization lumbar surgical scar Mobilization Type Strumming Body Position Sidelying Comments gentle lumbar paraspinals Mobilization Type Myofascial Release,Strumming Body Position Sidelying Comments gentle Self-Care/Home Management Treatment Education Patient Education Body Mechanics,Home Exercise Program,Joint Protection,Pain Management,Posture Other Education Reviewed spinal precautions, log roll, bed positioning. Instructed in gentle supine ex with emphasis on core activation and stab. Patient also educated on lymphatic system, location along spine as possible cause of left LE edema. Issued written HO, instructed to discontinue if causes pain. Activities Self-Care/Home Management Activities Instructed to change postions frequently, no prolonged sitting, continue gradual progression of walking as tolerated Lymphedema Treatment Manual Lymphatic Drainage Comments consider next session PT-OP-T Assessment and Plan Start: 10/03/23 16:35 Freq: Status: Active Protocol: Document 10/04/23 10:29 [facility] (Rec: 10/04/23 11:22 [facility] [id number]) Physical Therapy Assessment Assessment Summary Assessment Patient presents to PT approximately 6 weeks s/p lumbar surgery with cage placement from anterior, and fusion posterior Dr. Friedman. Saw for post-op at 2 weeks post op and sees again in October. Patient reporting pain generally 6/10 in back, 2/10 ronal LE's. Trying to wean down taking Oxycodone and Methocarbomol. Patient wearing back brace consistently when up and adhering to no bending, twisting, or lifting. Denies giving way of legs or foot drop. Hoping to get back to more active lifestyle. Feel he will benefit from PT for gentle core stabilization and strengthening, patient education regarding posture and body mechanics, and scar mobilization and pain management. POC was discussed with patient and he was in agreement. Physical Therapy Plan Frequency and Duration Frequency of Treatment 2x/Week Duration of treatment (weeks) 12 Plan of Care Start Date 10/04/23 Plan of Care End Date 01/04/24 Therapeutic Interventions Therapeutic Interventions Home Exercise Program,Manual Therapy,Neuromuscular Re- education,Patient/Caregiver Education,Self-Care/Home Management,Soft Tissue Mobilization,Taping, Therapeutic Activities, Therapeutic Exercises Modalities Electric Stimulation,Hot Packs ,Infrared Therapy Next Visit Focus/Plan Next Note Type Treatment Note Next Visit Plan review HEP, gentle progression of therapeutic exercise
--- NOTE | 2023-10-04 13:35 | PT.OPPOC ---
Physical, Occupational & Speech Therapy At [facility] Current Diagnoses Spondylolisthesis, lumbar region (10/04/23) Weakness (10/04/23) Visit Care Team Role Provider Type Eddie Garcia DO Primary Care Provider Physician Specialty: Family Practice Address: [address] [place] [address], [address], [address] Email: [email or web address] David Dewitt DO Family Provider Physician Specialty: Family Practice Address: [address] [place] [address], [id number] Email: Jose Carlos Khalil Attending Provider Non-Staff Referring Provider Specialty: Neurosurgery Address: [address] [place] [address], [id number] Email: Plan Of Care PT-OP-T Assessment and Plan Start: 10/03/23 16:35 Freq: Status: Active Protocol: Document 10/04/23 10:29 [facility] (Rec: 10/04/23 11:22 [facility] [id number]) Physical Therapy Assessment Assessment Summary Assessment Patient presents to PT approximately 6 weeks s/p lumbar surgery with cage placement from anterior, and fusion posterior Dr. Friedman. Saw for post-op at 2 weeks post op and sees again in October. Patient reporting pain generally 6/10 in back, 2/10 ronal LE's. Trying to wean down taking Oxycodone and Methocarbomol. Patient wearing back brace consistently when up and adhering to no bending, twisting, or lifting. Denies giving way of legs or foot drop. Hoping to get back to more active lifestyle. Feel he will benefit from PT for gentle core stabilization and strengthening, patient education regarding posture and body mechanics, and scar mobilization and pain management. POC was discussed with patient and he was in agreement. Physical Therapy Plan Frequency and Duration Frequency of Treatment 2x/Week Duration of treatment (weeks) 12 Plan of Care Start Date 10/04/23 Plan of Care End Date 01/04/24 Therapeutic Interventions Therapeutic Interventions Home Exercise Program,Manual Therapy,Neuromuscular Re- education,Patient/Caregiver Education,Self-Care/Home Management,Soft Tissue Mobilization,Taping, Therapeutic Activities, Therapeutic Exercises Modalities Electric Stimulation,Hot Packs ,Infrared Therapy Next Visit Focus/Plan Next Note Type Treatment Note Next Visit Plan review HEP, gentle progression of therapeutic exercise Plan of Care Dates Plan of Care Start Date 10/04/23 Plan of Care End Date 01/04/24 Electronically Signed by: Juli Cotto, PT 10/04/23 2437 If you are in agreement with this Plan of Care, please return a signed and dated copy. I have reviewed this Plan of Care and certify that the skilled therapy services above are required to meet the patient?s needs. Physician Signature Date Printed Name and Credentials Clinical Instructor Signature Printed Name and Credentials
--- NOTE | 2023-10-10 12:11 | PT.OTN ---
Current Diagnoses Spondylolisthesis, lumbar region (10/10/23) Weakness (10/10/23) Physical Therapy Treatment Note PT-OP-A Visit Information Start: 10/03/23 16:35 Freq: Status: Active Protocol: Document 10/10/23 11:15 [facility] (Rec: 10/10/23 11:35 [facility] [id number]) Out-Patient Physical Therapy Visit Information Visit Information Visit Type Treatment Note Visit Start Time 11:16 Visit Stop Time 12:00 Visit Number 2 Evaluation Information Evaluation Date 10/04/23 Precautions Precautions former R SI fusion PT-OP-B Current Condition Start: 10/03/23 16:35 Freq: Status: Active Protocol: Document 10/10/23 11:15 [facility] (Rec: 10/10/23 11:35 [facility] [id number]) Current Condition History of Current Condition Onset Date 6 weeks ago Current Complaints back pain, ronal leg pain History of Current Condition s/p lumbar spine surgery; 2 stage; cage insertion from anterior, and then L345 fusion second surgery. Had hematuria due to catheter going through urethral wall; will need surgery. Also reports left leg still swollen calf through the foot. Tried Trevor hose, not helpful. Pain level variable depending on Oxycodone and Methocarbomal; takes the edge off, trying to wean off. 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 Wearing back brace, using bone stimulatory 2 hours per day, walking level up to a mile but sometimes can't tolerate. Leg symptoms better, back pain continues at a high level; patient reports sites from robitic surgery. Hasn't yet taken any pain medication today. Tylenol doesn't do much. Still some tingling right leg, heel and foot. Prior history right SI fusion. Prior Treatments and Tests Tried heat, doesn't do much. Hasn't tried ice. Precautions : no walking on hills, no twisting, lifting, bending. Saw surgeon after 2 weeks, then goes back end of October. Future Testing and Treatments Planned as above Treatment Goals Patient/Caregiver Goals decrease pain, improve strength, balance, and function. Wants to get back to walking and exercising more . Prior Functional Status Baseline Function- ADL's Independent Baseline Function- Mobility Independent Baseline Function- Gait indep Baseline Function- Work/School retired PT-OP-C Subjective Start: 10/03/23 16:35 Freq: Status: Active Protocol: Document 10/10/23 11:15 [facility] (Rec: 10/10/23 11:35 [facility] [id number]) OP-PT Subjective Patient Comments Patient Comments Good today today, yesterday was bad day with pain legs and back, and into both legs to knees and feeling unsteady. Can't point to any activity or anything else that set it off . Bad enough it woke him up, got up at 3:30. Reports about a week ago he reports his pointed out that he was carrying a bucket of rocks probably 20#, I guess I probablyshouldn't be doing that yet. PT-OP-G Mobility & Gait Start: 10/03/23 16:35 Freq: Status: Active Protocol: Document 10/04/23 10:29 [facility] (Rec: 10/04/23 13:21 [facility] [id number]) OP Gait Assessment Gait Gait Assistance Required: Independent Assistive Devices Assistive Device None Gait Deviations General Gait Pattern Decreased Stride Length, Decreased Feet Clearance Comments Gait Comments wearing back brace Stair Climbing Evaluation Comments Stair Climbing Comments precaution of no walking on elevation at this time PT-OP-H Neuro Start: 10/03/23 16:35 Freq: Status: Active Protocol: Document 10/04/23 10:29 [facility] (Rec: 10/04/23 13:21 [facility] [id number]) Sensation Evaluation Gross Sensation Gross Sensation WNL PT-OP-J Posture/Palpation/Skin Start: 10/03/23 16:35 Freq: Status: Active Protocol: Document 10/04/23 10:29 [facility] (Rec: 10/04/23 13:21 [facility] [id number]) Posture Evaluation Position Standing L-Spine Posture Flattened Palpation Assessment Location incisioni scar Palpation Findings Soft Tissue Tightness Palpation Details abdomen, lumbar spine, buttocks Skin Assessment Edema Assessment left foot, ankle, lower calf Edema Appearance Puffy PT-OP-K Range of Motion Start: 10/03/23 16:35 Freq: Status: Active Protocol: Document 10/04/23 10:29 [facility] (Rec: 10/04/23 13:21 [facility] [id number]) Lumbar Spine Range of Motion Lumbar Spine Active Comments not tested due to recent surgery Hip Goniometric Range of Motion Hip ROM Limitations Comments mod decrease flexibility HS, quads, calves ronal Knee Goniometric Range of Motion Knee ronal Knee ROM WFL Yes Ankle and Foot Goniometric Range of Motion Ankle and Foot ronal Ankle/Foot ROM WFL No Dorsiflexion with Knee Flexed 5 Dorsiflexion with Knee Extended 0 PT-OP-L Special Tests Start: 10/03/23 16:35 Freq: Status: Active Protocol: Document 10/04/23 10:29 [facility] (Rec: 10/04/23 13:21 [facility] [id number]) Special Tests Lumbar Spine Special Tests Straight Leg Raise Test Results + HS tightness PT-OP-M Strength Start: 10/03/23 16:35 Freq: Status: Active Protocol: Document 10/04/23 10:29 [facility] (Rec: 10/04/23 13:21 [facility] [id number]) Trunk Strength Trunk Manual Muscle Testing Core Stabilization poor PT-OP-Q Treatments Start: 10/03/23 16:35 Freq: Status: Active Protocol: Document 10/10/23 11:15 [facility] (Rec: 10/10/23 12:03 [facility] [id number]) Therapeutic Exercises Supine Exercises shoulder ext swapna Side bilateral Reps/Minutes 10x Comments knees bent, cues for core bridge Side bilateral Reps/Minutes 10x Comments small lift, emphasis core and gluteal activation leg lowering Supine Exercise Name supine 90/90, feet off table TrA thigh push Reps/Minutes 10x TrA with arms overhead Side bilateral Resistance 2# Reps/Minutes 10x Comments cues for core stab pillow squeeze Side right Sidelying Exercises clam Side bilateral Reps/Minutes 10x hip abd Side bilateral Reps/Minutes 10x Self-Care/Home Management Treatment Education Patient Education Pain Management,Posture,Safety Other Education don't lift and carry weight PT-OP-T Assessment and Plan Start: 10/03/23 16:35 Freq: Status: Active Protocol: Document 10/10/23 11:15 [facility] (Rec: 10/10/23 11:35 [facility] [id number]) Physical Therapy Assessment Goals 2 Impairment activity tolerance Impairment Oswestry disability index score 46% Short Term Goal (STG) Decrease Oswestry to no greater than 30% as measure of improved function and activity tolerance STG Duration 11/20/23 Prison Goal (LTG) Decrease Oswestry to no greater than 15% as measure of imroved function and activity toleranc.e LTG Duration 01/04/24 1 Impairment lumbar spine pain as high as 8 /10 Impairment LBP and ronal LE pain 6/10, spikes to 8/10 at times Short Term Goal (STG) Decrease pain by at least 50% with all usual activities STG Duration 11/20/23 Prison Goal (LTG) Decrease pain by at least 75% with all usual activities LTG Duration 01/04/24 Assessment Summary Assessment Reviewed body mechanics and lifting principles verbally, will practice next session. Patient urged to use caution with any lifting activities at this time. Patient attempting to gradually wean off pain medication, reports hasn't taken any the past few days, could be reason for inc pain yesterday, took 1/2 Oxy and full Methocarbomal today, having better day so far. PT session focused on supine and sidelying strengthening and core stab with emphasis on working to fatigue but not pain, modifiy or discontinue if painful Patient demonstrated good understanding and was issued a written HO. Physical Therapy Plan Frequency and Duration Frequency of Treatment 2x/Week Duration of treatment (weeks) 12 Plan of Care Start Date 10/04/23 Plan of Care End Date 01/04/24 Therapeutic Interventions Therapeutic Interventions Home Exercise Program,Manual Therapy,Neuromuscular Re- education,Patient/Caregiver Education,Self-Care/Home Management,Soft Tissue Mobilization,Taping, Therapeutic Activities, Therapeutic Exercises Modalities Electric Stimulation,Hot Packs ,Infrared Therapy Next Visit Focus/Plan Next Note Type Treatment Note Next Visit Plan review HEP, consider start with upright bicycle with ed for home use (pt has upright ex bike but hasn't used yet), functional weight lifting ex, squats as tolerated.
--- NOTE | 2023-10-14 15:39 | PT.OTN ---
Current Diagnoses Spondylolisthesis, lumbar region (10/14/23) Weakness (10/14/23) Physical Therapy Treatment Note PT-OP-A Visit Information Start: 10/03/23 16:35 Freq: Status: Active Protocol: Document 10/14/23 14:35 AB (Rec: 10/14/23 15:35 AB [id number]) Out-Patient Physical Therapy Visit Information Visit Information Visit Type Treatment Note Visit Note Access Code [email or web address] Visit Start Time 14:36 Visit Stop Time 15:24 Visit Number 3 Number of CURTAIN INSPECTOR Visits 1 Evaluation Information Evaluation Date 10/04/23 PT-OP-B Current Condition Start: 10/03/23 16:35 Freq: Status: Active Protocol: Document 10/10/23 11:15 SAK (Rec: 10/10/23 11:35 SAK [id number]) Current Condition History of Current Condition Onset Date 6 weeks ago Current Complaints back pain, ronal leg pain History of Current Condition s/p lumbar spine surgery; 2 stage; cage insertion from anterior, and then L345 fusion second surgery. Had hematuria due to catheter going through urethral wall; will need surgery. Also reports left leg still swollen calf through the foot. Tried Trevor hose, not helpful. Pain level variable depending on Oxycodone and Methocarbomal; takes the edge off, trying to wean off. 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 Wearing back brace, using bone stimulatory 2 hours per day, walking level up to a mile but sometimes can't tolerate. Leg symptoms better, back pain continues at a high level; patient reports sites from robitic surgery. Hasn't yet taken any pain medication today. Tylenol doesn't do much. Still some tingling right leg, heel and foot. Prior history right SI fusion. Prior Treatments and Tests Tried heat, doesn't do much. Hasn't tried ice. Precautions : no walking on hills, no twisting, lifting, bending. Saw surgeon after 2 weeks, then goes back end of October. Future Testing and Treatments Planned as above Treatment Goals Patient/Caregiver Goals decrease pain, improve strength, balance, and function. Wants to get back to walking and exercising more . Prior Functional Status Baseline Function- ADL's Independent Baseline Function- Mobility Independent Baseline Function- Gait indep Baseline Function- Work/School retired PT-OP-C Subjective Start: 10/03/23 16:35 Freq: Status: Active Protocol: Document 10/14/23 14:35 AB (Rec: 10/14/23 15:35 AB [id number]) OP-PT Subjective Patient Comments Patient Comments Patient reports he has to wear the brace when out of the home, wears the spinal cord stimulator in the home, wears the brace in the house if doing anything active. Patient reports he started at a 10 lb weight limit for lifting 25 lb after 2weeks. Patient rates pain 5/10 accross the back. lacking 51 deg left 46 deg right AROM hamstrings measured 90/90 position. PT-OP-G Mobility & Gait Start: 10/03/23 16:35 Freq: Status: Active Protocol: Document 10/04/23 10:29 [facility] (Rec: 10/04/23 13:21 [facility] [id number]) OP Gait Assessment Gait Gait Assistance Required: Independent Assistive Devices Assistive Device None Gait Deviations General Gait Pattern Decreased Stride Length, Decreased Feet Clearance Comments Gait Comments wearing back brace Stair Climbing Evaluation Comments Stair Climbing Comments precaution of no walking on elevation at this time PT-OP-H Neuro Start: 10/03/23 16:35 Freq: Status: Active Protocol: Document 10/04/23 10:29 SAK (Rec: 10/04/23 13:21 [facility] [id number]) Sensation Evaluation Gross Sensation Gross Sensation WNL PT-OP-J Posture/Palpation/Skin Start: 10/03/23 16:35 Freq: Status: Active Protocol: Document 10/04/23 10:29 SAK (Rec: 10/04/23 13:21 [facility] [id number]) Posture Evaluation Position Standing L-Spine Posture Flattened Palpation Assessment Location incisioni scar Palpation Findings Soft Tissue Tightness Palpation Details abdomen, lumbar spine, buttocks Skin Assessment Edema Assessment left foot, ankle, lower calf Edema Appearance Puffy PT-OP-K Range of Motion Start: 10/03/23 16:35 Freq: Status: Active Protocol: Document 10/04/23 10:29 SAK (Rec: 10/04/23 13:21 [facility] [id number]) Lumbar Spine Range of Motion Lumbar Spine Active Comments not tested due to recent surgery Hip Goniometric Range of Motion Hip ROM Limitations Comments mod decrease flexibility HS, quads, calves ronal Knee Goniometric Range of Motion Knee ronal Knee ROM WFL Yes Ankle and Foot Goniometric Range of Motion Ankle and Foot ronal Ankle/Foot ROM WFL No Dorsiflexion with Knee Flexed 5 Dorsiflexion with Knee Extended 0 PT-OP-L Special Tests Start: 10/03/23 16:35 Freq: Status: Active Protocol: Document 10/04/23 10:29 SAK (Rec: 10/04/23 13:21 SAK [id number]) Special Tests Lumbar Spine Special Tests Straight Leg Raise Test Results + HS tightness PT-OP-M Strength Start: 10/03/23 16:35 Freq: Status: Active Protocol: Document 10/04/23 10:29 SAK (Rec: 10/04/23 13:21 SAK [id number]) Trunk Strength Trunk Manual Muscle Testing Core Stabilization poor PT-OP-Q Treatments Start: 10/03/23 16:35 Freq: Status: Active Protocol: Document 10/14/23 14:35 AB (Rec: 10/14/23 15:35 AB [id number]) Cardio Equipment Bicycle (Upright) Duration (Minutes) 5 Resistance 2,3 Seat Position 6 Therapeutic Exercises Supine Exercises hamstring stretch Supine Exercise Name from hooklying Side bilateral Reps/Minutes 60 seconds X 2 each Comments verbal cues Sidelying Exercises reverse clamshell Side bilateral Reps/Minutes X10 clam Side bilateral Reps/Minutes 10x Standing Exercises mini squat Side bilateral Reps/Minutes X10 Comments verbal, visual and patient ed use of self tactile cues for hip hinge Therapeutic Activity Therapeutic Activity sit to stand Name with and without UE use Comments Patient ed mechanics of sit to stand and use of self tactile cues for hip hinge. log roll Reps/Minutes X2 Comments VC to scoot back in seated so back of knees touch mat prior to transition to sidelying, for alignment of shoulder and hip for log roll, and for timing ie push up into sitting from sideying immediately after LE's are moved off the mat Manual Therapy Treatment Soft Tissue Mobilization left hamstring Mobilization Type Cross-Friction,Rolling Intensity/Depth Moderate Body Position Sidelying Comments discontinued due to patient reports STM is not comfortable PT-OP-T Assessment and Plan Start: 10/03/23 16:35 Freq: Status: Active Protocol: Document 10/14/23 14:35 AB (Rec: 10/14/23 15:38 AB [id number]) Physical Therapy Assessment Goals 2 Impairment activity tolerance Impairment Oswestry disability index score 46% Short Term Goal (STG) Decrease Oswestry to no greater than 30% as measure of improved function and activity tolerance STG Duration 11/20/23 Premises Technician Goal (LTG) Decrease Oswestry to no greater than 15% as measure of imroved function and activity toleranc.e LTG Duration 01/04/24 1 Impairment lumbar spine pain as high as 8 /10 Impairment LBP and ronal LE pain 6/10, spikes to 8/10 at times Short Term Goal (STG) Decrease pain by at least 50% with all usual activities STG Duration 11/20/23 Care Home Goal (LTG) Decrease pain by at least 75% with all usual activities LTG Duration 01/04/24 Assessment Summary Assessment Increased hamstring stiffness impacting ability to squat to increased depth without increased posterior pelvic tilt. Patient reports back pain increased to 6-7/10 end of session, and attributes this to lying on the brace during the session. Patient able to hold upright posture throughout 5 minutes on bike. Patient reports pulling in calf muscles at lower depth of mini squat. Physical Therapy Plan Frequency and Duration Frequency of Treatment 2x/Week Duration of treatment (weeks) 12 Plan of Care Start Date 10/04/23 Plan of Care End Date 01/04/24 Next Visit Focus/Plan Next Note Type Treatment Note Next Visit Plan review HEP, consider start with upright bicycle with ed for home use (pt has upright ex bike but hasn't used yet), functional weight lifting ex, Review mini squats, and HS stretch, assess calf length.
--- NOTE | 2023-10-18 15:59 | PT.OTN ---
Current Diagnoses Spondylolisthesis, lumbar region (10/18/23) Weakness (10/18/23) Physical Therapy Treatment Note PT-OP-A Visit Information Start: 10/03/23 16:35 Freq: Status: Active Protocol: Document 10/18/23 09:00 [facility] (Rec: 10/18/23 09:47 [facility] [id number]) Out-Patient Physical Therapy Visit Information Visit Information Visit Type Treatment Note Visit Start Time 09:01 Visit Stop Time 09:50 Visit Number 4 Number of RN CASE MGR Visits 0 Evaluation Information Evaluation Date 10/04/23 Precautions Precautions former R SI fusion PT-OP-B Current Condition Start: 10/03/23 16:35 Freq: Status: Active Protocol: Document 10/18/23 09:00 [facility] (Rec: 10/18/23 09:47 [facility] [id number]) Current Condition History of Current Condition Onset Date 6 weeks ago Current Complaints back pain, ronal leg pain History of Current Condition s/p lumbar spine surgery; 2 stage; cage insertion from anterior, and then L345 fusion second surgery. Had hematuria due to catheter going through urethral wall; will need surgery. Also reports left leg still swollen calf through the foot. Tried Trevor hose, not helpful. Pain level variable depending on Oxycodone and Methocarbomal; takes the edge off, trying to wean off. 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 Wearing back brace, using bone stimulatory 2 hours per day, walking level up to a mile but sometimes can't tolerate. Leg symptoms better, back pain continues at a high level; patient reports sites from robitic surgery. Hasn't yet taken any pain medication today. Tylenol doesn't do much. Still some tingling right leg, heel and foot. Prior history right SI fusion. Prior Treatments and Tests Tried heat, doesn't do much. Hasn't tried ice. Precautions : no walking on hills, no twisting, lifting, bending. Saw surgeon after 2 weeks, then goes back end of October. Future Testing and Treatments Planned as above PT-OP-C Subjective Start: 10/03/23 16:35 Freq: Status: Active Protocol: Document 10/18/23 09:00 [facility] (Rec: 10/18/23 09:47 [facility] [id number]) OP-PT Subjective Patient Comments Patient Comments Day after last PT was sore, day after that was hard to walk, some better today ynes still really sore. Has been using heat on it, not doing exercises. PT-OP-G Mobility & Gait Start: 10/03/23 16:35 Freq: Status: Active Protocol: Document 10/04/23 10:29 [facility] (Rec: 10/04/23 13:21 [facility] [id number]) OP Gait Assessment Gait Gait Assistance Required: Independent Assistive Devices Assistive Device None Gait Deviations General Gait Pattern Decreased Stride Length, Decreased Feet Clearance Comments Gait Comments wearing back brace Stair Climbing Evaluation Comments Stair Climbing Comments precaution of no walking on elevation at this time PT-OP-H Neuro Start: 10/03/23 16:35 Freq: Status: Active Protocol: Document 10/04/23 10:29 [facility] (Rec: 10/04/23 13:21 [facility] [id number]) Sensation Evaluation Gross Sensation Gross Sensation WNL PT-OP-J Posture/Palpation/Skin Start: 10/03/23 16:35 Freq: Status: Active Protocol: Document 10/04/23 10:29 [facility] (Rec: 10/04/23 13:21 [facility] [id number]) Posture Evaluation Position Standing L-Spine Posture Flattened Palpation Assessment Location incisioni scar Palpation Findings Soft Tissue Tightness Palpation Details abdomen, lumbar spine, buttocks Skin Assessment Edema Assessment left foot, ankle, lower calf Edema Appearance Puffy PT-OP-K Range of Motion Start: 10/03/23 16:35 Freq: Status: Active Protocol: Document 10/04/23 10:29 [facility] (Rec: 10/04/23 13:21 [facility] [id number]) Lumbar Spine Range of Motion Lumbar Spine Active Comments not tested due to recent surgery Hip Goniometric Range of Motion Hip ROM Limitations Comments mod decrease flexibility HS, quads, calves ronal Knee Goniometric Range of Motion Knee ronal Knee ROM WFL Yes Ankle and Foot Goniometric Range of Motion Ankle and Foot ronal Ankle/Foot ROM WFL No Dorsiflexion with Knee Flexed 5 Dorsiflexion with Knee Extended 0 PT-OP-L Special Tests Start: 10/03/23 16:35 Freq: Status: Active Protocol: Document 10/04/23 10:29 [facility] (Rec: 10/04/23 13:21 [facility] [id number]) Special Tests Lumbar Spine Special Tests Straight Leg Raise Test Results + HS tightness PT-OP-M Strength Start: 10/03/23 16:35 Freq: Status: Active Protocol: Document 10/04/23 10:29 [facility] (Rec: 10/04/23 13:21 [facility] [id number]) Trunk Strength Trunk Manual Muscle Testing Core Stabilization poor PT-OP-Q Treatments Start: 10/03/23 16:35 Freq: Status: Active Protocol: Document 10/18/23 09:00 [facility] (Rec: 10/18/23 09:47 [facility] [id number]) Manual Therapy Treatment Soft Tissue Mobilization lumbar surgical scar Mobilization Type Strumming Body Position Sidelying Comments gentle lumbar paraspinals Mobilization Type Myofascial Release,Strumming Body Position Sidelying Comments gentle Self-Care/Home Management Treatment Education Patient Education Home Exercise Program,Pain Management,Posture,Safety Other Education walk and isometric exercises for now, no ex bike or clam/ reverse clam. Correct use of cane to offload right side and decrease pain with gait. reveiwd correct use of pillows for support and neutral alignment PT-OP-R Modalities Start: 10/03/23 16:35 Freq: Status: Active Protocol: Document 10/18/23 09:00 [facility] (Rec: 10/18/23 09:47 [facility] [id number]) Electric Stimulation Electric Stimulation right l/s and SI Intensity 35 Target/Sweep Sweep Patient Position Sidelying Combined With Heat/Cold Cold Pack Infrared Treatment Treatment R l/s and SI Body Position Sidelying Continuous/Pulsed continu Program or Protocal chronic pain and stiffness Comments 6 locations 58 sec ea PT-OP-T Assessment and Plan Start: 10/03/23 16:35 Freq: Status: Active Protocol: Document 10/18/23 09:00 [facility] (Rec: 10/18/23 09:47 [facility] [id number]) Physical Therapy Assessment Goals 2 Impairment activity tolerance Impairment Oswestry disability index score 46% Short Term Goal (STG) Decrease Oswestry to no greater than 30% as measure of improved function and activity tolerance STG Duration 11/20/23 Group Home Goal (LTG) Decrease Oswestry to no greater than 15% as measure of imroved function and activity toleranc.e LTG Duration 01/04/24 1 Impairment lumbar spine pain as high as 8 /10 Impairment LBP and ronal LE pain 6/10, spikes to 8/10 at times Short Term Goal (STG) Decrease pain by at least 50% with all usual activities STG Duration 11/20/23 Group Home Goal (LTG) Decrease pain by at least 75% with all usual activities LTG Duration 01/04/24 Assessment Summary Assessment Patient pain exacerbated after last PT session, discontinued use of bike and encouraged patient to not do clam or reverse clam until symptoms calm down. After treatment today with gentle manual therapy, cold laser, and IFES with ice patient reported significant pain reduction and improved gait ability, to try TENS at home and was instructed can use ice or heat . Patient also to contact physician regarding anti- inflammatory medication as he has never been on since surgery. Physical Therapy Plan Frequency and Duration Frequency of Treatment 2x/Week Duration of treatment (weeks) 12 Plan of Care Start Date 10/04/23 Plan of Care End Date 01/04/24 Therapeutic Interventions Therapeutic Interventions Home Exercise Program,Manual Therapy,Neuromuscular Re- education,Patient/Caregiver Education,Self-Care/Home Management,Soft Tissue Mobilization,Taping, Therapeutic Activities, Therapeutic Exercises Modalities Electric Stimulation,Hot Packs ,Infrared Therapy Next Visit Focus/Plan Next Note Type Treatment Note Next Visit Plan Continue manual therapy, cold laser, IFES as needed. Treadmill warm up with cues for core activation and postural correction as able with gait. Review mini squats , gentle HS stretch, assess calf length.
--- NOTE | 2023-10-20 16:43 | PT.OTN ---
Current Diagnoses Spondylolisthesis, lumbar region (10/20/23) Weakness (10/20/23) Physical Therapy Treatment Note PT-OP-A Visit Information Start: 10/03/23 16:35 Freq: Status: Active Protocol: Document 10/20/23 12:57 AB (Rec: 10/20/23 16:43 AB [id number]) Out-Patient Physical Therapy Visit Information Visit Information Visit Type Treatment Note Visit Note Access Code [email or web address] Visit Start Time 13:01 Visit Stop Time 13:47 Visit Number 5 Number of DIRECTOR PRISON Visits 1 Evaluation Information Evaluation Date 10/04/23 Precautions Precautions former R SI fusion PT-OP-B Current Condition Start: 10/03/23 16:35 Freq: Status: Active Protocol: Document 10/18/23 09:00 [facility] (Rec: 10/18/23 09:47 [facility] [id number]) Current Condition History of Current Condition Onset Date 6 weeks ago Current Complaints back pain, ronal leg pain History of Current Condition s/p lumbar spine surgery; 2 stage; cage insertion from anterior, and then L345 fusion second surgery. Had hematuria due to catheter going through urethral wall; will need surgery. Also reports left leg still swollen calf through the foot. Tried Trevor hose, not helpful. Pain level variable depending on Oxycodone and Methocarbomal; takes the edge off, trying to wean off. 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 Wearing back brace, using bone stimulatory 2 hours per day, walking level up to a mile but sometimes can't tolerate. Leg symptoms better, back pain continues at a high level; patient reports sites from robitic surgery. Hasn't yet taken any pain medication today. Tylenol doesn't do much. Still some tingling right leg, heel and foot. Prior history right SI fusion. Prior Treatments and Tests Tried heat, doesn't do much. Hasn't tried ice. Precautions : no walking on hills, no twisting, lifting, bending. Saw surgeon after 2 weeks, then goes back end of October. Future Testing and Treatments Planned as above PT-OP-C Subjective Start: 10/03/23 16:35 Freq: Status: Active Protocol: Document 10/20/23 12:57 AB (Rec: 10/20/23 16:43 AB [id number]) OP-PT Subjective Patient Comments Patient Comments Patient reports pain has gone from right buttocks to lateral pelvis (quadtratus lumborum upon palpation )post previous session with this therapist. Patient reports pain wakes him up 3-4 am in the morning. Patient reports he can almost stand up straight mid day, but with activity pain increases if he stands up straight. Patient reports the tens machine used last session did not help the pain. PT-OP-G Mobility & Gait Start: 10/03/23 16:35 Freq: Status: Active Protocol: Document 10/04/23 10:29 [facility] (Rec: 10/04/23 13:21 [facility] [id number]) OP Gait Assessment Gait Gait Assistance Required: Independent Assistive Devices Assistive Device None Gait Deviations General Gait Pattern Decreased Stride Length, Decreased Feet Clearance Comments Gait Comments wearing back brace Stair Climbing Evaluation Comments Stair Climbing Comments precaution of no walking on elevation at this time PT-OP-H Neuro Start: 10/03/23 16:35 Freq: Status: Active Protocol: Document 10/04/23 10:29 [facility] (Rec: 10/04/23 13:21 [facility] [id number]) Sensation Evaluation Gross Sensation Gross Sensation WNL PT-OP-J Posture/Palpation/Skin Start: 10/03/23 16:35 Freq: Status: Active Protocol: Document 10/04/23 10:29 [facility] (Rec: 10/04/23 13:21 [facility] [id number]) Posture Evaluation Position Standing L-Spine Posture Flattened Palpation Assessment Location incisioni scar Palpation Findings Soft Tissue Tightness Palpation Details abdomen, lumbar spine, buttocks Skin Assessment Edema Assessment left foot, ankle, lower calf Edema Appearance Puffy PT-OP-K Range of Motion Start: 10/03/23 16:35 Freq: Status: Active Protocol: Document 10/04/23 10:29 [facility] (Rec: 10/04/23 13:21 [facility] [id number]) Lumbar Spine Range of Motion Lumbar Spine Active Comments not tested due to recent surgery Hip Goniometric Range of Motion Hip ROM Limitations Comments mod decrease flexibility HS, quads, calves ronal Knee Goniometric Range of Motion Knee ronal Knee ROM WFL Yes Ankle and Foot Goniometric Range of Motion Ankle and Foot ronal Ankle/Foot ROM WFL No Dorsiflexion with Knee Flexed 5 Dorsiflexion with Knee Extended 0 PT-OP-L Special Tests Start: 10/03/23 16:35 Freq: Status: Active Protocol: Document 10/04/23 10:29 [facility] (Rec: 10/04/23 13:21 [facility] [id number]) Special Tests Lumbar Spine Special Tests Straight Leg Raise Test Results + HS tightness PT-OP-M Strength Start: 10/03/23 16:35 Freq: Status: Active Protocol: Document 10/04/23 10:29 [facility] (Rec: 10/04/23 13:21 [facility] [id number]) Trunk Strength Trunk Manual Muscle Testing Core Stabilization poor PT-OP-Q Treatments Start: 10/03/23 16:35 Freq: Status: Active Protocol: Document 10/20/23 12:57 AB (Rec: 10/20/23 16:43 AB [id number]) Therapeutic Exercises Supine Exercises hamstring stretch Supine Exercise Name from hooklying Side bilateral Reps/Minutes 60 seconds X 2 each Comments verbal cues TrA thigh push Side bilateral Reps/Minutes 10x each LE Sidelying Exercises reverse clamshell Side bilateral Reps/Minutes X10 each LE clam Side bilateral Reps/Minutes 10x each LE Standing Exercises calf stretches Standing Exercise Name standing soleus and gastroc Side bilateral Reps/Minutes 60 each seconds X 2 each LE Manual Therapy Treatment Soft Tissue Mobilization right quadratus Body Location quadratus lumborum right Mobilization Type Cross-Friction,Rolling Intensity/Depth Moderate Body Position Sidelying left hamstring Body Location bilateral Mobilization Type Cross-Friction,Rolling Intensity/Depth Moderate Body Position Sidelying PT-OP-R Modalities Start: 10/03/23 16:35 Freq: Status: Active Protocol: Document 10/18/23 09:00 [facility] (Rec: 10/18/23 09:47 [facility] [id number]) Electric Stimulation Electric Stimulation right l/s and SI Intensity 35 Target/Sweep Sweep Patient Position Sidelying Combined With Heat/Cold Cold Pack Infrared Treatment Treatment R l/s and SI Body Position Sidelying Continuous/Pulsed continu Program or Protocal chronic pain and stiffness Comments 6 locations 58 sec ea PT-OP-T Assessment and Plan Start: 10/03/23 16:35 Freq: Status: Active Protocol: Document 10/20/23 12:57 AB (Rec: 10/20/23 16:43 AB [id number]) Physical Therapy Assessment Goals 2 Impairment activity tolerance Impairment Oswestry disability index score 46% Short Term Goal (STG) Decrease Oswestry to no greater than 30% as measure of improved function and activity tolerance STG Duration 11/20/23 Residential Goal (LTG) Decrease Oswestry to no greater than 15% as measure of imroved function and activity toleranc.e LTG Duration 01/04/24 Assessment Summary Assessment Patient reports he can stand up straighter. Patient reports feeling tightness in area that was painful previously when standing upright. Physical Therapy Plan Next Visit Focus/Plan Next Note Type Treatment Note Next Visit Plan Continue manual therapy, cold laser, IFES as needed. Treadmill warm up with cues for core activation and postural correction as able with gait. Review mini squats ,
--- NOTE | 2023-10-25 14:38 | PT.OTN ---
Current Diagnoses Spondylolisthesis, lumbar region (10/27/23) Weakness (10/27/23) Physical Therapy Treatment Note PT-OP-A Visit Information Start: 10/03/23 16:35 Freq: Status: Active Protocol: Document 10/25/23 14:38 SW (Rec: 10/25/23 15:21 SW [id number]) Out-Patient Physical Therapy Visit Information Visit Information Visit Type Treatment Note Visit Note Access Code [email or web address] Visit Start Time 14:35 Visit Stop Time 15:15 Visit Number 6 Number of POWERTRAIN ENGINEER Visits 2 Precautions Precautions former R SI fusion PT-OP-B Current Condition Start: 10/03/23 16:35 Freq: Status: Active Protocol: Document 10/18/23 09:00 SAK (Rec: 10/18/23 09:47 SAK [id number]) Current Condition History of Current Condition Onset Date 6 weeks ago Current Complaints back pain, ronal leg pain History of Current Condition s/p lumbar spine surgery; 2 stage; cage insertion from anterior, and then L345 fusion second surgery. Had hematuria due to catheter going through urethral wall; will need surgery. Also reports left leg still swollen calf through the foot. Tried Trevor hose, not helpful. Pain level variable depending on Oxycodone and Methocarbomal; takes the edge off, trying to wean off. 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 Wearing back brace, using bone stimulatory 2 hours per day, walking level up to a mile but sometimes can't tolerate. Leg symptoms better, back pain continues at a high level; patient reports sites from robitic surgery. Hasn't yet taken any pain medication today. Tylenol doesn't do much. Still some tingling right leg, heel and foot. Prior history right SI fusion. Prior Treatments and Tests Tried heat, doesn't do much. Hasn't tried ice. Precautions : no walking on hills, no twisting, lifting, bending. Saw surgeon after 2 weeks, then goes back end of October. Future Testing and Treatments Planned as above PT-OP-C Subjective Start: 10/03/23 16:35 Freq: Status: Active Protocol: Document 11/01/23 14:38 SW (Rec: 10/25/23 15:21 SW [id number]) OP-PT Subjective Patient Comments Patient Comments Pt reports pain in R hip with peripheralization of symptoms for around 2 weeks now, modalities are not helping, attributes to HS stretch. Pt reports pain also present around LB, which pt feels is to be expected. PT-OP-G Mobility & Gait Start: 10/03/23 16:35 Freq: Status: Active Protocol: Document 10/04/23 10:29 SAK (Rec: 10/04/23 13:21 [facility] [id number]) OP Gait Assessment Gait Gait Assistance Required: Independent Assistive Devices Assistive Device None Gait Deviations General Gait Pattern Decreased Stride Length, Decreased Feet Clearance Comments Gait Comments wearing back brace Stair Climbing Evaluation Comments Stair Climbing Comments precaution of no walking on elevation at this time PT-OP-H Neuro Start: 10/03/23 16:35 Freq: Status: Active Protocol: Document 10/04/23 10:29 [facility] (Rec: 10/04/23 13:21 [facility] [id number]) Sensation Evaluation Gross Sensation Gross Sensation WNL PT-OP-J Posture/Palpation/Skin Start: 10/03/23 16:35 Freq: Status: Active Protocol: Document 10/04/23 10:29 [facility] (Rec: 10/04/23 13:21 [facility] [id number]) Posture Evaluation Position Standing L-Spine Posture Flattened Palpation Assessment Location incisioni scar Palpation Findings Soft Tissue Tightness Palpation Details abdomen, lumbar spine, buttocks Skin Assessment Edema Assessment left foot, ankle, lower calf Edema Appearance Puffy PT-OP-K Range of Motion Start: 10/03/23 16:35 Freq: Status: Active Protocol: Document 10/04/23 10:29 [facility] (Rec: 10/04/23 13:21 [facility] [id number]) Lumbar Spine Range of Motion Lumbar Spine Active Comments not tested due to recent surgery Hip Goniometric Range of Motion Hip ROM Limitations Comments mod decrease flexibility HS, quads, calves ronal Knee Goniometric Range of Motion Knee ronal Knee ROM WFL Yes Ankle and Foot Goniometric Range of Motion Ankle and Foot ronal Ankle/Foot ROM WFL No Dorsiflexion with Knee Flexed 5 Dorsiflexion with Knee Extended 0 PT-OP-L Special Tests Start: 10/03/23 16:35 Freq: Status: Active Protocol: Document 10/04/23 10:29 [facility] (Rec: 10/04/23 13:21 [facility] [id number]) Special Tests Lumbar Spine Special Tests Straight Leg Raise Test Results + HS tightness PT-OP-M Strength Start: 10/03/23 16:35 Freq: Status: Active Protocol: Document 10/04/23 10:29 [facility] (Rec: 10/04/23 13:21 SAK [id number]) Trunk Strength Trunk Manual Muscle Testing Core Stabilization poor PT-OP-Q Treatments Start: 10/03/23 16:35 Freq: Status: Active Protocol: Document 11/01/23 14:38 (Rec: 10/25/23 15:21 SW [id number]) Therapeutic Exercises Supine Exercises shoulder ext swapna Side bilateral Reps/Minutes 10x Comments knees bent, cues for core TrA thigh push Side bilateral Reps/Minutes 10x each LE isometric shoulder ext Reps/Minutes 5x Comments gentle Standing Exercises mini squat Side bilateral Reps/Minutes X10 Comments verbal, visual and patient ed use of self tactile cues for hip hinge Manual Therapy Treatment Soft Tissue Mobilization right quadratus Body Location quadratus lumborum right Mobilization Type Cross-Friction,Rolling Intensity/Depth Moderate Body Position Sidelying left hamstring Body Location bilateral Mobilization Type Cross-Friction,Rolling Intensity/Depth Moderate Body Position Sidelying lumbar surgical scar Mobilization Type Strumming Body Position Sidelying Comments gentle lumbar paraspinals Mobilization Type Myofascial Release,Strumming Intensity/Depth Superficial Body Position Sidelying Comments gentle Self-Care/Home Management Treatment Education Patient Education Home Exercise Program,Pain Management,Posture,Safety Other Education Pt education on pain management modalities. Pt education on spinal precautions and no bending of the spine. Educated pt on peripheralization vs centralization of symptoms. Reviewed pt precautions for adherance. PT-OP-R Modalities Start: 10/03/23 16:35 Freq: Status: Active Protocol: Document 10/18/23 09:00 [facility] (Rec: 10/18/23 09:47 [facility] [id number]) Electric Stimulation Electric Stimulation right l/s and SI Intensity 35 Target/Sweep Sweep Patient Position Sidelying Combined With Heat/Cold Cold Pack Infrared Treatment Treatment R l/s and SI Body Position Sidelying Continuous/Pulsed continu Program or Protocal chronic pain and stiffness Comments 6 locations 58 sec ea PT-OP-T Assessment and Plan Start: 10/03/23 16:35 Freq: Status: Active Protocol: Document 11/01/23 14:38 (Rec: 10/25/23 15:21 [id number]) Physical Therapy Assessment Goals 2 Impairment activity tolerance Impairment Oswestry disability index score 46% Short Term Goal (STG) Decrease Oswestry to no greater than 30% as measure of improved function and activity tolerance STG Duration 11/20/23 Tank Builder Helper Goal (LTG) Decrease Oswestry to no greater than 15% as measure of imroved function and activity toleranc.e LTG Duration 01/04/24 1 Impairment lumbar spine pain as high as 8 /10 Impairment LBP and ronal LE pain /, spikes to 8/10 at times Short Term Goal (STG) Decrease pain by at least 50% with all usual activities STG Duration 11/20/23 Tank Builder Helper Goal (LTG) Decrease pain by at least 75% with all usual activities LTG Duration 01/04/24 Assessment Summary Assessment Pt came into session today in more pain in the hip today, focused on manual therapy today to address pt discomfort and decrease tension, pt reports radiating symptom with STM to R hip, with gentle presure, relieved upon release , worked surrounding tissues to help loosen up R hip. Pt attributes hip pain to HS stretching. Instructed pt to not keep pushing into increased pain with HEP and to do other HEP exercises without HS stretch to assess tolerance to other exercises. Plan to assess pt HEP tolerance next session as able . Reviewed mini squats, instructed pt in minimal range for correct mechanics, pt reports feeling it in quads, denies pain, describes as discomfort, muscles working that haven't been worked. Physical Therapy Plan Frequency and Duration Frequency of Treatment 2x/Week Duration of treatment (weeks) 12 Plan of Care Start Date 10/04/23 Plan of Care End Date 01/04/24 Therapeutic Interventions Therapeutic Interventions Home Exercise Program,Manual Therapy,Neuromuscular Re- education,Patient/Caregiver Education,Self-Care/Home Management,Soft Tissue Mobilization,Taping, Therapeutic Activities, Therapeutic Exercises Modalities Electric Stimulation,Hot Packs ,Infrared Therapy Next Visit Focus/Plan Next Note Type Treatment Note Next Visit Plan Continue manual therapy, cold laser, IFES as needed. Treadmill warm up with cues for core activation and postural correction as able with gait. Review mini squats ,
--- NOTE | 2023-10-27 12:13 | PT.OTN ---
Current Diagnoses Spondylolisthesis, lumbar region (10/27/23) Weakness (10/27/23) Physical Therapy Treatment Note PT-OP-A Visit Information Start: 10/03/23 16:35 Freq: Status: Active Protocol: Document 10/27/23 11:18 AB (Rec: 10/27/23 12:12 AB [id number]) Out-Patient Physical Therapy Visit Information Visit Information Visit Type Treatment Note Visit Note Access Code [email or web address] Visit Start Time 11:19 Visit Stop Time 12:02 Visit Number 7 Number of DIE MAKER Visits 1 Evaluation Information Evaluation Date 10/04/23 Precautions Precautions former R SI fusion PT-OP-B Current Condition Start: 10/03/23 16:35 Freq: Status: Active Protocol: Document 10/18/23 09:00 SAK (Rec: 10/18/23 09:47 SAK [id number]) Current Condition History of Current Condition Onset Date 6 weeks ago Current Complaints back pain, ronal leg pain History of Current Condition s/p lumbar spine surgery; 2 stage; cage insertion from anterior, and then L345 fusion second surgery. Had hematuria due to catheter going through urethral wall; will need surgery. Also reports left leg still swollen calf through the foot. Tried Trevor hose, not helpful. Pain level variable depending on Oxycodone and Methocarbomal; takes the edge off, trying to wean off. 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 Wearing back brace, using bone stimulatory 2 hours per day, walking level up to a mile but sometimes can't tolerate. Leg symptoms better, back pain continues at a high level; patient reports sites from robitic surgery. Hasn't yet taken any pain medication today. Tylenol doesn't do much. Still some tingling right leg, heel and foot. Prior history right SI fusion. Prior Treatments and Tests Tried heat, doesn't do much. Hasn't tried ice. Precautions : no walking on hills, no twisting, lifting, bending. Saw surgeon after 2 weeks, then goes back end of October. Future Testing and Treatments Planned as above PT-OP-C Subjective Start: 10/03/23 16:35 Freq: Status: Active Protocol: Document 10/27/23 11:18 AB (Rec: 10/27/23 12:12 AB [id number]) OP-PT Subjective Patient Comments Patient Comments Patient reports he is better today, yesterday was worse, attributes the pain to walking and doing a little yard work the day before. Patient rates pain 5/10 center low back. PT-OP-G Mobility & Gait Start: 10/03/23 16:35 Freq: Status: Active Protocol: Document 10/04/23 10:29 [facility] (Rec: 10/04/23 13:21 [facility] [id number]) OP Gait Assessment Gait Gait Assistance Required: Independent Assistive Devices Assistive Device None Gait Deviations General Gait Pattern Decreased Stride Length, Decreased Feet Clearance Comments Gait Comments wearing back brace Stair Climbing Evaluation Comments Stair Climbing Comments precaution of no walking on elevation at this time PT-OP-H Neuro Start: 10/03/23 16:35 Freq: Status: Active Protocol: Document 10/04/23 10:29 [facility] (Rec: 10/04/23 13:21 [facility] [id number]) Sensation Evaluation Gross Sensation Gross Sensation WNL PT-OP-J Posture/Palpation/Skin Start: 10/03/23 16:35 Freq: Status: Active Protocol: Document 10/04/23 10:29 [facility] (Rec: 10/04/23 13:21 [facility] [id number]) Posture Evaluation Position Standing L-Spine Posture Flattened Palpation Assessment Location incisioni scar Palpation Findings Soft Tissue Tightness Palpation Details abdomen, lumbar spine, buttocks Skin Assessment Edema Assessment left foot, ankle, lower calf Edema Appearance Puffy PT-OP-K Range of Motion Start: 10/03/23 16:35 Freq: Status: Active Protocol: Document 10/04/23 10:29 [facility] (Rec: 10/04/23 13:21 [facility] [id number]) Lumbar Spine Range of Motion Lumbar Spine Active Comments not tested due to recent surgery Hip Goniometric Range of Motion Hip ROM Limitations Comments mod decrease flexibility HS, quads, calves ronal Knee Goniometric Range of Motion Knee ronal Knee ROM WFL Yes Ankle and Foot Goniometric Range of Motion Ankle and Foot ronal Ankle/Foot ROM WFL No Dorsiflexion with Knee Flexed 5 Dorsiflexion with Knee Extended 0 PT-OP-L Special Tests Start: 10/03/23 16:35 Freq: Status: Active Protocol: Document 10/04/23 10:29 [facility] (Rec: 10/04/23 13:21 [facility] [id number]) Special Tests Lumbar Spine Special Tests Straight Leg Raise Test Results + HS tightness PT-OP-M Strength Start: 10/03/23 16:35 Freq: Status: Active Protocol: Document 10/04/23 10:29 [facility] (Rec: 10/04/23 13:21 [facility] [id number]) Trunk Strength Trunk Manual Muscle Testing Core Stabilization poor PT-OP-Q Treatments Start: 10/03/23 16:35 Freq: Status: Active Protocol: Document 10/27/23 11:18 AB (Rec: 10/27/23 12:12 AB [id number]) Cardio Equipment Treadmill Duration (Minutes) 5 Speed 7-9 Incline trial of incline 2 increased pain Other trial incline 2 decline 1 ~10 sec, mostly on level Therapeutic Exercises Supine Exercises hamstring stretch Supine Exercise Name from hooklying AROM knee extension sciatic ner glide pattern Side bilateral Reps/Minutes 10 X 2 Comments verbal cues Sitting Exercises seated breathing from diaphgragm Reps/Minutes 2 min Comments verbal cues Pt ed to perform when riding in car as a passenger Standing Exercises mini squat Side bilateral Reps/Minutes X12 Comments verbal, visual and patient ed use of self tactile cues for hip hinge Therapeutic Activity Therapeutic Activity sit to stand Reps/Minutes X3 Comments Pt ed mechanics of sit to stand, review of hip hinge. Manual Therapy Treatment Soft Tissue Mobilization right quadratus Body Location quadratus lumborum right Mobilization Type Rolling,Sustained Pressure Intensity/Depth Moderate Body Position Sidelying left hamstring Body Location bilateral Mobilization Type Cross-Friction,Rolling Intensity/Depth Moderate Body Position Sidelying lumbar paraspinals Body Location bilateral Mobilization Type Sustained Pressure Intensity/Depth Moderate Body Position Sidelying Comments superficial to moderate PT-OP-R Modalities Start: 10/03/23 16:35 Freq: Status: Active Protocol: Document 10/18/23 09:00 [facility] (Rec: 10/18/23 09:47 [facility] [id number]) Electric Stimulation Electric Stimulation right l/s and SI Intensity 35 Target/Sweep Sweep Patient Position Sidelying Combined With Heat/Cold Cold Pack Infrared Treatment Treatment R l/s and SI Body Position Sidelying Continuous/Pulsed continu Program or Protocal chronic pain and stiffness Comments 6 locations 58 sec ea PT-OP-T Assessment and Plan Start: 10/03/23 16:35 Freq: Status: Active Protocol: Document 10/27/23 11:18 AB (Rec: 10/27/23 12:12 AB [id number]) Physical Therapy Assessment Goals 2 Impairment activity tolerance Impairment Oswestry disability index score 46% Short Term Goal (STG) Decrease Oswestry to no greater than 30% as measure of improved function and activity tolerance STG Duration 11/20/23 Longterm Goal (LTG) Decrease Oswestry to no greater than 15% as measure of imroved function and activity toleranc.e LTG Duration 01/04/24 1 Impairment lumbar spine pain as high as 8 /10 Impairment LBP and ronal LE pain 6/10, spikes to 8/10 at times Short Term Goal (STG) Decrease pain by at least 50% with all usual activities STG Duration 11/20/23 Chemical Analyst Goal (LTG) Decrease pain by at least 75% with all usual activities LTG Duration 01/04/24 Assessment Summary Assessment Patient reports back feels better end of session, right hip pain a little work. Reports increased pain from 5/ 10 to 7/10 back pain walking on treadmill starting in less than 5 minutes and no improvement in pain with incline or decline. Physical Therapy Plan Frequency and Duration Frequency of Treatment 2x/Week Duration of treatment (weeks) 12 Plan of Care Start Date 10/04/23 Plan of Care End Date 01/04/24 Next Visit Focus/Plan Next Note Type Treatment Note Next Visit Plan Continue manual therapy, cold laser, IFES as needed. Treadmill warm up with cues for core activation and postural correction as able with gait. Review mini squats post calf stretch and HS stretch [id number]
--- NOTE | 2023-11-04 14:31 | PT.OTN ---
Current Diagnoses Spondylolisthesis, lumbar region (11/04/23) Weakness (11/04/23) Physical Therapy Treatment Note PT-OP-A Visit Information Start: 10/03/23 16:35 Freq: Status: Active Protocol: Document 11/04/23 08:51 AB (Rec: 11/04/23 10:30 AB [id number]) Out-Patient Physical Therapy Visit Information Visit Information Visit Type Treatment Note Visit Note Access Code [email or web address] Visit Start Time 09:03 Visit Stop Time 09:46 Visit Number 8 Number of OFFICE ASSISTANCE Visits 4 Evaluation Information Evaluation Date 10/04/23 Precautions Precautions former R SI fusion PT-OP-B Current Condition Start: 10/03/23 16:35 Freq: Status: Active Protocol: Document 10/18/23 09:00 SAK (Rec: 10/18/23 09:47 SAK [id number]) Current Condition History of Current Condition Onset Date 6 weeks ago Current Complaints back pain, ronal leg pain History of Current Condition s/p lumbar spine surgery; 2 stage; cage insertion from anterior, and then L345 fusion second surgery. Had hematuria due to catheter going through urethral wall; will need surgery. Also reports left leg still swollen calf through the foot. Tried Trevor hose, not helpful. Pain level variable depending on Oxycodone and Methocarbomal; takes the edge off, trying to wean off. 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 Wearing back brace, using bone stimulatory 2 hours per day, walking level up to a mile but sometimes can't tolerate. Leg symptoms better, back pain continues at a high level; patient reports sites from robitic surgery. Hasn't yet taken any pain medication today. Tylenol doesn't do much. Still some tingling right leg, heel and foot. Prior history right SI fusion. Prior Treatments and Tests Tried heat, doesn't do much. Hasn't tried ice. Precautions : no walking on hills, no twisting, lifting, bending. Saw surgeon after 2 weeks, then goes back end of October. Future Testing and Treatments Planned as above PT-OP-C Subjective Start: 10/03/23 16:35 Freq: Status: Active Protocol: Document 11/04/23 08:51 AB (Rec: 11/04/23 10:30 AB [id number]) OP-PT Subjective Patient Comments Patient Comments Patient reports he over did the yard work yesterday, rates pain 4-5/10, comments he did more bending and twisting that he should have done, had the brace on, but didn't pay attentiong to it. PT comments right SI and low back is painful/denies radiatiing pain . PT-OP-G Mobility & Gait Start: 10/03/23 16:35 Freq: Status: Active Protocol: Document 10/04/23 10:29 [facility] (Rec: 10/04/23 13:21 [facility] [id number]) OP Gait Assessment Gait Gait Assistance Required: Independent Assistive Devices Assistive Device None Gait Deviations General Gait Pattern Decreased Stride Length, Decreased Feet Clearance Comments Gait Comments wearing back brace Stair Climbing Evaluation Comments Stair Climbing Comments precaution of no walking on elevation at this time PT-OP-H Neuro Start: 10/03/23 16:35 Freq: Status: Active Protocol: Document 10/04/23 10:29 [facility] (Rec: 10/04/23 13:21 [facility] [id number]) Sensation Evaluation Gross Sensation Gross Sensation WNL PT-OP-J Posture/Palpation/Skin Start: 10/03/23 16:35 Freq: Status: Active Protocol: Document 10/04/23 10:29 [facility] (Rec: 10/04/23 13:21 [facility] [id number]) Posture Evaluation Position Standing L-Spine Posture Flattened Palpation Assessment Location incisioni scar Palpation Findings Soft Tissue Tightness Palpation Details abdomen, lumbar spine, buttocks Skin Assessment Edema Assessment left foot, ankle, lower calf Edema Appearance Puffy PT-OP-K Range of Motion Start: 10/03/23 16:35 Freq: Status: Active Protocol: Document 10/04/23 10:29 [facility] (Rec: 10/04/23 13:21 [facility] [id number]) Lumbar Spine Range of Motion Lumbar Spine Active Comments not tested due to recent surgery Hip Goniometric Range of Motion Hip ROM Limitations Comments mod decrease flexibility HS, quads, calves ronal Knee Goniometric Range of Motion Knee ronal Knee ROM WFL Yes Ankle and Foot Goniometric Range of Motion Ankle and Foot ronal Ankle/Foot ROM WFL No Dorsiflexion with Knee Flexed 5 Dorsiflexion with Knee Extended 0 PT-OP-L Special Tests Start: 10/03/23 16:35 Freq: Status: Active Protocol: Document 10/04/23 10:29 [facility] (Rec: 10/04/23 13:21 [facility] [id number]) Special Tests Lumbar Spine Special Tests Straight Leg Raise Test Results + HS tightness PT-OP-M Strength Start: 10/03/23 16:35 Freq: Status: Active Protocol: Document 10/04/23 10:29 SAK (Rec: 10/04/23 13:21 SAK [id number]) Trunk Strength Trunk Manual Muscle Testing Core Stabilization poor PT-OP-Q Treatments Start: 10/03/23 16:35 Freq: Status: Active Protocol: Document 11/04/23 08:51 AB (Rec: 11/04/23 10:30 AB [id number]) Cardio Equipment Bicycle (Upright) Duration (Minutes) 5 Resistance 3,5 Seat Position 6 Therapeutic Exercises Supine Exercises hamstring stretch Supine Exercise Name from hooklying AROM knee extension sciatic ner glide pattern Side bilateral Reps/Minutes 60 sec X 2 each LE Comments verbal cues for ankle pumps X 5 right X 10 left Sidelying Exercises reverse clamshell Side bilateral Reps/Minutes X10 each LE clam Side bilateral Resistance level one light blue Reps/Minutes 10x each LE Sitting Exercises seated hip abd with band Side bilateral Resistance level one light blue band Reps/Minutes one minute X 1 Comments verbal cues Standing Exercises mini squat Side bilateral Resistance light blue band Reps/Minutes 2X10 Comments VC to keep tension on band and to squat to depth that does not inc pain Manual Therapy Treatment Soft Tissue Mobilization right quadratus Body Location quadratus lumborum right Mobilization Type Rolling,Sustained Pressure Intensity/Depth Moderate Body Position Sidelying left hamstring Body Location bilateral Mobilization Type Cross-Friction,Rolling Intensity/Depth Moderate Body Position Sidelying lumbar paraspinals Body Location bilateral Mobilization Type Sustained Pressure Intensity/Depth Moderate Body Position Sidelying Comments superficial to moderate PT-OP-R Modalities Start: 10/03/23 16:35 Freq: Status: Active Protocol: Document 10/18/23 09:00 SAK (Rec: 10/18/23 09:47 [facility] [id number]) Electric Stimulation Electric Stimulation right l/s and SI Intensity 35 Target/Sweep Sweep Patient Position Sidelying Combined With Heat/Cold Cold Pack Infrared Treatment Treatment R l/s and SI Body Position Sidelying Continuous/Pulsed continu Program or Protocal chronic pain and stiffness Comments 6 locations 58 sec ea PT-OP-T Assessment and Plan Start: 10/03/23 16:35 Freq: Status: Active Protocol: Document 11/04/23 08:51 AB (Rec: 11/04/23 10:30 AB [id number]) Physical Therapy Assessment Goals 2 Impairment activity tolerance Impairment Oswestry score 28% Short Term Goal (STG) Decrease Oswestry to no greater than 30% as measure of improved function and activity tolerance STG Duration 11/20/23 [facility] Goal (LTG) Decrease Oswestry to no greater than 15% as measure of imroved function and activity toleranc.e LTG Duration 01/04/24 1 Impairment lumbar spine pain as high as 8 /10 Impairment LBP and ronal LE pain 6/10, spikes to 8/10 at times Short Term Goal (STG) Decrease pain by at least 50% with all usual activities STG Duration 11/20/23 [employer] Goal (LTG) Decrease pain by at least 75% with all usual activities LTG Duration 01/04/24 Assessment Summary Assessment Patient reports having a little more discomfort right quadratus area end of session. Good return demonstration for mini squat with band. Physical Therapy Plan Frequency and Duration Frequency of Treatment 2x/Week Duration of treatment (weeks) 12 Plan of Care Start Date 10/04/23 Plan of Care End Date 01/04/24 Next Visit Focus/Plan Next Note Type Treatment Note Next Visit Plan Continue manual therapy, cold laser, IFES as needed. Treadmill warm up with cues for core activation and postural correction as able with gait. Review mini squats post calf stretch and HS stretch
--- NOTE | 2023-11-09 11:49 | PT.OTN ---
Current Diagnoses Spondylolisthesis, lumbar region (11/09/23) Weakness (11/09/23) Physical Therapy Treatment Note PT-OP-A Visit Information Start: 10/03/23 16:35 Freq: Status: Active Protocol: Document 11/09/23 10:31 SAK (Rec: 11/09/23 11:49 [facility] [id number]) Out-Patient Physical Therapy Visit Information Visit Information Visit Type Treatment Note Visit Start Time 10:32 Evaluation Information Evaluation Date 10/04/23 Precautions Precautions former R SI fusion PT-OP-B Current Condition Start: 10/03/23 16:35 Freq: Status: Active Protocol: Document 10/18/23 09:00 SAK (Rec: 10/18/23 09:47 [facility] [id number]) Current Condition History of Current Condition Onset Date 6 weeks ago Current Complaints back pain, ronal leg pain History of Current Condition s/p lumbar spine surgery; 2 stage; cage insertion from anterior, and then L345 fusion second surgery. Had hematuria due to catheter going through urethral wall; will need surgery. Also reports left leg still swollen calf through the foot. Tried Trevor hose, not helpful. Pain level variable depending on Oxycodone and Methocarbomal; takes the edge off, trying to wean off. 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 Wearing back brace, using bone stimulatory 2 hours per day, walking level up to a mile but sometimes can't tolerate. Leg symptoms better, back pain continues at a high level; patient reports sites from robitic surgery. Hasn't yet taken any pain medication today. Tylenol doesn't do much. Still some tingling right leg, heel and foot. Prior history right SI fusion. Prior Treatments and Tests Tried heat, doesn't do much. Hasn't tried ice. Precautions : no walking on hills, no twisting, lifting, bending. Saw surgeon after 2 weeks, then goes back end of October. Future Testing and Treatments Planned as above PT-OP-C Subjective Start: 10/03/23 16:35 Freq: Status: Active Protocol: Document 11/09/23 10:31 SAK (Rec: 11/09/23 11:49 [facility] [id number]) OP-PT Subjective Patient Comments Patient Comments States he revovers better after irritation. Sore in am, did ex bike 5 min. Overdid in yard, moving rocks. States theoretically doing lifting correctly.Tomorrow is 12 wk post op appointment; had x- rays ronal hips and lumbar spine . Was able to walk 3/4 mile yesterday at no incline, walking a lot around house. Patient states the surgeon told him he wasn't very hopeful about the surgery doing him any good, overall he states he thinks he is a little better so far. PT-OP-G Mobility & Gait Start: 10/03/23 16:35 Freq: Status: Active Protocol: Document 10/04/23 10:29 [facility] (Rec: 10/04/23 13:21 [facility] [id number]) OP Gait Assessment Gait Gait Assistance Required: Independent Assistive Devices Assistive Device None Gait Deviations General Gait Pattern Decreased Stride Length, Decreased Feet Clearance Comments Gait Comments wearing back brace Stair Climbing Evaluation Comments Stair Climbing Comments precaution of no walking on elevation at this time PT-OP-H Neuro Start: 10/03/23 16:35 Freq: Status: Active Protocol: Document 10/04/23 10:29 [facility] (Rec: 10/04/23 13:21 [facility] [id number]) Sensation Evaluation Gross Sensation Gross Sensation WNL PT-OP-J Posture/Palpation/Skin Start: 10/03/23 16:35 Freq: Status: Active Protocol: Document 10/04/23 10:29 [facility] (Rec: 10/04/23 13:21 [facility] [id number]) Posture Evaluation Position Standing L-Spine Posture Flattened Palpation Assessment Location incisioni scar Palpation Findings Soft Tissue Tightness Palpation Details abdomen, lumbar spine, buttocks Skin Assessment Edema Assessment left foot, ankle, lower calf Edema Appearance Puffy PT-OP-K Range of Motion Start: 10/03/23 16:35 Freq: Status: Active Protocol: Document 10/04/23 10:29 [facility] (Rec: 10/04/23 13:21 [facility] [id number]) Lumbar Spine Range of Motion Lumbar Spine Active Comments not tested due to recent surgery Hip Goniometric Range of Motion Hip ROM Limitations Comments mod decrease flexibility HS, quads, calves ronal Knee Goniometric Range of Motion Knee ronal Knee ROM WFL Yes Ankle and Foot Goniometric Range of Motion Ankle and Foot ronal Ankle/Foot ROM WFL No Dorsiflexion with Knee Flexed 5 Dorsiflexion with Knee Extended 0 PT-OP-L Special Tests Start: 10/03/23 16:35 Freq: Status: Active Protocol: Document 10/04/23 10:29 SAK (Rec: 10/04/23 13:21 SAK [id number]) Special Tests Lumbar Spine Special Tests Straight Leg Raise Test Results + HS tightness PT-OP-M Strength Start: 10/03/23 16:35 Freq: Status: Active Protocol: Document 10/04/23 10:29 SAK (Rec: 10/04/23 13:21 SAK [id number]) Trunk Strength Trunk Manual Muscle Testing Core Stabilization poor PT-OP-Q Treatments Start: 10/03/23 16:35 Freq: Status: Active Protocol: Document 11/09/23 10:31 SAK (Rec: 11/09/23 11:49 SAK [id number]) Therapeutic Exercises Supine Exercises Supine march Reps/Minutes 10x Comments cues for core activation, stable pelvis hamstring stretch Supine Exercise Name from hooklying AROM knee extension sciatic ner glide pattern Side bilateral Reps/Minutes 60 sec X 2 each LE Comments verbal cues for ankle pumps X 5 right X 10 left shoulder ext swapna Supine Exercise Name ADDED TO hep Side bilateral Reps/Minutes 10x Comments knees bent, cues for core TrA thigh push Side bilateral Reps/Minutes 10x each LE TrA with arms overhead Supine Exercise Name overhead raise, and lateral fly Side bilateral Resistance 2# Reps/Minutes 10x Comments cues for core stab isometric shoulder ext Reps/Minutes 10x5 Comments cues for core activation, pillow squeeze Reps/Minutes 10x Comments cues for core activation glut set Side bilateral Reps/Minutes 10x TrA Supine Exercise Name review Reps/Minutes 5x Comments verbal and tactile cues Sitting Exercises seated breathing from diaphgragm Reps/Minutes 2 min Comments cues to expand and stretch from the inside out Manual Therapy Treatment Soft Tissue Mobilization right piriformis Mobilization Type Sustained Pressure Intensity/Depth mod Body Position side lumbar paraspinals Body Location bilateral Mobilization Type Myofascial Release,Strumming Intensity/Depth Moderate Body Position Sidelying Comments superficial to moderate Self-Care/Home Management Treatment Education Patient Education Body Mechanics,Home Exercise Program,Pain Management, Posture Other Education Continue to stress not overdoing activity, not lifting heavy objects at this time during post-op healing and for back protection PT-OP-R Modalities Start: 10/03/23 16:35 Freq: Status: Active Protocol: Document 11/09/23 10:31 [facility] (Rec: 11/09/23 11:49 [facility] [id number]) Hot Pack/Cold Pack Treatment Hot Pack Location right IT band and piriformis Patient Position Sidelying Patient Tolerance Good Comments after manual, reports dec pain and stiffness PT-OP-T Assessment and Plan Start: 10/03/23 16:35 Freq: Status: Active Protocol: Document 11/09/23 10:31 [facility] (Rec: 11/09/23 11:49 [facility] [id number]) Physical Therapy Assessment Goals 3 Impairment gait Impairment patient unable to take walks for activity and exercise as previously 2-3 mi Short Term Goal (STG) Patient will be able to walk at least 1 mile without an increase in pain 11/20/23: reports inc pain after walkng 3/4 mile STG Duration 11/20/23 [facility] Goal (LTG) Patient will be able to walk at least 2 miles including incline without an increase in pain LTG Duration 01/04/24 2 Impairment activity tolerance Impairment Oswestry score 28% Short Term Goal (STG) Decrease Oswestry to no greater than 30% as measure of improved function and activity tolerance 11/09/23: min progress largely due to patient overdoing activity STG Duration 11/20/23 [facility] Goal (LTG) Decrease Oswestry to no greater than 15% as measure of imroved function and activity toleranc.e LTG Duration 01/04/24 1 Impairment lumbar spine pain as high as 8 /10 Impairment LBP and ronal LE pain 6/10, spikes to 8/10 at times Short Term Goal (STG) Decrease pain by at least 50% with all usual activities 11/09/23: min progress due to patient overdoing STG Duration 11/20/23 [employer] Qualified Goal (LTG) Decrease pain by at least 75% with all usual activities LTG Duration 01/04/24 Assessment Summary Assessment Patient continues to overdo with gardening activities at home despite instruction to wait. Walking continues to be uncomfortable, encouraged water walking. Emphasis today on foundational core stabilization with further education importance of core stab with all functional activities. Tightness ronal lumbar paraspinals and right piriformis. Physical Therapy Plan Frequency and Duration Frequency of Treatment 2x/Week Duration of treatment (weeks) 12 Plan of Care Start Date 10/04/23 Plan of Care End Date 01/04/24 Next Visit Focus/Plan Next Note Type Treatment Note Next Visit Plan Discuss outcome of physician visit, continue per physician recommendations. Emphasis on postural correction and core stab with all activities, improved mechanics with functional mobility. Consider use of sport cord and leg press with light resistance.
--- NOTE | 2023-11-11 13:09 | PT.OTN ---
Current Diagnoses Spondylolisthesis, lumbar region (11/11/23) Weakness (11/11/23) Physical Therapy Treatment Note PT-OP-A Visit Information Start: 10/03/23 16:35 Freq: Status: Active Protocol: Document 11/11/23 08:07 AB (Rec: 11/11/23 13:08 AB [id number]) Out-Patient Physical Therapy Visit Information Visit Information Visit Type Treatment Note Visit Note Access Code [email or web address] Visit Start Time 09:47 Visit Stop Time 10:29 Visit Number 10 Number of INFORMATION SYSTEMS TECHNICIAN Visits 1 Evaluation Information Evaluation Date 10/04/23 Precautions Precautions former R SI fusion PT-OP-B Current Condition Start: 10/03/23 16:35 Freq: Status: Active Protocol: Document 10/18/23 09:00 SAK (Rec: 10/18/23 09:47 SAK [id number]) Current Condition History of Current Condition Onset Date 6 weeks ago Current Complaints back pain, ronal leg pain History of Current Condition s/p lumbar spine surgery; 2 stage; cage insertion from anterior, and then L345 fusion second surgery. Had hematuria due to catheter going through urethral wall; will need surgery. Also reports left leg still swollen calf through the foot. Tried Trevor hose, not helpful. Pain level variable depending on Oxycodone and Methocarbomal; takes the edge off, trying to wean off. 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 Wearing back brace, using bone stimulatory 2 hours per day, walking level up to a mile but sometimes can't tolerate. Leg symptoms better, back pain continues at a high level; patient reports sites from robitic surgery. Hasn't yet taken any pain medication today. Tylenol doesn't do much. Still some tingling right leg, heel and foot. Prior history right SI fusion. Prior Treatments and Tests Tried heat, doesn't do much. Hasn't tried ice. Precautions : no walking on hills, no twisting, lifting, bending. Saw surgeon after 2 weeks, then goes back end of October. Future Testing and Treatments Planned as above PT-OP-C Subjective Start: 10/03/23 16:35 Freq: Status: Active Protocol: Document 11/11/23 08:07 AB (Rec: 11/11/23 13:08 AB [id number]) OP-PT Subjective Patient Comments Patient Comments Patient reports he had his 12 week follow up with MD and was told that he cannot hurt the work the MD did. Patient reports MD said he could resume bending lifting twisting, comments prior surgeries he was told he should never lift more than 30 lb. Patient reports he is pretty sore due to spent a lot of time yesterday in the car shopping in [place]. PT-OP-G Mobility & Gait Start: 10/03/23 16:35 Freq: Status: Active Protocol: Document 10/04/23 10:29 [facility] (Rec: 10/04/23 13:21 [facility] [id number]) OP Gait Assessment Gait Gait Assistance Required: Independent Assistive Devices Assistive Device None Gait Deviations General Gait Pattern Decreased Stride Length, Decreased Feet Clearance Comments Gait Comments wearing back brace Stair Climbing Evaluation Comments Stair Climbing Comments precaution of no walking on elevation at this time PT-OP-H Neuro Start: 10/03/23 16:35 Freq: Status: Active Protocol: Document 10/04/23 10:29 [facility] (Rec: 10/04/23 13:21 [facility] [id number]) Sensation Evaluation Gross Sensation Gross Sensation WNL PT-OP-J Posture/Palpation/Skin Start: 10/03/23 16:35 Freq: Status: Active Protocol: Document 10/04/23 10:29 [facility] (Rec: 10/04/23 13:21 [facility] [id number]) Posture Evaluation Position Standing L-Spine Posture Flattened Palpation Assessment Location incisioni scar Palpation Findings Soft Tissue Tightness Palpation Details abdomen, lumbar spine, buttocks Skin Assessment Edema Assessment left foot, ankle, lower calf Edema Appearance Puffy PT-OP-K Range of Motion Start: 10/03/23 16:35 Freq: Status: Active Protocol: Document 10/04/23 10:29 [facility] (Rec: 10/04/23 13:21 [facility] [id number]) Lumbar Spine Range of Motion Lumbar Spine Active Comments not tested due to recent surgery Hip Goniometric Range of Motion Hip ROM Limitations Comments mod decrease flexibility HS, quads, calves ronal Knee Goniometric Range of Motion Knee ronal Knee ROM WFL Yes Ankle and Foot Goniometric Range of Motion Ankle and Foot ronal Ankle/Foot ROM WFL No Dorsiflexion with Knee Flexed 5 Dorsiflexion with Knee Extended 0 PT-OP-L Special Tests Start: 10/03/23 16:35 Freq: Status: Active Protocol: Document 10/04/23 10:29 SAK (Rec: 10/04/23 13:21 SAK [id number]) Special Tests Lumbar Spine Special Tests Straight Leg Raise Test Results + HS tightness PT-OP-M Strength Start: 10/03/23 16:35 Freq: Status: Active Protocol: Document 10/04/23 10:29 SAK (Rec: 10/04/23 13:21 SAK [id number]) Trunk Strength Trunk Manual Muscle Testing Core Stabilization poor PT-OP-Q Treatments Start: 10/03/23 16:35 Freq: Status: Active Protocol: Document 11/11/23 08:07 AB (Rec: 11/11/23 13:08 AB [id number]) Gym Equipment Shuttle Recovery bilateral Details VC to avoid locking knees Resistance one dark blue band then 2 bands Shuttle Recovery Platform Stable Reps/Time X15 X 2 Therapeutic Exercises Supine Exercises Pallof press Side bilateral Resistance level 2 then level one band Reps/Minutes X 5 to left then X 15 X 2left and right side X10 on ball Comments reports feeling it in the back with level 2 Standing Exercises bottoms up standing hamstring stretch Standing Exercise Name UE's resting on pillows at table height Side bilateral Reps/Minutes X15 X 2 Comments verbal and visual cues Manual Therapy Treatment Soft Tissue Mobilization right piriformis Body Location bilateral Mobilization Type Cross-Friction,Sustained Pressure Body Position side right quadratus Body Location quadratus lumborum bilateral Mobilization Type Rolling,Sustained Pressure Intensity/Depth Moderate Body Position Sidelying left hamstring Body Location bilateral Mobilization Type Cross-Friction,Rolling Intensity/Depth Moderate Body Position Sidelying lumbar paraspinals Body Location bilateral Mobilization Type Sustained Pressure Intensity/Depth Moderate Body Position Sidelying Comments superficial to moderate PT-OP-R Modalities Start: 10/03/23 16:35 Freq: Status: Active Protocol: Document 11/09/23 10:31 SAK (Rec: 11/09/23 11:49 SAK [id number]) Hot Pack/Cold Pack Treatment Hot Pack Location right IT band and piriformis Patient Position Sidelying Patient Tolerance Good Comments after manual, reports dec pain and stiffness PT-OP-T Assessment and Plan Start: 10/03/23 16:35 Freq: Status: Active Protocol: Document 11/11/23 08:07 AB (Rec: 11/11/23 13:08 AB [id number]) Physical Therapy Assessment Goals 3 Impairment gait Impairment patient unable to take walks for activity and exercise as previously 2-3 mi Short Term Goal (STG) Patient will be able to walk at least 1 mile without an increase in pain 11/20/23: reports inc pain after walkng 3/4 mile STG Duration 11/20/23 Advertisement Compositor Goal (LTG) Patient will be able to walk at least 2 miles including incline without an increase in pain LTG Duration 01/04/24 2 Impairment activity tolerance Impairment Oswestry score 28% Short Term Goal (STG) Decrease Oswestry to no greater than 30% as measure of improved function and activity tolerance 11/09/23: min progress largely due to patient overdoing activity STG Duration 11/20/23 Halfway Goal (LTG) Decrease Oswestry to no greater than 15% as measure of imroved function and activity toleranc.e LTG Duration 01/04/24 1 Impairment lumbar spine pain as high as 8 /10 Impairment LBP and ronal LE pain /10, spikes to 8/10 at times Short Term Goal (STG) Decrease pain by at least 50% with all usual activities 11/09/23: min progress due to patient overdoing STG Duration 11/20/23 Halfway Goal (LTG) Decrease pain by at least 75% with all usual activities LTG Duration 01/04/24 Assessment Summary Assessment Patient reports he is not as sore as when he came in. Physical Therapy Plan Frequency and Duration Frequency of Treatment 2x/Week Duration of treatment (weeks) 12 Plan of Care Start Date 10/04/23 Plan of Care End Date 01/04/24 Next Visit Focus/Plan Next Note Type Treatment Note Next Visit Plan Discuss outcome of physician visit, continue per physician recommendations. Emphasis on postural correction and core stab with all activities, improved mechanics with functional mobility. Consider use of sport cord and leg press with light resistance.
--- NOTE | 2023-11-15 16:33 | PT.OTN ---
Current Diagnoses Spondylolisthesis, lumbar region (11/15/23) Weakness (11/15/23) Physical Therapy Treatment Note PT-OP-A Visit Information Start: 10/03/23 16:35 Freq: Status: Active Protocol: Document 11/15/23 12:53 AB (Rec: 11/15/23 16:33 AB [id number]) Out-Patient Physical Therapy Visit Information Visit Information Visit Type Treatment Note Visit Note Access Code [email or web address] Visit Start Time 13:03 Visit Stop Time 13:47 Visit Number 11 Number of ORTHOTICS PROSTHETICS ASSISTANT Visits 2 Evaluation Information Evaluation Date 10/04/23 Precautions Precautions former R SI fusion PT-OP-B Current Condition Start: 10/03/23 16:35 Freq: Status: Active Protocol: Document 10/18/23 09:00 SAK (Rec: 10/18/23 09:47 SAK [id number]) Current Condition History of Current Condition Onset Date 6 weeks ago Current Complaints back pain, ronal leg pain History of Current Condition s/p lumbar spine surgery; 2 stage; cage insertion from anterior, and then L345 fusion second surgery. Had hematuria due to catheter going through urethral wall; will need surgery. Also reports left leg still swollen calf through the foot. Tried Trevor hose, not helpful. Pain level variable depending on Oxycodone and Methocarbomal; takes the edge off, trying to wean off. 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 Wearing back brace, using bone stimulatory 2 hours per day, walking level up to a mile but sometimes can't tolerate. Leg symptoms better, back pain continues at a high level; patient reports sites from robitic surgery. Hasn't yet taken any pain medication today. Tylenol doesn't do much. Still some tingling right leg, heel and foot. Prior history right SI fusion. Prior Treatments and Tests Tried heat, doesn't do much. Hasn't tried ice. Precautions : no walking on hills, no twisting, lifting, bending. Saw surgeon after 2 weeks, then goes back end of October. Future Testing and Treatments Planned as above PT-OP-C Subjective Start: 10/03/23 16:35 Freq: Status: Active Protocol: Document 11/15/23 12:53 AB (Rec: 11/15/23 16:33 AB [id number]) OP-PT Subjective Patient Comments Patient Comments Patient reports he undid everything that was done previous session. Patient implies he has been lifting more than 24 hours. Patient reports it was hard to straighten up this morning. PT-OP-G Mobility & Gait Start: 10/03/23 16:35 Freq: Status: Active Protocol: Document 10/04/23 10:29 SAK (Rec: 10/04/23 13:21 [facility] [id number]) OP Gait Assessment Gait Gait Assistance Required: Independent Assistive Devices Assistive Device None Gait Deviations General Gait Pattern Decreased Stride Length, Decreased Feet Clearance Comments Gait Comments wearing back brace Stair Climbing Evaluation Comments Stair Climbing Comments precaution of no walking on elevation at this time PT-OP-H Neuro Start: 10/03/23 16:35 Freq: Status: Active Protocol: Document 10/04/23 10:29 SAK (Rec: 10/04/23 13:21 [facility] [id number]) Sensation Evaluation Gross Sensation Gross Sensation WNL PT-OP-J Posture/Palpation/Skin Start: 10/03/23 16:35 Freq: Status: Active Protocol: Document 10/04/23 10:29 [facility] (Rec: 10/04/23 13:21 [facility] [id number]) Posture Evaluation Position Standing L-Spine Posture Flattened Palpation Assessment Location incisioni scar Palpation Findings Soft Tissue Tightness Palpation Details abdomen, lumbar spine, buttocks Skin Assessment Edema Assessment left foot, ankle, lower calf Edema Appearance Puffy PT-OP-K Range of Motion Start: 10/03/23 16:35 Freq: Status: Active Protocol: Document 10/04/23 10:29 [facility] (Rec: 10/04/23 13:21 [facility] [id number]) Lumbar Spine Range of Motion Lumbar Spine Active Comments not tested due to recent surgery Hip Goniometric Range of Motion Hip ROM Limitations Comments mod decrease flexibility HS, quads, calves ronal Knee Goniometric Range of Motion Knee ronal Knee ROM WFL Yes Ankle and Foot Goniometric Range of Motion Ankle and Foot ronal Ankle/Foot ROM WFL No Dorsiflexion with Knee Flexed 5 Dorsiflexion with Knee Extended 0 PT-OP-L Special Tests Start: 10/03/23 16:35 Freq: Status: Active Protocol: Document 10/04/23 10:29 [facility] (Rec: 10/04/23 13:21 [facility] [id number]) Special Tests Lumbar Spine Special Tests Straight Leg Raise Test Results + HS tightness PT-OP-M Strength Start: 10/03/23 16:35 Freq: Status: Active Protocol: Document 10/04/23 10:29 SAK (Rec: 10/04/23 13:21 SAK [id number]) Trunk Strength Trunk Manual Muscle Testing Core Stabilization poor PT-OP-Q Treatments Start: 10/03/23 16:35 Freq: Status: Active Protocol: Document 11/15/23 12:53 AB (Rec: 11/15/23 16:33 AB [id number]) Therapeutic Exercises Supine Exercises figure 4 stretch Side right Reps/Minutes X1 Comments initiated, but discontinued reports feeling it in back piriformis stretch Side bilateral Reps/Minutes 60 seconds X 2 Standing Exercises single leg lift with UE support Standing Exercise Name with UE support to foot stool height with pillow on foot stool. Reps/Minutes X5 each LE Comments verbal and visual cues Pallof press Resistance level 1& 2 band Reps/Minutes X10 X 2 level one standing level 2 on ball bottoms up standing hamstring stretch Standing Exercise Name UE's resting on pillows at table height Side bilateral Reps/Minutes X15 Comments verbal and visual cues Therapeutic Activity Therapeutic Activity lifting Name 3.5 to 10 lb waist pivot, knee level and overhead Reps/Minutes X5 each Comments 10 lb for waist pivot, Verbal cues for weight shifting and stepping through turns and overhead lift. Review of selft tactile cues for hip hinge for knee level lifts Manual Therapy Treatment Soft Tissue Mobilization right piriformis Body Location bilateral Mobilization Type Cross-Friction,Sustained Pressure Body Position side right quadratus Body Location quadratus lumborum bilateral Mobilization Type Rolling,Sustained Pressure Intensity/Depth Moderate Body Position Sidelying left hamstring Body Location bilateral Mobilization Type Cross-Friction,Rolling Intensity/Depth Moderate Body Position Sidelying lumbar paraspinals Body Location bilateral Mobilization Type Sustained Pressure Intensity/Depth Moderate Body Position Sidelying Comments superficial to moderate PT-OP-R Modalities Start: 10/03/23 16:35 Freq: Status: Active Protocol: Document 11/09/23 10:31 SAK (Rec: 11/09/23 11:49 SAK [id number]) Hot Pack/Cold Pack Treatment Hot Pack Location right IT band and piriformis Patient Position Sidelying Patient Tolerance Good Comments after manual, reports dec pain and stiffness PT-OP-T Assessment and Plan Start: 10/03/23 16:35 Freq: Status: Active Protocol: Document 11/15/23 12:53 AB (Rec: 11/15/23 16:33 AB [id number]) Physical Therapy Assessment Goals 3 Impairment gait Impairment patient unable to take walks for activity and exercise as previously 2-3 mi Short Term Goal (STG) Patient will be able to walk at least 1 mile without an increase in pain 11/20/23: reports inc pain after walkng 3/4 mile STG Duration 11/20/23 Correction Goal (LTG) Patient will be able to walk at least 2 miles including incline without an increase in pain LTG Duration 01/04/24 2 Impairment activity tolerance Impairment Oswestry score 28% Short Term Goal (STG) Decrease Oswestry to no greater than 30% as measure of improved function and activity tolerance 11/09/23: min progress largely due to patient overdoing activity STG Duration 11/20/23 Gun Synchronizer Goal (LTG) Decrease Oswestry to no greater than 15% as measure of imroved function and activity toleranc.e LTG Duration 01/04/24 1 Impairment lumbar spine pain as high as 8 /10 Impairment LBP and ronal LE pain 6/10, spikes to 8/10 at times Short Term Goal (STG) Decrease pain by at least 50% with all usual activities 11/09/23: min progress due to patient overdoing STG Duration 11/20/23 Correction Goal (LTG) Decrease pain by at least 75% with all usual activities LTG Duration 01/04/24 Assessment Summary Assessment Patient reports feeling better , end of session. Patient able to perform lifts with 10 lb and and lower weights from waist(pivot), overhead and knee level. Decreased hamstring length limits lower depth squats due to increased Post pelvic tilt on attempt. Physical Therapy Plan Frequency and Duration Frequency of Treatment 2x/Week Duration of treatment (weeks) 12 Plan of Care Start Date 10/04/23 Plan of Care End Date 01/04/24 Next Visit Focus/Plan Next Note Type Treatment Note Next Visit Plan Emphasis on postural correction and core stab with all activities, improved mechanics with functional mobility. Consider use of sport cord and leg press with light resistance. Single leg lift, possibly review lifts if time permits.
--- NOTE | 2023-11-17 12:51 | PT.OTN ---
Current Diagnoses Spondylolisthesis, lumbar region (11/17/23) Weakness (11/17/23) Physical Therapy Treatment Note PT-OP-A Visit Information Start: 10/03/23 16:35 Freq: Status: Active Protocol: Document 11/17/23 08:13 AB (Rec: 11/17/23 09:47 AB [id number]) Out-Patient Physical Therapy Visit Information Visit Information Visit Type Treatment Note Visit Note Access Code [id number] Visit Start Time 09:03 Visit Stop Time 09:47 Visit Number 12 Number of MECHATRONICS TECHNOLOGIST Visits 3 Evaluation Information Evaluation Date 10/04/23 Precautions Precautions former R SI fusion PT-OP-B Current Condition Start: 10/03/23 16:35 Freq: Status: Active Protocol: Document 10/18/23 09:00 SAK (Rec: 10/18/23 09:47 SAK [id number]) Current Condition History of Current Condition Onset Date 6 weeks ago Current Complaints back pain, ronal leg pain History of Current Condition s/p lumbar spine surgery; 2 stage; cage insertion from anterior, and then L345 fusion second surgery. Had hematuria due to catheter going through urethral wall; will need surgery. Also reports left leg still swollen calf through the foot. Tried Trevor hose, not helpful. Pain level variable depending on Oxycodone and Methocarbomal; takes the edge off, trying to wean off. 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 Wearing back brace, using bone stimulatory 2 hours per day, walking level up to a mile but sometimes can't tolerate. Leg symptoms better, back pain continues at a high level; patient reports sites from robitic surgery. Hasn't yet taken any pain medication today. Tylenol doesn't do much. Still some tingling right leg, heel and foot. Prior history right SI fusion. Prior Treatments and Tests Tried heat, doesn't do much. Hasn't tried ice. Precautions : no walking on hills, no twisting, lifting, bending. Saw surgeon after 2 weeks, then goes back end of October. Future Testing and Treatments Planned as above PT-OP-C Subjective Start: 10/03/23 16:35 Freq: Status: Active Protocol: Document 11/17/23 08:13 AB (Rec: 11/17/23 09:47 AB [id number]) OP-PT Subjective Patient Comments Patient Comments Patient reports he has been flared up since previous session, sit to stand is painful but OK once upright, reports he is unable to stand fully upright when he gets up in the morning. Patient reports sitting in the car during ride to [place], had difficulty standing up when getting out of the car. PT-OP-G Mobility & Gait Start: 10/03/23 16:35 Freq: Status: Active Protocol: Document 10/04/23 10:29 SAK (Rec: 10/04/23 13:21 [facility] [id number]) OP Gait Assessment Gait Gait Assistance Required: Independent Assistive Devices Assistive Device None Gait Deviations General Gait Pattern Decreased Stride Length, Decreased Feet Clearance Comments Gait Comments wearing back brace Stair Climbing Evaluation Comments Stair Climbing Comments precaution of no walking on elevation at this time PT-OP-H Neuro Start: 10/03/23 16:35 Freq: Status: Active Protocol: Document 10/04/23 10:29 SAK (Rec: 10/04/23 13:21 [facility] [id number]) Sensation Evaluation Gross Sensation Gross Sensation WNL PT-OP-J Posture/Palpation/Skin Start: 10/03/23 16:35 Freq: Status: Active Protocol: Document 10/04/23 10:29 SAK (Rec: 10/04/23 13:21 [facility] [id number]) Posture Evaluation Position Standing L-Spine Posture Flattened Palpation Assessment Location incisioni scar Palpation Findings Soft Tissue Tightness Palpation Details abdomen, lumbar spine, buttocks Skin Assessment Edema Assessment left foot, ankle, lower calf Edema Appearance Puffy PT-OP-K Range of Motion Start: 10/03/23 16:35 Freq: Status: Active Protocol: Document 10/04/23 10:29 SAK (Rec: 10/04/23 13:21 [facility] [id number]) Lumbar Spine Range of Motion Lumbar Spine Active Comments not tested due to recent surgery Hip Goniometric Range of Motion Hip ROM Limitations Comments mod decrease flexibility HS, quads, calves ronal Knee Goniometric Range of Motion Knee ronal Knee ROM WFL Yes Ankle and Foot Goniometric Range of Motion Ankle and Foot ronal Ankle/Foot ROM WFL No Dorsiflexion with Knee Flexed 5 Dorsiflexion with Knee Extended 0 PT-OP-L Special Tests Start: 10/03/23 16:35 Freq: Status: Active Protocol: Document 10/04/23 10:29 SAK (Rec: 10/04/23 13:21 [facility] [id number]) Special Tests Lumbar Spine Special Tests Straight Leg Raise Test Results + HS tightness PT-OP-M Strength Start: 10/03/23 16:35 Freq: Status: Active Protocol: Document 10/04/23 10:29 [facility] (Rec: 10/04/23 13:21 SAK [id number]) Trunk Strength Trunk Manual Muscle Testing Core Stabilization poor PT-OP-Q Treatments Start: 10/03/23 16:35 Freq: Status: Active Protocol: Document 11/17/23 08:13 AB (Rec: 11/17/23 09:47 AB [id number]) Gym Equipment Shuttle Recovery bilateral Details VC to avoid locking knees Resistance 50 lb light blue bands Reps/Time 15X2 Therapeutic Exercises Sidelying Exercises reverse clamshell Side bilateral Reps/Minutes X10 each LE clam Side bilateral Reps/Minutes 10x each LE Sitting Exercises seated breathing from diaphgragm Reps/Minutes 1 min Comments cues to expand core/abdominal area Standing Exercises Pallof press Resistance level 3 band Reps/Minutes 15X2 bottoms up standing hamstring stretch Standing Exercise Name UE's resting on pillows at table height Side bilateral Reps/Minutes X15 Comments verbal and visual cues PT-OP-R Modalities Start: 10/03/23 16:35 Freq: Status: Active Protocol: Document 11/09/23 10:31 [facility] (Rec: 11/09/23 11:49 [facility] [id number]) Hot Pack/Cold Pack Treatment Hot Pack Location right IT band and piriformis Patient Position Sidelying Patient Tolerance Good Comments after manual, reports dec pain and stiffness PT-OP-T Assessment and Plan Start: 10/03/23 16:35 Freq: Status: Active Protocol: Document 11/17/23 08:13 AB (Rec: 11/17/23 09:47 AB [id number]) Physical Therapy Assessment Goals 3 Impairment gait Impairment patient unable to take walks for activity and exercise as previously 2-3 mi Short Term Goal (STG) Patient will be able to walk at least 1 mile without an increase in pain 11/20/23: reports inc pain after walkng 3/4 mile STG Duration 11/20/23 Custodial Goal (LTG) Patient will be able to walk at least 2 miles including incline without an increase in pain LTG Duration 01/04/24 2 Impairment activity tolerance Impairment Oswestry score 28% Short Term Goal (STG) Decrease Oswestry to no greater than 30% as measure of improved function and activity tolerance 11/09/23: min progress largely due to patient overdoing activity STG Duration 11/20/23 Custodial Goal (LTG) Decrease Oswestry to no greater than 15% as measure of imroved function and activity toleranc.e LTG Duration 01/04/24 1 Impairment lumbar spine pain as high as 8 /10 Impairment LBP and ronal LE pain 10/30, spikes to 8/10 at times Short Term Goal (STG) Decrease pain by at least 50% with all usual activities 11/09/23: min progress due to patient overdoing STG Duration 11/20/23 Custodial Goal (LTG) Decrease pain by at least 75% with all usual activities LTG Duration 01/04/24 Physical Therapy Plan Frequency and Duration Frequency of Treatment 2x/Week Duration of treatment (weeks) 12 Plan of Care Start Date 10/04/23 Plan of Care End Date 01/04/24 Next Visit Focus/Plan Next Note Type Treatment Note Next Visit Plan Emphasis on postural correction and core stab with all activities, improved mechanics with functional mobility. Consider use of sport cord and leg press with light resistance. Single leg lift, possibly review lifts if time permits.
--- NOTE | 2023-12-14 16:38 | PT.OTN ---
Current Diagnoses Spondylolisthesis, lumbar region (12/14/23) Weakness (12/14/23) Physical Therapy Treatment Note PT-OP-A Visit Information Start: 10/03/23 16:35 Freq: Status: Active Protocol: Document 12/14/23 10:27 SAK (Rec: 12/14/23 11:15 [facility] [id number]) Out-Patient Physical Therapy Visit Information Visit Information Visit Type Treatment Note Visit Start Time 10:35 Visit Stop Time 11:25 Visit Number 13 Number of DIGITAL CAMERA TECHNICIAN Visits 0 Evaluation Information Evaluation Date 10/04/23 Precautions Precautions former R SI fusion PT-OP-B Current Condition Start: 10/03/23 16:35 Freq: Status: Active Protocol: Document 12/14/23 10:27 SAK (Rec: 12/14/23 11:15 [facility] [id number]) Current Condition History of Current Condition Onset Date 6 weeks ago Current Complaints back pain, ronal leg pain History of Current Condition s/p lumbar spine surgery; 2 stage; cage insertion from anterior, and then L345 fusion second surgery. Had hematuria due to catheter going through urethral wall; will need surgery. Also reports left leg still swollen calf through the foot. Tried Trevor hose, not helpful. Pain level variable depending on Oxycodone and Methocarbomal; takes the edge off, trying to wean off. 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 Wearing back brace, using bone stimulatory 2 hours per day, walking level up to a mile but sometimes can't tolerate. Leg symptoms better, back pain continues at a high level; patient reports sites from robitic surgery. Hasn't yet taken any pain medication today. Tylenol doesn't do much. Still some tingling right leg, heel and foot. Prior history right SI fusion. Prior Treatments and Tests Tried heat, doesn't do much. Hasn't tried ice. Precautions : no walking on hills, no twisting, lifting, bending. Saw surgeon after 2 weeks, then goes back end of October. Future Testing and Treatments Planned as above PT-OP-C Subjective Start: 10/03/23 16:35 Freq: Status: Active Protocol: Document 12/14/23 10:27 SAK (Rec: 12/14/23 11:15 [facility] [id number]) OP-PT Subjective Patient Comments Patient Comments Not sure if when started to stretch hamstrings or just that he is doing too much, tends to focus on a task and do all day long and lifts heavy things. Has 2 TENS units but hasn't used, not sure where to put the elctrodes. Pain 09/29 PT-OP-G Mobility & Gait Start: 10/03/23 16:35 Freq: Status: Active Protocol: Document 10/04/23 10:29 SAK (Rec: 10/04/23 13:21 [facility] [id number]) OP Gait Assessment Gait Gait Assistance Required: Independent Assistive Devices Assistive Device None Gait Deviations General Gait Pattern Decreased Stride Length, Decreased Feet Clearance Comments Gait Comments wearing back brace Stair Climbing Evaluation Comments Stair Climbing Comments precaution of no walking on elevation at this time PT-OP-H Neuro Start: 10/03/23 16:35 Freq: Status: Active Protocol: Document 10/04/23 10:29 SAK (Rec: 10/04/23 13:21 [facility] [id number]) Sensation Evaluation Gross Sensation Gross Sensation WNL PT-OP-J Posture/Palpation/Skin Start: 10/03/23 16:35 Freq: Status: Active Protocol: Document 10/04/23 10:29 SAK (Rec: 10/04/23 13:21 [facility] [id number]) Posture Evaluation Position Standing L-Spine Posture Flattened Palpation Assessment Location incisioni scar Palpation Findings Soft Tissue Tightness Palpation Details abdomen, lumbar spine, buttocks Skin Assessment Edema Assessment left foot, ankle, lower calf Edema Appearance Puffy PT-OP-K Range of Motion Start: 10/03/23 16:35 Freq: Status: Active Protocol: Document 10/04/23 10:29 [facility] (Rec: 10/04/23 13:21 [facility] [id number]) Lumbar Spine Range of Motion Lumbar Spine Active Comments not tested due to recent surgery Hip Goniometric Range of Motion Hip ROM Limitations Comments mod decrease flexibility HS, quads, calves ronal Knee Goniometric Range of Motion Knee ronal Knee ROM WFL Yes Ankle and Foot Goniometric Range of Motion Ankle and Foot ronal Ankle/Foot ROM WFL No Dorsiflexion with Knee Flexed 5 Dorsiflexion with Knee Extended 0 PT-OP-L Special Tests Start: 10/03/23 16:35 Freq: Status: Active Protocol: Document 10/04/23 10:29 SAK (Rec: 10/04/23 13:21 SAK [id number]) Special Tests Lumbar Spine Special Tests Straight Leg Raise Test Results + HS tightness PT-OP-M Strength Start: 10/03/23 16:35 Freq: Status: Active Protocol: Document 10/04/23 10:29 SAK (Rec: 10/04/23 13:21 [facility] [id number]) Trunk Strength Trunk Manual Muscle Testing Core Stabilization poor PT-OP-Q Treatments Start: 10/03/23 16:35 Freq: Status: Active Protocol: Document 12/14/23 10:27 [facility] (Rec: 12/14/23 11:15 [facility] [id number]) Cardio Equipment Bicycle (Upright) Duration (Minutes) 6 Resistance 6 Seat Position 6 Other cues for long spine Therapeutic Exercises Sitting Exercises seated breathing from diaphgragm Reps/Minutes 1 min Comments cues to expand core/abdominal area Standing Exercises hip hinge chair squats Reps/Minutes 10x Therapeutic Activity Therapeutic Activity lifting Comments review education for correct posture and body mechanics with lifting with PT demo and patient return demo, 10 lb max Self-Care/Home Management Treatment Education Patient Education Body Mechanics,Home Exercise Program,Pain Management, Posture Other Education TENS use lifting PT-OP-R Modalities Start: 10/03/23 16:35 Freq: Status: Active Protocol: Document 12/14/23 10:27 [facility] (Rec: 12/14/23 11:15 [facility] [id number]) Electric Stimulation Electric Stimulation ronal l/s Body Location ronal LS and SI Intensity 25 Target/Sweep Sweep Combined With Heat/Cold Hot Pack Comments 90/90 position PT-OP-T Assessment and Plan Start: 10/03/23 16:35 Freq: Status: Active Protocol: Document 12/14/23 10:27 [facility] (Rec: 12/14/23 11:15 [facility] [id number]) Physical Therapy Assessment Goals 3 Impairment gait Impairment patient unable to take walks for activity and exercise as previously 2-3 mi Short Term Goal (STG) Patient will be able to walk at least 1 mile without an increase in pain 11/20/23: reports inc pain after walkng 3/4 mile STG Duration 11/20/23 Penitentiary Goal (LTG) Patient will be able to walk at least 2 miles including incline without an increase in pain LTG Duration 01/04/24 2 Impairment activity tolerance Impairment Oswestry score 28% Short Term Goal (STG) Decrease Oswestry to no greater than 30% as measure of improved function and activity tolerance 11/09/23: min progress largely due to patient overdoing activity STG Duration 11/20/23 Decal Cutter Goal (LTG) Decrease Oswestry to no greater than 15% as measure of imroved function and activity toleranc.e LTG Duration 01/04/24 1 Impairment lumbar spine pain as high as 8 /10 Impairment LBP and ronal LE pain 6/10, spikes to 8/10 at times Short Term Goal (STG) Decrease pain by at least 50% with all usual activities 11/09/23: min progress due to patient overdoing STG Duration 11/20/23 Decal Cutter Goal (LTG) Decrease pain by at least 75% with all usual activities LTG Duration 01/04/24 Assessment Summary Assessment Patient reported 6/10 pain after ther ex, decreased back to 5/10 after IFES. Demonstrated improved understanding of lifting technique and hip hinge after instruction and practice. Patient appears to frewquently over do lifting and other activities at home. Also instructed in need to do a couple minutes warm up isometrics core and hips prior to getting up after prolonged sitting. Instructed to decrease intensity of activity and amount of lifting due to continued exacerbation of pain , try TENS. Physical Therapy Plan Frequency and Duration Frequency of Treatment 2x/Week Duration of treatment (weeks) 12 Plan of Care Start Date 10/04/23 Plan of Care End Date 01/04/24 Next Visit Focus/Plan Next Note Type Treatment Note Next Visit Plan ASsess response to today's session, home use of TENS. Trial sport cord, continue functional strengthening.
--- NOTE | 2023-12-19 16:27 | PT.OTN ---
Current Diagnoses Spondylolisthesis, lumbar region (12/19/23) Weakness (12/19/23) Physical Therapy Treatment Note PT-OP-A Visit Information Start: 10/03/23 16:35 Freq: Status: Active Protocol: Document 12/19/23 13:02 [facility] (Rec: 12/19/23 13:50 [facility] [id number]) Out-Patient Physical Therapy Visit Information Visit Information Visit Type Treatment Note Visit Start Time 10:35 Visit Stop Time 11:25 Visit Number 13 Number of SCRUB WOMAN Visits 0 Evaluation Information Evaluation Date 10/04/23 Precautions Precautions former R SI fusion PT-OP-B Current Condition Start: 10/03/23 16:35 Freq: Status: Active Protocol: Document 12/19/23 13:02 [facility] (Rec: 12/19/23 13:50 [facility] [id number]) Current Condition History of Current Condition Onset Date 6 weeks ago Current Complaints back pain, ronal leg pain History of Current Condition s/p lumbar spine surgery; 2 stage; cage insertion from anterior, and then L345 fusion second surgery. Had hematuria due to catheter going through urethral wall; will need surgery. Also reports left leg still swollen calf through the foot. Tried Trevor hose, not helpful. Pain level variable depending on Oxycodone and Methocarbomal; takes the edge off, trying to wean off. 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 Wearing back brace, using bone stimulatory 2 hours per day, walking level up to a mile but sometimes can't tolerate. Leg symptoms better, back pain continues at a high level; patient reports sites from robitic surgery. Hasn't yet taken any pain medication today. Tylenol doesn't do much. Still some tingling right leg, heel and foot. Prior history right SI fusion. Prior Treatments and Tests Tried heat, doesn't do much. Hasn't tried ice. Precautions : no walking on hills, no twisting, lifting, bending. Saw surgeon after 2 weeks, then goes back end of October. Future Testing and Treatments Planned as above PT-OP-C Subjective Start: 10/03/23 16:35 Freq: Status: Active Protocol: Document 12/19/23 13:02 [facility] (Rec: 12/19/23 13:50 [facility] [id number]) OP-PT Subjective Patient Comments Patient Comments Did ok with bike but reports now having a hard time standing up tall, standing up from sitting but is variable. Temporary relief from heat, Methocarbomol seems to help. States he is switching sides during the night, uses knee pillow. Pain worst in the am, mostly left lateral pelvis, hip. Has tried a day where he didn't do much at all but not more than 1 day. States had a garage sale over the weekend so did a lot of crazy activity. Having occasional sharp pain in spine where feels like something is catching. Not focusing on deep breathing. PT-OP-G Mobility & Gait Start: 10/03/23 16:35 Freq: Status: Active Protocol: Document 10/04/23 10:29 [facility] (Rec: 10/04/23 13:21 [facility] [id number]) OP Gait Assessment Gait Gait Assistance Required: Independent Assistive Devices Assistive Device None Gait Deviations General Gait Pattern Decreased Stride Length, Decreased Feet Clearance Comments Gait Comments wearing back brace Stair Climbing Evaluation Comments Stair Climbing Comments precaution of no walking on elevation at this time PT-OP-H Neuro Start: 10/03/23 16:35 Freq: Status: Active Protocol: Document 10/04/23 10:29 [facility] (Rec: 10/04/23 13:21 [facility] [id number]) Sensation Evaluation Gross Sensation Gross Sensation WNL PT-OP-J Posture/Palpation/Skin Start: 10/03/23 16:35 Freq: Status: Active Protocol: Document 10/04/23 10:29 [facility] (Rec: 10/04/23 13:21 [facility] [id number]) Posture Evaluation Position Standing L-Spine Posture Flattened Palpation Assessment Location incisioni scar Palpation Findings Soft Tissue Tightness Palpation Details abdomen, lumbar spine, buttocks Skin Assessment Edema Assessment left foot, ankle, lower calf Edema Appearance Puffy PT-OP-K Range of Motion Start: 10/03/23 16:35 Freq: Status: Active Protocol: Document 10/04/23 10:29 [facility] (Rec: 10/04/23 13:21 [facility] [id number]) Lumbar Spine Range of Motion Lumbar Spine Active Comments not tested due to recent surgery Hip Goniometric Range of Motion Hip ROM Limitations Comments mod decrease flexibility HS, quads, calves ronal Knee Goniometric Range of Motion Knee ronal Knee ROM WFL Yes Ankle and Foot Goniometric Range of Motion Ankle and Foot ronal Ankle/Foot ROM WFL No Dorsiflexion with Knee Flexed 5 Dorsiflexion with Knee Extended 0 PT-OP-L Special Tests Start: 10/03/23 16:35 Freq: Status: Active Protocol: Document 10/04/23 10:29 [facility] (Rec: 10/04/23 13:21 [facility] [id number]) Special Tests Lumbar Spine Special Tests Straight Leg Raise Test Results + HS tightness PT-OP-M Strength Start: 10/03/23 16:35 Freq: Status: Active Protocol: Document 10/04/23 10:29 [facility] (Rec: 10/04/23 13:21 [facility] [id number]) Trunk Strength Trunk Manual Muscle Testing Core Stabilization poor PT-OP-Q Treatments Start: 10/03/23 16:35 Freq: Status: Active Protocol: Document 12/19/23 13:02 [facility] (Rec: 12/19/23 13:50 [facility] [id number]) Cardio Equipment Bicycle (Upright) Duration (Minutes) 8 Resistance 6-8 Seat Position 6 Other cues for long spine, 1.8 miles Gym Equipment Shuttle Recovery bilateral Details VC to avoid locking knees Resistance 50 lb light blue bands Reps/Time 15X2 Therapeutic Exercises Supine Exercises deep breathing Reps/Minutes 6 min Comments verbal and tactile cues Standing Exercises wall posture Reps/Minutes 3 min hip hinge chair squats Reps/Minutes 10x Comments cues for long spine, core stab Self-Care/Home Management Treatment Education Patient Education Body Mechanics,Home Exercise Program,Pain Management, Posture Other Education self massage with tennis ball left buttock; after 5 min reports good relief Heavy emphasis on deep breathing, use of manual resistance, breath into the tight spots PT-OP-R Modalities Start: 10/03/23 16:35 Freq: Status: Active Protocol: Document 12/19/23 13:02 [facility] (Rec: 12/19/23 13:50 [facility] [id number]) Electric Stimulation Electric Stimulation ronal l/s Body Location ronal LS and SI Intensity 25 Target/Sweep Sweep Patient Position Sitting Combined With Heat/Cold Hot Pack Comments 90/90 position Hot Pack/Cold Pack Treatment Hot Pack Location left buttock Patient Position Sidelying Patient Tolerance Good Comments after manual, reports dec pain and stiffness PT-OP-T Assessment and Plan Start: 10/03/23 16:35 Freq: Status: Active Protocol: Document 12/19/23 13:02 [facility] (Rec: 12/19/23 13:50 [facility] [id number]) Physical Therapy Assessment Goals 3 Impairment gait Impairment patient unable to take walks for activity and exercise as previously 2-3 mi Short Term Goal (STG) Patient will be able to walk at least 1 mile without an increase in pain 11/20/23: reports inc pain after walkng 3/4 mile STG Duration 11/20/23 Sandblaster Glass Goal (LTG) Patient will be able to walk at least 2 miles including incline without an increase in pain LTG Duration 01/04/24 2 Impairment activity tolerance Impairment Oswestry score 28% Short Term Goal (STG) Decrease Oswestry to no greater than 30% as measure of improved function and activity tolerance 11/09/23: min progress largely due to patient overdoing activity STG Duration 11/20/23 Shelter Goal (LTG) Decrease Oswestry to no greater than 15% as measure of imroved function and activity toleranc.e LTG Duration 01/04/24 1 Impairment lumbar spine pain as high as 8 /10 Impairment LBP and ronal LE pain 6/10, spikes to 8/10 at times Short Term Goal (STG) Decrease pain by at least 50% with all usual activities 11/09/23: min progress due to patient overdoing STG Duration 11/20/23 Sandblaster Glass Goal (LTG) Decrease pain by at least 75% with all usual activities LTG Duration 01/04/24 Assessment Summary Assessment Good relief trigger point pain left buttock with self massage using tennis ball. Continue emphasis on not overdoing activity, emphasis on deep breathing for muscle relaxation, inc parasympathetic activation for pain management. Needs further practice Physical Therapy Plan Frequency and Duration Frequency of Treatment 2x/Week Duration of treatment (weeks) 12 Plan of Care Start Date 10/04/23 Plan of Care End Date 01/04/24 Therapeutic Interventions Therapeutic Interventions Home Exercise Program,Manual Therapy,Neuromuscular Re- education,Patient/Caregiver Education,Self-Care/Home Management,Soft Tissue Mobilization,Taping, Therapeutic Activities, Therapeutic Exercises Modalities Electric Stimulation,Hot Packs ,Infrared Therapy Next Visit Focus/Plan Next Note Type Treatment Note Next Visit Plan ASsess response to today's session, home use of TENS. Trial sport cord, continue functional strengthening.
--- NOTE | 2023-12-21 15:38 | PT.OTRE ---
Current Diagnoses Spondylolisthesis, lumbar region (12/21/23) Weakness (12/21/23) Past Medical History (Last Updated 11/29/23 @ 16:39 by Paul Solano MD) Actinic keratosis Ankle pain (~2001) BPH NOS w ur obs/LUTS Carpal tunnel syndrome (~2014) Cervical fusion syndrome Cervical somatic dysfunction Chronic migraine without aura, with status migrainosus Chronic neck and back pain Chronic right shoulder pain Cough Cranial somatic dysfunction Encounter for initial annual wellness visit (AWV) in Medicare patient Erectile dysfunction Fever Fibromyalgia (~2014) Fractures (~1983) GERD (gastroesophageal reflux disease) (~2011) Headache (~1995) Headache, chronic migraine without aura Hearing loss Hemicrania continua Herpes (~1995) History of urinary incontinence (~2019) Hypothyroidism Hypothyroidism (acquired) Lower urinary tract symptoms (LUTS) Lumbar region somatic dysfunction Lung nodule Melanoma (~2009) Migraines (~1995) Pelvic somatic dysfunction Post-void dribbling Removal of staple Rib pain on right side Sacral region somatic dysfunction Scalp laceration Sciatic pain Segmental and somatic dysfunction of abdomen and other regions Segmental and somatic dysfunction of rib cage Shoulder pain (~1999) Skin cancer (~2012) Sleep apnea (~2014) Somatic dysfunction of lower extremity Spondylolisthesis at L4-L5 level Stiffness of finger joint of right hand ZACH (stress urinary incontinence), male Thoracic region somatic dysfunction Tinnitus (~2009) Urethral false passage Vasculogenic erectile dysfunction Surgical History (Last Reviewed 11/29/23 @ 16:37 by Paul Solano MD) Anesthesia History of carpal tunnel surgery History of fusion of cervical spine (~1995) History of fusion of cervical spine History of heart artery stent (~2012) History of hernia repair History of laminectomy (~2003) History of lumbar fusion (~2000) Pyloric stenosis (~194) S/P insertion of spinal cord stimulator S/P lumbar spinal fusion S/P TURP (status post transurethral resection of prostate) Visit Care Team Role Provider Type Eddie Garcia DO Primary Care Provider Physician Specialty: Family Practice Address: [address] [place] [address], [address], [place], [address] Email: [email or web address] David Dewitt DO Family Provider Physician Specialty: [facility] Address: [address] [place] [address], [id number] Email: Jose Carlos Khalil Attending Provider Non-Staff Referring Provider Specialty: Neurosurgery Address: [place], [address] Email: Physical Therapy Re-Evaluation PT-OP-A Visit Information Start: 10/03/23 16:35 Freq: Status: Active Protocol: Document 12/21/23 10:31 [facility] (Rec: 12/21/23 11:17 [facility] [id number]) Out-Patient Physical Therapy Visit Information Visit Information Visit Type Treatment Note Visit Start Time 10:32 Visit Stop Time 11:27 Visit Number 14 Number of PULPWOOD CUTTER Visits 0 Evaluation Information Evaluation Date 10/04/23 Precautions Precautions former R SI fusion PT-OP-B Current Condition Start: 10/03/23 16:35 Freq: Status: Active Protocol: Document 12/21/23 10:31 [facility] (Rec: 12/21/23 11:17 [facility] [id number]) Current Condition History of Current Condition Onset Date 6 weeks ago Current Complaints back pain, ronal leg pain History of Current Condition s/p lumbar spine surgery; 2 stage; cage insertion from anterior, and then L345 fusion second surgery. Had hematuria due to catheter going through urethral wall; will need surgery. Also reports left leg still swollen calf through the foot. Tried Trevor hose, not helpful. Pain level variable depending on Oxycodone and Methocarbomal; takes the edge off, trying to wean off. 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 Wearing back brace, using bone stimulatory 2 hours per day, walking level up to a mile but sometimes can't tolerate. Leg symptoms better, back pain continues at a high level; patient reports sites from robitic surgery. Hasn't yet taken any pain medication today. Tylenol doesn't do much. Still some tingling right leg, heel and foot. Prior history right SI fusion. Prior Treatments and Tests Tried heat, doesn't do much. Hasn't tried ice. Precautions : no walking on hills, no twisting, lifting, bending. Saw surgeon after 2 weeks, then goes back end of October. Future Testing and Treatments Planned as above PT-OP-C Subjective Start: 10/03/23 16:35 Freq: Status: Active Protocol: Document 12/21/23 10:31 [facility] (Rec: 12/21/23 11:17 [facility] [id number]) OP-PT Subjective Patient Comments Patient Comments Pain center L3 raiating to the left side. During the day activity is making it worse and can't stand up straight. Methocarbomal and Hydrocodone does help but he doesn't want to take more than 1 per day. [place] really good after PT until he walked out the door. Is trying to use heat in am and spinal cord stimuylar but neither seem to be helping. Thinking about calling the surgeon PT-OP-G Mobility & Gait Start: 10/03/23 16:35 Freq: Status: Active Protocol: Document 10/04/23 10:29 [facility] (Rec: 10/04/23 13:21 [facility] [id number]) OP Gait Assessment Gait Gait Assistance Required: Independent Assistive Devices Assistive Device None Gait Deviations General Gait Pattern Decreased Stride Length, Decreased Feet Clearance Comments Gait Comments wearing back brace Stair Climbing Evaluation Comments Stair Climbing Comments precaution of no walking on elevation at this time PT-OP-H Neuro Start: 10/03/23 16:35 Freq: Status: Active Protocol: Document 10/04/23 10:29 [facility] (Rec: 10/04/23 13:21 [facility] [id number]) Sensation Evaluation Gross Sensation Gross Sensation WNL PT-OP-J Posture/Palpation/Skin Start: 10/03/23 16:35 Freq: Status: Active Protocol: Document 10/04/23 10:29 [facility] (Rec: 10/04/23 13:21 [facility] [id number]) Posture Evaluation Position Standing L-Spine Posture Flattened Palpation Assessment Location incisioni scar Palpation Findings Soft Tissue Tightness Palpation Details abdomen, lumbar spine, buttocks Skin Assessment Edema Assessment left foot, ankle, lower calf Edema Appearance Puffy PT-OP-K Range of Motion Start: 10/03/23 16:35 Freq: Status: Active Protocol: Document 10/04/23 10:29 [facility] (Rec: 10/04/23 13:21 [facility] [id number]) Lumbar Spine Range of Motion Lumbar Spine Active Comments not tested due to recent surgery Hip Goniometric Range of Motion Hip ROM Limitations Comments mod decrease flexibility HS, quads, calves ronal Knee Goniometric Range of Motion Knee Measured in Degrees ronal Knee ROM WFL Yes Ankle and Foot Goniometric Range of Motion Ankle and Foot Measured in Degrees ronal Ankle/Foot ROM WFL No Dorsiflexion with Knee Flexed 5 Dorsiflexion with Knee Extended 0 PT-OP-L Special Tests Start: 10/03/23 16:35 Freq: Status: Active Protocol: Document 10/04/23 10:29 [facility] (Rec: 10/04/23 13:21 [facility] [id number]) Special Tests Lumbar Spine Special Tests Straight Leg Raise Test Results + HS tightness PT-OP-M Strength Start: 10/03/23 16:35 Freq: Status: Active Protocol: Document 10/04/23 10:29 [facility] (Rec: 10/04/23 13:21 [facility] [id number]) Trunk Strength Trunk Manual Muscle Testing Core Stabilization poor PT-OP-Q Treatments Start: 10/03/23 16:35 Freq: Status: Active Protocol: Document 12/21/23 10:31 [facility] (Rec: 12/21/23 11:17 [facility] [id number]) Cardio Equipment Bicycle (Upright) Duration (Minutes) 8 Resistance 6-8 Seat Position 6 Other cues for long spine, 1.8 miles PT-OP-R Modalities Start: 10/03/23 16:35 Freq: Status: Active Protocol: Document 12/19/23 13:02 [facility] (Rec: 12/19/23 13:50 [facility] [id number]) Electric Stimulation Electric Stimulation ronal l/s Body Location ronal LS and SI Intensity 25 Target/Sweep Sweep Patient Position Sitting Combined With Heat/Cold Hot Pack Comments 90/90 position Hot Pack/Cold Pack Treatment Hot Pack Location left buttock Patient Position Sidelying Patient Tolerance Good Comments after manual, reports dec pain and stiffness PT-OP-T Assessment and Plan Start: 10/03/23 16:35 Freq: Status: Active Protocol: Document 12/21/23 10:31 [facility] (Rec: 12/21/23 11:17 [facility] [id number]) Physical Therapy Assessment Impairments Impairments Activity Tolerance,Pain, Posture,Strength Goals 3 Impairment gait Impairment patient unable to take walks for activity and exercise as previously 2-3 mi Short Term Goal (STG) Patient will be able to walk at least 1 mile without an increase in pain 11/20/23: reports inc pain after walkng 3/4 mile 7/31/24: limited to 1/2 mile STG Duration 11/20/23 Half-Way Goal (LTG) Patient will be able to walk at least 2 miles including incline without an increase in pain LTG Duration 01/04/24 2 Impairment activity tolerance Impairment Oswestry score 28% Short Term Goal (STG) Decrease Oswestry to no greater than 30% as measure of improved function and activity tolerance 11/09/23: min progress largely due to patient overdoing activity 12/21/23: increased to 42%, worse STG Duration 11/20/23 [employer] Agent Goal (LTG) Decrease Oswestry to no greater than 15% as measure of imroved function and activity tolerance 12/21/23: LTG Duration 01/04/24 1 Impairment lumbar spine pain as high as 8 /10 Impairment LBP and ronal LE pain /, spikes to 8/10 at times Short Term Goal (STG) Decrease pain by at least 50% with all usual activities 11/09/23: min progress due to patient overdoing at home 12/21/23: no significant change STG Duration 11/20/23 Half-Way Goal (LTG) Decrease pain by at least 75% with all usual activities LTG Duration 01/04/24 Assessment Summary Assessment Patient pain level high, concerned min improvement, has had 14 PT visits. [place] good very briefly after PT last session, pain returned as he walked out to his car. Feels catching in his spine, sharp pains with movement at times, otherwise strong achy pain. Not wanting to take medication but is finding Methocarbomal and Hydrocodone helpful, trying not to take more than 1 per day. He has overdone activity at home frequently since surgery including lifting, trying to modify his activity as instructed by PT. Remains very stiff, poor tolerance to ROM ex. Improved body mechanics with education . Feel follow-up with physician indicated since minimal progress with PT, persistent high pain level. Physical Therapy Plan Frequency and Duration Frequency of Treatment 2x/Week Duration of treatment (weeks) 8 Plan of Care Start Date 12/21/23 Plan of Care End Date 02/20/24 Therapeutic Interventions Therapeutic Interventions Home Exercise Program,Manual Therapy,Neuromuscular Re- education,Patient/Caregiver Education,Self-Care/Home Management,Soft Tissue Mobilization,Taping, Therapeutic Activities, Therapeutic Exercises Modalities Electric Stimulation,Hot Packs ,Infrared Therapy Next Visit Focus/Plan Next Note Type Treatment Note Next Visit Plan Recommend patient follow up with physician. Continue pending physician recommendations. Assess response to manual treatment QL and paraspinals, prone MH and IFES. Continue gentle core strengthening and stabilization, flexibility as tolerated. Consider KT tape paraspinals, QL. Continue body mechanics education for functional activities.
--- NOTE | 2023-12-21 15:39 | PT.OPPOC ---
Physical, Occupational & Speech Therapy At [facility] Current Diagnoses Spondylolisthesis, lumbar region (12/21/23) Weakness (12/21/23) Visit Care Team Role Provider Type Eddie Gacria DO Primary Care Provider Physician Specialty: Family Practice Address: [address] [place] [address], [address], [place], [address] Email: [email or web address] David Dewitt DO Family Provider Physician Specialty: Family Practice Address: [address] [place] [address], [id number] Email: Jose Carlos Khalil Attending Provider Non-Staff Referring Provider Specialty: Neurosurgery Address: [address] [place] [address], [id number] Email: Plan Of Care PT-OP-B Current Condition Start: 10/03/23 16:35 Freq: Status: Active Protocol: Document 12/21/23 10:31 [facility] (Rec: 12/21/23 11:17 [facility] [id number]) Current Condition History of Current Condition Onset Date 6 weeks ago Current Complaints back pain, ronal leg pain History of Current Condition s/p lumbar spine surgery; 2 stage; cage insertion from anterior, and then L345 fusion second surgery. Had hematuria due to catheter going through urethral wall; will need surgery. Also reports left leg still swollen calf through the foot. Tried Trevor hose, not helpful. Pain level variable depending on Oxycodone and Methocarbomal; takes the edge off, trying to wean off. 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 Wearing back brace, using bone stimulatory 2 hours per day, walking level up to a mile but sometimes can't tolerate. Leg symptoms better, back pain continues at a high level; patient reports sites from robitic surgery. Hasn't yet taken any pain medication today. Tylenol doesn't do much. Still some tingling right leg, heel and foot. Prior history right SI fusion. Prior Treatments and Tests Tried heat, doesn't do much. Hasn't tried ice. Precautions : no walking on hills, no twisting, lifting, bending. Saw surgeon after 2 weeks, then goes back end of October. Future Testing and Treatments Planned as above PT-OP-T Assessment and Plan Start: 10/03/23 16:35 Freq: Status: Active Protocol: Document 12/21/23 10:31 [facility] (Rec: 12/21/23 11:17 [facility] [id number]) Physical Therapy Assessment Impairments Impairments Activity Tolerance,Pain, Posture,Strength Goals 3 Impairment gait Impairment patient unable to take walks for activity and exercise as previously 2-3 mi Short Term Goal (STG) Patient will be able to walk at least 1 mile without an increase in pain 11/20/23: reports inc pain after walkng 3/4 mile 12/21/23: limited to 1/2 mile STG Duration 11/20/23 Homemaker Companion Goal (LTG) Patient will be able to walk at least 2 miles including incline without an increase in pain LTG Duration 01/04/24 2 Impairment activity tolerance Impairment Oswestry score 28% Short Term Goal (STG) Decrease Oswestry to no greater than 30% as measure of improved function and activity tolerance 11/09/23: min progress largely due to patient overdoing activity 12/21/23: increased to 42%, worse STG Duration 11/20/23 Snf Goal (LTG) Decrease Oswestry to no greater than 15% as measure of imroved function and activity tolerance 12/21/23: LTG Duration 01/04/24 1 Impairment lumbar spine pain as high as 8 /10 Impairment LBP and ronal LE pain 10/30, spikes to 8/10 at times Short Term Goal (STG) Decrease pain by at least 50% with all usual activities 11/09/23: min progress due to patient overdoing at home 12/21/23: no significant change STG Duration 11/20/23 Homemaker Companion Goal (LTG) Decrease pain by at least 75% with all usual activities LTG Duration 01/04/24 Assessment Summary Assessment Patient pain level high, concerned min improvement, has had 14 PT visits. Reeds good very briefly after PT last session, pain returned as he walked out to his car. Feels catching in his spine, sharp pains with movement at times, otherwise strong achy pain. Not wanting to take medication but is finding Methocarbomal and Hydrocodone helpful, trying not to take more than 1 per day. He has overdone activity at home frequently since surgery including lifting, trying to modify his activity as instructed by PT. Remains very stiff, poor tolerance to ROM ex. Improved body mechanics with education . Feel follow-up with physician indicated since minimal progress with PT, persistent high pain level. Physical Therapy Plan Frequency and Duration Frequency of Treatment 2x/Week Duration of treatment (weeks) 8 Plan of Care Start Date 12/21/23 Plan of Care End Date 02/20/24 Therapeutic Interventions Therapeutic Interventions Home Exercise Program,Manual Therapy,Neuromuscular Re- education,Patient/Caregiver Education,Self-Care/Home Management,Soft Tissue Mobilization,Taping, Therapeutic Activities, Therapeutic Exercises Modalities Electric Stimulation,Hot Packs ,Infrared Therapy Next Visit Focus/Plan Next Note Type Treatment Note Next Visit Plan Recommend patient follow up with physician. Continue pending physician recommendations. Assess response to manual treatment QL and paraspinals, prone MH and IFES. Continue gentle core strengthening and stabilization, flexibility as tolerated. Consider KT tape paraspinals, QL. Continue body mechanics education for functional activities. Plan of Care Dates Plan of Care Start Date 12/21/23 Plan of Care End Date 02/20/24 Electronically Signed by: Juli Cotto, PT 12/21/23 1835 If you are in agreement with this Plan of Care, please return a signed and dated copy. I have reviewed this Plan of Care and certify that the skilled therapy services above are required to meet the patient?s needs. Physician Signature Date Printed Name and Credentials Clinical Instructor Signature Printed Name and Credentials
--- NOTE | 2023-12-26 13:43 | PT.OTN ---
Current Diagnoses Spondylolisthesis, lumbar region (12/26/23) Weakness (12/26/23) Physical Therapy Treatment Note PT-OP-A Visit Information Start: 10/03/23 16:35 Freq: Status: Active Protocol: Document 12/26/23 10:32 [facility] (Rec: 12/26/23 11:20 [facility] [id number]) Out-Patient Physical Therapy Visit Information Visit Information Visit Type Treatment Note Visit Start Time 10:32 Visit Stop Time 11:17 Visit Number 15 Evaluation Information Evaluation Date 10/04/23 Precautions Precautions former R SI fusion PT-OP-B Current Condition Start: 10/03/23 16:35 Freq: Status: Active Protocol: Document 12/26/23 10:32 [facility] (Rec: 12/26/23 11:20 [facility] [id number]) Current Condition History of Current Condition Onset Date 6 weeks ago Current Complaints back pain, ronal leg pain History of Current Condition s/p lumbar spine surgery; 2 stage; cage insertion from anterior, and then L345 fusion second surgery. Had hematuria due to catheter going through urethral wall; will need surgery. Also reports left leg still swollen calf through the foot. Tried Trevor hose, not helpful. Pain level variable depending on Oxycodone and Methocarbomal; takes the edge off, trying to wean off. 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 Wearing back brace, using bone stimulatory 2 hours per day, walking level up to a mile but sometimes can't tolerate. Leg symptoms better, back pain continues at a high level; patient reports sites from robitic surgery. Hasn't yet taken any pain medication today. Tylenol doesn't do much. Still some tingling right leg, heel and foot. Prior history right SI fusion. Prior Treatments and Tests Tried heat, doesn't do much. Hasn't tried ice. Precautions : no walking on hills, no twisting, lifting, bending. Saw surgeon after 2 weeks, then goes back end of October. Future Testing and Treatments Planned as above PT-OP-C Subjective Start: 10/03/23 16:35 Freq: Status: Active Protocol: Document 12/26/23 10:32 [facility] (Rec: 12/26/23 11:20 [facility] [id number]) OP-PT Subjective Patient Comments Patient Comments Did ok with walking Tuesday and Tuesday. Something set it off on Tuesday. Bad day today, bending over sets the pain off. Wore his brace as a reminder over the weekend. When he got up this am pain center lumbar spine and to the left, slept mostly on left side last night . While on heat this am did some isometric exercises, finally took Hydrocodone and Methocarbomal and eventually was able to stand up and walk around until he tied his shoes pain increased and has been vbad since then. Again better briefly after PT I was able to make it out to the truck after PT. PT-OP-G Mobility & Gait Start: 10/03/23 16:35 Freq: Status: Active Protocol: Document 10/04/23 10:29 [facility] (Rec: 10/04/23 13:21 [facility] [id number]) OP Gait Assessment Gait Gait Assistance Required: Independent Assistive Devices Assistive Device None Gait Deviations General Gait Pattern Decreased Stride Length, Decreased Feet Clearance Comments Gait Comments wearing back brace Stair Climbing Evaluation Comments Stair Climbing Comments precaution of no walking on elevation at this time PT-OP-H Neuro Start: 10/03/23 16:35 Freq: Status: Active Protocol: Document 10/04/23 10:29 [facility] (Rec: 10/04/23 13:21 [facility] [id number]) Sensation Evaluation Gross Sensation Gross Sensation WNL PT-OP-J Posture/Palpation/Skin Start: 10/03/23 16:35 Freq: Status: Active Protocol: Document 10/04/23 10:29 [facility] (Rec: 10/04/23 13:21 [facility] [id number]) Posture Evaluation Position Standing L-Spine Posture Flattened Palpation Assessment Location incisioni scar Palpation Findings Soft Tissue Tightness Palpation Details abdomen, lumbar spine, buttocks Skin Assessment Edema Assessment left foot, ankle, lower calf Edema Appearance Puffy PT-OP-K Range of Motion Start: 10/03/23 16:35 Freq: Status: Active Protocol: Document 10/04/23 10:29 [facility] (Rec: 10/04/23 13:21 [facility] [id number]) Lumbar Spine Range of Motion Lumbar Spine Active Comments not tested due to recent surgery Hip Goniometric Range of Motion Hip ROM Limitations Comments mod decrease flexibility HS, quads, calves ronal Knee Goniometric Range of Motion Knee ronal Knee ROM WFL Yes Ankle and Foot Goniometric Range of Motion Ankle and Foot ronal Ankle/Foot ROM WFL No Dorsiflexion with Knee Flexed 5 Dorsiflexion with Knee Extended 0 PT-OP-L Special Tests Start: 10/03/23 16:35 Freq: Status: Active Protocol: Document 10/04/23 10:29 [facility] (Rec: 10/04/23 13:21 [facility] [id number]) Special Tests Lumbar Spine Special Tests Straight Leg Raise Test Results + HS tightness PT-OP-M Strength Start: 10/03/23 16:35 Freq: Status: Active Protocol: Document 10/04/23 10:29 [facility] (Rec: 10/04/23 13:21 [facility] [id number]) Trunk Strength Trunk Manual Muscle Testing Core Stabilization poor PT-OP-Q Treatments Start: 10/03/23 16:35 Freq: Status: Active Protocol: Document 12/26/23 10:32 [facility] (Rec: 12/26/23 11:20 [facility] [id number]) Cardio Equipment Bicycle (Upright) Duration (Minutes) 9 Resistance 6-8 Seat Position 6 Other cues for long spine, 1.8 miles Therapeutic Exercises Supine Exercises SKTC Reps/Minutes 1x30 Comments manual, cues for painfree LTR Reps/Minutes 10x Comments cues for small movement, painfree posture press Reps/Minutes 10X Comments hooklying hooklying ball press Supine Exercise Name ronal and unil/diagonal Reps/Minutes 10x bug Reps/Minutes 10x Comments cues for very small movement, painfree Supine march Reps/Minutes 10x Comments cues for core activation, stable pelvis bridge Side bilateral Reps/Minutes 10x Comments small lift, emphasis core and gluteal activation leg lowering Supine Exercise Name supine 90/90, feet off table Comments cues for small movement, painfree glut set Side bilateral Reps/Minutes 10x Sidelying Exercises reverse clamshell Comments resume next session clam Comments resume next session hip abd Comments resume next session, small movement, painfree Self-Care/Home Management Treatment Education Patient Education Body Mechanics,Home Exercise Program,Pain Management, Posture PT-OP-R Modalities Start: 10/03/23 16:35 Freq: Status: Active Protocol: Document 12/19/23 13:02 [facility] (Rec: 12/19/23 13:50 [facility] [id number]) Electric Stimulation Electric Stimulation ronal l/s Body Location ronal LS and SI Intensity 25 Target/Sweep Sweep Patient Position Sitting Combined With Heat/Cold Hot Pack Comments 90/90 position Hot Pack/Cold Pack Treatment Hot Pack Location left buttock Patient Position Sidelying Patient Tolerance Good Comments after manual, reports dec pain and stiffness PT-OP-T Assessment and Plan Start: 10/03/23 16:35 Freq: Status: Active Protocol: Document 12/26/23 10:32 [facility] (Rec: 12/26/23 11:20 [facility] [id number]) Physical Therapy Assessment Impairments Impairments Activity Tolerance,Pain, Posture,Strength Goals 3 Impairment gait Impairment patient unable to take walks for activity and exercise as previously 2-3 mi Short Term Goal (STG) Patient will be able to walk at least 1 mile without an increase in pain 11/20/23: reports inc pain after walkng 3/4 mile 12/21/23: limited to 1/2 mile STG Duration 11/20/23 Prison Goal (LTG) Patient will be able to walk at least 2 miles including incline without an increase in pain LTG Duration 01/04/24 2 Impairment activity tolerance Impairment Oswestry score 28% Short Term Goal (STG) Decrease Oswestry to no greater than 30% as measure of improved function and activity tolerance 11/09/23: min progress largely due to patient overdoing activity 12/21/23: increased to 42%, worse STG Duration 11/20/23 Prison Goal (LTG) Decrease Oswestry to no greater than 15% as measure of imroved function and activity tolerance 12/21/23: LTG Duration 01/04/24 1 Impairment lumbar spine pain as high as 8 /10 Impairment LBP and ronal LE pain /10, spikes to 8/10 at times Short Term Goal (STG) Decrease pain by at least 50% with all usual activities 11/09/23: min progress due to patient overdoing at home 12/21/23: no significant change STG Duration 11/20/23 Director Title Goal (LTG) Decrease pain by at least 75% with all usual activities LTG Duration 01/04/24 Assessment Summary Assessment Patient initially very high pain level, exacerbated yesterday unknown reason. Emphasis today supine core stab. Also reviewed activities at home and what may be aggravating his back and hip; states he puts his shoes on in 1/2 kneeling position; advised to try using donning aids for socks and shoes, consider elastic shoelaces or slip on shoes at this time. Tolerated isometric and gentle progression of core stab ex well. Added posture press supine, ball press supine, LTR all with cues for pain-free ROM and intensity. Physical Therapy Plan Frequency and Duration Frequency of Treatment 2x/Week Duration of treatment (weeks) 8 Plan of Care Start Date 12/21/23 Plan of Care End Date 02/20/24 Therapeutic Interventions Therapeutic Interventions Home Exercise Program,Manual Therapy,Neuromuscular Re- education,Patient/Caregiver Education,Self-Care/Home Management,Soft Tissue Mobilization,Taping, Therapeutic Activities, Therapeutic Exercises Modalities Electric Stimulation,Hot Packs ,Infrared Therapy Next Visit Focus/Plan Next Note Type Treatment Note Next Visit Plan ASsess response to today's session. Continue manual treatment, review updated HEP. Continue body mechanics education for functional activities and consider KT tape paraspinals and QL.
--- NOTE | 2023-12-28 13:28 | PT.OTN ---
Current Diagnoses Spondylolisthesis, lumbar region (12/28/23) Weakness (12/28/23) Physical Therapy Treatment Note PT-OP-A Visit Information Start: 10/03/23 16:35 Freq: Status: Active Protocol: Document 12/28/23 10:30 SAK (Rec: 12/28/23 11:20 [facility] [id number]) Out-Patient Physical Therapy Visit Information Visit Information Visit Type Treatment Note Visit Start Time 10:30 Visit Stop Time 11:15 Visit Number [id number] PT-OP-B Current Condition Start: 10/03/23 16:35 Freq: Status: Active Protocol: Document 12/28/23 10:30 SAK (Rec: 12/28/23 11:20 [facility] [id number]) Current Condition History of Current Condition Onset Date 6 weeks ago Current Complaints back pain, ronal leg pain History of Current Condition s/p lumbar spine surgery; 2 stage; cage insertion from anterior, and then L345 fusion second surgery. Had hematuria due to catheter going through urethral wall; will need surgery. Also reports left leg still swollen calf through the foot. Tried Trevor hose, not helpful. Pain level variable depending on Oxycodone and Methocarbomal; takes the edge off, trying to wean off. 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 Wearing back brace, using bone stimulatory 2 hours per day, walking level up to a mile but sometimes can't tolerate. Leg symptoms better, back pain continues at a high level; patient reports sites from robitic surgery. Hasn't yet taken any pain medication today. Tylenol doesn't do much. Still some tingling right leg, heel and foot. Prior history right SI fusion. Prior Treatments and Tests Tried heat, doesn't do much. Hasn't tried ice. Precautions : no walking on hills, no twisting, lifting, bending. Saw surgeon after 2 weeks, then goes back end of October. Future Testing and Treatments Planned as above PT-OP-C Subjective Start: 10/03/23 16:35 Freq: Status: Active Protocol: Document 12/28/23 10:30 SAK (Rec: 12/28/23 11:20 [facility] [id number]) OP-PT Subjective Patient Comments Patient Comments Better after PT until got out of car. Did ok yesterday, pain inconsistent. Pain bad again today, frequent feeling of catching in his back. 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 Has been playing phone tag with Dr. Hardy, plans to stop by today. pain lumbar spin, left lateral hip PT-OP-G Mobility & Gait Start: 10/03/23 16:35 Freq: Status: Active Protocol: Document 10/04/23 10:29 SAK (Rec: 10/04/23 13:21 [facility] [id number]) OP Gait Assessment Gait Gait Assistance Required: Independent Assistive Devices Assistive Device None Gait Deviations General Gait Pattern Decreased Stride Length, Decreased Feet Clearance Comments Gait Comments wearing back brace Stair Climbing Evaluation Comments Stair Climbing Comments precaution of no walking on elevation at this time PT-OP-H Neuro Start: 10/03/23 16:35 Freq: Status: Active Protocol: Document 10/04/23 10:29 [facility] (Rec: 10/04/23 13:21 [facility] [id number]) Sensation Evaluation Gross Sensation Gross Sensation WNL PT-OP-J Posture/Palpation/Skin Start: 10/03/23 16:35 Freq: Status: Active Protocol: Document 10/04/23 10:29 [facility] (Rec: 10/04/23 13:21 [facility] [id number]) Posture Evaluation Position Standing L-Spine Posture Flattened Palpation Assessment Location incisioni scar Palpation Findings Soft Tissue Tightness Palpation Details abdomen, lumbar spine, buttocks Skin Assessment Edema Assessment left foot, ankle, lower calf Edema Appearance Puffy PT-OP-K Range of Motion Start: 10/03/23 16:35 Freq: Status: Active Protocol: Document 10/04/23 10:29 [facility] (Rec: 10/04/23 13:21 [facility] [id number]) Lumbar Spine Range of Motion Lumbar Spine Active Comments not tested due to recent surgery Hip Goniometric Range of Motion Hip ROM Limitations Comments mod decrease flexibility HS, quads, calves ronal Knee Goniometric Range of Motion Knee ronal Knee ROM WFL Yes Ankle and Foot Goniometric Range of Motion Ankle and Foot ronal Ankle/Foot ROM WFL No Dorsiflexion with Knee Flexed 5 Dorsiflexion with Knee Extended 0 PT-OP-L Special Tests Start: 10/03/23 16:35 Freq: Status: Active Protocol: Document 10/04/23 10:29 [facility] (Rec: 10/04/23 13:21 [facility] [id number]) Special Tests Lumbar Spine Special Tests Straight Leg Raise Test Results + HS tightness PT-OP-M Strength Start: 10/03/23 16:35 Freq: Status: Active Protocol: Document 10/04/23 10:29 [facility] (Rec: 10/04/23 13:21 [facility] [id number]) Trunk Strength Trunk Manual Muscle Testing Core Stabilization poor PT-OP-Q Treatments Start: 10/03/23 16:35 Freq: Status: Active Protocol: Document 12/28/23 10:30 [facility] (Rec: 12/28/23 11:20 [facility] [id number]) Cardio Equipment Bicycle (Upright) Duration (Minutes) 6 Resistance 7-10 Seat Position 6 Other inc back irritation, dec resistance didn't help Therapeutic Exercises Supine Exercises LTR Reps/Minutes 10x Comments cues for small movement, painfree posture press Reps/Minutes 10X Comments hooklying hooklying ball press Supine Exercise Name ronal and unil/diagonal Reps/Minutes 10x Comments painful today bug Reps/Minutes 10x Comments cues for very small movement, painfree Manual Therapy Treatment Soft Tissue Mobilization glut med Mobilization Type Sustained Pressure Intensity/Depth Moderate right quadratus Body Location quadratus lumborum bilateral Mobilization Type Rolling,Sustained Pressure Intensity/Depth Moderate Body Position Sidelying lumbar paraspinals Body Location bilateral Mobilization Type Myofascial Release,Strumming Intensity/Depth Moderate Body Position Sidelying Comments superficial to moderate Taping SI to T10 paraspinals Treatment Focus decreased muscle tension, pain Type of Tape KT Skin Inspection intact Comments I strips ronal, paper off tension L2-3 Treatment Focus pain reduction Type of Tape KT Skin Inspection intact Comments X pattern centered over L2-3, 75% stretch Self-Care/Home Management Treatment Education Other Education urged patient to wear back brace with any physical chores house and yard, not push too hard as he is easily exacerbating his pain Instructed to remove tape no longer than 5 days after today 's application, remove sooner if pain inc or skin irritated. PT-OP-R Modalities Start: 10/03/23 16:35 Freq: Status: Active Protocol: Document 12/19/23 13:02 [facility] (Rec: 12/19/23 13:50 [facility] [id number]) Electric Stimulation Electric Stimulation ronal l/s Body Location ronal LS and SI Intensity 25 Target/Sweep Sweep Patient Position Sitting Combined With Heat/Cold Hot Pack Comments 90/90 position Hot Pack/Cold Pack Treatment Hot Pack Location left buttock Patient Position Sidelying Patient Tolerance Good Comments after manual, reports dec pain and stiffness PT-OP-T Assessment and Plan Start: 10/03/23 16:35 Freq: Status: Active Protocol: Document 12/28/23 10:30 [facility] (Rec: 12/28/23 11:20 [facility] [id number]) Physical Therapy Assessment Impairments Impairments Activity Tolerance,Pain, Posture,Strength Goals 3 Impairment gait Impairment patient unable to take walks for activity and exercise as previously 2-3 mi Short Term Goal (STG) Patient will be able to walk at least 1 mile without an increase in pain 11/20/23: reports inc pain after walkng 3/4 mile 12/21/23: limited to 1/2 mile STG Duration 11/20/23 Fpc Goal (LTG) Patient will be able to walk at least 2 miles including incline without an increase in pain LTG Duration 01/04/24 2 Impairment activity tolerance Impairment Oswestry score 28% Short Term Goal (STG) Decrease Oswestry to no greater than 30% as measure of improved function and activity tolerance 11/09/23: min progress largely due to patient overdoing activity 12/21/23: increased to 42%, worse STG Duration 11/20/23 Poultry Husbandman Goal (LTG) Decrease Oswestry to no greater than 15% as measure of imroved function and activity tolerance 12/21/23: LTG Duration 01/04/24 1 Impairment lumbar spine pain as high as 8 /10 Impairment LBP and ronal LE pain /10, spikes to 8/10 at times Short Term Goal (STG) Decrease pain by at least 50% with all usual activities 11/09/23: min progress due to patient overdoing at home 12/21/23: no significant change STG Duration 11/20/23 Fpc Goal (LTG) Decrease pain by at least 75% with all usual activities LTG Duration 01/04/24 Assessment Summary Assessment Patient symptoms remain highly irritable with low activity tolerance, though patient did report working on repairing fence yesterday including hammering. Worst symptoms just proximal to fusion. Today a couple times just starting out walking he hesitated due to sharp pain mid lumbar spine,(reports catching pain), also c/o pain left post/lat him with palpable trigger point glut med. QL tight ronal left greater than right. Patient attempting to contact surgeon for follow-up appointment due to frustration with slow progress. Physical Therapy Plan Frequency and Duration Frequency of Treatment 2x/Week Duration of treatment (weeks) 8 Plan of Care Start Date 12/21/23 Plan of Care End Date 02/20/24 Therapeutic Interventions Therapeutic Interventions Home Exercise Program,Manual Therapy,Neuromuscular Re- education,Patient/Caregiver Education,Self-Care/Home Management,Soft Tissue Mobilization,Taping, Therapeutic Activities, Therapeutic Exercises Modalities Electric Stimulation,Hot Packs ,Infrared Therapy Next Visit Focus/Plan Next Note Type Treatment Note Next Visit Plan Continue PT, further emphasis core stab pending any further recommendations from physician . Evaluate response today's manual treatment, KT tape trial.
--- NOTE | 2024-01-03 13:08 | PT.OTN ---
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 Had hematuria due to catheter going through urethral wall; will need surgery. Also reports left leg still swollen calf through the foot. Tried Trevor hose, not helpful. Pain level variable depending on Oxycodone and Methocarbomal; takes the edge off, trying to wean off. 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 Wearing back brace, using bone stimulatory 2 hours per day, walking level up to a mile but sometimes can't tolerate. Leg symptoms better, back pain continues at a high level; patient reports sites from robitic surgery. Hasn't yet taken any pain medication today. Tylenol doesn't do much. Still some tingling right leg, heel and foot. Prior history right SI fusion. Prior Treatments and Tests Tried heat, doesn't do much. Hasn't tried ice. Precautions : no walking on hills, no twisting, lifting, bending. Saw surgeon after 2 weeks, then goes back end of October. Future Testing and Treatments Planned as above PT-OP-C Subjective Start: 10/03/23 16:35 Freq: Status: Active Protocol: Document 01/03/24 10:32 AB (Rec: 01/03/24 13:07 AB [id number]) OP-PT Subjective Patient Comments Patient Comments Patient reports the tape was phenomonal, he could do things with less pain, lots of lifting, twisting, bending ie things he shouldn't do per patient. Patient rates pain 5/ 10. PT-OP-G Mobility & Gait Start: 10/03/23 16:35 Freq: Status: Active Protocol: Document 10/04/23 10:29 [facility] (Rec: 10/04/23 13:21 [facility] [id number]) OP Gait Assessment Gait Gait Assistance Required: Independent Assistive Devices Assistive Device None Gait Deviations General Gait Pattern Decreased Stride Length, Decreased Feet Clearance Comments Gait Comments wearing back brace Stair Climbing Evaluation Comments Stair Climbing Comments precaution of no walking on elevation at this time PT-OP-H Neuro Start: 10/03/23 16:35 Freq: Status: Active Protocol: Document 10/04/23 10:29 [facility] (Rec: 10/04/23 13:21 [facility] [id number]) Sensation Evaluation Gross Sensation Gross Sensation WNL PT-OP-J Posture/Palpation/Skin Start: 10/03/23 16:35 Freq: Status: Active Protocol: Document 10/04/23 10:29 [facility] (Rec: 10/04/23 13:21 [facility] [id number]) Posture Evaluation Position Standing L-Spine Posture Flattened Palpation Assessment Location incisioni scar Palpation Findings Soft Tissue Tightness Palpation Details abdomen, lumbar spine, buttocks Skin Assessment Edema Assessment left foot, ankle, lower calf Edema Appearance Puffy PT-OP-K Range of Motion Start: 10/03/23 16:35 Freq: Status: Active Protocol: Document 10/04/23 10:29 [facility] (Rec: 10/04/23 13:21 [facility] [id number]) Lumbar Spine Range of Motion Lumbar Spine Active Comments not tested due to recent surgery Hip Goniometric Range of Motion Hip ROM Limitations Comments mod decrease flexibility HS, quads, calves ronal Knee Goniometric Range of Motion Knee ronal Knee ROM WFL Yes Ankle and Foot Goniometric Range of Motion Ankle and Foot ronal Ankle/Foot ROM WFL No Dorsiflexion with Knee Flexed 5 Dorsiflexion with Knee Extended 0 PT-OP-L Special Tests Start: 10/03/23 16:35 Freq: Status: Active Protocol: Document 10/04/23 10:29 [facility] (Rec: 10/04/23 13:21 [facility] [id number]) Special Tests Lumbar Spine Special Tests Straight Leg Raise Test Results + HS tightness PT-OP-M Strength Start: 10/03/23 16:35 Freq: Status: Active Protocol: Document 10/04/23 10:29 SAK (Rec: 10/04/23 13:21 SAK [id number]) Trunk Strength Trunk Manual Muscle Testing Core Stabilization poor PT-OP-Q Treatments Start: 10/03/23 16:35 Freq: Status: Active Protocol: Document 01/03/24 10:32 AB (Rec: 01/03/24 13:07 AB [id number]) Therapeutic Exercises Supine Exercises hooklying ball press Supine Exercise Name ronal and unil/diagonal Reps/Minutes 10x Comments painful today figure 4 stretch Side bilateral Reps/Minutes 60 X 3 piriformis stretch Side bilateral Reps/Minutes 60 seconds X 3 Sitting Exercises seated hip abd with band Side bilateral Resistance level one light blue band Reps/Minutes one minute X 1 Comments verbal cues Manual Therapy Treatment Soft Tissue Mobilization lumbar paraspinals Body Location bilateral Mobilization Type Myofascial Release,Strumming Intensity/Depth Moderate Body Position Sidelying Comments superficial to moderate Taping SI to T10 paraspinals Treatment Focus decreased muscle tension, pain Type of Tape KT Skin Inspection intact Comments I strips ronal, paper off tension L2-3 Treatment Focus pain reduction Type of Tape KT Skin Inspection intact Comments X pattern centered over L2-3, and X over T 12 75% stretch PT-OP-R Modalities Start: 10/03/23 16:35 Freq: Status: Active Protocol: Document 12/19/23 13:02 [facility] (Rec: 12/19/23 13:50 [facility] [id number]) Electric Stimulation Electric Stimulation ronal l/s Body Location ronal LS and SI Intensity 25 Target/Sweep Sweep Patient Position Sitting Combined With Heat/Cold Hot Pack Comments 90/90 position Hot Pack/Cold Pack Treatment Hot Pack Location left buttock Patient Position Sidelying Patient Tolerance Good Comments after manual, reports dec pain and stiffness PT-OP-T Assessment and Plan Start: 10/03/23 16:35 Freq: Status: Active Protocol: Document 01/03/24 10:32 AB (Rec: 01/03/24 13:07 AB [id number]) Physical Therapy Assessment Goals 3 Impairment gait Impairment patient unable to take walks for activity and exercise as previously 2-3 mi Short Term Goal (STG) Patient will be able to walk at least 1 mile without an increase in pain 11/20/23: reports inc pain after walkng 3/4 mile 12/21/23: limited to 1/2 mile STG Duration 11/20/23 Halfway Goal (LTG) Patient will be able to walk at least 2 miles including incline without an increase in pain LTG Duration 01/04/24 2 Impairment activity tolerance Impairment Oswestry score 28% Short Term Goal (STG) Decrease Oswestry to no greater than 30% as measure of improved function and activity tolerance 11/09/23: min progress largely due to patient overdoing activity 12/21/23: increased to 42%, worse STG Duration 11/20/23 Halfway Goal (LTG) Decrease Oswestry to no greater than 15% as measure of imroved function and activity tolerance 12/21/23: LTG Duration 01/04/24 1 Impairment lumbar spine pain as high as 8 /10 Impairment LBP and ronal LE pain /10, spikes to 8/10 at times Short Term Goal (STG) Decrease pain by at least 50% with all usual activities 11/09/23: min progress due to patient overdoing at home 12/21/23: no significant change STG Duration 11/20/23 Oxygen Plant Operator Goal (LTG) Decrease pain by at least 75% with all usual activities LTG Duration 01/04/24 Assessment Summary Assessment Patient reports back feels better end of session. Patient into session with report of good kalpana to Kinesiotaping, able to do more with less pain . Physical Therapy Plan Frequency and Duration Frequency of Treatment 2x/Week Duration of treatment (weeks) 8 Plan of Care Start Date 12/21/23 Plan of Care End Date 02/20/24 Next Visit Focus/Plan Next Note Type Treatment Note Next Visit Plan Continue PT, further emphasis core stab pending any further recommendations from physician . Evaluate response today's manual treatment, KT tape trial.
--- NOTE | 2024-01-05 12:19 | PT.OTN ---
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 Had hematuria due to catheter going through urethral wall; will need surgery. Also reports left leg still swollen calf through the foot. Tried Trevor hose, not helpful. Pain level variable depending on Oxycodone and Methocarbomal; takes the edge off, trying to wean off. 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 Wearing back brace, using bone stimulatory 2 hours per day, walking level up to a mile but sometimes can't tolerate. Leg symptoms better, back pain continues at a high level; patient reports sites from robitic surgery. Hasn't yet taken any pain medication today. Tylenol doesn't do much. Still some tingling right leg, heel and foot. Prior history right SI fusion. Prior Treatments and Tests Tried heat, doesn't do much. Hasn't tried ice. Precautions : no walking on hills, no twisting, lifting, bending. Saw surgeon after 2 weeks, then goes back end of October. Future Testing and Treatments Planned as above PT-OP-C Subjective Start: 10/03/23 16:35 Freq: Status: Active Protocol: Document 01/05/24 10:11 AB (Rec: 01/05/24 12:19 AB [id number]) OP-PT Subjective Patient Comments Patient Comments Patient reports the tape is working, but isn't working as good this time. Patient reports walking about an hour with inclines with increased soreness post. PT-OP-G Mobility & Gait Start: 10/03/23 16:35 Freq: Status: Active Protocol: Document 10/04/23 10:29 [facility] (Rec: 10/04/23 13:21 [facility] [id number]) OP Gait Assessment Gait Gait Assistance Required: Independent Assistive Devices Assistive Device None Gait Deviations General Gait Pattern Decreased Stride Length, Decreased Feet Clearance Comments Gait Comments wearing back brace Stair Climbing Evaluation Comments Stair Climbing Comments precaution of no walking on elevation at this time PT-OP-H Neuro Start: 10/03/23 16:35 Freq: Status: Active Protocol: Document 10/04/23 10:29 [facility] (Rec: 10/04/23 13:21 [facility] [id number]) Sensation Evaluation Gross Sensation Gross Sensation WNL PT-OP-J Posture/Palpation/Skin Start: 10/03/23 16:35 Freq: Status: Active Protocol: Document 10/04/23 10:29 [facility] (Rec: 10/04/23 13:21 [facility] [id number]) Posture Evaluation Position Standing L-Spine Posture Flattened Palpation Assessment Location incisioni scar Palpation Findings Soft Tissue Tightness Palpation Details abdomen, lumbar spine, buttocks Skin Assessment Edema Assessment left foot, ankle, lower calf Edema Appearance Puffy PT-OP-K Range of Motion Start: 10/03/23 16:35 Freq: Status: Active Protocol: Document 10/04/23 10:29 [facility] (Rec: 10/04/23 13:21 [facility] [id number]) Lumbar Spine Range of Motion Lumbar Spine Active Comments not tested due to recent surgery Hip Goniometric Range of Motion Hip ROM Limitations Comments mod decrease flexibility HS, quads, calves ronal Knee Goniometric Range of Motion Knee ronal Knee ROM WFL Yes Ankle and Foot Goniometric Range of Motion Ankle and Foot ronal Ankle/Foot ROM WFL No Dorsiflexion with Knee Flexed 5 Dorsiflexion with Knee Extended 0 PT-OP-L Special Tests Start: 10/03/23 16:35 Freq: Status: Active Protocol: Document 10/04/23 10:29 [facility] (Rec: 10/04/23 13:21 [facility] [id number]) Special Tests Lumbar Spine Special Tests Straight Leg Raise Test Results + HS tightness PT-OP-M Strength Start: 10/03/23 16:35 Freq: Status: Active Protocol: Document 10/04/23 10:29 [facility] (Rec: 10/04/23 13:21 [facility] [id number]) Trunk Strength Trunk Manual Muscle Testing Core Stabilization poor PT-OP-Q Treatments Start: 10/03/23 16:35 Freq: Status: Active Protocol: Document 01/05/24 10:11 AB (Rec: 01/05/24 12:19 AB [id number]) Cardio Equipment Bicycle (Upright) Duration (Minutes) 7 Resistance 12-14 Seat Position 6 Therapeutic Exercises Supine Exercises bent knee fall out Side bilateral Reps/Minutes X10 Comments verbal cues abdominal bracing with LE ext Side bilateral Reps/Minutes X10 hooklying ball press Supine Exercise Name bilateral Reps/Minutes 10x bug Supine Exercise Name Legs only Reps/Minutes X 1 trial Comments not kalpana Sitting Exercises seated ball press Reps/Minutes X4 Comments not kalpana seated hip abd with band Side bilateral Resistance level 2 band Reps/Minutes one minute X 1 Comments verbal cues Standing Exercises Prone hip flexion Standing Exercise Name resting on small australian ball positioned on raised mat Side bilateral Reps/Minutes X10 Comments verbal cues to brace as LE moves away from core Pallof press Reps/Minutes X10 Comments Verbal cues for hip hinge calf stretches Standing Exercise Name standing soleus and gastroc Side bilateral Reps/Minutes 60 each seconds X 2 each LE mini squat Side bilateral Resistance light blue band Reps/Minutes 2X10 Comments VC to keep tension on band and to squat to depth that does not inc pain Manual Therapy Treatment Taping SI to T10 paraspinals Body Location over existing tape Treatment Focus decreased muscle tension, pain Type of Tape KT Skin Inspection intact Comments I strips ronal, paper off tension L2-3 Body Location existing peeling/removed and replaced Treatment Focus pain reduction Type of Tape KT Skin Inspection intact Comments X pattern centered over L2-3, and X over T 12 75% stretch PT-OP-R Modalities Start: 10/03/23 16:35 Freq: Status: Active Protocol: Document 12/19/23 13:02 SAK (Rec: 12/19/23 13:50 SAK [id number]) Electric Stimulation Electric Stimulation ronal l/s Body Location ronal LS and SI Intensity 25 Target/Sweep Sweep Patient Position Sitting Combined With Heat/Cold Hot Pack Comments 90/90 position Hot Pack/Cold Pack Treatment Hot Pack Location left buttock Patient Position Sidelying Patient Tolerance Good Comments after manual, reports dec pain and stiffness PT-OP-T Assessment and Plan Start: 10/03/23 16:35 Freq: Status: Active Protocol: Document 01/05/24 10:11 AB (Rec: 01/05/24 12:19 AB [id number]) Physical Therapy Assessment Goals 3 Impairment gait Impairment patient unable to take walks for activity and exercise as previously 2-3 mi Short Term Goal (STG) Patient will be able to walk at least 1 mile without an increase in pain 11/20/23: reports inc pain after walkng 3/4 mile 12/21/23: limited to 1/2 mile STG Duration 11/20/23 Auto Body Builder Apprentice Goal (LTG) Patient will be able to walk at least 2 miles including incline without an increase in pain LTG Duration 01/04/24 2 Impairment activity tolerance Impairment Oswestry score 28% Short Term Goal (STG) Decrease Oswestry to no greater than 30% as measure of improved function and activity tolerance 11/09/23: min progress largely due to patient overdoing activity 12/21/23: increased to 42%, worse STG Duration 11/20/23 Group Home Goal (LTG) Decrease Oswestry to no greater than 15% as measure of imroved function and activity tolerance 12/21/23: LTG Duration 01/04/24 1 Impairment lumbar spine pain as high as 8 /10 Impairment LBP and ronal LE pain /10, spikes to 8/10 at times Short Term Goal (STG) Decrease pain by at least 50% with all usual activities 11/09/23: min progress due to patient overdoing at home 12/21/23: no significant change STG Duration 11/20/23 Auto Body Builder Apprentice Goal (LTG) Decrease pain by at least 75% with all usual activities LTG Duration 01/04/24 Assessment Summary Assessment Patient rates back pain 4/10, improved kalpana to bike with increased resistance this session. Physical Therapy Plan Frequency and Duration Frequency of Treatment 2x/Week Duration of treatment (weeks) 8 Plan of Care Start Date 12/21/23 Plan of Care End Date 02/20/24 Next Visit Focus/Plan Next Note Type Treatment Note Next Visit Plan Continue PT, further emphasis core stab pending any further recommendations from physician . Continue taping
--- NOTE | 2024-01-10 14:28 | PT.OTN ---
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 Had hematuria due to catheter going through urethral wall; will need surgery. Also reports left leg still swollen calf through the foot. Tried Trevor hose, not helpful. Pain level variable depending on Oxycodone and Methocarbomal; takes the edge off, trying to wean off. 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 Wearing back brace, using bone stimulatory 2 hours per day, walking level up to a mile but sometimes can't tolerate. Leg symptoms better, back pain continues at a high level; patient reports sites from robitic surgery. Hasn't yet taken any pain medication today. Tylenol doesn't do much. Still some tingling right leg, heel and foot. Prior history right SI fusion. Prior Treatments and Tests Tried heat, doesn't do much. Hasn't tried ice. Precautions : no walking on hills, no twisting, lifting, bending. Saw surgeon after 2 weeks, then goes back end of October. 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 Trying not to overdo. Hasn't gotten into his doctor yet. Basic supine exercises and theraband exercises ok. Patient reports helped neighbor clean up their yard Tuesday, tried not to bend over a lot, sore yesterday, pain today center back. Has appointments with both Dr. Kinsey and surgeon. PT-OP-G Mobility & Gait Start: 10/03/23 16:35 Freq: Status: Active Protocol: Document 10/04/23 10:29 [facility] (Rec: 10/04/23 13:21 [facility] [id number]) OP Gait Assessment Gait Gait Assistance Required: Independent Assistive Devices Assistive Device None Gait Deviations General Gait Pattern Decreased Stride Length, Decreased Feet Clearance Comments Gait Comments wearing back brace Stair Climbing Evaluation Comments Stair Climbing Comments precaution of no walking on elevation at this time PT-OP-H Neuro Start: 10/03/23 16:35 Freq: Status: Active Protocol: Document 10/04/23 10:29 [facility] (Rec: 10/04/23 13:21 [facility] [id number]) Sensation Evaluation Gross Sensation Gross Sensation WNL PT-OP-J Posture/Palpation/Skin Start: 10/03/23 16:35 Freq: Status: Active Protocol: Document 10/04/23 10:29 [facility] (Rec: 10/04/23 13:21 [facility] [id number]) Posture Evaluation Position Standing L-Spine Posture Flattened Palpation Assessment Location incisioni scar Palpation Findings Soft Tissue Tightness Palpation Details abdomen, lumbar spine, buttocks Skin Assessment Edema Assessment left foot, ankle, lower calf Edema Appearance Puffy PT-OP-K Range of Motion Start: 10/03/23 16:35 Freq: Status: Active Protocol: Document 10/04/23 10:29 [facility] (Rec: 10/04/23 13:21 [facility] [id number]) Lumbar Spine Range of Motion Lumbar Spine Active Comments not tested due to recent surgery Hip Goniometric Range of Motion Hip ROM Limitations Comments mod decrease flexibility HS, quads, calves ronal Knee Goniometric Range of Motion Knee ronal Knee ROM WFL Yes Ankle and Foot Goniometric Range of Motion Ankle and Foot ronal Ankle/Foot ROM WFL No Dorsiflexion with Knee Flexed 5 Dorsiflexion with Knee Extended 0 PT-OP-L Special Tests Start: 10/03/23 16:35 Freq: Status: Active Protocol: Document 10/04/23 10:29 [facility] (Rec: 10/04/23 13:21 [facility] [id number]) Special Tests Lumbar Spine Special Tests Straight Leg Raise Test Results + HS tightness PT-OP-M Strength Start: 10/03/23 16:35 Freq: Status: Active Protocol: Document 10/04/23 10:29 SAK (Rec: 10/04/23 13:21 [facility] [id number]) Trunk Strength Trunk Manual Muscle Testing Core Stabilization poor PT-OP-Q Treatments Start: 10/03/23 16:35 Freq: Status: Active Protocol: Document 01/10/24 10:30 SAK (Rec: 01/10/24 11:21 [facility] [id number]) Cardio Equipment Recumbent Bicycle Duration (Minutes) 8 Resistance 2-8 Seat Position 8 Bicycle (Upright) Other not turning on today Therapeutic Exercises Standing Exercises calf stretches Standing Exercise Name standing soleus and gastroc Side bilateral Reps/Minutes 60 each seconds X 2 each LE Comments stair Manual Therapy Treatment Soft Tissue Mobilization right quadratus Body Location quadratus lumborum bilateral Mobilization Type Rolling,Sustained Pressure Intensity/Depth Moderate Body Position Sidelying lumbar paraspinals Body Location bilateral Mobilization Type Myofascial Release,Strumming Intensity/Depth Moderate Body Position Sidelying Taping SI to T10 paraspinals Treatment Focus decreased muscle tension, pain Type of Tape KT Skin Inspection intact Comments I strips ronal, paper off tension L2-3 Treatment Focus pain reduction Type of Tape KT Skin Inspection intact Comments X pattern centered over L2-3, and L5-S1 and X over T 12 75% stretch Self-Care/Home Management Treatment Education Patient Education Body Mechanics,Posture,Safety Other Education reviewed body mechanics including for raking, vacuuming with return demo by patient; demonstrated good understanding. Continue to encourage decreased heavy activity at this time. PT-OP-R Modalities Start: 10/03/23 16:35 Freq: Status: Active Protocol: Document 01/10/24 10:30 [facility]AK (Rec: 01/10/24 14:28 [facility] [id number]) Hot Pack/Cold Pack Treatment Hot Pack Location ronal lumbar spine Patient Position Sidelying Patient Tolerance Good Comments after manual, reports dec pain and stiffness PT-OP-T Assessment and Plan Start: 10/03/23 16:35 Freq: Status: Active Protocol: Document 01/10/24 10:30 [facility] (Rec: 01/10/24 11:21 [facility] [id number]) Physical Therapy Assessment Goals 3 Impairment gait Impairment patient unable to take walks for activity and exercise as previously 2-3 mi Short Term Goal (STG) Patient will be able to walk at least 1 mile without an increase in pain 11/20/23: reports inc pain after walkng 3/4 mile 12/21/23: limited to 1/2 mile STG Duration 11/20/23 Intermediate Goal (LTG) Patient will be able to walk at least 2 miles including incline without an increase in pain LTG Duration 01/04/24 2 Impairment activity tolerance Impairment Oswestry score 28% Short Term Goal (STG) Decrease Oswestry to no greater than 30% as measure of improved function and activity tolerance 11/09/23: min progress largely due to patient overdoing activity 12/21/23: increased to 42%, worse STG Duration 11/20/23 Intermediate Goal (LTG) Decrease Oswestry to no greater than 15% as measure of imroved function and activity tolerance 12/21/23: LTG Duration 01/04/24 1 Impairment lumbar spine pain as high as 8 /10 Impairment LBP and ronal LE pain 10/30, spikes to 8/10 at times Short Term Goal (STG) Decrease pain by at least 50% with all usual activities 11/09/23: min progress due to patient overdoing at home 12/21/23: no significant change STG Duration 11/20/23 Intermediate Goal (LTG) Decrease pain by at least 75% with all usual activities LTG Duration 01/04/24 Assessment Summary Assessment Had to use recumbant ex bike today due to upright not working. Reviewed proper body mechanics including for raking and vacuuming today ( performing incorrectly at home ), reviewed lifting technique for back protection and safety . Prior good response to manual treatment QL followed by KT tape; done again today. Physical Therapy Plan Frequency and Duration Frequency of Treatment 2x/Week Duration of treatment (weeks) 8 Plan of Care Start Date 12/21/23 Plan of Care End Date 02/20/24 Next Visit Focus/Plan Next Note Type Treatment Note Next Visit Plan Evaluate response to today's treatment, continue core strengthening, consider sport cord.
--- NOTE | 2024-01-12 09:14 | PT-OP ANOTE ---
in ER with fever, UTI, being admitted
--- NOTE | 2024-01-30 12:59 | PT.OTN ---
Current Diagnoses Spondylolisthesis, lumbar region (01/30/24) Weakness (01/30/24) Physical Therapy Treatment Note PT-OP-A Visit Information Start: 10/03/23 16:35 Freq: Status: Active Protocol: Document 01/30/24 09:33 AB (Rec: 01/30/24 11:18 AB [id number]) Out-Patient Physical Therapy Visit Information Visit Information Visit Type Treatment Note Visit Start Time 09:49 Visit Stop Time 10:34 Visit Number 20 Number of [employer]PER[employer] Visits 1 Evaluation Information Evaluation Date 10/04/23 Precautions Precautions former R SI fusion PT-OP-B Current Condition Start: 10/03/23 16:35 Freq: Status: Active Protocol: Document 12/28/23 10:30 SAK (Rec: 12/28/23 11:20 SAK [id number]) Current Condition History of Current Condition Onset Date 6 weeks ago Current Complaints back pain, ronal leg pain History of Current Condition s/p lumbar spine surgery; 2 stage; cage insertion from anterior, and then L345 fusion second surgery. Had hematuria due to catheter going through urethral wall; will need surgery. Also reports left leg still swollen calf through the foot. Tried Trevor hose, not helpful. Pain level variable depending on Oxycodone and Methocarbomal; takes the edge off, trying to wean off. 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 Wearing back brace, using bone stimulatory 2 hours per day, walking level up to a mile but sometimes can't tolerate. Leg symptoms better, back pain continues at a high level; patient reports sites from robitic surgery. Hasn't yet taken any pain medication today. Tylenol doesn't do much. Still some tingling right leg, heel and foot. Prior history right SI fusion. Prior Treatments and Tests Tried heat, doesn't do much. Hasn't tried ice. Precautions : no walking on hills, no twisting, lifting, bending. Saw surgeon after 2 weeks, then goes back end of October. Future Testing and Treatments Planned as above PT-OP-C Subjective Start: 10/03/23 16:35 Freq: Status: Active Protocol: Document 01/30/24 09:33 AB (Rec: 01/30/24 11:18 AB [id number]) OP-PT Subjective Patient Comments Patient Comments Patient reports reports he was told to be more aware of sepsis symptoms. Patient reports he is no longer on antibiotics, and has no restrictions. Patient reports low back is still sore 10/30. Patient reports he walked about a mile the other day. Patient comments he has been having neck spasms has been getting trigger point injections which are not helping per patient. Patient request review of HEP and taping this session. Patient reports he hasn't been diligent with HEP. PT-OP-G Mobility & Gait Start: 10/03/23 16:35 Freq: Status: Active Protocol: Document 10/04/23 10:29 [facility] (Rec: 10/04/23 13:21 [facility] [id number]) OP Gait Assessment Gait Gait Assistance Required: Independent Assistive Devices Assistive Device None Gait Deviations General Gait Pattern Decreased Stride Length, Decreased Feet Clearance Comments Gait Comments wearing back brace Stair Climbing Evaluation Comments Stair Climbing Comments precaution of no walking on elevation at this time PT-OP-H Neuro Start: 10/03/23 16:35 Freq: Status: Active Protocol: Document 10/04/23 10:29 [facility] (Rec: 10/04/23 13:21 [facility] [id number]) Sensation Evaluation Gross Sensation Gross Sensation WNL PT-OP-J Posture/Palpation/Skin Start: 10/03/23 16:35 Freq: Status: Active Protocol: Document 10/04/23 10:29 [facility] (Rec: 10/04/23 13:21 [facility] [id number]) Posture Evaluation Position Standing L-Spine Posture Flattened Palpation Assessment Location incisioni scar Palpation Findings Soft Tissue Tightness Palpation Details abdomen, lumbar spine, buttocks Skin Assessment Edema Assessment left foot, ankle, lower calf Edema Appearance Puffy PT-OP-K Range of Motion Start: 10/03/23 16:35 Freq: Status: Active Protocol: Document 10/04/23 10:29 [facility] (Rec: 10/04/23 13:21 [facility] [id number]) Lumbar Spine Range of Motion Lumbar Spine Active Comments not tested due to recent surgery Hip Goniometric Range of Motion Hip ROM Limitations Comments mod decrease flexibility HS, quads, calves ronal Knee Goniometric Range of Motion Knee ronal Knee ROM WFL Yes Ankle and Foot Goniometric Range of Motion Ankle and Foot ronal Ankle/Foot ROM WFL No Dorsiflexion with Knee Flexed 5 Dorsiflexion with Knee Extended 0 PT-OP-L Special Tests Start: 10/03/23 16:35 Freq: Status: Active Protocol: Document 10/04/23 10:29 SAK (Rec: 10/04/23 13:21 SAK [id number]) Special Tests Lumbar Spine Special Tests Straight Leg Raise Test Results + HS tightness PT-OP-M Strength Start: 10/03/23 16:35 Freq: Status: Active Protocol: Document 10/04/23 10:29 SAK (Rec: 10/04/23 13:21 SAK [id number]) Trunk Strength Trunk Manual Muscle Testing Core Stabilization poor PT-OP-Q Treatments Start: 10/03/23 16:35 Freq: Status: Active Protocol: Document 01/30/24 09:33 AB (Rec: 01/30/24 11:18 AB [id number]) Cardio Equipment Bicycle (Upright) Duration (Minutes) 6 Resistance 13 Seat Position 6 Therapeutic Exercises Supine Exercises bent knee fall out Side bilateral Reps/Minutes X10 Comments verbal cues abdominal bracing with LE ext Side bilateral Reps/Minutes X10 LTR Supine Exercise Name on ball Reps/Minutes 10x Comments minimal movement, pt initiated posture press Reps/Minutes 10X Comments hooklying hooklying ball press Supine Exercise Name bilateral Reps/Minutes 10x bug Supine Exercise Name Legs only Reps/Minutes X 1 trial Comments not [place] Supine march Reps/Minutes 10x Comments cues for core activation, stable pelvis shoulder ext swapna Supine Exercise Name ADDED TO hep Side bilateral Reps/Minutes 10x Comments knees bent, cues for core leg lowering Supine Exercise Name supine 90/90, feet off table Reps/Minutes X1 Comments not [place] TrA thigh push Side bilateral Reps/Minutes 10x each LE TraA with hip IR/ER Reps/Minutes 10x TrA with arms overhead Supine Exercise Name overhead raise, and lateral fly Side bilateral Resistance 2# Reps/Minutes 10x Comments cues for core stab isometric shoulder ext Reps/Minutes 10x5 Comments cues for core activation, pillow squeeze Reps/Minutes 10x Comments cues for core activation glut set Side bilateral Reps/Minutes 10x TrA Supine Exercise Name review Reps/Minutes 5x Comments verbal and tactile cues Sidelying Exercises clam Sidelying Exercise Name back to wall Side bilateral Resistance level one band Sitting Exercises seated hip abd with band Side bilateral Resistance level 2 band Reps/Minutes one minute X 1 Comments verbal cues Standing Exercises Pallof press Resistance level one band Reps/Minutes X10 Comments Verbal cues for hip hinge Manual Therapy Treatment Taping SI to T10 paraspinals Treatment Focus decreased muscle tension, pain Type of Tape KT Comments I strips ronal, cross strip at area of pain and area of decreased tissue mobility scar tissue PT-OP-R Modalities Start: 10/03/23 16:35 Freq: Status: Active Protocol: Document 01/10/24 10:30 SAK (Rec: 01/10/24 14:28 SAK [id number]) Hot Pack/Cold Pack Treatment Hot Pack Location ronal lumbar spine Patient Position Sidelying Patient Tolerance Good Comments after manual, reports dec pain and stiffness PT-OP-T Assessment and Plan Start: 10/03/23 16:35 Freq: Status: Active Protocol: Document 01/30/24 09:33 AB (Rec: 01/30/24 11:18 AB [id number]) Physical Therapy Assessment Goals 3 Impairment gait Impairment patient unable to take walks for activity and exercise as previously 2-3 mi Short Term Goal (STG) Patient will be able to walk at least 1 mile without an increase in pain 11/20/23: reports inc pain after walkng 3/4 mile 12/21/23: limited to 1/2 mile STG Duration 11/20/23 Usp Goal (LTG) Patient will be able to walk at least 2 miles including incline without an increase in pain LTG Duration 01/04/24 2 Impairment activity tolerance Impairment Oswestry score 28% Short Term Goal (STG) Decrease Oswestry to no greater than 30% as measure of improved function and activity tolerance 11/09/23: min progress largely due to patient overdoing activity 12/21/23: increased to 42%, worse STG Duration 11/20/23 Medicaid Plan Compliance Director Goal (LTG) Decrease Oswestry to no greater than 15% as measure of imroved function and activity tolerance 12/21/23: LTG Duration 01/04/24 1 Impairment lumbar spine pain as high as 8 /10 Impairment LBP and ronal LE pain 10/30, spikes to 8/10 at times Short Term Goal (STG) Decrease pain by at least 50% with all usual activities 11/09/23: min progress due to patient overdoing at home 12/21/23: no significant change STG Duration 11/20/23 Usp Goal (LTG) Decrease pain by at least 75% with all usual activities LTG Duration 01/04/24 Assessment Summary Assessment Alferdo reports hips feel sore, but no back pain end of session, comments the tape helps. Physical Therapy Plan Frequency and Duration Frequency of Treatment 2x/Week Duration of treatment (weeks) 8 Plan of Care Start Date 12/21/23 Plan of Care End Date 02/20/24 Next Visit Focus/Plan Next Note Type Treatment Note Next Visit Plan Evaluate response to today's treatment, continue core strengthening, consider sport cord.
--- NOTE | 2024-02-01 12:09 | PT.OTN ---
Current Diagnoses Spondylolisthesis, lumbar region (02/01/24) Weakness (02/01/24) Physical Therapy Treatment Note PT-OP-A Visit Information Start: 10/03/23 16:35 Freq: Status: Active Protocol: Document 02/01/24 10:15 AB (Rec: 02/01/24 12:09 AB [id number]) Out-Patient Physical Therapy Visit Information Visit Information Visit Type Treatment Note Visit Start Time 11:18 Visit Stop Time 12:04 Visit Number 21 Number of SYSTEM TECHNOLOGIST Visits 2 PT-OP-B Current Condition Start: 10/03/23 16:35 Freq: Status: Active Protocol: Document 12/28/23 10:30 SAK (Rec: 12/28/23 11:20 SAK [id number]) Current Condition History of Current Condition Onset Date 6 weeks ago Current Complaints back pain, ronal leg pain History of Current Condition s/p lumbar spine surgery; 2 stage; cage insertion from anterior, and then L345 fusion second surgery. Had hematuria due to catheter going through urethral wall; will need surgery. Also reports left leg still swollen calf through the foot. Tried Trevor hose, not helpful. Pain level variable depending on Oxycodone and Methocarbomal; takes the edge off, trying to wean off. 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 Wearing back brace, using bone stimulatory 2 hours per day, walking level up to a mile but sometimes can't tolerate. Leg symptoms better, back pain continues at a high level; patient reports sites from robitic surgery. Hasn't yet taken any pain medication today. Tylenol doesn't do much. Still some tingling right leg, heel and foot. Prior history right SI fusion. Prior Treatments and Tests Tried heat, doesn't do much. Hasn't tried ice. Precautions : no walking on hills, no twisting, lifting, bending. Saw surgeon after 2 weeks, then goes back end of October. Future Testing and Treatments Planned as above PT-OP-C Subjective Start: 10/03/23 16:35 Freq: Status: Active Protocol: Document 02/01/24 10:15 AB (Rec: 02/01/24 12:09 AB [id number]) OP-PT Subjective Patient Comments Patient Comments Patient reports he is better, rating pain at 5/10 right sided back pain. Patient reports he did some of the exercises, had a bad day yesterday, neck spasm set of a migrane. PT-OP-G Mobility & Gait Start: 10/03/23 16:35 Freq: Status: Active Protocol: Document 10/04/23 10:29 [facility] (Rec: 10/04/23 13:21 [facility] [id number]) OP Gait Assessment Gait Gait Assistance Required: Independent Assistive Devices Assistive Device None Gait Deviations General Gait Pattern Decreased Stride Length, Decreased Feet Clearance Comments Gait Comments wearing back brace Stair Climbing Evaluation Comments Stair Climbing Comments precaution of no walking on elevation at this time PT-OP-H Neuro Start: 10/03/23 16:35 Freq: Status: Active Protocol: Document 10/04/23 10:29 [facility] (Rec: 10/04/23 13:21 [facility] [id number]) Sensation Evaluation Gross Sensation Gross Sensation WNL PT-OP-J Posture/Palpation/Skin Start: 10/03/23 16:35 Freq: Status: Active Protocol: Document 10/04/23 10:29 [facility] (Rec: 10/04/23 13:21 [facility] [id number]) Posture Evaluation Position Standing L-Spine Posture Flattened Palpation Assessment Location incisioni scar Palpation Findings Soft Tissue Tightness Palpation Details abdomen, lumbar spine, buttocks Skin Assessment Edema Assessment left foot, ankle, lower calf Edema Appearance Puffy PT-OP-K Range of Motion Start: 10/03/23 16:35 Freq: Status: Active Protocol: Document 10/04/23 10:29 [facility] (Rec: 10/04/23 13:21 [facility] [id number]) Lumbar Spine Range of Motion Lumbar Spine Active Comments not tested due to recent surgery Hip Goniometric Range of Motion Hip ROM Limitations Comments mod decrease flexibility HS, quads, calves ronal Knee Goniometric Range of Motion Knee ronal Knee ROM WFL Yes Ankle and Foot Goniometric Range of Motion Ankle and Foot ronal Ankle/Foot ROM WFL No Dorsiflexion with Knee Flexed 5 Dorsiflexion with Knee Extended 0 PT-OP-L Special Tests Start: 10/03/23 16:35 Freq: Status: Active Protocol: Document 10/04/23 10:29 SAK (Rec: 10/04/23 13:21 [facility] [id number]) Special Tests Lumbar Spine Special Tests Straight Leg Raise Test Results + HS tightness PT-OP-M Strength Start: 10/03/23 16:35 Freq: Status: Active Protocol: Document 10/04/23 10:29 SAK (Rec: 10/04/23 13:21 [facility]AK [id number]) Trunk Strength Trunk Manual Muscle Testing Core Stabilization poor PT-OP-Q Treatments Start: 10/03/23 16:35 Freq: Status: Active Protocol: Document 02/01/24 10:15 AB (Rec: 02/01/24 12:09 AB [id number]) Cardio Equipment Bicycle (Upright) Duration (Minutes) 7 Resistance 14 Seat Position 7 Therapeutic Exercises Supine Exercises deep breathing Supine Exercise Name HEP breathing from diaphragm while in modified restorative pose Reps/Minutes 5 min Comments verbal and tactile cues Sidelying Exercises reverse clamshell Side bilateral Resistance level one band Reps/Minutes X15 clam Side bilateral Resistance level one band Reps/Minutes X15 Sitting Exercises seated hip abd with band Side bilateral Resistance level 2 band Reps/Minutes one minute X 1 Comments verbal cues Standing Exercises hip ext Standing Exercise Name with abdominal bracing Side bilateral Reps/Minutes X10 over bolster and pillow on pinth Comments verbal cues calf stretches Standing Exercise Name standing soleus and gastroc Side bilateral Reps/Minutes 60 each seconds X 2 each LE Comments stair mini squat Side bilateral Resistance light blue band Reps/Minutes X10 Comments Verbal and visual cues for hip hinge PT-OP-R Modalities Start: 10/03/23 16:35 Freq: Status: Active Protocol: Document 01/10/24 10:30 [facility]AK (Rec: 01/10/24 14:28 SAK [id number]) Hot Pack/Cold Pack Treatment Hot Pack Location ronal lumbar spine Patient Position Sidelying Patient Tolerance Good Comments after manual, reports dec pain and stiffness PT-OP-T Assessment and Plan Start: 10/03/23 16:35 Freq: Status: Active Protocol: Document 02/01/24 10:15 AB (Rec: 02/01/24 12:09 AB [id number]) Physical Therapy Assessment Goals 3 Impairment gait Impairment patient unable to take walks for activity and exercise as previously 2-3 mi Short Term Goal (STG) Patient will be able to walk at least 1 mile without an increase in pain 11/20/23: reports inc pain after walkng 3/4 mile 12/21/23: limited to 1/2 mile STG Duration 11/20/23 [employer] Operator Goal (LTG) Patient will be able to walk at least 2 miles including incline without an increase in pain LTG Duration 01/04/24 2 Impairment activity tolerance Impairment Oswestry score 28% Short Term Goal (STG) Decrease Oswestry to no greater than 30% as measure of improved function and activity tolerance 11/09/23: min progress largely due to patient overdoing activity 12/21/23: increased to 42%, worse STG Duration 11/20/23 [facility]entiary Goal (LTG) Decrease Oswestry to no greater than 15% as measure of imroved function and activity tolerance 12/21/23: LTG Duration 01/04/24 1 Impairment lumbar spine pain as high as 8 /10 Impairment LBP and ronal LE pain 10/30, spikes to 8/10 at times Short Term Goal (STG) Decrease pain by at least 50% with all usual activities 11/09/23: min progress due to patient overdoing at home 12/21/23: no significant change STG Duration 11/20/23 Penitentiary Goal (LTG) Decrease pain by at least 75% with all usual activities LTG Duration 01/04/24 Assessment Summary Assessment Alfredo rates back pain 5/10 end of session. Good return demonstration HEP exercises reviewed. Added breathing in modified restorative pose to HEP. Physical Therapy Plan Frequency and Duration Frequency of Treatment 2x/Week Duration of treatment (weeks) 8 Plan of Care Start Date 12/21/23 Plan of Care End Date 02/20/24 Next Visit Focus/Plan Next Note Type Treatment Note Next Visit Plan Evaluate response to today's treatment, continue core strengthening, consider sport cord.
--- NOTE | 2024-02-08 16:00 | PT.OPPOC ---
Physical, Occupational & Speech Therapy At [facility] Current Diagnoses Spondylolisthesis, lumbar region (02/08/24) Weakness (02/08/24) Visit Care Team Role Provider Type Eddie Garcia DO Primary Care Provider Physician Specialty: Family Practice Address: [address] [place] [address], [address], [place], [address] Email: [email or web address] Family Provider Physician Specialty: Family Practice Address: [address] [place] [address], [id number] Email: Jose Carlos Khalil Attending Provider Non-Staff Referring Provider Specialty: Neurosurgery Address: [address] [place] [address], [id number] Email: Plan Of Care PT-OP-B Current Condition Start: 10/03/23 16:35 Freq: Status: Active Protocol: Document 12/28/23 10:30 [facility] (Rec: 12/28/23 11:20 [facility] [id number]) Current Condition History of Current Condition Onset Date 6 weeks ago Current Complaints back pain, ronal leg pain History of Current Condition s/p lumbar spine surgery; 2 stage; cage insertion from anterior, and then L345 fusion second surgery. Had hematuria due to catheter going through urethral wall; will need surgery. Also reports left leg still swollen calf through the foot. Tried Trevor hose, not helpful. Pain level variable depending on Oxycodone and Methocarbomal; takes the edge off, trying to wean off. 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 Wearing back brace, using bone stimulatory 2 hours per day, walking level up to a mile but sometimes can't tolerate. Leg symptoms better, back pain continues at a high level; patient reports sites from robitic surgery. Hasn't yet taken any pain medication today. Tylenol doesn't do much. Still some tingling right leg, heel and foot. Prior history right SI fusion. Prior Treatments and Tests Tried heat, doesn't do much. Hasn't tried ice. Precautions : no walking on hills, no twisting, lifting, bending. Saw surgeon after 2 weeks, then goes back end of October. Future Testing and Treatments Planned as above PT-OP-T Assessment and Plan Start: 10/03/23 16:35 Freq: Status: Active Protocol: Document 02/08/24 08:36 [facility] (Rec: 02/09/24 08:42 [facility] [id number]) Physical Therapy Assessment Goals 3 Impairment gait Impairment patient unable to take walks for activity and exercise as previously 2-3 mi Short Term Goal (STG) Patient will be able to walk at least 1 mile without an increase in pain 11/20/23: reports inc pain after walkng 3/4 mile 12/21/23: limited to 1/2 mile STG Duration 11/20/23 Nursing Home Goal (LTG) Patient will be able to walk at least 2 miles including incline without an increase in pain 02/08/2024 Patient ambulates 15 minutes outdoors on inclines and declines with pain increasing from 4/10 to 5/10 ( without device ) LTG Duration 02/20/24 2 Impairment activity tolerance Impairment Oswestry score 28% Short Term Goal (STG) Decrease Oswestry to no greater than 30% as measure of improved function and activity tolerance 11/09/23: min progress largely due to patient overdoing activity 12/21/23: increased to 42%, worse STG Duration 11/20/23 Nursing Home Goal (LTG) Decrease Oswestry to no greater than 15% as measure of imroved function and activity tolerance 12/21/23: 02/08/2024 32% score end of session physical therapy LTG Duration 02/20/24 1 Impairment lumbar spine pain as high as 8 /10 Impairment LBP and ronal LE pain /, spikes to 8/10 at times 02/08/2024 Patient into session with 4/10 pain, increased to 5-6/10 end of session post ext 5-6/10 post bike and ambulation outdoors on inclines/declines 5/10 Short Term Goal (STG) Decrease pain by at least 50% with all usual activities 11/09/23: min progress due to patient overdoing at home 12/21/23: no significant change 02/20/24: pain ranged from 4-5/ 10 during PT today, no spikes, goal progress STG Duration 11/20/23 Nursing Home 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 Feels KT tape very helpful, compliant to HEP. Recommend continued skilled PT to address above goals and help patient reutrn to usual activities. Physical Therapy Plan Frequency and Duration Frequency of Treatment 2x/Week Duration of treatment (weeks) 8 Plan of Care Start Date 02/08/24 Plan of Care End Date 04/09/24 Next Visit Focus/Plan Next Note Type Progress Note Next Visit Plan Continue PT with emphasis on core strengthening in all positions and with functional activities. Pain managmeent with modalities, manual therapy, KT tape as needed. Plan of Care Dates Plan of Care Start Date 02/08/24 Plan of Care End Date 04/09/24 Electronically Signed by: Juli Cotto, PT 02/09/24 0843 If you are in agreement with this Plan of Care, please return a signed and dated copy. I have reviewed this Plan of Care and certify that the skilled therapy services above are required to meet the patient?s needs. Physician Signature Date Printed Name and Credentials Clinical Instructor Signature Printed Name and Credentials
--- NOTE | 2024-02-08 16:00 | PT.OTRE ---
Current Diagnoses Spondylolisthesis, lumbar region (02/08/24) Weakness (02/08/24) Past Medical History (Last Reviewed 01/15/24 @ 11:10 by Guanako Mario MD) Actinic keratosis Ankle pain (~2001) BPH NOS w ur obs/LUTS Carpal tunnel syndrome (~2014) Cervical fusion syndrome Cervical somatic dysfunction Chronic migraine without aura, with status migrainosus Chronic neck and back pain Chronic right shoulder pain Cough Cranial somatic dysfunction Encounter for initial annual wellness visit (AWV) in Medicare patient Erectile dysfunction Fever Fibromyalgia (~2014) Fractures (~1983) GERD (gastroesophageal reflux disease) (~2011) Headache (~1995) Headache, chronic migraine without aura Hearing loss Hemicrania continua Herpes (~1995) History of urinary incontinence (~2019) Hypothyroidism Hypothyroidism (acquired) Lower urinary tract symptoms (LUTS) Lumbar region somatic dysfunction Lung nodule Melanoma (~2009) Migraines (~1995) Pelvic somatic dysfunction Post-void dribbling Removal of staple Rib pain on right side Sacral region somatic dysfunction Scalp laceration Sciatic pain Segmental and somatic dysfunction of abdomen and other regions Segmental and somatic dysfunction of rib cage Shoulder pain (~1999) Skin cancer (~2012) Sleep apnea (~2014) Somatic dysfunction of lower extremity Spondylolisthesis at L4-L5 level Stiffness of finger joint of right hand ZACH (stress urinary incontinence), male Thoracic region somatic dysfunction Tinnitus (~2009) Urethral false passage Vasculogenic erectile dysfunction Surgical History (Last Reviewed 01/15/24 @ 11:10 by Guanako Mario MD) Anesthesia History of carpal tunnel surgery History of fusion of cervical spine (~1995) History of fusion of cervical spine History of heart artery stent (~2012) History of hernia repair History of laminectomy (~2003) History of lumbar fusion (~2000) Pyloric stenosis (~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) S/P insertion of spinal cord stimulator S/P lumbar spinal fusion S/P TURP (status post transurethral resection of prostate) Visit Care Team Role Provider Type Eddie Garcia DO Primary Care Provider Physician Specialty: [facility] Practice Address: [address] [place] [address], [address], [address] Email: [email or web address] David Dewitt DO Family Provider Physician Specialty: [facility] Practice Address: [address] [place] [address], [id number] Email: Jose Carlos Khalil Attending Provider Non-Staff Referring Provider Specialty: Neurosurgery Address: [place], [address] Email: Physical Therapy Re-Evaluation PT-OP-A Visit Information Start: 10/03/23 16:35 Freq: Status: Active Protocol: Document 02/08/24 08:36 SAK (Rec: 02/09/24 08:42 SAK [id number]) Out-Patient Physical Therapy Visit Information Visit Information Visit Type Re-Evaluation Visit Start Time 08:37 Precautions Precautions former R SI fusion PT-OP-B Current Condition Start: 10/03/23 16:35 Freq: Status: Active Protocol: Document 12/28/23 10:30 SAK (Rec: 12/28/23 11:20 [facility] [id number]) Current Condition History of Current Condition Onset Date 6 weeks ago Current Complaints back pain, ronal leg pain History of Current Condition s/p lumbar spine surgery; 2 stage; cage insertion from anterior, and then L345 fusion second surgery. Had hematuria due to catheter going through urethral wall; will need surgery. Also reports left leg still swollen calf through the foot. Tried Trevor hose, not helpful. Pain level variable depending on Oxycodone and Methocarbomal; takes the edge off, trying to wean off. 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 Wearing back brace, using bone stimulatory 2 hours per day, walking level up to a mile but sometimes can't tolerate. Leg symptoms better, back pain continues at a high level; patient reports sites from robitic surgery. Hasn't yet taken any pain medication today. Tylenol doesn't do much. Still some tingling right leg, heel and foot. Prior history right SI fusion. Prior Treatments and Tests Tried heat, doesn't do much. Hasn't tried ice. Precautions : no walking on hills, no twisting, lifting, bending. Saw surgeon after 2 weeks, then goes back end of October. Future Testing and Treatments Planned as above PT-OP-C Subjective Start: 10/03/23 16:35 Freq: Status: Active Protocol: Document 02/08/24 08:30 AB (Rec: 02/08/24 16:23 AB [id number]) OP-PT Subjective Patient Comments Patient Comments Patient rates pain 4/10 back pain, back to yard work, mowing, raking. Patient hasn't done any long walks or hills, only walking around the house . Patient reports walking uphill sets things off PT-OP-G Mobility & Gait Start: 10/03/23 16:35 Freq: Status: Active Protocol: Document 10/04/23 10:29 SAK (Rec: 10/04/23 13:21 SAK [id number]) OP Gait Assessment Gait Gait Assistance Required: Independent Assistive Devices Assistive Device None Gait Deviations General Gait Pattern Decreased Stride Length, Decreased Feet Clearance Comments Gait Comments wearing back brace Stair Climbing Evaluation Comments Stair Climbing Comments precaution of no walking on elevation at this time PT-OP-H Neuro Start: 10/03/23 16:35 Freq: Status: Active Protocol: Document 10/04/23 10:29 SAK (Rec: 10/04/23 13:21 [facility] [id number]) Sensation Evaluation Gross Sensation Gross Sensation WNL PT-OP-J Posture/Palpation/Skin Start: 10/03/23 16:35 Freq: Status: Active Protocol: Document 10/04/23 10:29 SAK (Rec: 10/04/23 13:21 [facility] [id number]) Posture Evaluation Position Standing L-Spine Posture Flattened Palpation Assessment Location incisioni scar Palpation Findings Soft Tissue Tightness Palpation Details abdomen, lumbar spine, buttocks Skin Assessment Edema Assessment left foot, ankle, lower calf Edema Appearance Puffy PT-OP-K Range of Motion Start: 10/03/23 16:35 Freq: Status: Active Protocol: Document 10/04/23 10:29 SAK (Rec: 10/04/23 13:21 SAK [id number]) Lumbar Spine Range of Motion Lumbar Spine Active Comments not tested due to recent surgery Hip Goniometric Range of Motion Hip ROM Limitations Comments mod decrease flexibility HS, quads, calves ronal Knee Goniometric Range of Motion Knee Measured in Degrees ronal Knee ROM WFL Yes Ankle and Foot Goniometric Range of Motion Ankle and Foot Measured in Degrees ronal Ankle/Foot ROM WFL No Dorsiflexion with Knee Flexed 5 Dorsiflexion with Knee Extended 0 PT-OP-L Special Tests Start: 10/03/23 16:35 Freq: Status: Active Protocol: Document 10/04/23 10:29 SAK (Rec: 10/04/23 13:21 SAK [id number]) Special Tests Lumbar Spine Special Tests Straight Leg Raise Test Results + HS tightness PT-OP-M Strength Start: 10/03/23 16:35 Freq: Status: Active Protocol: Document 10/04/23 10:29 SAK (Rec: 10/04/23 13:21 SAK [id number]) Trunk Strength Trunk Manual Muscle Testing Core Stabilization poor PT-OP-Q Treatments Start: 10/03/23 16:35 Freq: Status: Active Protocol: Document 02/08/24 08:30 AB (Rec: 02/08/24 16:23 AB [id number]) Cardio Equipment Bicycle (Upright) Duration (Minutes) 7 Resistance 14-18 Seat Position 7 Therapeutic Exercises Supine Exercises Breathing from diaphragm in modified restortive poste Reps/Minutes 2-3 min bent knee fall out Side bilateral Reps/Minutes X10 Comments verbal cues abdominal bracing with LE ext Side bilateral Reps/Minutes X10 hamstring stretch Supine Exercise Name from hooklying AROM knee extension sciatic ner glide pattern Side bilateral Reps/Minutes 20 to 60 sec X 2 each LE Comments verbal cues for ankle pumps X 5 right X 10 left Sitting Exercises seated hip abd with band Side bilateral Resistance level 3 band Reps/Minutes one minute X 1 Comments verbal cues Therapeutic Activity Therapeutic Activity outdoor ambulation and stairs. Name ambulation outdoors post stair training for slight hip hinge asce and desc Reps/Minutes without device Comments 15 min ambulation out doors increased focus on inclines and delines Pain 5/10 pain low back. right groin with reports of tightness first 1 minute Manual Therapy Treatment Taping SI to T10 paraspinals Body Location SI to Thoracic Treatment Focus decreased muscle tension, pain Type of Tape KT Comments I strips ronal, cross strip at area of pain and area of decreased tissue mobility scar tissue PT-OP-R Modalities Start: 10/03/23 16:35 Freq: Status: Active Protocol: Document 01/10/24 10:30 SAK (Rec: 01/10/24 14:28 SAK [id number]) Hot Pack/Cold Pack Treatment Hot Pack Location ronal lumbar spine Patient Position Sidelying Patient Tolerance Good Comments after manual, reports dec pain and stiffness PT-OP-T Assessment and Plan Start: 10/03/23 16:35 Freq: Status: Active Protocol: Document 02/08/24 08:36 KEISHA (Rec: 02/09/24 08:42 [facility] [id number]) Physical Therapy Assessment Goals 3 Impairment gait Impairment patient unable to take walks for activity and exercise as previously 2-3 mi Short Term Goal (STG) Patient will be able to walk at least 1 mile without an increase in pain 11/20/23: reports inc pain after walkng 3/4 mile 12/21/23: limited to 1/2 mile STG Duration 11/20/23 Prison Goal (LTG) Patient will be able to walk at least 2 miles including incline without an increase in pain 02/08/2024 Patient ambulates 15 minutes outdoors on inclines and declines with pain increasing from 4/10 to 5/10 ( without device ) LTG Duration 02/20/24 2 Impairment activity tolerance Impairment Oswestry score 28% Short Term Goal (STG) Decrease Oswestry to no greater than 30% as measure of improved function and activity tolerance 11/09/23: min progress largely due to patient overdoing activity 12/21/23: increased to 42%, worse STG Duration 11/20/23 Prison Goal (LTG) Decrease Oswestry to no greater than 15% as measure of imroved function and activity tolerance 12/21/23: 02/08/2024 32% score end of session physical therapy LTG Duration 02/20/24 1 Impairment lumbar spine pain as high as 8 /10 Impairment LBP and ronal LE pain /, spikes to 8/10 at times 02/08/2024 Patient into session with 4/10 pain, increased to 5-6/10 end of session post ext 5-6/10 post bike and ambulation outdoors on inclines/declines 5/10 Short Term Goal (STG) Decrease pain by at least 50% with all usual activities 11/09/23: min progress due to patient overdoing at home 12/21/23: no significant change 02/20/24: pain ranged from 4-5/ 10 during PT today, no spikes, goal progress STG Duration 11/20/23 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 Feels KT tape very helpful, compliant to HEP. Recommend continued skilled PT to address above goals and help patient reutrn to usual activities. Physical Therapy Plan Frequency and Duration Frequency of Treatment 2x/Week Duration of treatment (weeks) 8 Plan of Care Start Date 02/08/24 Plan of Care End Date 04/09/24 Next Visit Focus/Plan Next Note Type Progress Note Next Visit Plan Continue PT with emphasis on core strengthening in all positions and with functional activities. Pain managmeent with modalities, manual therapy, KT tape as needed.
--- NOTE | 2024-02-08 16:23 | PT.OTN ---
Current Diagnoses Spondylolisthesis, lumbar region (02/08/24) Weakness (02/08/24) Physical Therapy Treatment Note PT-OP-A Visit Information Start: 10/03/23 16:35 Freq: Status: Active Protocol: Document 02/08/24 08:30 AB (Rec: 02/08/24 16:23 AB [id number]) Out-Patient Physical Therapy Visit Information Visit Information Visit Type Treatment Note Visit Start Time 10:34 Visit Stop Time 11:18 Visit Number 22 Number of CHEMICAL INSTRUMENTATION OFFICER Visits 3 Evaluation Information Evaluation Date 10/04/23 Precautions Precautions former R SI fusion PT-OP-B Current Condition Start: 10/03/23 16:35 Freq: Status: Active Protocol: Document 12/28/23 10:30 SAK (Rec: 12/28/23 11:20 SAK [id number]) Current Condition History of Current Condition Onset Date 6 weeks ago Current Complaints back pain, ronal leg pain History of Current Condition s/p lumbar spine surgery; 2 stage; cage insertion from anterior, and then L345 fusion second surgery. Had hematuria due to catheter going through urethral wall; will need surgery. Also reports left leg still swollen calf through the foot. Tried Trevor hose, not helpful. Pain level variable depending on Oxycodone and Methocarbomal; takes the edge off, trying to wean off. 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 Wearing back brace, using bone stimulatory 2 hours per day, walking level up to a mile but sometimes can't tolerate. Leg symptoms better, back pain continues at a high level; patient reports sites from robitic surgery. Hasn't yet taken any pain medication today. Tylenol doesn't do much. Still some tingling right leg, heel and foot. Prior history right SI fusion. Prior Treatments and Tests Tried heat, doesn't do much. Hasn't tried ice. Precautions : no walking on hills, no twisting, lifting, bending. Saw surgeon after 2 weeks, then goes back end of October. Future Testing and Treatments Planned as above PT-OP-C Subjective Start: 10/03/23 16:35 Freq: Status: Active Protocol: Document 02/08/24 08:30 AB (Rec: 02/08/24 16:23 AB [id number]) OP-PT Subjective Patient Comments Patient Comments Patient rates pain 4/10 back pain, back to yard work, mowing, raking. Patient hasn't done any long walks or hills, only walking around the house . Patient reports walking uphill sets things off PT-OP-G Mobility & Gait Start: 10/03/23 16:35 Freq: Status: Active Protocol: Document 10/04/23 10:29 [facility] (Rec: 10/04/23 13:21 [facility] [id number]) OP Gait Assessment Gait Gait Assistance Required: Independent Assistive Devices Assistive Device None Gait Deviations General Gait Pattern Decreased Stride Length, Decreased Feet Clearance Comments Gait Comments wearing back brace Stair Climbing Evaluation Comments Stair Climbing Comments precaution of no walking on elevation at this time PT-OP-H Neuro Start: 10/03/23 16:35 Freq: Status: Active Protocol: Document 10/04/23 10:29 [facility] (Rec: 10/04/23 13:21 [facility] [id number]) Sensation Evaluation Gross Sensation Gross Sensation WNL PT-OP-J Posture/Palpation/Skin Start: 10/03/23 16:35 Freq: Status: Active Protocol: Document 10/04/23 10:29 [facility] (Rec: 10/04/23 13:21 [facility] [id number]) Posture Evaluation Position Standing L-Spine Posture Flattened Palpation Assessment Location incisioni scar Palpation Findings Soft Tissue Tightness Palpation Details abdomen, lumbar spine, buttocks Skin Assessment Edema Assessment left foot, ankle, lower calf Edema Appearance Puffy PT-OP-K Range of Motion Start: 10/03/23 16:35 Freq: Status: Active Protocol: Document 10/04/23 10:29 [facility] (Rec: 10/04/23 13:21 [facility] [id number]) Lumbar Spine Range of Motion Lumbar Spine Active Comments not tested due to recent surgery Hip Goniometric Range of Motion Hip ROM Limitations Comments mod decrease flexibility HS, quads, calves ronal Knee Goniometric Range of Motion Knee ronal Knee ROM WFL Yes Ankle and Foot Goniometric Range of Motion Ankle and Foot ronal Ankle/Foot ROM WFL No Dorsiflexion with Knee Flexed 5 Dorsiflexion with Knee Extended 0 PT-OP-L Special Tests Start: 10/03/23 16:35 Freq: Status: Active Protocol: Document 10/04/23 10:29 [facility] (Rec: 10/04/23 13:21 [facility] [id number]) Special Tests Lumbar Spine Special Tests Straight Leg Raise Test Results + HS tightness PT-OP-M Strength Start: 10/03/23 16:35 Freq: Status: Active Protocol: Document 10/04/23 10:29 SAK (Rec: 10/04/23 13:21 SAK [id number]) Trunk Strength Trunk Manual Muscle Testing Core Stabilization poor PT-OP-Q Treatments Start: 10/03/23 16:35 Freq: Status: Active Protocol: Document 02/08/24 08:30 AB (Rec: 02/08/24 16:23 AB [id number]) Cardio Equipment Bicycle (Upright) Duration (Minutes) 7 Resistance 14-18 Seat Position 7 Therapeutic Exercises Supine Exercises Breathing from diaphragm in modified restortive poste Reps/Minutes 2-3 min bent knee fall out Side bilateral Reps/Minutes X10 Comments verbal cues abdominal bracing with LE ext Side bilateral Reps/Minutes X10 hamstring stretch Supine Exercise Name from hooklying AROM knee extension sciatic ner glide pattern Side bilateral Reps/Minutes 20 to 60 sec X 2 each LE Comments verbal cues for ankle pumps X 5 right X 10 left Sitting Exercises seated hip abd with band Side bilateral Resistance level 3 band Reps/Minutes one minute X 1 Comments verbal cues Therapeutic Activity Therapeutic Activity outdoor ambulation and stairs. Name ambulation outdoors post stair training for slight hip hinge asce and desc Reps/Minutes without device Comments 15 min ambulation out doors increased focus on inclines and delines Pain 5/10 pain low back. right groin with reports of tightness first 1 minute Manual Therapy Treatment Taping SI to T10 paraspinals Body Location SI to Thoracic Treatment Focus decreased muscle tension, pain Type of Tape KT Comments I strips ronal, cross strip at area of pain and area of decreased tissue mobility scar tissue PT-OP-R Modalities Start: 10/03/23 16:35 Freq: Status: Active Protocol: Document 01/10/24 10:30 SAK (Rec: 01/10/24 14:28 SAK [id number]) Hot Pack/Cold Pack Treatment Hot Pack Location ronal lumbar spine Patient Position Sidelying Patient Tolerance Good Comments after manual, reports dec pain and stiffness PT-OP-T Assessment and Plan Start: 10/03/23 16:35 Freq: Status: Active Protocol: Document 02/08/24 08:30 AB (Rec: 02/08/24 16:23 AB [id number]) Physical Therapy Assessment Goals 3 Impairment gait Impairment patient unable to take walks for activity and exercise as previously 2-3 mi Short Term Goal (STG) Patient will be able to walk at least 1 mile without an increase in pain 11/20/23: reports inc pain after walkng 3/4 mile 12/21/23: limited to 1/2 mile STG Duration 11/20/23 Detention Goal (LTG) Patient will be able to walk at least 2 miles including incline without an increase in pain 02/08/2024 Patient ambulates 15 minutes outdoors on inclines and declines with pain increasing from 4/10 to 5/10 ( without device ) LTG Duration 01/04/24 2 Impairment activity tolerance Impairment Oswestry score 28% Short Term Goal (STG) Decrease Oswestry to no greater than 30% as measure of improved function and activity tolerance 11/09/23: min progress largely due to patient overdoing activity 12/21/23: increased to 42%, worse STG Duration 11/20/23 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 (LTG) Decrease Oswestry to no greater than 15% as measure of imroved function and activity tolerance 12/21/23: 02/08/2024 32% score end of session physical therapy LTG Duration 01/04/24 1 Impairment lumbar spine pain as high as 8 /10 Impairment LBP and ronal LE pain /, spikes to 8/10 at times 02/08/2024 Patient into session with 4/10 pain, increased to 5-6/10 end of session post ext 5-6/10 post bike and ambulation outdoors on inclines/declines 5/10 Short Term Goal (STG) Decrease pain by at least 50% with all usual activities 11/09/23: min progress due to patient overdoing at home 12/21/23: no significant change STG Duration 11/20/23 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 Goal (LTG) Decrease pain by at least 75% with all usual activities LTG Duration 01/04/24 Assessment Summary Assessment Patient rates back pain 5-6/10 end of session. Of note pain only increased from 4/10 to 5/ 10 post ambulation outdoors 15 minutes on inclines and declines without device Physical Therapy Plan Frequency and Duration Frequency of Treatment 2x/Week Duration of treatment (weeks) 8 Plan of Care Start Date 12/21/23 Plan of Care End Date 02/20/24 Next Visit Focus/Plan Next Note Type Progress Note Next Visit Plan Evaluate response to today's treatment, continue core strengthening, consider sport cord.
--- NOTE | 2024-02-23 16:20 | PT.OTN ---
Current Diagnoses Spondylolisthesis, lumbar region (02/23/24) Weakness (02/23/24) Physical Therapy Treatment Note PT-OP-A Visit Information Start: 10/03/23 16:35 Freq: Status: Active Protocol: Document 02/23/24 12:56 SAK (Rec: 02/23/24 13:58 [facility] [id number]) Out-Patient Physical Therapy Visit Information Visit Information Visit Type Treatment Note Visit Start Time 12:57 Visit Stop Time 13:55 Visit Number 24 Evaluation Information Evaluation Date 10/04/23 Precautions Precautions former R SI fusion PT-OP-B Current Condition Start: 10/03/23 16:35 Freq: Status: Active Protocol: Document 12/28/23 10:30 SAK (Rec: 12/28/23 11:20 SAK [id number]) Current Condition History of Current Condition Onset Date 6 weeks ago Current Complaints back pain, ronal leg pain History of Current Condition s/p lumbar spine surgery; 2 stage; cage insertion from anterior, and then L345 fusion second surgery. Had hematuria due to catheter going through urethral wall; will need surgery. Also reports left leg still swollen calf through the foot. Tried Trevor hose, not helpful. Pain level variable depending on Oxycodone and Methocarbomal; takes the edge off, trying to wean off. 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 Wearing back brace, using bone stimulatory 2 hours per day, walking level up to a mile but sometimes can't tolerate. Leg symptoms better, back pain continues at a high level; patient reports sites from robitic surgery. Hasn't yet taken any pain medication today. Tylenol doesn't do much. Still some tingling right leg, heel and foot. Prior history right SI fusion. Prior Treatments and Tests Tried heat, doesn't do much. Hasn't tried ice. Precautions : no walking on hills, no twisting, lifting, bending. Saw surgeon after 2 weeks, then goes back end of October. Future Testing and Treatments Planned as above PT-OP-C Subjective Start: 10/03/23 16:35 Freq: Status: Active Protocol: Document 02/23/24 12:56 SAK (Rec: 02/23/24 13:58 [facility] [id number]) OP-PT Subjective Patient Comments Patient Comments Pain 5-8/10. States thighs feel numb, back pain is straight across lower back. Feeling better when last seen 08/30. Pain wakes him in am. Sleeping on alternating sides, using pillow between knees. Activity level recently has included trimming a tree overhead, using a ladder had neck spasms and SO. Has been doing a lot of yardwork. States he feels good while doing the yardwork, then pays for it afterwards. States doing the work is satisfying, the pain is not stopping him from doing it despite PT education not to do as much heavy physical activity due to exacerbation of pain. States he dug out his exercise bike at home but hasn't really used yet. Hasn't tried aquatic exercise as prevoiusly recommended. Hasn't used KT tape at home. PT-OP-G Mobility & Gait Start: 10/03/23 16:35 Freq: Status: Active Protocol: Document 10/04/23 10:29 [facility] (Rec: 10/04/23 13:21 [facility] [id number]) OP Gait Assessment Gait Gait Assistance Required: Independent Assistive Devices Assistive Device None Gait Deviations General Gait Pattern Decreased Stride Length, Decreased Feet Clearance Comments Gait Comments wearing back brace Stair Climbing Evaluation Comments Stair Climbing Comments precaution of no walking on elevation at this time PT-OP-H Neuro Start: 10/03/23 16:35 Freq: Status: Active Protocol: Document 10/04/23 10:29 [facility] (Rec: 10/04/23 13:21 [facility] [id number]) Sensation Evaluation Gross Sensation Gross Sensation WNL PT-OP-J Posture/Palpation/Skin Start: 10/03/23 16:35 Freq: Status: Active Protocol: Document 10/04/23 10:29 [facility] (Rec: 10/04/23 13:21 [facility] [id number]) Posture Evaluation Position Standing L-Spine Posture Flattened Palpation Assessment Location incisioni scar Palpation Findings Soft Tissue Tightness Palpation Details abdomen, lumbar spine, buttocks Skin Assessment Edema Assessment left foot, ankle, lower calf Edema Appearance Puffy PT-OP-K Range of Motion Start: 10/03/23 16:35 Freq: Status: Active Protocol: Document 10/04/23 10:29 [facility] (Rec: 10/04/23 13:21 [facility] [id number]) Lumbar Spine Range of Motion Lumbar Spine Active Comments not tested due to recent surgery Hip Goniometric Range of Motion Hip ROM Limitations Comments mod decrease flexibility HS, quads, calves ronal Knee Goniometric Range of Motion Knee ronal Knee ROM WFL Yes Ankle and Foot Goniometric Range of Motion Ankle and Foot ronal Ankle/Foot ROM WFL No Dorsiflexion with Knee Flexed 5 Dorsiflexion with Knee Extended 0 PT-OP-L Special Tests Start: 10/03/23 16:35 Freq: Status: Active Protocol: Document 10/04/23 10:29 [facility] (Rec: 10/04/23 13:21 [facility] [id number]) Special Tests Lumbar Spine Special Tests Straight Leg Raise Test Results + HS tightness PT-OP-M Strength Start: 10/03/23 16:35 Freq: Status: Active Protocol: Document 10/04/23 10:29 [facility] (Rec: 10/04/23 13:21 [facility] [id number]) Trunk Strength Trunk Manual Muscle Testing Core Stabilization poor PT-OP-Q Treatments Start: 10/03/23 16:35 Freq: Status: Active Protocol: Document 02/23/24 12:56 [facility] (Rec: 02/23/24 13:58 [facility] [id number]) Cardio Equipment Bicycle (Upright) Duration (Minutes) 13 Resistance 14-18 Seat Position 7 Therapeutic Exercises Other Exercises Marely 3 Other Exercise Name standing side plank, the Marely curl up, Bird dog Reps/Minutes 3x 1 min ronal, 10x, 5x Therapeutic Activity Therapeutic Activity outdoor ambulation and stairs. Comments reviewed technique Manual Therapy Treatment Taping SI to T10 paraspinals Body Location SI to Thoracic Treatment Focus decreased muscle tension, pain Type of Tape KT Comments I strips ronal, cross strip at area of pain and area of decreased tissue mobility scar tissue Self-Care/Home Management Treatment Education Patient Education Body Mechanics,Home Exercise Program,Joint Protection,Pain Management,Posture Other Education issued updated HEP HO PT-OP-R Modalities Start: 10/03/23 16:35 Freq: Status: Active Protocol: Document 01/10/24 10:30 [facility] (Rec: 01/10/24 14:28 [facility] [id number]) Hot Pack/Cold Pack Treatment Hot Pack Location ronal lumbar spine Patient Position Sidelying Patient Tolerance Good Comments after manual, reports dec pain and stiffness PT-OP-T Assessment and Plan Start: 10/03/23 16:35 Freq: Status: Active Protocol: Document 02/23/24 12:56 [facility] (Rec: 02/23/24 13:58 [facility] [id number]) Physical Therapy Assessment Goals 3 Impairment gait Impairment patient unable to take walks for activity and exercise as previously 2-3 mi Short Term Goal (STG) Patient will be able to walk at least 1 mile without an increase in pain 11/20/23: reports inc pain after walkng 3/4 mile 12/21/23: limited to 1/2 mile STG Duration 11/20/23 Retirement Goal (LTG) Patient will be able to walk at least 2 miles including incline without an increase in pain 02/08/2024 Patient ambulates 15 minutes outdoors on inclines and declines with pain increasing from 4/10 to 5/10 ( without device ) LTG Duration 04/09/24 2 Impairment activity tolerance Impairment Oswestry score 28% Short Term Goal (STG) Decrease Oswestry to no greater than 30% as measure of improved function and activity tolerance 11/09/23: min progress largely due to patient overdoing activity 12/21/23: increased to 42%, worse STG Duration 11/20/23 Room Cooler Installer Goal (LTG) Decrease Oswestry to no greater than 15% as measure of imroved function and activity tolerance 12/21/23: 02/08/2024 32% score end of session physical therapy LTG Duration 04/09/24 1 Impairment lumbar spine pain as high as 8 /10 Impairment LBP and ronal LE pain /10, spikes to 8/10 at times 02/08/2024 Patient into session with 4/10 pain, increased to 5-6/10 end of session post ext 5-6/10 post bike and ambulation outdoors on inclines/declines 5/10 Short Term Goal (STG) Decrease pain by at least 50% with all usual activities 11/09/23: min progress due to patient overdoing at home 12/21/23: no significant change 02/20/24: pain ranged from 4-5/ 10 during PT today, no spikes, goal progress STG Duration 11/20/23 Retirement Goal (LTG) Decrease pain by at least 75% with all usual activities LTG Duration 04/09/24 Assessment Summary Assessment Patient frustrated continued pain but also continues with heavy physical activity in yard and reports increased pain; much discussion about results from fusions and increased stress to adjacent areas, importance of body mechanics and not overdoing. Patient to consider talking with physician about possible removal of screws from fusion. Patient was instructed in Marely Big 3 exercises for continued core strengthening and issued a HO; patient reported feeling better at end of session today, emphasized form and slowly increasing hold time and/or repetitions. Physical Therapy Plan Frequency and Duration Frequency of Treatment 1x/Week Duration of treatment (weeks) 8 Plan of Care Start Date 02/08/24 Plan of Care End Date 04/09/24 Next Visit Focus/Plan Next Note Type Treatment Note Next Visit Plan Continue PT with emphasis on core strengthening in all positions and with functional activities. Pain managmeent with modalities, manual therapy, KT tape as needed.
--- NOTE | 2024-03-02 12:16 | PT.OTN ---
Current Diagnoses Spondylolisthesis, lumbar region (03/02/24) Weakness (03/02/24) Physical Therapy Treatment Note PT-OP-A Visit Information Start: 10/03/23 16:35 Freq: Status: Active Protocol: Document 03/02/24 11:36 SP (Rec: 03/02/24 12:27 SP [id number]) Out-Patient Physical Therapy Visit Information Visit Information Visit Type Treatment Note Visit Note *AUTOMATIC WASHER MECHANIC unable find HO in clinic and pt didn't bring with him, searched and printed off [place]. Visit Start Time 11:36 Visit Stop Time 12:16 Visit Number 25 Number of AUTOMATIC WASHER MECHANIC Visits 1 Evaluation Information Evaluation Date 10/04/23 Precautions Precautions former R SI fusion PT-OP-B Current Condition Start: 10/03/23 16:35 Freq: Status: Active Protocol: Document 12/28/23 10:30 SAK (Rec: 12/28/23 11:20 SAK [id number]) Current Condition History of Current Condition Onset Date 6 weeks ago Current Complaints back pain, ronal leg pain History of Current Condition s/p lumbar spine surgery; 2 stage; cage insertion from anterior, and then L345 fusion second surgery. Had hematuria due to catheter going through urethral wall; will need surgery. Also reports left leg still swollen calf through the foot. Tried Trevor hose, not helpful. Pain level variable depending on Oxycodone and Methocarbomal; takes the edge off, trying to wean off. 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 Wearing back brace, using bone stimulatory 2 hours per day, walking level up to a mile but sometimes can't tolerate. Leg symptoms better, back pain continues at a high level; patient reports sites from robitic surgery. Hasn't yet taken any pain medication today. Tylenol doesn't do much. Still some tingling right leg, heel and foot. Prior history right SI fusion. Prior Treatments and Tests Tried heat, doesn't do much. Hasn't tried ice. Precautions : no walking on hills, no twisting, lifting, bending. Saw surgeon after 2 weeks, then goes back end of October. Future Testing and Treatments Planned as above PT-OP-C Subjective Start: 10/03/23 16:35 Freq: Status: Active Protocol: Document 03/02/24 11:36 SP (Rec: 03/02/24 12:27 SP [id number]) OP-PT Subjective Patient Comments Patient Comments Pt reports thinks the ktaping helped and took off Tues with no adverse response, would like reapplied today. He tried swimming couple days ago and bothersome to back, did do warm ups before breast swimming: hot tub, walking. He sat in car alot to visit famly in [facility] so back was sore PT-OP-G Mobility & Gait Start: 10/03/23 16:35 Freq: Status: Active Protocol: Document 10/04/23 10:29 [facility] (Rec: 10/04/23 13:21 [facility] [id number]) OP Gait Assessment Gait Gait Assistance Required: Independent Assistive Devices Assistive Device None Gait Deviations General Gait Pattern Decreased Stride Length, Decreased Feet Clearance Comments Gait Comments wearing back brace Stair Climbing Evaluation Comments Stair Climbing Comments precaution of no walking on elevation at this time PT-OP-H Neuro Start: 10/03/23 16:35 Freq: Status: Active Protocol: Document 10/04/23 10:29 SAK (Rec: 10/04/23 13:21 [facility] [id number]) Sensation Evaluation Gross Sensation Gross Sensation WNL PT-OP-J Posture/Palpation/Skin Start: 10/03/23 16:35 Freq: Status: Active Protocol: Document 10/04/23 10:29 [facility] (Rec: 10/04/23 13:21 [facility] [id number]) Posture Evaluation Position Standing L-Spine Posture Flattened Palpation Assessment Location incisioni scar Palpation Findings Soft Tissue Tightness Palpation Details abdomen, lumbar spine, buttocks Skin Assessment Edema Assessment left foot, ankle, lower calf Edema Appearance Puffy PT-OP-K Range of Motion Start: 10/03/23 16:35 Freq: Status: Active Protocol: Document 10/04/23 10:29 SAK (Rec: 10/04/23 13:21 [facility] [id number]) Lumbar Spine Range of Motion Lumbar Spine Active Comments not tested due to recent surgery Hip Goniometric Range of Motion Hip ROM Limitations Comments mod decrease flexibility HS, quads, calves ronal Knee Goniometric Range of Motion Knee ronal Knee ROM WFL Yes Ankle and Foot Goniometric Range of Motion Ankle and Foot ronal Ankle/Foot ROM WFL No Dorsiflexion with Knee Flexed 5 Dorsiflexion with Knee Extended 0 PT-OP-L Special Tests Start: 10/03/23 16:35 Freq: Status: Active Protocol: Document 10/04/23 10:29 SAK (Rec: 10/04/23 13:21 SAK [id number]) Special Tests Lumbar Spine Special Tests Straight Leg Raise Test Results + HS tightness PT-OP-M Strength Start: 10/03/23 16:35 Freq: Status: Active Protocol: Document 10/04/23 10:29 SAK (Rec: 10/04/23 13:21 SAK [id number]) Trunk Strength Trunk Manual Muscle Testing Core Stabilization poor PT-OP-Q Treatments Start: 10/03/23 16:35 Freq: Status: Active Protocol: Document 03/02/24 11:36 SP (Rec: 03/02/24 12:27 SP [id number]) Cardio Equipment Bicycle (Upright) Duration (Minutes) 8 Resistance 14-18 Seat Position 7 Therapeutic Exercises Other Exercises Marely 3 Other Exercise Name standing side plank, the supine Marely curl up, quadruped Bird dog Side bilateral Equipment Used *03/02- trialed side plank on table- strain in LS Reps/Minutes 3x 1 min ronal, 10x, 5x Comments cued head up neutral side plank, TA fac and not lift high bird dog Manual Therapy Treatment Taping SI to T10 paraspinals Body Location SI to Thoracic Treatment Focus decreased muscle tension, pain Type of Tape KT Comments I strips ronal, X strips at area of pain (L3 level) and area of decreased tissue mobility scar tissue. PT-OP-R Modalities Start: 10/03/23 16:35 Freq: Status: Active Protocol: Document 01/10/24 10:30 SAK (Rec: 01/10/24 14:28 [facility] [id number]) Hot Pack/Cold Pack Treatment Hot Pack Location ronal lumbar spine Patient Position Sidelying Patient Tolerance Good Comments after manual, reports dec pain and stiffness PT-OP-T Assessment and Plan Start: 10/03/23 16:35 Freq: Status: Active Protocol: Document 03/02/24 11:36 SP (Rec: 03/02/24 12:27 SP [id number]) Physical Therapy Assessment Goals 3 Impairment gait Impairment patient unable to take walks for activity and exercise as previously 2-3 mi Short Term Goal (STG) Patient will be able to walk at least 1 mile without an increase in pain 11/20/23: reports inc pain after walkng 3/4 mile 12/21/23: limited to 1/2 mile STG Duration 11/20/23 Mcfp Goal (LTG) Patient will be able to walk at least 2 miles including incline without an increase in pain 02/08/2024 Patient ambulates 15 minutes outdoors on inclines and declines with pain increasing from 4/10 to 5/10 ( without device ) LTG Duration 04/09/24 2 Impairment activity tolerance Impairment Oswestry score 28% Short Term Goal (STG) Decrease Oswestry to no greater than 30% as measure of improved function and activity tolerance 11/09/23: min progress largely due to patient overdoing activity 12/21/23: increased to 42%, worse STG Duration 11/20/23 Mcfp Goal (LTG) Decrease Oswestry to no greater than 15% as measure of imroved function and activity tolerance 12/21/23: 02/08/2024 32% score end of session physical therapy LTG Duration 04/09/24 1 Impairment lumbar spine pain as high as 8 /10 Impairment LBP and ronal LE pain /, spikes to 8/10 at times 02/08/2024 Patient into session with 4/10 pain, increased to 5-6/10 end of session post ext 5-6/10 post bike and ambulation outdoors on inclines/declines 5/10 Short Term Goal (STG) Decrease pain by at least 50% with all usual activities 11/09/23: min progress due to patient overdoing at home 12/21/23: no significant change 02/20/24: pain ranged from 4-5/ 10 during PT today, no spikes, goal progress STG Duration 11/20/23 Wire Brush Maker Goal (LTG) Decrease pain by at least 75% with all usual activities LTG Duration 04/09/24 Assessment Summary Assessment Pt required cues and education on head and neutral LS during Marely BIG 3 review. Trialed true side plank today fro comparison and causes LS train which helped pt understanding modified incline standing side plank, slight further foot position helped provided more core fac benefit with out back irritating recruitiment reported. Good feedback response to Ktaping, cued flatten low back while donning Ktaping, reports improved feedback response for improving posture once in standing. Verbalized understanding if becomes irritant to remove. Physical Therapy Plan Frequency and Duration Frequency of Treatment 1x/Week Duration of treatment (weeks) 8 Plan of Care Start Date 02/08/24 Plan of Care End Date 04/09/24 Therapeutic Interventions Therapeutic Interventions Home Exercise Program,Manual Therapy,Neuromuscular Re- education,Patient/Caregiver Education,Self-Care/Home Management,Soft Tissue Mobilization,Taping, Therapeutic Activities, Therapeutic Exercises Modalities Electric Stimulation,Hot Packs ,Infrared Therapy Next Visit Focus/Plan Next Note Type Treatment Note Next Visit Plan Recheck Ktaping, reviewe HEP [place] BIG 3. POC: Continue PT with emphasis on core strengthening in all positions and with functional activities. Pain managmeent with modalities, manual therapy, KT tape as needed.
--- NOTE | 2024-03-15 16:35 | PT.OTN ---
Current Diagnoses Spondylolisthesis, lumbar region (03/15/24) Weakness (03/15/24) Physical Therapy Treatment Note PT-OP-A Visit Information Start: 10/03/23 16:35 Freq: Status: Active Protocol: Document 03/15/24 13:15 AB (Rec: 03/15/24 16:35 AB [id number]) Out-Patient Physical Therapy Visit Information Visit Information Visit Type Treatment Note Visit Start Time 15:19 Visit Stop Time 16:09 Visit Number 27 Number of [employer]ACE [employer]ATIONS Visits 0 Evaluation Information Evaluation Date 10/04/23 Precautions Precautions former R SI fusion PT-OP-B Current Condition Start: 10/03/23 16:35 Freq: Status: Active Protocol: Document 12/28/23 10:30 SAK (Rec: 12/28/23 11:20 SAK [id number]) Current Condition History of Current Condition Onset Date 6 weeks ago Current Complaints back pain, ronal leg pain History of Current Condition s/p lumbar spine surgery; 2 stage; cage insertion from anterior, and then L345 fusion second surgery. Had hematuria due to catheter going through urethral wall; will need surgery. Also reports left leg still swollen calf through the foot. Tried Trevor hose, not helpful. Pain level variable depending on Oxycodone and Methocarbomal; takes the edge off, trying to wean off. 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 Wearing back brace, using bone stimulatory 2 hours per day, walking level up to a mile but sometimes can't tolerate. Leg symptoms better, back pain continues at a high level; patient reports sites from robitic surgery. Hasn't yet taken any pain medication today. Tylenol doesn't do much. Still some tingling right leg, heel and foot. Prior history right SI fusion. Prior Treatments and Tests Tried heat, doesn't do much. Hasn't tried ice. Precautions : no walking on hills, no twisting, lifting, bending. Saw surgeon after 2 weeks, then goes back end of October. Future Testing and Treatments Planned as above PT-OP-C Subjective Start: 10/03/23 16:35 Freq: Status: Active Protocol: Document 03/15/24 13:15 AB (Rec: 03/15/24 16:35 AB [id number]) OP-PT Subjective Patient Comments Patient Comments Patient reports he has been at [facility] [place] and today, [place], estimates walking 2-3 miles a day, rates pain today 5/10 center of back and buttocks. PT-OP-G Mobility & Gait Start: 10/03/23 16:35 Freq: Status: Active Protocol: Document 10/04/23 10:29 [facility] (Rec: 10/04/23 13:21 [facility] [id number]) OP Gait Assessment Gait Gait Assistance Required: Independent Assistive Devices Assistive Device None Gait Deviations General Gait Pattern Decreased Stride Length, Decreased Feet Clearance Comments Gait Comments wearing back brace Stair Climbing Evaluation Comments Stair Climbing Comments precaution of no walking on elevation at this time PT-OP-H Neuro Start: 10/03/23 16:35 Freq: Status: Active Protocol: Document 10/04/23 10:29 [facility] (Rec: 10/04/23 13:21 [facility] [id number]) Sensation Evaluation Gross Sensation Gross Sensation WNL PT-OP-J Posture/Palpation/Skin Start: 10/03/23 16:35 Freq: Status: Active Protocol: Document 10/04/23 10:29 [facility] (Rec: 10/04/23 13:21 [facility] [id number]) Posture Evaluation Position Standing L-Spine Posture Flattened Palpation Assessment Location incisioni scar Palpation Findings Soft Tissue Tightness Palpation Details abdomen, lumbar spine, buttocks Skin Assessment Edema Assessment left foot, ankle, lower calf Edema Appearance Puffy PT-OP-K Range of Motion Start: 10/03/23 16:35 Freq: Status: Active Protocol: Document 10/04/23 10:29 [facility] (Rec: 10/04/23 13:21 [facility] [id number]) Lumbar Spine Range of Motion Lumbar Spine Active Comments not tested due to recent surgery Hip Goniometric Range of Motion Hip ROM Limitations Comments mod decrease flexibility HS, quads, calves ronal Knee Goniometric Range of Motion Knee ronal Knee ROM WFL Yes Ankle and Foot Goniometric Range of Motion Ankle and Foot ronal Ankle/Foot ROM WFL No Dorsiflexion with Knee Flexed 5 Dorsiflexion with Knee Extended 0 PT-OP-L Special Tests Start: 10/03/23 16:35 Freq: Status: Active Protocol: Document 10/04/23 10:29 [facility] (Rec: 10/04/23 13:21 [facility] [id number]) Special Tests Lumbar Spine Special Tests Straight Leg Raise Test Results + HS tightness PT-OP-M Strength Start: 10/03/23 16:35 Freq: Status: Active Protocol: Document 10/04/23 10:29 SAK (Rec: 10/04/23 13:21 SAK [id number]) Trunk Strength Trunk Manual Muscle Testing Core Stabilization poor PT-OP-Q Treatments Start: 10/03/23 16:35 Freq: Status: Active Protocol: Document 03/15/24 13:15 AB (Rec: 03/15/24 16:35 AB [id number]) Cardio Equipment Bicycle (Upright) Duration (Minutes) 9 Resistance 20 Seat Position 7 Therapeutic Exercises Supine Exercises piriformis stretch Side bilateral Reps/Minutes 60 seconds X 2 Sitting Exercises simulated kayaking Sitting Exercise Name movement UE's with and without trunk, distal movement, ( lateral tilt) Equipment Used 65 cm ball, wand, L1 TB Reps/Minutes 50 sec, one min then another minute post manual and tape Comments reported inc pain with trunk movement. Other Exercises Marely 3 Side bilateral Equipment Used 03/15 on elbow and knee, 20 sec, elbow and feet 8 sec Reps/Minutes side plank noted above, bird dog X 15 curl X7 Comments VC to lift shoulders and head to remain in line curl , plank hold to [place] Manual Therapy Treatment Soft Tissue Mobilization lumbar paraspinals Body Location bilateral and thoracic Mobilization Type Sustained Pressure Intensity/Depth Moderate Body Position Sidelying Taping SI to T10 paraspinals Body Location SI to Thoracic Treatment Focus decreased muscle tension, pain Type of Tape KT Comments I strips ronal, one cross horizontal strips at area of pain (L3 level) and area of decreased tissue mobility scar tissue. PT-OP-R Modalities Start: 10/03/23 16:35 Freq: Status: Active Protocol: Document 01/10/24 10:30 SAK (Rec: 01/10/24 14:28 SAK [id number]) Hot Pack/Cold Pack Treatment Hot Pack Location ronal lumbar spine Patient Position Sidelying Patient Tolerance Good Comments after manual, reports dec pain and stiffness PT-OP-T Assessment and Plan Start: 10/03/23 16:35 Freq: Status: Active Protocol: Document 03/15/24 13:15 AB (Rec: 03/15/24 16:35 AB [id number]) Physical Therapy Assessment Goals 3 Impairment gait Impairment patient unable to take walks for activity and exercise as previously 2-3 mi Short Term Goal (STG) Patient will be able to walk at least 1 mile without an increase in pain 11/20/23: reports inc pain after walkng 3/4 mile 12/21/23: limited to 1/2 mile STG Duration 11/20/23 [employer]er Goal (LTG) Patient will be able to walk at least 2 miles including incline without an increase in pain 02/08/2024 Patient ambulates 15 minutes outdoors on inclines and declines with pain increasing from 4/10 to 5/10 ( without device ) LTG Duration 04/09/24 2 Impairment activity tolerance Impairment Oswestry score 28% Short Term Goal (STG) Decrease Oswestry to no greater than 30% as measure of improved function and activity tolerance 11/09/23: min progress largely due to patient overdoing activity 12/21/23: increased to 42%, worse STG Duration 11/20/23 [facility] Goal (LTG) Decrease Oswestry to no greater than 15% as measure of imroved function and activity tolerance 12/21/23: 02/08/2024 32% score end of session physical therapy LTG Duration 04/09/24 1 Impairment lumbar spine pain as high as 8 /10 Impairment LBP and ronal LE pain /, spikes to 8/10 at times 02/08/2024 Patient into session with 4/10 pain, increased to 5-6/10 end of session post ext 5-6/10 post bike and ambulation outdoors on inclines/declines 5/10 Short Term Goal (STG) Decrease pain by at least 50% with all usual activities 11/09/23: min progress due to patient overdoing at home 12/21/23: no significant change 02/20/24: pain ranged from 4-5/ 10 during PT today, no spikes, goal progress STG Duration 11/20/23 Cd [employer] Goal (LTG) Decrease pain by at least 75% with all usual activities LTG Duration 04/09/24 Assessment Summary Assessment Patient rating pain almost nothing end of session, and reports Kayaking exercise much better post manual and tape. Physical Therapy Plan Frequency and Duration Frequency of Treatment 1x/Week Duration of treatment (weeks) 8 Plan of Care Start Date 02/08/24 Plan of Care End Date 11/18/24 Next Visit Focus/Plan Next Note Type Treatment Note Next Visit Plan Continue PT, continue review [place] big 3 for best performance, revisit simulated kayaking to problem solve very gentle.
--- NOTE | 2024-03-22 10:40 | PT.OTN ---
Current Diagnoses Spondylolisthesis, lumbar region (03/22/24) Weakness (03/22/24) Physical Therapy Treatment Note PT-OP-A Visit Information Start: 10/03/23 16:35 Freq: Status: Active Protocol: Document 03/22/24 08:12 AB (Rec: 03/22/24 10:40 AB [id number]) Out-Patient Physical Therapy Visit Information Visit Information Visit Type Treatment Note Visit Note Access Code: [email or web address] Visit Start Time 09:48 Visit Stop Time 10:34 Visit Number 28 Number of ON AIR DIRECTOR Visits 2 Evaluation Information Evaluation Date 10/04/23 Precautions Precautions former R SI fusion PT-OP-B Current Condition Start: 10/03/23 16:35 Freq: Status: Active Protocol: Document 12/28/23 10:30 SAK (Rec: 12/28/23 11:20 SAK [id number]) Current Condition History of Current Condition Onset Date 6 weeks ago Current Complaints back pain, ronal leg pain History of Current Condition s/p lumbar spine surgery; 2 stage; cage insertion from anterior, and then L345 fusion second surgery. Had hematuria due to catheter going through urethral wall; will need surgery. Also reports left leg still swollen calf through the foot. Tried Trevor hose, not helpful. Pain level variable depending on Oxycodone and Methocarbomal; takes the edge off, trying to wean off. 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 Wearing back brace, using bone stimulatory 2 hours per day, walking level up to a mile but sometimes can't tolerate. Leg symptoms better, back pain continues at a high level; patient reports sites from robitic surgery. Hasn't yet taken any pain medication today. Tylenol doesn't do much. Still some tingling right leg, heel and foot. Prior history right SI fusion. Prior Treatments and Tests Tried heat, doesn't do much. Hasn't tried ice. Precautions : no walking on hills, no twisting, lifting, bending. Saw surgeon after 2 weeks, then goes back end of October. Future Testing and Treatments Planned as above PT-OP-C Subjective Start: 10/03/23 16:35 Freq: Status: Active Protocol: Document 03/22/24 08:12 AB (Rec: 03/22/24 10:40 AB [id number]) OP-PT Subjective Patient Comments Patient Comments Patient rates back pain 4/10 start of session. Patient reports he does not have tape on and would like tape. Patient reports he walked [employer] 2 miles without soreness post, but didn't do the big incline. Patient reports the [place] 3 exercises are ok on the back, but aggravates the T 12 area. PT-OP-G Mobility & Gait Start: 10/03/23 16:35 Freq: Status: Active Protocol: Document 10/04/23 10:29 [facility] (Rec: 10/04/23 13:21 [facility] [id number]) OP Gait Assessment Gait Gait Assistance Required: Independent Assistive Devices Assistive Device None Gait Deviations General Gait Pattern Decreased Stride Length, Decreased Feet Clearance Comments Gait Comments wearing back brace Stair Climbing Evaluation Comments Stair Climbing Comments precaution of no walking on elevation at this time PT-OP-H Neuro Start: 10/03/23 16:35 Freq: Status: Active Protocol: Document 10/04/23 10:29 [facility] (Rec: 10/04/23 13:21 [facility] [id number]) Sensation Evaluation Gross Sensation Gross Sensation WNL PT-OP-J Posture/Palpation/Skin Start: 10/03/23 16:35 Freq: Status: Active Protocol: Document 10/04/23 10:29 [facility] (Rec: 10/04/23 13:21 [facility] [id number]) Posture Evaluation Position Standing L-Spine Posture Flattened Palpation Assessment Location incisioni scar Palpation Findings Soft Tissue Tightness Palpation Details abdomen, lumbar spine, buttocks Skin Assessment Edema Assessment left foot, ankle, lower calf Edema Appearance Puffy PT-OP-K Range of Motion Start: 10/03/23 16:35 Freq: Status: Active Protocol: Document 10/04/23 10:29 [facility] (Rec: 10/04/23 13:21 [facility] [id number]) Lumbar Spine Range of Motion Lumbar Spine Active Comments not tested due to recent surgery Hip Goniometric Range of Motion Hip ROM Limitations Comments mod decrease flexibility HS, quads, calves ronal Knee Goniometric Range of Motion Knee ronal Knee ROM WFL Yes Ankle and Foot Goniometric Range of Motion Ankle and Foot ronal Ankle/Foot ROM WFL No Dorsiflexion with Knee Flexed 5 Dorsiflexion with Knee Extended 0 PT-OP-L Special Tests Start: 10/03/23 16:35 Freq: Status: Active Protocol: Document 10/04/23 10:29 SAK (Rec: 10/04/23 13:21 SAK [id number]) Special Tests Lumbar Spine Special Tests Straight Leg Raise Test Results + HS tightness PT-OP-M Strength Start: 10/03/23 16:35 Freq: Status: Active Protocol: Document 10/04/23 10:29 SAK (Rec: 10/04/23 13:21 SAK [id number]) Trunk Strength Trunk Manual Muscle Testing Core Stabilization poor PT-OP-Q Treatments Start: 10/03/23 16:35 Freq: Status: Active Protocol: Document 03/22/24 08:12 AB (Rec: 03/22/24 10:40 AB [id number]) Therapeutic Exercises Supine Exercises Breathing from diaphragm in modified restortive poste Reps/Minutes 2-3 min Sitting Exercises simulated kayaking Sitting Exercise Name movement UE's with and without trunk, distal movement, ( lateral tilt) Equipment Used 65 cm ball, wand, L1 TB Reps/Minutes 50 sec, one min then another minute post manual and tape Comments 2 min Standing Exercises Pallof press Standing Exercise Name standing the X15 seated on green burundian ball Resistance level one band Equipment Used HEP Reps/Minutes X15 Comments Verbal cues for hip hinge Other Exercises Marely 3 Side bilateral Equipment Used 03/15 on elbow and knee, 27 sec, Reps/Minutes side plank noted above, bird dog X 13 curl X20 Therapeutic Activity Therapeutic Activity inclines declines Comments Reviewd with visual, verbal cues and spine model slight flexion/crease at hips to position body during inclines and declines walking Manual Therapy Treatment Taping SI to T10 paraspinals Body Location SI to Thoracic Treatment Focus decreased muscle tension, pain Type of Tape KT Comments I strips ronal, one cross horizontal strips at area of pain (L3 level) and area of decreased tissue mobility scar tissue. PT-OP-R Modalities Start: 10/03/23 16:35 Freq: Status: Active Protocol: Document 01/10/24 10:30 SAK (Rec: 01/10/24 14:28 SAK [id number]) Hot Pack/Cold Pack Treatment Hot Pack Location ronal lumbar spine Patient Position Sidelying Patient Tolerance Good Comments after manual, reports dec pain and stiffness PT-OP-T Assessment and Plan Start: 10/03/23 16:35 Freq: Status: Active Protocol: Document 03/22/24 08:12 AB (Rec: 03/22/24 10:40 AB [id number]) Physical Therapy Assessment Goals 3 Impairment gait Impairment patient unable to take walks for activity and exercise as previously 2-3 mi Short Term Goal (STG) Patient will be able to walk at least 1 mile without an increase in pain 11/20/23: reports inc pain after walkng 3/4 mile 12/21/23: limited to 1/2 mile STG Duration 11/20/23 [employer] Goal (LTG) Patient will be able to walk at least 2 miles including incline without an increase in pain 02/08/2024 Patient ambulates 15 minutes outdoors on inclines and declines with pain increasing from 4/10 to 5/10 ( without device ) LTG Duration 04/09/24 2 Impairment activity tolerance Impairment Oswestry score 28% Short Term Goal (STG) Decrease Oswestry to no greater than 30% as measure of improved function and activity tolerance 11/09/23: min progress largely due to patient overdoing activity 12/21/23: increased to 42%, worse STG Duration 11/20/23 [facility] Goal (LTG) Decrease Oswestry to no greater than 15% as measure of imroved function and activity tolerance 12/21/23: 02/08/2024 32% score end of session physical therapy LTG Duration 04/09/24 1 Impairment lumbar spine pain as high as 8 /10 Impairment LBP and ronal LE pain /10, spikes to 8/10 at times 02/08/2024 Patient into session with 4/10 pain, increased to 5-6/10 end of session post ext 5-6/10 post bike and ambulation outdoors on inclines/declines 5/10 Short Term Goal (STG) Decrease pain by at least 50% with all usual activities 11/09/23: min progress due to patient overdoing at home 12/21/23: no significant change 02/20/24: pain ranged from 4-5/ 10 during PT today, no spikes, goal progress STG Duration 11/20/23 [facility] Goal (LTG) Decrease pain by at least 75% with all usual activities LTG Duration 04/09/24 Assessment Summary Assessment All ex except bike performed post taping.Alfredo rates pain 1/10 low back/T 12 area end of session Physical Therapy Plan Frequency and Duration Frequency of Treatment 1x/Week Duration of treatment (weeks) 8 Plan of Care Start Date 02/08/24 Plan of Care End Date 04/09/24 Next Visit Focus/Plan Next Note Type Treatment Note Next Visit Plan Continue PT, continue review [place] big 3 for best performance, revisit simulated kayaking to problem solve very gentle.
--- NOTE | 2024-04-04 16:35 | PT.OTN ---
Current Diagnoses Spondylolisthesis, lumbar region (04/04/24) Weakness (04/04/24) Physical Therapy Treatment Note PT-OP-A Visit Information Start: 10/03/23 16:35 Freq: Status: Active Protocol: Document 04/04/24 14:34 SAK (Rec: 04/04/24 15:24 [facility] [id number]) Out-Patient Physical Therapy Visit Information Visit Information Visit Type Treatment Note Visit Start Time 14:36 Visit Stop Time 15:17 Visit Number 29 Number of 3D DESIGNER Visits 0 Evaluation Information Evaluation Date 10/04/23 Precautions Precautions former R SI fusion PT-OP-B Current Condition Start: 10/03/23 16:35 Freq: Status: Active Protocol: Document 12/28/23 10:30 SAK (Rec: 12/28/23 11:20 SAK [id number]) Current Condition History of Current Condition Onset Date 6 weeks ago Current Complaints back pain, ronal leg pain History of Current Condition s/p lumbar spine surgery; 2 stage; cage insertion from anterior, and then L345 fusion second surgery. Had hematuria due to catheter going through urethral wall; will need surgery. Also reports left leg still swollen calf through the foot. Tried Trevor hose, not helpful. Pain level variable depending on Oxycodone and Methocarbomal; takes the edge off, trying to wean off. 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 Wearing back brace, using bone stimulatory 2 hours per day, walking level up to a mile but sometimes can't tolerate. Leg symptoms better, back pain continues at a high level; patient reports sites from robitic surgery. Hasn't yet taken any pain medication today. Tylenol doesn't do much. Still some tingling right leg, heel and foot. Prior history right SI fusion. Prior Treatments and Tests Tried heat, doesn't do much. Hasn't tried ice. Precautions : no walking on hills, no twisting, lifting, bending. Saw surgeon after 2 weeks, then goes back end of October. Future Testing and Treatments Planned as above PT-OP-C Subjective Start: 10/03/23 16:35 Freq: Status: Active Protocol: Document 04/04/24 14:34 SAK (Rec: 04/04/24 15:24 [facility] [id number]) OP-PT Subjective Patient Comments Patient Comments Sore from walking, takes a couple days to recover back pain. Has gotten a prescription for neck pain, needs to be discharged from PT for back pain. Can walk 1 1/ 2 miles on level surfaces before getting sore PT-OP-G Mobility & Gait Start: 10/03/23 16:35 Freq: Status: Active Protocol: Document 10/04/23 10:29 SAK (Rec: 10/04/23 13:21 [facility] [id number]) OP Gait Assessment Gait Gait Assistance Required: Independent Assistive Devices Assistive Device None Gait Deviations General Gait Pattern Decreased Stride Length, Decreased Feet Clearance Comments Gait Comments wearing back brace Stair Climbing Evaluation Comments Stair Climbing Comments precaution of no walking on elevation at this time PT-OP-H Neuro Start: 10/03/23 16:35 Freq: Status: Active Protocol: Document 10/04/23 10:29 SAK (Rec: 10/04/23 13:21 [facility] [id number]) Sensation Evaluation Gross Sensation Gross Sensation WNL PT-OP-J Posture/Palpation/Skin Start: 10/03/23 16:35 Freq: Status: Active Protocol: Document 10/04/23 10:29 SAK (Rec: 10/04/23 13:21 [facility] [id number]) Posture Evaluation Position Standing L-Spine Posture Flattened Palpation Assessment Location incisioni scar Palpation Findings Soft Tissue Tightness Palpation Details abdomen, lumbar spine, buttocks Skin Assessment Edema Assessment left foot, ankle, lower calf Edema Appearance Puffy PT-OP-K Range of Motion Start: 10/03/23 16:35 Freq: Status: Active Protocol: Document 10/04/23 10:29 SAK (Rec: 10/04/23 13:21 [facility] [id number]) Lumbar Spine Range of Motion Lumbar Spine Active Comments not tested due to recent surgery Hip Goniometric Range of Motion Hip ROM Limitations Comments mod decrease flexibility HS, quads, calves ronal Knee Goniometric Range of Motion Knee ronal Knee ROM WFL Yes Ankle and Foot Goniometric Range of Motion Ankle and Foot ronal Ankle/Foot ROM WFL No Dorsiflexion with Knee Flexed 5 Dorsiflexion with Knee Extended 0 PT-OP-L Special Tests Start: 10/03/23 16:35 Freq: Status: Active Protocol: Document 10/04/23 10:29 SAK (Rec: 10/04/23 13:21 [facility] [id number]) Special Tests Lumbar Spine Special Tests Straight Leg Raise Test Results + HS tightness PT-OP-M Strength Start: 10/03/23 16:35 Freq: Status: Active Protocol: Document 10/04/23 10:29 [facility] (Rec: 10/04/23 13:21 [facility] [id number]) Trunk Strength Trunk Manual Muscle Testing Core Stabilization poor PT-OP-Q Treatments Start: 10/03/23 16:35 Freq: Status: Active Protocol: Document 04/04/24 14:34 [facility] (Rec: 04/04/24 15:24 [facility] [id number]) Cardio Equipment Recumbent Bicycle Duration (Minutes) 5 Resistance 15-25 Seat Position 6 Bicycle (Upright) Duration (Minutes) 9 Resistance 20 Seat Position 7 Therapeutic Exercises Other Exercises Justice 3 Side bilateral Manual Therapy Treatment Soft Tissue Mobilization lumbar paraspinals Body Location bilateral and thoracic Mobilization Type Sustained Pressure Intensity/Depth Moderate Body Position Sidelying Taping SI to T10 paraspinals Body Location SI to Thoracic Treatment Focus decreased muscle tension, pain Type of Tape KT Comments I strips ronal, one cross horizontal strips at area of pain (L3 level) and area of decreased tissue mobility scar tissue. PT-OP-R Modalities Start: 10/03/23 16:35 Freq: Status: Active Protocol: Document 01/10/24 10:30 [facility] (Rec: 01/10/24 14:28 [facility] [id number]) Hot Pack/Cold Pack Treatment Hot Pack Location ronal lumbar spine Patient Position Sidelying Patient Tolerance Good Comments after manual, reports dec pain and stiffness PT-OP-T Assessment and Plan Start: 10/03/23 16:35 Freq: Status: Active Protocol: Document 04/04/24 14:34 [facility] (Rec: 04/04/24 15:24 [facility] [id number]) Physical Therapy Assessment Goals 3 Impairment gait Impairment patient unable to take walks for activity and exercise as previously 2-3 mi Short Term Goal (STG) Patient will be able to walk at least 1 mile without an increase in pain 11/20/23: reports inc pain after walkng 3/4 mile 12/21/23: limited to 1/2 mile 04/04/24: now can do 1 1/2 miles on level surfaces STG Duration goal met Half-Way Goal (LTG) Patient will be able to walk at least 2 miles including incline without an increase in pain 02/08/2024 Patient ambulates 15 minutes outdoors on inclines and declines with pain increasing from 4/10 to 5/10 ( without device ) 04/04/24: as above 1.5 miles on level tolerated, improved LTG Duration 04/09/24 2 Impairment activity tolerance Impairment Oswestry score 28% Short Term Goal (STG) Decrease Oswestry to no greater than 30% as measure of improved function and activity tolerance 11/09/23: min progress largely due to patient overdoing activity 12/21/23: increased to 42%, worse STG Duration 11/20/23 Half-Way Goal (LTG) Decrease Oswestry to no greater than 15% as measure of imroved function and activity tolerance 12/21/23: 02/08/2024 32% score end of session physical therapy 04/04/24: 38%, not met LTG Duration 04/09/24 1 Impairment lumbar spine pain as high as 8 /10 Impairment LBP and ronal LE pain /10, spikes to 8/10 at times 02/08/2024 Patient into session with 4/10 pain, increased to 5-6/10 end of session post ext 5-6/10 post bike and ambulation outdoors on inclines/declines 5/10 Short Term Goal (STG) Decrease pain by at least 50% with all usual activities 11/09/23: min progress due to patient overdoing at home 12/21/23: no significant change 02/20/24: pain ranged from 4-5/ 10 during PT today, no spikes, goal progress 04/04/24: not met, pain as high as 6/10. STG Duration 11/20/23 Half-Way Goal (LTG) Decrease pain by at least 75% with all usual activities LTG Duration 04/09/24 Assessment Summary Assessment Alfredo overall is slowly improving, symptoms easily exacerbated with activity, tends to push too hard. Is independent with his HEP. Would like to be discharged for PT for his back as he now has a prescription to address neck pain. Trial recumbant ex bike tolerated well. Physical Therapy Plan Discharge Physical Therapy Discharge Comments [facility] for neck
== END 2024-04-13 10:49 | disposition home or self-care (01) ==
LOC: PHYS 14:30
PROVIDERS: Family Provider Family Medicine; PCP Family Medicine; Referring Provider Neurological Surgery; Visit Provider Neurological Surgery
DX: M43.16 Spondylolisthesis, lumbar region (principal); R53.1 Weakness
CPT/HCPCS: 97014; 97110; 97140; 97162; 97530; 97535; G0283

== ENCOUNTER → 2024-04-17 15:12 | Outpatient (CLI) | payer MEDICARE, OTHER, SELFPAY ==
[2024-01-12 02:53] VITALS: BMI 26.4
== END ==
PROVIDERS: Family Provider Family Medicine; PCP Family Medicine; Referring Provider Urology; Visit Provider Urology
DX: N40.1 Benign prostatic hyperplasia with lower urinary tract symptoms (principal)
CPT/HCPCS: 87086

== ENCOUNTER → 2024-05-02 13:42 | Outpatient (CLI) | payer MEDICARE, OTHER, SELFPAY ==
[2024-01-12 02:53] VITALS: BMI 26.4
[2024-05-02 14:33] LABS: Appearance Urine UA CLEAR; Bilirubin Urine UA NEGATIVE (NEGATIVE); Glucose Urine UA NEGATIVE (Negative); Ketones Urine UA NEGATIVE (NEGATIVE); Leukocyte Esterase Urine UA NEGATIVE (NEGATIVE); Nitrite Urine UA NEGATIVE (Negative); Occult Blood Urine UA NEGATIVE (Negative); Protein Urine UA NEGATIVE (Negative); Urobilinogen Urine UA 0.2 E.U./dL (0.2); pH Urine UA 6.5 (4.5-8.0)
[2024-05-02 14:37] LABS: Color Urine UA ORANGE
[2024-05-02 14:40] LABS: Bacteria Urine Moderate (10-30); Mucus Urine 1+ (Negative); RBC Urine 0-1/HPF (0-5/HPF); Squamous Epithelial Cell Urine None Seen (0-5/HPF); Urine Volume 10mL (spun); WBC Urine 0-1/HPF (0-5/HPF)
[2024-05-02 14:41] LABS: Culture Indicated Urine Cult Not Indicated
== END ==
PROVIDERS: Family Provider Family Medicine; PCP Family Medicine; Visit Provider Urology
DX: N39.0 Urinary tract infection, site not specified (principal)
CPT/HCPCS: 81001

== ENCOUNTER → 2024-05-03 12:13 | Outpatient (CLI) | payer MEDICARE, OTHER, SELFPAY ==
[2024-01-12 02:53] VITALS: BMI 26.4
--- NOTE | 2024-05-03 12:14 | DI.MRI.S_ITS ---
PROCEDURE: MR LUMBAR SPINE WO CON INDICATIONS: Right L5/S1 radic s/p fusion TECHNIQUE: Noncontrast sagittal T1 spin echo and T2 fast echo, sagittal STIR, and T2 fast spin echo through the lumbar spine. In cases with scoliosis, additional coronal T2 fast spin echo may be performed. COMPARISON: [facility], , MR LUMBAR SPINE WO CON, 02/24/2023, 10:55. FINDINGS: Image quality: Excellent. Alignment and Curvature: There has been resolution of the prior noted anterolisthesis of L4 on L5 with interval extension of posterior fusion with interconnecting rods and transpedicular screws through L4 and L5. Bone Marrow: Marrow is of normal overall signal. No acute vertebral body compression fractures. Chronic compression deformities of T12 and L1 unchanged. Spinal Cord: Conus medullaris terminates at the L1 level. Visualized cord demonstrates normal signal and size. Paraspinous Soft Tissues: Extensive scarring posterior soft tissues from L2 through L5 again noted.. T12-L1: Some facet degenerative changes without significant central spinal or neural foraminal stenosis. L1-L2: Bilateral facet degenerative change. No significant central spinal or neural foraminal stenosis.. L2-L3: Moderate generalized disc bulge. Facet degenerative changes. Laminectomy changes. Moderate bilateral neural foraminal stenosis similar in appearance to the prior exam. Central canal patent with mild central spinal stenosis unchanged. L3-L4: Circumferential disc bulge. Post spinal fusion with transpedicular screws at L3 and L4. No significant neural foraminal stenosis or central spinal stenosis. L4-L5: Soft tissue thickening posteriorly encroaching into the posterior central canal at site of laminectomy resulting in some mild to moderate central spinal stenosis with effacement of the right lateral recess unchanged from the prior exam. Moderate to severe bilateral neural foraminal stenosis unchanged. L5-S1: Moderate disc bulge, moderate facet hypertrophy. Mild bilateral neural foraminal stenosis. No significant central canal stenosis. Similar findings. Prior fusion right sacroiliac joint. IMPRESSION: 1. Interval extension of posterior fused elements down through L5 with transpedicular screws and interconnecting rods now into L5. Improvement in prior anterolisthesis of L4 on L5 which is now resolved. 2. 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 Findings are overall stable from the prior exam. Dictated by: Darian Livingston M.D. on 05/03/2024 at 15:02 Approved by: Darian Livingston M.D. on 05/03/2024 at 15:18
== END ==
PROVIDERS: Family Provider Family Medicine; PCP Family Medicine; Referring Provider Physical Medicine & Rehabilitation; Visit Provider Physical Medicine & Rehabilitation
DX: M47.26 Other spondylosis with radiculopathy, lumbar region (principal); M47.27 Other spondylosis with radiculopathy, lumbosacral region; M51.16 Intervertebral disc disorders with radiculopathy, lumbar region; M51.17 Intervertebral disc disorders with radiculopathy, lumbosacral region; M48.061 Spinal stenosis, lumbar region without neurogenic claudication; M48.07 Spinal stenosis, lumbosacral region; Z98.1 Arthrodesis status
CPT/HCPCS: 72148

== ENCOUNTER → 2024-05-18 16:25 | Outpatient (CLI) | payer MEDICARE, OTHER, SELFPAY ==
[2024-01-12 02:53] VITALS: BMI 26.4
--- NOTE | 2024-05-18 16:28 | DI.RAD.S_ITS ---
PROCEDURE: XR CHEST 2V INDICATIONS: cough, pna TECHNIQUE: 2 views of the chest were acquired. COMPARISON: [facility], CR, XR CHEST 1V, 01/11/2024, 22:00. [facility], CR, XR CHEST 1V, 12/15/2022, 14:51. FINDINGS: Surgical changes and devices: None. Lungs and pleura: Lungs are clear on the left but there is alveolar consolidation that is moderately severe at the right lower lobe and there appears to be a large subpulmonic pleural effusion. No pleural effusions or pneumothorax. Mediastinum: Mediastinal contours are normal. Heart size is normal. Bones and chest wall: No suspicious bony abnormalities. Soft tissues appear unremarkable. IMPRESSION: Dense pneumonia right lower lobe with associated large subpulmonic pleural effusion. Dictated by: Javier Chaudhry M.D. on 05/18/2024 at 16:49 Approved by: Javier Chaudhry M.D. on 05/18/2024 at 16:50
[2024-05-18 16:59] LABS: Add Manual Diff / Slide Review NO; Basophils Absolute Auto 0 /uL (0-100); Basophils Percent Auto 0.4 % (0-2); Eosinophils Absolute Auto 100 /uL (0-450); Eosinophils Percent Auto 1.6 % (2-4); Hematocrit 43.4 % (41-53); Hemoglobin 14.8 g/dL (13.5-17.5); Lymphocytes Absolute Auto 1000 /uL (1100-4500); Lymphocytes Percent Auto 14.8 % (25-40); Mean Corpuscular HGB Conc 34.1 % (30-36); Mean Corpuscular Hemoglobin 30.7 PG (26-34); Monocytes Absolute Auto 800 /uL (0-900); Neutrophils Absolute Auto 5100 /uL (1500-7000); Neutrophils Percent Auto 72.2 % (50-75); Platelet Count 165 X10^3/uL (150-400); Red Blood Cell Count 4.82 X10^6/uL (4.5-5.9); Red Cell Distribution Width 14.3 % (11.6-14.8)
[2024-05-18 17:09] LABS: Alanine Aminotransferase 31 IU/L (<50); Albumin 4.2 g/dL (3.5-5.0); Albumin Globulin Ratio 1.2 (1.0-2.8); Alkaline Phosphatase 142 U/L (38-126); Aspartate Aminotransferase 46 IU/L (17-59); BUN Creatinine Ratio 17.4 (6-22); Bilirubin Total 0.7 mg/dL (0.2-1.3); Blood Urea Nitrogen 16 mg/dL (9-20); Calcium 9.3 mg/dL (8.4-10.2); Carbon Dioxide 27 mmol/L (22-32); Chloride 101 mmol/L (98-107); Estimated Glomerular Filt Rate > 60 mL/min (>60); Globulin 3.5 g/dL (1.7-4.1); Glucose 98 mg/dL (80-110); HEMOLYSIS < 15 (0-50); Potassium 4.6 mmol/L (3.4-5.1); Sodium 134 mmol/L (137-145); Total Protein 7.7 g/dL (6.3-8.2)
== END ==
PROVIDERS: Family Provider Family Medicine; PCP Family Medicine; Referring Provider Family Medicine; Visit Provider Family Medicine
DX: J18.9 Pneumonia, unspecified organism (principal); J90 Pleural effusion, not elsewhere classified
CPT/HCPCS: 36415; 71046; 80053; 85025

== ENCOUNTER 2024-05-18 19:06 | Emergency (ER) | payer MEDICARE, OTHER, SELFPAY ==
[2024-01-12 02:53] VITALS: BMI 26.4
[2024-05-18 19:25] VITALS: BP 147/79; PULSE 68; RESP 18; TEMP 36.8; O2SAT 97; BMI 27.1
--- NOTE | 2024-05-18 21:40 | ED_ITS ---
HPI - General Adult General Chief complaint: Shortness of Breath/Dyspnea Stated complaint: sent by Dr Garcia fluid in rt lung Time Seen by Provider: 05/18/24 20:28 Source: patient Mode of arrival: Family Vehicle History of Present Illness HPI narrative: Patient was an 79-year-old male. Here for evaluation of fluid in his right lung. Patient's history is significant for recently being admitted to an outside facility for several days secondary to pneumonia/sepsis. Received IV antibiotics. Was sent home on antibiotics. Completed the course of these antibiotics. Did follow up with his primary doctor and was feeling well. Started to have increasing shortness of breath on exertion. Saw his primary doctor today. Had labs performed. Relatively unremarkable to include no leukocytosis. Also had a chest x-ray. He was given a prescription for azithromycin and amoxicillin by his primary doctor today. He was taken 1 dose of the amoxicillin. He was contacted by his primary doctor to come to the emergency department because of fluid on his right lung. The symptoms he presents with today have been present for the past several days. He was short of breath with exertion. No fevers. No productive cough. Related Data Home Medications Medication Instructions Recorded Confirmed aspirin 81 mg tablet,delayed 81 mg PO DAILY 01/13/23 05/18/24 release (Adult Low Dose Aspirin) ezetimibe 10 mg tablet 10 mg PO DAILY 01/13/23 05/18/24 omega-3 acid ethyl esters 1 cap PO DAILY 01/13/23 05/18/24 rosuvastatin 40 mg tablet 40 mg PO DAILY 06/29/23 05/18/24 methocarbamol 500 mg tablet 500 mg PO BID 04/11/24 05/18/24 zonisamide 25 mg capsule 25 mg PO DAILY 04/11/24 05/18/24 omeprazole 20 mg capsule,delayed 20 mg PO DAILY 04/25/24 05/18/24 release melatonin 3 mg PO BEDTIME sleep 05/04/24 05/18/24 Previous Rx's Medication Instructions Recorded naratriptan 2.5 mg tablet See Rx Instructions .Route 04/08/23 .COMPLEX #27 tabs tramadol 50 mg tablet See Rx Instructions .Route 04/08/23 .COMPLEX #30 tabs Disabled parking permit #1 ea 09/13/23 sildenafil 100 mg tablet 100 mg PO DAILY PRN sexual 01/02/24 activity #10 tabs albuterol sulfate 90 mcg/actuation 2 puff inhalation Q6H PRN 01/15/24 aerosol inhaler shortness of breath or wheezing #8.5 grams hydrocodone 5 mg-acetaminophen 325 1 tab PO Q8H PRN pain #30 tabs 01/25/24 mg tablet pregabalin 200 mg capsule (Lyrica) 200 mg PO BID #180 caps 03/02/24 amoxicillin 500 mg tablet 1,000 mg (2 x 500 mg) PO BID 5 05/18/24 days #20 tabs azithromycin 250 mg tablet See Rx Instructions PO .COMPLEX 5 05/18/24 days #6 tabs levothyroxine 75 mcg tablet 75 mcg PO DAILY #90 tabs 05/18/24 Allergies Allergy/AdvReac Type Severity Reaction Status Date / Time clopidogrel [From Plavix] Allergy Verified 05/18/24 19:29 tizanidine [From Zanaflex] Allergy Verified 05/18/24 19:29 honey AdvReac Gastrointestinal Verified 05/18/24 19:29 Upset Review of Systems Review of Systems ROS Unobtainable: All systems reviewed & are unremarkable except as noted in HPI and below Patient History Medical History Pleural effusion, right ZACH (stress urinary incontinence), male BPH NOS w ur obs/LUTS Urethral false passage Headache, chronic migraine without aura Spondylolisthesis at L4-L5 level Cervical fusion syndrome Lung nodule Encounter for initial annual wellness visit (AWV) in Medicare patient Hypothyroidism Fever Cough Somatic dysfunction of lower extremity Stiffness of finger joint of right hand Removal of staple Sacral region somatic dysfunction Pelvic somatic dysfunction Scalp laceration Erectile dysfunction Segmental and somatic dysfunction of abdomen and other regions Rib pain on right side Chronic right shoulder pain Segmental and somatic dysfunction of rib cage Lumbar region somatic dysfunction Thoracic region somatic dysfunction Cervical somatic dysfunction Cranial somatic dysfunction Vasculogenic erectile dysfunction Post-void dribbling Lower urinary tract symptoms (LUTS) Actinic keratosis Sleep apnea (~2014) Migraines (~1995) Headache (~1995) Shoulder pain (~1999) Fractures (~1983) Carpal tunnel syndrome (~2014) Ankle pain (~2001) Herpes (~1995) Tinnitus (~2009) Hearing loss History of urinary incontinence (~2019) Skin cancer (~2012) Melanoma (~2009) Chronic neck and back pain Sciatic pain GERD (gastroesophageal reflux disease) (~2011) Hypothyroidism (acquired) Fibromyalgia (~2014) 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, with status migrainosus Surgical History S/P insertion of spinal cord stimulator S/P lumbar spinal fusion Anesthesia Pyloric stenosis (~194) History of fusion of cervical spine History of heart artery stent (~2012) S/P TURP (status post transurethral resection of prostate) History of hernia repair History of laminectomy (~2003) History of fusion of cervical spine (~1995) History of carpal tunnel surgery History of lumbar fusion (~2000) Family History Father CAD (coronary artery disease) Diabetes mellitus History of heart disease Hypertension Congestive heart failure Mother Congestive heart failure Sister Cancer Hypertension Hyperlipidemia Social History household members: friend(s) Smoking Status: Never smoker Smoking Status: Never smoker alcohol intake frequency: 0-2 drinks per day Exam Initial Vital Signs Initial Vital Signs: Vital Signs Temperature 98.2 F 05/18/24 19:25 Pulse Rate 68 05/18/24 19:25 Respiratory Rate 18 05/18/24 19:25 Blood Pressure 147/79 H 05/18/24 19:25 Pulse Oximetry 97 05/18/24 19:25 Oxygen Delivery Method Room Air 05/18/24 19:25 Const General: cooperative and comfortable Resp Effort & Inspection: normal respiratory effort, no cough and not tachypneic Cardio Rate: regular rate Skin General: no rashes or lesions noted Neuro General: patient alert, patient awake and moves all extremities Extrem General: No edema Course Orders Ordered: ED Orders 05/18/24 21:41 CT chest w con Stat Vital Signs Vital signs: Vital Signs - 8 hr 05/18/24 23:12 Pulse Rate 68 Respiratory Rate 16 Blood Pressure 170/86 H Pulse Oximetry 94 Oxygen Delivery Method Room Air Medical Decision Making Medical Records Medical records reviewed: Yes I reviewed the patient's medical records. Imaging Data CT scan - chest: Radiologist's Impression: PROCEDURE: CT CHEST W CON INDICATIONS: Pneumonia versus empyema TECHNIQUE: After the administration of intravenous contrast, 5 mm thick sections acquired from the pulmonary apices to the posterior costophrenic angles. 1 mm axial lung, 5 mm thick coronal and sagittal reformats and 7 mm axial MIP were acquired. For radiation dose reduction, the following was used: automated exposure control, adjustment of mA and/or kV according to patient size. COMPARISON: [facility], CR, XR CHEST 2V, 05/18/2024, 16:32. [facility], CT, CT CHEST WO CON, 04/05/2023, 11:54. [facility], CT, CT CHEST ABD PEL W CON, 01/11/2024, 23:08. FINDINGS: Image quality: Diagnostic. Lower Neck: No enlarged lymph nodes. Thyroid: No thyroid nodules which require sonographic follow up, per consensus guidelines. Axillae: No enlarged lymph nodes. Chest Wall: Unremarkable. Bones: Unremarkable. Lungs and Pleura: Moderate right effusion with superimposed consolidative opacities. There are no areas of. There is a 1.7 cm isolated cavitary focus in the anterior aspect of the right upper lobe series 3, image 122. Heart: Heart size is normal. No pericardial effusion. Thoracic Vessels: The aorta and pulmonary arteries demonstrate normal size. Mediastinum and Torrie: No enlarged lymph nodes. Esophagus: No wall thickening. Mild hiatal hernia. Upper Abdomen: Visualized upper abdomen solid organs and bowel loops appear normal. IMPRESSION: Moderate effusion with superimposed consolidative opacities. The latter may be motor vehicle representative atelectasis versus developing pneumonia. No areas of enhancement to suggest empyema. 1.7 cm appearing focus right upper lobe. While this could represent a prominent pulmonary septated bleb, developing abscess cannot be definitively excluded MDM Narrative Medical decision making narrative: Labs from earlier today are unremarkable to include no leukocytosis. He was afebrile here in the emergency department. Ambulated around the emergency department without becoming hypoxic but did become somewhat tachypneic. Had a discussion with him regarding his symptoms. Unfortunately we are unable to perform a thoracentesis here in the emergency department. We do not have IR capability at this time or over the weekend. We discussed CT scan. Discussed risks and benefits. CT scan today does show effusion. No signs of overt empyema. He was currently on antibiotics which I encouraged him to continue to take. We did discuss the possibility of transfer to a facility that has IR capability however this is most likely not be an emergent situation as he was not tachypneic, not hypoxic, not tachycardic and ambulates without becoming hypoxic. We also discussed the possibility of being discharged home and knowing that he potentially could become worse over the next couple days and if that happens that he does need to be re-evaluated emergency department. He can also get the thoracentesis done as an outpatient ordered by his primary doctor and discussed contacting his primary doctor on Tuesday to put in the referral to have this completed. Patient opted to be discharged home. He was given strict return precautions. Both he and his expressed understanding and agreement with plan. Discharge Plan Departure Patient Disposition: Home Clinical Impression: Pleural effusion Instructions: DI for Pleural Effusion Activity Restrictions/Additional Instructions: I do recommend that you continue to take all of your medications as directed. If you start to develop new symptoms such as fevers or worsening shortness of breath you do need to be re-evaluated. On Tuesday contact your primary doctor for a follow-up. Return to the emergency department for new symptoms. Prescriptions: No Action sildenafil 100 mg tablet 100 mg PO DAILY PRN (Reason: sexual activity) Qty: 10 0RF Rx Instructions: administer 30 minutes to 4 hours before activity pregabalin [Lyrica] 200 mg capsule 200 mg PO BID Qty: 180 1RF levothyroxine 75 mcg tablet 75 mcg PO DAILY Qty: 90 3RF tramadol 50 mg tablet See Rx Instructions .ROUTE .COMPLEX Qty: 30 5RF Rx Instructions: Take 1 tablet by mouth every 6 hours as needed for naratriptan 2.5 mg tablet See Rx Instructions .ROUTE .COMPLEX Qty: 27 3RF Dose Instruction: TAKE ONE TABLET BY MOUTH NEEDED FOR MIGRAINE HEADACHE. MAY REPEAT AFTER TWO HOURS NEEDED Rx Instructions: TAKE ONE TABLET BY MOUTH NEEDED FOR MIGRAINE HEADACHE. MAY REPEAT AFTER TWO HOURS NEEDED hydrocodone-acetaminophen 5-325 mg tablet 1 tab PO Q8H PRN (Reason: pain) Qty: 30 0RF omeprazole 20 mg capsule,delayed release(DR/EC) 20 mg PO DAILY amoxicillin 500 mg tablet 1,000 mg PO BID 5 Days Qty: 20 0RF azithromycin 250 mg tablet See Rx Instructions PO .COMPLEX 5 Days Qty: 6 0RF Rx Instructions: For 250 mg dose pack: take 500 mg today (day 1), then 250 mg for 4 days (days 2-5) PO ezetimibe 10 mg tablet 10 mg PO DAILY aspirin [Adult Low Dose Aspirin] 81 mg tablet,delayed release (DR/EC) 81 mg PO DAILY omega-3 acid ethyl esters 1 cap PO DAILY melatonin 3 mg PO BEDTIME (DME) Disabled parking permit See Rx Instructions .ROUTE .MEDSUPPLY Qty: 1 0RF Rx Instructions: I find this patient to be medically disabled and qualified for disabled parking as indicated, and signed, on the accompanying disabled parking application for individuals. albuterol sulfate 90 mcg/actuation HFA aerosol inhaler 2 puff inhalation Q6H PRN (Reason: shortness of breath or wheezing) Qty: 8.5 0RF rosuvastatin 40 mg tablet 40 mg PO DAILY zonisamide 25 mg capsule 25 mg PO DAILY methocarbamol 500 mg tablet 500 mg PO BID Referrals: Eddie Garcia DO [Primary Care Provider] - Stand Alone Forms: Patient Portal/API/Survey
[2024-05-18 23:12] VITALS: BP 170/86; PULSE 68; RESP 16; O2SAT 94
== END 2024-05-18 23:12 | disposition home or self-care (01) ==
PROVIDERS: Emergency Provider Emergency Medicine; Family Provider Family Medicine; PCP Family Medicine
DX: J90 Pleural effusion, not elsewhere classified (principal); J18.9 Pneumonia, unspecified organism
CPT/HCPCS: 36415; 71046; 71260; 80053; 85025; 99281; 99284; Q9967

== ENCOUNTER → 2024-06-05 14:32 | Outpatient (CLI) | payer MEDICARE, OTHER, SELFPAY ==
[2024-01-12 02:53] VITALS: BMI 26.4
--- NOTE | 2024-06-05 14:33 | DI.RAD.S_ITS ---
PROCEDURE: XR CHEST 2V INDICATIONS: f/u thoracentesis TECHNIQUE: 2 views of the chest were acquired. COMPARISON: [facility], CT, CT CHEST W CON, 05/18/2024, 21:42. [facility], CR, XR CHEST 2V, 05/18/2024, 16:32. FINDINGS: Surgical changes and devices: Cervical spine fixation hardware. Lungs and pleura: Lungs are clear. No pneumothorax. Moderate right pleural effusion. Mediastinum: Mediastinal contours are normal. Heart size is normal. Bones and chest wall: No suspicious bony abnormalities. Soft tissues appear unremarkable. IMPRESSION: No pneumothorax. Dictated by: Carmelina Ramos MD, PhD on 06/05/2024 at 15:11 Approved by: Carmelina Ramos MD, PhD on 06/05/2024 at 15:12
== END ==
PROVIDERS: Family Provider Family Medicine; PCP Family Medicine; Referring Provider Family Medicine; Visit Provider Family Medicine
DX: J18.9 Pneumonia, unspecified organism (principal); J90 Pleural effusion, not elsewhere classified
CPT/HCPCS: 71046

== ENCOUNTER 2024-06-06 10:45 | Outpatient (RCR) | payer MEDICARE, OTHER, SELFPAY ==
[2024-01-12 02:53] VITALS: BMI 26.4
--- NOTE | 2024-04-06 15:44 | PT.OIE ---
Current Diagnoses Stiffness of other specified joint, not elsewhere classified (04/06/24) Cervicalgia (04/06/24) Paresthesia of skin (04/06/24) Other lack of coordination (04/06/24) Weakness (04/06/24) Past Medical History (Last Reviewed 01/15/24 @ 11:10 by Guanako Mario MD) Actinic keratosis Ankle pain (~2001) BPH NOS w ur obs/LUTS Carpal tunnel syndrome (~2014) Cervical fusion syndrome Cervical somatic dysfunction Chronic migraine without aura, with status migrainosus Chronic neck and back pain Chronic right shoulder pain Cough Cranial somatic dysfunction Encounter for initial annual wellness visit (AWV) in Medicare patient Erectile dysfunction Fever Fibromyalgia (~2014) Fractures (~1983) GERD (gastroesophageal reflux disease) (~2011) Headache (~1995) Headache, chronic migraine without aura Hearing loss Hemicrania continua Herpes (~1995) History of urinary incontinence (~2019) Hypothyroidism Hypothyroidism (acquired) Lower urinary tract symptoms (LUTS) Lumbar region somatic dysfunction Lung nodule Melanoma (~2009) Migraines (~1995) Pelvic somatic dysfunction Post-void dribbling Removal of staple Rib pain on right side Sacral region somatic dysfunction Scalp laceration Sciatic pain Segmental and somatic dysfunction of abdomen and other regions Segmental and somatic dysfunction of rib cage Shoulder pain (~1999) Skin cancer (~2012) Sleep apnea (~2014) Somatic dysfunction of lower extremity Spondylolisthesis at L4-L5 level Stiffness of finger joint of right hand ZACH (stress urinary incontinence), male Thoracic region somatic dysfunction Tinnitus (~2009) Urethral false passage Vasculogenic erectile dysfunction Past Surgical History (Last Reviewed 01/15/24 @ 11:10 by Guanako Mario MD) Anesthesia History of carpal tunnel surgery History of fusion of cervical spine (~1995) History of fusion of cervical spine History of heart artery stent (~2012) History of hernia repair History of laminectomy (~2003) History of lumbar fusion (~2000) Pyloric stenosis (~1942) S/P insertion of spinal cord stimulator S/P lumbar spinal fusion S/P TURP (status post transurethral resection of prostate) Visit Care Team Role Provider Type Eddie Garcia DO Primary Care Provider Physician Specialty: Family Practice Address: [address] [place] [address], [address], [address] Email: [email or web address] David Dewitt DO Family Provider Physician Specialty: Family Practice Address: [address] [place] [address], [address] Email: Jethro Arellano MD Attending Provider Non-Staff Referring Provider Specialty: Neurology Address: [address] [place] [address], [phone] Email: Physical Therapy Initial Evaluation PT-OP-A Visit Information Start: 04/05/24 16:11 Freq: Status: Active Protocol: Document 04/06/24 10:42 NM (Rec: 04/06/24 11:33 NM [id number]) Out-Patient Physical Therapy Visit Information Visit Information Visit Type Initial Evaluation Visit Note KX for all visits Visit Start Time 10:45 Visit Stop Time 11:30 Visit Number 1 Evaluation Information Evaluation Date 04/06/24 Precautions Precautions cervical and lumbar fusions, hx of thoracic compression fracture and anterior wedge deformities; cardiac stents PT-OP-B Current Condition Start: 04/05/24 16:11 Freq: Status: Active Protocol: Document 04/06/24 10:42 NM (Rec: 04/06/24 11:33 NM [id number]) Current Condition History of Current Condition Onset Date chronic Current Complaints pain, spasms History of Current Condition Pt presents with neck pain. He reports spasms that sets of migraines. He is getting trigger point injections for pain with Dr. Arellano; has had about 6 rounds. Pt planning to get a MRI, has to have PT. He reports spasms are worse with looking down, occasionally with looking up, turning L. Pain is worse on L side, never on R side. Has had 2 cervical fusions in 1995 (C3-C4 fusion ) and then more recently in 2020 (C6-C6 and screw in C6). He reports that he has had neck pain still since 2020. He has seen pain management. Pt numbness/tingling from posterior R shoulder down R arm into fingers 4-5 (numb/ tingling); has had since recovery from 2020 fusion. Achiness in R arm is worse in am and pm. He has an appt with Dr. Hardy next week for pain management. Pt has hx of severe 2nd and 3rd deg [place], 95% coverage from abdomen; about 35 years ago. Has cervical spine and lumbar spine fusions Treatment Goals Patient/Caregiver Goals open to any solutions Current Functional Impairments (Reported) Functional Limitations- ADL's reaching for top shelf doing dishes/looking down PT-OP-C Subjective Start: 04/05/24 16:11 Freq: Status: Active Protocol: Document 04/06/24 10:42 NM (Rec: 04/06/24 11:33 NM [id number]) OP-PT Subjective Patient Comments Patient Comments pt consents to participate in evaluation Patient Questionnaires Neck Disability Index NDI Score 46/100 Quick Dash- Upper Extremity Quick Dash UE Score 50% impairment OP-PT Pain Assessment Location cervical spine Pain Location Details L sided neck ~post SCM/LS Intensity 4 Scale Used Numeric (0 - 10) Description Aching,Shooting,Tightness Description- Other numbness/tingling; worst: 9/10 Frequency Frequent Radiating Location constant N/T- worse w/ use (e. g. raking) R arm Pain Aggravating Factors Position,ADL's,Activity, Exercise,Lifting Other Pain Aggravating Factors L side (sleeping)> R side; wake up d/t pain 2-3x/night Pain Alleviating Factors Medication,Sitting Other Pain Alleviating Factors trigger point treatment; tucking R arm into shirt ~ sling Comments Pain Comments methacarbamol and hydrocone PT-OP-F Manual Assessment Start: 04/05/24 16:11 Freq: Status: Active Protocol: Document 04/06/24 10:42 NM (Rec: 04/06/24 11:33 NM [id number]) Manual Assessments Soft Tissue Assessment Soft Tissue Mobility Assessment Demos increased restrictions of B thoracic R>L and cervical paraspinals L>R especially at posterior cuff/lat and posterior SCM Joint Mobility Assessment Joint Mobility Assessment Decreased scapular mobility B, decreased cervica/thoracic/ lumbar mobility PT-OP-G Mobility & Gait Start: 04/05/24 16:11 Freq: Status: Active Protocol: Document 04/06/24 10:42 NM (Rec: 04/06/24 12:50 NM [id number]) OP Gait Assessment Gait Gait Assistance Required: Independent Distance (Feet) 150 Assistive Devices Assistive Device None Comments Gait Comments Demos decreased trunk rotation , very stiff posture during gait PT-OP-H Neuro Start: 04/05/24 16:11 Freq: Status: Active Protocol: Document 04/06/24 10:42 NM (Rec: 04/06/24 11:33 NM [id number]) Sensation Evaluation Comments Summary Comments Reports heightened sensation along following dermatomes compared to contralateral side to light touch sensation C7, C8, T1, T2, C3-C5 Deep Tendon Reflex & Clonus Assessment Deep Tendon Reflex Bilateral Tricep Deep Tendon Reflex 1+ Diminished Bilateral Bicep Deep Tendon Reflex 1+ Diminished Bilateral Brachioradialis Deep Tendon Reflex 1+ Diminished PT-OP-J Posture/Palpation/Skin Start: 04/05/24 16:11 Freq: Status: Active Protocol: Document 04/06/24 10:42 NM (Rec: 04/06/24 11:33 NM [id number]) Posture Evaluation Position Standing Head/C-Spine Posture Forward Head T-Spine Posture Increased Kyphosis L-Spine Posture Decreased Lordosis Shoulder Posture (L) Rounded,(R) Rounded Scapula Posture (R) Protracted Arm Posture (L) Internally Rotated,(R) Internally Rotated Comments Posture Comments trunk stiffness Palpation Assessment Location cervical spine Palpation Details Tenderness along L tranverse processes especially into lower cervical spine; L SCM, R scapula. Soft tissue restrictions of paraspinals and periscapulars no point tenderness to cervical spinous processes PT-OP-K Range of Motion Start: 04/05/24 16:11 Freq: Status: Active Protocol: Document 04/06/24 10:42 NM (Rec: 04/06/24 11:33 NM [id number]) Cervical Spine Range of Motion Cervical Spine Active Degrees Flexion 30 Extension 25 Rotation Left 38 Rotation Right 42 Lateral Flexion Left 15 Lateral Flexion Right 15 Comments pain with flexion and extension, L LF, R rotation PT-OP-L Special Tests Start: 04/05/24 16:11 Freq: Status: Active Protocol: Document 04/06/24 10:42 NM (Rec: 04/06/24 11:33 NM [id number]) Special Tests Cervical Spine Special Tests Vertebral A. screen Test Results BP 118/75 mmHg; no positional test d/t fusion; cont assess PNS Comments cardiac and carotid a. ausc/ palp WLF- has stents; CN 1-6,8 ,10-11 intact Spurling's Test Results + Comments no compression ULTT Test Results assess next time PT-OP-M Strength Start: 04/05/24 16:11 Freq: Status: Active Protocol: Document 04/06/24 10:42 NM (Rec: 04/06/24 11:33 NM [id number]) Cervical Spine Strength Cervical Spine Manual Muscle Testing Flexion (C1-2) 4- Good- Extension 3+ Fair+ Rotation Left 4- Good- Rotation Right 4- Good- Lateral Flexion Left (C3) 4- Good- Lateral Flexion Right (C3) 4- Good- Comments extension worst but slight increase Shoulder Strength Shoulder Manual Muscle Testing Right Flexion 4- Good- Extension 4- Good- External Rotation 3+ Fair+ Internal Rotation 4- Good- Comments ER weaker, master steam yacht Left Flexion 4- Good- Extension 4- Good- External Rotation 4- Good- Internal Rotation 4- Good- Elbow/Forearm Strength Elbow and Forearm Manual Muscle Testing Right Flexion (C6) 4- Good- Extension (C7) 4- Good- Left Flexion (C6) 4- Good- Extension (C7) 4- Good- Wrist Strength Wrist Manual Muscle Testing Right Flexion (C7) 4- Good- Extension (C6) 4- Good- Left Flexion (C7) 4- Good- Extension (C6) 4- Good- PT-OP-Q Treatments Start: 04/05/24 16:11 Freq: Status: Active Protocol: Document 04/06/24 10:42 NM (Rec: 04/06/24 11:33 NM [id number]) Therapeutic Exercises Supine Exercises cervical isometrics Supine Exercise Name in neutral: lateral flexion and rotation Reps/Minutes 5x3 ea Sitting Exercises scapular squeezes Sitting Exercise Name retraction/adduction/ depression Side bilateral Reps/Minutes 10 Comments limited PT-OP-T Assessment and Plan Start: 04/05/24 16:11 Freq: Status: Active Protocol: Document 04/06/24 10:42 NM (Rec: 04/06/24 11:33 NM [id number]) Physical Therapy Assessment Rehab Potential Rehabilitation Potential Good Evaluation Complexity Number of Personal Factors/Comorbidities 3 or More Number of Body Systems Impaired 4 or More Clinical Presentation at Evaluation Stable Impairments Impairments Activity Tolerance,Balance, Functional Activities, Functional Mobility,Gait, Integument,Pain,Posture,ROM, Sensation,Soft Tissue Mobility ,Strength,Transfers,Vestibular Other Concerns Age Related Concerns PMH: back pain, headaches, hearing problems, neck pain, heart disease, thyroid disorder; cervical fusions (C3 -4, C5-6 and screws in C6 body ), 2023 lumbar fusion. 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 Intermediate Goal (LTG) Pt will be educated on body mechanics and ergonomics to improve posture and ability to perform ADLs with less pain LTG Duration 10 weeks 2 Impairment pain with ADLs; NDI 46/100, quickdash 50% impairment Impairment . Intermediate Goal (LTG) Pt will decrease NDI impairment to <25% in order to demonstrate improvements in ability to perform ADLs/IADLs with less pain LTG Duration 10 weeks 1 Impairment not performing HEP Impairment . Intermediate Goal (LTG) Pt will be IND with HEP at least 3x/wk in order to maximize progress with PT and transition to [facility] upon discharge from PT LTG Duration 8 weeks Assessment Summary Assessment Pt is an 79 y.o. presenting with neck pain and R sided radicular symptoms that are chronic. Symptoms have been worsening over several years. Pt has limited cervical spine and thoracic mobility due to hx of fusions and previous spinal fractures. He is able to stabilize his cervical spine and R shoulder against resistance. No significant difference in strength between RUE and LUE except for master steam yacht strength. Radicular symptoms are reproduced with vertebral compression. He has several soft tissue restrictions along R side posterior cuff and cervical spine which likely exacerbate symptoms. Pt reports impairments with ADLs/ IADLs, pain management, sleeping, driving, ROM, and strength. He does report paralysis of L vocal cords. PT educated pt on exam findings and plan of care. He is planning to trial PT in order to have a MRI. Pt is currently working with apprentice painter hand. He would benefit from skilled PT for progressive flexibility and strengthening in order to improve symptom management and ability to perform ADLs. Physical Therapy Plan Frequency and Duration Frequency of Treatment 2x/Week Duration of treatment (weeks) 8 Plan of Care Start Date 04/06/24 Plan of Care End Date 06/01/24 Therapeutic Interventions Therapeutic Interventions Gait Training,Home Exercise Program,Joint Mobilizations, Manual Therapy,Neuromuscular Re-education,Patient/Caregiver Education,Self-Care/Home Management,Sensory Integration ,Soft Tissue Mobilization, Taping,Therapeutic Activities, Therapeutic Exercises Modalities Cold Pack/Ice Massage,Hot Packs Next Visit Focus/Plan Next Note Type Treatment Note Next Visit Plan review HEP, CS swapna, scap mobility, rows, low rows Manual STM to L and R neck/ scap. Can trial taping as needed
--- NOTE | 2024-04-06 15:44 | PT.OPPOC ---
Physical, Occupational & Speech Therapy At [facility] Current Diagnoses Stiffness of other specified joint, not elsewhere classified (04/06/24) Cervicalgia (04/06/24) Paresthesia of skin (04/06/24) Other lack of coordination (04/06/24) Weakness (04/06/24) Visit Care Team Role Provider Type Eddie Garcia DO Primary Care Provider Physician Specialty: Family Practice Address: [address] [place] [address], [address], [address] Email: [email or web address] David Dewitt DO Family Provider Physician Specialty: Family Practice Address: [address] [place] [address], [id number] Email: Jethro Arellano MD Attending Provider Non-Staff Referring Provider Specialty: Neurology Address: [address] [place] [address], [phone] Email: Plan Of Care PT-OP-B Current Condition Start: 04/05/24 16:11 Freq: Status: Active Protocol: Document 04/06/24 10:42 NM (Rec: 04/06/24 11:33 NM [id number]) Current Condition History of Current Condition Onset Date chronic Current Complaints pain, spasms History of Current Condition Pt presents with neck pain. He reports spasms that sets of migraines. He is getting trigger point injections for pain with Dr. Arellano; has had about 6 rounds. Pt planning to get a MRI, has to have PT. He reports spasms are worse with looking down, occasionally with looking up, turning L. Pain is worse on L side, never on R side. Has had 2 cervical fusions in 1995 (C3-C4 fusion ) and then more recently in 2020 (C6-C6 and screw in C6). He reports that he has had neck pain still since 2020. He has seen pain management. Pt numbness/tingling from posterior R shoulder down R arm into fingers 4-5 (numb/ tingling); has had since recovery from 2020 fusion. Achiness in R arm is worse in am and pm. He has an appt with Dr. Hardy next week for pain management. Pt has hx of severe 2nd and 3rd deg [place], 95% coverage from abdomen; about 35 years ago. Has cervical spine and lumbar spine fusions Treatment Goals Patient/Caregiver Goals open to any solutions Current Functional Impairments (Reported) Functional Limitations- ADL's reaching for top shelf doing dishes/looking down PT-OP-T Assessment and Plan Start: 04/05/24 16:11 Freq: Status: Active Protocol: Document 04/06/24 10:42 NM (Rec: 04/06/24 11:33 NM [id number]) Physical Therapy Assessment Rehab Potential Rehabilitation Potential Good Evaluation Complexity Number of Personal Factors/Comorbidities 3 or More Number of Body Systems Impaired 4 or More Clinical Presentation at Evaluation Stable Impairments Impairments Activity Tolerance,Balance, Functional Activities, Functional Mobility,Gait, Integument,Pain,Posture,ROM, Sensation,Soft Tissue Mobility ,Strength,Transfers,Vestibular Other Concerns Age Related Concerns PMH: back pain, headaches, hearing problems, neck pain, heart disease, thyroid disorder; cervical fusions (C3 -4, C5-6 and screws in C6 body ), 2023 lumbar fusion. 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 Sweeper Driver Goal (LTG) Pt will be educated on body mechanics and ergonomics to improve posture and ability to perform ADLs with less pain LTG Duration 10 weeks 2 Impairment pain with ADLs; NDI 46/100, quickdash 50% impairment Impairment . Fdc Goal (LTG) Pt will decrease NDI impairment to <25% in order to demonstrate improvements in ability to perform ADLs/IADLs with less pain LTG Duration 10 weeks 1 Impairment not performing HEP Impairment . Fdc Goal (LTG) Pt will be IND with HEP at least 3x/wk in order to maximize progress with PT and transition to [facility] program upon discharge from PT LTG Duration 8 weeks Assessment Summary Assessment Pt is an 79 y.o. presenting with neck pain and R sided radicular symptoms that are chronic. Symptoms have been worsening over several years. Pt has limited cervical spine and thoracic mobility due to hx of fusions and previous spinal fractures. He is able to stabilize his cervical spine and R shoulder against resistance. No significant difference in strength between RUE and LUE except for gaming manager strength. Radicular symptoms are reproduced with vertebral compression. He has several soft tissue restrictions along R side posterior cuff and cervical spine which likely exacerbate symptoms. Pt reports impairments with ADLs/ IADLs, pain management, sleeping, driving, ROM, and strength. He does report paralysis of L vocal cords. PT educated pt on exam findings and plan of care. He is planning to trial PT in order to have a MRI. 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 He would benefit from skilled PT for progressive flexibility and strengthening in order to improve symptom management and ability to perform ADLs. Physical Therapy Plan Frequency and Duration Frequency of Treatment 2x/Week Duration of treatment (weeks) 8 Plan of Care Start Date 04/06/24 Plan of Care End Date 06/01/24 Therapeutic Interventions Therapeutic Interventions Gait Training,Home Exercise Program,Joint Mobilizations, Manual Therapy,Neuromuscular Re-education,Patient/Caregiver Education,Self-Care/Home Management,Sensory Integration ,Soft Tissue Mobilization, Taping,Therapeutic Activities, Therapeutic Exercises Modalities Cold Pack/Ice Massage,Hot Packs Next Visit Focus/Plan Next Note Type Treatment Note Next Visit Plan review HEP, CS swapna, scap mobility, rows, low rows Manual STM to L and R neck/ scap. Can trial taping as needed Plan of Care Dates Plan of Care Start Date 04/06/24 Plan of Care End Date 06/01/24 Electronically Signed by: Dahlia Blackmon, PT 04/09/24 0906 If you are in agreement with this Plan of Care, please return a signed and dated copy. I have reviewed this Plan of Care and certify that the skilled therapy services above are required to meet the patient?s needs. Physician Signature Date Printed Name and Credentials Clinical Instructor Signature Printed Name and Credentials
--- NOTE | 2024-04-10 10:43 | PT.OTN ---
Current Diagnoses Stiffness of other specified joint, not elsewhere classified (04/10/24) Cervicalgia (04/10/24) Paresthesia of skin (04/10/24) Other lack of coordination (04/10/24) Weakness (04/10/24) Physical Therapy Treatment Note PT-OP-A Visit Information Start: 04/05/24 16:11 Freq: Status: Active Protocol: Document 04/10/24 09:47 NM (Rec: 04/10/24 10:43 NM [id number]) Out-Patient Physical Therapy Visit Information Visit Information Visit Type Treatment Note Visit Note KX for all visits Visit Start Time 09:48 Visit Stop Time 10:30 Visit Number 2 Evaluation Information Evaluation Date 04/06/24 Precautions Precautions cervical and lumbar fusions, hx of thoracic compression fracture and anterior wedge deformities; cardiac stents PT-OP-B Current Condition Start: 04/05/24 16:11 Freq: Status: Active Protocol: Document 04/06/24 10:42 NM (Rec: 04/06/24 11:33 NM [id number]) Current Condition History of Current Condition Onset Date chronic Current Complaints pain, spasms History of Current Condition Pt presents with neck pain. He reports spasms that sets of migraines. He is getting trigger point injections for pain with Dr. Arellano; has had about 6 rounds. Pt planning to get a MRI, has to have PT. He reports spasms are worse with looking down, occasionally with looking up, turning L. Pain is worse on L side, never on R side. Has had 2 cervical fusions in 1995 (C3-C4 fusion ) and then more recently in 2020 (C6-C6 and screw in C6). He reports that he has had neck pain still since 2020. He has seen pain management. Pt numbness/tingling from posterior R shoulder down R arm into fingers 4-5 (numb/ tingling); has had since recovery from 2020 fusion. Achiness in R arm is worse in am and pm. He has an appt with Dr. Hardy next week for pain management. Pt has hx of severe 2nd and 3rd deg [place], 95% coverage from abdomen; about 35 years ago. Has cervical spine and lumbar spine fusions Treatment Goals Patient/Caregiver Goals open to any solutions Current Functional Impairments (Reported) Functional Limitations- ADL's reaching for top shelf doing dishes/looking down PT-OP-C Subjective Start: 04/05/24 16:11 Freq: Status: Active Protocol: Document 04/10/24 09:47 NM (Rec: 04/10/24 10:43 NM [id number]) OP-PT Subjective Patient Comments Patient Comments Pt reports that L sided neck spasms were really bad last night and this morning. Has taken ibuprofen and methacarbamol. He reports he began a puzzle this weekend. He reports not because of exercises. PT-OP-F Manual Assessment Start: 04/05/24 16:11 Freq: Status: Active Protocol: Document 04/06/24 10:42 NM (Rec: 04/06/24 11:33 NM [id number]) Manual Assessments Soft Tissue Assessment Soft Tissue Mobility Assessment Demos increased restrictions of B thoracic R>L and cervical paraspinals L>R especially at posterior cuff/lat and posterior SCM Joint Mobility Assessment Joint Mobility Assessment Decreased scapular mobility B, decreased cervica/thoracic/ lumbar mobility PT-OP-G Mobility & Gait Start: 04/05/24 16:11 Freq: Status: Active Protocol: Document 04/06/24 10:42 NM (Rec: 04/06/24 12:50 NM [id number]) OP Gait Assessment Gait Gait Assistance Required: Independent Distance (Feet) 150 Assistive Devices Assistive Device None Comments Gait Comments Demos decreased trunk rotation , very stiff posture during gait PT-OP-H Neuro Start: 04/05/24 16:11 Freq: Status: Active Protocol: Document 04/06/24 10:42 NM (Rec: 04/06/24 11:33 NM [id number]) Sensation Evaluation Comments Summary Comments Reports heightened sensation along following dermatomes compared to contralateral side to light touch sensation C7, C8, T1, T2, C3-C5 Deep Tendon Reflex & Clonus Assessment Deep Tendon Reflex Bilateral Tricep Deep Tendon Reflex 1+ Diminished Bilateral Bicep Deep Tendon Reflex 1+ Diminished Bilateral Brachioradialis Deep Tendon Reflex 1+ Diminished PT-OP-J Posture/Palpation/Skin Start: 04/05/24 16:11 Freq: Status: Active Protocol: Document 04/06/24 10:42 NM (Rec: 04/06/24 11:33 NM [id number]) Posture Evaluation Position Standing Head/C-Spine Posture Forward Head T-Spine Posture Increased Kyphosis L-Spine Posture Decreased Lordosis Shoulder Posture (L) Rounded,(R) Rounded Scapula Posture (R) Protracted Arm Posture (L) Internally Rotated,(R) Internally Rotated Comments Posture Comments trunk stiffness Palpation Assessment Location cervical spine Palpation Details Tenderness along L tranverse processes especially into lower cervical spine; L SCM, R scapula. Soft tissue restrictions of paraspinals and periscapulars no point tenderness to cervical spinous processes PT-OP-K Range of Motion Start: 04/05/24 16:11 Freq: Status: Active Protocol: Document 04/06/24 10:42 NM (Rec: 04/06/24 11:33 NM [id number]) Cervical Spine Range of Motion Cervical Spine Active Degrees Flexion 30 Extension 25 Rotation Left 38 Rotation Right 42 Lateral Flexion Left 15 Lateral Flexion Right 15 Comments pain with flexion and extension, L LF, R rotation PT-OP-L Special Tests Start: 04/05/24 16:11 Freq: Status: Active Protocol: Document 04/10/24 09:47 NM (Rec: 04/10/24 10:43 NM [id number]) Special Tests Cervical Spine Special Tests Vertebral A. screen Test Results BP 118/75 mmHg; no positional test d/t fusion; cont assess PNS Comments cardiac and carotid a. ausc/ palp WLF- has stents; CN 1-6,8 ,10-11 intact Spurling's Test Results + Comments no compression ULTT Test Results + Comments radial and ulnar nn. 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 Left Flexion 4- Good- Extension 4- Good- External Rotation 4- Good- Internal Rotation 4- Good- Elbow/Forearm Strength Elbow and Forearm Manual Muscle Testing Right Flexion (C6) 4- Good- Extension (C7) 4- Good- Left Flexion (C6) 4- Good- Extension (C7) 4- Good- Wrist Strength Wrist Manual Muscle Testing Right Flexion (C7) 4- Good- Extension (C6) 4- Good- Left Flexion (C7) 4- Good- Extension (C6) 4- Good- PT-OP-Q Treatments Start: 04/05/24 16:11 Freq: Status: Active Protocol: Document 04/10/24 09:47 NM (Rec: 04/10/24 10:43 NM [id number]) Therapeutic Exercises Supine Exercises pec stretch Supine Exercise Name 1. arms behind head, 2. T pose Side bilateral Reps/Minutes 60 ea cervical isometrics Supine Exercise Name in neutral: lateral flexion and rotation Side bilateral Reps/Minutes 10x5 ea Comments no increased pain Sitting Exercises scapular squeezes Sitting Exercise Name retraction/adduction/ depression: chicken wing Side bilateral Reps/Minutes 10x3 Other Exercises soft tissue mobilization Other Exercise Name MWM with pec snow angels (HEP) -no HO provided Side bilateral Equipment Used tennis ball in pillow case Reps/Minutes 3 min total Comments edu on use of post cuff Therapeutic Activity Therapeutic Activity sitting position Comments Educated on sitting ergonomics and postural modifications during computer use, ADLs, and puzzles. Recommended ergonomic adjustments (e.g. puzzle on taller table, adjusting computer height, pilow for support) and positioned pt for demonstration. Hand out provided sleeping position Comments Educated on rationale and anatomy. Positioned in sidelying with pillow between legs and pillow under R shoulder to provide support to rotator cuff. When sleeping on R shoulder, recommended rolling off of shoulder slightly for pain management. Also recommended use of pillow behind pt (positioned as well ) to limit pt rolling and provide posterior support. Issued handout Manual Therapy Treatment Consent Patient gave verbal consent for manual Yes treatment Soft Tissue Mobilization R shoulder Body Location periscapular, lat, post cuff Mobilization Type Rolling,Strumming,Sustained Pressure,Trigger Point Release Intensity/Depth Moderate Body Position Sidelying Comments Monitoed for pain. Increased restrictions and trigger points at infraspinatus, trap and LS insertion. Reports increased tingling with cervical spine Body Location SCM, SOR, scalenes, pec, LS, traps Mobilization Type Rolling,Strumming,Sustained Pressure Intensity/Depth Moderate Body Position supine,sidelying Comments Increased restrictions and mild palpable spasms L SCM > R . More restricted on L pec than R. Educated on gentle STM using hands on SCM and periscapulars, in addition to pec PT-OP-T Assessment and Plan Start: 04/05/24 16:11 Freq: Status: Active Protocol: Document 04/10/24 09:47 NM (Rec: 04/10/24 10:43 NM [id number]) Physical Therapy Assessment Goals 3 Impairment pain with sleeping, ADLs Impairment . Chcf Goal (LTG) Pt will be educated on body mechanics and ergonomics to improve posture and ability to perform ADLs with less pain LTG Duration 10 weeks 2 Impairment pain with ADLs; NDI 46/100, quickdash 50% impairment Impairment . Aerial Photographer Goal (LTG) Pt will decrease NDI impairment to <25% in order to demonstrate improvements in ability to perform ADLs/IADLs with less pain LTG Duration 10 weeks 1 Impairment not performing HEP Impairment . Chcf Goal (LTG) Pt will be IND with HEP at least 3x/wk in order to maximize progress with PT [facility] LTG Duration 8 weeks Assessment Summary Assessment Pt responds well to manual treatment and therapeutic exercises. Demos improved scapular depression and retraction today. Cued to maintain submaximal isometric contraction with both scapular activation and with cervical spine isometrics for overall pain management. Initiated pec stretch in addition to extensive education on sleeping posture and sitting ergonomics to reduce strain on cervical spine and decreased neural tension. Has positive ulnar and radial ULTT; will trial nerve mobilizations in future to determine affect on symptoms. Has significant restrictions of periscapulars and posterior cuff on R side; reduced with manual therapy. Does report increase in tingling into R hand with trigger point treatment. Pt would continue to benefit from skilled PT for progressive mobility and strengthening in order to improve symptom management and activity tolerance. Physical Therapy Plan Frequency and Duration Frequency of Treatment 2x/Week Duration of treatment (weeks) 8 Plan of Care Start Date 04/06/24 Plan of Care End Date 06/01/24 Therapeutic Interventions Therapeutic Interventions Gait Training,Home Exercise Program,Joint Mobilizations, Manual Therapy,Neuromuscular Re-education,Patient/Caregiver Education,Self-Care/Home Management,Sensory Integration ,Soft Tissue Mobilization, Taping,Therapeutic Activities, Therapeutic Exercises Modalities Cold Pack/Ice Massage,Hot Packs Next Visit Focus/Plan Next Note Type Treatment Note Next Visit Plan cervical and lumbar fusions* * Trial radial and ulnar nerve glides R side. Progress CS swapna into small ROM for rot away from neutral. Trial CS contraction. Cont work on scap depression and overall scap mobility curt with cervical spine. Progres to wall posture . RTC strength review HEP, CS swapna, scap mobility, rows, low rows Manual STM to L and R neck/ scap. Can trial taping as needed
--- NOTE | 2024-04-12 17:24 | PT.OTN ---
Current Diagnoses Stiffness of other specified joint, not elsewhere classified (04/12/24) Cervicalgia (04/12/24) Paresthesia of skin (04/12/24) Other lack of coordination (04/12/24) Weakness (04/12/24) Physical Therapy Treatment Note PT-OP-A Visit Information Start: 04/05/24 16:11 Freq: Status: Active Protocol: Document 04/12/24 13:08 (Rec: 04/12/24 14:07 [id number]) Out-Patient Physical Therapy Visit Information Visit Information Visit Type Treatment Note Visit Note KX for all visits Visit Start Time 13:04 Visit Stop Time 13:44 Visit Number 3 Precautions Precautions cervical and lumbar fusions, hx of thoracic compression fracture and anterior wedge deformities; cardiac stents PT-OP-B Current Condition Start: 04/05/24 16:11 Freq: Status: Active Protocol: Document 04/06/24 10:42 NM (Rec: 04/06/24 11:33 NM [id number]) Current Condition History of Current Condition Onset Date chronic Current Complaints pain, spasms History of Current Condition Pt presents with neck pain. He reports spasms that sets of migraines. He is getting trigger point injections for pain with Dr. Arellano; has had about 6 rounds. Pt planning to get a MRI, has to have PT. He reports spasms are worse with looking down, occasionally with looking up, turning L. Pain is worse on L side, never on R side. Has had 2 cervical fusions in 1995 (C3-C4 fusion ) and then more recently in 2020 (C6-C6 and screw in C6). He reports that he has had neck pain still since 2020. He has seen pain management. Pt numbness/tingling from posterior R shoulder down R arm into fingers 4-5 (numb/ tingling); has had since recovery from 2020 fusion. Achiness in R arm is worse in am and pm. He has an appt with Dr. Hardy next week for pain management. Pt has hx of severe 2nd and 3rd deg [place], 95% coverage from abdomen; about 35 years ago. Has cervical spine and lumbar spine fusions Treatment Goals Patient/Caregiver Goals open to any solutions Current Functional Impairments (Reported) Functional Limitations- ADL's reaching for top shelf doing dishes/looking down PT-OP-C Subjective Start: 04/05/24 16:11 Freq: Status: Active Protocol: Document 04/12/24 13:08 SW (Rec: 04/12/24 14:07 SW [id number]) OP-PT Subjective Patient Comments Patient Comments Pt reports yesterday saw Dr. Alegre, scheduling injection in C5, S1 and an MRI. PT-OP-F Manual Assessment Start: 04/05/24 16:11 Freq: Status: Active Protocol: Document 04/06/24 10:42 NM (Rec: 04/06/24 11:33 NM [id number]) Manual Assessments Soft Tissue Assessment Soft Tissue Mobility Assessment Demos increased restrictions of B thoracic R>L and cervical paraspinals L>R especially at posterior cuff/lat and posterior SCM Joint Mobility Assessment Joint Mobility Assessment Decreased scapular mobility B, decreased cervica/thoracic/ lumbar mobility PT-OP-G Mobility & Gait Start: 04/05/24 16:11 Freq: Status: Active Protocol: Document 04/06/24 10:42 NM (Rec: 04/06/24 12:50 NM [id number]) OP Gait Assessment Gait Gait Assistance Required: Independent Distance (Feet) 150 Assistive Devices Assistive Device None Comments Gait Comments Demos decreased trunk rotation , very stiff posture during gait PT-OP-H Neuro Start: 04/05/24 16:11 Freq: Status: Active Protocol: Document 04/06/24 10:42 NM (Rec: 04/06/24 11:33 NM [id number]) Sensation Evaluation Comments Summary Comments Reports heightened sensation along following dermatomes compared to contralateral side to light touch sensation C7, C8, T1, T2, C3-C5 Deep Tendon Reflex & Clonus Assessment Deep Tendon Reflex Bilateral Tricep Deep Tendon Reflex 1+ Diminished Bilateral Bicep Deep Tendon Reflex 1+ Diminished Bilateral Brachioradialis Deep Tendon Reflex 1+ Diminished PT-OP-J Posture/Palpation/Skin Start: 04/05/24 16:11 Freq: Status: Active Protocol: Document 04/06/24 10:42 NM (Rec: 04/06/24 11:33 NM [id number]) Posture Evaluation Position Standing Head/C-Spine Posture Forward Head T-Spine Posture Increased Kyphosis L-Spine Posture Decreased Lordosis Shoulder Posture (L) Rounded,(R) Rounded Scapula Posture (R) Protracted Arm Posture (L) Internally Rotated,(R) Internally Rotated Comments Posture Comments trunk stiffness Palpation Assessment Location cervical spine Palpation Details Tenderness along L tranverse processes especially into lower cervical spine; L SCM, R scapula. Soft tissue restrictions of paraspinals and periscapulars no point tenderness to cervical spinous processes PT-OP-K Range of Motion Start: 04/05/24 16:11 Freq: Status: Active Protocol: Document 04/06/24 10:42 NM (Rec: 04/06/24 11:33 NM [id number]) Cervical Spine Range of Motion Cervical Spine Active Degrees Flexion 30 Extension 25 Rotation Left 38 Rotation Right 42 Lateral Flexion Left 15 Lateral Flexion Right 15 Comments pain with flexion and extension, L LF, R rotation PT-OP-L Special Tests Start: 04/05/24 16:11 Freq: Status: Active Protocol: Document 04/10/24 09:47 NM (Rec: 04/10/24 10:43 NM [id number]) Special Tests Cervical Spine Special Tests Vertebral A. screen Test Results BP 118/75 mmHg; no positional test d/t fusion; cont assess PNS Comments cardiac and carotid a. ausc/ palp WLF- has stents; CN 1-6,8 ,10-11 intact Spurling's Test Results + Comments no compression ULTT Test Results + Comments radial and ulnar nn. PT-OP-M Strength Start: 04/05/24 16:11 Freq: Status: Active Protocol: Document 04/06/24 10:42 NM (Rec: 04/06/24 11:33 NM [id number]) Cervical Spine Strength Cervical Spine Manual Muscle Testing Flexion (C1-2) 4- Good- Extension 3+ Fair+ Rotation Left 4- Good- Rotation Right 4- Good- Lateral Flexion Left (C3) 4- Good- Lateral Flexion Right (C3) 4- Good- Comments extension worst but slight increase Shoulder Strength Shoulder Manual Muscle Testing Right Flexion 4- Good- Extension 4- Good- External Rotation 3+ Fair+ Internal Rotation 4- Good- Comments ER weaker, adon Left Flexion 4- Good- Extension 4- Good- External Rotation 4- Good- Internal Rotation 4- Good- Elbow/Forearm Strength Elbow and Forearm Manual Muscle Testing Right Flexion (C6) 4- Good- Extension (C7) 4- Good- Left Flexion (C6) 4- Good- Extension (C7) 4- Good- Wrist Strength Wrist Manual Muscle Testing Right Flexion (C7) 4- Good- Extension (C6) 4- Good- Left Flexion (C7) 4- Good- Extension (C6) 4- Good- PT-OP-Q Treatments Start: 04/05/24 16:11 Freq: Status: Active Protocol: Document 04/12/24 13:08 (Rec: 04/12/24 14:07 [id number]) Therapeutic Exercises Supine Exercises Cervical ROM Supine Exercise Name cervical spine rotations, did not issue as HEP Side bilateral Resistance AROM Reps/Minutes x5 Comments gentle minimal range, cued posture, instructed to not push into pain pec stretch Supine Exercise Name 1. arms behind head, 2. T pose Side bilateral Reps/Minutes 60 ea cervical isometrics Supine Exercise Name in neutral: lateral flexion and rotation Side bilateral Reps/Minutes 10x5 ea Comments no increased pain Sitting Exercises scapular squeezes Sitting Exercise Name retraction/adduction/ depression: chicken wing Side bilateral Reps/Minutes 10x3 Standing Exercises nerve glides Standing Exercise Name radial, ulnar (issued HEP) Side right Reps/Minutes x5 ea Comments cued patient gentle, no pushing into increasing symptoms Wall posture Standing Exercise Name standing wall posture (issued HEP) Equipment Used Towel rolled support behind head d/t forward head posture Manual Therapy Treatment Consent Patient gave verbal consent for manual Yes treatment Soft Tissue Mobilization R shoulder Body Location periscapular, lat, post cuff Mobilization Type Rolling,Strumming,Sustained Pressure,Trigger Point Release Intensity/Depth Moderate Body Position Sidelying Comments Pt reports a zinging pain down arm with STM to R LS near scapular superior angle. Frequent feedback for pt tolerance/pain. cervical spine Body Location SCM, SOR, scalenes, pec, LS, traps Mobilization Type Rolling,Strumming,Sustained Pressure,Trigger Point Release Intensity/Depth Moderate Body Position supine,sidelying Comments Palpable trigger points on Left SCM PT-OP-T Assessment and Plan Start: 04/05/24 16:11 Freq: Status: Active Protocol: Document 04/12/24 13:08 (Rec: 04/12/24 14:07 [id number]) Physical Therapy Assessment Goals 3 Impairment pain with sleeping, ADLs Impairment . Flotation Tender Helper Goal (LTG) Pt will be educated on body mechanics and ergonomics to improve posture and ability to perform ADLs with less pain LTG Duration 10 weeks 2 Impairment pain with ADLs; NDI 46/100, quickdash 50% impairment Impairment . Flotation Tender Helper Goal (LTG) Pt will decrease NDI impairment to <25% in order to demonstrate improvements in ability to perform ADLs/IADLs with less pain LTG Duration 10 weeks 1 Impairment not performing HEP Impairment . Prison Goal (LTG) Pt will be IND with HEP at least 3x/wk in order to maximize progress with PT and transition to maitenance program upon discharge from PT LTG Duration 8 weeks Assessment Summary Assessment Continued manual therapy today to decrease mm spasm, tension , and increase mobility. Progressed to wall posture today, towel behind head for forward head posture, cued for neutral cervical alignment. Initiated radial/ulnar nerve glides, encouraged pt feedback for tolerance, cued pt for gentle glide, and to not push into increasing symptoms, issued HEP HO. Pt motivated in session today with new exercises, encouraged pt to listen to feedback from body, gentle only, and not push into increasing symptoms with nerve glides. Plan to followup next session for pt tolerance on nerve glides and progress as able next session. Physical Therapy Plan Frequency and Duration Frequency of Treatment 2x/Week Duration of treatment (weeks) 8 Plan of Care Start Date 04/06/24 Plan of Care End Date 06/01/24 Therapeutic Interventions Therapeutic Interventions Gait Training,Home Exercise Program,Joint Mobilizations, Manual Therapy,Neuromuscular Re-education,Patient/Caregiver Education,Self-Care/Home Management,Sensory Integration ,Soft Tissue Mobilization, Taping,Therapeutic Activities, Therapeutic Exercises Modalities Cold Pack/Ice Massage,Hot Packs Next Visit Focus/Plan Next Note Type Treatment Note Next Visit Plan cervical and lumbar fusions* * follow up on tolerance to radial and ulnar nerve glides R side. Progress CS swapna into small ROM for rot away from neutral. Trial CS contraction. Cont work on scap depression and overall scap mobility curt with cervical spine. Progres to wall posture. RTC strength review HEP, CS swapna, scap mobility, rows, low rows Manual STM to L and R neck/ scap. Can trial taping as needed
--- NOTE | 2024-04-16 15:25 | PT.OTN ---
Current Diagnoses Stiffness of other specified joint, not elsewhere classified (04/16/24) Cervicalgia (04/16/24) Paresthesia of skin (04/16/24) Other lack of coordination (04/16/24) Weakness (04/16/24) Physical Therapy Treatment Note PT-OP-A Visit Information Start: 04/05/24 16:11 Freq: Status: Active Protocol: Document 04/16/24 14:32 NM (Rec: 04/16/24 15:25 NM [id number]) Out-Patient Physical Therapy Visit Information Visit Information Visit Type Treatment Note Visit Note KX for all visits Visit Start Time 14:33 Visit Stop Time 15:15 Visit Number 4 Evaluation Information Evaluation Date 04/06/24 Precautions Precautions cervical and lumbar fusions, hx of thoracic compression fracture and anterior wedge deformities; cardiac stents PT-OP-B Current Condition Start: 04/05/24 16:11 Freq: Status: Active Protocol: Document 04/06/24 10:42 NM (Rec: 04/06/24 11:33 NM [id number]) Current Condition History of Current Condition Onset Date chronic Current Complaints pain, spasms History of Current Condition Pt presents with neck pain. He reports spasms that sets of migraines. He is getting trigger point injections for pain with Dr. Arellano; has had about 6 rounds. Pt planning to get a MRI, has to have PT. He reports spasms are worse with looking down, occasionally with looking up, turning L. Pain is worse on L side, never on R side. Has had 2 cervical fusions in 1995 (C3-C4 fusion ) and then more recently in 2020 (C6-C6 and screw in C6). He reports that he has had neck pain still since 2020. He has seen pain management. Pt numbness/tingling from posterior R shoulder down R arm into fingers 4-5 (numb/ tingling); has had since recovery from 2020 fusion. Achiness in R arm is worse in am and pm. He has an appt with Dr. Hardy next week for pain management. Pt has hx of severe 2nd and 3rd deg [place], 95% coverage from abdomen; about 35 years ago. Has cervical spine and lumbar spine fusions Treatment Goals Patient/Caregiver Goals open to any solutions Current Functional Impairments (Reported) Functional Limitations- ADL's reaching for top shelf doing dishes/looking down PT-OP-C Subjective Start: 04/05/24 16:11 Freq: Status: Active Protocol: Document 04/16/24 14:32 NM (Rec: 04/16/24 15:25 NM [id number]) OP-PT Subjective Patient Comments Patient Comments Pt will be getting injection in lumbar spine in upcoming weeks. Reports no change in symptoms in neck and hands. Still waiting for MRI after PT . Did tennis ball on his R shoulder, reports a little relief. PT-OP-F Manual Assessment Start: 04/05/24 16:11 Freq: Status: Active Protocol: Document 04/06/24 10:42 NM (Rec: 04/06/24 11:33 NM [id number]) Manual Assessments Soft Tissue Assessment Soft Tissue Mobility Assessment Demos increased restrictions of B thoracic R>L and cervical paraspinals L>R especially at posterior cuff/lat and posterior SCM Joint Mobility Assessment Joint Mobility Assessment Decreased scapular mobility B, decreased cervica/thoracic/ lumbar mobility PT-OP-G Mobility & Gait Start: 04/05/24 16:11 Freq: Status: Active Protocol: Document 04/06/24 10:42 NM (Rec: 04/06/24 12:50 NM [id number]) OP Gait Assessment Gait Gait Assistance Required: Independent Distance (Feet) 150 Assistive Devices Assistive Device None Comments Gait Comments Demos decreased trunk rotation , very stiff posture during gait PT-OP-H Neuro Start: 04/05/24 16:11 Freq: Status: Active Protocol: Document 04/06/24 10:42 NM (Rec: 04/06/24 11:33 NM [id number]) Sensation Evaluation Comments Summary Comments Reports heightened sensation along following dermatomes compared to contralateral side to light touch sensation C7, C8, T1, T2, C3-C5 Deep Tendon Reflex & Clonus Assessment Deep Tendon Reflex Bilateral Tricep Deep Tendon Reflex 1+ Diminished Bilateral Bicep Deep Tendon Reflex 1+ Diminished Bilateral Brachioradialis Deep Tendon Reflex 1+ Diminished PT-OP-J Posture/Palpation/Skin Start: 04/05/24 16:11 Freq: Status: Active Protocol: Document 04/06/24 10:42 NM (Rec: 04/06/24 11:33 NM [id number]) Posture Evaluation Position Standing Head/C-Spine Posture Forward Head T-Spine Posture Increased Kyphosis L-Spine Posture Decreased Lordosis Shoulder Posture (L) Rounded,(R) Rounded Scapula Posture (R) Protracted Arm Posture (L) Internally Rotated,(R) Internally Rotated Comments Posture Comments trunk stiffness Palpation Assessment Location cervical spine Palpation Details Tenderness along L tranverse processes especially into lower cervical spine; L SCM, R scapula. Soft tissue restrictions of paraspinals and periscapulars no point tenderness to cervical spinous processes PT-OP-K Range of Motion Start: 04/05/24 16:11 Freq: Status: Active Protocol: Document 04/06/24 10:42 NM (Rec: 04/06/24 11:33 NM [id number]) Cervical Spine Range of Motion Cervical Spine Active Degrees Flexion 30 Extension 25 Rotation Left 38 Rotation Right 42 Lateral Flexion Left 15 Lateral Flexion Right 15 Comments pain with flexion and extension, L LF, R rotation PT-OP-L Special Tests Start: 04/05/24 16:11 Freq: Status: Active Protocol: Document 04/10/24 09:47 NM (Rec: 04/10/24 10:43 NM [id number]) Special Tests Cervical Spine Special Tests Vertebral A. screen Test Results BP 118/75 mmHg; no positional test d/t fusion; cont assess PNS Comments cardiac and carotid a. ausc/ palp WLF- has stents; CN 1-6,8 ,10-11 intact Spurling's Test Results + Comments no compression ULTT Test Results + Comments radial and ulnar nn. PT-OP-M Strength Start: 04/05/24 16:11 Freq: Status: Active Protocol: Document 04/06/24 10:42 NM (Rec: 04/06/24 11:33 NM [id number]) Cervical Spine Strength Cervical Spine Manual Muscle Testing Flexion (C1-2) 4- Good- Extension 3+ Fair+ Rotation Left 4- Good- Rotation Right 4- Good- Lateral Flexion Left (C3) 4- Good- Lateral Flexion Right (C3) 4- Good- Comments extension worst but slight increase Shoulder Strength Shoulder Manual Muscle Testing Right Flexion 4- Good- Extension 4- Good- External Rotation 3+ Fair+ Internal Rotation 4- Good- Comments ER weaker, cable hooker Left Flexion 4- Good- Extension 4- Good- External Rotation 4- Good- Internal Rotation 4- Good- Elbow/Forearm Strength Elbow and Forearm Manual Muscle Testing Right Flexion (C6) 4- Good- Extension (C7) 4- Good- Left Flexion (C6) 4- Good- Extension (C7) 4- Good- Wrist Strength Wrist Manual Muscle Testing Right Flexion (C7) 4- Good- Extension (C6) 4- Good- Left Flexion (C7) 4- Good- Extension (C6) 4- Good- PT-OP-Q Treatments Start: 04/05/24 16:11 Freq: Status: Active Protocol: Document 04/16/24 14:32 NM (Rec: 04/16/24 15:25 NM [id number]) Therapeutic Exercises Supine Exercises HABD Supine Exercise Name hooklying Side bilateral Resistance lvl 1 band Reps/Minutes 10 Comments cued for scap form [place] Supine Exercise Name with cervical retraction Side bilateral Resistance level 1 band Reps/Minutes 10 Comments cued form Standing Exercises Wall posture Standing Exercise Name 1. B ER, 2. snow angela Side bilateral Resistance lvl 1 band Equipment Used Towel rolled support behind head d/t forward head posture Reps/Minutes 1. 15, 2. 10 Comments cued form; pain free; slight cervical retraction Manual Therapy Treatment Consent Patient gave verbal consent for manual Yes treatment Soft Tissue Mobilization chest/trunk Body Location B pecs, intercostals Mobilization Type Rolling,Sustained Pressure, Trigger Point Release Intensity/Depth Superficial Body Position Hooklying Comments Monitored for pain. Mild tenderness along R upper intercostals just below clavicle R shoulder Body Location periscapular, lat, post cuff Mobilization Type Rolling,Strumming,Sustained Pressure,Trigger Point Release Intensity/Depth Moderate Body Position Sidelying Comments Monitored for pain. Has less discomfort and fewer trigger points along R post cuff. Still has trigger points that reproduce pain into R hand, less tingling today cervical spine Body Location SCM, SOR, scalenes, pec, LS, traps Mobilization Type Rolling,Strumming,Sustained Pressure,Trigger Point Release Intensity/Depth Moderate Body Position supine,sidelying Comments Palpable trigger points on Left SCM, L LS/UT, reduced with manual treatment but not eliminanted Joint Mobilizations Ribs Joint R 1st rib Direction caudal Grade II Body Position Hooklying Reps/Duration 10 Comments reports increased tingling into R hand; d/c PT-OP-T Assessment and Plan Start: 04/05/24 16:11 Freq: Status: Active Protocol: Document 04/16/24 14:32 NM (Rec: 04/16/24 15:25 NM [id number]) Physical Therapy Assessment Goals 3 Impairment pain with sleeping, ADLs Impairment . Prison Goal (LTG) Pt will be educated on body mechanics and ergonomics to improve posture and ability to perform ADLs with less pain LTG Duration 10 weeks 2 Impairment pain with ADLs; NDI 46/100, quickdash 50% impairment Impairment . Director Marketing Communications Goal (LTG) Pt will decrease NDI impairment to <25% in order to demonstrate improvements in ability to perform ADLs/IADLs with less pain LTG Duration 10 weeks 1 Impairment not performing HEP Impairment . Director Marketing Communications Goal (LTG) Pt will be IND with HEP at least 3x/wk in order to maximize progress with PT and transition to maitenance program upon discharge from PT LTG Duration 8 weeks Assessment Summary Assessment Pt tolerated session well with better feedback to manual therapy and therapuetic exercise. Able to progress to small resisted scapular activation with cervical retraction to improve posterior chain activation. Still demos strong forward head posture, especially with wall posture. Fewer trigger points today than previous sessions; improved with manual therapy and trigger point releases but still present. Increased tingling into R hand with pec/post cuff and rib mobilizations; discontinued due to tingling. Pt reports less numbness into R hand at end of session and less neck pain (does not provide number) . Pt would continue to benefit from skilled PT for progressive flexibility and strengthening to improve muscle length and symptom management during ADLs. Physical Therapy Plan Frequency and Duration Frequency of Treatment 2x/Week Duration of treatment (weeks) 8 Plan of Care Start Date 04/06/24 Plan of Care End Date 06/01/24 Therapeutic Interventions Therapeutic Interventions Gait Training,Home Exercise Program,Joint Mobilizations, Manual Therapy,Neuromuscular Re-education,Patient/Caregiver Education,Self-Care/Home Management,Sensory Integration ,Soft Tissue Mobilization, Taping,Therapeutic Activities, Therapeutic Exercises Modalities Cold Pack/Ice Massage,Hot Packs Next Visit Focus/Plan Next Note Type Treatment Note Next Visit Plan cervical and lumbar fusions* * Progress CS swapna into small ROM for rot away from neutral, can trial added band. Trial CS swapna at wall w/ ball. Cont work on scap depression and overall scap mobility curt with cervical spine, may trial pool noodle vs seated TS ext and rot. Progress w/ RTC strength, rows, low rows Manual STM to L and R neck/ scap. Can trial taping as needed
--- NOTE | 2024-04-27 15:55 | PT.OTN ---
Current Diagnoses Stiffness of other specified joint, not elsewhere classified (04/27/24) Cervicalgia (04/27/24) Paresthesia of skin (04/27/24) Other lack of coordination (04/27/24) Weakness (04/27/24) Physical Therapy Treatment Note PT-OP-A Visit Information Start: 04/05/24 16:11 Freq: Status: Active Protocol: Document 04/27/24 11:32 NM (Rec: 04/27/24 12:22 NM [id number]) Out-Patient Physical Therapy Visit Information Visit Information Visit Type Progress Note Visit Note KX for all visits Visit Start Time 11:34 Visit Stop Time 12:15 Visit Number 5 Evaluation Information Evaluation Date 04/06/24 Precautions Precautions cervical and lumbar fusions, hx of thoracic compression fracture and anterior wedge deformities; cardiac stents PT-OP-B Current Condition Start: 04/05/24 16:11 Freq: Status: Active Protocol: Document 04/06/24 10:42 NM (Rec: 04/06/24 11:33 NM [id number]) Current Condition History of Current Condition Onset Date chronic Current Complaints pain, spasms History of Current Condition Pt presents with neck pain. He reports spasms that sets of migraines. He is getting trigger point injections for pain with Dr. Arellano; has had about 6 rounds. Pt planning to get a MRI, has to have PT. He reports spasms are worse with looking down, occasionally with looking up, turning L. Pain is worse on L side, never on R side. Has had 2 cervical fusions in 1995 (C3-C4 fusion ) and then more recently in 2020 (C6-C6 and screw in C6). He reports that he has had neck pain still since 2020. He has seen pain management. Pt numbness/tingling from posterior R shoulder down R arm into fingers 4-5 (numb/ tingling); has had since recovery from 2020 fusion. Achiness in R arm is worse in am and pm. He has an appt with Dr. Hardy next week for pain management. Pt has hx of severe 2nd and 3rd deg [place], 95% coverage from abdomen; about 35 years ago. Has cervical spine and lumbar spine fusions Treatment Goals Patient/Caregiver Goals open to any solutions Current Functional Impairments (Reported) Functional Limitations- ADL's reaching for top shelf doing dishes/looking down PT-OP-C Subjective Start: 04/05/24 16:11 Freq: Status: Active Protocol: Document 04/27/24 11:32 NM (Rec: 04/27/24 12:22 NM [id number]) OP-PT Subjective Patient Comments Patient Comments Pt reports just got out of hospital, did try a little exercises there. He reports that he had pneumonia, has not been coughing, feels better just weak. Pt reports neck and shoulders began bothering him again yesterday, began spasming, reports L side not just SCM and trap. PT-OP-F Manual Assessment Start: 04/05/24 16:11 Freq: Status: Active Protocol: Document 04/06/24 10:42 NM (Rec: 04/06/24 11:33 NM [id number]) Manual Assessments Soft Tissue Assessment Soft Tissue Mobility Assessment Demos increased restrictions of B thoracic R>L and cervical paraspinals L>R especially at posterior cuff/lat and posterior SCM Joint Mobility Assessment Joint Mobility Assessment Decreased scapular mobility B, decreased cervica/thoracic/ lumbar mobility PT-OP-G Mobility & Gait Start: 04/05/24 16:11 Freq: Status: Active Protocol: Document 04/06/24 10:42 NM (Rec: 04/06/24 12:50 NM [id number]) OP Gait Assessment Gait Gait Assistance Required: Independent Distance (Feet) 150 Assistive Devices Assistive Device None Comments Gait Comments Demos decreased trunk rotation , very stiff posture during gait PT-OP-H Neuro Start: 04/05/24 16:11 Freq: Status: Active Protocol: Document 04/06/24 10:42 NM (Rec: 04/06/24 11:33 NM [id number]) Sensation Evaluation Comments Summary Comments Reports heightened sensation along following dermatomes compared to contralateral side to light touch sensation C7, C8, T1, T2, C3-C5 Deep Tendon Reflex & Clonus Assessment Deep Tendon Reflex Bilateral Tricep Deep Tendon Reflex 1+ Diminished Bilateral Bicep Deep Tendon Reflex 1+ Diminished Bilateral Brachioradialis Deep Tendon Reflex 1+ Diminished PT-OP-J Posture/Palpation/Skin Start: 04/05/24 16:11 Freq: Status: Active Protocol: Document 04/06/24 10:42 NM (Rec: 04/06/24 11:33 NM [id number]) Posture Evaluation Position Standing Head/C-Spine Posture Forward Head T-Spine Posture Increased Kyphosis L-Spine Posture Decreased Lordosis Shoulder Posture (L) Rounded,(R) Rounded Scapula Posture (R) Protracted Arm Posture (L) Internally Rotated,(R) Internally Rotated Comments Posture Comments trunk stiffness Palpation Assessment Location cervical spine Palpation Details Tenderness along L tranverse processes especially into lower cervical spine; L SCM, R scapula. Soft tissue restrictions of paraspinals and periscapulars no point tenderness to cervical spinous processes PT-OP-K Range of Motion Start: 04/05/24 16:11 Freq: Status: Active Protocol: Document 04/27/24 11:32 NM (Rec: 04/27/24 12:22 NM [id number]) Cervical Spine Range of Motion Cervical Spine Active Degrees Flexion 30 Extension 25 Rotation Left 38 Rotation Right 42 Lateral Flexion Left 15 Lateral Flexion Right 15 Comments pain with flexion and extension, L LF, R rotation 04/27/24: 35 deg flex, 30 deg ext, 20 deg LF, 15 deg L LF, 40 deg L rot, 45 deg R rot PT-OP-L Special Tests Start: 04/05/24 16:11 Freq: Status: Active Protocol: Document 04/10/24 09:47 NM (Rec: 04/10/24 10:43 NM [id number]) Special Tests Cervical Spine Special Tests Vertebral A. screen Test Results BP 118/75 mmHg; no positional test d/t fusion; cont assess PNS Comments cardiac and carotid a. ausc/ palp WLF- has stents; CN 1-6,8 ,10-11 intact Spurling's Test Results + Comments no compression ULTT Test Results + Comments radial and ulnar nn. PT-OP-M Strength Start: 04/05/24 16:11 Freq: Status: Active Protocol: Document 04/27/24 11:32 NM (Rec: 04/27/24 12:22 NM [id number]) Cervical Spine Strength Cervical Spine Manual Muscle Testing Flexion (C1-2) 4- Good- Extension 3+ Fair+ Rotation Left 4- Good- Rotation Right 4- Good- Lateral Flexion Left (C3) 4- Good- Lateral Flexion Right (C3) 4- Good- Comments extension worst but slight increase PT-OP-Q Treatments Start: 04/05/24 16:11 Freq: Status: Active Protocol: Document 04/27/24 11:32 NM (Rec: 04/27/24 12:22 NM [id number]) Therapeutic Exercises Sitting Exercises scapular squeezes Sitting Exercise Name 1. retraction, 2. depression w / slight retraction Side bilateral Reps/Minutes 1. 8x3, 2. 8 @ wall Comments pain free, better scapular motion post manual Standing Exercises row & low row Side bilateral Resistance orange band level 2 Equipment Used staggered stance Reps/Minutes 10x3 Comments verbal and tactile cues for form, scap motions Manual Therapy Treatment Consent Patient gave verbal consent for manual Yes treatment Soft Tissue Mobilization R shoulder Body Location periscapular, lat, post cuff Mobilization Type Rolling,Strumming,Sustained Pressure,Trigger Point Release Intensity/Depth Moderate Body Position Sitting Comments Sitting d/t hx PNA. Monitored for pain. Avoiding R post cuff today d/t reports of tingling . Less tingling todya, increased restrictions of rhomboids cervical spine Body Location SCM, SOR, scalenes, pec, LS, traps Mobilization Type Rolling,Strumming,Sustained Pressure,Trigger Point Release Intensity/Depth Moderate Body Position supine,sidelying Comments Palpable trigger points on B UT/LS but especially Left SCM, L LS/UT, reduced with manual treatment but not eliminated Joint Mobilizations scapular Direction upwd/dwd rot, elev/dep Grade III Body Position Sitting Reps/Duration 10 ea Comments monitored for pain. reports muscles feel better following scapular mobilizations PT-OP-T Assessment and Plan Start: 04/05/24 16:11 Freq: Status: Active Protocol: Document 04/27/24 11:32 NM (Rec: 04/27/24 12:22 NM [id number]) Physical Therapy Assessment Goals 3 Impairment pain with sleeping, ADLs Impairment . Computer Support Technician Goal (LTG) Pt will be educated on body mechanics and ergonomics to improve posture and ability to perform ADLs with less pain LTG Duration 10 weeks 2 Impairment pain with ADLs; NDI 46/100, quickdash 50% impairment Impairment . Usp Goal (LTG) Pt will decrease NDI impairment to <25% in order to demonstrate improvements in ability to perform ADLs/IADLs with less pain 04/27/24: 44% impairment, mild improvement from evaluation LTG Duration 10 weeks 1 Impairment not performing HEP Impairment . Usp Goal (LTG) Pt will be IND with HEP at least 3x/wk in order to maximize progress with PT and transition to maitenance program upon discharge from PT 04/27/24: compliant with HEP prior to hospitalization LTG Duration 8 weeks Progress Towards Goals Progress Towards Goals Progressing Toward Goals,Slow Progress due to Activity Tolerance Assessment Summary Assessment Pt has increased soft tissue restrictions of cervical spine following hospitalization; kept in sitting upright with support during manual treatment. Initiated scapular mobilizations to facilitate improved mobility and muscle length of periscapulars/ paraspinals. Pt responds well to scapular mobilizations, but continues to demo scapular elevation due to muscle restrictions. Initiated resisted periscapular strengthening with rows and low rows; cueing for form, needs cueing to prevent compensations at trunk. Physical Therapy Plan Frequency and Duration Frequency of Treatment 2x/Week Duration of treatment (weeks) 8 Plan of Care Start Date 04/27/24 Plan of Care End Date 06/22/24 Therapeutic Interventions Therapeutic Interventions Gait Training,Home Exercise Program,Joint Mobilizations, Manual Therapy,Neuromuscular Re-education,Patient/Caregiver Education,Self-Care/Home Management,Sensory Integration ,Soft Tissue Mobilization, Taping,Therapeutic Activities, Therapeutic Exercises Modalities Cold Pack/Ice Massage,Hot Packs Next Visit Focus/Plan Next Note Type Treatment Note Next Visit Plan cervical and lumbar fusions* * Review periscapular strength, progress as tolerated. Wall posture. Ok for supine/ sidelying as long as monitored for breathing. Trial sidelying trio. Progress CS swapna into small ROM for rot away from neutral, can trial added band. Trial CS swapna at wall w/ ball. Cont work on scap depression and overall scap mobility curt with cervical spine, may trial pool noodle vs seated TS ext and rot. Progress w/ RTC strength, rows, low rows Manual STM to L and R neck/ scap. Can trial taping as needed
--- NOTE | 2024-04-27 15:56 | PT.OPPOC ---
Physical, Occupational & Speech Therapy At [facility] Current Diagnoses Stiffness of other specified joint, not elsewhere classified (04/27/24) Cervicalgia (04/27/24) Paresthesia of skin (04/27/24) Other lack of coordination (04/27/24) Weakness (04/27/24) Visit Care Team Role Provider Type Eddie Garcia DO Primary Care Provider Physician Specialty: Family Practice Address: [address] [place] [address], [address], [place], [address] Email: [email or web address] David Dewitt DO Family Provider Physician Specialty: Family Practice Address: [address] [place] [address], [id number] Email: Jethro Arellano MD Attending Provider Non-Staff Referring Provider Specialty: Neurology Address: [address] [place] [address], [id number] Email: Plan Of Care PT-OP-B Current Condition Start: 04/05/24 16:11 Freq: Status: Active Protocol: Document 04/06/24 10:42 NM (Rec: 04/06/24 11:33 NM [id number]) Current Condition History of Current Condition Onset Date chronic Current Complaints pain, spasms History of Current Condition Pt presents with neck pain. He reports spasms that sets of migraines. He is getting trigger point injections for pain with Dr. Arellano; has had about 6 rounds. Pt planning to get a MRI, has to have PT. He reports spasms are worse with looking down, occasionally with looking up, turning L. Pain is worse on L side, never on R side. Has had 2 cervical fusions in 1995 (C3-C4 fusion ) and then more recently in 2020 (C6-C6 and screw in C6). He reports that he has had neck pain still since 2020. He has seen pain management. Pt numbness/tingling from posterior R shoulder down R arm into fingers 4-5 (numb/ tingling); has had since recovery from 2020 fusion. Achiness in R arm is worse in am and pm. He has an appt with Dr. Hardy next week for pain management. Pt has hx of severe 2nd and 3rd deg [place], 95% coverage from abdomen; about 35 years ago. Has cervical spine and lumbar spine fusions Treatment Goals Patient/Caregiver Goals open to any solutions Current Functional Impairments (Reported) Functional Limitations- ADL's reaching for top shelf doing dishes/looking down PT-OP-T Assessment and Plan Start: 04/05/24 16:11 Freq: Status: Active Protocol: Document 04/27/24 11:32 NM (Rec: 04/27/24 12:22 NM [id number]) Physical Therapy Assessment Goals 3 Impairment pain with sleeping, ADLs Impairment . Sample Collector Goal (LTG) Pt will be educated on body mechanics and ergonomics to improve posture and ability to perform ADLs with less pain LTG Duration 10 weeks 2 Impairment pain with ADLs; NDI 46/100, quickdash 50% impairment Impairment . Sample Collector Goal (LTG) Pt will decrease NDI impairment to <25% in order to demonstrate improvements in ability to perform ADLs/IADLs with less pain 04/27/24: 44% impairment, mild improvement from evaluation LTG Duration 10 weeks 1 Impairment not performing HEP Impairment . Fdc Goal (LTG) Pt will be IND with HEP at least 3x/wk in order to maximize progress with PT and transition to maitenance program upon discharge from PT 04/27/24: compliant with HEP prior to hospitalization LTG Duration 8 weeks Progress Towards Goals Progress Towards Goals Progressing Toward Goals,Slow Progress due to Activity Tolerance Assessment Summary Assessment Pt has been seen 4 visits following evaluation for neck and radicular pain in March 2024. He recently was in the hospital for several days following a bout of pneumonia, thus re-assessed for changes condition related to sickness. Pt missed sessions due to illness, thus extending plan of care. Pt continues to have same pain symptoms, including R radicular pain. Following time in hospital, pt has increased soft tissue restrictions in his neck which affect his symptoms. Pt demos mild improvements in cervical spine ROM and strength, still limited by joint fusion. His NDI improved by a few points. Pt still very limited in managing pain and performing ADLs due to neck pain. He is waiting to receive authorization for a MRI and further assessment from a neurosurgeon. Pt would continue to benefit from skilled PT for progressive strengthening of cervical spine/tr[place]oulders and flexibility of shoulder musculature in order to improve symptom management and ability to perform ADLs with less discomfort. Physical Therapy Plan Frequency and Duration Frequency of Treatment 2x/Week Duration of treatment (weeks) 8 Plan of Care Start Date 04/27/24 Plan of Care End Date 06/22/24 Therapeutic Interventions Therapeutic Interventions Gait Training,Home Exercise Program,Joint Mobilizations, Manual Therapy,Neuromuscular Re-education,Patient/Caregiver Education,Self-Care/Home Management,Sensory Integration ,Soft Tissue Mobilization, Taping,Therapeutic Activities, Therapeutic Exercises Modalities Cold Pack/Ice Massage,Hot Packs Next Visit Focus/Plan Next Note Type Treatment Note Next Visit Plan cervical and lumbar fusions* * Review periscapular strength, progress as tolerated. Wall posture. Ok for supine/ sidelying as long as monitored for breathing. Trial sidelying trio. Progress CS swapna into small ROM for rot away from neutral, can trial added band. Trial CS swapna at wall w/ ball. Cont work on scap depression and overall scap mobility curt with cervical spine, may trial pool noodle vs seated TS ext and rot. Progress w/ RTC strength, rows, low rows Manual STM to L and R neck/ scap. Can trial taping as needed Plan of Care Dates Plan of Care Start Date 04/27/24 Plan of Care End Date 06/22/24 Electronically Signed by: Dahlia Blackmon, PT 04/27/24 4416 If you are in agreement with this Plan of Care, please return a signed and dated copy. I have reviewed this Plan of Care and certify that the skilled therapy services above are required to meet the patient?s needs. Physician Signature Date Printed Name and Credentials Clinical Instructor Signature Printed Name and Credentials
--- NOTE | 2024-05-01 14:31 | PT.OTN ---
Current Diagnoses Stiffness of other specified joint, not elsewhere classified (05/01/24) Cervicalgia (05/01/24) Paresthesia of skin (05/01/24) Other lack of coordination (05/01/24) Weakness (05/01/24) Physical Therapy Treatment Note PT-OP-A Visit Information Start: 04/05/24 16:11 Freq: Status: Active Protocol: Document 05/01/24 13:49 NM (Rec: 05/01/24 14:16 NM [id number]) Out-Patient Physical Therapy Visit Information Visit Information Visit Type Treatment Note Visit Note KX for all visits Visit Start Time 13:49 Visit Stop Time 14:27 Visit Number 6 Evaluation Information Evaluation Date 04/06/24 Precautions Precautions cervical and lumbar fusions, hx of thoracic compression fracture and anterior wedge deformities; cardiac stents PT-OP-B Current Condition Start: 04/05/24 16:11 Freq: Status: Active Protocol: Document 04/06/24 10:42 NM (Rec: 04/06/24 11:33 NM [id number]) Current Condition History of Current Condition Onset Date chronic Current Complaints pain, spasms History of Current Condition Pt presents with neck pain. He reports spasms that sets of migraines. He is getting trigger point injections for pain with Dr. Arellano; has had about 6 rounds. Pt planning to get a MRI, has to have PT. He reports spasms are worse with looking down, occasionally with looking up, turning L. Pain is worse on L side, never on R side. Has had 2 cervical fusions in 1995 (C3-C4 fusion ) and then more recently in 2020 (C6-C6 and screw in C6). He reports that he has had neck pain still since 2020. He has seen pain management. Pt numbness/tingling from posterior R shoulder down R arm into fingers 4-5 (numb/ tingling); has had since recovery from 2020 fusion. Achiness in R arm is worse in am and pm. He has an appt with Dr. Hardy next week for pain management. Pt has hx of severe 2nd and 3rd deg [place], 95% coverage from abdomen; about 35 years ago. Has cervical spine and lumbar spine fusions Treatment Goals Patient/Caregiver Goals open to any solutions Current Functional Impairments (Reported) Functional Limitations- ADL's reaching for top shelf doing dishes/looking down PT-OP-C Subjective Start: 04/05/24 16:11 Freq: Status: Active Protocol: Document 05/01/24 13:49 NM (Rec: 05/01/24 14:16 NM [id number]) OP-PT Subjective Patient Comments Patient Comments Pt reports that his R side of his neck had spasms, has since stopped. Still has L spasms today. He reports that he felt good after last session, did not have the spasms or tightness for several days. PT-OP-F Manual Assessment Start: 04/05/24 16:11 Freq: Status: Active Protocol: Document 04/06/24 10:42 NM (Rec: 04/06/24 11:33 NM [id number]) Manual Assessments Soft Tissue Assessment Soft Tissue Mobility Assessment Demos increased restrictions of B thoracic R>L and cervical paraspinals L>R especially at posterior cuff/lat and posterior SCM Joint Mobility Assessment Joint Mobility Assessment Decreased scapular mobility B, decreased cervica/thoracic/ lumbar mobility PT-OP-G Mobility & Gait Start: 04/05/24 16:11 Freq: Status: Active Protocol: Document 04/06/24 10:42 NM (Rec: 04/06/24 12:50 NM [id number]) OP Gait Assessment Gait Gait Assistance Required: Independent Distance (Feet) 150 Assistive Devices Assistive Device None Comments Gait Comments Demos decreased trunk rotation , very stiff posture during gait PT-OP-H Neuro Start: 04/05/24 16:11 Freq: Status: Active Protocol: Document 04/06/24 10:42 NM (Rec: 04/06/24 11:33 NM [id number]) Sensation Evaluation Comments Summary Comments Reports heightened sensation along following dermatomes compared to contralateral side to light touch sensation C7, C8, T1, T2, C3-C5 Deep Tendon Reflex & Clonus Assessment Deep Tendon Reflex Bilateral Tricep Deep Tendon Reflex 1+ Diminished Bilateral Bicep Deep Tendon Reflex 1+ Diminished Bilateral Brachioradialis Deep Tendon Reflex 1+ Diminished PT-OP-J Posture/Palpation/Skin Start: 04/05/24 16:11 Freq: Status: Active Protocol: Document 04/06/24 10:42 NM (Rec: 04/06/24 11:33 NM [id number]) Posture Evaluation Position Standing Head/C-Spine Posture Forward Head T-Spine Posture Increased Kyphosis L-Spine Posture Decreased Lordosis Shoulder Posture (L) Rounded,(R) Rounded Scapula Posture (R) Protracted Arm Posture (L) Internally Rotated,(R) Internally Rotated Comments Posture Comments trunk stiffness Palpation Assessment Location cervical spine Palpation Details Tenderness along L tranverse processes especially into lower cervical spine; L SCM, R scapula. Soft tissue restrictions of paraspinals and periscapulars no point tenderness to cervical spinous processes PT-OP-K Range of Motion Start: 04/05/24 16:11 Freq: Status: Active Protocol: Document 04/27/24 11:32 NM (Rec: 04/27/24 12:22 NM [id number]) Cervical Spine Range of Motion Cervical Spine Active Degrees Flexion 30 Extension 25 Rotation Left 38 Rotation Right 42 Lateral Flexion Left 15 Lateral Flexion Right 15 Comments pain with flexion and extension, L LF, R rotation 04/27/24: 35 deg flex, 30 deg ext, 20 deg LF, 15 deg L LF, 40 deg L rot, 45 deg R rot PT-OP-L Special Tests Start: 04/05/24 16:11 Freq: Status: Active Protocol: Document 04/10/24 09:47 NM (Rec: 04/10/24 10:43 NM [id number]) Special Tests Cervical Spine Special Tests Vertebral A. screen Test Results BP 118/75 mmHg; no positional test d/t fusion; cont assess PNS Comments cardiac and carotid a. ausc/ palp WLF- has stents; CN 1-6,8 ,10-11 intact Spurling's Test Results + Comments no compression ULTT Test Results + Comments radial and ulnar nn. PT-OP-M Strength Start: 04/05/24 16:11 Freq: Status: Active Protocol: Document 04/27/24 11:32 NM (Rec: 04/27/24 12:22 NM [id number]) Cervical Spine Strength Cervical Spine Manual Muscle Testing Flexion (C1-2) 4- Good- Extension 3+ Fair+ Rotation Left 4- Good- Rotation Right 4- Good- Lateral Flexion Left (C3) 4- Good- Lateral Flexion Right (C3) 4- Good- Comments extension worst but slight increase PT-OP-Q Treatments Start: 04/05/24 16:11 Freq: Status: Active Protocol: Document 05/01/24 13:49 NM (Rec: 05/01/24 14:16 NM [id number]) Therapeutic Exercises Sitting Exercises thoracic mobility Sitting Exercise Name 1. ext, 2. rot Side bilateral Equipment Used pillow behind back in chair Reps/Minutes 10 ea Comments limited ROM d/t hx of fusions, cued pain free Standing Exercises Lift offs Standing Exercise Name 1. Y lift offs, 2. W lift offs Side bilateral Equipment Used ball at head Reps/Minutes 2x5 ea Comments cued scap activation row & low row Standing Exercise Name 1. rows, 2, low rows, 3. low row w/ CS rot, 4. low row w/ CS Lat flex Side bilateral Resistance level 3 band Equipment Used staggered stance Reps/Minutes 1-2. 2x10 ea, 3-4. 8 ea side Comments verbal and tactile cues for form, scap motions Manual Therapy Treatment Consent Patient gave verbal consent for manual Yes treatment Soft Tissue Mobilization R shoulder Body Location periscapular, lat, post cuff Mobilization Type Rolling,Strumming,Sustained Pressure,Trigger Point Release Intensity/Depth Moderate Body Position Sitting Comments Monitored for pain cervical spine Body Location SCM, SOR, scalenes, pec, LS, traps Mobilization Type Rolling,Strumming,Sustained Pressure,Trigger Point Release Intensity/Depth Moderate Body Position supine,sidelying Comments Performed mobilization w/ movement, cueing for breathwork. Spasms and increased tightness on L side, observable and palpable. reduced with manual treatment but not eliminated Joint Mobilizations scapular Direction upwd/dwd rot, elev/dep Grade III Body Position Sidelying Reps/Duration 15 ea Comments monitored for pain. reports muscles feel better following scapular mobilizations. Has increased tingling into R arm with w/ increased reps on R side PT-OP-T Assessment and Plan Start: 04/05/24 16:11 Freq: Status: Active Protocol: Document 05/01/24 13:49 NM (Rec: 05/01/24 14:16 NM [id number]) Physical Therapy Assessment Goals 3 Impairment pain with sleeping, ADLs Impairment . Senior Living Goal (LTG) Pt will be educated on body mechanics and ergonomics to improve posture and ability to perform ADLs with less pain LTG Duration 10 weeks 2 Impairment pain with ADLs; NDI 46/100, quickdash 50% impairment Impairment . [employer] Worker Goal (LTG) Pt will decrease NDI impairment to <25% in order to demonstrate improvements in ability to perform ADLs/IADLs with less pain 04/27/24: 44% impairment, mild improvement from evaluation LTG Duration 10 weeks 1 Impairment not performing HEP Impairment . [employer] Worker Goal (LTG) Pt will be IND with HEP at least 3x/wk in order to maximize progress with PT and transition to [facility] upon discharge from PT 04/27/24: compliant with HEP prior to hospitalization LTG Duration 8 weeks Assessment Summary Assessment Pt tolerated session well. Reports soreness but not pain at end of session, less muscle tension. Pt responds well to increased resistance with periscapular resisted exercises. Good feedback for wall periscapular strengthening, better scapular activation and more movement compared to previous sessions. Cueing needed for correct execution and scapular control . Limited by muscle restrictions. Pt would continue to benefit from skilled PT for progressive strengthening in order to improve symptom management and flexibility during ADLs. Physical Therapy Plan Frequency and Duration Frequency of Treatment 2x/Week Duration of treatment (weeks) 8 Plan of Care Start Date 04/27/24 Plan of Care End Date 06/22/24 Therapeutic Interventions Therapeutic Interventions Gait Training,Home Exercise Program,Joint Mobilizations, Manual Therapy,Neuromuscular Re-education,Patient/Caregiver Education,Self-Care/Home Management,Sensory Integration ,Soft Tissue Mobilization, Taping,Therapeutic Activities, Therapeutic Exercises Modalities Cold Pack/Ice Massage,Hot Packs Next Visit Focus/Plan Next Note Type Treatment Note Next Visit Plan cervical and lumbar fusions* * Review periscapular strength, progress as tolerated. Wall posture w/ snow angels, bands. Ok for supine/sidelying as long as monitored for breathing. Standing CS swapna at wall w/ ball. Trial sidelying trio. Progress CS swapna into small ROM for rot away from neutral, can trial added band. Cont work on scap depression and overall scap mobility curt with cervical spine, may trial pool noodle vs seated TS ext and rot. Progress w/ RTC strength, rows, low rows Manual STM to L and R neck/ scap. Can trial taping as needed
--- NOTE | 2024-05-03 14:35 | PT.OTN ---
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 He reports spasms that sets of migraines. He is getting trigger point injections for pain with Dr. Arellano; has had about 6 rounds. Pt planning to get a MRI, has to have PT. He reports spasms are worse with looking down, occasionally with looking up, turning L. Pain is worse on L side, never on R side. Has had 2 cervical fusions in 1995 (C3-C4 fusion ) and then more recently in 2020 (C6-C6 and screw in C6). He reports that he has had neck pain still since 2020. He has seen pain management. Pt numbness/tingling from posterior R shoulder down R arm into fingers 4-5 (numb/ tingling); has had since recovery from 2020 fusion. Achiness in R arm is worse in am and pm. He has an appt with Dr. Hardy next week for pain management. Pt has hx of severe 2nd and 3rd deg [place], 95% coverage from abdomen; about 35 years ago. Has cervical spine and lumbar spine fusions Treatment Goals Patient/Caregiver Goals open to any solutions Current Functional Impairments (Reported) Functional Limitations- ADL's reaching for top shelf doing dishes/looking down PT-OP-C Subjective Start: 04/05/24 16:11 Freq: Status: Active Protocol: Document 05/03/24 13:50 SP (Rec: 05/03/24 15:13 SP [id number]) OP-PT Subjective Patient Comments Patient Comments Pt reports neck and R anterior shld tight and slight nasal talking, stated has been about 1 week since pneumonia symptoms, thinks still has little more fully recover. Had LS MRI earlier today, soreness in LB laying down for PT. Noted more soreness than usual after last tx, thinks the wall Ys and Ws might have been to much. Awaiting if will need further imaging for neck and R shld, has been about 6 weeks, which was told to participate with PT to see if could support pain relief and mobility vs need for MRI neck/ R shld, not feeling signifcant change in R shld ROM over head and pain with little more after OH Ys, Ws worse. PT-OP-F Manual Assessment Start: 04/05/24 16:11 Freq: Status: Active Protocol: Document 04/06/24 10:42 NM (Rec: 04/06/24 11:33 NM [id number]) Manual Assessments Soft Tissue Assessment Soft Tissue Mobility Assessment Demos increased restrictions of B thoracic R>L and cervical paraspinals L>R especially at posterior cuff/lat and posterior SCM Joint Mobility Assessment Joint Mobility Assessment Decreased scapular mobility B, decreased cervica/thoracic/ lumbar mobility PT-OP-G Mobility & Gait Start: 04/05/24 16:11 Freq: Status: Active Protocol: Document 04/06/24 10:42 NM (Rec: 04/06/24 12:50 NM [id number]) OP Gait Assessment Gait Gait Assistance Required: Independent Distance (Feet) 150 Assistive Devices Assistive Device None Comments Gait Comments Demos decreased trunk rotation , very stiff posture during gait PT-OP-H Neuro Start: 04/05/24 16:11 Freq: Status: Active Protocol: Document 04/06/24 10:42 NM (Rec: 04/06/24 11:33 NM [id number]) Sensation Evaluation Comments Summary Comments Reports heightened sensation along following dermatomes compared to contralateral side to light touch sensation C7, C8, T1, T2, C3-C5 Deep Tendon Reflex & Clonus Assessment Deep Tendon Reflex Bilateral Tricep Deep Tendon Reflex 1+ Diminished Bilateral Bicep Deep Tendon Reflex 1+ Diminished Bilateral Brachioradialis Deep Tendon Reflex 1+ Diminished PT-OP-J Posture/Palpation/Skin Start: 04/05/24 16:11 Freq: Status: Active Protocol: Document 04/06/24 10:42 NM (Rec: 04/06/24 11:33 NM [id number]) Posture Evaluation Position Standing Head/C-Spine Posture Forward Head T-Spine Posture Increased Kyphosis L-Spine Posture Decreased Lordosis Shoulder Posture (L) Rounded,(R) Rounded Scapula Posture (R) Protracted Arm Posture (L) Internally Rotated,(R) Internally Rotated Comments Posture Comments trunk stiffness Palpation Assessment Location cervical spine Palpation Details Tenderness along L tranverse processes especially into lower cervical spine; L SCM, R scapula. Soft tissue restrictions of paraspinals and periscapulars no point tenderness to cervical spinous processes PT-OP-K Range of Motion Start: 04/05/24 16:11 Freq: Status: Active Protocol: Document 04/27/24 11:32 NM (Rec: 04/27/24 12:22 NM [id number]) Cervical Spine Range of Motion Cervical Spine Active Degrees Flexion 30 Extension 25 Rotation Left 38 Rotation Right 42 Lateral Flexion Left 15 Lateral Flexion Right 15 Comments pain with flexion and extension, L LF, R rotation 04/27/24: 35 deg flex, 30 deg ext, 20 deg LF, 15 deg L LF, 40 deg L rot, 45 deg R rot PT-OP-L Special Tests Start: 04/05/24 16:11 Freq: Status: Active Protocol: Document 04/10/24 09:47 NM (Rec: 04/10/24 10:43 NM [id number]) Special Tests Cervical Spine Special Tests Vertebral A. screen Test Results BP 118/75 mmHg; no positional test d/t fusion; cont assess PNS Comments cardiac and carotid a. ausc/ palp WLF- has stents; CN 1-6,8 ,10-11 intact Spurling's Test Results + Comments no compression ULTT Test Results + Comments radial and ulnar nn. PT-OP-M Strength Start: 04/05/24 16:11 Freq: Status: Active Protocol: Document 04/27/24 11:32 NM (Rec: 04/27/24 12:22 NM [id number]) Cervical Spine Strength Cervical Spine Manual Muscle Testing Flexion (C1-2) 4- Good- Extension 3+ Fair+ Rotation Left 4- Good- Rotation Right 4- Good- Lateral Flexion Left (C3) 4- Good- Lateral Flexion Right (C3) 4- Good- Comments extension worst but slight increase PT-OP-Q Treatments Start: 04/05/24 16:11 Freq: Status: Active Protocol: Document 05/03/24 13:50 SP (Rec: 05/03/24 15:13 SP [id number]) Therapeutic Exercises Supine Exercises HABD Supine Exercise Name discussed continue performance pre Ys/Ws wall pec stretch Supine Exercise Name discussed continue performance pre Ys/Ws wall Sidelying Exercises Shoulder trio Sidelying Exercise Name post manual: FF, ABD, HABD Side right Resistance AROM Reps/Minutes 5 reps each after AAROM manual MWM Comments improved mobility- discussed possibly perform pre Ys/Ws wall- declined HO Standing Exercises Lift offs Standing Exercise Name 1. Y lift offs, 2. W lift offs - ed perform after Side bilateral Equipment Used towel roll front of head- facing wall Reps/Minutes 2x5 ea end tx Comments cued elongated posture, scap UR and depression glide, less neck tension Manual Therapy Treatment Consent Patient gave verbal consent for manual Yes treatment Soft Tissue Mobilization R shoulder Body Location periscapular, lat, SA, post cuff, subclav, pec, prox tricep Mobilization Type Rolling,Strumming,Sustained Pressure,Trigger Point Release Intensity/Depth Moderate Body Position Hooklying & L SL Comments STMs, MWM R arm AROM multidirectional: FF, ABD, HABD, elbow flex/ext at supported 90 deg ABD. Reduced tightness with manual treatment, increased ROM but not eliminated. cervical spine Body Location R>L: CS paraspinal, SCM, SOR, scalenes, LS, traps Mobilization Type Rolling,Strumming,Sustained Pressure,Other Intensity/Depth Moderate Body Position Hooklying Comments Performed mobilization w/ movement, cueing for breathwork. Reports L side spasmins, not palpated, more R side tightness palpable. reduced with manual treatment but not eliminated. Joint Mobilizations scapular Direction upwd/dwd rot, elev/dep Grade III Body Position Sidelying Reps/Duration 15 ea Comments monitored for pain. reports muscles feel better following scapular mobilizations. No Tingling in reported today. Self-Care/Home Management Treatment Education Patient Education Body Mechanics,Pain Management ,Posture Other Education Education on anatomy and of R shld, clavicle, scap complex during manual and progressed AROM FF, ABD, HABD, improved mobility. Carryover education walking arm swing with ribcage & TS rotation and aware head turning needed for safety visual scanning in community parkinglot for progressing functional mobility. Education BIGGER motion arm swing on self awareness scale, reported 4/10 and discussed increase arc reports 6/10 with less tension in neck and back, especially after manual work. PT-OP-T Assessment and Plan Start: 04/05/24 16:11 Freq: Status: Active Protocol: Document 05/03/24 13:50 SP (Rec: 05/03/24 15:13 SP [id number]) Physical Therapy Assessment Goals 3 Impairment pain with sleeping, ADLs Impairment . Long-Term Goal (LTG) Pt will be educated on body mechanics and ergonomics to improve posture and ability to perform ADLs with less pain LTG Duration 10 weeks 2 Impairment pain with ADLs; NDI 46/100, quickdash 50% impairment Impairment . Campaign Marketing Specialist Goal (LTG) Pt will decrease NDI impairment to <25% in order to demonstrate improvements in ability to perform ADLs/IADLs with less pain 04/27/24: 44% impairment, mild improvement from evaluation LTG Duration 10 weeks 1 Impairment not performing HEP Impairment . Long-Term Goal (LTG) Pt will be IND with HEP at least 3x/wk in order to maximize progress with PT and transition to [facility] program upon discharge from PT 04/27/24: compliant with HEP prior to hospitalization LTG Duration 8 weeks Assessment Summary Assessment Pt tolerated session well. Tx more focused on manual and neck and scapular mobility pre therex. Improved R scapular mobility UE over head Ys and Ws at wall after manual and less neck tension. Education provided for carryover arms swing and TS mobility walking and cervical rotation pnfree range and visual scanning needed for progression keep mobility gained during tx with no pain, learned use scale 10 for self awareness of BIGGER motions carryover, pnfree. Physical Therapy Plan Frequency and Duration Frequency of Treatment 2x/Week Duration of treatment (weeks) 8 Plan of Care Start Date 04/27/24 Plan of Care End Date 06/22/24 Therapeutic Interventions Therapeutic Interventions Gait Training,Home Exercise Program,Joint Mobilizations, Manual Therapy,Neuromuscular Re-education,Patient/Caregiver Education,Self-Care/Home Management,Sensory Integration ,Soft Tissue Mobilization, Taping,Therapeutic Activities, Therapeutic Exercises Modalities Cold Pack/Ice Massage,Hot Packs Next Visit Focus/Plan Next Note Type Treatment Note Next Visit Plan cervical and lumbar fusions* * Check response to manual and scapular OH wall HEP tolerance . If needed sidelying Shld trio HOs. POC: Review periscapular strength, progress as tolerated. Wall posture w/ snow angels, bands. Ok for supine/sidelying as long as monitored for breathing. Standing CS swapna at wall w/ ball. Trial sidelying trio. Progress CS swapna into small ROM for rot away from neutral, can trial added band. Cont work on scap depression and overall scap mobility curt with cervical spine, may trial pool noodle vs seated TS ext and rot. Progress w/ RTC strength, rows, low rows Manual STM to L and R neck/ scap. Can trial taping as needed
--- NOTE | 2024-05-11 15:27 | PT.OTN ---
Current Diagnoses Stiffness of other specified joint, not elsewhere classified (05/11/24) Cervicalgia (05/11/24) Paresthesia of skin (05/11/24) Other lack of coordination (05/11/24) Weakness (05/11/24) Physical Therapy Treatment Note PT-OP-A Visit Information Start: 04/05/24 16:11 Freq: Status: Active Protocol: Document 05/11/24 13:49 NM (Rec: 05/11/24 14:33 NM [id number]) Out-Patient Physical Therapy Visit Information Visit Information Visit Type Treatment Note Visit Note KX for all visits Visit Start Time 13:50 Visit Stop Time 14:30 Visit Number 8 (07/30 post PN) Evaluation Information Evaluation Date 04/06/24 Precautions Precautions cervical and lumbar fusions, hx of thoracic compression fracture and anterior wedge deformities; cardiac stents PT-OP-B Current Condition Start: 04/05/24 16:11 Freq: Status: Active Protocol: Document 04/06/24 10:42 NM (Rec: 04/06/24 11:33 NM [id number]) Current Condition History of Current Condition Onset Date chronic Current Complaints pain, spasms History of Current Condition Pt presents with neck pain. He reports spasms that sets of migraines. He is getting trigger point injections for pain with Dr. Arellano; has had about 6 rounds. Pt planning to get a MRI, has to have PT. He reports spasms are worse with looking down, occasionally with looking up, turning L. Pain is worse on L side, never on R side. Has had 2 cervical fusions in 1995 (C3-C4 fusion ) and then more recently in 2020 (C6-C6 and screw in C6). He reports that he has had neck pain still since 2020. He has seen pain management. Pt numbness/tingling from posterior R shoulder down R arm into fingers 4-5 (numb/ tingling); has had since recovery from 2020 fusion. Achiness in R arm is worse in am and pm. He has an appt with Dr. Hardy next week for pain management. Pt has hx of severe 2nd and 3rd deg [place], 95% coverage from abdomen; about 35 years ago. Has cervical spine and lumbar spine fusions Treatment Goals Patient/Caregiver Goals open to any solutions Current Functional Impairments (Reported) Functional Limitations- ADL's reaching for top shelf doing dishes/looking down PT-OP-C Subjective Start: 04/05/24 16:11 Freq: Status: Active Protocol: Document 05/11/24 13:49 NM (Rec: 05/11/24 14:33 NM [id number]) OP-PT Subjective Patient Comments Patient Comments Pt reports had a headache start last night, turned into a migraine; better with tramadol and neurotriptin. He reports today is not a good day. He states at this he feels pressure in his head, but states it does not hurt. Reports that he had had worse headaches before. No changes to consciousness, vision, etc. He reports that the exercises tend to stiffen the muscles. He is unsure if he wants to continue with PT because unsure if he can push through the habits of 80 years. However, still waiting for cervical spine MRI, will follow up with Dr. Arellano afterward. Planning to continue with PT in meantime per conversation with PT at end of session PT-OP-F Manual Assessment Start: 04/05/24 16:11 Freq: Status: Active Protocol: Document 04/06/24 10:42 NM (Rec: 04/06/24 11:33 NM [id number]) Manual Assessments Soft Tissue Assessment Soft Tissue Mobility Assessment Demos increased restrictions of B thoracic R>L and cervical paraspinals L>R especially at posterior cuff/lat and posterior SCM Joint Mobility Assessment Joint Mobility Assessment Decreased scapular mobility B, decreased cervica/thoracic/ lumbar mobility PT-OP-G Mobility & Gait Start: 04/05/24 16:11 Freq: Status: Active Protocol: Document 04/06/24 10:42 NM (Rec: 04/06/24 12:50 NM [id number]) OP Gait Assessment Gait Gait Assistance Required: Independent Distance (Feet) 150 Assistive Devices Assistive Device None Comments Gait Comments Demos decreased trunk rotation , very stiff posture during gait PT-OP-H Neuro Start: 04/05/24 16:11 Freq: Status: Active Protocol: Document 04/06/24 10:42 NM (Rec: 04/06/24 11:33 NM [id number]) Sensation Evaluation Comments Summary Comments Reports heightened sensation along following dermatomes compared to contralateral side to light touch sensation C7, C8, T1, T2, C3-C5 Deep Tendon Reflex & Clonus Assessment Deep Tendon Reflex Bilateral Tricep Deep Tendon Reflex 1+ Diminished Bilateral Bicep Deep Tendon Reflex 1+ Diminished Bilateral Brachioradialis Deep Tendon Reflex 1+ Diminished PT-OP-J Posture/Palpation/Skin Start: 04/05/24 16:11 Freq: Status: Active Protocol: Document 04/06/24 10:42 NM (Rec: 04/06/24 11:33 NM [id number]) Posture Evaluation Position Standing Head/C-Spine Posture Forward Head T-Spine Posture Increased Kyphosis L-Spine Posture Decreased Lordosis Shoulder Posture (L) Rounded,(R) Rounded Scapula Posture (R) Protracted Arm Posture (L) Internally Rotated,(R) Internally Rotated Comments Posture Comments trunk stiffness Palpation Assessment Location cervical spine Palpation Details Tenderness along L tranverse processes especially into lower cervical spine; L SCM, R scapula. Soft tissue restrictions of paraspinals and periscapulars no point tenderness to cervical spinous processes PT-OP-K Range of Motion Start: 04/05/24 16:11 Freq: Status: Active Protocol: Document 04/27/24 11:32 NM (Rec: 04/27/24 12:22 NM [id number]) Cervical Spine Range of Motion Cervical Spine Active Degrees Flexion 30 Extension 25 Rotation Left 38 Rotation Right 42 Lateral Flexion Left 15 Lateral Flexion Right 15 Comments pain with flexion and extension, L LF, R rotation 04/27/24: 35 deg flex, 30 deg ext, 20 deg LF, 15 deg L LF, 40 deg L rot, 45 deg R rot PT-OP-L Special Tests Start: 04/05/24 16:11 Freq: Status: Active Protocol: Document 04/10/24 09:47 NM (Rec: 04/10/24 10:43 NM [id number]) Special Tests Cervical Spine Special Tests Vertebral A. screen Test Results BP 118/75 mmHg; no positional test d/t fusion; cont assess PNS Comments cardiac and carotid a. ausc/ palp WLF- has stents; CN 1-6,8 ,10-11 intact Spurling's Test Results + Comments no compression ULTT Test Results + Comments radial and ulnar nn. PT-OP-M Strength Start: 04/05/24 16:11 Freq: Status: Active Protocol: Document 04/27/24 11:32 NM (Rec: 04/27/24 12:22 NM [id number]) Cervical Spine Strength Cervical Spine Manual Muscle Testing Flexion (C1-2) 4- Good- Extension 3+ Fair+ Rotation Left 4- Good- Rotation Right 4- Good- Lateral Flexion Left (C3) 4- Good- Lateral Flexion Right (C3) 4- Good- Comments extension worst but slight increase PT-OP-Q Treatments Start: 04/05/24 16:11 Freq: Status: Active Protocol: Document 05/11/24 13:49 NM (Rec: 05/11/24 14:33 NM [id number]) Therapeutic Exercises Standing Exercises HABD Standing Exercise Name just under 90 deg Side bilateral Resistance AROM Reps/Minutes 15 scapular depression Standing Exercise Name with band behind pt at wall Side bilateral Resistance level 1 Reps/Minutes 15 ea Comments cued for form row & low row Standing Exercise Name 1. rows, 2, low rows HEP Side bilateral Resistance level 3 band Equipment Used staggered stance Reps/Minutes 2x15 ea Comments cued no shoulder elevation nerve glides Standing Exercise Name radial, median, ulnar Side right Reps/Minutes 8 total Comments no increase in symptoms Manual Therapy Treatment Consent Patient gave verbal consent for manual Yes treatment Soft Tissue Mobilization cervical spine Body Location R>L: CS paraspinal, SCM, SOR, scalenes, LS, traps Mobilization Type Rolling,Strumming,Sustained Pressure,Other Intensity/Depth Moderate Body Position Sitting Comments Sitting today due to reports of spasms over last several days. Arms supported on pillows in front of pt. More tightness on R side than L today, pt reports reduction with soft tissue mobilization PT-OP-T Assessment and Plan Start: 04/05/24 16:11 Freq: Status: Active Protocol: Document 05/11/24 13:49 NM (Rec: 05/11/24 14:33 NM [id number]) Physical Therapy Assessment Goals 3 Impairment pain with sleeping, ADLs Impairment . Forest Products Gatherer Goal (LTG) Pt will be educated on body mechanics and ergonomics to improve posture and ability to perform ADLs with less pain LTG Duration 10 weeks 2 Impairment pain with ADLs; NDI 46/100, quickdash 50% impairment Impairment . Forest Products Gatherer Goal (LTG) Pt will decrease NDI impairment to <25% in order to demonstrate improvements in ability to perform ADLs/IADLs with less pain 04/27/24: 44% impairment, mild improvement from evaluation LTG Duration 10 weeks 1 Impairment not performing HEP Impairment . Forest Products Gatherer Goal (LTG) Pt will be IND with HEP at least 3x/wk in order to maximize progress with PT and transition to [facility] program upon discharge from PT 04/27/24: compliant with HEP prior to hospitalization LTG Duration 8 weeks Assessment Summary Assessment Pt reponds well to soft tissue mobilization of cervical spine today. R sided more restricted than L side. Reviewed rows and low rows for better scapular facilitation on cervical spine. Added scapular depression with band for isolated scapular motion especially to promote lower trapezius activity for cervical spine stability. Cueing needed during all periscapular strengthening to limit shoulder elevation compensations. No increase in symptoms with neural gliding, reports better relief on L side as R side is gliding. Reports improved R scapular mobility at end of session, no pain. Physical Therapy Plan Frequency and Duration Frequency of Treatment 2x/Week Duration of treatment (weeks) 8 Plan of Care Start Date 04/27/24 Plan of Care End Date 06/22/24 Therapeutic Interventions Therapeutic Interventions Gait Training,Home Exercise Program,Joint Mobilizations, Manual Therapy,Neuromuscular Re-education,Patient/Caregiver Education,Self-Care/Home Management,Sensory Integration ,Soft Tissue Mobilization, Taping,Therapeutic Activities, Therapeutic Exercises Modalities Cold Pack/Ice Massage,Hot Packs Next Visit Focus/Plan Next Note Type Treatment Note Next Visit Plan cervical and lumbar fusions* * Check response to manual and scapular [place] wall HEP tolerance as needed. If needed sidelying Shld trio HOs. Cont with scapular activation within pain free ROM. Standing vs sitting HABD, add band if appropriate. POC: Review periscapular strength, progress as tolerated. Wall posture w/ snow angels, bands. Ok for supine/sidelying as long as monitored for breathing. Standing CS swapna at wall w/ ball. Trial sidelying trio. Progress CS swapna into small ROM for rot away from neutral, can trial added band. Cont work on scap depression and overall scap mobility curt with cervical spine, seated TS ext and rot. Progress w/ RTC strength, rows, low rows Manual STM to L and R neck/ scap. Can trial taping as needed
--- NOTE | 2024-05-15 11:25 | PT.OTN ---
Current Diagnoses Stiffness of other specified joint, not elsewhere classified (05/15/24) Cervicalgia (05/15/24) Paresthesia of skin (05/15/24) Other lack of coordination (05/15/24) Weakness (05/15/24) Physical Therapy Treatment Note PT-OP-A Visit Information Start: 04/05/24 16:11 Freq: Status: Active Protocol: Document 05/15/24 10:47 SP (Rec: 05/15/24 11:36 SP [id number]) Out-Patient Physical Therapy Visit Information Visit Information Visit Type Treatment Note Visit Note KX for all visits Visit Start Time 10:47 Visit Stop Time 11:25 Visit Number 9 (08/30 post PN) Number of FAST [employer] Visits 1 Evaluation Information Evaluation Date 04/06/24 Precautions Precautions cervical and lumbar fusions, hx of thoracic compression fracture and anterior wedge deformities; cardiac stents PT-OP-B Current Condition Start: 04/05/24 16:11 Freq: Status: Active Protocol: Document 04/06/24 10:42 NM (Rec: 04/06/24 11:33 NM [id number]) Current Condition History of Current Condition Onset Date chronic Current Complaints pain, spasms History of Current Condition Pt presents with neck pain. He reports spasms that sets of migraines. He is getting trigger point injections for pain with Dr. Arellano; has had about 6 rounds. Pt planning to get a MRI, has to have PT. He reports spasms are worse with looking down, occasionally with looking up, turning L. Pain is worse on L side, never on R side. Has had 2 cervical fusions in 1995 (C3-C4 fusion ) and then more recently in 2020 (C6-C6 and screw in C6). He reports that he has had neck pain still since 2020. He has seen pain management. Pt numbness/tingling from posterior R shoulder down R arm into fingers 4-5 (numb/ tingling); has had since recovery from 2020 fusion. Achiness in R arm is worse in am and pm. He has an appt with Dr. Hardy next week for pain management. Pt has hx of severe 2nd and 3rd deg [place], 95% coverage from abdomen; about 35 years ago. Has cervical spine and lumbar spine fusions Treatment Goals Patient/Caregiver Goals open to any solutions Current Functional Impairments (Reported) Functional Limitations- ADL's reaching for top shelf doing dishes/looking down PT-OP-C Subjective Start: 04/05/24 16:11 Freq: Status: Active Protocol: Document 05/15/24 10:47 SP (Rec: 05/15/24 11:36 SP [id number]) OP-PT Subjective Patient Comments Patient Comments Pt reports not seeing improvement in pain. He commented wonder if the year worth of taking Statin can be a contributer. [employer] suggested sending pt message to Physician for awareness and if can provide further assessment. Continue pain neck into R arm primarily. Has referral to [facility] for MRI and trying to get referral changed for here at [facility]. PT-OP-F Manual Assessment Start: 04/05/24 16:11 Freq: Status: Active Protocol: Document 04/06/24 10:42 NM (Rec: 04/06/24 11:33 NM [id number]) Manual Assessments Soft Tissue Assessment Soft Tissue Mobility Assessment Demos increased restrictions of B thoracic R>L and cervical paraspinals L>R especially at posterior cuff/lat and posterior SCM Joint Mobility Assessment Joint Mobility Assessment Decreased scapular mobility B, decreased cervica/thoracic/ lumbar mobility PT-OP-G Mobility & Gait Start: 04/05/24 16:11 Freq: Status: Active Protocol: Document 04/06/24 10:42 NM (Rec: 04/06/24 12:50 NM [id number]) OP Gait Assessment Gait Gait Assistance Required: Independent Distance (Feet) 150 Assistive Devices Assistive Device None Comments Gait Comments Demos decreased trunk rotation , very stiff posture during gait PT-OP-H Neuro Start: 04/05/24 16:11 Freq: Status: Active Protocol: Document 04/06/24 10:42 NM (Rec: 04/06/24 11:33 NM [id number]) Sensation Evaluation Comments Summary Comments Reports heightened sensation along following dermatomes compared to contralateral side to light touch sensation C7, C8, T1, T2, C3-C5 Deep Tendon Reflex & Clonus Assessment Deep Tendon Reflex Bilateral Tricep Deep Tendon Reflex 1+ Diminished Bilateral Bicep Deep Tendon Reflex 1+ Diminished Bilateral Brachioradialis Deep Tendon Reflex 1+ Diminished PT-OP-J Posture/Palpation/Skin Start: 04/05/24 16:11 Freq: Status: Active Protocol: Document 04/06/24 10:42 NM (Rec: 04/06/24 11:33 NM [id number]) Posture Evaluation Position Standing Head/C-Spine Posture Forward Head T-Spine Posture Increased Kyphosis L-Spine Posture Decreased Lordosis Shoulder Posture (L) Rounded,(R) Rounded Scapula Posture (R) Protracted Arm Posture (L) Internally Rotated,(R) Internally Rotated Comments Posture Comments trunk stiffness Palpation Assessment Location cervical spine Palpation Details Tenderness along L tranverse processes especially into lower cervical spine; L SCM, R scapula. Soft tissue restrictions of paraspinals and periscapulars no point tenderness to cervical spinous processes PT-OP-K Range of Motion Start: 04/05/24 16:11 Freq: Status: Active Protocol: Document 04/27/24 11:32 NM (Rec: 04/27/24 12:22 NM [id number]) Cervical Spine Range of Motion Cervical Spine Active Degrees Flexion 30 Extension 25 Rotation Left 38 Rotation Right 42 Lateral Flexion Left 15 Lateral Flexion Right 15 Comments pain with flexion and extension, L LF, R rotation 04/27/24: 35 deg flex, 30 deg ext, 20 deg LF, 15 deg L LF, 40 deg L rot, 45 deg R rot PT-OP-L Special Tests Start: 04/05/24 16:11 Freq: Status: Active Protocol: Document 04/10/24 09:47 NM (Rec: 04/10/24 10:43 NM [id number]) Special Tests Cervical Spine Special Tests Vertebral A. screen Test Results BP 118/75 mmHg; no positional test d/t fusion; cont assess PNS Comments cardiac and carotid a. ausc/ palp WLF- has stents; CN 1-6,8 ,10-11 intact Spurling's Test Results + Comments no compression ULTT Test Results + Comments radial and ulnar nn. PT-OP-M Strength Start: 04/05/24 16:11 Freq: Status: Active Protocol: Document 04/27/24 11:32 NM (Rec: 04/27/24 12:22 NM [id number]) Cervical Spine Strength Cervical Spine Manual Muscle Testing Flexion (C1-2) 4- Good- Extension 3+ Fair+ Rotation Left 4- Good- Rotation Right 4- Good- Lateral Flexion Left (C3) 4- Good- Lateral Flexion Right (C3) 4- Good- Comments extension worst but slight increase PT-OP-Q Treatments Start: 04/05/24 16:11 Freq: Status: Active Protocol: Document 05/15/24 10:47 SP (Rec: 05/15/24 11:36 SP [id number]) Therapeutic Exercises Sidelying Exercises Shoulder trio Sidelying Exercise Name post manual: FF, ABD, HABD ( has declined HO) Side right Resistance AROM Reps/Minutes 5 reps each after AAROM manual MWM Comments improved mobility- discussed possibly perform pre Ys/Ws wall Standing Exercises HABD Standing Exercise Name just under 90 deg Side bilateral Resistance TB #2 Reps/Minutes 15 Comments good postural form, no symptoms scapular depression Standing Exercise Name with band behind pt at wall Side bilateral Resistance level 2 Reps/Minutes 15 ea Comments cued for scap retraction, posterior depression glides form row & low row Standing Exercise Name 1. W (ER) rows 2. low rows HEP Side bilateral Resistance level 3 band Equipment Used staggered stance Reps/Minutes 2x15 alternating reps each Comments Improved LT and RHomboid fac with no shoulder elevation Manual Therapy Treatment Consent Patient gave verbal consent for manual Yes treatment Soft Tissue Mobilization chest/trunk Body Location B pecs, intercostals Mobilization Type Rolling,Sustained Pressure, Trigger Point Release Intensity/Depth Superficial Body Position Hooklying Comments Monitored for pain. Mild tenderness along R upper intercostals just below clavicle,STMs & MWM humeral IR /ER R shoulder Body Location subclav, bicep, pronator Teres Mobilization Type Rolling,Strumming,Sustained Pressure,Trigger Point Release Intensity/Depth Moderate Body Position Hooklying & L SL Comments STMs, MWM R arm AROM multidirectional: FF, ABD, HABD, elbow flex/ext- ed self application cervical spine Body Location R>L: CS paraspinal, SCM, SOR, scalenes, LS, traps Mobilization Type Rolling,Strumming,Sustained Pressure,Other Intensity/Depth Moderate Body Position Hooklying Comments More tightness on R side than L today, pt reports reduction with soft tissue mobilization and able turn head better PT-OP-T Assessment and Plan Start: 04/05/24 16:11 Freq: Status: Active Protocol: Document 05/15/24 10:47 SP (Rec: 05/15/24 11:36 SP [id number]) Physical Therapy Assessment Goals 3 Impairment pain with sleeping, ADLs Impairment . Fdc Goal (LTG) Pt will be educated on body mechanics and ergonomics to improve posture and ability to perform ADLs with less pain LTG Duration 10 weeks 2 Impairment pain with ADLs; NDI 46/100, quickdash 50% impairment Impairment . Fdc Goal (LTG) Pt will decrease NDI impairment to <25% in order to demonstrate improvements in ability to perform ADLs/IADLs with less pain 04/27/24: 44% impairment, mild improvement from evaluation LTG Duration 10 weeks 1 Impairment not performing HEP Impairment . Fdc Goal (LTG) Pt will be IND with HEP at least 3x/wk in order to maximize progress with PT [facility] 04/27/24: compliant with HEP prior to hospitalization LTG Duration 8 weeks Assessment Summary Assessment Pt improved demonstration retraction/depression glide during sidelying ther ex and standing today. Occasional cues for split stance and scapular glide inferior with elongated posturing and CS neutral during rows (#3) and HABD (#2) <90deg FF & ABD tolerated increased band resistance with no pain. Pt verbalized understanding contact physician regarding question of Statin med taking if can be contributer of pain having. Awaiting MRI change location to so can keep all in 1 location pt preferred. Physical Therapy Plan Frequency and Duration Frequency of Treatment 2x/Week Duration of treatment (weeks) 8 Plan of Care Start Date 04/27/24 Plan of Care End Date 06/22/24 Therapeutic Interventions Therapeutic Interventions Gait Training,Home Exercise Program,Joint Mobilizations, Manual Therapy,Neuromuscular Re-education,Patient/Caregiver Education,Self-Care/Home Management,Sensory Integration ,Soft Tissue Mobilization, Taping,Therapeutic Activities, Therapeutic Exercises Modalities Cold Pack/Ice Massage,Hot Packs Next Visit Focus/Plan Next Note Type Treatment Note Next Visit Plan cervical and lumbar fusions* * Check MRI, called Dr about Statin if can affect pain? Cont with scapular activation within pain free ROM. Standing vs sitting HABD, next tx add band if appropriate. POC: Review periscapular strength, progress as tolerated. Wall posture w/ snow angels, bands. Ok for supine/sidelying as long as monitored for breathing. Standing CS swapna at wall w/ ball. Trial sidelying trio. Progress CS swapna into small ROM for rot away from neutral, can trial added band. Cont work on scap depression and overall scap mobility curt with cervical spine, seated TS ext and rot. Progress w/ RTC strength, rows, low rows Manual STM to L and R neck/ scap. Can trial taping as needed
--- NOTE | 2024-06-06 11:22 | PT.OTN ---
Current Diagnoses Stiffness of other specified joint, not elsewhere classified (06/06/24) Cervicalgia (06/06/24) Paresthesia of skin (06/06/24) Other lack of coordination (06/06/24) Weakness (06/06/24) Physical Therapy Treatment Note PT-OP-A Visit Information Start: 04/05/24 16:11 Freq: Status: Active Protocol: Document 06/06/24 10:46 NM (Rec: 06/06/24 11:21 NM [id number]) Out-Patient Physical Therapy Visit Information Visit Information Visit Type Progress Note Visit Start Time 10:47 Visit Stop Time 11:07 Visit Number 10 Number of CHILDREN[employer] DIRECTOR Visits 0 Evaluation Information Evaluation Date 04/06/24 Precautions Precautions cervical and lumbar fusions, hx of thoracic compression fracture and anterior wedge deformities; cardiac stents PT-OP-B Current Condition Start: 04/05/24 16:11 Freq: Status: Active Protocol: Document 04/06/24 10:42 NM (Rec: 04/06/24 11:33 NM [id number]) Current Condition History of Current Condition Onset Date chronic Current Complaints pain, spasms History of Current Condition Pt presents with neck pain. He reports spasms that sets of migraines. He is getting trigger point injections for pain with Dr. Arellano; has had about 6 rounds. Pt planning to get a MRI, has to have PT. He reports spasms are worse with looking down, occasionally with looking up, turning L. Pain is worse on L side, never on R side. Has had 2 cervical fusions in 1995 (C3-C4 fusion ) and then more recently in 2020 (C6-C6 and screw in C6). He reports that he has had neck pain still since 2020. He has seen pain management. Pt numbness/tingling from posterior R shoulder down R arm into fingers 4-5 (numb/ tingling); has had since recovery from 2020 fusion. Achiness in R arm is worse in am and pm. He has an appt with Dr. Hardy next week for pain management. Pt has hx of severe 2nd and 3rd deg [place], 95% coverage from abdomen; about 35 years ago. Has cervical spine and lumbar spine fusions Treatment Goals Patient/Caregiver Goals open to any solutions Current Functional Impairments (Reported) Functional Limitations- ADL's reaching for top shelf doing dishes/looking down PT-OP-C Subjective Start: 04/05/24 16:11 Freq: Status: Active Protocol: Document 06/06/24 10:46 NM (Rec: 06/06/24 11:21 NM [id number]) OP-PT Subjective Patient Comments Patient Comments Pt reports that he has had fluid drained from lungs. Will likely have drained again. Reports chest pain and shortness of breath due to fluid on lungs. He is planning to stop trigger point treatment. He continues to have spasms on L side with turning head, no change. Has appt iwht Dr. Garcia PCP today for lung pain. PT and pt discussed discharge from PT as no progress made with referral back to referring provider for further assessment. PT-OP-F Manual Assessment Start: 04/05/24 16:11 Freq: Status: Active Protocol: Document 04/06/24 10:42 NM (Rec: 04/06/24 11:33 NM [id number]) Manual Assessments Soft Tissue Assessment Soft Tissue Mobility Assessment Demos increased restrictions of B thoracic R>L and cervical paraspinals L>R especially at posterior cuff/lat and posterior SCM Joint Mobility Assessment Joint Mobility Assessment Decreased scapular mobility B, decreased cervica/thoracic/ lumbar mobility PT-OP-G Mobility & Gait Start: 04/05/24 16:11 Freq: Status: Active Protocol: Document 04/06/24 10:42 NM (Rec: 04/06/24 12:50 NM [id number]) OP Gait Assessment Gait Gait Assistance Required: Independent Distance (Feet) 150 Assistive Devices Assistive Device None Comments Gait Comments Demos decreased trunk rotation , very stiff posture during gait PT-OP-H Neuro Start: 04/05/24 16:11 Freq: Status: Active Protocol: Document 04/06/24 10:42 NM (Rec: 04/06/24 11:33 NM [id number]) Sensation Evaluation Comments Summary Comments Reports heightened sensation along following dermatomes compared to contralateral side to light touch sensation C7, C8, T1, T2, C3-C5 Deep Tendon Reflex & Clonus Assessment Deep Tendon Reflex Bilateral Tricep Deep Tendon Reflex 1+ Diminished Bilateral Bicep Deep Tendon Reflex 1+ Diminished Bilateral Brachioradialis Deep Tendon Reflex 1+ Diminished PT-OP-J Posture/Palpation/Skin Start: 04/05/24 16:11 Freq: Status: Active Protocol: Document 04/06/24 10:42 NM (Rec: 04/06/24 11:33 NM [id number]) Posture Evaluation Position Standing Head/C-Spine Posture Forward Head T-Spine Posture Increased Kyphosis L-Spine Posture Decreased Lordosis Shoulder Posture (L) Rounded,(R) Rounded Scapula Posture (R) Protracted Arm Posture (L) Internally Rotated,(R) Internally Rotated Comments Posture Comments trunk stiffness Palpation Assessment Location cervical spine Palpation Details Tenderness along L tranverse processes especially into lower cervical spine; L SCM, R scapula. Soft tissue restrictions of paraspinals and periscapulars no point tenderness to cervical spinous processes PT-OP-K Range of Motion Start: 04/05/24 16:11 Freq: Status: Active Protocol: Document 06/06/24 10:46 NM (Rec: 06/06/24 11:21 NM [id number]) Cervical Spine Range of Motion Cervical Spine Active Degrees Flexion 35 Extension 30 Rotation Left 60 Rotation Right 55 Lateral Flexion Left 15 Lateral Flexion Right 15 Comments pain with flexion and extension, L LF, R rotation 04/27/24: 35 deg flex, 30 deg ext, 20 deg LF, 15 deg L LF, 40 deg L rot, 45 deg R rot PT-OP-L Special Tests Start: 04/05/24 16:11 Freq: Status: Active Protocol: Document 04/10/24 09:47 NM (Rec: 04/10/24 10:43 NM [id number]) Special Tests Cervical Spine Special Tests Vertebral A. screen Test Results BP 118/75 mmHg; no positional test d/t fusion; cont assess PNS Comments cardiac and carotid a. ausc/ palp WLF- has stents; CN 1-6,8 ,10-11 intact Spurling's Test Results + Comments no compression ULTT Test Results + Comments radial and ulnar nn. PT-OP-M Strength Start: 04/05/24 16:11 Freq: Status: Active Protocol: Document 06/06/24 10:46 NM (Rec: 06/06/24 11:21 NM [id number]) Cervical Spine Strength Cervical Spine Manual Muscle Testing Flexion (C1-2) 4 Good Extension 4 Good Rotation Left 4 Good Rotation Right 4 Good Lateral Flexion Left (C3) 4- Good- Lateral Flexion Right (C3) 4- Good- Comments extension worst but slight increase 06/06/24: 4/5 for all except lateral flexion 4-/5; no pain PT-OP-Q Treatments Start: 04/05/24 16:11 Freq: Status: Active Protocol: Document 06/06/24 10:46 NM (Rec: 06/06/24 11:21 NM [id number]) Therapeutic Activity Therapeutic Activity Body mechanics Reps/Minutes 10 min Comments Education and demonstration of cervical spine position and trunk position with lifting, carrying, reaching empty crate sitting position Reps/Minutes 5 min Comments Education and handout provided for sitting ergonomics to address reducing strain on cervical spine, promote better and safer posture Self-Care/Home Management Treatment Education Other Education Pt makes joke about cranial amputation. PT discussed mental health resources with pt and recommended that pt seek out mental health counselor or therapist PT and pt also discussed maintenance program, but did not perform today due to pt feeling poorly PT-OP-T Assessment and Plan Start: 04/05/24 16:11 Freq: Status: Active Protocol: Document 06/06/24 10:46 NM (Rec: 06/06/24 11:21 NM [id number]) Physical Therapy Assessment Goals 3 Impairment pain with sleeping, ADLs Impairment . [employer] Operator Goal (LTG) Pt will be educated on body mechanics and ergonomics to improve posture and ability to perform ADLs with less pain 06/06/24: pt has been for been educated and provided with handouts on body mechanics and sitting ergonomics LTG Duration 10 weeks MET 2 Impairment pain with ADLs; NDI 46/100, quickdash 50% impairment Impairment . Assisted Goal (LTG) Pt will decrease NDI impairment to <25% in order to demonstrate improvements in ability to perform ADLs/IADLs with less pain 04/27/24: 44% impairment, mild improvement from evaluation 06/06/24: 50% impairment- worse since evaluation LTG Duration 10 weeks NOT MET 1 Impairment not performing HEP Impairment . [employer] Operator Goal (LTG) Pt will be IND with HEP at least 3x/wk in order to maximize progress with PT and transition to maitenance program upon discharge from PT 04/27/24: compliant with HEP prior to hospitalization 06/06/24: pt reports comliance with HEP 3x/wk LTG Duration 8 weeks MET Progress Towards Goals Progress Comments 2/3 LTGs met Assessment Summary Assessment Decreased session time today due to pt illness. PT and pt discussed discharge from PT today as pt is not progressing with PT and would benefit from time off to heal due to repeated lung illnesses. PT and pt in agreement. Education provided on maintenance program but did not perform due to pt feeling poorly. Emphasis today on posture, sitting ergonomics, and body mechanics training with both PT and pt performing with empty crate. PT also provided education to pt on mental health resources Physical Therapy Plan Frequency and Duration Frequency of Treatment 2x/Week Duration of treatment (weeks) 8 Plan of Care Start Date 04/27/24 Plan of Care End Date 06/22/24 Therapeutic Interventions Therapeutic Interventions Gait Training,Home Exercise Program,Joint Mobilizations, Manual Therapy,Neuromuscular Re-education,Patient/Caregiver Education,Self-Care/Home Management,Sensory Integration ,Soft Tissue Mobilization, Taping,Therapeutic Activities, Therapeutic Exercises Modalities Cold Pack/Ice Massage,Hot Packs Discharge Physical Therapy Discharge Reasons Plateau in Progress Discharge Comments Pt is not progressing with PT. Demos worse scores on NDI and with subjective reports of symptom management since beginning PT. PT and pt discussed discharge from PT, PT and pt in agreement. Pt planning to keep up with maintenance program that do not exacerbate symptoms. At this time, pt would benefit from more advanced imaging of cervical spine and further evaluation from neurosurgeon to address symptom management as pt is not progressing with PT. Next Visit Focus/Plan Next Note Type Discharge Summary Next Visit Plan discharge from PT
== END 2024-06-11 14:57 | disposition home or self-care (01) ==
LOC: PHYS 10:45
PROVIDERS: Family Provider Family Medicine; PCP Family Medicine; Referring Provider Psychiatry & Neurology Neurology; Visit Provider Psychiatry & Neurology Neurology
DX: M54.2 Cervicalgia (principal); R20.2 Paresthesia of skin; R53.1 Weakness; R27.8 Other lack of coordination; M25.69 Stiffness of other specified joint, not elsewhere classified
CPT/HCPCS: 97110; 97140; 97161; 97530

== ENCOUNTER → 2024-06-18 11:55 | Outpatient (CLI) | payer MEDICARE, OTHER, SELFPAY ==
[2024-01-12 02:53] VITALS: BMI 26.4
--- NOTE | 2024-06-18 11:57 | DI.RAD.S_ITS ---
PROCEDURE: XR CHEST 2V INDICATIONS: right pleural effusion TECHNIQUE: 2 views of the chest were acquired. COMPARISON: [facility], CR, XR CHEST 2V, 06/05/2024, 14:34. [facility], CR, XR CHEST 2V, 05/18/2024, 16:32. [facility], CR, XR CHEST 1V, 01/11/2024, 22:00. [facility], CR, XR CHEST 1V, 12/15/2022, 14:51. FINDINGS: Surgical changes and devices: Partially identified cervical fusion hardware. Lungs and pleura: Re-identified large right pleural effusion with passive atelectasis of the right lung parenchyma. No pneumothorax. No left pleural effusion. Left lung parenchyma within normal limits. Mediastinum: Mediastinal contours are normal. Heart size is normal. Bones and chest wall: No suspicious bony abnormalities. Soft tissues appear unremarkable. IMPRESSION: No significant change in appearance of large right pleural effusion. Dictated by: Santana Arrieta M.D. on 06/18/2024 at 15:27 Approved by: Santana Arrieta M.D. on 06/18/2024 at 15:28
== END ==
PROVIDERS: Family Provider Family Medicine; PCP Family Medicine; Referring Provider Family Medicine; Visit Provider Family Medicine
DX: J90 Pleural effusion, not elsewhere classified (principal); Z98.1 Arthrodesis status
CPT/HCPCS: 71046

== ENCOUNTER → 2024-06-27 15:06 | Outpatient (CLI) | payer MEDICARE, OTHER, SELFPAY ==
[2024-01-12 02:53] VITALS: BMI 26.4
--- NOTE | 2024-06-27 15:08 | DI.MRI.S_ITS ---
PROCEDURE: MR HEAD/BRAIN WO/W CON INDICATIONS: CLEM OF RIGHT UPPER LOBE LUNG TECHNIQUE: Noncontrast axial T1 spin echo, axial T2 fast spin echo, sagittal and axial FLAIR, coronal T2 fast spin echo, axial gradient echo, axial diffusion and ADC through the brain. After the administration of contrast, axial and coronal and sagittal T1 spin echo with fat saturation through the brain. COMPARISON: None. FINDINGS: Image quality: Excellent. CSF spaces: Basal cisterns are patent. No extra-axial fluid collections. Ventricles are normal in size and shape. Brain: No midline shift. No intracranial bleeds or masses. No abnormal intracranial enhancement. There is cerebral volume loss for age. There is periventricular white matter chronic small vessel ischemic change. The brainstem appears normal. Diffusion-weighted images demonstrate no acute infarct. No chronic ischemic insults. Normal intravascular flow voids are present. Skull and face: Calvarial marrow is normal in signal. Bilateral lens replacements. Otherwise, the orbits are unremarkable. Sinuses: Sinuses and mastoids appear clear. IMPRESSION: No evidence of intracranial metastatic disease. No acute intracranial abnormalities or abnormal intracranial enhancement. Age-related global volume loss and chronic microvascular ischemic changes are present. Dictated by: Sajan Jett M.D. on 06/27/2024 at 16:11 Approved by: Sajan Jett M.D. on 06/27/2024 at 16:15
== END ==
PROVIDERS: Family Provider Family Medicine; PCP Family Medicine; Referring Provider Internal Medicine Pulmonary Disease; Visit Provider Internal Medicine Pulmonary Disease
DX: D38.1 Neoplasm of uncertain behavior of trachea, bronchus and lung (principal)
CPT/HCPCS: 70553; A9579

== ENCOUNTER → 2024-07-06 08:15 | Outpatient (CLI) | payer MEDICARE, OTHER, SELFPAY ==
[2024-01-12 02:53] VITALS: BMI 26.4
[2024-07-06 08:49] LABS: Add Manual Diff / Slide Review NO; Basophils Absolute Auto 0 /uL (0-100); Basophils Percent Auto 0.5 % (0-2); Eosinophils Absolute Auto 100 /uL (0-450); Eosinophils Percent Auto 1.1 % (2-4); Hematocrit 37.8 % (41-53); Hemoglobin 12.8 g/dL (13.5-17.5); Lymphocytes Absolute Auto 900 /uL (1100-4500); Mean Corpuscular HGB Conc 33.8 % (30-36); Mean Corpuscular Hemoglobin 29.6 PG (26-34); Mean Corpuscular Volume 87.6 fL (80-100); Monocytes Absolute Auto 800 /uL (0-900); Monocytes Percent Auto 11.8 % (3-14); Neutrophils Absolute Auto 4600 /uL (1500-7000); Neutrophils Percent Auto 72.6 % (50-75); Platelet Count 232 X10^3/uL (150-400); Red Blood Cell Count 4.32 X10^6/uL (4.5-5.9); Red Cell Distribution Width 14.4 % (11.6-14.8); White Blood Cell Count 6.4 X10^3/uL (4.5-11.0)
[2024-07-06 08:58] LABS: INR 1.2 (0.9-1.3); Prothrombin Time 13.1 SECONDS (9.4-12.5)
[2024-07-06 09:05] LABS: Alanine Aminotransferase 44 IU/L (<50); Albumin 3.6 g/dL (3.5-5.0); Albumin Globulin Ratio 1.3 (1.0-2.8); Alkaline Phosphatase 165 U/L (38-126); Aspartate Aminotransferase 53 IU/L (17-59); BUN Creatinine Ratio 22.1 (6-22); Bilirubin Total 0.8 mg/dL (0.2-1.3); Blood Urea Nitrogen 17 mg/dL (9-20); Calcium 9.2 mg/dL (8.4-10.2); Carbon Dioxide 31 mmol/L (22-32); Chloride 99 mmol/L (98-107); Estimated Glomerular Filt Rate > 60 mL/min (>60); Globulin 2.8 g/dL (1.7-4.1); Glucose 104 mg/dL (80-110); HEMOLYSIS < 15 (0-50); Potassium 4.6 mmol/L (3.4-5.1); Sodium 134 mmol/L (137-145); Total Protein 6.4 g/dL (6.3-8.2)
== END ==
PROVIDERS: Family Provider Family Medicine; PCP Family Medicine; Referring Provider Student in an Organized Health Care Education/Training Program; Visit Provider Student in an Organized Health Care Education/Training Program
DX: C34.90 Malignant neoplasm of unspecified part of unspecified bronchus or lung (principal)
CPT/HCPCS: 36415; 80053; 85025; 85610

== ENCOUNTER 2024-09-04 12:32 | Outpatient (CLI) | payer MEDICARE, OTHER, SELFPAY ==
[2024-01-12 02:53] VITALS: BMI 26.4
[2024-09-04] VITALS (9 sets, daily range): BP systolic 117–129; BP diastolic 63–77; PULSE 67–81; RESP 14–18; TEMP 36.4; O2SAT 95–100
[2024-09-04] MEDS: MIDAZOLAM 2 MG/2 ML VIAL 1 MG IV (13:28)
[2024-09-04] MEDS: iopamidoL 15 ML VIAL 3 ML INJ (13:36)
[2024-09-04] MEDS: BETAMETHASONE 30 MG/5 ML MDV 12 MG INJ (13:36)
[2024-09-04] MEDS: DEXAMETHASONE 10 MG/ML VIAL INJ (13:37)
[2024-09-04] MEDS: BUPIVACAINE 0.25% (PF) VIAL 2 ML INJ (13:37)
--- NOTE | 2024-09-04 13:47 | P.PCN_ITS ---
Date/Time/Diagnoses Date of procedure: 09/04/24 Time of procedure: 13:47 Pre-procedure diagnosis: FORAMINAL STENOSIS WITH LE SYMPTOMS Post-procedure diagnosis: same Procedure Notes Procedure: 1. FLUOROSCOPICALLY GUIDED CONTRAST CONTROLLED TRANSFORAMINAL EPIDURAL STEROID INJECTION - RIGHT L5/S1 TFESI Indications: Alfredo is referred by Dr. Garcia for treatment of Foraminal Stenosis with Right LE Symptoms Physician: Alfredo Hardy Total Fluoroscopy time (seconds): 8 Total sedation minutes: 14 Complications: none Procedure in detail & Post-procedure care: FINDINGS Foraminal Nerve Root Compression secondary to disc disease and facet hypertrophy DESCRIPTION OF PROCEDURE Following review of allergy and review of potential side effects and complications, including, but not necessarily limited to, infection, allergic re action, local tissue breakdown, stroke, temporary or permanent nerve injury, paralysis, and possible , the patient indicated that the patient understood and agreed to proceed. An informed consent document was signed by the patient, witnessed by a nurse, and placed in the patient's chart. Additionally, other treatment options including medications, modalities, and physical therapy were reviewed with the patient. After review of previous anaesthesic history and IV conscious sedation the patient was deemed safe to proceed with today?s procedure with IV conscious sedation as ASA class II designation. Safety time-out was performed to confirm patient ID, procedure to be performed and site of procedure. IV sedation was accomplished with a combination of 1mg of Versed was administered by the RN after DO order, titrated to patient comfort during the course of the procedure while the patient remained responsive to all verbal commands In the prone position following sterile prep and drape of the lumbar region, the right L5/S1 posterior neuroforamen was identified fluoroscopically. The skin was anesthetized via a 25-gauge 1.5-inch needle with 1% lidocaine solution. At this point, a 25-gauge 3.5-inch spinal needle was atraumatically introduced and advanced under fluoroscopic guidance through the posterior right L5/S1 neuroforamen to approximately the anterior aspect of the canal. Depth was confirmed on lateral view. Following negative aspiration, injection of approximately 1.5cc of Isovue 200 under live fluoroscopy in the AP view confirmed excellent flow along the nerve root, into the epidural space without vascular or intrathecal uptake observed Radiological data, including multiple fluoroscopic views of the lumbosacral spine, reveal a spinal needle at the right L5/S1 posterior neuroforamen. Subsequent views show flow of contrast material flowing superiorly and inferiorly along the nerve root confirming epidural flow. Subsequently, a test dose of 1.5 cc of 1% lidocaine solution was administered and patient was observed for two minutes for signs or symptoms of complications, including abdominal pain, shortness of breath, bilateral upper or lower extrem ity weakness, nausea and vomiting, prior to steroid injection. At this point, a total of 2cc or 10mg of dexamethasone and 6mg of betamethasone was injected without incident. The procedure tolerated the procedure well without signs or symptoms of complications prior to transfer to the recovery area continued monitoring without incident. The patient was then transferred to the recovery area where they were observed for an appropriate time after the injection. The patient reported a VAS score of 7 prior to the procedure and a post- procedure VAS of 0. POST OP INSTRUCTIONS The patient was provided a Pain Log to continue to record their response to the target-specific procedure prior to follow-up visit with their referring physician. Additionally, specific post-injection care instructions and a contact number to our office were provided if concerns arise regarding possible complications associated with the procedure are suspected.
== END 2024-09-04 13:58 | disposition home or self-care (01) ==
PROVIDERS: Family Provider Family Medicine; PCP Family Medicine; Referring Provider Physical Medicine & Rehabilitation; Visit Provider Physical Medicine & Rehabilitation
DX: M48.07 Spinal stenosis, lumbosacral region (principal); M51.17 Intervertebral disc disorders with radiculopathy, lumbosacral region; M47.27 Other spondylosis with radiculopathy, lumbosacral region
CPT/HCPCS: 64483; 99152; J0702; J1100; J2250; J3490

== ENCOUNTER → 2024-09-07 06:41 | Outpatient (CLI) | payer MEDICARE, OTHER, SELFPAY ==
[2024-01-12 02:53] VITALS: BMI 26.4
[2024-09-07 09:19] LABS: Cholesterol 133 mg/dL (140-199); HDL Cholesterol 48 mg/dL (40-60); LDL Cholesterol Calculated 60 mg/dL (<100); Triglycerides 127 mg/dL (35-150)
== END ==
PROVIDERS: Family Provider Family Medicine; PCP Family Medicine; Referring Provider Family Medicine; Visit Provider Family Medicine
DX: E78.5 Hyperlipidemia, unspecified (principal)
CPT/HCPCS: 36415; 80061

== ENCOUNTER → 2024-11-19 18:00 | Outpatient (CLI) | payer MEDICARE, OTHER, SELFPAY ==
[2024-01-12 02:53] VITALS: BMI 26.4
[2024-11-19 19:03] LABS: Influenza A - CEPHEID Flu A NEGATIVE (NEGATIVE); Influenza B - CEPHEID Flu B NEGATIVE (NEGATIVE); Respiratory Syncytial Virus Negative (Negative)
[2024-11-19 19:09] LABS: COVID-19 CEPHEID 4-PLEX PCR Negative (Negative)
== END ==
PROVIDERS: Family Provider Family Medicine; PCP Family Medicine; Visit Provider Nurse Practitioner Family
DX: R30.0 Dysuria (principal); R05.1 Acute cough; R50.9 Fever, unspecified; Z20.822 Contact with and (suspected) exposure to COVID-19
CPT/HCPCS: 0241U; 81002; 87086

== ENCOUNTER → 2025-02-01 16:23 | Outpatient (CLI) | payer MEDICARE, OTHER, SELFPAY ==
[2025-01-21 01:07] VITALS: BMI 24.7
[2025-02-01 17:48] LABS: Appearance Urine UA CLEAR; Bilirubin Urine UA NEGATIVE (NEGATIVE); Color Urine UA YELLOW; Glucose Urine UA NEGATIVE (Negative); Ketones Urine UA NEGATIVE (NEGATIVE); Leukocyte Esterase Urine UA NEGATIVE (NEGATIVE); Nitrite Urine UA NEGATIVE (Negative); Occult Blood Urine UA NEGATIVE (Negative); Protein Urine UA NEGATIVE (Negative); Specific Gravity Urine UA 1.020 (1.000-1.035); Urobilinogen Urine UA 1.0 E.U./dL (0.2); pH Urine UA 6.0 (4.5-8.0)
[2025-02-01 17:58] LABS: Culture Indicated Urine Cult Not Indicated
== END ==
PROVIDERS: PCP Family Medicine; Referring Provider Urology; Visit Provider Urology
DX: N39.3 Stress incontinence (female) (male) (principal); N40.1 Benign prostatic hyperplasia with lower urinary tract symptoms
CPT/HCPCS: 81001

== ENCOUNTER 2025-02-28 14:32 | Outpatient (CLI) | payer MEDICARE, OTHER, SELFPAY ==
[2025-01-21 01:07] VITALS: BMI 24.7
[2025-02-28] VITALS (11 sets, daily range): BP systolic 103–130; BP diastolic 52–77; PULSE 57–68; RESP 14–20; TEMP 36.9; O2SAT 95–100
[2025-02-28] MEDS: MIDAZOLAM 2 MG/2 ML VIAL IV (15:47)
[2025-02-28] MEDS: LIDOCAINE 1% 20 ML 5 ML INJ (15:53)
--- NOTE | 2025-02-28 16:06 | PM.PROC.IR.1 ---
Date/Time/Diagnoses Date of procedure: 02/28/25 Time of procedure: 16:06 Pre-procedure diagnosis: 1. FACET ARTHROPATHY Post-procedure diagnosis: same Procedure Notes Procedure: 1. BILATERAL- L5 and S1 DIAGNOSTIC MB BLOCKS with LA Anesthetic Indications: Alfredo is referred by Dr. Garcia for treatment of Bilateral Axial LBP. Physician: Alfredo Hardy Total Fluoroscopy time (seconds): 9 Total sedation minutes: 14 Complications: none Procedure in detail & Post-procedure care: DESCRIPTION OF PROCEDURE Fluoroscopically guided, contrast-controlled bilateral L5 and S1 medial branch blocks with 0.5cc of 0.5% Marcaine. Following review of allergy and review of potential side effects and complications, including, but not necessarily limited to, infection, allergic reaction, local tissue breakdown, nerve injury, paralysis, stroke and possible , the patient indicated that the patient understood and agreed to proceed. An informed consent document was signed by the patient, witnessed by a nurse, and placed in the patient's chart. After review of previous anaesthesic history and IV conscious sedation the patient was deemed safe to proceed with today's procedure with IV conscious sedation as ASA class II designation. Safety time-out was performed to confirm patient ID, procedure to be performed and site of procedure. IV sedation was accomplished with a combination of 2mg of Versed was administered by the RN after DO order, titrated to patient comfort during the course of the procedure while the patient remained responsive to all verbal commands In the prone position, following sterile prep and drape of the lumbar region, the right L5 and S1 anatomical location of the medial branch of the dorsal ramus was identified fluoroscopically. Subsequently an anesthetic skin wheal using 1% lidocaine solution was initiated at each of the anatomical spots. Subsequently then a 22-gauge 3.5-inch spinal needle was atraumatically introduced and advanced under fluoroscopic guidance at each of the corresponding sites at the right L5 and S1 MB. After negative aspiration, 0.2cc of Isovue 200 was injected, confirming placement without vascular or intrathecal uptake. Subsequently then 0.5cc of 0.5% Marcaine solution was injected at each of the corresponding sites at the right L5 and S1 medial branch locations. The identical procedure was replicated on the left. The patient tolerated the procedure well without signs or symptoms of complications prior to transfer to the recovery area continued monitoring without incident. Post-procedure, the patient was monitored initiating provocative activities to measure the amount of relief from block of the facetogenic pain. The patient reported a VAS of 7 prior to the procedure and a post-procedure VAS of 1. It has been a pleasure to assist in the diagnostic and therapeutic care of your patient. POST OP INSTRUCTIONS The patient was provided with a Pain Log to complete over the next several hours and subsequent days prior to the patient's follow up with the ordering physician. If the patient has facilities mechanical design engineer relief to the solution applied, then they may be a candidate for medial branch rhizotomy. The patient is aware, was provided, once again, with a Pain Log and will follow up with the referring physician for review and clinical correlation
== END 2025-02-28 17:00 | disposition home or self-care (01) ==
PROVIDERS: PCP Family Medicine; Referring Provider Physical Medicine & Rehabilitation; Visit Provider Physical Medicine & Rehabilitation
DX: M47.817 Spondylosis without myelopathy or radiculopathy, lumbosacral region (principal); Z96.89 Presence of other specified functional implants; Z98.1 Arthrodesis status
CPT/HCPCS: 64493; 99152; J2250

== ENCOUNTER → 2025-03-21 13:04 | Outpatient (CLI) | payer MEDICARE, OTHER, SELFPAY ==
[2025-01-21 01:07] VITALS: BMI 24.7
== END ==
PROVIDERS: PCP Family Medicine; Referring Provider Family Medicine; Visit Provider Physical Medicine & Rehabilitation
DX: M48.061 Spinal stenosis, lumbar region without neurogenic claudication (principal); M96.1 Postlaminectomy syndrome, not elsewhere classified; M47.816 Spondylosis without myelopathy or radiculopathy, lumbar region; Z98.1 Arthrodesis status; Z96.89 Presence of other specified functional implants
CPT/HCPCS: 62323; 99152; J1010; J1100; J2250

== ENCOUNTER 2025-03-21 13:23 | Outpatient (CLI) | payer MEDICARE, OTHER, SELFPAY ==
[2025-01-21 01:07] VITALS: BMI 24.7
[2025-03-21] VITALS (8 sets, daily range): BP systolic 106–135; BP diastolic 55–75; PULSE 60–72; RESP 15–20; O2SAT 89–100
[2025-03-21] MEDS: MIDAZOLAM 2 MG/2 ML VIAL IV (14:19)
[2025-03-21] MEDS: LIDOCAINE 2% INJ MDV 20ML 5 ML INJ (14:28)
--- NOTE | 2025-03-21 14:39 | PM.PROC.IR.1 ---
Date/Time/Diagnoses Date of procedure: 03/21/25 Time of procedure: 14:39 Pre-procedure diagnosis: 1. MULTILEVEL SPINAL STENOSIS 2. POST FUSION SYNDROME Post-procedure diagnosis: same Procedure Notes Procedure: 1. FLUOROSCOPICALLY GUIDED CONTRAST CONTROLLED CAUDAL EPIDURAL STEROID INJECTION, Indications: Alfredo is referred by Dr. Garcia for treatment of Multilevel Stenosis Physician: Alfredo Hardy Total Fluoroscopy time (seconds): 22 Total sedation minutes: 16 Complications: none Procedure in detail & Post-procedure care: FINDINGS Multilevel Stenosis S/p Lami/Fusion Syndrome DESCRIPTION OF PROCEDURE Fluoroscopically guided, contrast controlled caudal epidural steroid injection with Conscious Sedation Following review of allergy and review of potential side effects and complications, including but not necessarily limited to infection, allergic reaction, local tissue breakdown, temporary or permanent nerve injury, stroke, paralysis, and possible , the patient indicated that they understood and agreed to proceed. An informed consent document was signed by the patient, witnessed by a nurse, and placed in the patient's chart. Additionally, other treatment options including medications, modalities, and physical therapy were reviewed with the patient. After review of previous anaesthesic history and IV conscious sedation the patient was deemed safe to proceed with today?s procedure with IV conscious sedation as ASA class II designation. Safety time-out was performed to confirm patient ID, procedure to be performed and site of procedure. IV sedation was accomplished with a combination of 2mg of Versed administered by the RN after DO order, titrated to patient comfort during the course of the procedure while the patient remained responsive to all verbal commands In the prone position, following sterile prep and drape of the lumbar region, the sacral hiatus was identified fluoroscopically. The skin was anesthetized via a 25-gauge, 1.5-inch needle with approximately 2cc of 1% lidocaine solution. At this point, a 25-gauge, 3inch needle was atraumatically introduced and advanced under fluoroscopic guidance to the corresponding sacral hiatus and entering the sacral canal. Following negative aspiration, injection of approximately 0.3cc of Isovue 300 confirmed interarticular placement without vascular uptake. Radiological data, including multiple fluoroscopic views of the lumbosacral spine, reveal a spinal needle in the sacral canal through the sacral hiatus. Subsequent views show flow of contrast material superiorly and inferiorly in the sacral canal without vascular or intrathecal uptake. At this point, a total of 6cc including 3cc including 80mg depo medrol and 10mg of dexamethasone and 3cc of 2% lidocaine solution was injected without complication. The patient tolerated the procedure well without signs or symptoms of complications prior to transfer to the recovery area continued monitoring without incident. The patient was then transferred to the recovery area where they were observed for an appropriate period of time after the injection. The patient reported a VAS score of 8 prior to the procedure and a post-procedure VAS of 2. POST OP INSTRUCTIONS The patient was provided a Pain Log to continue to record their response to the target-specific procedure prior to their follow-up visit with the referring physician. Additionally, specific post-injection care instructions and a contact number to our office were provided if concerns arise regarding possible complications associated with the procedure are suspected.
== END 2025-03-21 15:12 | disposition admitted as inpatient to this hospital (09) ==
LOC: RAD 13:23
PROVIDERS: PCP Family Medicine; Referring Provider Family Medicine; Visit Provider Physical Medicine & Rehabilitation
DX: M48.061 Spinal stenosis, lumbar region without neurogenic claudication (principal); M96.1 Postlaminectomy syndrome, not elsewhere classified
CPT/HCPCS: J1010; J1100; J2250

== ENCOUNTER → 2025-05-20 14:11 | Outpatient (CLI) | payer MEDICARE, OTHER, SELFPAY ==
[2025-01-21 01:07] VITALS: BMI 24.7
[2025-05-20 14:46] LABS: Appearance Urine UA CLEAR; Bilirubin Urine UA NEGATIVE (NEGATIVE); Color Urine UA YELLOW; Glucose Urine UA NEGATIVE (Negative); Ketones Urine UA NEGATIVE (NEGATIVE); Leukocyte Esterase Urine UA NEGATIVE (NEGATIVE); Nitrite Urine UA NEGATIVE (Negative); Occult Blood Urine UA NEGATIVE (Negative); Protein Urine UA NEGATIVE (Negative); Specific Gravity Urine UA 1.020 (1.000-1.035); Urobilinogen Urine UA 1.0 E.U./dL (0.2); pH Urine UA 5.5 (4.5-8.0)
[2025-05-20 14:48] LABS: Culture Indicated Urine Cult Not Indicated
== END ==
PROVIDERS: PCP Family Medicine; Referring Provider Family Medicine; Visit Provider Family Medicine
DX: R30.0 Dysuria (principal)
CPT/HCPCS: 81001